=== PATIENT | female | born 1955 | race Caucasian/White ===

== ENCOUNTER 2023-08-04 11:48 | Outpatient (OUT) | payer OTHER, MEDICARE, SELFPAY ==
--- NOTE | 2023-08-04 13:49 | PM.CN ---
Consult Note: HPI Data of Consult Patient: new to practice Consult date: 08/04/23 Requesting Physician: Bouchra Angel MD Primary Care Provider: CLAY TAVERAS Consult Narrative Reason for consult: low back pain Narrative: pleasant 68yof who presents for evaluation. Notes increasing low back pain for past several months. Previously underwent lumbar RFA in 2017, which provided significant relief until recently. Engaged in >6 weeks of provider directed home exercise program, with limited relief. Utilizes tramadol as needed. Denies adverse medication side effects. cc:: CC: Bouchra Angel MD Review of Systems ROS Status of ROS 10 or more systems reviewed and unremarkable except as noted in history and below Meds Home Medications and Allergies Home Medications Medication Instructions Recorded Confirmed Type amlodipine 2.5 mg tablet 2.5 mg PO DAILY 08/04/23 08/04/23 History aspirin 81 mg tablet,delayed 81 mg PO DAILY 08/04/23 08/04/23 History release (Adult Aspirin Regimen) diphenhydramine HCl 50 mg capsule 50 mg PO DAILY PRN sleep 08/04/23 08/04/23 History (Nightime Sleep) ginkgo biloba 40 mg tablet 120 mg PO DAILY 08/04/23 08/04/23 History magnesium 250 mg tablet 500 mg PO DAILY 08/04/23 08/04/23 History meloxicam 15 mg tablet 15 mg PO DAILY 08/04/23 08/04/23 History ytiejugp-qgr-fcnn-FA-Ca carb-vit K 1 tab PO DAILY 08/04/23 08/04/23 History 18 mg iron-400 mcg-500 mg tablet (One-A-Day Womens Formula) omega 1-koj-mdp-fish oil 1,000 mg 1 cap PO BID 08/04/23 08/04/23 History (120 mg-180 mg) capsule (Fish Oil) omeprazole 40 mg capsule,delayed 40 mg PO DAILY 08/04/23 08/04/23 History release rosuvastatin 10 mg tablet (Crestor) 10 mg PO DAILY 08/04/23 08/04/23 History tramadol 50 mg tablet 50 mg PO DAILY 08/04/23 08/04/23 History turmeric 400 mg capsule 400 mg PO BID 08/04/23 08/04/23 History vitamin B complex (Complex B-100 1 tab PO DAILY 08/04/23 08/04/23 History tablet,extended release) zinc 50 mg capsule 50 mg PO DAILY 08/04/23 08/04/23 History Allergies Allergy/AdvReac Type Severity Reaction Status Date / Time No Known Drug Allergies Allergy Verified 08/04/23 13:33 Exam Constitutional Common normals: no apparent distress, oriented x3 and healthy appearing Respiratory Common normals: normal respiratory effort Effort & inspection: able to speak in complete sentences Back & Pelvis Other: Tenderness to palpation in lumbar spine and paraspinal musculature. Pain elicited with flexion, extension, lateral rotation. Facet loading maneuvers positive bilaterally. Coordination intact. Extremity Common normals: normal to inspection Neuro Common normals: oriented x3, CN's II-XII intact bilaterally and no focal motor deficits Psych Common normals: mental status grossly normal and cooperative Assessment and Plan Assessment and Plan (1) Lumbar spondylosis: Plan Pleasant 68yof who presents for evaluation. Failed >6 weeks of conservative measures, as noted above. Given symptoms and previous relief, would schedule for bilateral L4-5, L5-S1 medial branch blocks under fluoroscopic guidance with intention of proceeding to RFA. She is in agreement. Will also obtain lumbar XR to update. Medications reviewed, no changes. Follow up after procedure.
== END 2023-08-04 11:49 | disposition home or self-care (01) ==
PROVIDERS: PCP Internal Medicine; Visit Provider Anesthesiology
DX: M47.816 Spondylosis without myelopathy or radiculopathy, lumbar region (principal)
CPT/HCPCS: G0463

== ENCOUNTER 2023-08-08 08:52 | Outpatient (OUT) | payer OTHER, MEDICARE, SELFPAY ==
--- NOTE | 2023-08-08 08:58 | XR_ITS ---
[address] [address] Patient Name: MIGUEL OSBORN MRN: [id number] date: 1955 Sex: F Assigned Patient Location: [facility] Current Patient Location: Accession/Order Number: [id number] Exam Date: 08/08/2023 09:03 Report Date: 08/09/2023 06:58 At the request of: NON-STAFF PHYSICIAN Procedure: XR lumbar spine 6V w bending Exam: Radiographs: XR lumbar spine 6V w bending Reason for exam: Back Pain Comparison: None XR/XR lumbar spine 6V w bending IMPRESSION: No radiographically evident lumbar spine fractures. Lumbar spine degenerative changes with relatively preserved intervertebral disc heights. Mild broad-based lumbar curvature with apex of curvature to the left. No instability on flexion/extension views. Remainder unremarkable. Electronically authenticated by: TRACE JIMENEZ Date: 08/09/2023 06:58
== END 2023-08-08 08:53 | disposition home or self-care (01) ==
LOC: RAD 08:52
PROVIDERS: PCP Internal Medicine; Visit Provider Anesthesiology
DX: M47.816 Spondylosis without myelopathy or radiculopathy, lumbar region (principal)
CPT/HCPCS: 72114

== ENCOUNTER 2023-08-15 08:22 | Outpatient (OUT) | payer OTHER, MEDICARE, SELFPAY ==
--- NOTE | 2023-08-15 08:25 | XR_ITS ---
The [address] [address] Patient Name: MIGUEL OSBORN MRN: [id number] date: 1955 Sex: F Assigned Patient Location: [facility] Current Patient Location: [facility] Accession/Order Number: [id number] Exam Date: 08/15/2023 08:32 Report Date: 08/15/2023 09:47 At the request of: CLAY TAVERAS Procedure: XR DEXA axial skeleton EXAMINATION: XR DEXA axial skeleton HISTORY: Estrogen Deficiency E28.39 COMPARISON: No relevant comparison available. TECHNIQUE: Dual-energy X-ray absorptiometry (DXA) was performed. FINDINGS: SPINE ANALYSIS: Average bone mineral density is 0.982 g/cm2. T-score (standard deviation relative to young adult mean): -1.6 . HIP ANALYSIS: Lowest bone mineral density is within the left femoral trochanter, 0.489 g/cm2. T-score (standard deviation relative to young adult mean): -3.1 . XR/XR DEXA axial skeleton IMPRESSION: [employer] Classification: Osteoporosis - High Fracture Risk Electronically authenticated by: JAMAL DOHERTY Date: 08/15/2023 09:47
== END 2023-08-15 08:23 | disposition home or self-care (01) ==
LOC: RAD 08:22
PROVIDERS: PCP Internal Medicine; Visit Provider Internal Medicine
DX: E28.39 Other primary ovarian failure (principal); M81.0 Age-related osteoporosis without current pathological fracture
CPT/HCPCS: 77080

== ENCOUNTER 2023-09-01 07:59 | Day surgery (SDC) | payer OTHER, MEDICARE, SELFPAY ==
[2023-09-01 08:34] VITALS: BP 177/91; PULSE 74; RESP 14; TEMP 36.6; O2SAT 100
[2023-09-01] MEDS: LIDOCAINE HCL 2% PF 100 MG/5 ML VIAL INJ (09:11)
[2023-09-01] MEDS: BUPIVACAINE HCL 0.5% PF 50 MG/10 ML VIAL INJ (09:11)
[2023-09-01] MEDS: TRIAMCINOLONE ACETONIDE 40 MG/ML VIAL INJ (09:12)
--- NOTE | 2023-09-01 09:14 | W.PM.PROCNOT ---
Date of procedure: 09/01/23 Pre-op diagnosis: Lumbosacral spondylosis Post-op diagnosis: same as pre-op Procedure: Procedure: Bilateral L4-5, L5-S1 medial branch blocks Medications: Bupivacaine 0.25% 4cc The patient was seen and examined in the preoperative holding area.? An informed consent was obtained and placed on the chart.? The patient was brought to the medical procedure unit and placed in the prone position.? A timeout was completed verifying correct patient, procedure site, positioning, plan, and special equipment.? Using aseptic technique, the needle was placed at left L4. Under direct fluoroscopic visualization a Quincke-tipped spinal needle was advanced to the junction of the superior articulating process with the transverse process at the designated medial branch segment.? Preceded by negative aspiration, the above-mentioned injectate was placed in 1 mL aliquots.? The procedure was repeated at left L5, S1.? The needle was removed and insertion site was covered. The same procedure, at the same levels, was completed on the right side. The patient was taken to the postprocedural recovery area and monitored for an appropriate length of time before found suitable for discharge in the company of a responsible adult. Anesthesia: Local Surgeon: Bouchra Angel Pathology: none sent Condition: stable Disposition: no change
[2023-09-01 09:58] VITALS: BP 226/105; BP 229/95; PULSE 77; PULSE 86; RESP 18; O2SAT 95
== END 2023-09-01 09:19 | disposition home or self-care (01) ==
PROVIDERS: PCP Internal Medicine; Visit Provider Anesthesiology
DX: M47.816 Spondylosis without myelopathy or radiculopathy, lumbar region (principal)
CPT/HCPCS: 64493; 64494

== ENCOUNTER 2023-09-11 07:45 | Outpatient (OUT) | payer OTHER, MEDICARE, SELFPAY ==
--- NOTE | 2023-09-11 07:56 | P.CN_ITS ---
Consult Note: HPI Data of Consult Patient: known to practice within the last 3 years Requesting Physician: Tierney Kohli NP Primary Care Provider: CLAY TAVERAS Consult Narrative Reason for consult: F/u Narrative: Patricia Gonzalez a pleasant 68 year old female presents for evaluation and management of chronic low back pain. Today rating pain as a 4/10, describes it as aching and uncomfortable, worse with activity. Patient recently underwent bilateral L4- 5 L5-S1 mbb#1 with 80% pain relief and functional improvement immediatey following and days after the procedure. Patient noticed she was able to stand longer, carry heavy things, and ambulate without pain. Did not need to take pain medication for 4-5 days after. Patient would like to discuss MBB#2 working towards thermal RFA. cc:: CC: Tierney Kohli NP Review of Systems ROS Status of ROS 10 or more systems reviewed and unremarkable except as noted in history and below Musculoskeletal Reports: back pain PFSH PFSH Medical History (Updated 08/22/23 @ 12:19 by Cydney Vasquez) Acid reflux ?K21.9 - Gastro-esophageal reflux disease without esophagitis (ICD-10) High cholesterol ?E78.00 - Pure hypercholesterolemia, unspecified (ICD-10) Hypertension ?I10 - Essential (primary) hypertension (ICD-10) Low back pain ?M54.50 - Low back pain, unspecified (ICD-10) Osteoarthritis ?M19.90 - Unspecified osteoarthritis, unspecified site (ICD-10) Surgical History History of appendectomy ?Z90.49 - Acquired absence of other specified parts of digestive tract (ICD- 10) History of hysterectomy ?Z90.710 - Acquired absence of both cervix and uterus (ICD-10) Meds Home Medications and Allergies Home Medications Medication Instructions Recorded Confirmed Type amlodipine 2.5 mg tablet 2.5 mg PO DAILY 08/04/23 09/01/23 History aspirin 81 mg tablet,delayed 81 mg PO DAILY 08/04/23 09/01/23 History release (Adult Aspirin Regimen) diphenhydramine HCl 50 mg capsule 50 mg PO DAILY PRN sleep 08/04/23 09/01/23 History (Nightime Sleep) ginkgo biloba 40 mg tablet 120 mg PO DAILY 08/04/23 09/01/23 History magnesium 250 mg tablet 500 mg PO DAILY 08/04/23 09/01/23 History meloxicam 15 mg tablet 15 mg PO DAILY 08/04/23 09/01/23 History kuhscqzz-zjl-bmah-FA-Ca carb-vit K 1 tab PO DAILY 08/04/23 09/01/23 History 18 mg iron-400 mcg-500 mg tablet (One-A-Day Womens Formula) omega 7-txc-ihq-fish oil 1,000 mg 1 cap PO BID 08/04/23 09/01/23 History (120 mg-180 mg) capsule (Fish Oil) omeprazole 40 mg capsule,delayed 40 mg PO DAILY 08/04/23 09/01/23 History release rosuvastatin 10 mg tablet (Crestor) 10 mg PO DAILY 08/04/23 09/01/23 History tramadol 50 mg tablet 50 mg PO DAILY 08/04/23 09/01/23 History turmeric 400 mg capsule 400 mg PO BID 08/04/23 09/01/23 History vitamin B complex (Complex B-100 1 tab PO DAILY 08/04/23 09/01/23 History tablet,extended release) zinc 50 mg capsule 50 mg PO DAILY 08/04/23 09/01/23 History Allergies Allergy/AdvReac Type Severity Reaction Status Date / Time No Known Drug Allergies Allergy Verified 08/04/23 13:33 Exam Constitutional Documenting provider has reviewed patient's vital signs: yes Common normals: no apparent distress, oriented x3, healthy appearing, alert and well nourished General appearance: cooperative [facility] Common normals: normocephalic, hearing grossly normal bilaterally and moist oral mucous membranes Head and scalp: normocephalic Eye Common normals: PERRL Pupil: PERRL Neck & C-Spine Common normals: full ROM General: normal visual inspection Chest Common normals: inspection of chest normal Respiratory Common normals: normal respiratory effort, no retractions and no use of accessory muscles Back & Pelvis Common normals: straight leg raise negative bilaterally Lumbar spine/lower back: ROM limited and pain with ROM Sacroiliac joints: SI joints normal Other: bilateral facet loading axial low back pain no radiculopathy Extremity Common normals: normal to inspection and full ROM Neuro Common normals: oriented x3, CN's II-XII intact bilaterally, moves all extremities, no focal motor deficits, no sensory deficits noted, deep tendon reflexes 2+ bilaterally and gait normal Sensorium/orientation: alert Motor exam: strength 5/5 throughout and no movement abnormalities noted Psych Common normals: mental status grossly normal, thought process normal, cooperative, affect normal, speech normal and activity/motor behavior normal Speech: normal speech Thought process: normal thought process Results Additional Findings Additional findings: I have checked an [place] report on this patient today and there are no aberrancies noted in the prescribing history.?? A drug screen was completed and reviewed within the last year, and if there has not been a drug screen completed we ordered one today to monitor higher risk, state monitored pain medication use. As part of providing excellent, safe, comprehensive care, the following was completed at our patient's visit: 1. A medication reconciliation and review to ensure accurate knowledge of current/active medications, including asking our patients to inform us about any nzyv-cad-djzluqa medications or herbal remedies/nutritional supplements/alternative remedies. 2. A review to specifically ensure our patients have had annual screening for: elevated body mass index (BMI), tobacco use, screening for depression, and s creening for unhealthy alcohol use. When screening is concerning, patients are provided with education and the specific recommendation to discuss the concerning health issue and treatment options with their primary care provider. Assessment and Plan Assessment and Plan (1) Lumbar spondylosis: Assessment and Plan: The patient has had over 3 months of moderate to severe low back pain with functional impairment and inadequate response to conservative care including NSAIDS (unless there are contraindication such as concurrent blood thinners), multiple oral or topical pain medications, and home exercise program/physical therapy.? Patient has completed >6 weeks of guided home exercise program and/or formal physical therapy program without relief of their symptoms.? I have reviewed the imaging of the lumbar spine and no red flags were identified.? The imaging reveals radiographic findings consistent with lumbar spondylosis We discussed the risks and benefits of the procedure with the patient, and we are NOT planning on using sedation as outlined in the guidelines from Medicare unless there is a documented reason that sedation would be strongly recommended.?? The procedure will be completed with fluoroscopic guidance.? (2) Low back pain: Plan -continue prn mobic and tramadol -continue HEP -proceed with bilateral L4-5 L5-S1 mbb #2 under fluoroscopy -f/u 1 week after
--- NOTE | 2023-10-09 14:42 | PM.CN ---
Consult Note: HPI Data of Consult Patient: known to practice within the last 3 years Consult date: 10/09/23 Requesting Physician: Tierney Kohli NP Primary Care Provider: CLAY TAVERAS Consult Narrative Reason for consult: f/u Narrative: Patricia Gonzalez a pleasant 68 year old female presents for evaluation and management of chronic low back pain. Recently underwent bilateral L4-5 L5-S1 MBB #2 with 100% pain relief immediately following and hours after the procedure. Today rating pain 1/10 in low back. ETHAN 26% today with mild pain, pain with ADLs, pain with lifting, pain with walking, sitting, and interferes with sleep. Patient would like to discuss the thermal RFA. cc:: CC: Tierney Kohli NP Review of Systems ROS Status of ROS 10 or more systems reviewed and unremarkable except as noted in history and below Musculoskeletal Reports: back pain PFSH PFSH Medical History Acid reflux ?K21.9 - Gastro-esophageal reflux disease without esophagitis (ICD-10) High cholesterol ?E78.00 - Pure hypercholesterolemia, unspecified (ICD-10) Hypertension ?I10 - Essential (primary) hypertension (ICD-10) Low back pain ?M54.50 - Low back pain, unspecified (ICD-10) Osteoarthritis ?M19.90 - Unspecified osteoarthritis, unspecified site (ICD-10) Surgical History History of appendectomy ?Z90.49 - Acquired absence of other specified parts of digestive tract (ICD-10) History of hysterectomy ?Z90.710 - Acquired absence of both cervix and uterus (ICD-10) Meds Home Medications and Allergies Home Medications Medication Instructions Recorded Confirmed Type amlodipine 2.5 mg tablet 2.5 mg PO DAILY 08/04/23 09/29/23 History aspirin 81 mg tablet,delayed 81 mg PO DAILY 08/04/23 09/29/23 History release (Adult Aspirin Regimen) diphenhydramine HCl 50 mg capsule 50 mg PO DAILY PRN sleep 08/04/23 09/29/23 History (Nightime Sleep) ginkgo biloba 40 mg tablet 120 mg PO DAILY 08/04/23 09/29/23 History magnesium 250 mg tablet 500 mg PO DAILY 08/04/23 09/29/23 History meloxicam 15 mg tablet 15 mg PO DAILY 08/04/23 09/29/23 History gwexqmms-qwz-hfyy-FA-Ca carb-vit K 1 tab PO DAILY 08/04/23 09/29/23 History 18 mg iron-400 mcg-500 mg tablet (One-A-Day Womens Formula) omega 1-aqo-vpe-fish oil 1,000 mg 1 cap PO BID 08/04/23 09/29/23 History (120 mg-180 mg) capsule (Fish Oil) omeprazole 40 mg capsule,delayed 40 mg PO DAILY 08/04/23 09/29/23 History release rosuvastatin 10 mg tablet (Crestor) 10 mg PO DAILY 08/04/23 09/29/23 History tramadol 50 mg tablet 50 mg PO DAILY 08/04/23 09/29/23 History turmeric 400 mg capsule 400 mg PO BID 08/04/23 09/29/23 History vitamin B complex (Complex B-100 1 tab PO DAILY 08/04/23 09/29/23 History tablet,extended release) zinc 50 mg capsule 50 mg PO DAILY 08/04/23 09/29/23 History Allergies Allergy/AdvReac Type Severity Reaction Status Date / Time No Known Drug Allergies Allergy Verified 09/29/23 10:33 Exam Constitutional Documenting provider has reviewed patient's vital signs: yes Common normals: no apparent distress, oriented x3, healthy appearing, alert and well nourished General appearance: cooperative [facility] Common normals: normocephalic, hearing grossly normal bilaterally and moist oral mucous membranes Head and scalp: normocephalic Eye Common normals: PERRL Pupil: PERRL Neck & C-Spine Common normals: full ROM General: normal visual inspection Chest Common normals: inspection of chest normal Respiratory Common normals: normal respiratory effort, no retractions and no use of accessory muscles Back & Pelvis Common normals: straight leg raise negative bilaterally Lumbar spine/lower back: ROM limited and pain with ROM Sacroiliac joints: SI joints normal Other: bilateral facet loading axial low back pain no radiculopathy Extremity Common normals: normal to inspection and full ROM Neuro Common normals: oriented x3, CN's II-XII intact bilaterally, moves all extremities, no focal motor deficits, no sensory deficits noted, deep tendon reflexes 2+ bilaterally and gait normal Sensorium/orientation: alert Motor exam: strength 5/5 throughout and no movement abnormalities noted Psych Common normals: mental status grossly normal, thought process normal, cooperative, affect normal, speech normal and activity/motor behavior normal Speech: normal speech Thought process: normal thought process Assessment and Plan Assessment and Plan (1) Lumbar spondylosis: Assessment and Plan: The patient has had over 3 months of moderate to severe low back pain with functional impairment and inadequate response to conservative care including NSAIDS (unless there are contraindication such as concurrent blood thinners), multiple oral or topical pain medications, and home exercise program/physical therapy.? Patient has completed >6 weeks of guided home exercise program and/or formal physical therapy program without relief of their symptoms.? I have reviewed the imaging of the lumbar spine and no red flags were identified.? The imaging reveals radiographic findings consistent with lumbar spondylosis We discussed the risks and benefits of the procedure with the patient, and we are NOT planning on using sedation as outlined in the guidelines from Medicare unless there is a documented reason that sedation would be strongly recommended.?? The procedure will be completed with fluoroscopic guidance.? (2) Low back pain: Plan -continue prn mobic and tramadol -continue HEP -proceed bilateral L4-5 L5-S1 thermal RFA under fluoroscopy with 10mg PO valium prior to procedure -f/u 1 month after
== END 2023-09-11 07:46 | disposition home or self-care (01) ==
LOC: PM 09-16 15:37
PROVIDERS: PCP Internal Medicine; Visit Provider Nurse Practitioner
DX: M47.896 Other spondylosis, lumbar region (principal); M54.50 Low back pain, unspecified
CPT/HCPCS: G0463

== ENCOUNTER 2023-09-29 09:31 | Day surgery (SDC) | payer OTHER, MEDICARE, SELFPAY ==
[2023-09-29 10:30] VITALS: BP 190/94; PULSE 72; RESP 16; TEMP 36.4; O2SAT 99
[2023-09-29 10:58] VITALS: BP 185/113; PULSE 76; RESP 18; O2SAT 96
[2023-09-29] MEDS: LIDOCAINE HCL 2% PF 100 MG/5 ML VIAL INJ (11:00)
[2023-09-29] MEDS: BUPIVACAINE HCL 0.5% PF 50 MG/10 ML VIAL INJ (11:00)
[2023-09-29 11:01] VITALS: BP 195/93; PULSE 80; RESP 18; O2SAT 97
--- NOTE | 2023-09-29 11:01 | W.PM.PROCNOT ---
Date of procedure: 09/29/23 Pre-op diagnosis: Lumbar spondylosis Post-op diagnosis: same as pre-op Procedure: Procedure: Bilateral L4-5, L5-S1 medial branch block Medications: Bupivacaine 0.5% 4cc x2 The patient was seen and examined in the preoperative holding area.? An informed consent was obtained and placed on the chart.? The patient was brought to the medical procedure unit and placed in the prone position.? A timeout was completed verifying correct patient, procedure site, positioning, plan, and special equipment.? Using aseptic technique, the needle was placed at left L4. Under direct fluoroscopic visualization a Quincke-tipped spinal needle was advanced to the junction of the superior articulating process with the transverse process at the designated medial branch segment.? Preceded by negative aspiration, the above-mentioned injectate was placed in 1 mL aliquots.? The procedure was repeated at left L5, S1.? The needle was removed and insertion site was covered. The same procedure, at the same levels, was completed on the right side. The patient was taken to the postprocedural recovery area and monitored for an appropriate length of time before found suitable for discharge in the company of a responsible adult. Anesthesia: Local Surgeon: Bouchra Angel Pathology: none sent Condition: stable Disposition: no change
== END 2023-09-29 11:06 | disposition home or self-care (01) ==
PROVIDERS: PCP Internal Medicine; Visit Provider Anesthesiology
DX: M47.816 Spondylosis without myelopathy or radiculopathy, lumbar region (principal)
CPT/HCPCS: 64493; 64494

== ENCOUNTER 2023-10-09 14:33 | Outpatient (OUT) | payer OTHER, MEDICARE, SELFPAY ==
--- NOTE | 2023-10-09 14:42 | PM.CN ---
Consult Note: HPI Data of Consult Patient: known to practice within the last 3 years Consult date: 10/09/23 Requesting Physician: Tierney Kohli NP Primary Care Provider: CLAY TAVERAS Consult Narrative Reason for consult: f/u Narrative: Patricia Gonzalez a pleasant 68 year old female presents for evaluation and management of chronic low back pain. Recently underwent bilateral L4-5 L5-S1 MBB #2 with 100% pain relief immediately following and hours after the procedure. Today rating pain 1/10 in low back. ETHAN 26% today with mild pain, pain with ADLs, pain with lifting, pain with walking, sitting, and interferes with sleep. Patient would like to discuss the thermal RFA. cc:: CC: Tierney Kohli NP Review of Systems ROS Status of ROS 10 or more systems reviewed and unremarkable except as noted in history and below Musculoskeletal Reports: back pain PFSH PFSH Medical History Acid reflux ?K21.9 - Gastro-esophageal reflux disease without esophagitis (ICD-10) High cholesterol ?E78.00 - Pure hypercholesterolemia, unspecified (ICD-10) Hypertension ?I10 - Essential (primary) hypertension (ICD-10) Low back pain ?M54.50 - Low back pain, unspecified (ICD-10) Osteoarthritis ?M19.90 - Unspecified osteoarthritis, unspecified site (ICD-10) Surgical History History of hysterectomy ?Z90.710 - Acquired absence of both cervix and uterus (ICD-10) History of appendectomy ?Z90.49 - Acquired absence of other specified parts of digestive tract (ICD-10) Social History Smoking status: Former smoker Meds Home Medications and Allergies Home Medications Medication Instructions Recorded Confirmed Type amlodipine 2.5 mg tablet 2.5 mg PO DAILY 08/04/23 11/10/23 History aspirin 81 mg tablet,delayed 81 mg PO DAILY 08/04/23 11/10/23 History release (Adult Aspirin Regimen) diphenhydramine HCl 50 mg capsule 50 mg PO DAILY PRN sleep 08/04/23 11/10/23 History (Nightime Sleep) ginkgo biloba 40 mg tablet 120 mg PO DAILY 08/04/23 11/10/23 History magnesium 250 mg tablet 500 mg PO DAILY 08/04/23 11/10/23 History meloxicam 15 mg tablet 15 mg PO DAILY 08/04/23 11/10/23 History uappmdeb-has-qatk-FA-Ca carb-vit K 1 tab PO DAILY 08/04/23 11/10/23 History 18 mg iron-400 mcg-500 mg tablet (One-A-Day Womens Formula) omega 8-rfb-yau-fish oil 1,000 mg 1 cap PO BID 08/04/23 11/10/23 History (120 mg-180 mg) capsule (Fish Oil) omeprazole 40 mg capsule,delayed 40 mg PO DAILY 08/04/23 11/10/23 History release rosuvastatin 10 mg tablet (Crestor) 10 mg PO DAILY 08/04/23 11/10/23 History turmeric 400 mg capsule 400 mg PO BID 08/04/23 11/10/23 History vitamin B complex (Complex B-100 1 tab PO DAILY 08/04/23 11/10/23 History tablet,extended release) zinc 50 mg capsule 50 mg PO DAILY 08/04/23 11/10/23 History methocarbamol 750 mg tablet 750 mg PO Q6H PRN pain #30 tabs 11/04/23 11/10/23 Rx Allergies Allergy/AdvReac Type Severity Reaction Status Date / Time No Known Drug Allergies Allergy Verified 11/10/23 10:22 Exam Constitutional Documenting provider has reviewed patient's vital signs: yes Common normals: no apparent distress, oriented x3, healthy appearing, alert and well nourished General appearance: cooperative [facility] Common normals: normocephalic, hearing grossly normal bilaterally and moist oral mucous membranes Head and scalp: normocephalic Eye Common normals: PERRL Pupil: PERRL Neck & C-Spine Common normals: full ROM General: normal visual inspection Chest Common normals: inspection of chest normal Respiratory Common normals: normal respiratory effort, no retractions and no use of accessory muscles Back & Pelvis Common normals: straight leg raise negative bilaterally Lumbar spine/lower back: ROM limited and pain with ROM Sacroiliac joints: SI joints normal Other: bilateral facet loading axial low back pain no radiculopathy Extremity Common normals: normal to inspection and full ROM Neuro Common normals: oriented x3, CN's II-XII intact bilaterally, moves all extremities, no focal motor deficits, no sensory deficits noted, deep tendon reflexes 2+ bilaterally and gait normal Sensorium/orientation: alert Motor exam: strength 5/5 throughout and no movement abnormalities noted Psych Common normals: mental status grossly normal, thought process normal, cooperative, affect normal, speech normal and activity/motor behavior normal Speech: normal speech Thought process: normal thought process Assessment and Plan Assessment and Plan (1) Lumbar spondylosis: Assessment and Plan: The patient has had over 3 months of moderate to severe low back pain with functional impairment and inadequate response to conservative care including NSAIDS (unless there are contraindication such as concurrent blood thinners), multiple oral or topical pain medications, and home exercise program/physical therapy.? Patient has completed >6 weeks of guided home exercise program and/or formal physical therapy program without relief of their symptoms.? I have reviewed the imaging of the lumbar spine and no red flags were identified.? The imaging reveals radiographic findings consistent with lumbar spondylosis We discussed the risks and benefits of the procedure with the patient, and we are NOT planning on using sedation as outlined in the guidelines from Medicare unless there is a documented reason that sedation would be strongly recommended.?? The procedure will be completed with fluoroscopic guidance.? (2) Low back pain: Plan -continue prn mobic and tramadol -continue HEP -proceed bilateral L4-5 L5-S1 thermal RFA under fluoroscopy with 10mg PO valium prior to procedure -f/u 1 month after
== END 2023-10-09 14:34 | disposition home or self-care (01) ==
LOC: PM 14:34
PROVIDERS: PCP Internal Medicine; Visit Provider Anesthesiology
DX: M47.816 Spondylosis without myelopathy or radiculopathy, lumbar region (principal); M54.50 Low back pain, unspecified
CPT/HCPCS: G0463

== ENCOUNTER 2023-11-04 06:13 | Emergency (ER) | payer OTHER, MEDICARE, SELFPAY ==
[2023-11-04 06:16] VITALS: BP 160/105; PULSE 87; RESP 18; TEMP 36.6; O2SAT 100; BMI 28.1
[2023-11-04 06:20] VITALS: O2SAT 100
--- NOTE | 2023-11-04 06:20 | ECG_ITS ---
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
[2023-11-04 06:21] VITALS: BP 191/126; PULSE 90; RESP 31; O2SAT 100
[2023-11-04 06:25] VITALS: BP 175/101; PULSE 80; RESP 17; O2SAT 98
--- NOTE | 2023-11-04 06:27 | ED_ITS ---
HPI - General Adult General Chief complaint: Dizziness Stated complaint: WEAKNESS Time Seen by Provider: 11/04/23 06:20 Source: patient Mode of arrival: walk-in Limitations: no limitations History of Present Illness HPI narrative: This 68-year-old female presents for evaluation of multiple complaints. She states that she was supposed to have back surgery today with Dr. Denton, but he had a in the family and had to postpone her surgery. She states she woke up and had her usual low back pain and took a tramadol for her pain. She then started feeling nauseated and had some blurred vision. She states she feels foggy. She has some mild anterior chest pain. She denies any radiation of this. She has upper back pain today that is different than her usual back pain and worse when she takes a deep breath. She has also had a cold for the past 2 weeks. She denies any fever. She denies any productive cough. She states that she is nauseated but has not vomited. She has not had any diarrhea. She has a remote history of tobacco use but is not currently is tobacco smoker. Her states she has not had any slurred speech or confusion. She states she feels nauseated worse than she did when she 1st got up because she took her vitamins before coming to the emergency department. She has no focal weakness numbness or tingling. She has not had any recent falls. Related Data Home Medications Medication Instructions Recorded Confirmed amlodipine 2.5 mg tablet 2.5 mg PO DAILY 08/04/23 11/04/23 aspirin 81 mg tablet,delayed 81 mg PO DAILY 08/04/23 11/04/23 release (Adult Aspirin Regimen) diphenhydramine HCl 50 mg capsule 50 mg PO DAILY PRN sleep 08/04/23 11/04/23 (Nightime Sleep) ginkgo biloba 40 mg tablet 120 mg PO DAILY 08/04/23 11/04/23 magnesium 250 mg tablet 500 mg PO DAILY 08/04/23 11/04/23 meloxicam 15 mg tablet 15 mg PO DAILY 08/04/23 11/04/23 ktegtowt-uco-autk-FA-Ca carb-vit K 1 tab PO DAILY 08/04/23 11/04/23 18 mg iron-400 mcg-500 mg tablet (One-A-Day Womens Formula) omega 6-xxf-ljr-fish oil 1,000 mg 1 cap PO BID 08/04/23 11/04/23 (120 mg-180 mg) capsule (Fish Oil) omeprazole 40 mg capsule,delayed 40 mg PO DAILY 08/04/23 11/04/23 release rosuvastatin 10 mg tablet (Crestor) 10 mg PO DAILY 08/04/23 11/04/23 turmeric 400 mg capsule 400 mg PO BID 08/04/23 11/04/23 vitamin B complex (Complex B-100 1 tab PO DAILY 08/04/23 11/04/23 tablet,extended release) zinc 50 mg capsule 50 mg PO DAILY 08/04/23 11/04/23 Allergies Allergy/AdvReac Type Severity Reaction Status Date / Time No Known Drug Allergies Allergy Verified 09/29/23 10:33 Review of Systems ROS Status of ROS 10 or more systems reviewed and unremark able except as noted in history and below [facility] Medical History Acid reflux ?K21.9 - Gastro-esophageal reflux disease without esophagitis (ICD-10) High cholesterol ?E78.00 - Pure hypercholesterolemia, unspecified (ICD-10) Hypertension ?I10 - Essential (primary) hypertension (ICD-10) Low back pain ?M54.50 - Low back pain, unspecified (ICD-10) Osteoarthritis ?M19.90 - Unspecified osteoarthritis, unspecified site (ICD-10) Surgical History History of appendectomy ?Z90.49 - Acquired absence of other specified parts of digestive tract (ICD- 10) History of hysterectomy ?Z90.710 - Acquired absence of both cervix and uterus (ICD-10) Social History Smoking status: Former smoker Exam Narrative Exam Narrative: Nurses note and vital signs reviewed and patient is not hypoxic. Patient's blood pressure was notably elevated at 167/85 General: Alert, nontoxic but mildly uncomfortable appearing female, no respiratory distress Skin: Warm, dry, no pallor noted. There is no rash noted. Head: Normocephalic, atraumatic Eye: Normal conjunctiva, no drainage, EOMI. PERRL, Vision is grossly intact, no nystagmus noted Ears, Nose, Mouth, and Throat: oral mucosa is moist. Nares patent. Mouth without vesicles. Ear canals patent. Tm's without Erythema, Her pharynx is not kashmir thematous, no exudate noted Cardiovascular: Regular Rate and Rhythm S1S2, no murmurs, rubs or gallops Respiratory: Patient is in no distress, no accessory muscle use, lungs are clear to auscultation, no wheezing, rales or rhonchi Back: No midline bony vertebral tenderness. There is subjective pain in the mid thoracic region with deep breathing GI: Normal bowel sounds, no tenderness to palpation, no masses appreciated. No rebound, guarding, or rigidity noted. Musculoskeletal: The patient has no evidence of calf tenderness, no pitting edema, symmetrical pulses noted bilaterally Neurological: A&O x4, normal speech Psychiatric: Cooperative Constitutional Vital Signs, click to edit/add: Last Vital Signs Temp 97.9 F 11/04/23 06:16 Pulse 87 11/04/23 06:16 Resp 18 11/04/23 06:16 BP 160/105 H 11/04/23 06:16 Pulse Ox 100 11/04/23 06:16 Course Vital Signs Vital signs: Vital Signs Temperature 97.9 F 11/04/23 06:16 Pulse Rate 87 11/04/23 06:16 Respiratory Rate 18 11/04/23 06:16 Blood Pressure 160/105 H 11/04/23 06:16 Pulse Oximetry 100 11/04/23 06:16 Temperature 97.9 F 11/04/23 06:16 Pulse Rate 87 11/04/23 06:16 Respiratory Rate 18 11/04/23 06:16 Blood Pressure 160/105 H 11/04/23 06:16 Pulse Oximetry 100 11/04/23 06:16 Medical Decision Making ECG Data Attestation: I personally reviewed and interpreted this ECG as follows: (Sinus rhythm at 83 beats for minute, normal axis, no acute ST segment elevation or T- wave inversion) Discharge Plan Discharge Chief Complaint: Dizziness Patient Disposition: Still a Patient Prescriptions / Home Meds: No Action omeprazole 40 mg capsule,delayed release(DR/EC) 40 mg PO DAILY rosuvastatin [Crestor] 10 mg tablet 10 mg PO DAILY meloxicam 15 mg tablet 15 mg PO DAILY amlodipine 2.5 mg tablet 2.5 mg PO DAILY turmeric 400 mg capsule 400 mg PO BID One-A-Day Womens Formula 18 mg iron-400 mcg-500 mg tablet 1 tab PO DAILY zinc 50 mg capsule 50 mg PO DAILY omega 8-bpf-obg-fish oil [Fish Oil] 1,000 mg (120 mg-180 mg) capsule 1 cap PO BID ginkgo biloba 40 mg tablet 120 mg PO DAILY Rx Instructions: give with meal/snack Complex B-100 Tablet Extended Release 1 tab PO DAILY aspirin [Adult Aspirin Regimen] 81 mg tablet,delayed release (DR/EC) 81 mg PO DAILY magnesium 250 mg tablet 500 mg PO DAILY diphenhydramine HCl [Nightime Sleep] 50 mg capsule 50 mg PO DAILY PRN (Reason: sleep) Referrals: CLAY TAVERAS [Primary Care Provider] - 1 week
[2023-11-04 06:30] VITALS: BP 167/85; PULSE 73; RESP 14; O2SAT 99
--- NOTE | 2023-11-04 06:41 | CT_ITS ---
The [address] [address] Patient Name: MIGUEL OSBORN MRN: [id number] date: 1955 Sex: F Assigned Patient Location: ER Current Patient Location: ER Accession/Order Number: [id number] Exam Date: 11/04/2023 06:50 Report Date: 11/04/2023 07:31 At the request of: TIMOTHY MARKER Procedure: CT head/brain wo con EXAMINATION: CT head/brain wo con, 11/04/2023 6:50 AM EST HISTORY: headache, blurred vision COMPARISON: None. TECHNIQUE: CT scan of the head was performed IV contrast. CT dose reduction technique was used, including Automated Exposure Control. FINDINGS: BRAIN: No edema, hemorrhage, mass, acute infarction, or inappropriate atrophy. CSF SPACES: No hydrocephalus, subarachnoid hemorrhage, or mass. Appropriate for age. SKULL: No fracture, mass, or other significant visible lesion. SINUSES: No significant mucosal thickening or fluid on the limited views. ORBITS: No appreciable abnormality on the limited views. OTHER: Anterior falx calcifications CT/CT head/brain wo con IMPRESSION: No acute intracranial abnormality Electronically authenticated by: ABIMAEL PABLO Date: 11/04/2023 07:31
--- NOTE | 2023-11-04 06:43 | XR_ITS ---
The [address] [address] Patient Name: MIGUEL OSBORN MRN: [id number] date: 1955 Sex: F Assigned Patient Location: ED.MAIN Current Patient Location: ED.MAIN Accession/Order Number: [id number] Exam Date: 11/04/2023 06:50 Report Date: 11/04/2023 07:18 At the request of: TIMOTHY MARKER Procedure: XR chest 2V EXAMINATION: XR chest 2V HISTORY: SOB COMPARISON: No relevant comparison available. TECHNIQUE: PA and lateral FINDINGS: LUNGS: No significant pulmonary parenchymal abnormalities. VASCULATURE: No increased pulmonary vasculature. PLEURA: No pneumothorax, effusion, or pleural thickening. CARDIAC: No cardiomegaly or cardiac silhouette abnormality. MEDIASTINUM: No visible mass or adenopathy. BONES: S-shaped scoliosis with underlying degenerative changes OTHER: Negative. XR/XR chest 2V IMPRESSION: No acute cardiopulmonary process Electronically authenticated by: ABIMAEL PABLO Date: 11/04/2023 07:18
[2023-11-04] MEDS: ONDANSETRON PF 4 MG/2 ML VIAL IV (06:46)
[2023-11-04 06:53] LABS: Basophils Absolute Auto 0.1 10^3/uL (0.0-0.1); Basophils Percent Auto 1.2 % (0.2-2.0); Eosinophils Absolute Auto 0.3 10^3/uL (0.0-0.7); Eosinophils Percent Auto 3.9 % (0.9-7.0); Hematocrit 41.7 % (36.0-48.0); Hemoglobin 13.8 g/dL (12.0-16.0); Immature Granulocytes Abs Auto 0.02 10^3/uL (0.00-0.03); Immature Granulocytes Pct Auto 0.2 % (0.0-0.5); Lymphocytes Absolute Auto 4.1 10^3/uL (1.2-3.8); Lymphocytes Percent Auto 46.9 % (20.5-60.0); Mean Corpuscular HGB Conc 33.1 g/dL (29.9-35.2); Mean Corpuscular Hemoglobin 30.2 pg (26.7-34.0); Mean Corpuscular Volume 91.2 fL (81.0-99.0); Mean Platelet Volume 9.7 fL (9.5-13.5); Monocytes Absolute Auto 0.8 10^3/uL (0.3-0.8); Monocytes Percent Auto 9.2 % (1.7-12.0); Neutrophils Absolute Auto 3.3 10^3/uL (1.4-6.5); Neutrophils Percent Auto 38.6 % (43.0-75.0); Platelet Count 347 10^3/uL (150-450); Red Blood Count 4.57 10^6/uL (4.20-5.40); White Blood Count 8.7 10^3/uL (4.0-11.0)
[2023-11-04 07:03] LABS: Alanine Aminotransferase 26 U/L (14-59); Albumin Level 3.7 g/dL (3.4-5.0); Alkaline Phosphatase 89 U/L (46-116); Anion Gap 13.9; Aspartate Amino Transferase 11 U/L (15-37); BUN Creatinine Ratio 25.8; Bilirubin Total 0.5 mg/dL (0.2-1.0); Calcium 9.3 mg/dL (8.5-10.1); Carbon Dioxide 28.5 mmol/L (21.0-32.0); Chloride 104 mmol/L (98-107); Estimated GFR (African America >60 (>=60); Estimated GFR (Non-African Ame >60 (>=60); Globulin 3.7 g/dL; Glucose 93 mg/dL (74-106); Potassium 3.4 mmol/L (3.5-5.1); Sodium 143 mmol/L (136-145); Total Protein 7.4 g/dL (6.4-8.2)
[2023-11-04 07:05] LABS: Troponin I High Sensitivity 4.6 pg/mL (4.0-51.3)
[2023-11-04] MEDS: KETOROLAC TROMETHAMINE 30 MG/ML VIAL IVP (07:19)
[2023-11-04] MEDS: METHOCARBAMOL 500 MG TABLET PO (07:19)
== END 2023-11-04 07:56 | disposition home or self-care (01) ==
PROVIDERS: Emergency Medicine; Emergency Provider Emergency Medicine; PCP Internal Medicine
DX: R51.9 Headache, unspecified (principal); M54.9 Dorsalgia, unspecified; H53.9 Unspecified visual disturbance; Z87.891 Personal history of nicotine dependence; Z79.82 Long term (current) use of aspirin; Z79.899 Other long term (current) drug therapy; K21.9 Gastro-esophageal reflux disease without esophagitis; E78.00 Pure hypercholesterolemia, unspecified; I10 Essential (primary) hypertension; M19.90 Unspecified osteoarthritis, unspecified site; Z90.710 Acquired absence of both cervix and uterus; Z90.49 Acquired absence of other specified parts of digestive tract
CPT/HCPCS: 36415; 70450; 71046; 80053; 81001; 84484; 85025; 85378; 93005; 96374; 96375; 99285

== ENCOUNTER 2023-11-10 09:30 | Day surgery (SDC) | payer OTHER, MEDICARE, SELFPAY ==
[2023-11-10 10:25] VITALS: BP 181/96; PULSE 92; RESP 14; TEMP 36.7; O2SAT 95
[2023-11-10 10:56] VITALS: BP 202/89; PULSE 76; RESP 18; O2SAT 96
[2023-11-10 11:03] VITALS: BP 201/97; PULSE 84; RESP 18; O2SAT 97
--- NOTE | 2023-11-10 11:11 | P.ON_ITS ---
Date of procedure: 11/10/23 Pre-op diagnosis: Lumbar spondylosis Post-op diagnosis: same as pre-op Procedure: Procedure: Bilateral L4-5, L5-S1 radiofrequency ablation Medications: Bupivacaine 0.25% 6cc, lidocaine 2% 5cc, kenalog 80mg The patient was seen and examined in the preoperative holding area.? The site was marked.? Written informed consent was obtained and placed on the chart.? The patient was brought to the medical procedure unit and placed in the prone position.? A timeout was completed verifying correct patient, procedure, positioning, and special requirements.? The skin overlying the target points, the designated medial branch, were prepped and draped in the usual sterile fashion.? The target point was achieved with a 20-gauge 15 cm with a 10 mm curved active tip radiofrequency cannula under direct fluoroscopic visualization.? The needle was inserted at level L4 on the right side. Needle tip position was confirmed with lateral fluoroscopic position.? Motor stimulation was carried out at 2 Hz up to 5 volts with the absence of extremity activity.? This was repeated at level L5, S1 on right side.?? Sensory stimulation was carried out.? Concordant pain was realized at the above- mentioned sites.? Then radiofrequency lesioning was carried out times 90 seconds at 80 degrees times 2 lesions at each level.? The radiofrequency probe was removed prior to cannula removal.? The above-mentioned injectate was placed in 1 mL increments.? The needle was removed. The same procedure, with the same steps, was then completed on the left side at the same levels. Insertion sites were covered.? The patient was taken to the postoperative recovery area and monitored for an appropriate length of time before being found suitable for discharge in the company of a responsible adult. Anesthesia: Local Surgeon: Bouchra Angel Pathology: none sent Condition: stable Disposition: no change
[2023-11-10] MEDS: BUPIVACAINE HCL 0.25% PF 25 MG/10 ML VIAL 4 ML INJ (11:12)
[2023-11-10] MEDS: LIDOCAINE HCL 2% 400 MG/20 ML MDV 15 ML INJ (11:13)
[2023-11-10] MEDS: TRIAMCINOLONE ACETONIDE 40 MG/ML VIAL 80 MG INJ (11:13)
== END 2023-11-10 11:17 | disposition home or self-care (01) ==
PROVIDERS: PCP Internal Medicine; Visit Provider Anesthesiology
DX: M47.816 Spondylosis without myelopathy or radiculopathy, lumbar region (principal)
CPT/HCPCS: 64635; 64636

== ENCOUNTER 2023-12-11 07:52 | Outpatient (OUT) | payer OTHER, MEDICARE, SELFPAY ==
--- OUTSIDE RECORDS SUMMARY | 2023-12-11 07:55 | XMS_ITS | CCD ---
Author Name Unknown Address [facility] [place] [address] Organization [facility] Care Team Providers Care Eligibility Clerk Name Role Phone CLAY TAVERAS Attending CLAY Rao Consulting Unavailable CLAY TAVERAS Primary Care Unavailable CLAY TAVERAS Admitting Unavailable Gidanisitis , Bouchra Giordano Attending Unavailable Gieditis , Andjoseph Giordano Attending Unavailable Giedbety RIVERA, Andjoseph Giordano Attending Unavailable Jeanne RIVERA, Andjoseph Giordano Attending Unavailable Problems Problem Classification Problem Date Documented Da te Episodic/Chronic Headache; including migraine (1 source) Headache; including migraine; Translations: [HEADACHE UNSPECIFIED] Onset: 12-28-2020 Other lower respiratory disease (1 source) Cough; Translations: [COUGH] Onset: 12-28-2020 Episodic Unclassified (4 sources) CONTACT W/AND (SUSP) EXPOS COVID-19; Translations: [CONTACT W/AND (SUSP) EXPOS COVID-19] Onset: 12-21-2020 Results Test Name Value Interpretation Reference Range Facil ity Coding Summary.on 04-15-2021 Coding Summary. CD:[id number] G h0bWw+PGhlYWQ+HZ4LQUC aO45qcWZsaZ4OL7gNAN2W BIYMVKMDDY1URI0gaER9Z YnkZ0PtbuMr VdaxfGSaAC25CSk7BGK9v XxpAKlgfM4nxLPhK3t6Wt BrSP54fL43YMhyUCNyTzA 3LjZpbjsgbWFy F9ejSfPkvSBcWaa+PHRhY mxlIHdpZHRoPScxMDAlJy XydMcyRS1eFo1sVFMdYTH vbGxhcHNlOiBj p5fqFRLaQXflVJ0vyApgG 1IurUZ4JVFhc1u4Va31gB I+LGOfYGO9eWjqLSify12 4AwJaj0bsZOJ4 lTOcQQssOXW1K87if2F0M ATwGYPbPUF7yFL7pX7veR esdozsP5EmbRZqSsD6PZP 3pURquM6epNou gxkdvU0xBar+J12YUT5WU CIBMU7MRrz0X3KmUykbaS I+UW12USRvMN43oCGitTC pl4cspNu2IcGm VSOpSGL1nPcjVZrdi0GpE TNgW16jiKCnb3E9XOHnbF ifzJGtApOwdMS9vZ3rHQf qpmaba1prrsca Wporp4zzow94aY23Y60tN JabLPAxUGZ9APUaOWPqjX fwqg4nvG3hHx9+YNnsr0x qm0cdiNw5NoOl WIOkewAvbTvxKLM1n1CoH w83C8VndOynq5KhViu4pv 38nYCtb1T0qME0QMkwBKQ rwG3iAQoyOyO9 HEKdNeKueL71uJIdEVxoR p0ogQumoSndZA2aNXLuyv ilMQFqnJ9iXULzcQGtwCq cPO4rJPTnazpw p046QnDtUCX0EDZfqPStH 6ZjsA5nVsHdJUZoNXQrQ4 NnoMAxGJtfJ956MStmQqV 8DEGuwjMcB5Cq AFWgfKxpEyH8c6C1Pz6Mq 8QtrfvhRWQ0UGayQAL9Ja ZoOqNeJtP4A2WwHyf4IHL paDwaMQ5iI3Lm KBOnmilcwilwiDJ1PKFoI CJzkB61aDTxODmoFo4df5 D6s740CBWaDPHavR54Jb0 udDogMTBwdCBU pO1sjcrpu5vuqkmnYyDuN IUkYZd1SZa4BUNusQzpUg RbATF6ZmM7GTF4eFNdyL6 umDdqpqowxT6m Oyc+J65naV7yAMA8ZQK2a lkpPROpliGtAX10BU58Z4 RyPjwvdGFibGU+PGRpdiB nqFvhLA5fIjWf e7zub6IcJHvzO1VvSUOjM FrgPjo7MKUcWZF8oBO2lP 7aBJTcBZtlk8D0aFW0V3N mpaYbgn6da7lk TOKvSTitN22rbTJch9E3L WJgsCJ6JNBduTwiZxAfkL 93Oyc+CNOfpKphi7SeHhx mb7ssn5fbqAn2 TvWcDSSjsbGttNykTGY0v 3XoSz50I95rQVahXHImXZ FtOSIiMOWcsKlzum7aoA5 wIi8+PGNvbCB3 hWQ8cI9iWNCeOdJ3QDcbO 735OuLtvABkAnlfu9axl1 awsEt9IdWeBAIfggIcoSa cATZ0q6OvUy78 G98nFVhhQJEyBSPvVVRkB AQmwJiuaj1fhF1hKr7+PC 9qh0xxrm21jK26lYB+PHR tCSQ0dVvbPKnr BOTixV6jOIvtKpQ8CYMkW iFyyD89xVUjYQzzXp3lwB rdiQnlZE2mGZLuyekvd66 0PbXgi3twIQGv kSCyOChbXMD4K95dw1A6I YVmWKOhWAC4pQG2mP8fmK lnbjogbGVmdDsgdmVydGl vJVrhCWvrN642 IHRvcDsnPlBhdGllbnQgT qAeSSr7Y3NmBeg6UOUlaI ubTO3ybYNiESzeDf2tuMh nxNtaCF5xQLEj ppqgn816XxNno8bdKGAnr XZyYPtbTUV9K20eq0K2SP ZaYPPsYJB7tBM1oH2szFv nbjogbGVmdDsg zxMggGzvAYwvOGcoG172Q HRvcDsnPkJpcnRoIERhdG Q0OY15UB58lBIkh9I5kND 9W0JhYYFrxdob egwrvLZ1ZOMsXEGbaN94I h2cgDmgYr4nCOGiMQS0GS WwaRRpX3IjwC4dCkHjZSL vXLOkX2QkqLKb OAycB222HZhoUdU3TXOuq uJwA1AiOMZhuGqsPoI8l2 G5Do4PA8A0BE65SO12dFX mf3D8mHF2J6Rq AQQqfnkyvjntxVK5XPZmL JPabD49Yx4coVncWq4qFB VgEYD9NIWcoTNkY9WluP2 yOiAjMDAwMDAw I4MlySYlDOvlD076ZSvjC vI2SGKazpZsZ3LyJGNrwW hmCqT3a9E9Th1DKFf9ZO9 0ZG92pREga5V6 vWF0L5WqKGTndzsqteqpb GS6JCUbDZPjtZ30Bq6thD fqTe9iVGRdDHC1GNUcdSR kN4AvfB4gPwSg RVAoJQNkJ0YscCUvMErlV 867PRruMuU5ISEmovGzX3 XwVDBdpIbdAeX5s8L4Xq9 PVWJmTK42ETU9 nXY5MD96YY54P3FcWdwgw GFibGU+PHRhYmxlIHdpZH RoPScxMDAlJyBzdHlsZT0 yAp0qFERmSQSs tTvyaUEoCcPaj1sfQSRiY PlkEG7cdVuzY4RcqHM4ON Xaf8z1Kv00B34rD9HmePV +RPCipEC3oMQ5 wH7dOgRfHwT9KHguD478P rPqvHDbAhldd4jwc1lptQ d5UdQ5KPGiooGpzTerXOG 7y7UsTe59U45n IHdpZHRoPSIxNSUiIHZhb Nqxka1fgJ8vJz6+PGNvbC X8kBK3zM4yAjVhRyV6AHy nM870LuCgpSNu Wqzmy8xzg2aosSu5OcIpH YOotvDiaCcoNJZ7n9JcHx 72P4NkjLspv8JoAbc8gw6 0aZAtt1L3eSR3 N4OqKDCjkprktRHcpBszF T5yNOMqhdcfLBNvgC3zPJ UtJ4h1DhPuWqI9PEttA5Q evfZ7AADssGUy NSysUGO0J52pp4I7WVYqN LBvDBS2gMR1pO1ocUhjxe ogbGVmdDsgdmVydGljYWw iBQjnN056KOXj wCkdFSOizU2rXBGeoJKoa IjuPR6xJXGppiucYuhIVY YRMTNOVHAQHJOFDO49DT3 8pNBov4A9eUQ2 V0HhPXQpsgnwagtpnZH8O MNwLABxqV04zCQgCQpjYu 8kh2F8i918WCCgMCFlcG5 1Gd4tqKvfJARk xQNSsZ3fxorgd2awzqpjG pBwWLPyDKk2VPd5KKKepF inMdDkUQQ5JbA1BBT5jCS gtA2fuXaaqtqp sR5zHcq+ZLMuTxZmPYu6G TwvdGQ+VJLpRRT0mJadFN wyVNHhzP5yEPFcB8z9UgV lUpX0UTemX5Qi CLVerfcsGs76jC9nGbQvK wN3ZBokB6PsjoT3IKUkxM JrNYvzOMS3P89pe0R1AYV aAVFiAIZ1gPD3 zZ4ngVinaoskmYHijSyqk jQetVjgKQjcSPrlA328VB MyuVemZqA2TIcnVPNfAJ3 2CH34pESko5E4 rAA6Y8BdXIVorosvzjako RO1GGCxQPEsaU18nBUrBZ xnZw4mn1D4h866DDUiUHG jzF03Yz8zrJzf IDNsuYVQrQ0gldnbz4ltk xliWwFpEHSkTHg8TFc5JI VlkOulNnVhJUU7XoH7KLA 9aJPrtC4trXgk nbbdbY4tVba+RmVtYWxlP J36IR60vHRpg7D3dHY2V1 IcOTPoeinhnisklGE7ZEN tPNMirV11nKCi FPrsQi7sd2K5h683IIKbW WKjfV48Na6uuDbyHMMgdS MVhU0dtjdvo4doonplBeD hQUFnDNn6YXc3 JHXhsBvvDmPwBUR8OiR4M QT5dRYpwL4keOottfnlzN 9wOyc+GS9nsgorerL1NI4 5SX81I9FuPssb dGFibGU+PHRhYmxlIHdpZ HRoPScxMDAlJyBzdHlsZT 5zMb5zDAIwINJzkZgjvMS vCiJaf4tbLUQh PYpwAZ2qpTooT4NbcJF8U MZze9b6Kz24N82kD8WhdZ A+CEJxiUE6vNY9iI3rMcQ nLwS3BHouY476 NdJqrUYxHioxu6cvr0edi Nr0XtVqFZIvxlBsmJyrZQ P5s4BzTd85E28vRYncPJL oPSIyMCUiIHZh eOyglj4mqE5hNo1+PGNvb UB0bFB7bQ1aQwCpLmA4SO nqH463LzFsmFLeXqduT57 hL9RkoRP+PHRy Ebt9EAQyjJvrLP0sxOTgO HxoWy1eUXJ9AmArLeZeBR giQ8AkVQZctflfohlaaBX 7PFDhFOLloT64 Lg1zrRlzTw9iFDVdNMI1P ZEejQFlD4AjzS6qFmDiGZ YuTNGpC1XjaTHxKPexT29 0MUhxJtO5KWSh qaUeS3NcUCAujNmzOgP7p 3V3Nz8ZnHqusKJlMF4nOo CiTRs2W9XeEpg7WNLrhFj uJO8ajYPkTNwo Tc2luNyiiLyhBS0bQWYuu rrlq340IkDah4pkUARnmH WkSXjdMFO2S54mm2X0EMV oLRDiEIS9rAZ2 sI6btUesydfwxXAjsWrrc jFhfVwfMVwjQIlcM268NI PepLaxMaKILhh3L5QdGre 3PXZswCcmES6p tVTiQPnfRi2rlYsduScpE U0wZKHfxuzbk851MjOxf9 znIQQdqJVqCPniBPJ9A40 fi0E5DJUtUINg KTF2xGS4iC7gpDjiyvoiu GVmdDsgdmVydGljYWwtYW juC962BXEtcMokIy4LHed 1U7AnVjy1JARh iHfpFQ8abQIdJXdlZv1fn XvbnQmaHY0dZUPpfhbxn4 36TnOye3xrUFKdkVNfLWd pHIT9O99za9V8 WJQpFJUaJBO0kOF8tQ5aa GlnbjogbGVmdDsgdmVydG hjMRxjCWmhN967QHAdxWl nPlBheWVyOjwv dGQ+CE01mo01B6FxExqqD jj9VNCbNTZ4zIY9yP0hER WtCYycx1I6dAN1K1DfqkS fob9cg0caDWZo ZTog (more content not included)... Normal [facility] ED Note-Physicianon 04-06-20 ED Note-Physician Basic Information Time Seen: Alexandr Eduardo PA-C 04/05/2021 12:59 Chief Complaint Cat bites and scratch to left hand, left leg and rigth leg. Dogs were trying to get a stray cat and I tried to help it and it got me per pt History of Present Illness 65-year-old female presents emergency department with a chief complaint of cat bite to her left thumb, and multiple cat scratches to her bilateral lower legs. This occurred prior to presentation. States that it is a neighborhood cat, unsure who actually owns it. She states that the cat, Kate , is at her house quite frequently, and that they feed the cat. 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 She states they are unsure whether the cat is up-to-date on its immunizations. She states that her dog is one after the cat, and she attempted to seed cone picker the cat when the cat turned and bit her left thumb and scratched her on her legs. She is unsure of her last tetanus immunization booster. Review of Systems A 10 point review of systems is negative except as noted above. Medical and Surgical History: Reviewed and noted Social history: Lives at home Tobacco: Denies Physical Exam Vitals & Measurements T: 36.9 ?C (Oral) HR: 90(Peripheral) RR: 18 BP: 154/88 SpO2: 97% WT: 53.5 kg WT: 53.5 kg General: Alert and oriented, No acute distress, Comfortable in bed. Eye: Pupils are equal, round and reactive to light, Extraocular movements are intact. HENT: Normocephalic. Neck: Supple, Non-tender, No jugular venous distention. Respiratory: Respirations are non-labored, Symmetrical chest wall expansion, No chest wall tenderness, no wheezing rhonchi rales or rubs noted.. Cardiovascular: Normal rate, Regular rhythm, Good pulses equal in all extremities. Gastrointestinal: Soft, Non-tender, Non-distended, Normal bowel sounds. Musculoskeletal: Tenderness with flexion and extension of the left thumb but range of motion is complete and full. Normal range of motion, Normal strength. Neurologic: Alert, Oriented, Normal sensory, Normal motor function. Cognition and Speech: Oriented, Speech clear and coherent. Psychiatric: Cooperative, Appropriate mood & affect. Integumentary: Warm, Dry, [place]. Puncture wounds noted to the left thumb proximal phalanx, bleeding is controlled. Multiple superficial scratches appreciated to the distal legs anteriorly with no active bleeding. Medical Decision Making X-rays of the left thumb shows no fracture no dislocation no radiopaque foreign body, I did discuss rabies prophylaxis, however the patient refused this at this time. Her tetanus was updated, she will be started on Augmentin, she was placed in a thumb spica splint. Wounds were cleansed, and dressed, she is to return should new problems develop or other problems arise. She is to follow-up with her PCP in the next 2 to 3 days for recheck she understood and agreed with the plan. Assessment/Plan 1. Cat bite of left hand (S61.452A: Open bite of left hand, initial encounter) 2. Cat scratch of lower leg (S80.699A: Abrasion, unspecified lower leg, initial encounter) Orders: Thumb Spica Splint Application Wound Care Routine XR Finger(s) Min 2 Views Left Medications Administered Given bacitracin/neomycin/p olymyxin B Top Oint, 1 linda, Topical bacitracin/neomycin/p olymyxin B Top Oint, 1 linda, Topical tetanus/diphtheria/pe rtussis, acel (Tdap) 5 units-2 units-15.5 mcg/0.5 mL IM Susp 0.5 mL, 0.5 mL, IntraMuscular diphtheria/pertussis, acel/tetanus adult, IntraMuscular Disposition Plan Patient Discharge Condition Improved Discharge Disposition Discharge home Discharge Prescription List Prescriptions Augmentin 875 mg-125 mg Tab, 1 tab(s), Oral, BID mupirocin Top 2% Oint, 1 linda, Topical, TID Follow-up With When Contact Information CLAY TAVERAS In 3 days 04/08/2021 EDT [address] [place] [address]- Business (1) Additional Instructions: Wear the splint for support, keep the area clean dry and covered, use the mupirocin ointment externally. Begin taking the Augmentin as directed. Tylenol Motrin for pain and swelling, have the wounds rechecked in the next 2 days. Return should new problems develop or other problems arise. Patient Education Animal Bite, Adult Problem List/Past Medical History Ongoing No qualifying data Historical No qualifying data Medications Inpatient bacitracin/neomycin/p olymyxin B Top Oint, 1 linda, Topical, TID Home Augmentin 875 mg-125 mg Tab, 1 tab(s), Oral, BID mupirocin Top 2% Oint, 1 linda, Topical, TID Allergies No Known Allergies Social History Alcohol Substance Abuse Tobacco Lab Results No qualifying data available. Diagnostic Results XR Finger(s) Min 2 Views Left * Preliminary * 04/05/21 14:12:36 NEGATIVE: 3 view left thumb, no fracture no dislocation, no radiopaque foreign body noted. Read By: Alexandr Eduardo PA-C [facility] Comment on above: Result Comment: Elec tronically Signed By: Alexandr Eduardo PA-C\.br\Date and Time Signed: 04/05/21 21:31 EDT\.br\Electronically Co-Signed By: Abdoulaye Watson M.D.\.br\Date and Time Co-Signed: 04/06/21 11:28 EDT Animal Bite Investigationon 04-05-2021 Animal Bite Investigation [id number]# 1.00CD:127 [facility] Consent for Treatmenton 03-24 Consent for Treatment [id number] .00CD:127 [facility] Discharge Instructionson Discharge Instructions [id number] #1.00CD:127 [facility] ED Clinical Summaryon 2020 ED Clinical Summary [place] [id number] ED Clinical Summary Person Information Name: MIGUEL GONZALEZ L[facility]da/[facility] Age: 65 Years : 1955 Sex: Female Language: Botswanan PCP: CLAY TAVERAS MD Marital Status: Visit Id: Visit Reason: Cat bite; CAT BITE Speciality: Acuity: 4 Enc Type: Emergency Med Service: Emergency Arrival: 04/05/2021 12:55:11 Discharge: 04/05/2021 14:45:00 LOS: 000 01:50 Checkin: 04/05/2021 12:55:11 Checkout: 04/05/2021 14:45:00 Dispo Type: Home (Routine DC) EVENTS: Event Name Event Status Request Date/Time Start Date/Time Complete Date/Time Arrive Complete 04/05/2021 12:55:11 04/05/2021 12:55:11 04/05/2021 12:55:11 Document Home Meds Request 04/05/2021 12:55:11 Triage Complete 04/05/2021 12:55:11 04/05/2021 13:15:04 04/05/2021 13:15:04 Dr Exam Complete 04/05/2021 12:59:08 04/05/2021 12:59:08 04/05/2021 12:59:08 Registration Complete 04/05/2021 12:59:08 04/05/2021 13:08:32 04/05/2021 13:46:57 Bed Assign Complete 04/05/2021 13:08:32 04/05/2021 13:08:32 04/05/2021 13:08:32 RN Exam Complete 04/05/2021 13:08:32 04/05/2021 13:46:56 04/05/2021 13:46:56 Dr Exam Complete 04/05/2021 13:24:14 04/05/2021 13:24:14 04/05/2021 13:24:14 X-Ray Complete 04/05/2021 13:26:26 04/05/2021 13:48:35 04/05/2021 13:59:57 Patient Care Complete 04/05/2021 13:26:26 04/05/2021 13:47:17 Meds Admin Complete 04/05/2021 13:26:26 04/05/2021 13:41:25 Meds Admin Request 04/05/2021 13:30:34 Reg Complete Request 04/05/2021 13:46:57 Reg Bed Request Complete 04/05/2021 13:46:57 04/05/2021 13:46:57 04/05/2021 13:46:57 Wet Read Request 04/05/2021 13:59:57 Patient Care Complete 04/05/2021 14:03:09 04/05/2021 14:45:04 Discharge Complete 04/05/2021 14:09:43 04/05/2021 14:46:42 04/05/2021 14:46:42 Transfer Complete 04/05/2021 14:46:42 04/05/2021 14:46:42 04/05/2021 14:46:42 ADDRESS: [facility] [address] [place] [id number] PHYS DOC NOTES: MEDICAL INFORMATION: Prescriptions Given: New Medications Printed Prescriptions amoxicillin-clavulana te (Augmentin 875 mg-125 mg Tab) 1 Tablets By Mouth 2 times a day for 10 Days. Take one tab by mouth twice a day for ten days. Refills: 0. mupirocin topical (mupirocin Top 2% Oint) 1 Application Topical 3 times a day. Refills: 0. PATIENT EDUCATION INFORMATION: Instructions: Animal Bite, Adult Follow up: With: Address: When: CLAY TAVERAS [address] [place] [address] [place] [address] Business (1) In 3 days 04/08/2021 Comments: Wear the splint for support, keep the area clean dry and covered, use the mupirocin ointment externally. Begin taking the Augmentin as directed. Tylenol Motrin for pain and swelling, have the wounds rechecked in the next 2 days. Return should new problems develop or other problems arise. DIAGNOSIS: 1:Cat bite of left hand; 2:Cat scratch of lower leg Normal [facility] ED Patient Education Noteon 04-05-2021 ED Patient Education Note Infectious Disease Animal Bite, Adult Animal bites range from mild to serious. An animal bite can result in any of these injuries: ? A scratch. ? A deep, open cut. ? A puncture of the skin. ? A crush injury. ? Tearing away of the skin or a body part. ? A bone injury. A small bite from a house pet is usually less serious than a bite from a stray or wild animal, such as a raccoon, beltre, skunk, or bat. That is because stray and wild animals have a higher risk of carrying a serious infection called rabies, which can be passed to humans through a bite. What increases the risk? You are more likely to be bitten by an animal if: ? You are around unfamiliar pets. ? You disturb an animal when it is eating, sleeping, or caring for its babies. ? You are outdoors in a place where small, wild animals roam freely. What are the signs or symptoms? Common symptoms of an animal bite include: ? Pain. ? Bleeding. ? Swelling. ? Bruising. How is this diagnosed? This condition may be diagnosed based on a physical exam and medical history. Your health care provider will examine your wound and ask for details about the animal and how the bite happened. You may also have tests, such as: ? Blood tests to check for infection. ? X-rays to check for damage to bones or joints. ? Taking a fluid sample from your wound and checking it for infection (culture test). How is this treated? Treatment varies depending on the type of animal, where the bite is on your body, and your medical history. Treatment may include: ? Caring for the wound. This often includes cleaning the wound, rinsing out (flushing) the wound with saline solution, and applying a bandage (dressing). In some cases, the wound may be closed with stitches (sutures), leonie, skin glue, or adhesive strips. ? Antibiotic medicine to prevent or treat infection. This medicine may be prescribed in pill or ointment form. If the bite area becomes infected, the medicine may be given through an IV. ? A tetanus shot to prevent tetanus infection. ? Rabies treatment to prevent rabies infection. This will be done if the animal could have rabies. ? Surgery. This may be done if a bite gets infected or if there is damage that needs to be repaired. Follow these instructions at home: Wound care ? Follow instructions from your health care provider about how to take care of your wound. Make sure you: ? Wash your hands with soap and water before you change your dressing. If soap and water are not available, use hand window trimmer. ? Change your dressing as told by your health care provider. ? Leave sutures, skin glue, or adhesive strips in place. These skin closures may need to stay in place for 2 weeks or longer. If adhesive strip edges start to loosen and curl up, you may trim the loose edges. Do not remove adhesive strips completely unless your health care provider tells you to do that. ? Check your wound every day for signs of infection. Check for: ? More redness, swelling, or pain. ? More fluid or blood. ? Warmth. ? Pus or a bad smell. Medicines ? Take or apply rtbq-blk-ichhnbl and prescription medicines only as told by your health care provider. ? If you were prescribed an antibiotic, take or apply it as told by your health care provider. Do not stop using the antibiotic even if your condition improves. General instructions ? Keep the injured area raised (elevated) above the level of your heart while you are sitting or lying down, if this is possible. ? If directed, put ice on the injured area. ? Put ice in a plastic bag. ? Place a towel between your skin and the bag. ? Leave the ice on for 20 minutes, 2?3 times per day. ? Keep all follow-up visits as told by your health care provider. This is important. Contact a health care provider if: ? You have more redness, swelling, or pain around your wound. ? Your wound feels warm to the touch. ? You have a fever or chills. ? You have a general feeling of sickness (malaise). ? You feel nauseous or you vomit. ? You have pain that does not get better. Get help right away if: ? You have a red streak that leads away from your wound. ? You have non-clear fluid or more blood coming from your wound. ? There is pus or a bad smell coming from your wound. ? You have trouble moving your injured area. ? You have numbness or tingling that extends beyond the wound. Summary ? Animal bites can range from mild to serious. An animal bite can cause a scratch on the skin, a deep open cut, a puncture of the skin, a crush injury, tearing away of the skin or a body part, or a bone injury. ? Your health care provider will examine your wound and ask for details about the animal and how the bite happened. ? You may also have tests such as a blood test, X-ray, or testing of a fluid sample from your wound (culture test). ? Treatment may include wound care, antibiotic medic (more content not included)... Normal [facility] ED Patient Summaryon 021 ED Patient Summary [place] [id number] Patient Discharge Instructions Person Information Name: MIGUEL GONZALEZ Age: 65 Years Arrival Date: 04/05/2021 12:55:11 Discharge Diagnosis: 1:Cat bite of left hand; 2:Cat scratch of lower leg Primary Care Physician: CLAY TAVERAS MD Provider Information Primary Provider: Abdoulaye Watson M.D. Advanced Yeast Distiller:Alexandr Eduardo PA-C The exam and treatment you received in the Emergency Department were for an urgent problem and are not intended as complete care. It is important that you follow up with a doctor, nurse practitioner, or physician?s habilitation assistant for ongoing care. If your symptoms become worse or you do not improve as expected and you are unable to reach your usual health care provider, you should return to the Emergency Department. We are available 24 hours a day. MIGUEL GONZALEZ has been given the following list of patient education materials, prescriptions and follow-up instructions: Follow-up Instructions: With: Address: When: CLAY TAVERAS [address] [place] [id number] Business (1) In 3 days 04/08/2021 Comments: Wear the splint for support, keep the area clean dry and covered, use the mupirocin ointment externally. Begin taking the Augmentin as directed. Tylenol Motrin for pain and swelling, have the wounds rechecked in the next 2 days. Return should new problems develop or other problems arise. In the event that this physician does not participate in your insurance network, please consult with your insurance company to find a nearby participating provider. Patient Education Materials: Animal Bite, Adult A MESSAGE TO ALL PATIENTS REGARDING OPIOIDS PRESCRIPTION OPIOIDS: WHAT YOU NEED TO KNOW Prescription opioids can be used to help relieve vwvgvpmh-po-jmaqph pain and are often prescribed following a surgery or injury, or for certain health conditions. These medications can be an important part of the treatment but also come with serious risks. It is important to work with your healthcare provider to make sure you are getting the safest, most effective care. WHAT ARE THE RISKS AND SIDE EFFECTS OF OPIOID USE? Prescription opioids carry serious risks of addiction and overdose, especially with prolonged use. An opioid overdose, often marked by slowed breathing, can cause sudden . The use of prescription opioids can have a number of side effects as well, even when taken as directed: ? Tolerance?meaning you might need to take more of the medication for the same pain relief ? Physical dependence?meaning you have symptoms of withdrawal when a medication is stopped ? Increased sensitivity to pain ? Constipation ? Nausea, vomiting, and dry mouth ? Sleepiness and dizziness ? Confusion ? Depression ? Low levels of testosterone that can result in lower sex drive, energy, and strength ? Itching and sweating RISKS ARE GREATER WITH: ? History of drug misuse, substance use disorder, or overdose ? Mental health conditions (such as depression or anxiety) ? Sleep apnea ? Older age (65 years and older) ? Avoid alcohol while taking prescription opioids. Also, unless specifically advised by your health care provider, medications to avoid include: ? Benzodiazepines (such as Xanax or Valium) ? Muscle relaxants (such as Soma or Flexeril) ? Hypnotics (such as Ambien or Lunesta) ? Other prescription opioids KNOW YOUR OPTIONS Talk to your health care provider about ways to manage your pain that don?t involve prescription opioids. Some of these options may actually work better and have fewer risks and side effects. Options may include: ? Pain relievers such as acetaminophen, ibuprofen, and naproxen ? Some medication that are also used for depression or seizures ? Physical therapy and exercise ? Cognitive behavioral therapy, a psychological, goal-directed approach, in which patients learn how to modify physical, behavioral, and emotional triggers of pain and stress. IF YOU ARE PRESCRIBED OPIOIDS FOR PAIN: ? Never take opioids in greater amounts or more often than prescribed. ? Follow up with your primary health care provider. o Work together to create a plan on how to manage your pain. o Talk about ways to help manage your pain that don?t involve prescription opioids. o Talk about any and all concerns and side effects. ? Help prevent misuse and abuse o Never sell or share prescription opioids. o Never use another person?s prescription opioids. ? Store prescription opioids in a secure place and out of reach of others (this may include visitors, children, friends, and family). ? Safely dispose of unused prescription opioids: Find your community drug take-back program or your pharmacy mail-back program, or flush them down the toilet, following guidance from the Food and Drug (more content not included)... [facility] Vaccinationson 04-05-2021 Vaccinations [phone] [id number] #1.00CD:127 Normal [facility] XR Finger(s) Min 2 Views [place] 04-05-2021 XR Finger(s) Min 2 Views Left Exam Date/Time: 04/05/2021 13:59 EDT Reason for Exam: Cat bite;Other (please specify) Report IMPRESSION: NO EVIDENCE OF FRACTURE. CLINICAL HISTORY: Cat bite. COMMENT: 3 views. There are mild hypertrophic arthritic changes at the first carpometacarpal joint and there are minimal hypertrophic changes at the MCP and IP joints. The bones of the left thumb are otherwise unremarkable, without evidence of fracture or dislocation. No radiopaque foreign body is evident. FINAL REPORT Dictated: 04/05/2021 4:05 pm Amrit Hernandez M.D. Signed (Electronic Signature): 04/05/2021 4:05 pm Signed by: Amrit Hernandez M.D. Transcribed by: MAYELIN Technologist: HARRY Neal [facility] Covid-19 PCR (CVDTB)on 11-25 Covid-19 PCR NOT DETECTED Normal NOT DETECTED [facility] Comment on above: Result Comment: This test is not yet approved or cleared by the [place] FDA. When there are no FDA-approved or cleared tests available, and other criteria are met, FDA can make tests available under an emergency access mechanism called an Emergency Use Authorization (EUA). The EUA for this test is supported by the [place] of Health and Human Service's (HHS's) declaration that circumstances exist to justify the emergency use of in vitro diagnostics for the detection and/or diagnosis of the virus that causes COVID-19. This EUA will remain in effect (meaning this test can be used) for the duration of the COVID-19 declaration justifying emergency of IVDs, unless it is terminated or revoked by FDA (after which the test may no longer be used). Performed By: #### C [facility], [facility] #### [facility] [address] [place] [address] Adore Hale EUA Statement SEE BELOW Normal [facility] Comment on above: Result Comment: This test is not yet approved or cleared by the [place] FDA. When there are no FDA-approved or cleared tests available, and other criteria are met, FDA can make tests available under an emergency access mechanism called an Emergency Use Authorization (EUA). The EUA for this test is supported by the [place] of Health and Human Service?s (HHS?s) declaration that circumstances exist to justify the emergency use of in vitro diagnostics for the detection and/or diagnosis of the virus that causes COVID-19. This EUA will remain in effect (meaning this test can be used) for the duration of the COVID-19 declaration justifying emergency of IVDs, unless it is terminated or revoked by FDA (after which the test may no longer be used). When diagnostic testing is negative, the possibility of a false negative should be considered in the context of a patients recent exposures and the presence of clinical signs and symptoms consistent with SARS-CoV-2. Performed By: #### C [facility] #### [facility] [address] [place] [address] Adore Alexia Encounters Encounter Date Encounter Type Care Provider Facility Start: 11-10-2023 End: 11-11-2023 ambulatory Andjoseph Simmonsitis Facility:[facility] Start: 09-29-2023 End: 09-30-2023 ambulatory Andjoseph Angel MD Facility:[facility] Start: 09-01-2023 End: 09-02-2023 ambulatory Andjoseph Angel MD Facility:[facility] Start: 08-04-2023 End: 08-05-2023 ambulatory Andjospeh Angel MD Facility:[facility] Start: 12-21-2020 End: 12-21-2020 Patient encounter procedure CLAY TAVERAS Facility:[facility] Payers Date Payer Category Payer Medicare 2022 Unknown 1959 Unknown [id number] 1955 Unknown [id number] 1955 Unknown [id number] 2.16. [id number] 1955 Unknown [id number] 2.16. [id number] 1955 Unknown [id number] 2.16. [id number] 1955 Unknown [id number] 2.16. [id number] Summary Purpose Family History No Family History Records FoundNo Family History Records FoundNo Family History Records Found Advance Directives No Advanced Directives Records FoundNo Advanced Directives Records FoundNo Advanced Directives Records Found Additional Source Comments INFORMATION SOURCE (unrecogn ized section and content) DATE CREATED AUTHOR 12/29/2020 Omkar Wen [facility] DATE CREATED AUTHOR AUTHOR'S ORGANIZ ATION 07/09/2021 [facility] DATE CREATED AUTHOR AUTHOR'S ORGANIZ ATION 11/14/2023 [facility] FOR RECORDS PERTAINING TO PATIENTS WHO ARE OR HAVE BEEN ENROLLED IN A CHEMICAL DEPENDENCY/SUBSTANCEABUSE PROGRAM, SOME INFORMATION MAY BE OMITTED. This clinical summary was aggregated from multiple sources. Caution should be exercised in using it in the provision of clinical care. This summary normalizes information from multiple sources, and as a consequence, information in this document may materially change the coding, format and clinical context of patient data. In addition, data may be omitted in some cases. CLINICAL DECISIONS SHOULD BE BASED ON THE PRIMARY CLINICAL RECORDS. [facility]. provides no warranty or guarantee of the accuracy or completeness of information in this document.
--- NOTE | 2023-12-11 08:01 | P.CN_ITS ---
Consult Note: HPI Data of Consult Patient: known to practice within the last 3 years Consult date: 10/09/23 Requesting Physician: Tierney Kohli NP Primary Care Provider: CLAY TAVERAS Consult Narrative Reason for consult: f/u Narrative: Patricia Gonzalez a pleasant 68 year old female presents for evaluation and management of chronic low back pain. Recently underwent bilateral L4-5 L5-S1 facet medial branch thermal RFA with >75% improvement ongoing. Today pain 1/10 in thoracic spine 0/10 in lumbar spine, at its worst lumbar pain 1-2/10 and thoracic pain 5-6 /10. Since RFA notices improvement in ability to complete housework and tolerate physical activity. Patient noticing pain in middle back with myofascial pain. cc:: CC: Tierney Kohli NP Review of Systems ROS Status of ROS 10 or more systems reviewed and unremark able except as noted in history and below Musculoskeletal Reports: back pain PFSH PFSH Medical History Acid reflux ?K21.9 - Gastro-esophageal reflux disease without esophagitis (ICD-10) High cholesterol ?E78.00 - Pure hypercholesterolemia, unspecified (ICD-10) Hypertension ?I10 - Essential (primary) hypertension (ICD-10) Low back pain ?M54.50 - Low back pain, unspecified (ICD-10) Osteoarthritis ?M19.90 - Unspecified osteoarthritis, unspecified site (ICD-10) Surgical History History of hysterectomy ?Z90.710 - Acquired absence of both cervix and uterus (ICD-10) History of appendectomy ?Z90.49 - Acquired absence of other specified parts of digestive tract (ICD- 10) Social History Smoking status: Former smoker Meds Home Medications and Allergies Home Medications Medication Instructions Recorded Confirmed Type amlodipine 2.5 mg tablet 2.5 mg PO DAILY 08/04/23 11/10/23 History aspirin 81 mg tablet,delayed 81 mg PO DAILY 08/04/23 11/10/23 History release (Adult Aspirin Regimen) diphenhydramine HCl 50 mg capsule 50 mg PO DAILY PRN sleep 08/04/23 11/10/23 History (Nightime Sleep) ginkgo biloba 40 mg tablet 120 mg PO DAILY 08/04/23 11/10/23 History magnesium 250 mg tablet 500 mg PO DAILY 08/04/23 11/10/23 History meloxicam 15 mg tablet 15 mg PO DAILY 08/04/23 11/10/23 History xusxgmpe-wfp-oucc-FA-Ca carb-vit K 1 tab PO DAILY 08/04/23 11/10/23 History 18 mg iron-400 mcg-500 mg tablet (One-A-Day Womens Formula) omega 7-kod-wtj-fish oil 1,000 mg 1 cap PO BID 08/04/23 11/10/23 History (120 mg-180 mg) capsule (Fish Oil) omeprazole 40 mg capsule,delayed 40 mg PO DAILY 08/04/23 11/10/23 History release rosuvastatin 10 mg tablet (Crestor) 10 mg PO DAILY 08/04/23 11/10/23 History turmeric 400 mg capsule 400 mg PO BID 08/04/23 11/10/23 History vitamin B complex (Complex B-100 1 tab PO DAILY 08/04/23 11/10/23 History tablet,extended release) zinc 50 mg capsule 50 mg PO DAILY 08/04/23 11/10/23 History methocarbamol 750 mg tablet 750 mg PO Q6H PRN pain #30 tabs 11/04/23 11/10/23 Rx Allergies Allergy/AdvReac Type Severity Reaction Status Date / Time No Known Drug Allergies Allergy Verified 11/10/23 10:22 Exam Constitutional Documenting provider has reviewed patient's vital signs: yes Common normals: no apparent distress, oriented x3, healthy appearing, alert and well nourished General appearance: cooperative [facility] Common normals: normocephalic, hearing grossly normal bilaterally and moist oral mucous membranes Head and scalp: normocephalic Eye Common normals: PERRL Pupil: PERRL Neck & C-Spine Common normals: full ROM General: normal visual inspection Chest Common normals: inspection of chest normal Respiratory Common normals: normal respiratory effort, no retractions and no use of accessory muscles Back & Pelvis Common normals: straight leg raise negative bilaterally Thoracic spine/upper back: pain with ROM and paraspinal muscle tenderness Lumbar spine/lower back: lumbar ROM normal Sacroiliac joints: SI joints normal Other: bilateral facet loading negative axial mid back pain no radiculopathy Extremity Common normals: normal to inspection and full ROM Neuro Common normals: oriented x3, CN's II-XII intact bilaterally, moves all extremities, no focal motor deficits, no sensory deficits noted and deep tendon reflexes 2+ bilaterally Sensorium/orientation: alert Motor exam: strength 5/5 throughout and no movement abnormalities noted Psych Common normals: mental status grossly normal, thought process normal, cooperative, affect normal, speech normal and activity/motor behavior normal Speech: normal speech Thought process: normal thought process Results Additional Findings Additional findings: I have checked an [place]AR[place] report on this patient today and there are no aberrancies noted in the prescribing history.?? A drug screen was completed and reviewed within the last year, and if there has not been a drug screen completed we ordered one today to monitor higher risk, state monitored pain medication use. As part of providing excellent, safe, comprehensive care, the following was completed at our patient's visit: 1. A medication reconciliation and review to ensure accurate knowledge of current/active medications, including asking our patients to inform us about any fmoe-awk-gvomshn medications or herbal remedies/nutritional supplements/alternative remedies. 2. A review to specifically ensure our patients have had annual screening for: elevated body mass index (BMI), tobacco use, screening for depression, and screening for unhealthy alcohol use. When screening is concerning, patients are provided with education and the specific recommendation to discuss the concerning health issue and treatment options with their primary care provider. Assessment and Plan Assessment and Plan (1) Lumbar spondylosis: (2) Thoracic spondylosis: (3) Myofascial pain: (4) Low back pain: Plan thoracic xray with flexion and extension continue HEP as tolerated start tizanidine 2mg tabs 1-2 tabs BID PRN for myofascial pain f/u 3 months, sooner if needed
== END 2023-12-11 07:53 | disposition home or self-care (01) ==
LOC: PM 07:52
PROVIDERS: PCP Internal Medicine; Visit Provider Nurse Practitioner
DX: M47.816 Spondylosis without myelopathy or radiculopathy, lumbar region (principal); M47.814 Spondylosis without myelopathy or radiculopathy, thoracic region; M79.18 Myalgia, other site; M54.50 Low back pain, unspecified
CPT/HCPCS: G0463

== ENCOUNTER 2023-12-26 09:57 | Outpatient (OUT) | payer OTHER, MEDICARE, SELFPAY ==
--- NOTE | 2023-12-26 10:07 | XR_ITS ---
The [address] [address] Patient Name: MIGUEL OSBORN MRN: [id number] date: 1955 Sex: F Assigned Patient Location: [facility] Current Patient Location: [facility] Accession/Order Number: [id number] Exam Date: 12/26/2023 10:18 Report Date: 12/26/2023 11:01 At the request of: ARLINE GIORDAON Procedure: XR thoracic spine 3V EXAMINATION: XR thoracic spine 3V HISTORY: low/mid back pain , chronic COMPARISON: No relevant comparison available. FINDINGS: BONES: Moderate right convex curvature of mid thoracic spine. No fracture, spondylolisthesis, bone lesion. DISC SPACES: Multilevel mild degenerative disc disease. PARASPINOUS: Negative. No paraspinous abnormality is seen. OTHER: Negative. XR/XR thoracic spine 3V IMPRESSION: 1. Moderate dextroscoliosis of mid thoracic spine which may contribute patient's symptoms. 2. Multilevel mild degenerative disc disease. 3. No acute bone abnormality. Electronically authenticated by: JAMAL DOHERTY Date: 12/26/2023 11:01
== END 2023-12-26 09:58 | disposition home or self-care (01) ==
LOC: RAD 10:02
PROVIDERS: PCP Internal Medicine; Visit Provider Nurse Practitioner
DX: M54.50 Low back pain, unspecified (principal); M54.6 Pain in thoracic spine
CPT/HCPCS: 72072

== ENCOUNTER 2024-12-06 09:37 | Outpatient (RCR) | payer OTHER, MEDICARE, SELFPAY | END 2025-01-15 08:23 | disposition home or self-care (01) | LOC: PT 09:37 | PROVIDERS: PCP Internal Medicine; Visit Provider Personal Emergency Response Attendant | DX: M25.511 Pain in right shoulder (principal); Z98.890 Other specified postprocedural states | CPT/HCPCS: 97110; 97140; 97161 ==

== ENCOUNTER 2025-04-13 07:23 | Outpatient (OUT) | payer OTHER, MEDICARE, SELFPAY ==
--- OUTSIDE RECORDS SUMMARY | 2025-04-13 07:28 | XMS_ITS | CCD ---
Author Organization [facility] Care Team Providers Care Configuration Developer Name Role Phone BLU KOTHARI Attending BLU Champagne Consulting BLU Champagne Primary Care Unavailable BLU KOTHARI Admitting Unavailable Jeanne RIVERA, Bouchra Giordano Attending Unavailable Jeanne RIVERA, Bouchra Giordano Attending Unavailable Jeanne RIVERA, Bouchra Giordano Attending Kassandra Angel MD, Bouchra Giordano Attending Blu Champagne MD Primary Care Provider [phone] Blu Kothari MD Unavailable [phone] Blu Kothari II Primary Care Provider Blu Kothari II Attending Provider APRIL MERCEDES Attending Unavailable BLU KOTHARI Attending Unavailable BLU KOTHARI Attending Unavailable BLU KOTHARI Referring Unavailable BLU KOTHARI Attending Unavailable BLU KOTHARI Attending Unavailable ISABEL CATHERINE Attending Unavailable ISABEL CATHERNIE Referring Unavailable ISABEL CATHERINE Referring Unavailable JR. WAITE GEORGE C Attending UnavailALEXIA Robles Attending Unavailable JR. WAITE GEORGE C Attending Unavaila APRIL Shirley Attending Unavailable APRIL MERCEDES Attending Unavailable APRIL MERCEDES Attending Unavailable Blu Kothari Attending Blu Champagne Primary Care Unavailable Blu Kothari Admitting Unavailable Allergies Allergy Classification Reported Allergen(s) Allergy Type Date of Onset Reaction(s) Facility (20 sources) Angiotensin-conv erting enzyme inhibitor agent Drug Allergy 07-03-2023 Cough [facility] Medications Current Medications Medication Drug Class(es) Dates Sig (Normalized) Sig (Original) acetaminophen 325 mg / oxyCODONE hydrochloride 5 mg oral tablet (3 sources) Opioid Agonist Start: 11-04-2024 End: 11-09-2024 take 1 tablet by mouth every six hours for pain oxyCODONE-acetamin ophen (Percocet) 5-325 MG tablet Indications: S/P arthroscopy of right shoulder Take 1 tablet by mouth every 6 (six) hours if needed for severe pain for up to 5 days 20 tablet 11/04/2024 11/09/2024 Active Start: 10-19-2024 End: 10-24-2024 take 1 tablet by mouth every six hours for pain oxyCODONE-acetaminophen (Percocet) 5-325 MG tablet Indications: Internal derangement of right shoulder Take 1 tablet by mouth every 6 (six) hours if needed for moderate pain for up to 5 days 20 tablet 10/19/2024 10/24/2024 Active alendronic acid 70 mg oral tablet (20 sources) Bisphosphonate Start: 02-02-2024 End: 02-01-2025 alendronate (Fosamax) 70 MG tablet Indications: Age-related osteoporosis without current pathological fracture (CMS/HCC) TAKE 1 TABLET EVERY 7 DAYS IN THE MORNING WITH A FULL GLASS OF WATER, ON AN EMPTY STOMACH, AND DO NOT TAKE ANYTHING ELSE OR LIE DOWN FOR THE NEXT 30 MINUTES 4 tablet 11/29/2024 Active amLODIPine 2.5 mg oral tablet (20 sources) Dihydropyridine Calcium Channel Zachary Start: 03-21-2025 take 1 tablet by mouth once daily amLODIPine (Norvasc) 2.5 MG tablet Indications: Primary hypertension (CMS/HCC) TAKE 1 TABLET BY MOUTH EVERY DAY 30 tablet 13 03/21/2025 Active Start: 02-23-2024 take 1 tablet by jamaal th once daily amLODIPine (Norvasc) 2.5 MG tablet Indications: Primary hypertension (CMS/HCC) TAKE 1 TABLET BY MOUTH EVERY DAY FOR 100 DAYS 30 tablet 13 02/23/2024 Active take 1 tablet by jamaal th in the morning amLODIPine (Norvasc) 2.5 MG tablet Take 2.5 mg by mouth in the morning. 0 Active ascorbic acid 60 mg / beta carotene 5000 unt / copper sulfate 40 mg / dl-alpha tocopheryl acetate 30 unt / sodium selenite 0.04 mg / zinc oxide 40 mg oral tablet (20 sources) Vitamin C Multiple Vitamin (Multivitamin Adult) tablet Daily Active aspirin 81 mg delayed release oral tablet (20 sources) Platelet Aggregation Inhibitor, Nonsteroidal Anti-inflammatory Drug take 1 tablet by mouth once daily aspirin 81 MG EC tablet Take 81 mg by mouth Daily Active CALCIUM-VITAMIN D PO (20 sources) CALCIUM-VITAMIN D PO Take by mouth Daily Active CALCIUM-VITAMIN D PO Take by mouth Daily. Active CALCIUM-VITAMIN D PO Take by mouth Daily. 0 Active meloxicam 15 mg oral tablet (20 sources) Nonsteroidal Anti-inflammatory Drug Start: 01-21-2025 take 1 tablet by mouth at mealtime meloxicam (Mobic) 15 MG tablet Indications: Cervical spondylosis without myelopathy TAKE 1 TABLET BY MOUTH IN THE MORNING WITH FOOD 30 tablet 8 01/21/2025 Active Start: 12-29-2023 End: 12-29-2023 take 1 tablet by mouth at mealtime meloxicam (Mobic) 15 MG tablet Indications: Cervical spondylosis without myelopathy Take 1 tablet (15 mg) by mouth in the morning. Take with food. 100 tablet 3 12/29/2023 Active [place]-3 Fatty Acids (Fish Oi l) 1000 MG capsule delayed-release (20 sources) [place]-3 Fatty Ac ids (Fish Oil) 1000 MG capsule delayed-release Take by mouth Daily Active [place]-3 Fatty Ac ids (Fish Oil) 1000 MG capsule delayed-release Take by mouth Daily. Active [place]-3 Fatty Ac ids (Fish Oil) 1000 MG capsule delayed-release Take by mouth Daily. 0 Active omeprazole 40 mg delayed release oral capsule (20 sources) Proton Pump Inhibitor Start: 03-14-2025 take 1 capsule by mouth once daily before mealtime omeprazole (PriLOSEC) [address] capsule Indications: Gastroesophageal reflux disease without esophagitis TAKE 1 CAPSULE BY MOUTH EVERY DAY IN THE MORNING before a meal 100 capsule 3 03/14/2025 Active Start: 03-10-2024 take 1 capsule by mo uth before mealtime omeprazole (PriLOSEC) [address] capsule Indications: Gastroesophageal reflux disease without esophagitis Take 1 capsule (40 mg) by mouth in the morning. Take before meals. 100 capsule 3 03/10/2024 Active take 1 capsule by mo uth before mealtime omeprazole (PriLOSEC) [address] capsule Take 1 capsule by mouth in the morning. Take before meals. 0 Active rosuvastatin calcium 10 mg oral tablet (20 sources) HMG-CoA Reductase Inhibitor Start: 12-02-2023 take 1 tablet by mouth once daily rosuvastatin (Crestor) 10 MG tablet Indications: Primary hypertension (CMS/HCC) TAKE 1 TABLET BY MOUTH EVERY DAY 30 tablet 13 12/03/2024 Active traMADol hydrochloride 50 mg oral tablet (20 sources) Opioid Agonist Start: 12-22-2023 End: 02-18-2025 take 1 tablet by mouth every six hours for pain traMADol (Ultram) 50 MG tablet Indications: Lumbosacral spondylosis with radiculopathy Take 1 tablet (50 mg) by mouth every 6 (six) hours if needed for severe pain 60 tablet 1 02/18/2025 Active vitamin b12 1 mg oral tablet (20 sources) Vitamin B12 take 1 tablet by mouth once daily cyanocobalamin (Vitamin B-12) 1000 MCG tablet Take 1,000 mcg by mouth Daily Active zinc gluconate 50 mg oral tablet (20 sources) zinc gluconate 5 0 MG tablet Take 25 mg by mouth in the morning. Active Completed/Discontinued Medications Medication Drug Class(es) Dates Sig (Normalized) Sig (Original) magnesium oxide 400 mg oral tablet (4 sources) End: 07-21-2024 take 1 tablet by mouth in the morning magnesium oxide (Mag-Ox) 400 mg tablet Take 400 mg by mouth in the morning and 400 mg before bedtime. 07/21/2024 Discontinued tiZANidine 2 mg oral tablet (3 sources) Central alpha-2 Adrenergic Agonist Start: 12-11-2023 End: 07-21-2024 take 1 tablet by mouth twice daily as needed tiZANidine (Zanaflex) 2 MG tablet TAKE 1 TO 2 TABLETS BY MOUTH TWICE A DAY NEEDED FOR SPASM 12/11/2023 07/21/2024 Discontinued Problems Active Problems Problem Classification Problem Date Documented Date Episodic/Chronic Abdominal pain (6 sources) Right flank pain; Translations: [Unspecified abdominal pain] 02-18-2025 Episodic Administrative/social admission (2 sources) Patient encounter status; Translations: [Other specified counseling] 08-20-2024 Episodic Disorders of lipid metabolism (20 sources) Raised low density lipoprotein cholesterol; Translations: [Pure hypercholesterolemia, unspecified] Onset: 07-03-2023 07-03-2023 Chronic Esophageal disorders (20 sources) Gastroesophageal reflux disease without esophagitis; Translations: [Gastro-esophageal reflux disease without esophagitis] Onset: 08-10-2023 08-10-2023 Chronic Essential hypertension (20 sources) Hypertensive disorder; Translations: [Essential (primary) hypertension] Onset: 07-03-2023 07-03-2023 Chronic Headache; including migraine (1 source) Headache; including migraine; Translations: [HEADACHE UNSPECIFIED] Onset: 12-28-2020 Miscellaneous mental health disorders (2 sources) Primary insomnia; Translations: [Primary insomnia] 08-20-2024 Chronic Osteoporosis (20 sources) Senile osteoporosis; Translations: [Age-related osteoporosis without current pathological fracture] Onset: 12-29-2023 12-29-2023 Chronic Other bone disease and musculoskeletal deformities (4 sources) Idiopathic scoliosis of thoracic and lumbar spine; Translations: [Other idiopathic scoliosis, thoracolumbar region] 03-07-2025 Chronic Other lower respiratory disease (1 source) Cough; Translations: [COUGH] Onset: 12-28-2020 Episodic Other non-traumatic joint disorders (8 sources) Derangement of right shoulder joint; Translations: [Other specific joint derangements of right shoulder, not elsewhere classified] 09-15-2024 Chronic Other nutritional; endocrine; and metabolic disorders (20 sources) Hypercalcemia; Translations: [Hypercalcemia] Onset: 07-03-2023 07-03-2023 Chronic Residual codes; unclassified (12 sources) History of arthroscopic procedure on shoulder; Translations: [Other specified postprocedural states] 11-04-2024 Episodic Residual codes; unclassified (2 sources) Other problems related to lifestyle; Translations: [Other problems related to lifestyle] 08-20-2024 Episodic Spondylosis; intervertebral disc disorders; other back problems (20 sources) Cervical spondylosis without myelopathy; Translations: [Spondylosis without myelopathy or radiculopathy, cervical region] Onset: 07-03-2023 12-29-2023 Chronic Unclassified (4 sources) CONTACT W/AND (SUSP) EXPOS COVID-19; Translations: [CONTACT W/AND (SUSP) EXPOS COVID-19] Onset: 12-21-2020 Past or Other Problems Problem Classification Problem Date Documented Da te Episodic/Chronic Mood disorders (20 sources) Mood disorders Onset: 08-20-2024 08-20-2024 Other connective tissue disease (2 sources) Capsulitis; Translations: [Other enthesopathies, not elsewhere classified] 07-21-2024 Episodic Other non-traumatic joint disorders (2 sources) Pain in right shoulder; Translations: [Pain in joint, shoulder region] 07-23-2024 Episodic Other nutritional; endocrine; and metabolic disorders (20 sources) Body mass index 25-29 - overweight; Translations: [Overweight] Onset: 07-03-2023 07-03-2023 Episodic Residual codes; unclassified (20 sources) Insomnia; Translations: [Insomnia, unspecified] Onset: 07-03-2023 07-03-2023 Episodic Spondylosis; intervertebral disc disorders; other back problems (20 sources) Spasm of muscle of lower back; Translations: [Muscle spasm of back] Onset: 07-03-2023 07-03-2023 Episodic Viral infection (20 sources) Postherpetic neuralgia; Translations: [Other postherpetic nervous system involvement] Onset: 07-03-2023 07-03-2023 Episodic Results Test Name Value Interpretation Reference Range Facility MR lumbar spine wo [facility] MR lumbar spine wo [facility] [place] [address] MRI Report Signed Patient: Miguel Gonzalez MR#: [id number] : 1955 Acct:[id number] Age/Sex: 69 / F ADM Date: 03/18/25 Loc: Room: Type: [facility] Attending Dr: Blu Kothari II, MD Copies to: Blu Kothari II, MD Ordering Provider: Blu Kothari II, MD Date of Service: 03/18/25 MR/MR lumbar spine wo con: M47.27,M41.25,M54.369 MRI lumbar spine performed without contrast INDICATION: Pain, back pain for 3 years, heavy lifting at work COMPARISON: X-rays lumbar spine 09/05/2015 and MRI lumbar spine 10/23/2015 FINDINGS: Mild levocurvature. Lumbar vertebral heights maintained. Slight heterogeneity of the bone marrow signal noted. There are minimal endplate marrow changes L2-3 and L1-L2. Moderate multilevel facet arthropathy. Disc space narrowing, mild L2-L4, L1-2, and L5-S1. Minimal anterolisthesis L3 on L4 1 to 2 mm. The conus medullaris terminates normally at mid L1. Nerve roots of the cauda equina unremarkable. Paraspinal soft tissues are unremarkable. T12-L1: Minimal broad-based disc bulge with right subarticular zone protrusion. Mild facet arthropathy. No central canal or neural foraminal narrowing. L1-2: Mild facet arthropathy. No significant disease central canal or neural from narrowing identified. L2-3: Broad-based disc bulge with cini-wd-jgsxcytf facet arthropathy. Minimal foraminal narrowing. Canal is patent. L3-L4: Circumferential disc bulge with moderate facet arthropathy. Mild neural foraminal narrowing. Minimal central canal stenosis. L4-5: Disc desiccation. Moderate disc facet arthropathy. No significant central canal or neural from narrowing identified. L5-S1: Circumferential disc bulge with moderate facet arthropathy. Moderate right moderate left neural foraminal narrowing. MR/MR lumbar spine wo con IMPRESSION: Vavm-ph-nhddkcvx multilevel degenerative changes without high-grade canal or neural foraminal narrowing. Moderate left neural foraminal narrowing at L5-S1 Impression dictated by: Ever Odonnell M.D. 03/18/2025 3:49 PM Dictation Location: [place] [address] Transcribed By: [facility] 03/18/25 1549 Dictated By: Ever Odonnell MD 03/18/25 1509 Signed By: 03/18/25 1549 Normal [facility] Magnetic resonance imaging r eportOrdered By: Ever Odonnell on 03-18-2025 Study report [facility] [place] [address] MRI Report Signed Patient: Miguel Gonzalez MR#: [id number] : 1955 Acct:[id number] Age/Sex: 69 / F ADM Date: 5 Loc: MR Room: Type: [facility] Attending Dr: Blu Kothari II, MD Copies to: Blu Kothari II, MD~ Ordering Provider: Blu Kothari II, MD Date of Service: 03/18/25 MR/MR lumbar spine wo con: M47.27,M41.25,M54.369 MRI lumbar spine performed without contrast INDICATION: Pain, back pain for 3 years, heavy lifting at work COMPARISON: X-rays lumbar spine 09/05/2015 and MRI lumbar spine 10/23/2015 FINDINGS: Mild levocurvature. Lumbar vertebral heights maintained. Slight heterogeneity of the bone marrow signal noted. There are minimal endplate marrow changes L2-3 and L1-L2. Moderate multilevel facet arthropathy. Disc space narrowing, mild L2-L4, L1-2, and L5-S1. Minimal anterolisthesis L3 on L4 1 to 2 mm. The conus medullaris terminates normally at mid L1. Nerve roots of the cauda equina unremarkable. Paraspinal soft tissues are unremarkable. T12-L1: Minimal broad-based disc bulge with right subarticular zone protrusion. Mild facet arthropathy. No central canal or neural foraminal narrowing. L1-2: Mild facet arthropathy. No significant disease central canal or neural from narrowing identified. L2-3: Broad-based disc bulge with mwdg-xs-ppvuyvwh facet arthropathy. Minimal foraminal narrowing. Canal is patent. L3-L4: Circumferential disc bulge with moderate facet arthropathy. Mild neural foraminal narrowing. Minimal central canal stenosis. L4-5: Disc desiccation. Moderate disc facet arthropathy. No significant central canal or neural from narrowing identified. L5-S1: Circumferential disc bulge with moderate facet arthropathy. Moderate right moderate left neural foraminal narrowing. MR/MR lumbar spine wo con IMPRESSION: Deiy-wj-ngvhjdtj multilevel degenerative changes without high-grade canal or neural foraminal narrowing. Moderate left neural foraminal narrowing at L5-S1 Impression dictated by: Ever Odonnell M.D. 03/18/2025 3:49 PM Dictation Location: [place] [address] Transcribed By: [facility] 03/18/25 1549 Dictated By: Ever Odonnell MD 03/18/25 1509 Signed By: 03/18/25 1549 [facility] Work Phone: CT ABDOMEN PELVIS W IV CONTR Antonella 02-24-2025 CT ABDOMEN PELVIS W IV CONTRAST CT of the abdomen and Pelvis CTDI is 27.27 mGy and DLP is 1284.81 mGy-cm. Technique: Spiral CT of the abdomen and pelvis was performed after the intravenous infusion of 100 cc of Isovue 300 following a 1 and 5-minute delay. Reconstructed sagittal and coronal images were obtained. Findings: Comparison: No prior Lung bases: Motion artifact is seen in the bases of the lungs. ABDOMEN: Liver: Unremarkable. No mass. Gallbladder and bile ducts: Unremarkable. No calcified stones. No ductal dilation. Pancreas: Unremarkable. No mass. No ductal dilation. Spleen: Unremarkable. No splenomegaly. Adrenals: Unremarkable. No mass. Kidneys and ureters: No hydronephrosis or obstructing stone. Stomach and bowel: There is a small hiatal hernia. Evaluation of the stomach is limited by under distention. No small bowel obstruction. No mucosal thickening. A large amount of fecal material is seen throughout the colon. Intraperitoneal space: Unremarkable. No free air. No significant fluid collection. Bones/joints: No acute fracture. No dislocation. S-shaped scoliosis. Severe intervertebral disc space narrowing at T12-L1 and L5-S1. Soft tissues: Unremarkable. Vasculature: Unremarkable. No abdominal aortic aneurysm. Lymph nodes: No bulky adenopathy, or pathologically enlarged lymph nodes seen. PELVIS: Appendix: Surgically absent. Bladder: Unremarkable. No mass. Reproductive: Surgically absent. IMPRESSION: Impression: No evidence for hydronephrosis, cholecystitis or cholelithiasis, pancreatitis, nephrolithiasis, bowel obstruction or diverticulitis. Large amount of fecal material throughout the colon suggestive of constipation. Degenerative changes are seen in the spine and there is a prominent scoliosis ELECTRONICALLY SIGNED BY: Pérez Courtney, DO Normal Not Available CREATININEon 02-23-2025 Creatinine [Mass/Vol] 0.55 mg/dL Normal 0.50-1.05 [email or web address] Comment on above: Performed By: #### 3 75 #### [facility] [address], [address] [place] [id number] Video Player Mechanic: Truman Liao MD GFR/1.73 sq M.predicted among non-blacks MDRD (S/P/Bld) [Vol rate/Area] 99 mL/min/{1.73_m2} Normal > OR = 60 [facility] Comment on above: Performed By: #### 3 75 #### [facility] [address], [address] [place] [id number] Video Player Mechanic: Truman Liao MD Urinalysis macro (dipstick) panel (U)on 02-18-2025 Bilirubin, UA Negative Negative - 4(70) +++ mg/dL [facility] Blood, UA Negative Negative - 50 Tna/mcL [facility] Glucose, UA Negative Negative - 1999(110) ++++ mg/dL [facility] Ketones, UA Negative Negative - 160(16) ++++ mg/dL [facility] Leukocytes, UA Negative Negative - 500+++ [place]/mcL [facility] Nitrite, UA Negative Negative - Positive [facility] pH, UA 6.5 5 - 9 [facility] Protein, UA Negative Negative - 1999(20) ++++ mg/dL [facility] Spec Grav, UA 1.005 1 - 1.03 [facility] Urobilinogen, UA 0.2 0.2 - 12 mg/dL [facility] MR SHOULDER RIGHT WO IV CONT RASTon 08-11-2024 MR SHOULDER RIGHT WO IV CONTRAST EXAMINATION: MR SHOULDER RIGHT WO IV CONTRAST HISTORY: Right shoulder pain. TECHNIQUE: Routine non-contrast MRI of the shoulder right COMPARISON: Radiographs 07/27/2024. RESULT: Some limitations from motion. Rotator Cuff Tendons: Mild to moderate tendinosis involving supraspinatus, with probable small full-thickness tear (versus high-grade partial-thickness tear) of the anterior fibers measuring around 8 mm AP, within limits of motion, with other intact appearing more posterior fibers. Mild tendinosis involving infraspinatus, without tear. Mild to moderate tendinosis of subscapularis, with small area of interstitial tearing, without distinct full-thickness tear. Teres minor appears intact. Long Head Biceps Tendon: Complete tear with distal retraction to the region of the humeral head neck junction. Muscle: Muscle bulk and signal intensity are within normal limits. Labrum: Areas of fraying/tearing, especially superiorly. Bones and Marrow: No evidence of fracture or bone marrow replacing process. Glenohumeral Joint: Osteophytes without distinct full-thickness chondral defect within limits of motion. Acromioclavicular Joint: Mild to moderate degenerative changes. Undersurface osteophytes. Other: Small amount of fluid in the subacromial subdeltoid bursal region. IMPRESSION: Rotator cuff tendinosis with probable small full-thickness tear (versus high-grade partial-thickness tear) of anterior supraspinatus, within limits of motion. Complete tear with distal retraction of the long head biceps tendon. ELECTRONICALLY SIGNED BY: Blu Hahn MD Normal Not Available Comment on above: Order Comment: MRI R T shoulder w/o at [facility]. Orbits if needed. Eval for RT rotator cuff tear XR Shoulder - right 2 Viewso n 08-02-2024 Imaging Result: scapular Y and AP, and axillary x-rays of right shoulder showed humeral head to be well centered in the glenoid fossa. There was no evidence of subluxation or dislocation. There was no evidence of degenerative joint disease. Acromioclavicular joint appeared to be well preserved. There was no acute bony process including but not limited to fracture and/or dislocation. Impression: Unremarkable right shoulder. [facility] XR Shoulder - right 2 ViewsO rdered By: Jr. Waite on 08-02-2024 [facility] Work Phone: XR Shoulder - right 2 Viewso n 07-27-2024 Radiology Study observation (narrative) [facility] Coding Summary.on 04-15-2021 Coding Summary. [id number] Gh 0bWw+PGhlYWQ+MM0MXCMcM 36hlQQguV1KP0uJBX6THVQ ICEXOLH9LXT5azYP5NWegP 2VybiAv NpszjKNoRR18HCj3NMO7hY knMZainR5rpUIqP8j8IiLs CU29xU49CYeuJDHqDoJ5Bt ZpbjsgbWFy R2rmQwBqxCDgZgd+PHRhYm xlIHdpZHRoPScxMDAlJyBz qFnkOB4xDf1bFWNbKUGamK xhcHNlOiBj i3gyYHTlYHzdCG1hpKprM5 ViqQG4RLGkf1x2Rh82kWT+ PEBxZVG0dIoaKRgwr485Pu Dyh2pgINF8 zMFwRTxiRPW6W03rj3I6TU RrQJNtATR5qHJ9nE7qhDoh kqhpL8KkpGVtPmP3SND4iW ZcpH6fpZet krjeqL2wYhb+J46UFZ3SOR SSGI2TKox3S5BrYxbtmSL+ HF81LWYlKI10tZBrzXEfm1 bicSg5BqNe ABBlOWG3fHeoUOtir6QfSQ KkR02efWPqw4N9SOPbnTob rUUlRvAzcWO2xQ4fHFsqpv chd7xdappb Zgzso5vrtf58uE19J33nVS eoRSOaMJF1PRUfPGQoxRkp ip8yiY5lWu7+ZRueu2imp1 gtgHr3XuSq QQJdtyStrTajAAU7n6YfJq 79L4HwnVtey3NzGpy5uq12 mIIvu0Z5bDH8ICanMUOngJ 2nIYzkXwT4 DZOcPuDstU21xCXyRWzoXo 4nxHxrbVfwFI2tHSJucare VOMgnJ1kDUGgwDPmpPvoOK 4wNTBpbjtm h827ZrLxJUX6BAAdpGWqC0 HltE5xMjEgOKIlVCDdG0Gl nIAcVIhgJ589QPfbBlV0RO FzutBkS5Xg UEIaqUptPoX9m9W8Jm9Cy4 MfmygbHKZ6FAzsWII7SfFo QjNuJzK1N8CgZho4VMPgkM zkIG6oP1Xt QXQmwltdpcbjyZQ6OHSqFD IfrM97pWGbCWnhAu7pe8L6 j254POUkDNTnoF71Xh5opI ogMTBwdCBU bY4rconeg9yojwlwWtRoDK BcERm9CNq4KOGxyJvzJgVc GKA4EoE8UDI0mUIbjT5btY bprjtpaJ4k Oyc+B23euQ6bJXE6YUD1le auSYXccoRjHK02WF27T4Qf PjwvdGFibGU+PGRpdiBzdH dyLV4eUiFj e2ngj1PzVAjmV4MgIWJeLN cdDoa0TNQcRXB7bWP0dH5n PVMoYGxpw4T8sWT9D6Ygtu Butz3ea4mv GWQfOKrhP34lhZKwe5V0CU JhbQG9MWSgqDthOrLvvE63 Oyc+EYTtrTxqj4RpYzhow7 oyy6cyrJs9 FePcOSGwwmIcyRtgYIA6r5 DdOo38E62wPFdiRLTjDKWs TMVhNIUrcHvjax4dwT7lZf 8+PGNvbCB3 rPH2nY0hFACtJaV9JJhyU8 21ClHgvKPvKvppk8jrj0te pHx5HvFtNITvvhKroLtjSY W4k5QuTh47 Q09aXNhvJSXhWXAmPGNmPG HkgMjkdd4noU3jVi9+PC9j e1bgmb20iL48cEU+PHRkIH S3rExaEPpt UXGcsT6jVUktBjT8ICPpYj DefL54pJYbIAfeDk9syMbu tJqeEX4yPKAvjozgx059Vy Tvb4uzNPFv qPTaOAewYTB7I18ey3H4TI OuURQrTMA5tMS3bX4ghAki bjogbGVmdDsgdmVydGljYW gmBTcbN316 IHRvcDsnPlBhdGllbnQgTm ZbAIu1S2QwScs9FMYwdXny BJ7duANnBNrqCu9wmXakuS edYU6oXYVi ajrgr329JdJsn4ryCTSckS AvRBquKBT9G03sh0R9HISm NBWwELC2iIW0cW4rxIsqya ogbGVmdDsg deJizJykGQolKOxsW817WJ RvcDsnPkJpcnRoIERhdGU6 HC02OJ11kHDrp1F0qJS3V5 BhZGRpbmct fghjaLC4ACSyHVQfzX15Xe 2cwXewVp4kZCDcDLJ6JHIc nRGdW9LsjC1vXsAeEQAuKK TbI3NogNUi KPioM775SRwgRyP2EVUjda YoO8NsQZVxuSlzMbG0i5Q4 Hu2TU7S4HS86JG96lCIeq6 B0gSH9Y2Yi QFMnswzsoovjgLB1KZZrUV YzqI62Jo9dhVwmAq2yVLWk XXR5FUBpaQQjR5LrbX9eIb AjMDAwMDAw I6WwhZJfTDvvC317AZuoSz S0QRVhcxHoK0WlECRnuAve MkR5v3B5Bg0YFQs7EG21YZ 00xFNra9N1 qTY8W0TbVIKrnfxcthjnzE C8TLGvXGAywX79Eo5oiNhl Uf8aFQLlMRL4BOTofHBkB6 AuoF1iKdRy UEYtESBmY4EavDLnCOujT2 40GAksTjV7KYSbusXzV8Gj KWEhkAwfXdF2z1A0Pk5QKG YtCT45VWY9 pAM1FE17JL35T7BmNalwmQ FibGU+PHRhYmxlIHdpZHRo ROaoFIAhRuHnxFrvZA2eDa 9yZGVyLWNv wLgntAJnMoFkv8ulACTjGS vzGL7zqCzhH1CtoUK8XRIt o0g8Lw04Z86kW6AwcQD+PG AhcGI5uOK7 bH4pMpGoVoC1TIycR770Og QjcLUkGeebr5lti6sfaLn0 FpO9BPYgqjVibVtkRBP1y6 XgAq00P41z IHdpZHRoPSIxNSUiIHZhbG zoeo4ayB9nEq4+PGNvbCB3 mBB9iK8fDkMnDwC6LDwsT1 49InRvcCIv Softh3her6sesTr6OhJxIK CqyrQkdEqxGLI5i8AoUv33 D8AkbTyda7RhWwu9ta63lZ Lyn8U3eXO2 V0DlADYshjzugEErkZfpKB 6nJLCqshkqWVCipB2mMFYe J6p4TiMpWjL7FKnyU4Dfwx G5LFXfuOBv DJmuRJT2R23gw4L2WWFsNL ZjEKQ0eYN3rY7qkIvxktld bGVmdDsgdmVydGljYWwtYW xnN153SUJw jXhkCTKamH6kAGOneFXdnO enAG8qRHNfzlwkGcaFBEKA PUBBJPYVGWFYSB57SR28aC Smo4S5cYF1 C3YlJSLvrzyriyjirYG2VG TyHOFvvX49cKQrMJclOx3a x6S0b571ASXlUQPjcB76Ww 9udDogMTBw aFTGnG8ebcwyb3kvukzhHp CfIJKgBWe4XZw7QGZivVbh TmTuERF4JfE5KIM7qCYjmB 1hbGlnbjog xL2vZam+VQKyTtZcYUm7TK wvdGQ+RTOdFJV8nYynENiq RVXudP6oDBIpB4u2LhFpOy M6JJixD9Os KNZdhereWq87dB2nZbQdHb Q3MCeuK9WoboT7PBYbtJEj TKlqTVK9A32am8H4VTQdOL SxGQM1lKU3 rH0wqTnrwdmygDSlnHeepr DxrZdxLHbvQTxjX296PWOz fTlhXfR1FWubZWYsXL00VT 41gOHxy3V6 yID2K2UvEBFmgzmcvnchbS N1CWPuJQAzaE36eWXeLWnn Iq1by0D6c385GANtJABbrI 31Mc5gkBdl CXUmdWWCcV6aplysu6jjdw ttUcEyWEHaQZm9QVa4GTSw lYymVmSxEMF4RxN8JDT5qL VmvV7rlYjy purdnK1nGcf+RmVtYWxlPC 81FB91cDIfb2S6oHQ2Y2Gx MTQtciagvmrkwTH1UWDoDI JzzA09bYPg DDcqNm3gz1R7y145PDXkUJ XqwR41Tt1fnNwcZRIkpRWH aV4mewolx1wogntcYsPsRW ThGRc2JJl7 YVOggThkRlQnNCQ9FdH8FN R8sAQvaZ7qgVlqxjoeaS2v Oyc+NR5bmfocmoR5WS82IG 13E5NbIhdh dGFibGU+PHRhYmxlIHdpZH FzHBrdOXWeUrKmpBuqES6u Yw3nAGRfGCHddSkiqFBqRl Ocd0ysMVLb KIcnWE5iaHmuF4BmvJS0BK Gfe0p4Nm24F73tC3KvqNM+ JVRfxLC4bLO0rJ8tPjZyQx W3YShdE466 KxPjcCOnLvsfw2ixj5fnyT t7MqEoQQUlcyPqyWqaNPV0 q2BwUf65Z08nTPttLYMcUG IyMCUiIHZh aWtdpu0zaS9oLb5+PGNvbC C7xCM8eK9gUnDwLlL4XWyd E722VdVzuYIoKzeyH84dS6 JvdXA+PHRy Wac7IWCztZhmFV0zeDUlSO hgFd3fCML7VhEcFjKaAJjj A4OlHHQuhokbqekciNY6YX BjNRTzgQ08 De7fmKtmLe2rENPsTSA2RW YmqBViU7GsvT9sVcOcHEMl RXLhJ2OvhCQtEDrrB764XJ geMqE8BJNz dyTxV6RuWPUhuUivOwN3r0 B5Kc0LgIlduPLrDB3zDyTg JFk8E7FuUlc9ZLMitKbeMZ 0ncGFkZGlu Rp0ecKdiwVxkXT7cZKCxsv fra678IxEkv9nwWLHclUNz YSceVVN2W07br4T9EIPoHM BhVXI1aZD3 oD5bvIqvfnwuxIWgkSzppo SinRliNZgmDUppZ239SAHy oDvoNaRKEhc0S7YiZqh7AU XetUgaQM7p qOWnVMgeUm2egLmraCxmVJ 7zJTFxjvvua940NkAyu9gd XOXgdPDmXYkhATI7X02be4 U5QZTtDFEn VEH1qMB3hF5gpPuwpvmopY VmdDsgdmVydGljYWwtYWxp L873JQNaaHyeDh5TXky0M1 AmTqt9GWZn zGlqZA9diLVvWUnfOp0lcM rpjLwhSG8zJMFvjldsg098 HcRbm4ivHTIjdZPrVNpoIO M9X50wr3C2 LTYmLDSlZQZ4rSC9uP9zzA lnbjogbGVmdDsgdmVydGlj FChtUYkhR885AEYvjNrvAk BheWVyOjwv dGQ+LX75xr50S0VlRqwiFi b8CLIkNUC1xRB6mM8cGUGb TOmoy8Q9fBR4N0IlyxDhwt 7xv6ldWQZa ZTog (more content not included)... Normal [facility] ED Note-Physicianon 04-06-20 ED Note-Physician Basic Information [...] They are unsure of who the cats soliciting freight agent is. She states they are unsure whether the cat is up-to-date on its immunizations. She states that her dog is one after the cat, and she attempted to berry picker the cat when the cat turned [...] Appropriate mood & affect. Integumentary: Warm, Dry, [place]. Puncture wounds noted to the left thumb [...] Assessment/Plan 1. Cat bite of left hand (S61.382A: Open bite of left hand, initial encounter) 2. Cat scratch of lower leg (S80.511R: Abrasion, unspecified lower leg, initial encounter) Orders: Thumb Spica Splint Application Wound Care Routine XR Finger(s) Min 2 Views Left Medications Administered Given bacitracin/neomycin/po lymyxin B Top Oint, 1 linda, Topical bacitracin/neomycin/po lymyxin B Top Oint, 1 linda, Topical tetanus/diphtheria/per tussis, acel (Tdap) 5 units-2 units-15.5 mcg/0.5 mL IM Susp 0.5 mL, 0.5 mL, IntraMuscular diphtheria/pertussis, acel/tetanus adult, IntraMuscular Disposition Plan Patient Discharge Condition Improved Discharge Disposition Discharge home Discharge Prescription List Prescriptions Augmentin 875 mg-125 mg Tab, 1 tab(s), Oral, BID mupirocin Top 2% Oint, 1 linda, Topical, TID Follow-up With When Contact Information BLU DARCY In 3 days 04/08/2021 EDT [address] [place] [address] Business (1) Additional Instructions: Wear the splint [...] data Historical No qualifying data Medications Inpatient bacitracin/neomycin/po lymyxin B Top Oint, 1 linda, Topical, TID [...] body noted. Read By: Alexandr Eduardo PA-C [facility] Comment on above: Result Comment: Elec tronically Signed By: Alexandr Eduardo PA-C\.br\Date and Time Signed: 04/05/21 21:31 EDT\.br\Electronically Co-Signed By: Walter Aguilar, Abdoulaye Terrazas\Date and Time Co-Signed: 04/06/21 11:28 EDT Animal Bite Investigationon 04-05-2021 Animal Bite Investigation [id number]. 00CD:127 Normal [facility] Consent for Treatmenton 03-24 Consent for Treatment [id number] 0CD:127 Normal [facility] Discharge Instructionson Discharge Instructions [id number] .[id number]:127 Normal [facility] ED Clinical Summaryon 2020 ED Clinical Summary [place] [id number] ED Clinical Summary Person Information Name: MIGUEL GONZALEZ Loyda/[facility] Age: 65 Years : 1955 Sex: Female Language: Jordanian PCP: BLU KOTHARI MD Marital Status: Visit Id: Visit Reason: [...] 04/05/2021 14:46:42 04/05/2021 14:46:42 04/05/2021 14:46:42 ADDRESS: [address] [place] [address] [address] [place] [id number] [facility] DOC NOTES: MEDICAL INFORMATION: Prescriptions Given: New Medications Printed Prescriptions amoxicillin-clavulanat e (Augmentin 875 mg-125 mg Tab) 1 Tablets By Mouth 2 times a day for 10 Days. Take one tab by mouth twice a day for ten days. Refills: 0. mupirocin topical (mupirocin Top 2% Oint) 1 Application Topical 3 times a day. Refills: 0. PATIENT EDUCATION INFORMATION: Instructions: Animal Bite, Adult Follow up: With: Address: When: [place] [address] [id number] (1) In 3 days 04/08/2021 Comments: Wear [...] hand; 2:Cat scratch of lower leg Normal [facility] ED Patient Education Noteon 04-05-2021 ED Patient [...] and water are not available, use hand matrix worker. ? Change your dressing as told by [...] bad smell. Medicines ? Take or apply idra-aef-hufpoam and prescription medicines only as told by [...] antibiotic medic (more content not included)... Normal [facility] ED Patient Summaryon 021 ED Patient Summary [place] [id number] Patient Discharge Instructions Person Information Name: MIGUEL GONZALEZ Age: 65 Years Arrival Date: 04/05/2021 12:55:11 Discharge Diagnosis: 1:Cat bite of left hand; 2:Cat scratch of lower leg Primary Care Physician: BLU KOTHARI MD Provider Information Primary Provider: Abdoulaye Watson M.D. Advanced Senior Net Software Developer:Alexandr Eduardo PA-C The exam and treatment you received in the Emergency Department were for an urgent problem and are not intended as complete care. It is important that you follow up with a doctor, nurse practitioner, or physician?s trade sales assistant for ongoing care. If your symptoms become worse or you do not improve as expected and you are unable to reach your usual health care provider, you should return to the Emergency Department. We are available 24 hours a day. MIGUEL GONZALEZ has been given the following list of patient education materials, prescriptions and follow-up instructions: Follow-up Instructions: With: Address: When: BLU KOTHARI [address] [place], [place] [address] [address] Business (1) In 3 days 04/08/2021 Comments: [...] opioids can be used to help relieve hwajllvs-kp-okjwyz pain and are often prescribed following a [...] Food and Drug (more content not included)... Normal [facility] Vaccinationson 04-05-2021 Vaccinations [id number] .00CD:127 Normal [facility] XR Finger(s) Min 2 Views Lef ton [...] M.D. Transcribed by: MAYELIN Technologist: HARRY Neal [facility] Covid-19 PCR (CVDTBH)on 11-25 Covid-19 PCR NOT DETECTED Normal NOT DETECTED [facility] Comment on above: Result Comment: This test is not yet approved or cleared by the [place] FDA. When there are no FDA-approved or cleared tests available, and other criteria are met, FDA can make tests available under an emergency access mechanism called an Emergency Use Authorization (EUA). The EUA for this test is supported by the Emergency Department Aide of Health and Human Service's (HHS's) declaration [...] longer be used). Performed By: #### C [facility] #### [facility] [address] [place] [address] Adore Hale EUA Statement SEE BELOW Normal [facility] Comment on above: Result Comment: This test is not yet approved or cleared by the [place] FDA. When there are no FDA-approved or cleared tests available, and other criteria are met, FDA can make tests available under an emergency access mechanism called an Emergency Use Authorization (EUA). The EUA for this test is supported by the [place] of Health and Human Service?s (HHS?s) declaration [...] consistent with SARS-CoV-2. Performed By: #### C [facility] #### [facility] [address] [place], [place] [id number] Adore Hale Vital Signs Date Time Vital Sign Value Performing Clinician Faci sayray 03-25-2025 08:54-0400 Body height 144.8 cm Blu Kothari MD Work Phone: [facility] 03-25-2025 08:54-0400 Body mass index (BMI) [Ratio] 26.81 kg/m2 lBu Kothari MD Work Phone: [facility] 03-25-2025 08:54-0400 Body weight 56.2 kg Blu Kothari MD Work Phone: [facility] 03-25-2025 08:54-0400 Diastolic blood pressure 102 mm[Hg] Blu Kothari MD Work Phone: [facility] 03-25-2025 08:54-0400 Heart rate 68 /min Blu Kothari MD Work Phone: [facility] 03-25-2025 08:54-0400 Respiratory rate 16 /min Blu Kothari MD Work Phone: [facility] 03-25-2025 08:54-0400 SaO2% (BldA) [Mass fraction] 98 % Blu Kothari MD Work Phone: [facility] 03-25-2025 08:54-0400 Systolic blood pressure 164 mm[Hg] lBu Kothari MD Work Phone: [facility] 03-07-2025 09:18-0400 Body height 144.8 cm Blu Kothari MD Work Phone: [facility] 03-07-2025 09:18-0400 Body mass index (BMI) [Ratio] 26.62 kg/m2 Blu Kothari MD Work Phone: [facility] 03-07-2025 09:18-0400 Body weight 55.79 kg Blu Kothari MD Work Phone: [facility] 03-07-2025 09:18-0400 Diastolic blood pressure 76 mm[Hg] Blu Kothari MD Work Phone: [facility] 03-07-2025 09:18-0400 Heart rate 70 /min Blu Kothari MD Work Phone: [facility] 03-07-2025 09:18-0400 SaO2% (BldA) [Mass fraction] 99 % Blu Kothari MD Work Phone: [facility] 03-07-2025 09:18-0400 Systolic blood pressure 128 mm[Hg] Blu Kothari MD Work Phone: [facility] 02-18-2025 09:04-0400 Body height 144.8 cm Blu Kothari MD Work Phone: [facility] 02-18-2025 09:04-0400 Body mass index (BMI) [Ratio] 26.83 kg/m2 Blu Kothari MD Work Phone: [facility] 02-18-2025 09:04-0400 Body weight 56.25 kg Blu Kothari MD Work Phone: [facility] 02-18-2025 09:04-0400 Diastolic blood pressure 74 mm[Hg] Blu Kothari MD Work Phone: [facility] 02-18-2025 09:04-0400 Heart rate 72 /min Blu Kothari MD Work Phone: [facility] 02-18-2025 09:04-0400 SaO2% (BldA) [Mass fraction] 98 % Blu Kothari MD Work Phone: [facility] 02-18-2025 09:04-0400 Systolic blood pressure 132 mm[Hg] Blu Kothari MD Work Phone: [facility] 09-23-2024 08:16-0400 Body height 144.8 cm April MERAZ Work Phone: [facility] 09-23-2024 08:16-0400 Body mass index (BMI) [Ratio] 25.75 kg/m2 April MERAZ Work Phone: [facility] 09-23-2024 08:16-0400 Body weight 53.98 kg April Daren PA Work Phone: [facility] 08-20-2024 08:35-0400 Body height 144.8 cm Alexia Kohlimer PA Work Phone: [facility] 08-20-2024 08:35-0400 Body mass index (BMI) [Ratio] 25.92 kg/m2 Alexia Hemmer PA Work Phone: [facility] 08-20-2024 08:35-0400 Body weight 54.34 kg Alexia Hemmer PA Work Phone: [facility] 08-20-2024 08:35-0400 Diastolic blood pressure 86 mm[Hg] Alexia Hemmer PA Work Phone: [facility] 08-20-2024 08:35-0400 Heart rate 70 /min Alexia Hemmer PA Work Phone: [facility] 08-20-2024 08:35-0400 Respiratory rate 16 /min Alexia Hemmer PA Work Phone: [facility] 08-20-2024 08:35-0400 SaO2% (BldA) [Mass fraction] 96 % Alexia Hemmer PA Work Phone: [facility] 08-20-2024 08:35-0400 Systolic blood pressure 138 mm[Hg] Alexia Hemmer PA Work Phone: [facility] 07-27-2024 11:58-0400 Body height 144.8 cm Isabel Catherine CIRCUITRY NEGATIVE INSPECTOR Work Phone: [facility] 07-27-2024 11:58-0400 Body mass index (BMI) [Ratio] 25.75 kg/m2 Isabel Catherine NP Work Phone: [facility] 07-27-2024 11:58-0400 Body weight 53.98 kg Isabel Catherine NP Work Phone: [facility] 07-21-2024 14:44-0400 Body height 147.3 cm Blu Kothari MD Work Phone: [facility] 07-21-2024 14:44-0400 Body mass index (BMI) [Ratio] 25.71 kg/m2 Blu Kothari MD Work Phone: [facility] 07-21-2024 14:44-0400 Body weight 55.79 kg Blu Kothari MD Work Phone: [facility] 07-21-2024 14:44-0400 Diastolic blood pressure 80 mm[Hg] Blu Kothari MD Work Phone: [facility] 07-21-2024 14:44-0400 Heart rate 79 /min Blu Kothari MD Work Phone: [facility] 07-21-2024 14:44-0400 SaO2% (BldA) [Mass fraction] 98 % Blu Kothari MD Work Phone: [facility] 07-21-2024 14:44-0400 Systolic blood pressure 130 mm[Hg] Blu Kothari MD Work Phone: [facility] Encounters Encounter Date Encounter Type Care Provider Facility Start: 03-25-2025 End: 03-25-2025 Bamboo flowsheet Blu Kothari MD Work Phone: [facility] Start: 03-25-2025 End: 03-25-2025 Bamboo flowsheet Blu Kothari MD Work Phone: [facility] Start: 03-25-2025 End: 03-25-2025 Office outpatient visit 25 minutes Blu Kothari MD Work Phone: [facility] Comment on above: Lumbosacral spondylo sis with radiculopathy (Primary Dx) Start: 03-25-2025 End: 03-25-2025 ambulatory BLU KOTHARI Not Available Start: 03-18-2025 End: 03-18-2025 Patient encounter procedure Blu Kothari II Work Phone: [facility] Work Phone: Start: 03-18-2025 End: 03-18-2025 ambulatory Blu Kothari II Work Phone: [facility] Work Phone: Start: 03-07-2025 End: 03-07-2025 Bamboo flowsheet Blu Kothari MD Work Phone: [facility] Start: 03-07-2025 End: 03-07-2025 Bamboo flowsheet Blu Kothari MD Work Phone: [facility] Start: 03-07-2025 End: 03-07-2025 Office outpatient visit 25 minutes Blu Kothari MD Work Phone: [facility] Comment on above: Lumbosacral spondylo sis with radiculopathy (Primary Dx); Right flank pain, chronic; Other idiopathic scoliosis, thoracolumbar region; Lumbar disc narrowing Start: 03-07-2025 End: 03-07-2025 ambulatory BLU KOTHARI Not Available Start: 02-24-2025 End: 02-24-2025 ambulatory BLU KOTHARI Not Available Start: 02-18-2025 End: 02-18-2025 Bamboo flowsheet Blu Kothari MD Work Phone: [facility] Start: 02-18-2025 End: 02-18-2025 Bamboo flowsheet Blu Kothari MD Work Phone: [facility] Start: 02-18-2025 End: 02-18-2025 Office outpatient visit 25 minutes Blu Kothari MD Work Phone: [facility] Comment on above: Lumbosacral spondylo sis with radiculopathy (Primary Dx); Right flank pain, chronic Start: 02-18-2025 End: 02-18-2025 ambulatory BLU KOTHARI Not Available Start: 01-03-2025 End: 01-03-2025 Bamboo flowsheet April MERAZ Work Phone: [facility] Start: 01-03-2025 End: 01-03-2025 Bamboo flowsheet April MERAZ Work Phone: [facility] Start: 01-03-2025 End: 01-03-2025 Postop follow up visit related to original px April Mercedes PA Work Phone: [facility] Comment on above: S/P arthroscopy of r ight shoulder (Primary Dx) Start: 01-03-2025 End: 01-03-2025 ambulatory APRIL MERCEDES Not Available Start: 12-02-2024 End: 12-02-2024 Postop follow up visit related to original px April Mercedes PA Work Phone: [facility] Comment on above: S/P arthroscopy of r ight shoulder (Primary Dx) Start: 12-02-2024 End: 12-02-2024 ambulatory APRIL MERCEDES Not Available Start: 12-02-2024 End: 12-02-2024 Bamboo flowsheet April Mercedes PA Work Phone: [facility] Start: 12-02-2024 End: 12-02-2024 Bamboo flowsheet April Mercedes PA Work Phone: [facility] Start: 11-04-2024 End: 11-04-2024 Bamboo flowsheet April Mercedes PA Work Phone: [facility] Start: 11-04-2024 End: 11-04-2024 Bamboo flowsheet April Mercedes PA Work Phone: [facility] Start: 11-04-2024 End: 11-04-2024 Postop follow up visit related to original px April Mercedes PA Work Phone: [facility] Comment on above: S/P arthroscopy of r ight shoulder (Primary Dx) Start: 11-04-2024 End: 11-04-2024 ambulatory APRIL Hameed DAREN Not Available Start: 10-19-2024 End: 10-19-2024 Refill Isabel Catherine CIRCUITRY NEGATIVE INSPECTOR Work Phone: [facility] Comment on above: Internal derangement of right shoulder (Primary Dx) Start: 09-23-2024 End: 09-23-2024 Bamboo flowsheet April Hameed Daren PA Work Phone: [facility] Start: 09-23-2024 End: 09-23-2024 Bamboo flowsheet April Hameed Daren PA Work Phone: [facility] Start: 09-23-2024 End: 09-23-2024 Patient encounter procedure April Hameed Daren PA Work Phone: [facility] Comment on above: Pre-op examination ( Primary Dx) Start: 09-23-2024 End: 09-23-2024 Preprocedural examination done April Hameed Daren PA Work Phone: [facility] Work Phone: Start: 09-23-2024 End: 09-23-2024 ambulatory APRIL Hameed MERCEDES Not Available Start: 09-15-2024 End: 09-15-2024 Bamboo flowsheet Jr. Son Guerrero Stepanic DO Work Phone: [facility] Start: 09-15-2024 End: 09-15-2024 Bamboo flowsheet Jr. Son Guerrero Stepanic DO Work Phone: [facility] Start: 09-15-2024 End: 09-15-2024 Office outpatient visit 25 minutes Jr. Son Guerrero Stepanic DO Work Phone: [facility] Comment on above: Internal derangement of right shoulder (Primary Dx) Start: 09-15-2024 End: 09-15-2024 ambulatory SON MELISSA Not Available Start: 08-23-2024 End: 08-23-2024 Telephone encounter Jr. Son Guerrero Stepanic DO Work Phone: [facility] Comment on above: Surgery Start: 08-20-2024 End: 08-20-2024 Bamboo flowsheet Alexia Reid PA Work Phone: [facility] Start: 08-20-2024 End: 08-20-2024 Bamboo flowsheet Alexia Reid PA Work Phone: [facility] Start: 08-20-2024 End: 08-20-2024 Patient encounter procedure Alexia MERAZ Work Phone: [facility] Comment on above: Medicare annual well ness visit, subsequent (Primary Dx); ACP (advance care planning); Primary insomnia; Lumbosacral spondylosis with radiculopathy; Post herpetic neuralgia (CMS/HCC); Primary hypertension (CMS/HCC); Gastroesophageal reflux disease without esophagitis; Age-related osteoporosis without current pathological fracture ([facility]/HCC); Cervical spondylosis without myelopathy; Lumbar paraspinal muscle spasm; Overweight (BMI 25.0-29.9); Elevated LDL cholesterol level ([facility]); History of hysterectomy; Hypercalcemia; Other problems related to lifestyle; Internal derangement of right shoulder Start: 08-20-2024 End: 08-20-2024 ambulatory ALEXIA REID Not Available Start: 08-13-2024 End: 08-13-2024 Bamboo jaime Waite DO Work Phone: [facility] Start: 08-13-2024 End: 08-13-2024 Bambodelfina flowsserg Waite DO Work Phone: [facility] Start: 08-13-2024 End: 08-13-2024 Office outpatient visit 25 minutes Jr. Son Waite DO Work Phone: [facility] Comment on above: Internal derangement of right shoulder (Primary Dx) Start: 08-13-2024 End: 08-13-2024 ambulatory SON MELISSA Not Available Start: 08-11-2024 End: 08-11-2024 ambulatory ISABEL CATHERINE Not Available Start: 07-27-2024 End: 07-27-2024 Bamboo flowsheet Isabel Catherine CIRCUITRY NEGATIVE INSPECTOR Work Phone: [facility] Start: 07-27-2024 End: 07-27-2024 Bamboo flowsheet Isabel Catherine CIRCUITRY NEGATIVE INSPECTOR Work Phone: [facility] Start: 07-27-2024 End: 07-27-2024 Office outpatient new 30 minutes Isabel Catherine CIRCUITRY NEGATIVE INSPECTOR Work Phone: [facility] Comment on above: Internal derangement of right shoulder (Primary Dx); Right shoulder pain, unspecified chronicity Start: 07-27-2024 End: 07-27-2024 ambulatory ISABEL CATHERINE Not Available Start: 07-21-2024 End: 07-21-2024 Office outpatient visit 25 minutes Blu Kothari MD Work Phone: [facility] Comment on above: Cervical spondylosis without myelopathy (Primary Dx); Age-related osteoporosis without current pathological fracture ([facility]); Primary hypertension ([facility]); Gastroesophageal reflux disease without esophagitis; Lumbosacral spondylosis with radiculopathy; Elevated LDL cholesterol level ([facility]); Shoulder capsulitis, right Start: 07-21-2024 End: 07-21-2024 ambulatory BLU KOTHARI Not Available Start: 07-21-2024 End: 07-21-2024 Bamboo flowsheet Blu Kothari MD Work Phone: [facility] Start: 07-21-2024 End: 07-21-2024 Bamboo flowsheet Blu Kothari MD Work Phone: [facility] Start: 12-29-2023 Refill Blu Kothari MD Work Phone: [facility] Comment on above: Cervical spondylosis without myelopathy (Primary Dx) Start: 11-10-2023 End: 11-11-2023 ambulatory Bouchra Angel MD Facility: [facility] Start: 09-29-2023 End: 09-30-2023 ambulatory Bouchra Angel MD Facility: [facility] Start: 09-01-2023 End: 09-02-2023 ambulatory Bouchra Angel MD Facility: [facility] Start: 08-04-2023 End: 08-05-2023 ambulatory Boucrha Angel MD Facility: [facility] Start: 12-21-2020 End: 12-21-2020 Patient encounter procedure BLU KOTHARI Facility:[facility] Procedures Date Procedure Procedure Detail Performing Clinician Start: 03-18-2025 MR lumbar spine wo con Blu Kothari II Work Phone: Start: 02-18-2025 Urnls dip stick/tablet rgnt non-auto w/o micrscp Blu Kothari MD Work Phone: Start: 07-27-2024 Radex shoulder complete minimum 2 views Isabel Brown Mariaa CIRCUITRY NEGATIVE INSPECTOR Work Phone: Start: 07-03-2023 H/O: hysterectomy History of hysterectomy Blu Kothari MD Work Phone: H/O: hysterectomy History of hysterectomy Alexia MERAZ Work Phone: Plan of Treatment Date Care Activity Detail Author Start: 07-17-2026 Screening for malign ant neoplasm of colon [facility] Start: 08-20-2025 Medicare Annual Wellness (AWV) Medicare Annual Wellness (AWV) [facility] Start: 05-23-2025 Influenza vaccination Influenza Vacc ine (#1) [facility] Comment on above: Postponed from 07/25 (Patient Refused) Start: 03-25-2025 End: 03-25-2025 Patient encounter procedure [facility] Comment on above: Arrived Start: 03-07-2025 End: 03-07-2026 MR Lumbar spine WO contrast MR lumbar spine wo contrast Imaging Routine Lumbosacral spondylosis with radiculopathy Other idiopathic scoliosis, thoracolumbar region Lumbar disc narrowing Expected: 03/07/2025 (Approximate), Expires: 03/07/2026 [facility] Work Phone: Comment on above: Expected: 03/07/2025 (Approximate), Expires: 03/07/2026 Start: 03-07-2025 End: 03-07-2025 Patient encounter procedure [facility] Comment on above: Arrived Start: 02-18-2025 End: 02-18-2026 Creatinine [Mass/volume] in Serum or Plasma Creatinine, Serum Lab Routine Right flank pain, chronic Expected: 02/18/2025 (Approximate), Expires: 02/18/2026 [facility] Comment on above: Expected: 02/18/2025 (Approximate), Expires: 02/18/2026 Start: 02-18-2025 End: 02-18-2026 CT Abdomen and Pelvis W contrast IV CT abdomen pelvis w IV contrast Imaging Routine Right flank pain, chronic Expected: 02/18/2025 (Approximate), Expires: 02/18/2026 [facility] Healthcare Work Phone: Comment on above: Expected: 02/18/2025 (Approximate), Expires: 02/18/2026 Start: 02-18-2025 End: 02-18-2025 Patient encounter procedure [facility] Comment on above: Arrived Start: 01-03-2025 End: 01-03-2025 Patient encounter procedure [facility] Comment on above: S/P arthroscopy of r ight shoulder (Primary Dx) Start: 12-02-2024 End: 12-02-2024 Patient encounter procedure [facility] Comment on above: S/P arthroscopy of r ight shoulder (Primary Dx) Start: 11-04-2024 End: 11-04-2024 Patient encounter procedure [facility] Comment on above: S/P arthroscopy of r ight shoulder (Primary Dx) Start: 09-23-2024 End: 09-23-2024 Patient encounter procedure [facility] Comment on above: Pre-op examination ( Primary Dx) Start: 09-15-2024 End: 09-15-2024 Patient encounter procedure [facility] Comment on above: Arrived Start: 08-23-2024 Screening for malign ant neoplasm of breast Mammogram [facility] Comment on above: Postponed from 05/13 (Patient Refused) Start: 08-20-2024 End: 08-20-2025 CBC W Auto Differential panel - Blood CBC and differential Lab Routine Medicare annual wellness visit, subsequent Primary hypertension (CMS/HCC) Expected: 08/20/2024 (Approximate), Expires: 08/20/2025 [facility] Work Phone: Comment on above: Expected: 08/20/2024 (Approximate), Expires: 08/20/2025 Start: 08-20-2024 End: 08-20-2025 Comprehensive metabolic 2000 panel - Serum or Plasma Comprehensive metabolic panel Lab Routine Medicare annual wellness visit, subsequent Primary hypertension (CMS/HCC) Elevated LDL cholesterol level (CMS/HCC) Hypercalcemia Expected: 08/20/2024 (Approximate), Expires: 08/20/2025 [facility] Comment on above: Expected: 08/20/2024 (Approximate), Expires: 08/20/2025 Start: 08-20-2024 End: 08-20-2025 HEPATITIS C AB W/RFL RNS, PCR W/RFL GENOTYPE,LIPA HEPATITIS C AB W/RFL RNS, PCR W/RFL GENOTYPE,LIPA Lab Routine Medicare annual wellness visit, subsequent Other problems related to lifestyle Expected: 08/20/2024 (Approximate), Expires: 08/20/2025 [facility] Comment on above: Expected: 08/20/2024 (Approximate), Expires: 08/20/2025 Start: 08-20-2024 End: 08-20-2025 Lipid 1996 panel - Serum or Plasma Lipid panel Lab Routine Medicare annual wellness visit, subsequent Primary hypertension (CMS/HCC) Elevated LDL cholesterol level (CMS/HCC) Expected: 08/20/2024 (Approximate), Expires: 08/20/2025 [facility] Comment on above: Expected: 08/20/2024 (Approximate), Expires: 08/20/2025 Start: 08-20-2024 End: 08-20-2024 Patient encounter procedure [facility] Comment on above: Arrived Start: 08-13-2024 End: 08-13-2024 Patient encounter procedure [facility] Comment on above: Arrived Start: 08-11-2024 End: 08-11-2024 Professional / ancillary services management 08/11/2024 8:00 AM EDT Ancillary Procedure [facility] [address] [facility] [place] [id number] [facility] Start: 08-06-2024 End: 08-06-2024 Patient encounter procedure 08/06/2024 9:30 AM EDT Office Visit [facility] [address] [facility] [address] [place] [id number] Blu Kothari MD [address] [facility] [address] [place], [place] [id number] [facility] Start: 08-01-2024 Medicare Annual Wellness (AWV) Medicare Annual Wellness (AWV) [facility] Start: 07-27-2024 End: 07-27-2025 MR Shoulder - right WO contrast MR shoulder right wo IV contrast Imaging Routine Internal derangement of right shoulder Expected: 07/27/2024 (Approximate), Expires: 07/27/2025 [facility] Work Phone: Comment on above: Expected: 07/27/2024 (Approximate), Expires: 07/27/2025 Start: 07-27-2024 End: 07-27-2024 Patient encounter procedure 07/27/2024 9:00 AM EDT Office Visit [facility] [address] [facility] [address] [place] [address] Isabel Catherine, CIRCUITRY NEGATIVE INSPECTOR [address] [facility] [place], [place] [id number] Right shoulder pain, unspecified chronicity [facility] Comment on above: Right shoulder pain, unspecified chronicity Start: 07-25-2024 Influenza vaccination Influenza Vacc ine (#1) [facility] Start: 07-21-2024 End: 07-21-2024 Patient encounter procedure 07/21/2024 2:45 PM EDT Office Visit [facility] [address] [facility] [address] [place] [address] Blu Kothari MD [address] [facility] [address] [place] [address] Arrived [facility] Comment on above: Arrived Start: 12-29-2023 End: 12-29-2023 Patient encounter procedure 12/29/2023 3:30 PM EST Office Visit [facility] [address] [facility] [address] [place] [address] Blu Kothari MD [address] [facility] [address] [place] [address] [facility] Start: 06-20-2022 Pneumococcal Vaccine : 65+ Years (2 - PCV) Pneumococcal Vaccine: 65+ Years (2 - PCV) [facility] Start: 06-20-2022 Pneumococcal Vaccine : 65+ Years (2 of 2 - PCV) Pneumococcal Vaccine: 65+ Years (2 of 2 - PCV) [facility] Start: 1995 Screening for malign ant neoplasm of breast Mammogram [facility] Start: 1955 Screening for malign ant neoplasm of colon [facility] Immunizations Immunization Date Immunization Notes Care Provider Vanessa higginbotham 10-10-2024 Pneumococcal Conjuga te PCV 20 Blu Kothari MD Work Phone: [facility] 10-03-2024 influenza, high dose seasonal, preservative-free Blu Kothari MD Work Phone: [facility] 08-07-2023 Influenza, Seasonal, Quadrivalent, Adjuvanted Blu Kothari MD Work Phone: [facility] 08-07-2023 influenza virus vacc ine, unspecified formulation Blu Kothari MD Work Phone: [facility] 11-10-2022 Influenza, High-dose Seasonal, Quadrivalent, Preservative Free Blu Kothari MD Work Phone: [facility] 03-02-2022 zoster vaccine recombinant Padma Kothari MD Work Phone: [facility] 11-30-2021 zoster vaccine recombinant Padma Kothari MD Work Phone: [facility] 09-04-2021 Influenza, High-dose Seasonal, Quadrivalent, Preservative Free Blu Kothari MD Work Phone: [facility] 06-20-2021 pneumococcal polysaccharide vaccine, 23 valent Blu Kothari MD Work Phone: [facility] 04-05-2021 tetanus toxoid, redu viridiana diphtheria toxoid, and acellular pertussis vaccine, adsorbed Blu Kothari MD Work Phone: [facility] 08-17-2020 Influenza, High-dose Seasonal, Quadrivalent, Preservative Free Blu Kothari MD Work Phone: [facility] Payers Date Payer Category Payer Self-pay 2023 Private Health Insurance [id number] 2023 Unknown [id number] 2022 Medicare 2022 Unknown 2022 Medicare [id number] 2022 Medicare [id number] 1959 Unknown [id number] 1955 Unknown [id number] [id number] 1955 Unknown [id number] 2.16.840.1.767969.3.579.2.196 1955 Unknown [id number] 2.16.840.1.786235.3.579.2.196 1955 Unknown [id number] 2.16.840.1.528103.3.579.2.196 1955 Unknown [id number] 2.16.840.1.258497.3.579.2.196 1955 Unknown [id number] 2.16.840.1.850549.3.579.2.1259 1955 Unknown [id number] 2.16.840.1.314479.3.579.2.1259 1955 Unknown [id number] 2.16.840.1.381535.3.579.2.1259 1955 Unknown [id number] 2.16.840.1.512146.3.579.2.1259 1955 Unknown [id number] 2.16.840.1.466558.3.579.2.125 1955 Unknown [id number] 2.16.840.1.241396.3.579.2.1259 1955 Unknown [id number] 2.16.840.1.205333.3.579.2.1259 1955 Unknown [id number] 2.16.840.1.095242.3.579.2.9 1955 Unknown [id number] 2.16.840.1.939446.3.579.2.1258 1955 Unknown [id number] 2.16.840.1.884827.3.579.2.1258 1955 Unknown [id number] 2.16.840.1.682553.3.579.2.1258 1955 Unknown [id number] 2.16.840.1.217204.3.579.2.1258 1955 Unknown [id number] 2.16.840.1.774522.3.579.2.1258 1955 Unknown [id number] 2.16.840.1.543106.3.579.2.1258 1955 Unknown [id number] 2.16.840.1.064385.3.579.2.1259 Private Health Insurance [facility] [id number] Unknown [id number] Social History Date Type Detail Facility Start: 07-03-[address] [facility] Never smoked tobacco [facility] Start: 07-03-2023 End: 07-27-2024 Tobacco use and exposure Smokeless tobacco non-user [facility] Start: 11-14-2023 End: 07-21-2024 Alcohol intake Ex-drinker (finding) [facility] Start: 08-01-2023 End: 03-25-2025 History of Social function [facility] Start: 08-01-2023 End: 03-25-2025 Tobacco use panel [facility] Start: 07-04-2023 Alcohol Comment caffeine: 1-2 cups per day [facility] Start: 1955 Sex Assigned At Not on file [facility] Start: 07-27-[address] [facility] Ex-smoker [facility] Work Phone: History of tobacco use Current smoker [facility] History of tobacco use Cigarette Smoker N [facility] Start: 08-20-2024 End: 03-25-2025 Alcoholic beverage intake Current drinker of alcohol (finding) [facility] Work Phone: Start: 03-19-2025 Sex Female (finding) [facility] Start: 1955 Sex Assigned At Female F [facility] Functional Status Date Assessment Result Facility 03-25-2025 Patient Health Quest ionnaire 2 item (PHQ-2) [Reported] [facility] 03-07-2025 Patient Health Quest ionnaire 2 item (PHQ-2) [Reported] [facility] Clinical Notes 12-29-2023 to 03-25-2025 Blu Kothari MD - 03/25/2025 9:00 AM Hung Kothari MD - 03/07/2025 9:15 AM Hung Kothari MD - 02/18/2025 9:00 AM MARIYA Bryan - 01/03/2025 10:45 AM ESTPatient Instructions Note Date & Type Note Facility 03-25-2025 History of Presen t illness Narrative Images from the original note were not included. Subjective Patient ID: Miguel Gonzalez is a 69 y.o. female who presents for back pain. Miguel presents today for a F/U for back pain and MRI results. She states she is still having back pain and really doesn't like taking the pain meds due to them making her constipated. Current Outpatient Medications on File Prior to Visit Medication Sig Dispense Refill alendronate (Fosamax) 70 MG tablet TAKE 1 TABLET EVERY 7 DAYS IN THE MORNING WITH A FULL GLASS OF WATER, ON AN EMPTY STOMACH, AND DO NOT TAKE ANYTHING ELSE OR LIE DOWN FOR THE NEXT 30 MINUTES 4 tablet 11 amLODIPine (Norvasc) 2.5 MG tablet TAKE 1 TABLET BY MOUTH EVERY DAY 30 tablet 13 aspirin 81 MG EC tablet Take 81 mg by mouth Daily CALCIUM-VITAMIN D PO Take by mouth Daily cyanocobalamin (Vitamin B-12) 1000 MCG tablet Take 1,000 mcg by mouth Daily meloxicam (Mobic) 15 MG tablet TAKE 1 TABLET BY MOUTH IN THE MORNING WITH FOOD 30 tablet 8 Multiple Vitamin (Multivitamin Adult) tablet Daily [place]-3 Fatty Acids (Fish Oil) 1000 MG capsule delayed-release Take by mouth Daily omeprazole (PriLOSEC) [address] capsule TAKE 1 CAPSULE BY MOUTH EVERY DAY IN THE MORNING before a meal 100 capsule 3 rosuvastatin (Crestor) 10 MG tablet TAKE 1 TABLET BY MOUTH EVERY DAY 30 tablet 13 traMADol (Ultram) 50 MG tablet Take 1 tablet (50 mg) by mouth every 6 (six) hours if needed for severe pain 60 tablet 1 zinc gluconate 50 MG tablet Take 25 mg by mouth in the morning. [DISCONTINUED] amLODIPine (Norvasc) 2.5 MG tablet TAKE 1 TABLET BY MOUTH EVERY DAY FOR 100 DAYS 30 tablet 13 No current facility-administered medications on file prior to visit. I have reviewed and reconciled the history and medication list with the patient today. Allergies Allergen Reactions Marcio Inhibitors Cough Social History Tobacco Use Smoking status: Former Types: Cigarettes Smokeless tobacco: Never Vaping Use Vaping status: Never Used Substance Use Topics Alcohol use: Yes Comment: caffeine: 1-2 cups per day Drug use: Never Family History Problem Relation Name Age of Onset Dementia Mother Heart disease Father Diabetes Father Stomach cancer Father Past Medical History: Diagnosis Date 'Tygul-rhx-yhiao' infant with signs of malnutrition Arthritis Cervical spondylolysis GERD (gastroesophageal reflux disease) Hypertension (CMS/HCC) Shingles Past Surgical History: Procedure Laterality Date APPENDECTOMY EGD 2012 HYSTERECTOMY IR NERVE BLOCK PROCEDURE Bilateral 09/01/2023 L4-S1 RADIOFREQUENCY ABLATION Bilateral 11/10/2023 L4-S1 SHOULDER ARTHROSCOPY W/ ROTATOR CUFF REPAIR Right 10/20/2024 W/ SAD ; DR WAITE TRIGGER FINGER RELEASE Right 2019 RF Visit Vitals BP (!) 164/102 Pulse 68 Resp 16 Ht 4' 9 Wt 123 lb 14.4 oz SpO2 98% BMI 26.81 kg/m Smoking Status Former BSA 1.5 m Review of Systems Objective Physical Exam Constitutional: General: She is not in acute distress. Appearance: Normal appearance. She is well-developed. HENT: Head: Normocephalic and atraumatic. Eyes: General: No scleral icterus. Conjunctiva/sclera: Conjunctivae normal. Cardiovascular: Rate and Rhythm: Normal rate and regular rhythm. Heart sounds: Normal heart sounds. No murmur heard. Pulmonary: Effort: Pulmonary effort is normal. No respiratory distress. Breath sounds: Normal breath sounds. No wheezing, rhonchi or rales. Musculoskeletal: Lumbar back: Spasms and tenderness present. No deformity. Normal range of motion. Negative right straight leg raise test and negative left straight leg raise test. No scoliosis. Skin: General: Skin is warm and dry. Neurological: General: No focal deficit present. Mental Status: She is alert and oriented to person, place, and time. Motor: No weakness. Gait: Gait normal. Deep Tendon Reflexes: Reflexes normal. Psychiatric: Mood and Affect: Mood normal. Behavior: Behavior normal. Assessment/Plan Diagnoses and all orders for this visit: Lumbosacral spondylosis with radiculopathy - Ambulatory referral to Pain Medicine; Future - MRI discussed in detail. Back does not look surgical at this time. - This office visit was spent in consultation regarding the patient's current medical problems, differential diagnoses, testing/imaging results, and treatment options. Greater than 25 minutes was spent in [id number] consultation and coordination of care. Follow up in about 6 months (around 09/25/2025) for Routine F/U. documented in this encounter [facility] 03-07-2025 History of Presen t illness Narrative Images from the original note were not included. HPI Results Additional comments: Ct scan Last edited by Valery Guardado LPN on 03/07/2025 9:18 AM. Subjective Patient ID: Miguel Gonzalez is a 69 y.o. female who presents for Flank Pain and Results (Ct scan). Back Pain Patient presents for evaluation of low back problems. Symptoms have been present for 4 months and include pain in right lowback/flank Initial inciting event: none. Alleviating factors identifiable by the patient are medication Tramadol. Pt completed CT scan as ordered aggravating factors: movement,increased activity. Also seems to be worse in AM until she gets moving per pt Flank Pain Pertinent negatives include no chest pain. Hypertension Pertinent negatives include no chest pain, palpitations or shortness of breath. Back Pain Pertinent negatives include no chest pain. Current Outpatient Medications on File Prior to Visit Medication Sig Dispense Refill alendronate (Fosamax) 70 MG tablet TAKE 1 TABLET EVERY 7 DAYS IN THE MORNING WITH A FULL GLASS OF WATER, ON AN EMPTY STOMACH, AND DO NOT TAKE ANYTHING ELSE OR LIE DOWN FOR THE NEXT 30 MINUTES 4 tablet 11 amLODIPine (Norvasc) 2.5 MG tablet TAKE 1 TABLET BY MOUTH EVERY DAY FOR 100 DAYS 30 tablet 13 aspirin 81 MG EC tablet Take 81 mg by mouth Daily CALCIUM-VITAMIN D PO Take by mouth Daily cyanocobalamin (Vitamin B-12) 1000 MCG tablet Take 1,000 mcg by mouth Daily meloxicam (Mobic) 15 MG tablet TAKE 1 TABLET BY MOUTH IN THE MORNING WITH FOOD 30 tablet 8 Multiple Vitamin (Multivitamin Adult) tablet Daily [place]-3 Fatty Acids (Fish Oil) 1000 MG capsule delayed-release Take by mouth Daily omeprazole (PriLOSEC) [address] capsule Take 1 capsule (40 mg) by mouth in the morning. Take before meals. 100 capsule 3 rosuvastatin (Crestor) 10 MG tablet TAKE 1 TABLET BY MOUTH EVERY DAY 30 tablet 13 traMADol (Ultram) 50 MG tablet Take 1 tablet (50 mg) by mouth every 6 (six) hours if needed for severe pain 60 tablet 1 zinc gluconate 50 MG tablet Take 25 mg by mouth in the morning. No current facility-administered medications on file prior to visit. I have reviewed and reconciled the history and medication list with the patient today. Allergies Allergen Reactions Marcio Inhibitors Cough Social History Tobacco Use Smoking status: Former Types: Cigarettes Smokeless tobacco: Never Vaping Use Vaping status: Never Used Substance Use Topics Alcohol use: Yes Comment: caffeine: 1-2 cups per day Drug use: Never Family History Problem Relation Name Age of Onset Dementia Mother Heart disease Father Diabetes Father Stomach cancer Father Past Medical History: Diagnosis Date 'Lghbd-oqk-opgsl' with signs of malnutrition Arthritis Cervical spondylolysis GERD (gastroesophageal reflux disease) Hypertension (CMS/HCC) Shingles Past Surgical History: Procedure Laterality Date APPENDECTOMY EGD 2012 HYSTERECTOMY IR NERVE BLOCK PROCEDURE Bilateral 09/01/2023 L4-S1 RADIOFREQUENCY ABLATION Bilateral 11/10/2023 L4-S1 SHOULDER ARTHROSCOPY W/ ROTATOR CUFF REPAIR Right 10/20/2024 W/ SAD ; DR WAITE TRIGGER FINGER RELEASE Right 2019 RF Visit Vitals BP 128/76 Pulse 70 Ht 4' 9 Wt 123 lb SpO2 99% BMI 26.62 kg/m Smoking Status Former BSA 1.5 m Review of Systems Respiratory: Negative for shortness of breath. Cardiovascular: Negative for chest pain and palpitations. Genitourinary: Positive for flank pain. Musculoskeletal: Positive for back pain. Objective Physical Exam Constitutional: General: She is not in acute distress. Appearance: Normal appearance. She is well-developed. HENT: Head: Normocephalic and atraumatic. Eyes: General: No scleral icterus. Conjunctiva/sclera: Conjunctivae normal. Cardiovascular: Rate and Rhythm: Normal rate and regular rhythm. Heart sounds: Normal heart sounds. No murmur heard. Pulmonary: Effort: Pulmonary effort is normal. No respiratory distress. Breath sounds: Normal breath sounds. No wheezing, rhonchi or rales. Skin: General: Skin is warm and dry. Neurological: General: No focal deficit present. Mental Status: She is alert and oriented to person, place, and time. Psychiatric: Mood and Affect: Mood normal. Behavior: Behavior normal. Assessment/Plan Diagnoses and all orders for this visit: Lumbosacral spondylosis with radiculopathy - MR lumbar spine wo contrast; Future Right flank pain, chronic Other idiopathic scoliosis, thoracolumbar region - MR lumbar spine wo contrast; Future Lumbar disc narrowing - MR lumbar spine wo contrast; Future - Seen on CT - Has failed PT and Pain Mgmt, this is an ongoing issue. Follow up in about 3 weeks (around 03/28/2025) for Test/Lab Review. documented in this encounter [facility] 02-18-2025 History of Presen t illness Narrative Images from the original note were not included. HPI Follow-up Additional comments: Pain med Last edited by Valery Guardado LPN on 02/18/2025 9:08 AM. Subjective Patient ID: Miguel Gonzalez is a 69 y.o. female who presents for Follow-up (Pain med), Hypertension, and Back Pain. REFILL- TRAMADOL Hypertension Patient is here for follow-up of elevated blood pressure. She is exercising \Blood pressure is well controlled at home. Cardiac symptoms: none. Patient denies chest pain, claudication, lower extremity edema, near-syncope, orthopnea, palpitations, paroxysmal nocturnal dyspnea, syncope, and tachypnea. Cardiovascular risk factors: advanced age (older than 55 for men, 65 for women) and hypertension. Back Pain Patient presents for evaluation of low back problems. Symptoms have been present for 4 months and include pain in right lowback/flank Initial inciting event: none. Alleviating factors identifiable by the patient are medication Tramadol. Pt states she also has urgency Hypertension Pertinent negatives include no chest pain, palpitations or shortness of breath. Back Pain Pertinent negatives include no chest pain. Current Outpatient Medications on File Prior to Visit Medication Sig Dispense Refill alendronate (Fosamax) 70 MG tablet TAKE 1 TABLET EVERY 7 DAYS IN THE MORNING WITH A FULL GLASS OF WATER, ON AN EMPTY STOMACH, AND DO NOT TAKE ANYTHING ELSE OR LIE DOWN FOR THE NEXT 30 MINUTES 4 tablet 11 amLODIPine (Norvasc) 2.5 MG tablet TAKE 1 TABLET BY MOUTH EVERY DAY FOR 100 DAYS 30 tablet 13 aspirin 81 MG EC tablet Take 81 mg by mouth in the morning. CALCIUM-VITAMIN D PO Take by mouth Daily. cyanocobalamin (Vitamin B-12) 1000 MCG tablet Take 1,000 mcg by mouth in the morning. meloxicam (Mobic) 15 MG tablet TAKE 1 TABLET BY MOUTH IN THE MORNING WITH FOOD 30 tablet 8 Multiple Vitamin (Multivitamin Adult) tablet Daily. [place]-3 Fatty Acids (Fish Oil) 1000 MG capsule delayed-release Take by mouth Daily. omeprazole (PriLOSEC) [address] capsule Take 1 capsule (40 mg) by mouth in the morning. Take before meals. 100 capsule 3 rosuvastatin (Crestor) 10 MG tablet TAKE 1 TABLET BY MOUTH EVERY DAY 30 tablet 13 zinc gluconate 50 MG tablet Take 25 mg by mouth in the morning. [DISCONTINUED] traMADol (Ultram) 50 MG tablet Take 50 mg by mouth every 6 (six) hours if needed for severe pain No current facility-administered medications on file prior to visit. I have reviewed and reconciled the history and medication list with the patient today. Allergies Allergen Reactions Marcio Inhibitors Cough Social History Tobacco Use Smoking status: Former Types: Cigarettes Smokeless tobacco: Never Vaping Use Vaping status: Never Used Substance Use Topics Alcohol use: Yes Comment: caffeine: 1-2 cups per day Drug use: Never Family History Problem Relation Name Age of Onset Dementia Mother Heart disease Father Diabetes Father Stomach cancer Father Past Medical History: Diagnosis Date 'Dwanr-pha-djnor' with signs of malnutrition Arthritis Cervical spondylolysis GERD (gastroesophageal reflux disease) Hypertension (CMS/HCC) Shingles Past Surgical History: Procedure Laterality Date APPENDECTOMY EGD 2012 HYSTERECTOMY IR NERVE BLOCK PROCEDURE Bilateral 09/01/2023 L4-S1 RADIOFREQUENCY ABLATION Bilateral 11/10/2023 L4-S1 SHOULDER ARTHROSCOPY W/ ROTATOR CUFF REPAIR Right 10/20/2024 W/ SAD ; DR WAITE TRIGGER FINGER RELEASE Right 2019 RF Visit Vitals BP 132/74 Pulse 72 Ht 4' 9 Wt 124 lb SpO2 98% BMI 26.83 kg/m Smoking Status Former BSA 1.5 m Review of Systems Respiratory: Negative for shortness of breath. Cardiovascular: Negative for chest pain and palpitations. Musculoskeletal: Positive for back pain. Objective Physical Exam Constitutional: General: She is not in acute distress. Appearance: Normal appearance. She is well-developed. HENT: Head: Normocephalic and atraumatic. Eyes: General: No scleral icterus. Conjunctiva/sclera: Conjunctivae normal. Cardiovascular: Rate and Rhythm: Normal rate and regular rhythm. Heart sounds: Normal heart sounds. No murmur heard. Pulmonary: Effort: Pulmonary effort is normal. No respiratory distress. Breath sounds: Normal breath sounds. No wheezing, rhonchi or rales. Skin: General: Skin is warm and dry. Neurological: General: No focal deficit present. Mental Status: She is alert and oriented to person, place, and time. Psychiatric: Mood and Affect: Mood normal. Behavior: Behavior normal. Office Visit on 02/18/2025 Component Date Value Ref Range Status Glucose, UA 02/18/2025 Negative Negative - 1999(110) ++++ mg/dL Final Bilirubin, UA 02/18/2025 Negative Negative - (70) +++ mg/dL Final Ketones, UA 02/18/2025 Negative Negative - 160(16) ++++ mg/dL Final Spec Grav, UA 02/18/2025 1.005 1 - 1.03 Final Blood, UA 02/18/2025 Negative Negative - 50 Tan/mcL Final pH, UA 02/18/2025 6.5 5 - 9 Final Protein, UA 02/18/2025 Negative Negative - 1999(20) ++++ mg/dL Final Urobilinogen, UA 02/18/2025 0.2 0.2 - 12 mg/dL Final Leukocytes, UA 02/18/2025 Negative Negative - 500+++ [place]/mcL Final Nitrite, UA 02/18/2025 Negative Negative - Positive Final Assessment/Plan Diagnoses and all orders for this visit: Lumbosacral spondylosis with radiculopathy - traMADol (Ultram) 50 MG tablet; Take 1 tablet (50 mg) by mouth every 6 (six) hours if needed for severe pain Right flank pain, chronic - POCT Urinalysis dipstick - CT abdomen pelvis w IV contrast; Future - Creatinine, Serum; Future Follow up in about 2 weeks (around 03/04/2025) for Test/Lab Review. documented in this encounter [facility] 01-03-2025 History of Presen t illness Narrative Images from the original note were not included. HISTORY OF PRESENT ILLNESS: POST OP PT Miguel Gonzalez is an 69 y.o. @ female. (EST PT) - S/P (R) SHOULDER SCOPE 10/20/24 (10 WKS, 5 DAYS) ; RECHECK ROM S/P [facility] PT PT @[facility] (PROGRESS NOTE IN EPIC 12/31/24) CONTINUES PT @[facility]. DOING WELL. CONTINUES HEP. ROM / STRENGTH IMPROVING. PRESENTS WITHOUT SLING. STIFFNESS / MINIMAL DISCOMFORT IN THE MORNINGS / AFTER PT / OVERUSE. DENIES SWELLING. DENIES ICING / HEATING. PERCOCET PRN - 6 TABS LEFT. PT WOULD LIKE TO DISCUSS A PERCOCET RX FOR DISCOMFORT REVIEW OF SYSTEMS: General: Denies fever, fatigue or weight loss Lungs: Denies SOB Cardio: Denies chest pain GI: Denies indigestion or abdominal pain Neuro: Denies numbness or tingling, denies new onset paralysis Musculoskeletal: ( see note) PHYSICAL EXAM: Right Shoulder Exam Tenderness The patient is experiencing no tenderness (compartments soft). Range of Motion Active abduction: 170 Passive abduction: 170 (gentle pendulums easily) Extension: 60 External rotation: 80 Forward flexion: 180 Internal rotation 0 degrees: T10 Muscle Strength Right shoulder normal muscle strength: Fires deltoid and rotator cuff. Abduction: 4/5 Internal rotation: 5/5 External rotation: 5/5 Supraspinatus: 4/5 Subscapularis: 5/5 Biceps: 5/5 Other Erythema: absent Scars: absent (portals well healed) Sensation: normal Pulse: present Comments: The operative upper extremity was noted to be neurovascularly unchanged. Sensation to light touch was intact to all dermatomes to operative upper extremity. Radial and ulnar pulses were present and equal bilaterally. Patient was able to motor elbow wrist and fingers in all anatomic planes with 5 out of 5 strength on the operative upper extremity. Compartments were soft to operative upper extremity. There was no evidence of infection or ascending lymphangitis to operative extremity. Procedures Orders Placed This Encounter Procedures Ambulatory referral to Physical Therapy Standing Status: Future Standing Expiration Date: 07/03/2025 Referral Priority: Routine Referral Type: Consultation Referral Reason: Specialty Services Required Referral Location: [facility] Requested Specialty: Physical Therapy Number of Visits Requested: 1 ASSESSMENT: ICD-10-CM 1. S/P arthroscopy of right shoulder Z98.890 Ambulatory referral to Physical Therapy S/p rotator cuff repair and SAD Assessment & Plan 1. Right shoulder pain status post right shoulder arthroscopy with rotator cuff repair. She demonstrates full active and passive range of motion and reports minimal discomfort. Given her length of symptoms, she has 5 tablets still at home. A Percocet refill is not recommended at this time. It was discussed that she should not be using these for just mild pain. She will continue with therapy for an additional 2 weeks to work on strengthening exercises, avoiding whipping motions. She will need to continue the strengthening exercises on her own for optimal outcome. She will avoid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 information availableJ.W. [facility] Work Phone: Evaluation note* Diagnosis Lumbosacral spondylosis with radiculopathy- Primary documented in this encounter [facility] HealthcareReason for referral (narrative)* Consultation (Routine) - Pending Review Specialty Diagnoses / Procedures Referred By Contact Referred To Contact Orthopaedic Surgery Diagnoses Shoulder capsulitis, right Blu Kothari MD [address] [facility] [address] [place] [address] April Mercedes PA [address] [facility] [address] [place] [address] Referral ID Status Reason Start Date Expiration Date Visits Requested Visits Authorized [id number] Pending Review Specialty Services Required 07/21/2024 01/17/2025 1 1 [facility] Summary Purpose Family History No Family History Records FoundNo Family History Records FoundNo Family History Records FoundNo Family History Records FoundNo Family History Records FoundNo Family History Records Found Advance Directives No Advanced Directives Records Found Advance Directive Response Recorded Date/ Time Advance Directives No March 17, 2 025 3:48pm Reason for Referral Specialty Diagnoses / Procedures Referred By Lorne brown Referred To Contact Radiology Diagnoses Internal derangement of right shoulder Procedures MR shoulder right wo IV contrast Isabel Catherine, CIRCUITRY NEGATIVE INSPECTOR [address] [place] [address] [address] [place] [address] Referral ID Status Reason Start Date Expiration Date V isits Requested Visits Authorized [id number] Authorized 07/27/2024 01/23/2025 1 1 Chief Complaint and Reason for Visit Chief Complaint Admit Date M47.27 M41.25 M51.369 March 18, 2025 1 0:57am Additional Source Comments INFORMATION SOURCE (unrecogn ized section and content) DATE CREATED AUTHOR 12/29/2020 [facility] DATE CREATED AUTHOR AUTHOR'S ORGANIZ ATION 07/09/2021 Carvalho [facility] DATE CREATED AUTHOR AUTHOR'S ORGANIZ ATION 11/14/2023 [facility] DATE CREATED AUTHOR AUTHOR'S ORGANIZ ATION 02/26/2025 [facility] DATE CREATED AUTHOR AUTHOR'S ORGANIZ ATION 03/30/2025 [facility] DATE CREATED AUTHOR AUTHOR'S ORGANIZ ATION 04/09/2025 [facility] Reason for Visit (unrecogniz ed section and content) Reason Comments Med Refill Reason Comments Pain Reason Comments Pain Post-op Reason Comments Follow-up Pain med Hypertension Shoulder Pain Med Refill Tr[facility]adol[facility] Reason Comments Pain Reason Onset Date Comments Surgery 08/23/2024 Reason Comments Post-op Reason Comments Follow-up Pain med Hypertension Back Pain Reason Comments Flank Pain Results Ct scan Care Teams (unrecognized sec tion and content) Configuration Developer Relationship Specialty Start Date End Date Blu Kothari MD [address] [facility] [address] [place] [address] PCP - General Internal Medicine 04/01/23 Configuration Developer Relationship Specialty Start Date End Date Blu Kothari MD [address] [facility] [address] [place] [address] PCP - General Internal Medicine 04/01/23 Configuration Developer Relationship Specialty Start Date End Date Blu Kothari MD [address] [facility] [address] [place] [address] PCP - General Internal Medicine 04/01/23 Configuration Developer Relationship Specialty Start Date End Date Blu Kothari MD [address] [facility] [address] [place] [address] PCP - General Internal Medicine 04/01/23 Configuration Developer Relationship Specialty Start Date End Date Blu Kothari MD [address] [facility] [address] [place] [address] PCP - General Internal Medicine 04/01/23 Configuration Developer Relationship Specialty Start Date End Date Blu Kothari MD [address] [facility] [address] [place] [address] PCP - General Internal Medicine 04/01/23 Configuration Developer Relationship Specialty Start Date End Date Blu Kothari MD [address] [facility] [address] [place] [address] PCP - General Internal Medicine 04/01/23 Configuration Developer Relationship Specialty Start Date End Date Blu Kothari MD [address] [facility] [address] [place] [address] PCP - General Internal Medicine 04/01/23 Configuration Developer Relationship Specialty Start Date End Date Blu Kothari MD [address] [facility] [address] [place] [address] PCP - General Internal Medicine 04/01/23 Configuration Developer Relationship Specialty Start Date End Date Blu Kothari MD [address] [facility] [address] [place] [address] PCP - General Internal Medicine 04/01/23 Configuration Developer Relationship Specialty Start Date End Date Blu Kothari MD [address] [facility] [address] [place] [address] PCP - General Internal Medicine 04/01/23 Configuration Developer Relationship Specialty Start Date End Date Blu Kothari MD [address] [facility] [address] [place] [address] PCP - General Internal Medicine 04/01/23 Configuration Developer Relationship Specialty Start Date End Date Blu Kothari MD [address] [facility] [address] [place] [address] PCP - General Internal Medicine 04/01/23 Blu Kothari MD [address] [facility] [address] [place] [address] PCP - ACO Reach 12/31/24 Configuration Developer Relationship Specialty Start Date End Date Blu Kothari MD [address] [facility] [address] [place] [address] PCP - General Internal Medicine 04/01/23 Blu Kothari MD [address] [facility] [address] [place] [address] PCP - ACO Reach 12/31/24 Configuration Developer Relationship Specialty Start Date End Date Blu Kothari MD [address] [facility] [address] [place] [address] PCP - General Internal Medicine 04/01/23 Blu Kothari MD [address] [facility] [address] [place] [address] PCP - ACO Reach 12/31/24 Configuration Developer Relationship Specialty Start Date End Date Blu Kothari MD [address] [facility] [address] [place] [address] PCP - General Internal Medicine 04/01/23 Blu Kothari MD [address] [facility] [address] [place] [address] PCP - ACO Reach 12/31/24 Configuration Developer Relationship Specialty Start Date End Date Blu Kothari MD [address] [facility] [address] [place] [address] PCP - General Internal Medicine 04/01/23 Blu Kothari MD [address] [facility] [address] [place] [address] PCP - ACO Reach 12/31/24 Configuration Developer Relationship Specialty Start Date End Date Blu Kothari MD [address] [facility] [address] [place] [address] PCP - General Internal Medicine 04/01/23 Blu Kothari MD [address] [facility] [address] [place] [address] PCP - ACO Reach 12/31/24 Team Status: Active Member Role Status Dates Blu Kothari II MD Primary Care Provider Active Team Status: Inactive Member Role Status Dates Blu Kothari II MD Primary Care Provid er, Attending Provider Active Start: March 18, 2025 End: March 18, 2025 Configuration Developer Relationship Specialty Start Date End Date Blu Kothari MD [address] [facility] [address] [place] [address] PCP - General Internal Medicine 04/01/23 Blu Kothari MD [address] [facility] [address] [place] [address] PCP - ACO Reach 12/31/24 Goals (unrecognized section and content) Goals may be documented in a n alternate section FOR RECORDS PERTAINING TO PATIENTS WHO ARE [...] BE BASED ON THE PRIMARY CLINICAL RECORDS. [employer] [facility]. provides no warranty or guarantee of the accuracy or completeness of information in this document.
--- NOTE | 2025-04-13 07:52 | PM.CN ---
Consult Note: HPI Data of Consult Patient: known to practice within the last 3 years Requesting Physician: Tierney Kohli NP Primary Care Provider: CLAY TAVERAS Consult Narrative Reason for consult: back pain Narrative: Patricia Gonzalez a pleasant 69 year old female with chronic thoracic and lumbar pain presents for evaluation. Last seen 12/17 after lumbar RFA with significant improvement in axial facet mediated pain ongoing. Pt has noticed over the last 6 months increasing right low back and leg pain. Pain today 5/10, hurts , increasing with standing, walking, housework, activity. pain improved with sitting, lying, hot tub, and sleep. pt currently on mobic 15mg daily and tramadol 50mg PRN through PCP without side effects. continues to engage in HEP without benefit. Pain increasing to 10/10 at the worst. cc:: CC: Tierney Kohli NP Review of Systems ROS Musculoskeletal Reports: back pain, extremity pain and joint pain PFSH PFSH Medical History Low back pain ?M54.50 - Low back pain, unspecified (ICD-10) Osteoarthritis ?M19.90 - Unspecified osteoarthritis, unspecified site (ICD-10) Acid reflux ?K21.9 - Gastro-esophageal reflux disease without esophagitis (ICD-10) High cholesterol ?E78.00 - Pure hypercholesterolemia, unspecified (ICD-10) Hypertension ?I10 - Essential (primary) hypertension (ICD-10) Surgical History History of hysterectomy ?Z90.710 - Acquired absence of both cervix and uterus (ICD-10) History of appendectomy ?Z90.49 - Acquired absence of other specified parts of digestive tract (ICD-10) Social History Smoking status: Former smoker Meds Home Medications and Allergies Home Medications ?Medication ?Instructions ?Recorded ?Confirmed ?Type amlodipine 2.5 mg tablet 2.5 mg PO DAILY 08/04/23 11/10/23 History aspirin 81 mg tablet,delayed 81 mg PO DAILY 08/04/23 11/10/23 History release (Adult Aspirin Regimen) diphenhydramine HCl 50 mg capsule 50 mg PO DAILY PRN sleep 08/04/23 11/10/23 History (Nightime Sleep) ginkgo biloba 40 mg tablet 120 mg PO DAILY 08/04/23 11/10/23 History magnesium 250 mg tablet 500 mg PO DAILY 08/04/23 11/10/23 History meloxicam 15 mg tablet 15 mg PO DAILY 08/04/23 11/10/23 History xepnhnfk-gka-aiit-FA-Ca carb-vit K 1 tab PO DAILY 08/04/23 11/10/23 History 18 mg iron-400 mcg-500 mg tablet (One-A-Day Womens Formula) omega 4-ivd-tkh-fish oil 1,000 mg 1 cap PO BID 08/04/23 11/10/23 History (120 mg-180 mg) capsule (Fish Oil) omeprazole 40 mg capsule,delayed 40 mg PO DAILY 08/04/23 11/10/23 History release rosuvastatin 10 mg tablet (Crestor) 10 mg PO DAILY 08/04/23 11/10/23 History turmeric 400 mg capsule 400 mg PO BID 08/04/23 11/10/23 History vitamin B complex (Complex B-100 1 tab PO DAILY 08/04/23 11/10/23 History tablet,extended release) zinc 50 mg capsule 50 mg PO DAILY 08/04/23 11/10/23 History methocarbamol 750 mg tablet 750 mg PO Q6H PRN pain #30 tabs 11/04/23 11/10/23 Rx Allergies Allergy/AdvReac Type Severity Reaction Status Date / Time No Known Drug Allergies Allergy Verified 11/10/23 10:22 Exam Constitutional Documenting provider has reviewed patient's vital signs: yes Common normals: no apparent distress, oriented x3, healthy appearing, alert and well nourished General appearance: cooperative [facility] Common normals: normocephalic, hearing grossly normal bilaterally and moist oral mucous membranes Head and scalp: normocephalic Eye Common normals: PERRL Pupil: PERRL Neck & C-Spine Common normals: full ROM General: normal visual inspection Chest Common normals: inspection of chest normal Respiratory Common normals: normal respiratory effort, no retractions and no use of accessory muscles Back & Pelvis Thoracic spine/upper back: ROM limited, pain with ROM and thoracic spinal tenderness Lumbar spine/lower back: ROM limited, pain with ROM, lumbar spinal tenderness and straight leg raise positive right Sacroiliac joints: SI joint(s) abnormal Other: right positive allen(patricks), gaenslens, thigh thrust, compression test decreased sensation to right L4,5,S1 strength 4/5 in RLE and 5/5 in LLE Neuro Common normals: oriented x3 Sensorium/orientation: alert Psych Common normals: mental status grossly normal, thought process normal, cooperative, affect normal, speech normal and activity/motor behavior normal Speech: normal speech Thought process: normal thought process Assessment and Plan Assessment and Plan (1) Lumbar stenosis with neurogenic claudication: (2) Sacroiliitis: (3) Thoracic scoliosis: (4) Lumbar spondylosis: (5) Myofascial pain: Plan 69 year old female with chronic thoracic and lumbar pain > 3 years unresponsive to >6 weeks of PT/provider guided HEP, heat, ice, tylenol, NSAIDs. thoracic xray consistent with degenerative changes and scoliosis, lumbar xray and MRI consistent with multilevel degenerative changes and stenosis. Pt continues to have moderate to severe right low back and leg pain with numbness tingling weakness. recommend pt undergo right L4,5 L5,S1 TFESI under fluoroscopy for lumbar stenosis with NC, may further more consider a right SIJ injection for sacroiliac joint pain. will order TLSO back brace for chronic multilevel back pain and scoliosis, to be worn when performing ADLs and strenuous activities but as instructed to pt today she should not wear for extended periods of time or sleep. medications reviewed, no changes. f/u 2 weeks after injection.
== END 2025-04-13 07:24 | disposition home or self-care (01) ==
PROVIDERS: PCP Internal Medicine; Visit Provider Nurse Practitioner
DX: M48.062 Spinal stenosis, lumbar region with neurogenic claudication (principal); M46.1 Sacroiliitis, not elsewhere classified; M41.84 Other forms of scoliosis, thoracic region; M47.816 Spondylosis without myelopathy or radiculopathy, lumbar region; M79.18 Myalgia, other site
CPT/HCPCS: G0463

== ENCOUNTER 2025-05-02 06:42 | Day surgery (SDC) | payer OTHER, MEDICARE, SELFPAY ==
--- OUTSIDE RECORDS SUMMARY | 2025-05-02 06:46 | XMS_ITS | Encounter Summary ---
Author Organization [facility] Address [address] [facility] [place] [address] Care Team Providers Care Backend Tester Name Role Phone Blu Kothari MD Primary Care Provider [phone] Blu Kothari MD Unavailable [phone] Encounter Details Date Type Department Care Team (Late st Contact Info) Description 09/29/2023 Abstract [facility] [address] [facility] [address] [place] [id number] Blu Kothari MD [address] [facility] [address] [place] [address] Social History Tobacco Use Types Packs/Day Years Used Date Smoking Tobacco: Never Smokeless Tobacco: Never Alcohol Use Standard Drinks/Week Comments Not Currently 0 (1 standard drink = 0.6 oz pur e alcohol) caffeine: 1-2 cups per day PHQ-2 Answer Date Recorded Patient Health Questionnaire-2 Score 0 08/01/2023 Comments Unknown Sex and Gender Information Value Date Recorded Sex Assigned at Not on file Legal Sex Female 7:17 PM EDT Gender Identity Not on file Sexual Orientation Not on file documented as of this encounter Plan of Treatment Not on file documented as of this encounter Visit Diagnoses Not on filedocumented in this encounter Care Teams Backend Tester Relationship Specialty Start Date End Date Blu Kothari MD [address] [facility] [address] [place] [address] PCP - General Internal Medicine 04/01/23 Blu Kothari MD [address] [facility] [address] [place] [address] PCP - ACO Reach 12/31/24 04/26/25 documented as of this encounter
--- OUTSIDE RECORDS SUMMARY | 2025-05-02 06:46 | XMS_ITS | Encounter Summary ---
Author Organization [facility] Address [address] [facility] [place] [address] Care Team Providers Care Ruby Rails Developer Name Role Phone Blu Kothari MD Primary Care Provider [phone] Blu Kothari MD Unavailable [phone] Encounter Details Date Type Department Care Team (Late st Contact Info) Description 09/11/2023 Abstract [facility] [address] [facility] [address] [place] [phone] Blu Kothari MD [address] [facility] [address] [place] [address] Social History Tobacco Use Types Packs/Day Years [...] on filedocumented in this encounter Care Teams Ruby Rails Developer Relationship Specialty Start Date End Date Blu Kothari MD [address] [facility] [address] [place] [address] PCP - General Internal Medicine 04/01/23 Blu Kothari MD [address] [facility] [address] [place] [address] PCP - ACO Reach 12/31/24 04/26/25 documented as of this encounter
--- OUTSIDE RECORDS SUMMARY | 2025-05-02 06:46 | XMS_ITS | Encounter Summary ---
Author Organization [facility] Address [address] [facility] [place] [address] Care Team Providers Care Filter Pulp Washer Name Role Phone Blu Kothari MD Primary Care Provider [phone] Blu Kothari MD Unavailable [phone] Encounter Details Date Type Department Care Team (Late st Contact Info) Description 10/09/2023 Abstract [facility] [address] [facility] [address] [place] [phone] Blu Kothari MD [address] [facility] [address] [place] [address] Social History Tobacco Use Types Packs/Day Years [...] on filedocumented in this encounter Care Teams Filter Pulp Washer Relationship Specialty Start Date End Date Blu Kothari MD [address] [facility] [address] [place] [address] PCP - General Internal Medicine 04/01/23 Blu Kothari MD [address] [facility] [address] [place] [address] PCP - ACO Reach 12/31/24 04/26/25 documented as of this encounter
--- OUTSIDE RECORDS SUMMARY | 2025-05-02 06:46 | XMS_ITS | Encounter Summary ---
Author Organization [facility] Address [address] [facility] [place] [address] Care Team Providers Care Milk Condenser Name Role Phone Blu Kothari MD Primary Care Provider [phone] Blu Kothari MD Unavailable [phone] Encounter Details Date Type Department Care Team (Late st Contact Info) Description 09/01/2023 Abstract [facility] [address] [facility] [address] [place] [phone] Blu Kothari MD [address] [facility] [address] [place] [address] Social History Tobacco Use Types Packs/Day Years [...] on filedocumented in this encounter Care Teams Milk Condenser Relationship Specialty Start Date End Date Blu Kothari MD [address] [facility] [address] [place] [address] PCP - General Internal Medicine 04/01/23 Blu Kothari MD [address] [facility] [address] [place] [address] PCP - ACO Reach 12/31/24 04/26/25 documented as of this encounter
--- OUTSIDE RECORDS SUMMARY | 2025-05-02 06:46 | XMS_ITS | Encounter Summary ---
Author Organization [facility] Address [address] [facility] [place] [address] Care Team Providers Care Or Nurse Manager Name Role Phone Blu Kothari MD Primary Care Provider [phone] Blu Kothari MD Unavailable [phone] Encounter Details Date Type Department Care Team (Late st Contact Info) Description 08/04/2023 Abstract [facility] [address] [facility] [address] [place] [phone] Blu Kothari MD [address] [facility] [address] [place] [address] Social History Tobacco Use Types Packs/Day Years [...] on filedocumented in this encounter Care Teams Or Nurse Manager Relationship Specialty Start Date End Date Blu Kothari MD [address] [facility] [address] [place] [address] PCP - General Internal Medicine 04/01/23 Blu Kothari MD [address] [facility] [address] [place] [address] PCP - ACO Reach 12/31/24 04/26/25 documented as of this encounter
--- OUTSIDE RECORDS SUMMARY | 2025-05-02 06:46 | XMS_ITS | Encounter Summary ---
Author Organization [facility] Address [address] [facility] [place] [address] Care Team Providers Care Dry Starch Operator Name Role Phone Blu Kothari MD Primary Care Provider [phone] Blu Kothari MD Unavailable [phone] Encounter Details Date Type Department Care Team (Late st Contact Info) Description 11/04/2023 Abstract [facility] [address] [facility] [address] [place] [id number] Blu Kothari MD [address] [facility] [address] [place] [address] Social History Tobacco Use Types Packs/Day Years [...] on filedocumented in this encounter Care Teams Dry Starch Operator Relationship Specialty Start Date End Date Blu Kothari MD [address] [facility] [address] [place] [address] PCP - General Internal Medicine 04/01/23 Blu Kothari MD [address] [facility] [address] [place] [address] PCP - ACO Reach 12/31/24 04/26/25 documented as of this encounter
--- OUTSIDE RECORDS SUMMARY | 2025-05-02 06:46 | XMS_ITS | Encounter Summary ---
Author Organization [facility] Address [address] [facility] [place] [address] Care Team Providers Care Marine Fisheries Technician Name Role Phone Blu Kothari MD Primary Care Provider [phone] Blu Kothari MD Unavailable [phone] Encounter Details Date Type Department Care Team (Late st Contact Info) Description 07/04/2023 Abstract [facility] [address] [facility] [address] [place] [id number] Blu Kothari MD [address] [facility] [address] [place] [address] Social History Tobacco Use Types Packs/Day Years Used Date Smoking Tobacco: Never Smokeless Tobacco: Never Tobacco Cessation:Counseling Given: Not Answered Alcohol Use Standard Drinks/Week Comments Not Currently 0 (1 standard drink = 0.6 oz pur e alcohol) caffeine: 1-2 cups per day Comments Unknown Sex and Gender Information Value Date Recorded Sex Assigned at Not on file Legal Sex Female 7:17 PM EDT Gender Identity Not on file Sexual Orientation Not on file documented as of this encounter Plan of Treatment Not on file documented as of this encounter Visit Diagnoses Not on filedocumented in this encounter Care Teams Marine Fisheries Technician Relationship Specialty Start Date End Date Blu Kothari MD [address] [facility] [address] [place] [address] PCP - General Internal Medicine 04/01/23 Blu Kothari MD [address] [facility] [address] [place] [address] PCP - ACO Reach 12/31/24 04/26/25 documented as of this encounter
--- OUTSIDE RECORDS SUMMARY | 2025-05-02 06:46 | XMS_ITS | CCD ---
Author Organization [facility] Care Team Providers Care Leg Assembler Name Role Phone BLU KOTHARI Attending BLU Champagne Consulting BLU Champagne Primary Care Unavailable BLU KOTHARI Admitting Unavailable Jeanne RIVERA, Bouchra Giordano Attending Unavailable Jeanne RIVERA, Bouchra Giordano Attending Unavailable Jeanne RIVERA, Bouchra Giordano Attending Unavailable Jeanne RIVERA, Bouchra Giordano Attending Blu Champagne MD Primary Care Provider Blu Kothari MD Unavailable Blu Kothari II Primary Care Provider [phone] Blu Kothari II Attending Provider APRIL MERCEDES Attending Unavailable BLU KOTHARI Attending Unavailable BLU KOTHARI Attending Unavailable BLU KOTHARI Referring Unavailable BLU KOTHARI Attending Unavailable BLU KOTHARI Attending Unavailable ISABEL CATHERINE Attending Unavailable ISABEL CATHERINE Referring Unavailable ISABEL CATHERINE Referring Unavailable JR. [...] with food. 100 tablet 3 12/29/2023 Active Waco-3 Fatty Acids (Fish Oi l) 1000 MG capsule delayed-release (20 sources) [place]-3 Fatty Ac ids (Fish Oil) 1000 MG capsule delayed-release Take by mouth Daily Active [place]-3 Fatty Ac ids (Fish Oil) 1000 MG capsule delayed-release Take by mouth Daily. Active [place]-3 Fatty Ac ids (Fish Oil) 1000 MG [...] Reference Range Facility MR lumbar spine wo [facility] MR lumbar spine wo [facility] [place] [address] MRI Report Signed Patient: Miguel Gonzalez MR#: [id number] : 1955 Acct:[id number] Age/Sex: 69 / F ADM Date: 03/18/25 Loc: Room: Type: [facility] Attending Dr: Blu Kothari II, MD Copies [...] narrowing identified. L2-3: Broad-based disc bulge with luum-xc-prrbociu facet arthropathy. Minimal foraminal narrowing. Canal is patent. L3-L4: Circumferential disc bulge with moderate facet arthropathy. Mild neural foraminal narrowing. Minimal central canal stenosis. L4-5: Disc desiccation. Moderate disc facet arthropathy. No significant central canal or neural from narrowing identified. L5-S1: Circumferential disc bulge with moderate facet arthropathy. Moderate right moderate left neural foraminal narrowing. MR/MR lumbar spine wo con IMPRESSION: Wrbb-zh-pwenrjbg multilevel degenerative changes without high-grade canal or neural foraminal narrowing. Moderate left neural foraminal narrowing at L5-S1 Impression dictated by: Ever Odonnell M.D. 03/18/2025 3:49 PM Dictation Location: [place] [address] Transcribed By: [facility] 03/18/25 1549 Dictated By: Ever Odonnell MD 03/18/25 1509 Signed By: 03/18/25 1549 Normal [facility] Magnetic resonance imaging r eportOrdered By: Ever Odonnell on 03-18-2025 Study report [facility] [place] [address] MRI Report Signed Patient: Miguel Gonzalez MR#: [id number] : 1955 Acct:[id number] Age/Sex: 69 / F ADM Date: 5 Loc: MR Room: Type: [facility] Attending Dr: Blu Kothari II, MD Copies [...] narrowing identified. L2-3: Broad-based disc bulge with stdy-is-tzejkzlc facet arthropathy. Minimal foraminal narrowing. Canal is patent. L3-L4: Circumferential disc bulge with moderate facet arthropathy. Mild neural foraminal narrowing. Minimal central canal stenosis. L4-5: Disc desiccation. Moderate disc facet arthropathy. No significant central canal or neural from narrowing identified. L5-S1: Circumferential disc bulge with moderate facet arthropathy. Moderate right moderate left neural foraminal narrowing. MR/MR lumbar spine wo con IMPRESSION: Arct-ko-sapobwsl multilevel degenerative changes without high-grade canal or neural foraminal narrowing. Moderate left neural foraminal narrowing at L5-S1 Impression dictated by: Ever Odonnell M.D. 03/18/2025 3:49 PM Dictation Location: [place] [address] Transcribed By: [facility] 03/18/25 1549 Dictated By: Ever Odonnell MD 03/18/25 1509 Signed By: 03/18/25 1549 [facility] Work Phone: CT ABDOMEN PELVIS [...] 02-23-2025 Creatinine [Mass/Vol] 0.55 mg/dL Normal 0.50-1.05 [employer] Comment on above: Performed By: #### 3 75 #### [facility] [address], [address] [place] [phone] Audiometrist: Truman Liao MD GFR/1.73 sq M.predicted among non-blacks MDRD (S/P/Bld) [Vol rate/Area] 99 mL/min/{1.73_m2} Normal > OR = 60 [facility] Comment on above: Performed By: #### 3 75 #### [facility] [address], [address] [place] [phone] Audiometrist: Truman Liao MD Urinalysis macro (dipstick) panel (U)on 02-18-2025 Bilirubin, UA Negative Negative - 4(70) +++ mg/dL [facility] Blood, UA Negative Negative - 50 Tan/mcL [facility] Glucose, UA Negative Negative - 1999(110) ++++ mg/dL [facility] Ketones, UA Negative Negative - 160(16) ++++ mg/dL [facility] Leukocytes, UA Negative Negative - 500+++ [place]/mcL [facility] Nitrite, UA Negative Negative - Positive [facility] pH, UA 6.5 5 - 9 [facility] Protein, [facility]A Negative Negative - 1999(20) ++++ mg/dL [facility] Spec Grav, UA 1.005 1 - 1.03 [facility] Urobilinogen, UA 0.2 0.2 - 12 mg/dL [facility] IV [...] Comment: MRI R T shoulder w/o at [facility]. Orbits if needed. Eval for RT rotator [...] fracture and/or dislocation. Impression: Unremarkable right shoulder. [facility] XR Shoulder - right 2 ViewsO rdered By: Jr. Waite on 08-02-2024 [facility] [employer] Work Phone: XR Shoulder - right 2 Viewso n 07-27-2024 Radiology Study observation (narrative) [facility] Coding Summary.on 04-15-2021 Coding Summary. CD:[id number] Gh 0bWw+PGhlYWQ+MN9YXXZaG 22tqQFzpQ2YR2bQXP9ZHDC EJRZKAA2PDA1vfAZ3NKnaJ 2VybiAv FucwhMBlUU85EGe1FNH7bL iwQEmeeF2ufLZtR2v1DeGt PE89wH12BHrlXUDsAvZ8Lb ZpbjsgbWFy O5zjDoEjzPZbIgi+PHRhYm xlIHdpZHRoPScxMDAlJyBz lYewVI6uTc9mRMQgJKNguX xhcHNlOiBj v3gbBEEkEMpsHI7ohQdjI8 ZizHZ8AAXit4g8Vg64xVS+ YLIuTGT0fLmdXGtfp038Ua Yfa4psJOI6 jRYsKIjwUDE0T24vc7J2PU DdASGpFCB0oGT0wK4adPdv dpygZ3XwzYWxQjL7LNW0jC VqdN4yfBib ehhxaQ9iQcv+B59ZQN7YZU MULO2FCnm7B0PqEfvmdJB+ BR91OFYrET83sMFwhUDyc5 eayOm3LxIj SLFjHDI3rGszTWtua2QsEG AoG88pqKBry1H5YHBsnIwk lNQlThMzuLK7kR0wEWfgrr oaf5mdahov Tlmlb3qnln13kK46P31yPP ibMVUcRQG7ZYYrOKAlfJjl oh1mqR1wRl5+LUzbe5ioj2 igaHg3QmJy RXHrjnXolQhdXCG4a3YxDy 08J2AdkYuzc4ZiJkf7hi05 uQGuu9N4uHD2RTjrHTGzyY 9tBPbfAxR8 YZXyVwMbmZ74zZMrXRufTu 0loDtylTxiAT8zZNYobaeq EHOxwX5tCIOuaZVhwZgkAF 4wNTBpbjtm m949MjIvVGG4SILnqSImF8 KihP7rKpGbUVYgYHWzL8Xr vPXlPFjkP949XVcnCqI7BT WynxAdM6Gj PPPtjLxhDoW2n3S7Em6Aa2 YzgzcvJBN1SGrkJYS0CgUy EvRpWkW3D2VtGlt3JJMboZ foIF4eC7Aw BIOzrqxnswfqnSM6WAIfCS CyyV47jSXrJIjxCj9sg0C2 x106CLUiLNFodC66Aj4rsS ogMTBwdCBU vM4pieubf9uexsftYiCcPN QyOSb7SXz2GIKpaIhpWoIw HPY7JyC1RXI7vMBbuY8yaZ jefonxzU0j Oyc+L55deW9fPWT3TDP5aa rqSURyhpLmVP91OP21G3Cm PjwvdGFibGU+PGRpdiBzdH icMO2tMtTo n7vuk7KmBFwrH7TcPKKxZJ oiYen3AGDvCRL9oHW9hY1o OHYlPKmfz6U3pLI9C7Ohyi Ssee2rf6mz FKPrDZmiC65ewRZfl3L9OB YcqXW9HZPqlAsyTiVuiR68 Oyc+FXCjhOdae1BjQaxxq3 xrm0bvsTn6 JeHtAIFhpeSrtXmaEWZ3c1 LnVa67O04lORlgWALeOLDw WMQjIAOuhGwmtl1chB2sMx 8+PGNvbCB3 tQS1kN5sATNqNcG0YIjdG1 07DhJksVDdJvhvf0xhd3gb uVd7PcCvMIArxhKmjFmjPG M6h2YlRe63 X54dPOssWMFbUQLhOREzFS MhmFdhcm2wzO2cPc3+PC9j z5bvju32mJ11zPB+PHRkIH X3cRouGLte XEUjvK0eIQwfGzB2DRRqYb JetV23oQVeGYwiIi0isMam tIleOC5uAVGcoirkg571Ye Xqs2tiDWSy hHXkVMybPHP6D56ok6U1KC JfBHZfMGN5vDJ5qE5foXiw bjogbGVmdDsgdmVydGljYW asYDnyJ715 IHRvcDsnPlBhdGllbnQgTm SdHRx0Q3UzKvy0YTQxsMcw NB5peBTtFMcjCe3nqQzsuZ idLI2xUEMl hiphs121XdYor6beTTCexT MvXHamAYO1E69oe8B5LNLt NKGlDRR0hTR6cL3prXgjjf ogbGVmdDsg cvTbqRqqHQwkPIqpP826FT RvcDsnPkJpcnRoIERhdGU6 OV49FQ93yQMin1U6iVZ4H9 BhZGRpbmct xcdjxMY0UXAxXKShzL63Ek 1gwDjdJt8mOEPcIJI6WQEl cKQeG3BgsJ1iAeNvSJLzNM KqA4AjxPVh CQmfV576ZUxvOiP8VQQdka MwZ6QnUSVwrPdbVuJ8v1Y9 Wq7QX6P3DU22NZ45mZOkz7 Q5gRE6P7Tm OSUrezweohfylFR3MMYyBS QloZ05Ty3xqRruKd8jTCKs CEO3EFTatSVwY2KdiJ6mJt AjMDAwMDAw E4VwwNJqCGksN982LZzxQa Q7JBEkxaKuA8TpFIVqhTjn AxD6c4M0Ak4EYVt5CD67ND 74iBEcv0S5 dLL5B8IlGZPywcoxqwnucB D5FQPlCDVrsT43La1umDli Ub9cUYVvFGI7WRMttBOnC6 ZgjI6gZaVg PELpXUYgD1RhfXEuYBncH6 18SPymLqJ3PFLerfWdP0Vp GTXpySanStB8g4F5Mi5OWX KmPV68EQJ5 rQF9XU64BN96X2RgDpybqL FibGU+PHRhYmxlIHdpZHRo KAouUEGiNkFfoBvvNT9oOc 9yZGVyLWNv nIzluEHeVxGfx8dsSUVrDG prBC4bwWieJ4UddJK3OFHq g7l0Qu08I77sU2TypPM+PG XvcNO4qSD3 fB8dUvFjNeL5RKwkH242Ms EliTVwWzybj8duy9kwpAc3 YjS1NNMmlyBfcWcqBCP9z0 MnXf33I96s IHdpZHRoPSIxNSUiIHZhbG pipk3dwK5pBp3+PGNvbCB3 oEB6tD6pTiCbTdJ8TRpqJ2 49InRvcCIv Nnakb6csh3dxdBx4XaBrQC BnqoKtvGsoNQO1d5WzWo73 G8TirPsqw7KvDxt9yj82gJ Blo5O5vQO9 P4ZkISZcdmarsDSotNesFG 4vASKhalvpEKWxyF3wIGUt U3w0FkLhJaY5LHkpA7Gxtg M8BUTfwEZb QRxoEOB8K98sz3T3SHNtDE CpBFT1pRP7fG0tvSqitjrc bGVmdDsgdmVydGljYWwtYW ujS439JAUc aLokHVVquZ7jMVPkpGVcnB bgNT5lGFJghuojRpnCARIX MJVNDLBCPMMIMP02UM87gY Pgm3T4lAM8 Z1XeEEDferbtmuyydUO9TS IfVTBgwU15jZQjHYjhFi6u q5E8z245JPGeWVMvfO22Vb 9udDogMTBw sJMNrG7axgiyd9yedylnSi EoHQIsTPm6CQs0SOXtsWsl JjXhOPJ5JuF1KSW0rTLxfN 1hbGlnbjog gN2jUih+TFPxIjUuGOz4KC wvdGQ+BIJgHRY3lJwsREfo QHDobV0lDZXyA7b0YhOfWj S3KZldO0Cd JASrldsuTz77rN0fZoKrRi T7HFxeV1AfdqH3HNIrkVQr VEowOLH7K64gv9D9GZYwUQ MtXVC3vCU6 nN8qqQxghlhccTEbtMdlsj EuwYsmOUbgXNxiN791UDJz qNsmOiE8GXlcEGFxJE45CX 64xOUdo1O5 kXI9K1BrEFCilmhibxmgkT O6MZFdJEGhiO80aVOcDFer Bb1hk0P6y879IJJtLATmqG 79Sp7gdJlj QQIjqSBGmJ4nbxymk9bsae gqSjBfPDVfVDa7YIb8CIFo yQfrLsDvKWD2RsA0LLA8xE SqpQ1kgYqc tvtozS7tOsc+RmVtYWxlPC 42HA81cYSlu2I8sLI4W9My BLDxbceiooqumWE2XTPpLN UybR66cVVw SSbzXo7vx0J9v536YVXuSM DefL66Sn0whLfbHOKqrGEH tQ2swmskq9rkpfaxRnStAT SxTMl4WWd7 UGDjnLchJpDbSWI5VhE7RK O6nVGgkD0mdJrzokzibF6y Oyc+YN3hxqvcofH9JF54IM 21K3SjTcqp dGFibGU+PHRhYmxlIHdpZH IoONvdNEBeUtVwdBqiCM2j Ys1yHOSdPKZdjSfwxBAaSd Isu0keKAVj KJiiNS1vrDbzL8NwsNP4GH Soi8x1Zh72Z60aJ6NcmHE+ RMGrbBM6pZS5yH0wNpEoIu Y5EKvcB311 FnCibZEhShgwd2sor3ecdP l0KxUbKVNfrtAflSagAQY9 i6LoLl45G45nFHinBKAmXJ IyMCUiIHZh iTtmdk4qkV0uBc4+PGNvbC T2eHC9aD8oBaBnOjQ1STim W289HjZccJIiNzluZ37jB0 JvdXA+PHRy Aav6IPPahKetVO7rcRCdWH etVx7wJZD4OjSaMyGwIAtz P6FvEDPuvwmorghnhZH8QV JwPUZaeZ64 Yv7yaNgsJj5iSQXmDQR2IU OmfZLuT2MxgK2wBnJpSWUh SGBxQ2OmlIJsVSmaN386NC vpHiB0XFLq gkCrZ6DpQRTinXbbFgV0c0 Y3Ab7CrRcyeRNoMN0yPzQh QSp3R7IhZwx7XUDsxTccMM 0ncGFkZGlu Fe2soOpkjJdjEN6dMMWjiz rbz265OvDuv9ntKLNnwGHt FTdcWUN8N79dl9V6VCMoWB QdEWI4rTT0 cS4jiOognycvaXHyrZzvts ArlKthFNieGZmuQ265GSHz rAzsLjLNKra9F9CvGgj4DI MdiZzaOD3q qFAgOBqtXs6llHfkoJxdWR 0gCEVrgtnjc791PfFmf6qb KXXujLDrMSqpPJH1P18ew7 F1MEQpEGPw BUC4sLP6sB4wxQnfsajdeC VmdDsgdmVydGljYWwtYWxp L155LIAutTilVn4GCzd6O6 KaDbf2ZINz uClvTI9ahONeVEfbBq9seP fzlNsbSC3yLVQrcvuqf918 GvRuf5fmEGQakJVoRFjrYS A6P57wx8G8 NQCbZMUaMLE3hUR2oT0qgR lnbjogbGVmdDsgdmVydGlj KQzwZOeiJ744KRTchFyvUp BheWVyOjwv dGQ+KO06nx30E4HiLwosYh q3DYMcXOS0aSV2nN9lVJBo NTtdx3M0uZT6G5YpimQztj 4ar2sbMJBy ZTog (more content not included)... Normal [facility] ED Note-Physicianon 04-06-20 ED Note-Physician Basic [...] They are unsure of who the cats hazardous materials handler is. She states they are unsure whether the cat is up-to-date on its immunizations. She states that her dog is one after the cat, and she attempted to cone picker the cat when the cat [...] Appropriate mood & affect. Integumentary: Warm, Dry, [place]. Puncture wounds noted to the left thumb [...] Assessment/Plan 1. Cat bite of left hand (S61.482A: Open bite of left hand, initial encounter) 2. Cat scratch of lower leg (S80.578B: Abrasion, unspecified lower leg, initial encounter) Orders: [...] DARCY In 3 days 04/08/2021 EDT [address] [place] [address] Business (1) Additional Instructions: Wear the splint [...] body noted. Read By: Alexandr Eduardo PA-C [facility] Comment on above: Result Comment: Elec tronically Signed By: Alexandr Eduardo PA-C\.br\Date and Time Signed: 04/05/21 21:31 EDT\.br\Electronically Co-Signed By: Walter Aguilar, Abdoulaye Terrazas\Date and Time Co-Signed: 04/06/21 11:28 EDT Animal Bite Investigationon 04-05-2021 Animal Bite Investigation [id number]. 00CD:127 Normal [facility] Consent for Treatmenton 03-24 Consent for Treatment [id number] 0CD:127 Normal [facility] Discharge Instructionson Discharge Instructions [id number] .[id number]:127 Normal [facility] ED Clinical Summaryon 2020 ED Clinical Summary [place] [id number] ED Clinical Summary Person Information Name: MIGUEL GONZALEZ [facility] Age: 65 Years : 1955 Sex: Female Language: Irish PCP: BLU KOTHARI MD Marital Status: Visit [...] 04/05/2021 14:46:42 04/05/2021 14:46:42 04/05/2021 14:46:42 ADDRESS: [address] [place] [address] [address] [place] [phone] [facility] DOC NOTES: MEDICAL INFORMATION: Prescriptions Given: New [...] Follow up: With: Address: When: BLU Rick [place] [address] [employer] (1) In 3 days 04/08/2021 Comments: Wear [...] hand; 2:Cat scratch of lower leg Normal [facility] ED Patient Education Noteon 04-05-2021 ED [...] and water are not available, 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 ? Change your dressing as told by [...] bad smell. Medicines ? Take or apply ghqf-fia-qzfwkqz and prescription medicines only as told by [...] antibiotic medic (more content not included)... Normal [facility] ED Patient Summaryon 021 ED Patient Summary [place] [id number] Patient Discharge Instructions Person Information Name: MIGUEL GONZALEZ Age: 65 Years Arrival Date: 04/05/2021 12:55:11 Discharge Diagnosis: 1:Cat bite of left hand; 2:Cat scratch of lower leg Primary Care Physician: BLU KOTHARI MD Provider Information Primary Provider: Abdoulaye Watson M.D. [employer] Department Chair:Alexandr Eduardo PA-C The exam and treatment you received in the Emergency Department were for an urgent problem and are not intended as complete care. It is important that you follow up with a doctor, nurse practitioner, or physician?s under water assistant for ongoing care. If your symptoms [...] Follow-up Instructions: With: Address: When: BLU KOTHARI [address] [place], [place] [address] [address] Business (1) In 3 days 04/08/2021 Comments: [...] opioids can be used to help relieve afcassua-uw-nzvffv pain and are often prescribed following a [...] and Drug (more content not included)... Normal [facility] Vaccinationson 04-05-2021 Vaccinations [id number] .00CD:127 Normal [facility] XR Finger(s) Min 2 Views Lef [...] M.D. Transcribed by: MAYELIN Technologist: HARRY Neal [facility] Covid-19 PCR (CVDTBH)on 11-25 Covid-19 PCR NOT DETECTED Normal NOT DETECTED [facility] Comment on above: Result Comment: This test is not yet approved or cleared by the [place] FDA. When there are no FDA-approved or cleared tests available, and other criteria are met, FDA can make tests available under an emergency access mechanism called an Emergency Use Authorization (EUA). The EUA for this test is supported by the [place] Utility Worker of Health and Human Service's (HHS's) declaration [...] longer be used). Performed By: #### C [facility] #### [facility] [address] [place] [address] Adore Hale EUA Statement SEE BELOW Normal [facility] Comment on above: Result Comment: This test is not yet approved or cleared by the [place] FDA. When there are no FDA-approved or cleared tests available, and other criteria are met, FDA can make tests available under an emergency access mechanism called an Emergency Use Authorization (EUA). The EUA for this test is supported by the [place] of Health and Human Service?s (HHS?s) declaration [...] consistent with SARS-CoV-2. Performed By: #### C [facility] #### [facility] [address] [place], [place] [id number] Adore Hale Vital Signs Date Time Vital Sign Value Performing Clinician Faci sayray 03-25-2025 08:54-0400 Body height 144.8 cm Blu Kothari MD Work Phone: [facility] 03-25-2025 08:54-0400 Body mass index (BMI) [Ratio] 26.81 kg/m2 Blu Kothari MD Work Phone: [facility] 03-25-2025 08:54-0400 Body weight 56.2 kg Blu Kothari MD Work Phone: [facility] 03-25-2025 08:54-0400 Diastolic blood pressure 102 mm[Hg] Blu Kothari MD Work Phone: [facility] 03-25-2025 08:54-0400 Heart rate 68 /min Blu Kothari MD Work Phone: [facility] 03-25-2025 08:54-0400 Respiratory rate 16 /min Blu Kothari MD Work Phone: [facility] 03-25-2025 08:54-0400 SaO2% (BldA) [Mass fraction] 98 % Blu Kothari MD Work Phone: [facility] 03-25-2025 08:54-0400 Systolic blood pressure 164 mm[Hg] Blu Kothari MD Work Phone: [facility] 03-07-2025 09:18-0400 Body height 144.8 cm Blu Kothari MD Work Phone: [facility] 03-07-2025 09:18-0400 Body mass index (BMI) [Ratio] 26.62 kg/m2 Blu Kothari MD Work Phone: [facility] 03-07-2025 09:18-0400 Body weight 55.79 kg Blu Kothari MD Work Phone: [facility] 03-07-2025 09:18-0400 Diastolic blood pressure 76 mm[Hg] Blu Kothari MD Work Phone: [facility] 03-07-2025 09:18-0400 Heart rate 70 /min Blu Kothari MD Work Phone: [facility] 03-07-2025 09:18-0400 SaO2% (BldA) [Mass fraction] 99 % Blu Kothari MD Work Phone: [facility] 03-07-2025 09:18-0400 Systolic blood pressure 128 mm[Hg] Blu Kothari MD Work Phone: [facility] 02-18-2025 09:04-0400 Body height 144.8 cm Blu Kothari MD Work Phone: [facility] 02-18-2025 09:04-0400 Body mass index (BMI) [Ratio] 26.83 kg/m2 Blu Kothari MD Work Phone: [facility] 02-18-2025 09:04-0400 Body weight 56.25 kg Blu Kothari MD Work Phone: [facility] 02-18-2025 09:04-0400 Diastolic blood pressure 74 mm[Hg] Blu Kothari MD Work Phone: [facility] 02-18-2025 09:04-0400 Heart rate 72 /min Blu Kothari MD Work Phone: [facility] 02-18-2025 09:04-0400 SaO2% (BldA) [Mass fraction] 98 % Blu Kothari MD Work Phone: [facility] 02-18-2025 09:04-0400 Systolic blood pressure 132 mm[Hg] Blu Kothari MD Work Phone: [facility] 09-23-2024 08:16-0400 Body height 144.8 cm April MERAZ Work Phone: [facility] 09-23-2024 08:16-0400 Body mass index (BMI) [Ratio] 25.75 kg/m2 April MERAZ Work Phone: [facility] 09-23-2024 08:16-0400 Body weight 53.98 kg April Daren PA Work Phone: [facility] 08-20-2024 08:35-0400 Body height 144.8 cm Alexia Kohlimer PA Work Phone: [facility] 08-20-2024 08:35-0400 Body mass index (BMI) [Ratio] 25.92 kg/m2 Alexia Hemmer PA Work Phone: [facility] 08-20-2024 08:35-0400 Body weight 54.34 kg Alexia Hemmer PA Work Phone: [facility] 08-20-2024 08:35-0400 Diastolic blood pressure 86 mm[Hg] Alexia Hemmer PA Work Phone: [facility] 08-20-2024 08:35-0400 Heart rate 70 /min Alexia Hemmer PA Work Phone: [facility] 08-20-2024 08:35-0400 Respiratory rate 16 /min Alexia Hemmer PA Work Phone: [facility] 08-20-2024 08:35-0400 SaO2% (BldA) [Mass fraction] 96 % Alexia Hemmer PA Work Phone: [facility] 08-20-2024 08:35-0400 Systolic blood pressure 138 mm[Hg] Alexia Hemmer PA Work Phone: [facility] 07-27-2024 11:58-0400 Body height 144.8 cm Isabel Catherine DEPARTMENT ADMINISTRATOR Work Phone: [facility] 07-27-2024 11:58-0400 Body mass index (BMI) [Ratio] 25.75 kg/m2 Isabel Catherine NP Work Phone: [facility] 07-27-2024 11:58-0400 Body weight 53.98 kg Isabel Catherine NP Work Phone: [facility] 07-21-2024 14:44-0400 Body height 147.3 cm Blu Kothari MD Work Phone: [facility] 07-21-2024 14:44-0400 Body mass index (BMI) [Ratio] 25.71 kg/m2 Blu Kothari MD Work Phone: [facility] 07-21-2024 14:44-0400 Body weight 55.79 kg Blu Kothari MD Work Phone: [facility] 07-21-2024 14:44-0400 Diastolic blood pressure 80 mm[Hg] Blu Kothari MD Work Phone: [facility] 07-21-2024 14:44-0400 Heart rate 79 /min Blu Kothari MD Work Phone: [facility] 07-21-2024 14:44-0400 SaO2% (BldA) [Mass fraction] 98 % Blu Kothari MD Work Phone: [facility] 07-21-2024 14:44-0400 Systolic blood pressure 130 mm[Hg] [...] encounter procedure Blu Kothari II Work Phone: [facility] Work Phone: Start: 03-18-2025 End: 03-18-2025 ambulatory Blu Kothari II Work Phone: [facility] Work Phone: Start: 03-07-2025 End: [...] Start: 02-18-2025 End: 02-18-2025 Bamboo flowsheet Blu Kohtari MD Work Phone: [facility] Start: [...] ORTHO Start: 11-04-2024 End: 11-04-2024 Bamboo flowsheet Arpil Mercedes PA Work Phone: [facility] Start: 11-04-2024 End: 11-04-2024 Postop follow up visit related to original px April Mercedes PA Work Phone: [facility] Comment on above: S/P arthroscopy of r ight shoulder (Primary Dx) Start: 11-04-2024 End: 11-04-2024 ambulatory APRIL Hameed DAREN Not Available Start: 10-19-2024 End: 10-19-2024 Refill Isabel Catherine DEPARTMENT ADMINISTRATOR Work Phone: [facility] Comment on above: [...] Start: 09-15-2024 End: 09-15-2024 Bamboo flowsheet Jr. oSn Guerrero Stepanic DO Work Phone: [facility] [...] esophagitis; Age-related osteoporosis without current pathological fracture ([facility]/H[facility]); Cervical spondylosis without myelopathy; Lumbar paraspinal muscle spasm; Overweight (BMI 25.0-29.9); Elevated LDL cholesterol level ([facility]); History of hysterectomy; Hypercalcemia; Other problems related [...] 07-27-2024 End: 07-27-2024 Bamboo flowsheet Isabel Catherine DEPARTMENT ADMINISTRATOR Work Phone: [facility] Start: 07-27-2024 End: 07-27-2024 Bamboo flowsheet Isabel Catherine DEPARTMENT ADMINISTRATOR Work Phone: [facility] Start: 07-27-2024 End: 07-27-2024 Office outpatient new 30 minutes Isabel Catherine DEPARTMENT ADMINISTRATOR Work Phone: [facility] Comment on above: Internal derangement of right shoulder (Primary Dx); Right shoulder pain, unspecified chronicity Start: 07-27-2024 End: 07-27-2024 ambulatory ISABEL CATHERINE Not Available Start: 07-21-2024 End: 07-21-2024 Office outpatient visit 25 minutes Blu Kothari MD Work Phone: [facility] Comment on above: Cervical spondylosis without myelopathy (Primary Dx); Age-related osteoporosis without current pathological fracture ([facility]); Primary hypertension ([facility]); Gastroesophageal reflux disease without esophagitis; Lumbosacral spondylosis with radiculopathy; Elevated LDL cholesterol level ([facility]); Shoulder capsulitis, right Start: 07-21-2024 End: 07-21-2024 [...] Facility: [facility] Start: 08-04-2023 End: 08-05-2023 ambulatory Bouchra Angel MD Facility: [facility] Start: 12-21-2020 End: 12-21-2020 Patient encounter procedure BLU KOTHARI Facility:[facility] Procedures Date Procedure Procedure Detail Performing Clinician Start: 03-18-2025 MR lumbar spine wo con Blu Kothari II Work Phone: Start: 02-18-2025 Urnls dip stick/tablet rgnt non-auto w/o micrscp Blu Kothari MD Work Phone: Start: 07-27-2024 Radex shoulder complete minimum 2 views Isabel Brown Mariaa DEPARTMENT ADMINISTRATOR Work Phone: Start: 07-03-2023 H/O: hysterectomy History [...] pain, chronic Expected: 02/18/2025 (Approximate), Expires: 02/18/2026 [facility] Work Phone: Comment on above: Expected: [...] for malign ant neoplasm of breast Mammogram [facility] Comment on above: Postponed from 05/13 (Patient Refused) Start: 08-20-2024 End: 08-20-2025 CBC W Auto Differential panel - Blood CBC and differential Lab Routine Medicare annual wellness visit, subsequent Primary hypertension (CMS/HCC) Expected: 08/20/2024 (Approximate), Expires: 08/20/2025 [facility] [employer] Work Phone: Comment on above: Expected: 08/20/2024 [...] Procedure [facility] MR [address] AD[address] [facility] [place] [id number] [facility] MR Start: 08-06-2024 End: 08-06-2024 Patient encounter procedure 08/06/2024 9:30 AM EDT Office Visit [facility] [address] [facility] 110 [place] [id number] Blu Kothari MD [address] [facility] 110 [place], [place] [id number] [facility] Start: 08-01-2024 Medicare Annual [...] Visit [facility] [address] [facility] [address] [place] [address] Isabel Catherine, DEPARTMENT ADMINISTRATOR [address] [facility] [place], [place] [id number] Right shoulder pain, unspecified chronicity [facility] Comment on above: Right shoulder pain, unspecified chronicity Start: 07-25-2024 Influenza vaccination Influenza Vacc ine (#1) [facility] Start: 07-21-2024 End: 07-21-2024 Patient encounter procedure 07/21/2024 2:45 PM EDT Office Visit [facility] [address] [facility] [address] [place] [address] Blu Kothari MD [address] [facility] [address] [place] [address] Arrived [facility] Comment on above: Arrived Start: 12-29-2023 End: 12-29-2023 Patient encounter procedure 12/29/2023 3:30 PM EST Office Visit [facility] [address] [facility] [address] [place] [address] Blu Kothari MD [address] [facility] [address] [place] [address] [facility] Start: 06-20-2022 Pneumococcal Vaccine : 65+ Years (2 - PCV) Pneumococcal Vaccine: 65+ Years (2 - PCV) [facility] Start: 06-20-2022 Pneumococcal Vaccine : 65+ Years (2 of 2 - PCV) Pneumococcal Vaccine: 65+ Years (2 of 2 - PCV) [facility] Start: 1995 Screening for malign ant neoplasm of breast Mammogram [facility] Start: 1955 Screening for malign ant neoplasm of colon [facility] Immunizations Immunization Date Immunization Notes Care Provider Vanessa higginbotham 10-10-2024 Pneumococcal Conjuga te PCV 20 Blu Kothari MD Work Phone: [facility] 10-03-2024 influenza, high dose seasonal, preservative-free Blu Kothari MD Work Phone: [facility] 08-07-2023 Influenza, Seasonal, Quadrivalent, Adjuvanted Blu Kothari MD Work Phone: [facility] 08-07-2023 influenza virus vacc ine, unspecified formulation Blu Kothari MD Work Phone: [facility] 11-10-2022 Influenza, High-dose Seasonal, Quadrivalent, Preservative Free Blu Kothari MD Work Phone: [facility] 03-02-2022 zoster vaccine recombinant Padma Kothari MD Work Phone: [facility] 11-30-2021 zoster vaccine recombinant Padma Kothari MD Work Phone: [facility] 09-04-2021 Influenza, High-dose Seasonal, Quadrivalent, Preservative Free Blu Kothari MD Work Phone: [facility] 06-20-2021 pneumococcal polysaccharide vaccine, 23 valent Blu Kothari MD Work Phone: [facility] 04-05-2021 tetanus toxoid, redu viridiana diphtheria toxoid, and acellular pertussis vaccine, adsorbed Blu Kothari MD Work Phone: [facility] 08-17-2020 Influenza, High-dose Seasonal, Quadrivalent, Preservative Free Blu Kothari MD Work Phone: [facility] Payers Date Payer Category Payer Self-pay 2023 Private Health Insurance [id number] 2023 Unknown [id number] 2022 Medicare 2022 Unknown 2022 Medicare [id number] 2022 Medicare [id number] 1959 Unknown [id number] 1955 Unknown [id number] [id number]3 1955 Unknown [id number] 2.16.840.1.506482.3.579.2.196 1955 Unknown [id number] 2.16.840.1.312713.3.579.2.196 1955 Unknown [id number] 2.16.840.1.311890.3.579.2.196 1955 Unknown [id number] 2.16.840.1.630812.3.579.2.196 1955 Unknown [id number] 2.16.840.1.055516.3.579.2.1259 1955 Unknown [id number] 2.16.840.1.407033.3.579.2.1259 1955 Unknown [id number] 2.16.840.1.657590.3.579.2.1259 1955 Unknown [id number] 2.16.840.1.567627.3.579.2.1259 1955 Unknown [id number] 2.16.840.1.583164.3.579.2.125 1955 Unknown [id number] 2.16.840.1.820278.3.579.2.1259 1955 Unknown [id number] 2.16.840.1.361546.3.579.2.1259 1955 Unknown [id number] 2.16.840.1.693211.3.579.2.9 1955 Unknown [id number] 2.16.840.1.311181.3.579.2.1258 1955 Unknown [id number] 2.16.840.1.582491.3.579.2.1258 1955 Unknown [id number] 2.16.840.1.239052.3.579.2.1258 1955 Unknown [id number] 2.16.840.1.502111.3.579.2.1258 1955 Unknown [id number] 2.16.840.1.368591.3.579.2.1258 1955 Unknown [id number] 2.16.840.1.762678.3.579.2.1258 1955 Unknown [id number] 2.16.840.1.232040.3.579.2.1259 Private Health Insurance [facility] [id number] Unknown [id number] 2.16.840.1.741111.3.579.2.531 Social History Date Type Detail Facility Start: 07-03-2023 Tobacco smoking stat [facility] Never smoked tobacco [facility] [...] [facility] Start: 07-27-2024 Tobacco smoking stat [facility] Ex-smoker [facility] Work Phone: History of tobacco use Current smoker [facility] History of tobacco use Cigarette Smoker N [facility] Start: 08-20-2024 End: 03-25-2025 Alcoholic beverage intake Current drinker of alcohol (finding) [facility] Work Phone: Start: 03-19-2025 Sex Female (finding) [facility] Start: 1955 Sex Assigned At Female F [facility] Functional Status Date Assessment Result Facility 03-25-2025 Patient Health Quest ionnaire 2 item (PHQ-2) [Reported] [facility] 03-07-2025 Patient Health Quest ionnaire 2 item (PHQ-2) [Reported] [facility] Clinical Notes 12-29-2023 to 03-25-2025 Blu Kothari [...] 8 Multiple Vitamin (Multivitamin Adult) tablet Daily [place]-3 Fatty Acids (Fish Oil) 1000 MG capsule [...] cancer Father Past Medical History: Diagnosis Date 'Ihctg-flk-ryzth' infant with signs of malnutrition Arthritis Cervical [...] Greater than 25 minutes was spent in rmuz-wu-qpfm consultation and coordination of care. Follow up in about 6 months (around 09/25/2025) for Routine F/U. documented in this encounter [facility] 03-07-2025 History of Presen t illness Narrative [...] 8 Multiple Vitamin (Multivitamin Adult) tablet Daily [place]-3 Fatty Acids (Fish Oil) 1000 MG capsule [...] cancer Father Past Medical History: Diagnosis Date 'Dzmxo-tbx-gjtte' with signs of malnutrition Arthritis Cervical spondylolysis [...] for Test/Lab Review. documented in this encounter [facility] 02-18-2025 History of Presen t illness Narrative [...] 8 Multiple Vitamin (Multivitamin Adult) tablet Daily. [place]-3 Fatty Acids (Fish Oil) 1000 MG capsule [...] cancer Father Past Medical History: Diagnosis Date 'Ghwae-cmt-ayvsh' with signs of malnutrition Arthritis Cervical spondylolysis [...] for Test/Lab Review. documented in this encounter [facility] 01-03-2025 History of Presen t illness Narrative [...] Referral Reason: Specialty Services Required Referral Location: [facility] Requested Specialty: Physical Therapy Number [...] requiring urgent evaluation. documented in this encounter [facility] 12-02-2024 History of Presen t illness Narrative Images from the original note were not included. HISTORY OF PRESENT ILLNESS: POST OP PT Miguel Gonzalez is an 69 y.o. @ female. (EST PT) S/P (R) SHOULDER SCOPE 10/20/24 (6WKS 1DAY) S/P [facility] PHYSICAL THERAPY ORDER (HAS NOT STARTED) HAS NOT STARTED PHYSICAL THERAPY YET ; STATES SHE DOES HAVE THERAPY SCHEDULED @ [facility] 12/06/24 IF SHE IS ALLOWED TO DRIVE BY THEN OTHERWISE SHE WILL SCHEDULE WITH ZENAIDA AT [facility] HEP. PRESENTS WEARING SLING TODAY, INCORRECTLY. [...] Referral Reason: Specialty Services Required Referral Location: [facility] Scheduling Requested Specialty: Physical Therapy Number of Visits Requested: 1 ASSESSMENT: ICD-10-CM 1. S/P arthroscopy of right shoulder Z98.890 Ambulatory referral to Physical Therapy S/p rotator cuff repair and SAD Assessment & Plan 1. Post-operative status following right shoulder arthroscopy, rotator cuff repair, and subacromial decompression. She has expressed a preference for outpatient therapy at [facility]. Given her satisfactory passive and active range [...] requiring urgent evaluation. documented in this encounter [facility] 11-04-2024 History of Presen t illness Narrative [...] requiring urgent evaluation. documented in this encounter [facility] 11-04-2024 Instructions MARIYA David - 11/04/2024 1:30 [...] soon as possible documented in this encounter [facility] 10-19-2024 Telephone encount er Note Post op pain rx. PDMP reviewed [facility] 10-19-2024 Miscellaneous Notes Formattin g of this note might be different from the original. Post op pain rx. PDMP reviewed documented in this encounter [facility] 09-23-2024 History of Presen t illness Narrative Images from the original note were not included. GENERAL HISTORY AND PHYSICAL: NAME: Miguel Gonzalez : 1955 HISTORY OF PRESENT ILLNESS: Miguel Gonzalez is an 69 y.o. @ female. Here for surgery instructions - (R) SHOULDER SCOPE 10/20/2024 @[facility]IE PAST MEDICAL HISTORY: Past Medical History: Diagnosis Date 'Voucn-gsr-migqq' infant with signs of malnutrition Arthritis Cervical [...] food Multiple Vitamin (Multivitamin Adult) tablet Daily [place]-3 Fatty Acids (Fish Oil) 1000 MG capsule [...] SX INSTRUCTIONS GIVEN TODAY 09/23 @8:30AM - MIDDLE BROOK ULTRASLING GIVEN TODAY ARTHREX NOTIFIED Patient presents [...] Follow up for 11/04 @1:30pm w/aline in [place]. documented in this encounter [facility] 09-15-2024 History of Presen t illness Narrative Images from the original note were not included. HISTORY OF PRESENT ILLNESS: EST PT Miguel Gonzalez is an 69 y.o. @ female. (EST PT) RECHECK (R) SHOULDER ; S/P HEP XRAYS, 07/27/24 IN [facility] MRI 08/11/24 IN EPIC NO MDP / [...] food Multiple Vitamin (Multivitamin Adult) tablet Daily [place]-3 Fatty Acids (Fish Oil) 1000 MG capsule [...] Son Waite D.O. documented in this encounter [facility] 08-23-2024 Telephone encount er Note Spoke with patient she will see 09/15 for her next scheduled appt. [facility] 08-23-2024 Miscellaneous Notes Formattin g of this note might be different from the original. Spoke with patient she will see 09/15 for her next scheduled appt. Patient left requesting to go ahead and schedule her sx. Please advise [phone]. documented in this encounter [facility] 08-23-2024 Telephone encount er Note Patient left requesting to go ahead and schedule her sx. Please advise [phone]. [facility] 08-20-2024 History of Presen t illness Narrative [...] 3 Multiple Vitamin (Multivitamin Adult) tablet Daily. [place]-3 Fatty Acids (Fish Oil) 1000 MG capsule [...] cancer Father Past Medical History: Diagnosis Date 'Daqie-bks-lngnj' with signs of malnutrition Arthritis Cervical spondylolysis [...] Do you have a medical power of sports attorney?: Yes Objective : BP 138/86 Pulse 70 [...] right shoulder The patient is seeing a medical collections representative for this condition, treatment is deferred to that specialist. Correspondence from that specialist and any available testing were reviewed during today's visit. Follow up in about 3 months (around 11/19/2024) for Medication Follow Up. Electronically signed by Alexia Reid PA-C on August 20, 2024 documented in this encounter [facility] 08-13-2024 History of Presen t illness Narrative HISTORY OF PRESENT ILLNESS: EST PT Miguel Gonzalez is an 69 y.o. @ female. (EST PT ; LAST APPT W/ ISABEL) RECHECK (R) SHOULDER ; HERE FOR MRI RESULTS 08/11/24 IN [facility] XRAYS, 07/27/24 IN [facility] MRI 08/11/24 IN [facility] NO MDP / PREDNISONE NO CORTISONE INJ [...] food Multiple Vitamin (Multivitamin Adult) tablet Daily [place]-3 Fatty Acids (Fish Oil) 1000 MG capsule [...] she states that she is going to [place] in 2 weeks and then her is scheduled to consult at [facility] 09/10 ; patient would like to [...] Son Waite D.O. documented in this encounter [facility] 07-27-2024 History of Presen t illness Narrative [...] MEDICAL HISTORY: Past Medical History: Diagnosis Date 'Kjgpx-rjk-gbpgq' with signs of malnutrition Arthritis Cervical spondylolysis [...] food Multiple Vitamin (Multivitamin Adult) tablet Daily [place]-3 Fatty Acids (Fish Oil) 1000 MG capsule [...] develop for requiring urgent evaluation. Isabel Catherine APRN-SR ACCOUNT EXECUTIVE documented in this encounter [facility] 07-21-2024 History of Presen t illness Narrative [...] 3 Multiple Vitamin (Multivitamin Adult) tablet Daily. [place]-3 Fatty Acids (Fish Oil) 1000 MG capsule [...] cancer Father Past Medical History: Diagnosis Date 'Ywsuf-zgo-vokac' infant with signs of malnutrition Arthritis Cervical [...] myelopathy Age-related osteoporosis without current pathological fracture ([facility]/HCC) Primary hypertension ([facility]) Gastroesophageal reflux disease without esophagitis Lumbosacral spondylosis [...] As Previously Scheduled. documented in this encounter [facility] 12-29-2023 Telephone encount er Note sent [facility] 12-29-2023 Miscellaneous Notes Formattin g of this note might be different from the original. sent documented in this encounter [facility] Evaluation note Diagnosis Cervical spondylosis without myelopathy- Primary documented in this encounter [facility] HealthcareEvaluation note* Diagnosis Internal derangement of right shoulder- Primary documented in this encounter [facility] HealthcareEvaluation note* Diagnosis Pre-op examination- Primary documented in this encounter [facility] HealthcareEvaluation note* Diagnosis Internal derangement of right shoulder- Primary documented in this encounter [facility] HealthcareEvaluation note* Diagnosis S/P arthroscopy of right shoulder- Primary documented in this encounter [facility] note* Diagnosis Cervical spondylosis without myelopathy- Primary Age-related osteoporosis without current pathological fracture ([facility]) Primary hypertension ([facility]) Unspecified essential hypertension Gastroesophageal reflux disease without esophagitis Esophageal reflux Lumbosacral spondylosis with radiculopathy Elevated LDL cholesterol level ([facility]/HCC) Shoulder capsulitis, right documented in this encounter [facility] HealthcareEvaluation note* Diagnosis Internal derangement of right shoulder- Primary Right shoulder pain, unspecified chronicity documented in this encounter [facility] HealthcareEvaluation note* Diagnosis Internal derangement of right shoulder- Primary documented in this encounter [facility] Healthcare[facility] note* Diagnosis Medicare annual wellness visit, subsequent- Primary ACP (advance care planning) Other specified counseling Primary insomnia Persistent disorder of initiating or maintaining sleep Lumbosacral spondylosis with radiculopathy Post herpetic neuralgia ([facility]/HCC) Herpes zoster with other nervous system complications Primary hypertension ([facility]) Unspecified essential hypertension Gastroesophageal reflux disease without esophagitis Esophageal reflux Age-related osteoporosis without current pathological fracture ([facility]/HCC) Cervical spondylosis without myelopathy Lumbar paraspinal muscle spasm Other symptoms referable to back Overweight (BMI 25.0-29.9) Overweight Elevated LDL cholesterol level (CMS/HCC) History of hysterectomy Acquired absence of both cervix and uterus Hypercalcemia Other problems related to lifestyle Internal derangement of right shoulder documented in this encounter [facility] HealthcareEvaluation note* Diagnosis S/P arthroscopy of right shoulder- Primary documented in this encounter [facility] HealthcareEvaluation note* Diagnosis S/P arthroscopy of right shoulder- Primary documented in this encounter [facility] HealthcareEvaluation note* Diagnosis Lumbosacral spondylosis with radiculopathy- Primary Right flank pain, chronic documented in this encounter [facility] Healthcare[facility] note* Diagnosis Lumbosacral spondylosis with radiculopathy- Primary Right flank pain, chronic Other idiopathic scoliosis, thoracolumbar region Lumbar disc narrowing Degeneration of lumbar or lumbosacral intervertebral disc documented in this encounter [facility] HealthcareEvaluation noteNo assessment information availableWooster [facility] Work Phone: Evaluation note* Diagnosis Lumbosacral spondylosis with radiculopathy- Primary documented in this encounter [facility] HealthcareReason for referral (narrative)* Consultation (Routine) - Pending Review Specialty Diagnoses / Procedures Referred By Contact Referred To Contact Orthopaedic Surgery Diagnoses Shoulder capsulitis, right Blu Kothari MD [address] [facility] [address] [place] [address] April Mercedes PA [address] [facility] [address] [place] [address] Referral ID Status Reason Start Date Expiration Date Visits Requested Visits Authorized [id number] Pending Review Specialty Services Required 07/21/2024 01/17/2025 1 1 [facility] Summary Purpose Family History No Family History [...] shoulder right wo IV contrast Isabel Catherine, DEPARTMENT ADMINISTRATOR [address] [place] [address] [facility] [place] [address] Referral ID Status Reason Start Date Expiration Date V isits Requested Visits Authorized [id number] Authorized 07/27/2024 01/23/2025 1 1 Chief Complaint and Reason for Visit Chief Complaint Admit Date M47.27 M41.25 M51.369 March 18, 2025 1 0:57am Additional Source Comments INFORMATION SOURCE (unrecogn ized section and content) DATE CREATED AUTHOR 12/29/2020 [facility] DATE CREATED AUTHOR AUTHOR'S ORGANIZ ATION 07/09/2021 [facility] DATE CREATED AUTHOR AUTHOR'S ORGANIZ ATION 11/14/2023 [facility] DATE CREATED AUTHOR AUTHOR'S ORGANIZ ATION 02/26/2025 [facility] DATE CREATED AUTHOR AUTHOR'S ORGANIZ ATION 03/30/2025 [facility] EPIC DATE CREATED AUTHOR AUTHOR'S ORGANIZ ATION 04/09/2025 [facility] ysician Group Reason for Visit (unrecogniz [...] Care Teams (unrecognized sec tion and content) Leg Assembler Relationship Specialty Start Date End Date Blu Kothari MD [address] [facility] [address] [place] [address] PCP - General Internal Medicine 04/01/23 Leg Assembler Relationship Specialty Start Date End Date Blu Kothari MD [address] [facility] [address] [place] [address] PCP - General Internal Medicine 04/01/23 Leg Assembler Relationship Specialty Start Date End Date Blu Kothari MD [address] [facility] [address] [place] [address] PCP - General Internal Medicine 04/01/23 Leg Assembler Relationship Specialty Start Date End Date Blu Kothari MD [address] [facility] [address] [place] [address] PCP - General Internal Medicine 04/01/23 Leg Assembler Relationship Specialty Start Date End Date Blu Kothari MD [address] [facility] [address] [place] [address] PCP - General Internal Medicine 04/01/23 Leg Assembler Relationship Specialty Start Date End Date Blu Kothari MD [address] [facility] [address] [place] [address] PCP - General Internal Medicine 04/01/23 Leg Assembler Relationship Specialty Start Date End Date Blu Kothari MD [address] [facility] [address] [place] [address] PCP - General Internal Medicine 04/01/23 Leg Assembler Relationship Specialty Start Date End Date Blu Kothari MD [address] [facility] [address] [place] [address] PCP - General Internal Medicine 04/01/23 Leg Assembler Relationship Specialty Start Date End Date Blu Kothari MD [address] [facility] [address] [place] [address] PCP - General Internal Medicine 04/01/23 Leg Assembler Relationship Specialty Start Date End Date Blu Kothari MD [address] [facility] [address] [place] [address] PCP - General Internal Medicine 04/01/23 Leg Assembler Relationship Specialty Start Date End Date Blu Kothari MD [address] [facility] [address] [place] [address] PCP - General Internal Medicine 04/01/23 Leg Assembler Relationship Specialty Start Date End Date Blu Kothari MD [address] [facility] [address] [place] [address] PCP - General Internal Medicine 04/01/23 Leg Assembler Relationship Specialty Start Date End Date Blu Kothari MD [address] [facility] [address] [place] [address] PCP - General Internal Medicine 04/01/23 Blu Kothari MD [address] [facility] [address] [place] [address] PCP - ACO Reach 12/31/24 Leg Assembler Relationship Specialty Start Date End Date Blu Kothari MD [address] [facility] [address] [place] [address] PCP - General Internal Medicine 04/01/23 Blu Kothari MD [address] [facility] [address] [place] [address] PCP - ACO Reach 12/31/24 Leg Assembler Relationship Specialty Start Date End Date Blu Kothari MD [address] [facility] [address] [place] [address] PCP - General Internal Medicine 04/01/23 Blu Kothari MD [address] [facility] [address] [place] [address] PCP - ACO Reach 12/31/24 Leg Assembler Relationship Specialty Start Date End Date Blu Kothari MD [address] [facility] [address] [place] [address] PCP - General Internal Medicine 04/01/23 Blu Kothari MD [address] [facility] [address] [place] [address] PCP - ACO Reach 12/31/24 Leg Assembler Relationship Specialty Start Date End Date Blu Kothari MD [address] [facility] [address] [place] [address] PCP - General Internal Medicine 04/01/23 Blu Kothari MD [address] [facility] [address] [place] [address] PCP - ACO Reach 12/31/24 Leg Assembler Relationship Specialty Start Date End Date Blu Kothari MD [address] [facility] [address] [place] [address] PCP - General Internal Medicine 04/01/23 Blu Kothari MD [address] [facility] [address] [place] [address] PCP - ACO Reach 12/31/24 Team Status: Active Member Role Status Dates Blu Kothari II MD Primary Care Provider Active Team Status: Inactive Member Role Status Dates Blu Kothari II MD Primary Care Provid er, Attending Provider Active Start: March 18, 2025 End: March 18, 2025 Leg Assembler Relationship Specialty Start Date End Date Blu Kothari MD [address] [facility] [address] [place] [address] PCP - General Internal Medicine 04/01/23 Blu Kothari MD [address] [facility] [address] [place] [address] PCP - ACO Reach 12/31/24 Goals (unrecognized [...] BE BASED ON THE PRIMARY CLINICAL RECORDS. [facility]. provides no warranty or guarantee of the accuracy or completeness of information in this document.
--- OUTSIDE RECORDS SUMMARY | 2025-05-02 06:46 | XMS_ITS | Encounter Summary ---
Author Organization [facility] Address [address] [place] [address] Care Team Providers Care Bridge Repairer Name Role Phone Blu Kothari MD Primary Care Provider [phone] Blu Kothari MD Unavailable [phone] Encounter Details Date Type Department Care Team (Late st Contact Info) Description 03/18/2025 External Result Encounter [facility] External Department Unsolicited Blu Kothari MD [address] [facility] [address] [place] [address] Social History Tobacco Use Types Packs/Day Years Used Date Smoking Tobacco: Former Cigarettes Smokeless Tobacco: Never Alcohol Use Standard Drinks/Week Comments Yes 0 (1 standard drink = 0.6 oz pur e alcohol) caffeine: 1-2 cups per day PHQ-2 Answer Date Recorded Patient Health Questionnaire-2 Score 0 03/07/2025 Comments Unknown Sex and Gender Information Value Date Recorded Sex Assigned at Not on file Legal Sex Female 7:17 PM EDT Gender Identity Not on file Sexual Orientation Not on file documented as of this encounter Plan of Treatment Not on file documented as of this encounter Procedures Procedure Name Priority Date/Time Associated Diagnosis Comments MR LUMBAR SPINE WO CONTRAST 03/18/2025 3:09 PM EDT documented in this encounter Results * MR lumbar spine wo contrast (03/18/2025 3:09 PM EDT) Anatomical Region Laterality Modality Spine, L-spine Magnetic Resonan ce 03/18/2025 3:09 PM EDT Impressions 03/18/2025 3:51 PM EDT Psvb-vi-qkjncvgp multilevel degenerative changes without high-grade canal or neural foraminal narrowing. Moderate left neural foraminal narrowing at L5-S1 Impression dictated by: Ever Odonnell M.D. 03/18/2025 3:49 PM Dictation Location: [place] [address] Transcribed By: [facility] 03/18/25 1549 Dictated By: Ever Odonnell MD 03/18/25 1509 Signed By: <Electronically signed by Ever Odonnell MD in [place]> 03/18/25 1549 Narrative 03/18/2025 3:51 PM EDT [facility] Main [place] [address] [place] [address] MRI Report Signed Patient: Patricia Gonzalez MR#: [id number] : 1955 Acct:[id number] Age/Sex: 69 / F ADM Date: 03/18/25 Loc: Room: Type: [facility] Attending Dr: Blu Kothari II, MD Copies [...] narrowing identified. L2-3: Broad-based disc bulge with ynre-mn-viepfndb facet arthropathy. Minimal foraminal narrowing. Canal is patent. L3-L4: Circumferential disc bulge with moderate facet arthropathy. Mild neural foraminal narrowing. Minimal central canal stenosis. L4-5: Disc desiccation. Moderate disc facet arthropathy. No significant central canal or neural from narrowing identified. L5-S1: Circumferential disc bulge with moderate facet arthropathy. Moderate right moderate left neural foraminal narrowing. MR/MR lumbar spine wo con Procedure Note Radiology, Radiologist, MD - 03/18/2025 [facility] Main [place] [address] [place] [address] MRI Report Signed Patient: Naren Gonzalez#: [id number] : 5Acct:[id number] Age/Sex: 69 / FADM Date: 03/18/25 Loc: MR Room:Type: [facility] Attending Dr: Blu Kothari II, MD Copies to: Blu Kothari II, MD Ordering Provider: Blu Kothari II, MD Date of Service: 03/18/25 MR/MR lumbar spine wo con:M47.27,M41.25,M54.369 MRI lumbar spine performed without contrast INDICATION: Pain, back pain for 3 years, heavy lifting at work COMPARISON: X-rays lumbar spine 09/05/2015 and MRI lumbar spine 10/23/2015 FINDINGS: Mild levocurvature. Lumbar vertebral heights maintained.Slight heterogeneity of the bone marrow signal noted. There are minimal endplate marrow changes L2-3and L1- L2. Moderate multilevel facet arthropathy. Disc space narrowing, mild L2-L4, L1-2, andL5-S1. Minimal anterolisthesis L3 on L4 1 to 2 mm. The conus medullaris terminatesnormally at mid L1. Nerve roots of the cauda equina unremarkable. Paraspinal soft tissues areunremarkable. T12-L1: Minimal broad-based disc bulge with right subarticular zoneprotrusion. Mild facet arthropathy. No central canal or neural foraminal narrowing. L1-2: Mild facet arthropathy. No significant disease central canal orneural from narrowing identified. L2-3: Broad-based disc bulge with esfx-gp-hijrbzpm facet arthropathy.Minimal foraminal narrowing. Canal is patent. L3-L4: Circumferential disc bulge with moderate facet arthropathy. Mildneural foraminal narrowing. Minimal central canal stenosis. L4-5: Disc desiccation. Moderate disc facet arthropathy. No significantcentral canal or neural from narrowing identified. L5-S1: Circumferential disc bulge with moderate facet arthropathy.Moderate right moderate left neural foraminal narrowing. MR/MR lumbar spine wo con IMPRESSION: Wcgv-gw-kaecipnt multilevel degenerative changes without high-grade canalor neural foraminal narrowing. Moderate left neural foraminal narrowing at L5-S1 Impression dictated by: Ever Odonnell M.D. 03/18/2025 3:49 PM Dictation Location: [facility] Transcribed By: [facility] 03/18/25 1549 Dictated By: Ever Odonnell MD 03/18/25 1509 Signed By: <Electronically signed by Ever Odonnell MD in [place]> 03/18/25 1549 Blu Kothari MD IMG MRI PROCEDURES Final Resul t documented in this encounter Visit Diagnoses Not on filedocumented in this encounter Additional Health Concerns Assessment Noted Time PHQ-9 Depression Total Score: 0 08/20/20 24 8:00 AM EDT documented as of this encounter Care Teams Bridge Repairer Relationship Specialty Start Date End Date Blu Kothari MD [address] [facility] [address] [place] [address] PCP - General Internal Medicine 04/01/23 Blu Kothari MD [address] [facility] [address] [place] [address] PCP - ACO Reach 12/31/24 04/26/25 documented as of this encounter
--- OUTSIDE RECORDS SUMMARY | 2025-05-02 06:46 | XMS_ITS | Encounter Summary ---
Author Organization [facility] Address [address] [facility] [place] [address] Care Team Providers Care Facing Cutting Machine Operator Name Role Phone Blu Kothari MD Primary Care Provider [phone] Blu Kothari MD Unavailable [phone] Encounter Details Date Type Department Care Team (Late st Contact Info) Description 12/03/2023 Abstract [facility] [address] [facility] [address] [place] [id number] Blu Kothari MD [address] [facility] [address] [place] [address] Social History Tobacco Use Types Packs/Day Years [...] on filedocumented in this encounter Care Teams Facing Cutting Machine Operator Relationship Specialty Start Date End Date Blu Kothari MD [address] [facility] [address] [place] [address] PCP - General Internal Medicine 04/01/23 Blu Kothari MD [address] [facility] [address] [place] [address] PCP - ACO Reach 12/31/24 04/26/25 documented as of this encounter
--- OUTSIDE RECORDS SUMMARY | 2025-05-02 06:46 | XMS_ITS | Encounter Summary ---
Author Organization [facility] Address [address] [facility] [place] [address] Care Team Providers Care Business Continuity Coordinator Name Role Phone Blu Kothari MD Primary Care Provider [phone] Blu Kothari MD Unavailable [phone] Encounter Details Date Type Department Care Team (Late st Contact Info) Description 11/05/2023 Orders Only [facility] [address] [facility] [address] [place] [id number] A, Unknown Practice [address] [place], [place] [id number] Social History Tobacco Use Types Packs/Day Years [...] Procedure Name Priority Date/Time Associated Diagnosis Comments ELECTROCARDIOGRAM REPORT Routine 023 8:12 AM EST documented in this encounter Results * Electrocardiogram Report (11/04/2023 8:12 AM EST) us Unknown Practice A [facility] ORDERABLES Final Result documented in this encounter Visit Diagnoses Not on filedocumented in this encounter Care Teams Business Continuity Coordinator Relationship Specialty Start Date End Date Blu Kothari MD [address] [facility] [address] [place] [address] PCP - General Internal Medicine 04/01/23 Blu Kothari MD [address] [facility] [address] [place] [address] PCP - ACO Reach 12/31/24 04/26/25 documented as of this encounter
--- OUTSIDE RECORDS SUMMARY | 2025-05-02 06:46 | XMS_ITS | Encounter Summary ---
Author Organization [facility] Address [address] [facility] [place] [address] Care Team Providers Care Oil Analyst Name Role Phone Blu Kothari MD Primary Care Provider [phone] Blu Kothari MD Unavailable [phone] Encounter Details Date Type Department Care Team (Late st Contact Info) Description 12/26/2023 Clinisync Result Encounter [facility] External Department Unsolicited Provider, Generic External Data Social History Tobacco Use Types Packs/Day Years [...] Procedure Name Priority Date/Time Associated Diagnosis Comments XR THORACIC SPINE 3V 12/26/2023 11:01 AM EST documented in this encounter Results * XR THORACIC SPINE 3V (12/26/2023 11:01 AM EST) Anatomical Region Laterality Modality Other 12/26/2023 11:0 1 AM EST Narrative 12/26/2023 11:04 AM EST The [address] [address] XRay Report Signed Patient: MIGUEL GONZALEZ MR#: [id number] : 1955 Acct:[id number] Age/Sex: 68 / F ADM Date: 12/26/23 Loc: RAD Attending Dr: Tierney Giordano GRAPHOTYPE OPERATOR Ordering Physician: Tierney Giordano NP Date of Service: 12/26/23 Procedure(s): XR thoracic spine 3V Accession Number(s): [id number] cc: BLU KOTHARI ; Tierney Giordano NP The [place] [address] Patient Name: MIGUEL GONZALEZ MRN: [id number] date: 1955 Sex: F Assigned Patient Location: [facility] Current Patient Location: RAD Accession/Order Number: [id number] Exam Date: 12/26/2023 10:18 Report Date: 12/26/2023 11:01 At the request of: TIERNEY GIORDANO Procedure: XR thoracic spine 3V EXAMINATION: XR thoracic spine 3V HISTORY: low/mid back pain , chronic COMPARISON: No relevant comparison available. FINDINGS: BONES: Moderate right convex curvature of mid thoracic spine. No fracture, spondylolisthesis, bone lesion. DISC SPACES: Multilevel mild degenerative disc disease. PARASPINOUS: Negative. No paraspinous abnormality is seen. OTHER: Negative. XR/XR thoracic spine 3V IMPRESSION: 1. Moderate dextroscoliosis of mid thoracic spine which may contribute patient's symptoms. 2. Multilevel mild degenerative disc disease. 3. No acute bone abnormality. Electronically authenticated by: JAMAL OCONNELL Date: 12/26/2023 11:01 Dictated By: Jamal Oconnell M.D. Signed By: 12/26/23 1104 DD/ 1101 TD/TT: Book Coverer: Procedure Note Radiology, Radiologist, MD - 12/29/2023 [place] [address] XRay Report Signed Patient: MIGUEL GONZALEZ LMR#: [id number] : 5Acct:[id number] Age/Sex: 68 / FADM Date: 12/26/23 Loc: RAD Attending Dr: Tierney Giordano NP Ordering Physician: Tierney Giordano NP Date of Service: 12/26/23 Procedure(s): XR thoracic spine 3V Accession Number(s): [id number] cc: BLU KOTHARI ; Tierney Giordano NP The [address] [address] Patient Name: MIGUEL GONZALEZ MRN: [id number] date: 1955 Sex: F Assigned Patient Location: RAD Current Patient Location: RAD Accession/Order Number: [id number] Exam Date: 12/26/2023 10:18 Report Date: 12/26/2023 11:01 At the request of: TIERNEY GIORDANO Procedure: XR thoracic spine 3V EXAMINATION: XR thoracic spine 3V HISTORY: low/mid back pain , chronic COMPARISON: No relevant comparison available. FINDINGS: BONES: Moderate right convex curvature of mid thoracic spine. No fracture, spondylolisthesis, bone lesion. DISC SPACES: Multilevel mild degenerative disc disease. PARASPINOUS: Negative. No paraspinous abnormality is seen. OTHER: Negative. XR/XR thoracic spine 3V IMPRESSION: 1. Moderate dextroscoliosis of mid thoracic spine which may contribute patient's symptoms. 2. Multilevel mild degenerative disc disease. 3. No acute bone abnormality. Electronically authenticated by: JAMAL OCONNELL Date: 12/26/2023 11:01 Dictated By: Jamal Oconnell M.D. Signed By:12/26/23 1104 DD/ 1101 TD/TT: Book Coverer: Generic External Data Provider [facility] Final Result documented in this encounter Visit Diagnoses Not on filedocumented in this encounter Care Teams Oil Analyst Relationship Specialty Start Date End Date Blu Kothari MD [address] [facility] [address] [place] [address] PCP - General Internal Medicine 04/01/23 Blu Kothari MD [address] [facility] [address] [place] [address] PCP - ACO Reach 12/31/24 04/26/25 documented as of this encounter
--- OUTSIDE RECORDS SUMMARY | 2025-05-02 06:46 | XMS_ITS | Clinical Summary ---
Author Organization [facility] Healthcare Address [address] [place] [address] Care Team Providers Care Executive Community Planning Name Role Phone Blu Kothari MD Primary Care Provider [phone] Allergies Active Allergy Reactions Criticality Noted Date Comments Marcio Inhibitors Cough 07/03/2023 Medications cyanocobalamin (Vitamin B-12) 1000 MCG tablet Take 1,000 mcg by mouth Daily Active Multiple Vitamin (Multivitamin Adult) tablet Daily Active CALCIUM-VITAMIN D PO Take by mouth Daily Active Early Branch-3 Fatty Acids (Fish Oil) 1000 MG capsule delayed-release Take by mouth Daily Active aspirin 81 MG EC tablet Take 81 mg by mouth Daily Active zinc gluconate 50 MG tablet Take 25 mg by mouth in the morning. Active alendronate (Fosamax) 70 MG tabletIndications: Age-related osteoporosis without current pathological fracture (CMS/HCC) TAKE 1 TABLET EVERY 7 DAYS IN THE MORNING WITH A FULL GLASS OF WATER, ON AN EMPTY STOMACH, AND DO NOT TAKE ANYTHING ELSE OR LIE DOWN FOR THE NEXT 30 MINUTES 4 tablet 11 5 Active rosuvastatin (Crestor) 10 MG tabletIndications: Primary hypertension (CMS/HCC) TAKE 1 TABLET BY MOUTH EVERY DAY 30 tablet 13 5 Active meloxicam (Mobic) 15 MG tabletIndications: Cervical spondylosis without myelopathy TAKE 1 TABLET BY MOUTH IN THE MORNING WITH FOOD 30 tablet 8 5 Active traMADol (Ultram) 50 MG tabletIndications: Lumbosacral spondylosis with radiculopathy Take 1 tablet (50 mg) by mouth every 6 (six) hours if needed for severe pain 60 tablet 1 5 Active omeprazole (PriLOSEC) [address] capsuleIndications :Gastroesophageal reflux disease without esophagitis TAKE 1 CAPSULE BY MOUTH EVERY DAY IN THE MORNING before a meal 100 capsule 3 5 Active amLODIPine (Norvasc) 2.5 MG tabletIndications: Primary hypertension (CMS/HCC) TAKE 1 TABLET BY MOUTH EVERY DAY 30 tablet 13 5 Active Active Problems Problem Noted Date Diagnosed Date Age-related osteoporosis wit hout current pathological fracture 12/29/2023 Cervical spondylosis without myelopathy 07/03/20 23 Elevated LDL cholesterol level 07/03/2023 Gastroesophageal reflux disease without esophagi tis 07/03/2023 History of hysterectomy 07/03/2023 Hypercalcemia 07/03/2023 Hypertension 07/03/2023 Insomnia 07/03/2023 Lumbar paraspinal muscle spasm 07/03/2023 Lumbosacral spondylosis with radiculopathy 07/03 Overweight (BMI 25.0-29.9) 07/03/2023 Post herpetic neuralgia 07/03/2023 Encounters Date Type Department Care Team Description 03/25/2025 9:00 AM EDT Office Visit [facility] [address] [facility] [address] [place] [address] Blu Kothari MD Lumbosacral spondylosis with radiculopathy (Primary Dx) 03/25/2025 Bamboo flowsheet [facility] [address] [facility] [address] [place] [address] Blu Kothari MD 03/25/2025 Travel 03/19/2025 Refill [facility] [address] [facility] [address] [place] [address] Blu Kothari MD Primary hypertension (CMS/HCC) 03/18/2025 External Result Encounter [facility] External Department Unsolicited Blu Kothari MD 03/13/2025 Refill [facility] [address] [facility] [address] [place] [address] Alexia Rose PA Gastroesophageal reflux disease without esophagitis 03/07/2025 9:15 AM EDT Office Visit [facility] [address] [facility] [address] [place] [address] Blu Kothari MD Lumbosacral spondylosis with radiculopathy (Primary Dx); Right flank pain, chronic; Other idiopathic scoliosis, thoracolumbar region; Lumbar disc narrowing 03/07/2025 Bamboo flowsheet [facility] [address] [facility] [address] [place] [address] Blu Kothari MD 03/07/2025 Travel 02/24/2025 2:45 PM EDT Ancillary Procedure [facility] [address] [place] [address] Right flank pain, chronic 02/24/2025 Travel 02/18/2025 9:00 AM EDT Office Visit [facility] [address] [facility] [address] [place] [address] Blu Kothari MD Lumbosacral spondylosis with radiculopathy (Primary Dx); Right flank pain, chronic 02/18/2025 Bamboo flowsheet [facility] [address] [facility] [address] [place] [address] Blu Kothari MD 02/18/2025 Travel from Last 3 Months Immunizations Immunization Administration Dates Next Due Influenza, High Dose Seasona l, Preservative Free 10/03/2024 Influenza, High-dose Seasona l, Quadrivalent, Preservative Free 11/10/2022,09/04/2021,08/17/2020 Influenza, Seasonal, Quadriv alent, Adjuvanted 08/07/2023 Pneumococcal Conjugate PCV 20 10/10/2024 Pneumococcal Polysaccharide PPSV23 06/20/2021 Tdap 04/05/2021 Zoster, Recombinant 03/02/2022,11/30/2021 Family History Medical History Relation Name Comments Diabetes Father Heart disease Father Stomach cancer Father Dementia Mother Relation Name Status Comments Father Mother Social History Tobacco Use Types Packs/Day Years Used Date Smoking Tobacco: Former Cigarettes Smokeless Tobacco: Never Tobacco Cessation:Counseling Given: Yes Alcohol Use Standard Drinks/Week Comments Yes 0 (1 standard drink = 0.6 oz pur e alcohol) caffeine: 1-2 cups per day PHQ-2 Answer Date Recorded Patient Health Questionnaire-2 Score 0 03/25/2025 Comments Unknown Sex and Gender Information Value Date Recorded Sex Assigned at Not on file Legal Sex Female 7:17 PM EDT Gender Identity Not on file Sexual Orientation Not on file Last Filed Vital Signs Vital Sign Reading Time Taken Comments Blood Pressure 164/102 03/25/2025 8:54 AM EDT Pulse 68 03/25/2025 8:54 AM EDT Temperature 36.9 C (98.5 F) 02/18/2024 10:32 AM EDT Respiratory Rate 16 03/25/2025 8:54 AM EDT Oxygen Saturation 98% 03/25/2025 8:54 AM EDT Inhaled Oxygen Concentration - - Weight 56.2 kg (123 lb 14.4 oz) 03/25/2025 8:54 AM EDT Height 144.8 cm (4' 9 ) 03/25/2025 8:54 AM EDT Body Mass Index 26.81 03/25/2025 8:54 AM EDT Plan of Treatment Health Maintenance Due Date Last Done Comments CT Colonography 1955 Colonoscopy 1955 FIT 1955 FOBT 1955 Sigmoidoscopy 1955 Mammogram 1995 Colorectal Cancer Screening 07/17/2026 FIT-DNA 07/17/2026 07/17/2023, 07/0 05/2020, 05/30/2020, Additional history exists Influenza Vaccine Completed 10/03/2024, , 11/10/2022, Additional history exists Pneumococcal Vaccine: 65+ Years Completed , 06/20/2021 Procedures Procedure Name Priority Date/Time Associated Diagnosis Comments MR LUMBAR SPINE WO CONTRAST 03/18/2025 3:[address] ABDOMEN PELVIS W IV CONTRAST Routine 02/24/2025 3:03 PM EDT Right flank pain, chronic CREATININE Routine 02/22/2025 1:02 PM EDT Right flank pain, chronic POCT URINALYSIS DIPSTICK Routine 02/18/2025 10:41 AM EDT Right flank pain, chronic LAB COLOGUARD COLON CANCER SCREEN Routine 07/17/2023 7:30 PM EDT Screening for colorectal cancer from Last 3 Months or Most Recently Relevant to Health Maintenance Results * MR lumbar spine wo contrast (03/18/2025 3:09 PM EDT) Anatomical Region Laterality Modality Spine, L-spine Magnetic Resonan ce 03/18/2025 3:09 PM EDT Impressions 03/18/2025 3:51 PM EDT Otxy-ux-eqxrhdmj multilevel degenerative changes without high-grade canal or neural foraminal narrowing. Moderate left neural foraminal narrowing at L5-S1 Impression dictated by: Ever Odonnell M.D. 03/18/2025 3:49 PM Dictation Location: [facility]--[facility] Transcribed By: [facility] 03/18/25 1549 Dictated By: Ever Odonnell MD 03/18/25 1509 Signed By: <Electronically signed by Ever Odonnell MD in OV> 03/18/25 1549 Narrative 03/18/2025 3:51 PM EDT [facility] [place] [address] MRI Report Signed Patient: Patricia Gonzalez MR#: [id number] : 1955 Acct:[id number] Age/Sex: 69 / F ADM Date: 03/18/25 Loc: Room: Type: [facility] Attending Dr: Blu Kothari II, MD Copies [...] narrowing identified. L2-3: Broad-based disc bulge with rrvs-lp-zmfffmwf facet arthropathy. Minimal foraminal narrowing. Canal is [...] Procedure Note Radiology, Radiologist, MD - 03/18/2025 [facility] [place] [address] [place] [address] MRI Report Signed Patient: Naren Gonzalez#: [id number] : 5Acct:[id number] Age/Sex: 69 / FADM Date: 03/18/25 Loc: Room:Type: [facility] Attending Dr: Blu Kothari II, MD Copies [...] narrowing identified. L2-3: Broad-based disc bulge with wflp-rd-iqdtnuku facet arthropathy.Minimal foraminal narrowing. Canal is patent. L3-L4: Circumferential disc bulge with moderate facet arthropathy. Mildneural foraminal narrowing. Minimal central canal stenosis. L4-5: Disc desiccation. Moderate disc facet arthropathy. No significantcentral canal or neural from narrowing identified. L5-S1: Circumferential disc bulge with moderate facet arthropathy.Moderate right moderate left neural foraminal narrowing. MR/MR lumbar spine wo con IMPRESSION: Enhw-iy-wtqhswvy multilevel degenerative changes without high-grade canalor neural foraminal narrowing. Moderate left neural foraminal narrowing at L5-S1 Impression dictated by: Ever Odonnell M.D. 03/18/2025 3:49 PM Dictation Location: [place] [address] Transcribed By: [facility] 03/18/25 1549 Dictated By: Ever Odonnell MD 03/18/25 1509 Signed By: <Electronically signed by Ever Odonnell MD in OV> 03/18/25 1549 Blu Kothari MD IMG MRI PROCEDURES Final Resul t * CT abdomen pelvis w IV contrast (02/24/2025 3:03 PM EDT) Anatomical Region Laterality Modality Body, Pelvis, Abdomen Computed T omography 02/24/2025 3:31 PM EDT Impressions 02/24/2025 3:53 PM EDT Impression: No evidence for hydronephrosis, cholecystitis or cholelithiasis, pancreatitis, nephrolithiasis, bowel obstruction or diverticulitis. Large amount of fecal material throughout the colon suggestive of constipation. Degenerative changes are seen in the spine and there is a prominent scoliosis ELECTRONICALLY SIGNED BY: Pérez Courtney DO Narrative 02/24/2025 3:[address] of the abdomen and Pelvis CTDI [...] Bladder: Unremarkable. No mass. Reproductive: Surgically absent. Procedure Note Pérez Courtney, - 02/24/2025 CT of the abdomen and Pelvis CTDI is 27.27 mGy and DLP is 1284.81 mGy-cm. Technique: Spiral CT of the abdomen and pelvis was performed after theintravenous infusion of 100 cc of Isovue 300 following a 1 and 5-minutedelay. Reconstructed sagittal and coronal images were obtained. Findings: Comparison: No prior Lung bases: Motion artifact is seen in the bases of the lungs. ABDOMEN: Liver: Unremarkable. No mass. Gallbladder and bile ducts: Unremarkable. No calcified stones. Noductal dilation. Pancreas: Unremarkable. No mass. No ductal dilation. Spleen: Unremarkable. No splenomegaly. Adrenals: Unremarkable. No mass. Kidneys and ureters: No hydronephrosis or obstructing stone. Stomach and bowel: There is a small hiatal hernia. Evaluation of thestomach is limited by under distention. No small bowel obstruction. No mucosal thickening. Alarge amount of fecal material is seen throughout the colon. Intraperitoneal space: Unremarkable. No free air. No significant fluidcollection. Bones/joints: No acute fracture. No dislocation. S-shaped scoliosis.Severe intervertebral disc space narrowing at T12-L1 and L5-S1. Soft tissues: Unremarkable. Vasculature: Unremarkable. No abdominal aortic aneurysm. Lymph nodes: No bulky adenopathy, or pathologically enlarged lymph nodesseen. PELVIS: Appendix: Surgically absent. Bladder: Unremarkable. No mass. Reproductive: Surgically absent. IMPRESSION: Impression: No evidence for hydronephrosis, cholecystitis or cholelithiasis,pancreatitis, nephrolithiasis, bowel obstruction or diverticulitis. Largeamount of fecal material throughout the colon suggestive ofconstipation. Degenerative changes are seen in the spine and there is a prominentscoliosis ELECTRONICALLY SIGNED BY: Pérez Courtney DO Blu Kothari MD IMG CT PROCEDURES Final Result * Creatinine, Serum (02/22/2025 1:02 PM EDT) Creatinine 0.55 0.50 - 1.05 mg/dL [facility] EGFR 99 > OR = 60 mL/min/1.73m 2 [facility] Blood Venous blood specimen / Unknown 02/22/2025 1:02 PM EDT 02/22/2025 1:02 PM EDT Narrative Resulting Agency Comment Performing Organization Information Site ID: QPT Name: [facility] Address: [address] [place] [address], [address] [place] [id number] Director: Truman Liao MD Blu Kothari MD LAB BLOOD ORDERABLES Final Res ult [facility] * POCT Urinalysis dipstick (02/18/2025 10:41 AM EDT) Glucose, UA Negative Negative - 2000(110) ++++ mg/dL Bilirubin, UA Negative Negative - 4(70) +++ mg/dL Ketones, UA Negative Negative - 160(16) ++++ mg/dL Spec Grav, UA 1.005 1 - 1.03 Blood, UA Negative Negative - 50 Tan/mcL pH, UA 6.5 5 - 9 Protein, UA Negative Negative - 2000(20) ++++ mg/dL Urobilinogen, UA 0.2 0.2 - 12 mg/dL Leukocytes, UA Negative Negative - 500+++ [place]/mcL Nitrite, UA Negative Negative - Positive Urine 02/18/2025 10:4 1 AM EDT Blu Kothari MD POINT OF CARE TEST ENTER/EDIT ORDERABLES Final Result * Cologuard?? colon cancer screening (07/17/2023 7:30 PM EDT) NONINV COLON CA DNA+OCC BLD SCRN STL-IMP Negative Negative 07/25/2023 6:[address] (CLIA #:[id number]) Comment: NEGATIVE TEST RESULT. A negative Cologuard result indicates a low likelihood that a colorectal cancer (CRC) or advanced adenoma (adenomatous polyps with more advanced pre-malignant features) is present. The chance that a person with a negative Cologuard test has a colorectal cancer is less than 1 in 1500 (negative predictive value >99.9%) or has an advanced adenoma is less than 5.3% (negative predictive value 94.7%). These data are based on a prospective cross-sectional study of 10,000 individuals at average risk for colorectal cancer who were screened with both Cologuard and colonoscopy. (Jo-Ann Jasso al, N Engl J Med 2014;370(14):8859-3871) The normal value (reference range) for this assay is negative. COLOGUARD RE-SCREENING RECOMMENDATION: Periodic colorectal cancer screening is an important part of preventive healthcare for asymptomatic individuals at average risk for colorectal cancer. Following a negative Cologuard result, the [place] [employer] and U.S. Multi-Society Task Force screening guidelines recommend a Cologuard re-screening interval of 3 years. References: [place] [employer] Guideline for Colorectal Cancer Screening: https://www.cancer.org/cancer/iwxbw-pblrqp-aqrfdq/xaidhxxyl-vadqqdrsc-jjqfuge/ac s-rec ommendations.html.; Ez DK, Marla CR, Jessica HameedK, Colorectal Cancer Screening: Recommendations for Physicians and Patients from the U.S. Multi-Society Task Force on Colorectal Cancer Screening , Am J Gastroenterology 2017; 112:9788-2199. TEST DESCRIPTION: Composite algorithmic analysis of stool DNA-biomarkers with hemoglobin immunoassay. Quantitative values of individual biomarkers are not reportable and are not associated with individual biomarker result reference ranges. Cologuard is intended for colorectal cancer screening of adults of either sex, 45 years or older, who are at average-risk for colorectal cancer (CRC). Cologuard has been approved for use by the U.S. FDA. The performance of Cologuard was established in a cross sectional study of average-risk adults aged 50-84. Cologuard performance in patients ages 45 to 49 years was estimated by sub-group analysis of near-age groups. Colonoscopies performed for a positive result may find as the most clinically significant lesion: colorectal cancer [4.0%], advanced adenoma (including sessile serrated polyps greater than or equal to 1cm diameter) [20%] or non- advanced adenoma [31%]; or no colorectal neoplasia [45%]. These estimates are derived from a prospective cross-sectional screening study of 10,000 individuals at average risk for colorectal cancer who were screened with both Cologuard and colonoscopy. (Jo-Ann Jasso al, N Engl J Med 2014;370(14):4899-4321.) Cologuard may produce a false negative or false positive result (no colorectal cancer or precancerous polyp present at colonoscopy follow up). A negative Cologuard test result does not guarantee the absence of CRC or advanced adenoma (pre-cancer). The current Cologuard screening interval is every 3 years. ([place] [employer] and U.S. Multi-Society Task Force). Cologuard performance data in a 10,000 patient pivotal study using colonoscopy as the reference method can be accessed at the following location: www.[employer]Car/results. Additional description of the Cologuard test process, warnings and precautions can be found at www.mycujoord.com. Stool specimen (specimen) 07/17/2023 7:30 PM EDT 07/19/2023 4:57 PM EDT us Blu Kothari MD LAB MOLECULAR DIAGNOSTICS DANA HOLLIS Final Result .[employer] (CLIA #:[id number]) [address] [place] [id number], [employer] (CLIA #:[id number]) [address] [place] [id number] from Last 3 Months or Most Recently Relevant to Health Maintenance Insurance [employer] Care Teams Executive Community Planning Relationship Specialty Start Date End Date Blu Kothari MD [address] [facility] [address] [place] [address] PCP - General Internal Medicine 04/01/23
--- OUTSIDE RECORDS SUMMARY | 2025-05-02 06:46 | XMS_ITS | Encounter Summary ---
Author Organization [facility] Address [address] [facility] [place] [address] Care Team Providers Care Forestry Consultant Name Role Phone Blu Kothari MD Primary Care Provider [phone] Blu Kothari MD Unavailable [phone] Encounter Details Date Type Department Care Team (Late st Contact Info) Description 08/04/2023 Abstract [facility] [address] [facility] [address] [place] [id number] Blu Kothari MD [address] [facility] [address] [place] [address] Social History Tobacco Use Types Packs/Day Years [...] on filedocumented in this encounter Care Teams Forestry Consultant Relationship Specialty Start Date End Date Blu Kothari MD [address] [facility] [address] [place] [address] PCP - General Internal Medicine 04/01/23 Blu Kothari MD [address] [facility] [address] [place] [address] PCP - ACO Reach 12/31/24 04/26/25 documented as of this encounter
--- OUTSIDE RECORDS SUMMARY | 2025-05-02 06:46 | XMS_ITS | Encounter Summary ---
Author Organization [facility] Address [address] [facility] [place] [address] Care Team Providers Care Cotton Ball Bagger Name Role Phone Blu Kothari MD Primary Care Provider [phone] Blu Kothari MD Unavailable [phone] Encounter Details Date Type Department Care Team (Late st Contact Info) Description 08/23/2024 Abstract [facility] [address] [facility] [address] [place] [id number] Blu Kothari MD [address] [facility] 110 [place] [address] Social History Tobacco Use Types Packs/Day Years Used Date Smoking Tobacco: Former Cigarettes Smokeless Tobacco: Never Alcohol Use Standard Drinks/Week Comments Yes 0 (1 standard drink = 0.6 oz pur e alcohol) caffeine: 1-2 cups per day PHQ-2 Answer Date Recorded Patient Health Questionnaire-2 Score 0 08/20/2024 Comments Unknown Sex and Gender Information Value [...] documented as of this encounter Care Teams Cotton Ball Bagger Relationship Specialty Start Date End Date Blu Kothari MD [address] [facility] 110 [place] [address] PCP - General Internal Medicine 04/01/23 Blu Kothari MD [address] [facility] 110 [place] [id number] PCP - ACO Reach 12/31/24 04/26/25 documented as of this encounter
--- OUTSIDE RECORDS SUMMARY | 2025-05-02 06:46 | XMS_ITS | Encounter Summary ---
Author Organization [facility] Address [address] [facility] [place] [address] Care Team Providers Care Instructor Extension Work Name Role Phone Blu Kothari MD Primary Care Provider [phone] Blu Kothari MD Unavailable [phone] Encounter Details Date Type Department Care Team (Late st Contact Info) Description 02/23/2024 Abstract [facility] [address] [facility] [address] [place] [address] Blu Kothari MD [address] [facility] [address] [place] [address] Social History Tobacco Use Types Packs/Day Years [...] on filedocumented in this encounter Care Teams Instructor Extension Work Relationship Specialty Start Date End Date Blu Kothari MD [address] [facility] [address] [place] [address] PCP - General Internal Medicine 04/01/23 Blu Kothari MD [address] [facility] [address] [place] [address] PCP - ACO Reach 12/31/24 04/26/25 documented as of this encounter
--- OUTSIDE RECORDS SUMMARY | 2025-05-02 06:46 | XMS_ITS | Encounter Summary ---
Author Organization [facility] Address [address] [facility] [place] [address] Care Team Providers Care Assembler Radio And Electrical Name Role Phone Blu Kothari MD Primary Care Provider [phone] Blu Kothari MD Unavailable [phone] Encounter Details Date Type Department Care Team (Late st Contact Info) Description 12/11/2023 Abstract [facility] [address] [facility] 110 [place] [address] Blu Kothari MD [address] [facility] 110 [place] [address] Social History Tobacco Use Types Packs/Day Years [...] on filedocumented in this encounter Care Teams Assembler Radio And Electrical Relationship Specialty Start Date End Date Blu Kothari MD [address] [facility] 110 [place] [address] PCP - General Internal Medicine 04/01/23 Blu Kothari MD [address] [facility] [address] [place] [address] PCP - ACO Reach 12/31/24 04/26/25 documented as of this encounter
--- OUTSIDE RECORDS SUMMARY | 2025-05-02 06:46 | XMS_ITS | Encounter Summary ---
Author Organization [facility] Address [address] [facility] [place] [address] Care Team Providers Care Game Developer Name Role Phone Blu Kothari MD Primary Care Provider [phone] Blu Kothari MD Unavailable [phone] Encounter Details Date Type Department Care Team (Late st Contact Info) Description 12/29/2023 Orders Only [facility] [address] [facility] [address] [place] [address] A, Unknown Practice [address] [place], [place] [address] Social History Tobacco Use Types Packs/Day Years [...] Procedure Name Priority Date/Time Associated Diagnosis Comments X-RAY : SPINE, THORACIC Routine 12/26/2023 2:22 PM EST XR THORACIC SPINE 3 VIEWS Routine 12/26/2023 9:03 AM EST documented in this encounter Results * X-RAY : SPINE, THORACIC (12/26/2023 2:22 PM EST) Anatomical Region Laterality Modality Radiographic Savana ging us [facility] Provider Unallocated MD IMG XR PROCEDURES F inal Result * XR thoracic spine 3 views (12/26/2023 9:03 AM EST) Anatomical Region Laterality Modality Spine, T-spine Radiographic [place] ging us Unknown Practice A IMG XR PROCEDURES Final Resul t documented in this encounter Visit Diagnoses Not on filedocumented in this encounter Care Teams Game Developer Relationship Specialty Start Date End Date Blu Kothari MD [address] [facility] 110 [place] [address] PCP - General Internal Medicine 04/01/23 Blu Kothari MD [address] [place] [facility] 110 [place] [address] PCP - ACO Reach 12/31/24 04/26/25 documented as of this encounter
--- OUTSIDE RECORDS SUMMARY | 2025-05-02 06:46 | XMS_ITS | Encounter Summary ---
Author Organization [facility] Address [address] [facility] [place] [address] Care Team Providers Care Stripper Shovel Operator Name Role Phone Blu Kothari MD Primary Care Provider [phone] Blu Kothari MD Unavailable [phone] Encounter Details Date Type Department Care Team (Late st Contact Info) Description 07/15/2023 Abstract [facility] [address] [facility] [address] [place] [address] Blu Kothari MD [address] [facility] [address] [place] [address] Social History Tobacco Use Types Packs/Day Years [...] on filedocumented in this encounter Care Teams Stripper Shovel Operator Relationship Specialty Start Date End Date Blu Kothari MD [address] [facility] [address] [place] [address] PCP - General Internal Medicine 04/01/23 Blu Kothari MD [address] [facility] [address] [place] [address] PCP - ACO Reach 12/31/24 04/26/25 documented as of this encounter
--- OUTSIDE RECORDS SUMMARY | 2025-05-02 06:46 | XMS_ITS | Clinical Summary ---
Author Organization [employer] [facility] Address [id number] [address] [place] [address] Care Team Providers Care Sports Physician Name Role Phone Blu Kothari MD Primary Care Provider [phone] Allergies No known active allergies Medications rosuvastatin (CRESTOR) 10 mg tablet Take 10 mg by mouth daily. Active omeprazole (PriLOSEC) 40 mg capsule Take 40 mg by mouth daily. Active amLODIPine (NORVASC) 2.5 mg tablet Take 2.5 mg by mouth daily. Active meloxicam (MOBIC) 15 mg tablet Take 15 mg by mouth daily. Active traMADoL (ULTRAM) 50 mg tablet Take 50 mg by mouth every 6 (six) hours as needed for pain. Active cyanocobalamin (vitamin B-12) 100 MCG tablet Take 100 mcg by mouth daily. Active calcium carbonate (OS-TANA) 500 mg calcium (1,250 mg) chewable tablet Chew 1 tablet and swallow daily. Active magnesium oxide (MAG-OX) 400 mg tablet Take 400 mg by mouth daily. Active zinc gluconate 50 mg tablet Take 25 mg by mouth daily. Active cholecalciferol , vitamin D3, 400 units tablet Take 400 Units by mouth daily. Active wmibhwvo-cbsc-U A-calcium &mins (THERAGRAN-M) 9 mg iron-400 mcg tablet Take 1 tablet by mouth daily. Active omega 9-eaj-uco-fish oil (FISH OIL) 300-1,000 mg capsule Take by mouth. Active aspirin 81 mg Take 81 mg by mouth daily. Active Social History Tobacco Use Types Packs/Day Years Used Date Smoking Tobacco: Former Smokeless Tobacco: Never Alcohol Use Standard Drinks/Week Comments Yes 0 (1 standard drink = 0.6 oz pur e alcohol) occasional PHQ-2 Answer Date Recorded Total Score 0 06/14/2020 Childcare Answer Date Recorded Childcare Unknown 05/05/2019 Employment Answer Date Recorded Employment Unknown 05/05/2019 Purpose - Life Answer Date Recorded Purpose and direction in life Unknown Comments No Sex and Gender Information Value Date Recorded Sex Assigned at Not on file Legal Sex Female 12:12 PM EDT Gender Identity Not on file Sexual Orientation Not on file Last Filed Vital Signs Vital Sign Reading Time Taken Comments Blood Pressure 112/95 06/14/2020 2:45 PM EDT Pulse 64 06/14/2020 2:45 PM EDT Temperature 36.8 C (98.2 F) 06/14/2020 12:41 PM EDT Respiratory Rate 16 06/14/2020 12:41 PM EDT Oxygen Saturation 95% 06/14/2020 2:45 PM EDT Inhaled Oxygen Concentration - - Weight 52.6 kg (116 lb) 06/09/2020 1:35 PM EDT Height 142.2 cm (4' 8 ) 06/09/2020 1:35 PM EDT Body Mass Index 26.01 06/09/2020 1:35 PM EDT Plan of Treatment Health Maintenance Due Date Last Done Comments Depression Screening 1967 Tobacco Screening 1967 Adult BMI Screening 1973 DTaP,Tdap and Td Vaccines (1 - Tdap) 1974 Zoster (Shingles) Vaccine (1 of 2) 2005 Fall Risk Screening 2020 Influenza Vaccine 07/25/2025 Medical Devices Not on file Insurance [employer] Care Teams Sports Physician Relationship Specialty Start Date End Date Blu Kothari MD [address] [facility] [address] [place] [address] PCP - General Internal Medicine 06/09/20
--- OUTSIDE RECORDS SUMMARY | 2025-05-02 06:46 | XMS_ITS | Encounter Summary ---
Author Organization [facility] Address [address] [facility] [place] [address] Care Team Providers Care Electronics Processor Name Role Phone Blu Kothari MD Primary Care Provider [phone] Blu Kohtari MD Unavailable [phone] Encounter Details Date Type Department Care Team (Late st Contact Info) Description 08/15/2023 Clinisync Result Encounter [facility] External Department Unsolicited Blu Kothari MD [address] [facility] [address] [place] [address] Social History Tobacco Use Types Packs/Day Years [...] Name Priority Date/Time Associated Diagnosis Comments XR DEXA AXIAL SKELETON 08/15/2023 9:47 AM EDT documented in this encounter Results * XR DEXA AXIAL SKELETON (08/15/2023 9:47 AM EDT) Anatomical Region Laterality Modality Other 08/15/2023 9:47 AM EDT Narrative 08/15/2023 9:47 AM EDT The [address] [address] XRay Report Signed Patient: Miguel Gonzalez MR#: [id number] : 1955 Acct:[id number] Age/Sex: 68 / F ADM Date: 08/15/23 Loc: [facility] Attending Dr: BLU KOTHARI Ordering Physician: BLU KOTHARI Date of Service: 08/15/23 Procedure(s): XR DEXA axial skeleton Accession Number(s): [id number] cc: BLU KOTHARI The [place] [address] Patient Name: MIGUEL GONZALEZ MRN: [id number] date: 1955 Sex: F Assigned Patient Location: [facility] Current Patient Location: [facility] Accession/Order Number: [id number] Exam Date: 08/15/2023 08:32 Report Date: 08/15/2023 09:47 At the request of: BLU KOTHARI Procedure: XR DEXA axial skeleton EXAMINATION: XR DEXA axial skeleton HISTORY: Estrogen Deficiency E28.39 COMPARISON: No relevant comparison available. TECHNIQUE: Dual-energy X-ray absorptiometry (DXA) was performed. FINDINGS: SPINE ANALYSIS: Average bone mineral density is 0.982 g/cm2. T-score (standard deviation relative to young adult mean): -1.6 . HIP ANALYSIS: Lowest bone mineral density is within the left femoral trochanter, 0.489 g/cm2. T-score (standard deviation relative to young adult mean): -3.1 . XR/XR DEXA axial skeleton IMPRESSION: World [employer] Organization Classification: Osteoporosis - High Fracture Risk Electronically authenticated by: JAMAL OCONNELL Date: 08/15/2023 09:47 Dictated By: Jamal Oconnell M.D. Signed By: 08/15/2349 DD/ 6 TD/TT: Artificial Cherry Maker: Procedure Note Radiology, Radiologist, MD - 08/15/2023 [place] [address] XRay Report Signed Patient: Miguel Gonzalez LMR#: [id number] : 5Acct:[id number] Age/Sex: 68 / FADM Date: 08/15/23 Loc: RAD Attending Dr: BLU KOTHARI Ordering Physician: BLU KOTHARI Date of Service: 08/15/23 Procedure(s): XR DEXA axial skeleton Accession Number(s): [id number] cc: BLU KOTHARI [place] [id number] Patient Name: MIGUEL GONZALEZ MRN: [facility]:[id number] date: 1955 Sex: F Assigned Patient Location: RAD Current Patient Location: RAD Accession/Order Number: [id number] Exam Date: 08/15/2023 08:32 Report Date: 08/15/2023 09:47 At the request of: BLU KOTHARI Procedure: XR DEXA axial skeleton EXAMINATION: XR DEXA axial skeleton HISTORY: Estrogen Deficiency E28.39 COMPARISON: No relevant comparison available. TECHNIQUE: Dual-energy X-ray absorptiometry (DXA) was performed. FINDINGS: SPINE ANALYSIS: Average bone mineral density is 0.982 g/cm2. T-score (standard deviation relative to young adult mean): -1.6 . HIP ANALYSIS: Lowest bone mineral density is within the left femoral trochanter, 0.489 g/cm2. T-score (standard deviation relative to young adult mean): -3.1 . XR/XR DEXA axial skeleton IMPRESSION: World [employer] Organization Classification: Osteoporosis - High Fracture Risk Electronically authenticated by: JAMAL OCONNELL Date: 08/15/2023 09:47 Dictated By: Jamal Oconnell M.D. Signed By:08/15/23 0949 DD/ TD/TT: Artificial Cherry Maker: Blu Kothari MD [facility] Final Result documented in this encounter Visit Diagnoses Not on filedocumented in this encounter Care Teams Electronics Processor Relationship Specialty Start Date End Date Blu Kothari MD [address] [facility] [address] [place] [address] PCP - General Internal Medicine 04/01/23 Blu Kothari MD [address] [facility] [address] [place] [address] PCP - ACO Reach 12/31/24 04/26/25 documented as of this encounter
--- OUTSIDE RECORDS SUMMARY | 2025-05-02 06:46 | XMS_ITS | Encounter Summary ---
Author Organization [facility] Address [address] [place] [address] Care Team Providers Care Avionics Mechanic Name Role Phone Blu Kothari MD Primary Care Provider [phone] Blu Kothari MD Unavailable [phone] Encounter Details Date Type Department Care Team (Late st Contact Info) Description 08/09/2023 Clinisync Result Encounter [facility] External Department Unsolicited [...] Name Priority Date/Time Associated Diagnosis Comments XR LUMBAR SPINE 6V W BENDING 08/09/2023 6:58 AM EDT documented in this encounter Results * XR LUMBAR SPINE 6V W BENDING (08/09/2023 6:58 AM EDT) Anatomical Region Laterality Modality Other 08/09/2023 6:58 AM EDT Narrative 08/09/2023 6:58 AM EDT The [address] [address] XRay Report Signed Patient: Miguel Gonzalez MR#: [id number] : 1955 Acct:[id number] Age/Sex: 68 / F ADM Date: 08/08/23 Loc: RAD Attending Dr: VianneyStaff Physician Aguilar Ordering Physician: Zeinab Mixon M.D. Date of Service: 08/08/23 Procedure(s): XR lumbar spine 6V w bending Accession Number(s): [id number] cc: BLU KOTHARI ; PhysicianZeinab M.D. The [place] [id number] Patient Name: MIGUEL GONZALEZ MRN: [id number] date: 1955 Sex: F Assigned Patient Location: [facility] Current Patient Location: Accession/Order Number: [id number] Exam Date: 08/08/2023 09:03 Report Date: 08/09/2023 06:58 At the request of: NON-STAFF PHYSICIAN Procedure: XR lumbar spine 6V w bending Exam: Radiographs: XR lumbar spine 6V w bending Reason for exam: Back Pain Comparison: None XR/XR lumbar spine 6V w bending IMPRESSION: No radiographically evident lumbar spine fractures. Lumbar spine degenerative changes with relatively preserved intervertebral disc heights. Mild broad-based lumbar curvature with apex of curvature to the left. No instability on flexion/extension views. Remainder unremarkable. Electronically authenticated by: TRACE JIMENEZ Date: 08/09/2023 06:58 Dictated By: Trace Jimenez M.D. Signed By: 08/09/23 0701 DD/ 0658 TD/TT: 5Th Grade Teacher: Procedure Note Radiology, Radiologist, MD - 08/15/2023 [place] [address] XRay Report Signed Patient: Miguel Gonzalez LMR#: [id number] : 5Acct:[id number] Age/Sex: 68 / FADM Date: 08/08/23 Loc: [facility] Attending Dr: VianneyStaff Physician Aguilar Ordering Physician: Zeinab Mixon M.D. Date of Service: 08/08/23 Procedure(s): XR lumbar spine 6V w bending Accession Number(s): [id number] cc: BLU KOTHARI ; Physician,Non-Staff Lauren The [place] [id number] Patient Name: MIGUEL GONZALEZ MRN: [id number] date: 1955 Sex: F Assigned Patient Location: [facility] Current Patient Location: Accession/Order Number: [id number] Exam Date: 08/08/2023 09:03 Report Date: 08/09/2023 06:58 At the request of: NON-STAFF PHYSICIAN Procedure: XR lumbar spine 6V w bending Exam: Radiographs: XR lumbar spine 6V w bending Reason for exam: Back Pain Comparison: None XR/XR lumbar spine 6V w bending IMPRESSION: No radiographically evident lumbar spine fractures. Lumbar spine degenerative changes with relatively preserved intervertebral disc heights. Mild broad-based lumbar curvature with apex of curvature to theleft. No instability on flexion/extension views. Remainder unremarkable. Electronically authenticated by: TRACE JIMENEZ Date: 08/09/2023 06:58 Dictated By: Trace Jimenez M.D. Signed By:08/09/23 0701 DD/ 0658 TD/TT: 5Th Grade Teacher: Generic External Data Provider [facility] Final Result documented in this encounter Visit Diagnoses Not on filedocumented in this encounter Care Teams Avionics Mechanic Relationship Specialty Start Date End Date Blu Kothari MD [address] [facility] [address] [place] [address] PCP - General Internal Medicine 04/01/23 Blu Kothari MD [address] [facility] [address] [place] [address] PCP - ACO Reach 12/31/24 04/26/25 documented as of this encounter
--- OUTSIDE RECORDS SUMMARY | 2025-05-02 06:46 | XMS_ITS | Encounter Summary ---
Author Organization [facility] Address [address] [place] [address] Care Team Providers Care Grey Tender Name Role Phone Blu Kothari MD Primary Care Provider [phone] Blu Kothari MD Unavailable [phone] Encounter Details Date Type Department Care Team (Late st Contact Info) Description 08/18/2023 Orders Only [facility] [address] [facility] [address] [place] [id number] A, Unknown Practice [address] [place], [place] [address] Social History Tobacco Use Types Packs/Day Years [...] Procedure Name Priority Date/Time Associated Diagnosis Comments DEXA BONE DENSITY Routine 08/15/2023 10:04 AM EDT XR DEXA AXIAL SKELETON* Routine 08/15/2023 9:50 AM EDT documented in this encounter Results * DEXA bone density (08/15/2023 10:04 AM EDT) Anatomical Region Laterality Modality Body Radiographic Savana ging us Unknown Practice A IMG DXA PROCEDURES Final Resu lt * XR DEXA AXIAL SKELETON* (08/15/2023 9:50 AM EDT) Anatomical Region Laterality Modality Radiographic Savana ging us Unknown Practice A IMG XR PROCEDURES Final Resul t documented in this encounter Visit Diagnoses Not on filedocumented in this encounter Care Teams Grey Tender Relationship Specialty Start Date End Date Blu Kothari MD [address] [facility] 110 [place] [address] PCP - General Internal Medicine 04/01/23 Blu Kothari MD [address] [facility] [address] [place] [address] PCP - ACO Reach 12/31/24 04/26/25 documented as of this encounter
--- OUTSIDE RECORDS SUMMARY | 2025-05-02 06:46 | XMS_ITS | Encounter Summary ---
Author Organization [facility] Address [address] [facility] [place] [address] Care Team Providers Care Legal Nurse Consultant Name Role Phone Blu Kothari MD Primary Care Provider [phone] Blu Kothari MD Unavailable [phone] Encounter Details Date Type Department Care Team (Late st Contact Info) Description 11/04/2023 Abstract [facility] [address] [facility] [address] [place] [phone] Blu Kothari MD [address] [facility] [address] [place] [address] Social History Tobacco Use Types Packs/Day Years [...] on filedocumented in this encounter Care Teams Legal Nurse Consultant Relationship Specialty Start Date End Date Blu Kothari MD [address] [facility] [address] [place] [address] PCP - General Internal Medicine 04/01/23 Blu Kothari MD [address] [facility] [address] [place] [address] PCP - ACO Reach 12/31/24 04/26/25 documented as of this encounter
--- OUTSIDE RECORDS SUMMARY | 2025-05-02 06:46 | XMS_ITS | Encounter Summary ---
Author Organization [facility] Address [address] [facility] [place] [address] Care Team Providers Care Testing Lead Name Role Phone Blu Kothari MD Primary Care Provider [phone] Blu Kothari MD Unavailable [phone] Encounter Details Date Type Department Care Team (Late st Contact Info) Description 11/10/2023 Abstract [facility] [address] [facility] 110 [place] [id number] Blu Kothari MD [address] [facility] 110 [place] [address] Social History Tobacco Use Types Packs/Day Years [...] on filedocumented in this encounter Care Teams Testing Lead Relationship Specialty Start Date End Date Blu Kothari MD [address] [facility] 110 [place] [address] PCP - General Internal Medicine 04/01/23 Blu Kothari MD [address] [facility] [address] [place] [address] PCP - ACO Reach 12/31/24 04/26/25 documented as of this encounter
[2025-05-02 07:02] VITALS: BP 169/87; PULSE 76; TEMP 36.2; O2SAT 100
[2025-05-02 07:46] VITALS: BP 166/90; BP 186/103; PULSE 77; PULSE 80; O2SAT 98
[2025-05-02] MEDS: BUPIVACAINE HCL 0.25% PF 25 MG/10 ML VIAL INJ (07:49)
[2025-05-02] MEDS: LIDOCAINE HCL 2% 400 MG/20 ML MDV INJ (07:49)
[2025-05-02] MEDS: IOHEXOL 240 MG/ML - 10 ML VIAL 24 MG INJ (07:49)
[2025-05-02] MEDS: METHYLPREDNISOLONE ACETATE 80 MG/ML VIAL INJ (07:49)
[2025-05-02] MEDS: 0.9 % SODIUM CHLORIDE 10 ML SYRINGE - SALINE FLUSH INJ (07:49)
--- NOTE | 2025-05-02 07:51 | P.ON_ITS ---
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 Informed consent was obtained and placed on the chart.? Patient was brought to the medical procedure unit and placed in the prone position where a timeout was completed verifying the correct patient, procedure site, position, and planned special equipment using sterile aseptic technique.? Under direct fluoroscopic visualization a 25-gauge Quincke tipped spinal needle was advanced to the designated neural foramen where contrast dye was injected to show adequate spread.? The needle was inserted at level right L4-5. There was no evidence of vascular or adverse uptake.? Epidural spread was appreciated.? The above- mentioned injectate was then placed in a 1.5 mL aliquot preceded by negative aspiration.? The needle was removed. The needle was inserted and the procedure repeated at level right L5-S1.? The surgery site was covered.? Patient was taken to the postprocedural recovery area and monitored for an appropriate length of time before found suitable for discharge in the accompaniment of a responsible adult. Anesthesia: Local Surgeon: Bouchra Angel Pathology: none sent Condition: stable Disposition: no change
== END 2025-05-02 07:55 | disposition home or self-care (01) ==
LOC: SURGOUT 06:43
PROVIDERS: PCP Internal Medicine; Visit Provider Anesthesiology
DX: M54.50 Low back pain, unspecified (principal); M48.062 Spinal stenosis, lumbar region with neurogenic claudication
CPT/HCPCS: 64483; 64484; J0665; J1010; Q9966

== ENCOUNTER 2025-05-19 07:46 | Outpatient (OUT) | payer OTHER, MEDICARE, SELFPAY ==
--- OUTSIDE RECORDS SUMMARY | 2025-05-19 07:48 | XMS_ITS | Clinical Summary ---
Author Organization [facility] Healthcare Address [address] [place] [address] Care Team Providers Care Director Of Campus Recreation Name Role Phone Blu Kothari MD Primary Care Provider [phone] Allergies Active Allergy Reactions Criticality Noted Date Comments Marcio Inhibitors Cough 07/03/2023 Medications cyanocobalamin (Vitamin B-12) 1000 MCG tablet Take 1,000 mcg by mouth Daily Active Multiple Vitamin (Multivitamin Adult) tablet Daily Active CALCIUM-VITAMIN D PO Take by mouth Daily Active Windsor-3 Fatty Acids (Fish Oil) 1000 MG capsule delayed-release Take by mouth Daily Active aspirin 81 MG EC tablet Take 81 mg by mouth Daily Active zinc gluconate 50 MG tablet Take 25 mg by mouth in the morning. Active alendronate (Fosamax) 70 MG tabletIndications: Age-related osteoporosis without current pathological fracture TAKE 1 TABLET EVERY 7 DAYS IN THE MORNING WITH A FULL GLASS OF WATER, ON AN EMPTY STOMACH, AND DO NOT TAKE ANYTHING ELSE OR LIE DOWN FOR THE NEXT 30 MINUTES 4 tablet 11 5 Active rosuvastatin (Crestor) 10 MG tabletIndications: Primary hypertension TAKE 1 TABLET BY MOUTH EVERY DAY [...] amLODIPine (Norvasc) 2.5 MG tabletIndications: Primary hypertension TAKE 1 TABLET BY MOUTH EVERY DAY [...] [facility] [address] [facility] [address] [place] [address] Blu Kothari MD Lumbosacral spondylosis with radiculopathy (Primary Dx) 03/25/2025 Bamboo flowsheet [facility] [address] [facility] [address] [place] [address] Blu Kothari MD 03/25/2025 Travel 03/19/2025 Refill [facility] [address] [facility] [address] [place] [address] Blu Kothari MD Primary hypertension 03/18/2025 External Result Encounter NOMS External Department Unsolicited Blu Kothari MD 03/13/2025 Refill [facility] [address] [facility] [address] [place] [address] Alexia Rose PA Gastroesophageal reflux disease without esophagitis 03/07/2025 9:15 AM EDT Office Visit [facility] [address] [facility] [address] [place] [address] Blu Kothari MD Lumbosacral spondylosis with radiculopathy (Primary Dx); Right flank pain, chronic; Other idiopathic scoliosis, thoracolumbar region; Lumbar disc narrowing 03/07/2025 Bamboo flowsheet [facility] [address] [facility] [address] [place] [address] Blu Kothari MD 03/07/2025 Travel 02/24/2025 2:45 PM EDT Ancillary Procedure [facility] [address] [address] Right flank pain, chronic 02/24/2025 Travel 02/18/2025 9:00 AM EDT Office Visit [facility] [address] [facility] [address] [place] [address] Blu Kothari MD Lumbosacral spondylosis with radiculopathy (Primary Dx); Right flank pain, chronic 02/18/2025 Bamboo flowsheet [facility] [address] [facility] [address] [place] [address] Blu Kothari MD 02/18/2025 Travel from Last [...] PM EDT Impressions 03/18/2025 3:51 PM EDT Ooyc-xc-dxbttzed multilevel degenerative changes without high-grade canal or neural foraminal narrowing. Moderate left neural foraminal narrowing at L5-S1 Impression dictated by: Ever Odonnell M.D. 03/18/2025 3:49 PM Dictation Location: [facility] Transcribed By: [facility] 03/18/25 1549 Dictated By: Ever Odonnell MD 03/18/25 1509 Signed By: <Electronically signed by Ever Odonnell MD in OV> 03/18/25 1549 Narrative 03/18/2025 3:51 PM EDT [facility] [address] MRI Report Signed Patient: Patricia Gonzalez MR#: [id number] : 1955 Acct:[id number] Age/Sex: 69 / F ADM Date: 03/18/25 Loc: Room: Type: [facility] Attending Dr: Blu Kothari II, MD [...] narrowing identified. L2-3: Broad-based disc bulge with jipa-cr-tfoebikr facet arthropathy. Minimal foraminal narrowing. Canal is [...] spine wo con Procedure Note Radiology, Radiologist, - 03/18/2025 [facility] [place] [address] [place] [address] MRI Report Signed Patient: Naren Gonzalez#: [id number] : 5Acct:[id number] Age/Sex: 69 / FADM Date: 03/18/25 Loc: Room:Type: [facility] Attending Dr: Blu Kothari II, MD [...] narrowing identified. L2-3: Broad-based disc bulge with idzl-cc-gosqqdcu facet arthropathy.Minimal foraminal narrowing. Canal is patent. L3-L4: Circumferential disc bulge with moderate facet arthropathy. Mildneural foraminal narrowing. Minimal central canal stenosis. L4-5: Disc desiccation. Moderate disc facet arthropathy. No significantcentral canal or neural from narrowing identified. L5-S1: Circumferential disc bulge with moderate facet arthropathy.Moderate right moderate left neural foraminal narrowing. MR/MR lumbar spine wo con IMPRESSION: Lyjk-mo-hjrdczmn multilevel degenerative changes without high-grade canalor neural foraminal narrowing. Moderate left neural foraminal narrowing at L5-S1 Impression dictated by: Ever Odonnell M.D. 03/18/2025 3:49 PM Dictation Location: [place] [address] Transcribed By: [facility] 03/18/25 1549 Dictated By: Ever [...] Performing Organization Information Site ID: QPT Name: [employer] [facility] Address: [address] [place] [address], [address] [place] [id number] Director: Truman Liao MD Blu Kothari MD [...] STL-IMP Negative Negative 07/25/2023 6:26 PM EDT [facility] (CLIA #:[id number]) Comment: NEGATIVE TEST RESULT. A negative Cologuard [...] screened with both Cologuard and colonoscopy. (Jo-Ann Palmer. et al, N Engl J Med 2014;370(14):4108-3447) The normal value (reference range) for this assay is negative. COLOGUARD RE-SCREENING RECOMMENDATION: Periodic colorectal cancer screening is an important part of preventive healthcare for asymptomatic individuals at average risk for colorectal cancer. Following a negative Cologuard result, the [place] Cancer Society and U.S. Multi-Society Task Force screening guidelines recommend a Cologuard re-screening interval of 3 years. References: [place] Cancer Society Guideline for Colorectal Cancer Screening: https://www.cancer.org/cancer/ygems-zocodc-rzwvyi/puqgptaoa-disvogvlr-evjnzxo/ac s-rec ommendations.html.; Ez BUSTAMANTE, Marla PORTILLOJessica, Colorectal Cancer Screening: Recommendations for Physicians and Patients from the U.S. Multi-Society Task Force on Colorectal Cancer Screening , Am J Gastroenterology 2017; 112:8005-3823. TEST DESCRIPTION: Composite algorithmic analysis of stool [...] screened with both Cologuard and colonoscopy. (Jo-Ann Puentes et al, N Engl J Med 2014;370(14):1672-4101.) Cologuard may produce a false negative or false positive result (no colorectal cancer or precancerous polyp present at colonoscopy follow up). A negative Cologuard test result does not guarantee the absence of CRC or advanced adenoma (pre-cancer). The current Cologuard screening interval is every 3 years. ([place] Cancer Society and U.S. Multi-Society Task Force). Cologuard performance data in a 10,000 patient pivotal study using colonoscopy as the reference method can be accessed at the following location: www.Symwave.Brainsway/results. Additional description of the Cologuard test process, warnings and precautions can be found at www.Carbon Adsrd.com. Stool specimen (specimen) 07/17/2023 7:30 PM EDT 07/19/2023 4:57 PM EDT Blu Kothari MD [facility] DANA SHAFER Final Result .[facility] (CLIA #:[id number]) [address] [place] [address], [facility] (CLIA #:[id number]) [address] [place] [address] from Last 3 Months or Most Recently Relevant to Health Maintenance Insurance [employer] Care Teams Director Of Campus Recreation Relationship Specialty Start Date End Date Blu Kothari MD [address] [facility] [address] [place] [address] PCP - General Internal Medicine 04/01/23
--- OUTSIDE RECORDS SUMMARY | 2025-05-19 07:48 | XMS_ITS | Encounter Summary ---
Author Organization [facility] Address [address] [facility] [place] [address] Care Team Providers Care City Magistrate Name Role Phone Blu Kothari MD Primary Care Provider [phone] Blu Kothari MD Unavailable [phone] Encounter Details Date Type Department Care Team (Late st Contact Info) Description 12/03/2023 Abstract [facility] [address] [facility] 110 [place] [address] Blu Kothari MD [address] [facility] 110 [place] [address] Social History Tobacco Use Types Packs/Day Years [...] on filedocumented in this encounter Care Teams City Magistrate Relationship Specialty Start Date End Date Blu Kothari MD [address] [facility] 110 [place] [address] PCP - General Internal Medicine 04/01/23 Blu Kothari MD [address] [facility] 110 [place] [address] PCP - ACO Reach 12/31/24 04/26/25 documented as of this encounter
--- OUTSIDE RECORDS SUMMARY | 2025-05-19 07:48 | XMS_ITS | Encounter Summary ---
Author Organization [facility] Address [address] [facility] [place] [address] Care Team Providers Care International Flight Attendant Name Role Phone Blu Kothari MD Primary Care Provider [phone] Blu Kothari MD Unavailable [phone] Encounter Details Date Type Department Care Team (Late st Contact Info) Description 02/23/2024 Abstract [facility] [address] [facility] 110 [place] [address] Blu Kothari MD [address] [facility] 110 [place] [address] Social History Tobacco Use Types Packs/Day Years [...] on filedocumented in this encounter Care Teams International Flight Attendant Relationship Specialty Start Date End Date Blu Kothari MD [address] [facility] 110 [place] [address] PCP - General Internal Medicine 04/01/23 Blu Kothari MD [address] [facility] 110 [place] [address] PCP - ACO Reach 12/31/24 04/26/25 documented as of this encounter
--- OUTSIDE RECORDS SUMMARY | 2025-05-19 07:48 | XMS_ITS | Encounter Summary ---
Author Organization [facility] Address [address] [facility] [place] [address] Care Team Providers Care Auto Damage Estimator Name Role Phone Blu Kothari MD Primary Care Provider [phone] Blu Kothari MD Unavailable [phone] Encounter Details Date Type Department Care Team (Late st Contact Info) Description 08/23/2024 Abstract [facility] [address] [facility] 110 [place] [address] Blu Kothari MD [address] [facility] 110 [place] [address] Social History Tobacco Use Types Packs/Day Years [...] documented as of this encounter Care Teams Auto Damage Estimator Relationship Specialty Start Date End Date Blu Kothari MD [address] [facility] 110 [place] [address] PCP - General Internal Medicine 04/01/23 Blu Kothari MD 112 [facility] 110 [place] [id number] PCP - ACO Reach 12/31/24 04/26/25 documented as of this encounter
--- OUTSIDE RECORDS SUMMARY | 2025-05-19 07:49 | XMS_ITS | Encounter Summary ---
Author Organization [facility] Address [address] [facility] [place] [address] Care Team Providers Care Case Supervisor Name Role Phone Blu Kothari MD Primary Care Provider [phone] Blu Kothari MD Unavailable [phone] Encounter Details Date Type Department Care Team [...] EST Narrative 12/26/2023 11:04 AM EST The [address] [address] XRay Report Signed Patient: MIGUEL GONZALEZ MR#: [id number] : 1955 Acct:[id number] Age/Sex: 68 / F ADM Date: 12/26/23 Loc: RAD Attending Dr: Tierney Giordano BROACH OPERATOR Ordering Physician: Tierney Giordano NP Date of Service: 12/26/23 Procedure(s): XR thoracic spine 3V Accession Number(s): [id number] cc: BLU KOTHARI ; Tierney Giordano NP The [place] [address] Patient Name: MIGUEL GONZALEZ MRN: [id number] date: 1955 Sex: F Assigned Patient Location: [facility] Current Patient Location: RAD Accession/Order Number: [id number] Exam Date: 12/26/2023 10:18 Report Date: 12/26/2023 [...] Signed By: 12/26/23 1104 DD/ 1101 TD/TT: Restaurant Line Server: Procedure Note Radiology, Radiologist, MD - 12/29/2023 [place] [address] XRay Report Signed Patient: MIGUEL GONZALEZ LMR#: [id number] : 5Acct:[id number] Age/Sex: 68 / FADM Date: 12/26/23 Loc: RAD Attending Dr: Tierney Giordano NP Ordering Physician: Tierney Giordano NP Date of Service: 12/26/23 Procedure(s): XR thoracic spine 3V Accession Number(s): [id number] cc: BLU KOTHARI ; Tierney Giordano NP The [address] [address] Patient Name: MIGUEL GONZALEZ MRN: [id number] date: 1955 Sex: F Assigned Patient Location: RAD Current Patient Location: RAD Accession/Order Number: [id number] Exam Date: 12/26/2023 10:18 Report Date: 12/26/2023 [...] M.D. Signed By:12/26/23 1104 DD/ 1101 TD/TT: Restaurant Line Server: Generic External Data Provider [facility] Final Result documented in this encounter Visit Diagnoses Not on filedocumented in this encounter Care Teams Case Supervisor Relationship Specialty Start Date End Date Blu Kothari MD [address] [facility] 110 [place] [address] PCP - General Internal Medicine 04/01/23 Blu Kothari MD [address] [facility] 110 [place] [address] PCP - ACO Reach 12/31/24 04/26/25 documented as of this encounter
--- OUTSIDE RECORDS SUMMARY | 2025-05-19 07:49 | XMS_ITS | Encounter Summary ---
Author Organization [facility] Address [address] [facility] [place] [address] Care Team Providers Care Assistant Warehouse Manager Name Role Phone Blu Kothari MD Primary Care Provider [phone] Blu Kothari MD Unavailable [phone] Encounter Details Date Type Department Care Team (Late st Contact Info) Description 11/04/2023 Abstract [facility] [address] [facility] 110 [place] [address] Blu Kothari MD [address] [facility] 110 [place] [address] Social History Tobacco Use Types Packs/Day Years [...] on filedocumented in this encounter Care Teams Assistant Warehouse Manager Relationship Specialty Start Date End Date Blu Kothari MD [address] [facility] 110 [place] [address] PCP - General Internal Medicine 04/01/23 Blu Kothari MD [address] [facility] 110 [place] [address] PCP - ACO Reach 12/31/24 04/26/25 documented as of this encounter
--- OUTSIDE RECORDS SUMMARY | 2025-05-19 07:49 | XMS_ITS | Encounter Summary ---
Author Organization [facility] Address [address] [facility] [place] [address] Care Team Providers Care Gas Line Repairer Name Role Phone Blu Kothari MD Primary Care Provider [phone] Blu Kothari MD Unavailable [phone] Encounter Details Date Type Department Care Team (Late st Contact Info) Description 10/09/2023 Abstract [facility] [address] [facility] 110 [place] [address] Blu Kothari MD [address] [facility] 110 [place] [address] Social History Tobacco Use Types Packs/Day Years [...] on filedocumented in this encounter Care Teams Gas Line Repairer Relationship Specialty Start Date End Date Blu Kothari MD [address] [facility] 110 [place] [address] PCP - General Internal Medicine 04/01/23 Blu Kothari MD [address] [facility] 110 [place] [address] PCP - ACO Reach 12/31/24 04/26/25 documented as of this encounter
--- OUTSIDE RECORDS SUMMARY | 2025-05-19 07:49 | XMS_ITS | Clinical Summary ---
Author Organization [facility] Address [id number] [address] [place] [address] Care Team Providers Care Temperature Control Inspector Name Role Phone Blu Kothari MD Primary Care Provider [phone] Allergies No known active allergies Medications rosuvastatin [...] Take 400 Units by mouth daily. Active eonebyqo-bryy-R A-calcium &mins (THERAGRAN-M) 9 mg iron-400 mcg tablet Take 1 tablet by mouth daily. Active omega 6-zpf-txw-fish oil (FISH OIL) 300-1,000 mg capsule Take [...] on file Insurance [employer] Care Teams Temperature Control Inspector Relationship Specialty Start Date End Date Blu Kothari MD [address] [facility] 110 [place] [address] PCP - General Internal Medicine 06/09/20
--- OUTSIDE RECORDS SUMMARY | 2025-05-19 07:49 | XMS_ITS | Encounter Summary ---
Author Organization [facility] Address [address] [place] [address] Care Team Providers Care Reconstructive Surgeon Name Role Phone Blu Kothari MD Primary Care Provider [phone] Blu Kothari MD Unavailable [phone] Encounter Details Date Type Department Care [...] EDT Narrative 08/09/2023 6:58 AM EDT The [address] [address] XRay Report Signed Patient: Miguel Gonzalez MR#: [id number] : 1955 Acct:[id number] Age/Sex: 68 / F ADM Date: 08/08/23 Loc: RAD Attending Dr: VianneyStaff Physician Aguilar Ordering Physician: Zeinab Mixon M.D. Date of Service: 08/08/23 Procedure(s): XR lumbar spine 6V w bending Accession Number(s): [id number] cc: BLU KOTHARI ; PhysicianZeinab M.D. The [place] [id number] Patient Name: MIGUEL GONZALEZ MRN: [id number] date: 1955 Sex: F Assigned Patient Location: [facility] Current Patient Location: Accession/Order Number: [id number] Exam Date: 08/08/2023 09:03 Report Date: 08/09/2023 [...] Signed By: 08/09/23 0701 DD/ 0658 TD/TT: Guide: Procedure Note Radiology, Radiologist, MD - 08/15/2023 [place] [address] XRay Report Signed Patient: Miguel Gonzalez LMR#: [id number] : 5Acct:[id number] Age/Sex: 68 / FADM Date: 08/08/23 Loc: [facility] Attending Dr: VianneyStaff Physician Aguilar Ordering Physician: Zeinab Mixon M.D. Date of Service: 08/08/23 Procedure(s): XR lumbar spine 6V w bending Accession Number(s): [id number] cc: BLU KOTHARI ; Physician,Non-Staff Lauren The [place] [id number] Patient Name: MIGUEL GONZALEZ MRN: [id number] date: 1955 Sex: F Assigned Patient Location: [facility] Current Patient Location: Accession/Order Number: [id number] Exam Date: 08/08/2023 09:03 Report Date: 08/09/2023 [...] M.D. Signed By:08/09/23 0701 DD/ 0658 TD/TT: Guide: Generic External Data Provider [facility] Final Result documented in this encounter Visit Diagnoses Not on filedocumented in this encounter Care Teams Reconstructive Surgeon Relationship Specialty Start Date End Date Blu Kothari MD [address] [facility] 110 [place] [address] PCP - General Internal Medicine 04/01/23 Blu Kothari MD [address] [facility] 110 [place] [address] PCP - ACO Reach 12/31/24 04/26/25 documented as of this encounter
--- OUTSIDE RECORDS SUMMARY | 2025-05-19 07:49 | XMS_ITS | Encounter Summary ---
Author Organization [facility] Address [address] [facility] [place] [address] Care Team Providers Care Tar And Ammonia Pump Operator Name Role Phone Blu Kothari MD Primary Care Provider [phone] Blu Kothari MD Unavailable [phone] Encounter Details Date Type Department Care Team (Late st Contact Info) Description 12/11/2023 Abstract [facility] [address] [facility] 110 [place] [address] Blu Kothari MD [address] [facility] 110 [place] [address] Social History Tobacco Use Types Packs/Day Years [...] on filedocumented in this encounter Care Teams Tar And Ammonia Pump Operator Relationship Specialty Start Date End Date Blu Kothari MD [address] [facility] 110 [place] [address] PCP - General Internal Medicine 04/01/23 Blu Kothari MD [address] [facility] 110 [place] [address] PCP - ACO Reach 12/31/24 04/26/25 documented as of this encounter
--- OUTSIDE RECORDS SUMMARY | 2025-05-19 07:49 | XMS_ITS | Encounter Summary ---
Author Organization [facility] Address [address] [facility] [place] [address] Care Team Providers Care Overhead Door Technician Name Role Phone Blu Kothari MD Primary Care Provider [phone] Blu Kothari MD Unavailable [phone] Encounter Details Date Type Department Care Team (Late st Contact Info) Description 09/01/2023 Abstract [facility] [address] [facility] 110 [place] [address] Blu Kothari MD [address] [facility] 110 [place] [address] Social History Tobacco Use Types Packs/Day Years [...] on filedocumented in this encounter Care Teams Overhead Door Technician Relationship Specialty Start Date End Date Blu Kothari MD [address] [facility] 110 [place] [address] PCP - General Internal Medicine 04/01/23 Blu Kothari MD [address] [facility] 110 [place] [address] PCP - ACO Reach 12/31/24 04/26/25 documented as of this encounter
--- OUTSIDE RECORDS SUMMARY | 2025-05-19 07:49 | XMS_ITS | Encounter Summary ---
Author Organization [facility] Address [address] [facility] [place] [address] Care Team Providers Care Law Researcher Name Role Phone Blu Kothari MD Primary Care Provider [phone] Blu Kothari MD Unavailable [phone] Encounter Details Date Type Department Care Team (Late st Contact Info) Description 08/04/2023 Abstract [facility] [address] [facility] 110 [place] [address] Blu Kothari MD [address] [facility] 110 [place] [address] Social History Tobacco Use Types Packs/Day Years [...] on filedocumented in this encounter Care Teams Law Researcher Relationship Specialty Start Date End Date Blu Kothari MD [address] [facility] 110 [place] [address] PCP - General Internal Medicine 04/01/23 Blu Kothari MD [address] [facility] 110 [place] [address] PCP - ACO Reach 12/31/24 04/26/25 documented as of this encounter
--- OUTSIDE RECORDS SUMMARY | 2025-05-19 07:49 | XMS_ITS | Encounter Summary ---
Author Organization [facility] Address [address] [facility] [place] [address] Care Team Providers Care Career Development Consultant Name Role Phone Blu Kothari MD Primary Care Provider [phone] Blu Kothari MD Unavailable [phone] Encounter Details Date Type Department Care Team (Late st Contact Info) Description 09/29/2023 Abstract [facility] [address] [facility] 110 [place] [address] Blu Kothari MD [address] [facility] 110 [place] [address] Social History Tobacco Use Types Packs/Day Years [...] on filedocumented in this encounter Care Teams Career Development Consultant Relationship Specialty Start Date End Date Blu Kothari MD [address] [facility] 110 [place] [address] PCP - General Internal Medicine 04/01/23 Blu Kothari MD [address] [facility] 110 [place] [address] PCP - ACO Reach 12/31/24 04/26/25 documented as of this encounter
--- OUTSIDE RECORDS SUMMARY | 2025-05-19 07:49 | XMS_ITS | Encounter Summary ---
Author Organization [facility] Address [address] [facility] [place] [address] Care Team Providers Care Director Medical Surgical Name Role Phone Blu Kothari MD Primary Care Provider [phone] Blu Kothari MD Unavailable [phone] Encounter Details Date Type Department Care Team (Late st Contact Info) Description 08/04/2023 Abstract [facility] [address] [facility] 110 [place] [id number] Blu Kothari MD [address] [facility] 110 [place] [address] Social History Tobacco Use Types Packs/Day Years [...] on filedocumented in this encounter Care Teams Director Medical Surgical Relationship Specialty Start Date End Date Blu Kothari MD [address] [facility] 110 [place] [address] PCP - General Internal Medicine 04/01/23 Blu Kothari MD [address] [facility] 110 [place] [address] PCP - ACO Reach 12/31/24 04/26/25 documented as of this encounter
--- OUTSIDE RECORDS SUMMARY | 2025-05-19 07:49 | XMS_ITS | Encounter Summary ---
Author Organization [facility] Address [address] [facility] [place] [address] Care Team Providers Care Biodiesel Production Technician Name Role Phone Blu Kothari MD Primary Care Provider [phone] Blu Kothari MD Unavailable Encounter Details Date Type Department Care Team (Late st Contact Info) Description 12/29/2023 Orders Only [facility] [address] [facility] 110 [place] [address] A, Unknown Practice [address] [place], [place] [id number] Social History Tobacco Use Types Packs/Day Years [...] on filedocumented in this encounter Care Teams Biodiesel Production Technician Relationship Specialty Start Date End Date Blu Kothari MD [address] [facility] 110 [place] [address] PCP - General Internal Medicine 04/01/23 Blu Kothari MD [address] [facility] 110 [place] [address] PCP - ACO Reach 12/31/24 04/26/25 documented as of this encounter
--- OUTSIDE RECORDS SUMMARY | 2025-05-19 07:49 | XMS_ITS | Encounter Summary ---
Author Organization [facility] Address [address] [facility] [place] [address] Care Team Providers Care Bread Oven Operator Name Role Phone Blu Kothari MD Primary Care Provider [phone] Blu Kothari MD Unavailable [phone] Encounter Details Date Type Department Care Team (Late st Contact Info) Description 09/11/2023 Abstract [facility] [address] [facility] 110 [place] [phone] Blu Kothari MD [address] [facility] 110 [place] [address] Social History Tobacco Use Types Packs/Day Years [...] on filedocumented in this encounter Care Teams Bread Oven Operator Relationship Specialty Start Date End Date Blu Kothari MD [address] [facility] 110 [place] [address] PCP - General Internal Medicine 04/01/23 Blu Kothari MD [address] [facility] 110 [place] [address] PCP - ACO Reach 12/31/24 04/26/25 documented as of this encounter
--- OUTSIDE RECORDS SUMMARY | 2025-05-19 07:49 | XMS_ITS | Encounter Summary ---
Author Organization [facility] Address [address] [facility] [place] [address] Care Team Providers Care Registered Nurse Maternal Child Name Role Phone Blu Kothari MD Primary Care Provider [phone] Blu Kothari MD Unavailable [phone] Encounter Details Date Type Department Care Team (Late st Contact Info) Description 07/04/2023 Abstract [facility] [address] [facility] 110 [place] [address] Blu Kothari MD [address] [place] [facility] 110 [place] [address] Social History Tobacco Use Types Packs/Day Years [...] on filedocumented in this encounter Care Teams Registered Nurse Maternal Child Relationship Specialty Start Date End Date Blu Kothari MD [address] [place] [facility] 110 [place] [address] PCP - General Internal Medicine 04/01/23 Blu Kothari MD 112 [facility] 110 [place] [address] PCP - ACO Reach 12/31/24 04/26/25 documented as of this encounter
--- OUTSIDE RECORDS SUMMARY | 2025-05-19 07:49 | XMS_ITS | Encounter Summary ---
Author Organization [facility] Address [address] [facility] [place] [address] Care Team Providers Care Laundry Presser Name Role Phone Blu Kothari MD Primary Care Provider [phone] Blu Kothari MD Unavailable [phone] Encounter Details Date Type Department Care Team (Late st Contact Info) Description 07/15/2023 Abstract [facility] [address] [facility] 110 [place] [address] Blu Kothari MD [address] [facility] 110 [place] [address] Social History Tobacco Use Types Packs/Day Years [...] on filedocumented in this encounter Care Teams Laundry Presser Relationship Specialty Start Date End Date Blu Kothari MD [address] [facility] 110 [place] [address] PCP - General Internal Medicine 04/01/23 Blu Kothari MD [address] [facility] 110 [place] [address] PCP - ACO Reach 12/31/24 04/26/25 documented as of this encounter
--- OUTSIDE RECORDS SUMMARY | 2025-05-19 07:49 | XMS_ITS | Encounter Summary ---
Author Organization [facility] Address [address] [place] [address] Care Team Providers Care Tubular Products Fabricator Name Role Phone Blu Kothari MD Primary Care Provider [phone] Blu Kothari MD Unavailable [phone] Encounter Details Date Type Department Care Team (Late st Contact Info) Description 08/18/2023 Orders Only [facility] [address] [facility] [address] [place] [address] A, Unknown Practice [address] [place], [place] [id number] Social History Tobacco Use Types Packs/Day Years [...] on filedocumented in this encounter Care Teams Tubular Products Fabricator Relationship Specialty Start Date End Date Blu Kothari MD [address] [facility] 110 [place] [address] PCP - General Internal Medicine 04/01/23 Blu Kothari MD [address] [facility] 110 [place] [address] PCP - ACO Reach 12/31/24 04/26/25 documented as of this encounter
--- OUTSIDE RECORDS SUMMARY | 2025-05-19 07:49 | XMS_ITS | Encounter Summary ---
Author Organization [facility] Address [address] [facility] [place] [address] Care Team Providers Care Cafe Cook Name Role Phone Blu Kothari MD Primary Care Provider [phone] Blu Kothari MD Unavailable [phone] Encounter Details Date Type Department Care Team (Late st Contact Info) Description 08/15/2023 Clinisync Result Encounter [facility] External Department Unsolicited Blu Kothari MD [address] [facility] 110 [place] [address] Social History Tobacco Use Types Packs/Day Years [...] EDT Narrative 08/15/2023 9:47 AM EDT The [address] [address] XRay Report Signed Patient: Miguel Gonzalez MR#: [id number] : 1955 Acct:[id number] Age/Sex: 68 / F ADM Date: 08/15/23 Loc: [facility] Attending Dr: BLU KOTHARI Ordering Physician: BLU KOTHARI Date of Service: 08/15/23 Procedure(s): XR DEXA axial skeleton Accession Number(s): [id number] cc: BLU KOTHARI The [place] [address] Patient Name: MIGUEL GONZALEZ MRN: [id number] date: 1955 Sex: F Assigned Patient Location: [facility] Current Patient Location: [facility] Accession/Order Number: [id number] Exam Date: 08/15/2023 08:32 Report Date: 08/15/2023 [...] M.D. Signed By: 08/15/2349 DD/ 6 TD/TT: Automotive Mechanical Engineer: Procedure Note Radiology, Radiologist, MD - 08/15/2023 [place] [address] XRay Report Signed Patient: Miguel Gonzalez LMR#: [id number] : 5Acct:[id number] Age/Sex: 68 / FADM Date: 08/15/23 Loc: [facility] Attending Dr: BLU KOTHARI Ordering Physician: BLU KOTHARI Date of Service: 08/15/23 Procedure(s): XR DEXA axial skeleton Accession Number(s): [id number] cc: BLU KOTHARI [place] [id number] Patient Name: MIGUEL GONZALEZ MRN: [facility]:[id number] date: 1955 Sex: F Assigned Patient Location: RAD Current Patient Location: RAD Accession/Order Number: [id number] Exam Date: 08/15/2023 08:32 Report Date: 08/15/2023 [...] Oconnell M.D. Signed By:08/15/23 0949 DD/ TD/TT: Automotive Mechanical Engineer: Blu Kothari MD [facility] Final Result documented in this encounter Visit Diagnoses Not on filedocumented in this encounter Care Teams Cafe Cook Relationship Specialty Start Date End Date Blu Kothari MD [address] [facility] 110 [place] [address] PCP - General Internal Medicine 04/01/23 Blu Kothari MD [address] [facility] 110 [place] [address] PCP - ACO Reach 12/31/24 04/26/25 documented as of this encounter
--- OUTSIDE RECORDS SUMMARY | 2025-05-19 07:49 | XMS_ITS | Encounter Summary ---
Author Organization [facility] Address [address] [facility] [place] [address] Care Team Providers Care Gravity Manager Name Role Phone Blu Kothari MD Primary Care Provider [phone] Blu Kothari MD Unavailable [phone] Encounter Details Date Type Department Care Team (Late st Contact Info) Description 11/04/2023 Abstract [facility] [address] [facility] 110 [place] [phone] Blu Kothari MD [address] [facility] 110 [place] [address] Social History Tobacco Use Types Packs/Day Years [...] on filedocumented in this encounter Care Teams Gravity Manager Relationship Specialty Start Date End Date Blu Kothari MD [address] [facility] 110 [place] [address] PCP - General Internal Medicine 04/01/23 Blu Kothari MD [address] [facility] 110 [place] [address] PCP - ACO Reach 12/31/24 04/26/25 documented as of this encounter
--- OUTSIDE RECORDS SUMMARY | 2025-05-19 07:49 | XMS_ITS | Encounter Summary ---
Author Organization [facility] Address [address] [facility] [place] [address] Care Team Providers Care Lipstick Molder Name Role Phone Blu Kothari MD Primary Care Provider [phone] Blu Kothari MD Unavailable [phone] Encounter Details Date Type Department Care Team (Late st Contact Info) Description 11/10/2023 Abstract [facility] [address] [facility] 110 [place] [phone] Blu Kothari MD [address] [facility] 110 [place] [address] Social History Tobacco Use Types Packs/Day Years [...] on filedocumented in this encounter Care Teams Lipstick Molder Relationship Specialty Start Date End Date Blu Kothari MD [address] [facility] 110 [place] [address] PCP - General Internal Medicine 04/01/23 Blu Kothari MD [address] [facility] 110 [place] [address] PCP - ACO Reach 12/31/24 04/26/25 documented as of this encounter
--- OUTSIDE RECORDS SUMMARY | 2025-05-19 07:49 | XMS_ITS | Encounter Summary ---
Author Organization [facility] Address [address] [facility] [place] [address] Care Team Providers Care Manager It Training Name Role Phone Blu Kothari MD Primary Care Provider [phone] Blu Kothari MD Unavailable [phone] Encounter Details Date Type Department Care Team (Late st Contact Info) Description 11/05/2023 Orders Only [facility] [address] [facility] 110 [place] [address] A, Unknown Practice [address] [place], [place] [phone] Social History Tobacco Use Types Packs/Day Years [...] on filedocumented in this encounter Care Teams Manager It Training Relationship Specialty Start Date End Date Blu Kothari MD [address] [facility] 110 [place] [address] PCP - General Internal Medicine 04/01/23 Blu Kothari MD [address] [facility] 110 [place] [address] PCP - ACO Reach 12/31/24 04/26/25 documented as of this encounter
--- OUTSIDE RECORDS SUMMARY | 2025-05-19 07:54 | XMS_ITS | CCD ---
Author Organization [facility] Care Team Providers Care Tetryl Boiling Tub Operator Name Role Phone BLU KOTHARI Attending BLU Champagne Consulting BLU Champagne Primary Care Unavailable BLU KOTHARI Admitting Unavailable Jeanne RIVERA, Bouchra Giordano Attending Unavailable Jeanne RIVERA, Bouchra Giordano Attending Unavailable Jeanne RIVERA, Bouchra Giordano Attending Unavailable Jeanne RIVERA, Bouchra Giordano Attending Blu Champagne MD Primary Care Provider Blu Kothari MD Unavailable Blu Kothari II Primary Care Provider Blu Kothari II Attending Provider [phone] APRIL MERCEDES Attending Unavailable BLU KOTHARI Attending [...] MERCEDES Attending Unavailable Blu Kothari Attending Blu Champgane Primary Care Unavailable Blu Kothari Admitting Unavailable [...] with food. 100 tablet 3 12/29/2023 Active [place]-3 Fatty Acids (Fish Oi l) 1000 MG capsule delayed-release (20 sources) [place]-3 Fatty Ac ids (Fish Oil) 1000 MG capsule delayed-release Take by mouth Daily Active [place]-3 Fatty Ac ids (Fish Oil) 1000 MG capsule delayed-release Take by mouth Daily. Active [place]-3 Fatty Ac ids (Fish Oil) 1000 MG [...] Reference Range Facility MR lumbar spine wo [facility] MR lumbar spine wo [facility] [place] [address] MRI Report Signed Patient: Miguel Gonzalez MR#: [id number] : 1955 Acct:[id number] Age/Sex: 69 / F ADM Date: 03/18/25 Loc: Room: Type: [facility] Attending Dr: Blu Kothari II, MD Copies [...] narrowing identified. L2-3: Broad-based disc bulge with kocn-vo-vaflttax facet arthropathy. Minimal foraminal narrowing. Canal is patent. L3-L4: Circumferential disc bulge with moderate facet arthropathy. Mild neural foraminal narrowing. Minimal central canal stenosis. L4-5: Disc desiccation. Moderate disc facet arthropathy. No significant central canal or neural from narrowing identified. L5-S1: Circumferential disc bulge with moderate facet arthropathy. Moderate right moderate left neural foraminal narrowing. MR/MR lumbar spine wo con IMPRESSION: Bnaj-xc-iiahrcjt multilevel degenerative changes without high-grade canal or neural foraminal narrowing. Moderate left neural foraminal narrowing at L5-S1 Impression dictated by: Ever Odonnell M.D. 03/18/2025 3:49 PM Dictation Location: [place] [address] Transcribed By: [facility] 03/18/25 1549 Dictated By: Ever Odonnell MD 03/18/25 1509 Signed By: 03/18/25 1549 Normal [facility] Magnetic resonance imaging r eportOrdered By: Ever Odonnell on 03-18-2025 Study report [place] [address] MRI Report Signed Patient: Miguel Gonzalez MR#: [id number] : 1955 Acct:[id number] Age/Sex: 69 / F ADM Date: 5 Loc: MR Room: Type: [facility] Attending Dr: Blu Kothari II, MD Copies [...] narrowing identified. L2-3: Broad-based disc bulge with kpou-br-rdxfivrl facet arthropathy. Minimal foraminal narrowing. Canal is patent. L3-L4: Circumferential disc bulge with moderate facet arthropathy. Mild neural foraminal narrowing. Minimal central canal stenosis. L4-5: Disc desiccation. Moderate disc facet arthropathy. No significant central canal or neural from narrowing identified. L5-S1: Circumferential disc bulge with moderate facet arthropathy. Moderate right moderate left neural foraminal narrowing. MR/MR lumbar spine wo con IMPRESSION: Jlav-ch-rowwribh multilevel degenerative changes without high-grade canal or neural foraminal narrowing. Moderate left neural foraminal narrowing at L5-S1 Impression dictated by: Ever Odonnell M.D. 03/18/2025 3:49 PM Dictation Location: [place] [address] Transcribed By: [facility] 03/18/25 1549 Dictated By: Ever Odonnell MD 03/18/25 1509 Signed By: 03/18/25 1549 [facility] Work Phone: CT ABDOMEN PELVIS W [...] 02-23-2025 Creatinine [Mass/Vol] 0.55 mg/dL Normal 0.50-1.05 [facility] Comment on above: Performed By: #### 3 75 #### [facility] [address], [address] [place] [phone] Survey Superintendent: Truman Liao MD GFR/1.73 sq M.predicted among non-blacks MDRD (S/P/Bld) [Vol rate/Area] 99 mL/min/{1.73_m2} Normal > OR = 60 [facility] Comment on above: Performed By: #### 3 75 #### [facility] [address], [address] [place] [phone] Survey Superintendent: Truman Liao MD Urinalysis macro (dipstick) panel (U)on 02-18-2025 Bilirubin, UA Negative Negative - 4(70) +++ mg/dL [facility] Blood, UA Negative Negative - 50 Tan/mcL [facility] Glucose, UA Negative Negative - 1999(110) ++++ mg/dL [facility] Ketones, UA Negative Negative - 160(16) ++++ mg/dL [facility] Leukocytes, UA Negative Negative - 500+++ [place]/mcL [facility] Nitrite, UA Negative Negative - Positive [facility] pH, UA 6.5 5 - 9 [facility] Protein, UA Negative Negative - 1999(20) ++++ mg/dL [facility] Spec Grav, UA 1.005 1 - 1.03 [facility] Urobilinogen, UA 0.2 0.2 - 12 mg/dL [facility] MR SHOULDER RIGHT WO [...] Comment: MRI R T shoulder w/o at [facility]. Orbits if needed. Eval for [...] fracture and/or dislocation. Impression: Unremarkable right shoulder. [facility] XR Shoulder - right 2 ViewsO rdered By: Jr. Waite on 08-02-2024 [facility] Leti [employer]scar [facility] Work Phone: XR Shoulder - right 2 Viewso n 07-27-2024 Radiology Study observation (narrative) [facility] Coding Summary.on 04-15-2021 Coding Summary. CD:[id number] Gh 0bWw+PGhlYWQ+AW0VXEHkN 72kxJJfiK0XD6cBXH2AJQG IRYIOTF9YQT4vnUP5ZXmdA 2VybiAv KmziqAWpTO90OXm3AST1xT uxRJzdiD5evMAaG7v7UtOq SG50eS35EQqpTZEcTyS1Uk ZpbjsgbWFy K4nlXfYbvKJoQes+PHRhYm xlIHdpZHRoPScxMDAlJyBz dEroTS7gHa7lTUHjSZNzqO xhcHNlOiBj c5rtFNKzZLugCZ4vlPibA2 IqyET3RENon1c1Dv96nZU+ ISZnAZM0zKccVGkye938Wn Bcg0bjETB3 tUDbVJdfEYB2V01sc5K7LK XuUOVzZJQ1iLL0nZ2nqKoi rkfdW7QfgUYgReY7ACN0cS IwrG5ytHea eahhnS3pBno+S07OMR0CCK PYEU4FQew5V5LcMykuaZQ+ MD71OOBqSE26qZPtkSHoq8 bixBn7UuRb GGMhNYD3tZlmQUxbs2NnEH OhG03itCVbq8N6RKAvxRaw sJMeZdKbbUX3yH3xRNwwbx wbz7atynqv Epyob8aqpu78qP33Y46zIO gpHIMpRFZ9OPBjVRJusSct nf8wgU6rGj9+JWnwi8bho9 ymcDm8TuPn IHHnfbKkqQcoEGY6m6OoQm 66D5GuhTxdv4HbQez0df83 oEDoj1Q9yWZ5IVizZFZbdJ 4tPUysWwY7 DIEpOfOmvV46pVBbSMywJn 1amDkxxOcdFT3yLROcpxrh GIHunD8sMJRfqZLbbTqbLP 4wNTBpbjtm i471EyMvKXP9VZCjyYLrT5 FanW7jGzRbQAZmMCTzH7Kt gDVlMZwpF565TAgqOxC3UD QjdzKaF7Vn XVUaoFedEjK1b4F6De5Uo1 TozlirNVW8KVsgOZR7OpEo PzYwPsG9L8NyWzt5IXQxaG jqCU7xW5Kd DHWxktultcheuCV5TNZzWY QqnE58pSOnJNvuKq2sc3F4 a018TKXuNBTvrT25Wy4zzQ ogMTBwdCBU zQ1ytiyki8ezjgkbWnViGD SjLEw1EOr5OYAeoSuoWyEj YQM1CnO7WQX0sBIufB7akX cmdvrivL8n Oyc+P72ooE1pWMS4MOD9cr zpUISwrvCtCD35QF81P6Qn PjwvdGFibGU+PGRpdiBzdH zrJG7vPkZi b9ujm9FmYTptM2JhULDvGS etCxg5UZNeHHQ4mEY2xZ4o LPTxNQabw3F3kGP2L2Avue Fhxh4xy0bj RZZjRBcsQ66ylEQnr0I1AA XwkJI8DGBdrKmgOcJxiQ58 Oyc+YSUpsRait5AuWflru2 kfu4onzEn5 UmCgEBTmefRkgOktXOJ7n3 JzVs09A81gMRmzMYKrVGVg FOWxSQSbtMybvm0rsD3aGj 8+PGNvbCB3 yZG1bP8bSVEyMrG0JCqcO5 31BwRwiHWbGqdmi7vrj9jo fUn2NrKpEVJqddLxrRbaIF T0v1RwTm54 U06yLSviJFPmIKMuLPYyNA SmjVyqio1tvW8xAa3+PC9j f9ykxu99tE78zJL+PHRkIH B1vSdjKNeb SBQjbD8jLAqtUxJ4IXChSz ZtdD25yGFyWWbuHh3oqYhs yAbcQJ6uWWNmvxzsr110Jj Lro5tmKVFk lCAkNGflSEF7D41sy5W3QX ZnVINhMXQ6gPS1wF0mqQqg bjogbGVmdDsgdmVydGljYW xkJIjyP446 IHRvcDsnPlBhdGllbnQgTm WcLZe6I0RdExt7GUJpcYsn FA4wuKPsNDncIw5weRjetT zmBC9vYYFb arolp620SiRmm6nuTANzdA DvGEugOKM9K16ws1T0BFIz PSFrWMN6wEW6eS9peOsvlo ogbGVmdDsg ecRqyZpqVCckVJfmB505ZM RvcDsnPkJpcnRoIERhdGU6 IZ73IK31bYBzy2Y3gYR8L3 BhZGRpbmct ecxhiVA1CIXgCGRypT31Qv 6ajDezRc8rNCJsPVO0GWZi oTTlX3MxwS9nEhYyWQZhFF YhX5WvnZJu KIapS113AHcwGhT0DZSxkd WxR1EnWMCwwVwbBpW9v7J9 Wr2DU6B3MR39LB24mJXzu2 B0oVL4P3Pf AWXojgckigbuuGU1YSNpLX HmjS35Sj6pyDalMi3dQRFp CRR8OFPttOGwE0XklV2rRa AjMDAwMDAw O5IomLInLAgiV812XJpdEz F2EZTgamSpC6UyNCTmjHai NhI5s9M1Gd0FAGp1SE29VU 16yNWrd5J5 cQN3R7NmZVEmtppczyziiK F3SUCvKNXhmM71Ol2wzYtu Ts4rKMXwJIZ9DXLkiBUhB6 QzzN4vNaUn SGXpYXEhX6QjrPQrHIyfZ9 33VVtpHsD4YCHgacNaJ2Qz HPDrbXaqGzQ1e7F1Lq6GSE LzMJ72KZL1 bVW4PQ38SX09Q6ImQtgpmT FibGU+PHRhYmxlIHdpZHRo TUuwHMVzEgHsaHuyCQ8jTo 9yZGVyLWNv bDyvuRVjKgDmd3ibFCDeGO vwXA2ftXcyY1FdwZB5FLCp p5n3Ie75C95mJ9HcyDH+PG KniFO6zEO7 kA9zKoGxGyU9DTtjS890Gw SdgJUkFirzc9old3zpiJv1 CwZ0HVKwizEdrAvlUHK3g2 MoMe75F40j IHdpZHRoPSIxNSUiIHZhbG rmcg0qoE8dLv4+PGNvbCB3 aAO9cC3tKmNpSdP1PGdaR7 49InRvcCIv Ecdvj8cve7ziuLr8EpDwVV AathZzyRkhMBT4l8GuSs73 E8TbdUore0UwAhe1yf01rS Nif8I0iDU2 J0ShGZDaxkbnnREywPdoFN 7sOLViqejkSPEivW2pGYZg N7n6IhReLlC8UMvuL2Eqhs T8LJBftEYf ZEtuRUL0F90vu8I3REBiAM UlDYV1lQV5kB8ktBhanmvg bGVmdDsgdmVydGljYWwtYW bmO574TUIh nSmuGWNweG4gAKEuqYBwnH vfKA8kRJCwfylcTrlRUQDY EGTRSBVENGHNKP82DA60eF Nqo5U5hBX6 W9SnWQYsxsnssjioiII0DX DiWHBbmF02hRKzPCgvTy2k r0G3g780BYReNMPyhD78Sy 9udDogMTBw aEZMyO6sqddwm3splctpZb CoOTGzNKc8BNu7BDAqjPbw HuZkHUG5XmB8BDI7xSGgwR 1hbGlnbjog hJ6qSpf+ZVTwWwXbICb0TH wvdGQ+AMZcUNM5oBtdFXnt AURxwD7wCDQkB1g7HmMxHx Q0SNlyX9Ha CZNjomvcDy99yB6pCqWeSk E1KTyiH2XrhdA6BBUqpDPo WKjeQUI4L68bs2U6HDQlEZ UgWWK9aBY4 oW5rbZgyztitkGYbkMdfiz BmlWsfSRjsQKftI476DSWo uLfzEbP0LYchZBNlVA56JA 61fXPlb1R8 vHD3B2FaXDSzybncwqzptM D4LSBxJRPqqP72wQGvKStl Dx9uc6I1a788TKMzHCJfcQ 28Mg1snZfj JYGssOYEoV7ubxhty1ycwx avSpBnEXUxIFp7LSb7WROd pZeeMqSeVZS3UmN7SBX9hY NxlF3waAiw lqhtdZ8kGyt+RmVtYWxlPC 94GI86mNPvs5X1zEK7Q1Cy ZINwyrtbwidrgOM4GDUzCJ PmrP00aQUy CCpmGc4og9W0d174GNAuOE RkfK79Dd9bwKjqXVZriDBY sN0sreqou2pkvlviGeIgDO RaJHo1XZu8 AJInfJjnPzLkIRB4HlO2XY E7vFPwhQ6omEdswzplyV0g Oyc+KP9qcuzhxhL0UQ14YO 14T7GmKupu dGFibGU+PHRhYmxlIHdpZH YeDTolTSWkKuNswNzhSI4j Qn4bTEXiKRWmjIzshXYbKt Lvi3pqRWYj UUldHD6gwBubN3YjyHN5JM Nlu9z3Yi21F67kW0GqgHN+ CINlbVV1tIW9yQ9xPpDiGe W1TChmR074 HuMihTOtPqhgh3zyh6bzhK x5IaXgSBKripCxtXsfUCN3 z3FnLa73N82cVFxzFHPgOU IyMCUiIHZh hMvvrx6puY5sDx5+PGNvbC E8zBU1dQ6mZgAwWyO2MXdj T617ScJicLBpUbzcX99hM5 JvdXA+PHRy Crg2DKZhwJzxGU8ppWUmAG rlLa7vITV8WwAgPoOzNQkt N5VoKCLdbqxexukemIC1HV VuRRYalD00 Vm3qhBgqZj2oPAFdDEO1WK XmdVTbB4SqlV1uKyAiJKUd FCFmC3EkfSPxPBnoL496SB utVqQ5PKBk djZyW7VjQCTcvLimRxX7c4 C3Lx1RwWwedWQaIH3sZlUm AZi6D6GaFsz5SYSrbMqkMZ 0ncGFkZGlu Cl0guEcldVyiCD3sEPZjwm yar191ZzQyt6arTYCtpQOp VUtwGJS8W76pg6F7FZUhGL IeQYX0vUC4 cR5bjMkuiigrrYWlaVbzms BbzFtqZAujOCsgK975YJFi uSmaPbJUPal8Y3HaQye8MB EjlRivLF3g tLFqLVvpOq1anTgkdTgqEN 8pQRRxokuno977XjJxw5ay OFJyiVIlMVftFSU4T97pk9 S5VSJkCIQa IBC0aVQ7vJ2woPgrvkzakW VmdDsgdmVydGljYWwtYWxp I698KQAtmGgoXm7RGyi6K3 GkEbn5WQJo jVwsEN4nsYWqRCprKh0ypF gvoIutOF8hQLErggldc972 BxXwf6gaIHYnnJElAJopLV I1J22rw4Q1 LLWgASBhBYY8eUG8wS4reG lnbjogbGVmdDsgdmVydGlj DKlpWKmlF104KLRkaKykEo BheWVyOjwv dGQ+YO22ol09Q9GbEpuwMa d7QVIzLZM3xBH2jT0vLEAv LZgfg9Z7eQB6T5QmatHuht 0vo1txQBEw ZTog (more content not included)... 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 She states they are unsure whether the cat is up-to-date on its immunizations. She states that her dog is one after the cat, and she attempted to black pickler the cat when the cat turned and [...] Appropriate mood & affect. Integumentary: Warm, Dry, [place]. Puncture wounds noted to the left thumb [...] Assessment/Plan 1. Cat bite of left hand (S61.612A: Open bite of left hand, initial encounter) 2. Cat scratch of lower leg (S80.994J: Abrasion, unspecified lower leg, initial encounter) Orders: [...] DARCY In 3 days 04/08/2021 EDT [address] [place] [address] Business (1) Additional Instructions: Wear the splint [...] body noted. Read By: Alexandr Eduardo PA-C [facility] Comment on above: Result Comment: Elec tronically Signed By: Alexandr Eduardo PA-C\.br\Date and Time Signed: 04/05/21 21:31 EDT\.br\Electronically Co-Signed By: Walter Aguilar, Abdoulaye Terrazas\Date and Time Co-Signed: 04/06/21 11:28 EDT Animal Bite Investigationon 04-05-2021 Animal Bite Investigation [id number] 00CD:127 Normal [facility] Consent for Treatmenton 03-24 Consent for Treatment [id number] 0CD:127 Normal [facility] Discharge Instructionson Discharge Instructions [id number] .[id number]:127 Normal [facility] ED Clinical Summaryon 2020 ED Clinical Summary [place] [id number] ED Clinical Summary Person Information Name: MIGUEL GONZALEZ [facility] Age: 65 Years : 1955 Sex: Female Language: Russian PCP: BLU KOTHARI MD Marital Status: Visit [...] 04/05/2021 14:46:42 04/05/2021 14:46:42 04/05/2021 14:46:42 ADDRESS: [address] [place] [address] [address] [place] [id number] [facility] DOC NOTES: MEDICAL INFORMATION: Prescriptions Given: [...] Follow up: With: Address: When: BLU [address] [place] [address] [employer] (1) In 3 days 04/08/2021 Comments: Wear [...] hand; 2:Cat scratch of lower leg Normal [facility] ED Patient Education Noteon 04-05-2021 ED [...] and water are not available, use 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 ? Change your dressing as told by [...] bad smell. Medicines ? Take or apply jpfp-bgz-tbcoiku and prescription medicines only as told by [...] antibiotic medic (more content not included)... Normal [facility] ED Patient Summaryon 021 ED Patient Summary [place] [id number] Patient Discharge Instructions Person Information Name: MIGUEL GONZALEZ Age: 65 Years Arrival Date: 04/05/2021 12:55:11 Discharge Diagnosis: 1:Cat bite of left hand; 2:Cat scratch of lower leg Primary Care Physician: BLU KOTHARI MD Provider Information Primary Provider: Abdoulaye Watson M.D. Advanced Produce Wrapper:Alexandr Eduardo PA-C The exam and treatment you received in the Emergency Department were for an urgent problem and are not intended as complete care. It is important that you follow up with a doctor, nurse practitioner, or physician?s assistant director of public works for ongoing care. If your symptoms become worse or you do not improve as expected and you are unable to reach your usual health care provider, you should return to the Emergency Department. We are available 24 hours a day. MIGUEL GONZALEZ has been given the following list of patient education materials, prescriptions and follow-up instructions: Follow-up Instructions: With: Address: When: BLU KOTHARI [address] [place], [place] [address] [address] Business (1) In 3 days 04/08/2021 Comments: [...] opioids can be used to help relieve ajfxrhtd-va-devseg pain and are often prescribed following a [...] and Drug (more content not included)... Normal [facility] Vaccinationson 04-05-2021 Vaccinations [id number] .00CD:127 Normal [facility] XR Finger(s) Min 2 Views Lef [...] M.D. Transcribed by: MAYELIN Technologist: HARRY Neal [facility] Covid-19 PCR (CVDTBH)on 11-25 Covid-19 PCR NOT DETECTED Normal NOT DETECTED [facility] Comment on above: Result Comment: This test is not yet approved or cleared by the [place] FDA. When there are no FDA-approved or cleared tests available, and other criteria are met, FDA can make tests available under an emergency access mechanism called an Emergency Use Authorization (EUA). The EUA for this test is supported by the [place] of Health and Human Service's (HHS's) declaration [...] longer be used). Performed By: #### [facility] #### [facility] [address] [place] [address] Adore Hale EUA Statement SEE BELOW Normal [facility] Comment on above: Result Comment: This test is not yet approved or cleared by the [place] FDA. When there are no FDA-approved or cleared tests available, and other criteria are met, FDA can make tests available under an emergency access mechanism called an Emergency Use Authorization (EUA). The EUA for this test is supported by the Early Education Teacher of Health and Human Service?s (HHS?s) declaration [...] consistent with SARS-CoV-2. Performed By: #### [facility] #### [facility] [address] [place], [place] [id number] Adore Hale Vital Signs Date Time Vital Sign Value Performing Clinician Faci sayray 03-25-2025 08:54-0400 Body height 144.8 cm Blu Kothari MD Work Phone: [facility] 03-25-2025 08:54-0400 Body mass index (BMI) [Ratio] 26.81 kg/m2 Blu Kothari MD Work Phone: [facility] 03-25-2025 08:54-0400 Body weight 56.2 kg Blu Kothari MD Work Phone: [facility] 03-25-2025 08:54-0400 Diastolic blood pressure 102 mm[Hg] Blu Kothari MD Work Phone: [facility] 03-25-2025 08:54-0400 Heart rate 68 /min Blu Kothari MD Work Phone: [facility] 03-25-2025 08:54-0400 Respiratory rate 16 /min Blu Kothari MD Work Phone: [facility] 03-25-2025 08:54-0400 SaO2% (BldA) [Mass fraction] 98 % Blu Kothari MD Work Phone: [facility] 03-25-2025 08:54-0400 Systolic blood pressure 164 mm[Hg] Blu Kothari MD Work Phone: [facility] 03-07-2025 09:18-0400 Body height 144.8 cm Blu Kothari MD Work Phone: [facility] 03-07-2025 09:18-0400 Body mass index (BMI) [Ratio] 26.62 kg/m2 Blu Kothari MD Work Phone: [facility] 03-07-2025 09:18-0400 Body weight 55.79 kg Blu Kothari MD Work Phone: [facility] 03-07-2025 09:18-0400 Diastolic blood pressure 76 mm[Hg] Blu Kothari MD Work Phone: [facility] 03-07-2025 09:18-0400 Heart rate 70 /min Blu Kothari MD Work Phone: [facility] 03-07-2025 09:18-0400 SaO2% (BldA) [Mass fraction] 99 % Blu Kothair MD Work Phone: [facility] 03-07-2025 09:18-0400 Systolic blood pressure 128 mm[Hg] Blu Kothari MD Work Phone: [facility] 02-18-2025 09:04-0400 Body height 144.8 cm Blu Kothari MD Work Phone: [facility] 02-18-2025 09:04-0400 Body mass index (BMI) [Ratio] 26.83 kg/m2 Blu Kothari MD Work Phone: [facility] 02-18-2025 09:04-0400 Body weight 56.25 kg Blu Kothari MD Work Phone: [facility] 02-18-2025 09:04-0400 Diastolic blood pressure 74 mm[Hg] Blu Kothari MD Work Phone: [facility] 02-18-2025 09:04-0400 Heart rate 72 /min Blu Kothari MD Work Phone: [facility] 02-18-2025 09:04-0400 SaO2% (BldA) [Mass fraction] 98 % Blu Kothari MD Work Phone: [facility] 02-18-2025 09:04-0400 Systolic blood pressure 132 mm[Hg] Blu Kothari MD Work Phone: [facility] 09-23-2024 08:16-0400 Body height 144.8 cm April MERAZ Work Phone: [facility] 09-23-2024 08:16-0400 Body mass index (BMI) [Ratio] 25.75 kg/m2 April MERAZ Work Phone: [facility] 09-23-2024 08:16-0400 Body weight 53.98 kg April Daren PA Work Phone: [facility] 08-20-2024 08:35-0400 Body height 144.8 cm Alexia Kohlimer PA Work Phone: [facility] 08-20-2024 08:35-0400 Body mass index (BMI) [Ratio] 25.92 kg/m2 Alexia Hemmer PA Work Phone: [facility] 08-20-2024 08:35-0400 Body weight 54.34 kg Alexia Hemmer PA Work Phone: [facility] 08-20-2024 08:35-0400 Diastolic blood pressure 86 mm[Hg] Alexia Hemmer PA Work Phone: [facility] 08-20-2024 08:35-0400 Heart rate 70 /min Alexia Hemmer PA Work Phone: [facility] 08-20-2024 08:35-0400 Respiratory rate 16 /min Alexia Hemmer PA Work Phone: [facility] 08-20-2024 08:35-0400 SaO2% (BldA) [Mass fraction] 96 % Alexia Hemmer PA Work Phone: [facility] 08-20-2024 08:35-0400 Systolic blood pressure 138 mm[Hg] Alexia Hemmer PA Work Phone: [facility] 07-27-2024 11:58-0400 Body height 144.8 cm Isabel Catherine GEOSCIENCES ASSOCIATE PROFESSOR Work Phone: [facility] 07-27-2024 11:58-0400 Body mass index (BMI) [Ratio] 25.75 kg/m2 Isabel Catherine NP Work Phone: [facility] 07-27-2024 11:58-0400 Body weight 53.98 kg Isabel Catherine NP Work Phone: [facility] 07-21-2024 14:44-0400 Body height 147.3 cm Blu Kothari MD Work Phone: [facility] 07-21-2024 14:44-0400 Body mass index (BMI) [Ratio] 25.71 kg/m2 Blu Kothari MD Work Phone: [facility] 07-21-2024 14:44-0400 Body weight 55.79 kg Blu Kothari MD Work Phone: [facility] 07-21-2024 14:44-0400 Diastolic blood pressure 80 mm[Hg] Blu Kothari MD Work Phone: [facility] 07-21-2024 14:44-0400 Heart rate 79 /min Blu Kothari MD Work Phone: [facility] 07-21-2024 14:44-0400 SaO2% (BldA) [Mass fraction] 98 % Blu Kothari MD Work Phone: [facility] 07-21-2024 14:44-0400 Systolic blood pressure 130 mm[Hg] [...] encounter procedure Blu Kothari II Work Phone: [facility] [place] Work Phone: Start: 03-18-2025 End: 03-18-2025 ambulatory Blu Kothari II Work Phone: [facility] Work Phone: Start: 03-07-2025 End: 03-07-2025 Bamboo [...] Start: 10-19-2024 End: 10-19-2024 Refill Isabel Catherine [employer] PROFESSOR Work Phone: [facility] Comment on above: [...] esophagitis; Age-related osteoporosis without current pathological fracture ([facility]/HCC); Cervical spondylosis without myelopathy; Lumbar paraspinal muscle spasm; Overweight (BMI 25.0-29.9); Elevated LDL cholesterol level ([facility]); History of hysterectomy; Hypercalcemia; Other problems related [...] 07-27-2024 End: 07-27-2024 Bamboo flowsheet Isabel Catherine [employer]CI[employer] ASSOCIATE PROFESSOR Work Phone: [facility] Start: 07-27-2024 End: 07-27-2024 Bamboo flowsheet Isabel Catherine [employer]CI[employer] ASSOCIATE PROFESSOR Work Phone: [facility] Start: 07-27-2024 End: 07-27-2024 Office outpatient new 30 minutes Isabel Catherine [employer]CI[employer] ASSOCIATE PROFESSOR Work Phone: [facility] Comment on above: Internal derangement of right shoulder (Primary Dx); Right shoulder pain, unspecified chronicity Start: 07-27-2024 End: 07-27-2024 ambulatory ISABEL CATHERINE Not Available Start: 07-21-2024 End: 07-21-2024 Office outpatient visit 25 minutes Blu Kothari MD Work Phone: [facility] Comment on above: Cervical spondylosis without myelopathy (Primary Dx); Age-related osteoporosis without current pathological fracture ([facility]); Primary hypertension ([facility]); Gastroesophageal reflux disease without esophagitis; Lumbosacral spondylosis with radiculopathy; Elevated LDL cholesterol level ([facility]); Shoulder capsulitis, right Start: 07-21-2024 End: 07-21-2024 [...] complete minimum 2 views Isabel Brown Mariaa [employer] ASSOCIATE PROFESSOR Work Phone: Start: 07-03-2023 H/O: hysterectomy History [...] pain, chronic Expected: 02/18/2025 (Approximate), Expires: 02/18/2026 [facility] Work Phone: Comment on above: Expected: [...] for malign ant neoplasm of breast Mammogram [facility] Comment on above: Postponed from 05/13 (Patient Refused) Start: 08-20-2024 End: 08-20-2025 CBC W Auto Differential panel - Blood CBC and differential Lab Routine Medicare annual wellness visit, subsequent Primary hypertension (CMS/HCC) Expected: 08/20/2024 (Approximate), Expires: 08/20/2025 [facility] [employer] Work Phone: Comment on above: Expected: 08/20/2024 [...] Procedure [facility] [address] AD[address] [facility] [place] [id number] [facility] Start: 08-06-2024 End: 08-06-2024 Patient encounter procedure 08/06/2024 9:30 AM EDT Office Visit [facility] [address] [facility] [address] [place] [id number] Blu Kothari MD [address] [facility] [address] [place], [place] [id number] [facility] Start: 08-01-2024 Medicare Annual [...] Visit [facility] [address] [facility] [address] [place] [address] Isabel Catherine, GEOSCIENCES ASSOCIATE PROFESSOR [address] [facility] [address], [place] [id number] Right shoulder pain, unspecified chronicity [facility] Comment on above: Right shoulder pain, unspecified chronicity Start: 07-25-2024 Influenza vaccination Influenza Vacc ine (#1) [facility] Start: 07-21-2024 End: 07-21-2024 Patient encounter procedure 07/21/2024 2:45 PM EDT Office Visit [facility] [address] [facility] [address] [place] [address] Blu Kothari MD [address] [facility] [address] [place] [address] Arrived [facility] Comment on above: Arrived Start: 12-29-2023 End: 12-29-2023 Patient encounter procedure 12/29/2023 3:30 PM EST Office Visit [facility] [address] [facility] [address] [place] [address] Blu Kothari MD [address] [facility] [address] [place] [address] [facility] Start: 06-20-2022 Pneumococcal Vaccine : 65+ Years (2 - PCV) Pneumococcal Vaccine: 65+ Years (2 - PCV) [facility] Start: 06-20-2022 Pneumococcal Vaccine : 65+ Years (2 of 2 - PCV) Pneumococcal Vaccine: 65+ Years (2 of 2 - PCV) [facility] Start: 1995 Screening for malign ant neoplasm of breast Mammogram [facility] Start: 1955 Screening for malign ant neoplasm of colon [facility] Immunizations Immunization Date Immunization Notes Care Provider Vanessa higginbotham 10-10-2024 Pneumococcal Conjuga te PCV 20 Blu Kothari MD Work Phone: [facility] 10-03-2024 influenza, high dose seasonal, preservative-free Blu Kothari MD Work Phone: [facility] 08-07-2023 Influenza, Seasonal, Quadrivalent, Adjuvanted Blu Kothari MD Work Phone: [facility] 08-07-2023 influenza virus vacc ine, unspecified formulation Blu Kothari MD Work Phone: [facility] 11-10-2022 Influenza, High-dose Seasonal, Quadrivalent, Preservative Free Blu Kothari MD Work Phone: [facility] 03-02-2022 zoster vaccine recombinant Padma Kothari MD Work Phone: [facility] 11-30-2021 zoster vaccine recombinant Padma Kothari MD Work Phone: [facility] 09-04-2021 Influenza, High-dose Seasonal, Quadrivalent, Preservative Free Blu Kothari MD Work Phone: [facility] 06-20-2021 pneumococcal polysaccharide vaccine, 23 valent Blu Kothari MD Work Phone: [facility] 04-05-2021 tetanus toxoid, redu viridiana diphtheria toxoid, and acellular pertussis vaccine, adsorbed Blu Kothari MD Work Phone: [facility] 08-17-2020 Influenza, High-dose Seasonal, Quadrivalent, Preservative Free Blu Kothari MD Work Phone: [facility] Payers Date Payer Category Payer Self-pay 2023 Private Health Insurance [id number] 2023 Unknown [id number] 2022 Medicare 2022 Unknown 2022 Medicare [id number] 2022 Medicare [id number] 1959 Unknown [id number] 1955 Unknown [id number] [id number] 1955 Unknown [id number] 2.16.840.1.813370.3.579.2.196 1955 Unknown [id number] 2.16.840.1.377781.3.579.2.196 1955 Unknown [id number] 2.16.840.1.909363.3.579.2.196 1955 Unknown [id number] 2.16.840.1.023099.3.579.2.196 1955 Unknown [id number] 2.16.840.1.575568.3.579.2.1259 1955 Unknown [id number] 2.16.840.1.853889.3.579.2.1259 1955 Unknown [id number] 2.16.840.1.715169.3.579.2.1259 1955 Unknown [id number] 2.16.840.1.895461.3.579.2.1259 1955 Unknown [id number] 2.16.840.1.310529.3.579.2.125 1955 Unknown [id number] 2.16.840.1.076164.3.579.2.1259 1955 Unknown [id number] 2.16.840.1.746908.3.579.2.1259 1955 Unknown [id number] 2.16.840.1.750741.3.579.2.9 1955 Unknown [id number] 2.16.840.1.004583.3.579.2.1258 1955 Unknown [id number] 2.16.840.1.810583.3.579.2.1258 1955 Unknown [id number] 2.16.840.1.137737.3.579.2.1258 1955 Unknown [id number] 2.16.840.1.134559.3.579.2.1258 1955 Unknown [id number] 2.16.840.1.923149.3.579.2.1258 1955 Unknown [id number] 2.16.840.1.849419.3.579.2.1258 1955 Unknown [id number] 2.16.840.1.909665.3.579.2.1259 Private Health Insurance [facility] [id number] Unknown [id number] 2.16.840.1.506747.3.579.2.531 Social History Date Type Detail Facility Start: 07-03-2023 Tobacco smoking stat [facility] Never smoked tobacco [facility] Start: 07-03-2023 [...] [facility] Start: 07-27-2024 Tobacco smoking stat [facility] Ex-smoker [facility] Work Phone: History of tobacco use Current smoker [facility] History of tobacco use Cigarette Smoker [facility] Start: 08-20-2024 End: 03-25-2025 Alcoholic beverage intake Current drinker of alcohol (finding) [facility] ever smoked [facility] Work Phone: Start: 03-19-2025 Sex Female (finding) [facility] Start: 1955 Sex Assigned At Female F [facility] Functional Status Date Assessment Result Facility 03-25-2025 Patient Health [facility] ionnaire 2 item (PHQ-2) [Reported] [facility] 03-07-2025 Patient Health [facility] ionnaire 2 item (PHQ-2) [Reported] [facility] Clinical Notes 12-29-2023 to 03-25-2025 Blu Kothari [...] 8 Multiple Vitamin (Multivitamin Adult) tablet Daily [place]-3 Fatty Acids (Fish Oil) 1000 MG capsule [...] cancer Father Past Medical History: Diagnosis Date 'Dakqa-ofx-ticlf' with signs of malnutrition Arthritis Cervical spondylolysis [...] Greater than 25 minutes was spent in vofv-wm-vuvs consultation and coordination of care. Follow up in about 6 months (around 09/25/2025) for Routine F/U. documented in this encounter [facility] 03-07-2025 History of Presen t illness Narrative [...] 8 Multiple Vitamin (Multivitamin Adult) tablet Daily [place]-3 Fatty Acids (Fish Oil) 1000 MG capsule [...] cancer Father Past Medical History: Diagnosis Date 'Eyhwn-mse-gpdzn' infant with signs of malnutrition Arthritis Cervical [...] for Test/Lab Review. documented in this encounter [facility] 02-18-2025 History of Presen t illness Narrative [...] 8 Multiple Vitamin (Multivitamin Adult) tablet Daily. [place]-3 Fatty Acids (Fish Oil) 1000 MG capsule [...] cancer Father Past Medical History: Diagnosis Date 'Eojtb-rvd-uxhdi' infant with signs of malnutrition Arthritis Cervical [...] for Test/Lab Review. documented in this encounter [facility] 01-03-2025 History of Presen t illness Narrative [...] Referral Reason: Specialty Services Required Referral Location: [facility] Requested Specialty: Physical Therapy Number of Visits [...] requiring urgent evaluation. documented in this encounter [facility] 12-02-2024 History of Presen t illness Narrative Images from the original note were not included. HISTORY OF PRESENT ILLNESS: POST OP PT Miguel Gonzalez is an 69 y.o. @ female. (EST PT) S/P (R) SHOULDER SCOPE 10/20/24 (6WKS 1DAY) S/P [facility] PHYSICAL THERAPY ORDER (HAS NOT STARTED) HAS NOT STARTED PHYSICAL THERAPY YET ; STATES SHE DOES HAVE THERAPY SCHEDULED @ [facility] 12/06/24 IF SHE IS ALLOWED TO DRIVE BY THEN OTHERWISE SHE WILL SCHEDULE WITH ZENA[facility] AT [facility] HEP. PRESENTS WEARING SLING TODAY, INCORRECTLY. NOTES [...] Referral Reason: Specialty Services Required Referral Location: [facility] Scheduling Requested Specialty: Physical Therapy Number of Visits Requested: 1 ASSESSMENT: ICD-10-CM 1. S/P arthroscopy of right shoulder Z98.890 Ambulatory referral to Physical Therapy S/p rotator cuff repair and SAD Assessment & Plan 1. Post-operative status following right shoulder arthroscopy, rotator cuff repair, and subacromial decompression. She has expressed a preference for outpatient therapy at [facility]. Given her satisfactory passive and active range [...] requiring urgent evaluation. documented in this encounter [facility] 11-04-2024 History of Presen t illness Narrative [...] requiring urgent evaluation. documented in this encounter [facility] 11-04-2024 Instructions MARIYA David - 11/04/2024 1:30 [...] soon as possible documented in this encounter [facility] 10-19-2024 Telephone encount er Note Post op pain rx. PDMP reviewed [facility] 10-19-2024 Miscellaneous Notes Formattin g of this note might be different from the original. Post op pain rx. PDMP reviewed documented in this encounter [facility] 09-23-2024 History of Presen t illness Narrative Images from the original note were not included. GENERAL HISTORY AND PHYSICAL: NAME: Miguel Gonzalez : 1955 HISTORY OF PRESENT ILLNESS: Miguel Gonzalez is an 69 y.o. @ female. Here for surgery instructions - (R) SHOULDER SCOPE 10/20/2024 @[facility] PAST MEDICAL HISTORY: Past Medical History: Diagnosis Date 'Cxlma-fom-wezax' with signs of malnutrition Arthritis Cervical spondylolysis [...] food Multiple Vitamin (Multivitamin Adult) tablet Daily [place]-3 Fatty Acids (Fish Oil) 1000 MG capsule [...] SX INSTRUCTIONS GIVEN TODAY 09/23 @8:30AM - [place] ULTRASLING GIVEN TODAY ARTHREX NOTIFIED Patient presents [...] Follow up for 11/04 @1:30pm w/aline in [place]. documented in this encounter [facility] 09-15-2024 History of Presen t illness Narrative Images from the original note were not included. HISTORY OF PRESENT ILLNESS: EST PT Miguel Gonzalez is an 69 y.o. @ female. (EST PT) RECHECK (R) SHOULDER ; S/P HEP XRAYS, 07/27/24 IN [facility] MRI 08/11/24 IN EPIC NO [...] food Multiple Vitamin (Multivitamin Adult) tablet Daily [place]-3 Fatty Acids (Fish Oil) 1000 MG capsule [...] Son Waite D.O. documented in this encounter [facility] 08-23-2024 Telephone encount er Note Spoke with patient she will see 09/15 for her next scheduled appt. [facility] 08-23-2024 Miscellaneous Notes Formattin g of this note might be different from the original. Spoke with patient she will see 09/15 for her next scheduled appt. Patient left requesting to go ahead and schedule her sx. Please advise [phone]. documented in this encounter [facility] 08-23-2024 Telephone encount er Note Patient left requesting to go ahead and schedule her sx. Please advise [phone]. [facility] 08-20-2024 History of Presen t illness Narrative [...] 3 Multiple Vitamin (Multivitamin Adult) tablet Daily. [place]-3 Fatty Acids (Fish Oil) 1000 MG capsule [...] cancer Father Past Medical History: Diagnosis Date 'Dawym-vwu-wirgk' with signs of malnutrition Arthritis Cervical spondylolysis [...] Do you have a medical power of document review attorney?: Yes Objective : BP 138/86 Pulse [...] shoulder The patient is seeing a medical research assistant for this condition, treatment is deferred to that specialist. Correspondence from that specialist and any available testing were reviewed during today's visit. Follow up in about 3 months (around 11/19/2024) for Medication Follow Up. Electronically signed by Alexia Reid PA-C on August 20, 2024 documented in this encounter [facility] 08-13-2024 History of Presen t illness Narrative HISTORY OF PRESENT ILLNESS: EST PT Miguel Gonzalez is an 69 y.o. @ female. (EST PT ; LAST APPT W/ ISABEL) RECHECK (R) SHOULDER ; HERE FOR MRI RESULTS 08/11/24 IN [facility] XRAYS, 07/27/24 IN [facility] MRI 08/11/24 IN [facility] NO MDP / PREDNISONE NO [...] food Multiple Vitamin (Multivitamin Adult) tablet Daily [place]-3 Fatty Acids (Fish Oil) 1000 MG capsule [...] she states that she is going to [place] in 2 weeks and then her is scheduled to consult at [facility] 09/10 ; patient would like to hold [...] Son Waite D.O. documented in this encounter [facility] 07-27-2024 History of Presen t illness Narrative [...] MEDICAL HISTORY: Past Medical History: Diagnosis Date 'Allem-puo-xtvhm' infant with signs of malnutrition Arthritis Cervical [...] food Multiple Vitamin (Multivitamin Adult) tablet Daily [place]-3 Fatty Acids (Fish Oil) 1000 MG capsule [...] develop for requiring urgent evaluation. Isabel Catherine APRN-HOT SHOT documented in this encounter [facility] 07-21-2024 History of Presen t illness Narrative [...] 3 Multiple Vitamin (Multivitamin Adult) tablet Daily. [place]-3 Fatty Acids (Fish Oil) 1000 MG capsule [...] cancer Father Past Medical History: Diagnosis Date 'Yxyzv-ktg-kiuct' with signs of malnutrition Arthritis Cervical spondylolysis [...] myelopathy Age-related osteoporosis without current pathological fracture ([facility]) Primary hypertension ([facility]) Gastroesophageal reflux disease without esophagitis Lumbosacral spondylosis [...] As Previously Scheduled. documented in this encounter [facility] 12-29-2023 Telephone encount er Note sent [facility] 12-29-2023 Miscellaneous Notes Formattin g of this note might be different from the original. sent documented in this encounter [facility] Evaluation note Diagnosis Cervical spondylosis without myelopathy- Primary documented in this encounter [facility]* Diagnosis Internal derangement of right shoulder- Primary documented in this encounter [facility]* Diagnosis Pre-op examination- Primary documented in this encounter [facility]* Diagnosis Internal derangement of right shoulder- Primary documented in this encounter [facility]* Diagnosis S/P arthroscopy of right shoulder- Primary documented in this encounter [facility]* Diagnosis Cervical spondylosis without myelopathy- Primary Age-related osteoporosis without current pathological fracture ([facility]) Primary hypertension ([facility]) Unspecified essential hypertension Gastroesophageal reflux disease without esophagitis Esophageal reflux Lumbosacral spondylosis with radiculopathy Elevated LDL cholesterol level ([facility]/HCC) Shoulder capsulitis, right documented in this encounter [facility] note* Diagnosis Internal derangement of right shoulder- Primary Right shoulder pain, unspecified chronicity documented in this encounter [facility]* Diagnosis Internal derangement of right shoulder- Primary documented in this encounter [facility]* Diagnosis Medicare annual wellness visit, subsequent- Primary ACP (advance care planning) Other specified counseling Primary insomnia Persistent disorder of initiating or maintaining sleep Lumbosacral spondylosis with radiculopathy Post herpetic neuralgia ([facility]CC) Herpes zoster with other nervous system complications Primary hypertension ([facility]) Unspecified essential hypertension Gastroesophageal reflux disease without esophagitis Esophageal reflux Age-related osteoporosis without current pathological fracture ([facility]) Cervical spondylosis without myelopathy Lumbar paraspinal muscle spasm Other symptoms referable to back Overweight (BMI 25.0-29.9) Overweight Elevated LDL cholesterol level (CMS/HCC) History of hysterectomy Acquired absence of both cervix and uterus Hypercalcemia Other problems related to lifestyle Internal derangement of right shoulder documented in this encounter [facility]* Diagnosis S/P arthroscopy of right shoulder- Primary documented in this encounter [facility] note* Diagnosis S/P arthroscopy of right shoulder- Primary documented in this encounter [facility]* Diagnosis Lumbosacral spondylosis with radiculopathy- Primary Right flank pain, chronic documented in this encounter [facility]* Diagnosis Lumbosacral spondylosis with radiculopathy- Primary Right flank pain, chronic Other idiopathic scoliosis, thoracolumbar region Lumbar disc narrowing Degeneration of lumbar or lumbosacral intervertebral disc documented in this encounter [facility] HealthcareEvaluation noteNo assessment information availableMain [facility] Work Phone: Evaluation note* Diagnosis Lumbosacral spondylosis with radiculopathy- Primary documented in this encounter [facility] HealthcareReason for referral (narrative)* Consultation (Routine) - Pending Review Specialty Diagnoses / Procedures Referred By Contact Referred To Contact Orthopaedic Surgery Diagnoses Shoulder capsulitis, right Blu Kothari MD [address] [facility] [address] [place] [address] April Mercedes PA [address] [facility] [address] [place] [address] Referral ID Status Reason Start Date Expiration Date Visits Requested Visits Authorized [id number] Pending Review Specialty Services Required 07/21/2024 01/17/2025 1 1 [facility] Summary Purpose Family History No Family History [...] shoulder right wo IV contrast Isabel Catherine, GEOSCIENCES ASSOCIATE PROFESSOR [address] [place] [address] [facility] [place] [address] Referral ID Status Reason Start Date Expiration Date V isits Requested Visits Authorized [id number] Authorized 07/27/2024 01/23/2025 1 1 Chief Complaint and Reason for Visit Chief Complaint Admit Date M47.27 M41.25 M51.369 March 18, 2025 1 0:57am Additional Source Comments INFORMATION SOURCE (unrecogn ized section and content) DATE CREATED AUTHOR 12/29/2020 [facility] DATE CREATED AUTHOR AUTHOR'S ORGANIZ ATION 07/09/2021 [facility] DATE CREATED AUTHOR AUTHOR'S ORGANIZ ATION 11/14/2023 [facility] DATE CREATED AUTHOR AUTHOR'S ORGANIZ ATION 02/26/2025 [facility] DATE CREATED AUTHOR AUTHOR'S ORGANIZ ATION 03/30/2025 [facility] EPIC DATE CREATED AUTHOR AUTHOR'S ORGANIZ ATION 04/09/2025 [facility] Reason for Visit (unrecogniz ed [...] Care Teams (unrecognized sec tion and content) Tetryl Boiling Tub Operator Relationship Specialty Start Date End Date Blu Kothari MD [address] [facility] [address] [place] [address] PCP - General Internal Medicine 04/01/23 Tetryl Boiling Tub Operator Relationship Specialty Start Date End Date Blu Kothari MD [address] [facility] [address] [place] [address] PCP - General Internal Medicine 04/01/23 Tetryl Boiling Tub Operator Relationship Specialty Start Date End Date Blu Kothari MD [address] [facility] [address] [place] [address] PCP - General Internal Medicine 04/01/23 Tetryl Boiling Tub Operator Relationship Specialty Start Date End Date Blu Kothari MD [address] [facility] [address] [place] [address] PCP - General Internal Medicine 04/01/23 Tetryl Boiling Tub Operator Relationship Specialty Start Date End Date Blu Kothari MD [address] [facility] [address] [place] [address] PCP - General Internal Medicine 04/01/23 Tetryl Boiling Tub Operator Relationship Specialty Start Date End Date Blu Kothari MD [address] [facility] [address] [place] [address] PCP - General Internal Medicine 04/01/23 Tetryl Boiling Tub Operator Relationship Specialty Start Date End Date Blu Kothari MD [address] [facility] [address] [place] [address] PCP - General Internal Medicine 04/01/23 Tetryl Boiling Tub Operator Relationship Specialty Start Date End Date Blu Kothari MD [address] [facility] [address] [place] [address] PCP - General Internal Medicine 04/01/23 Tetryl Boiling Tub Operator Relationship Specialty Start Date End Date Blu Kothari MD [address] [facility] [address] [place] [address] PCP - General Internal Medicine 04/01/23 Tetryl Boiling Tub Operator Relationship Specialty Start Date End Date Blu Kothari MD [address] [facility] [address] [place] [address] PCP - General Internal Medicine 04/01/23 Tetryl Boiling Tub Operator Relationship Specialty Start Date End Date Blu Kothari MD [address] [facility] [address] [place] [address] PCP - General Internal Medicine 04/01/23 Tetryl Boiling Tub Operator Relationship Specialty Start Date End Date Blu Kothari MD [address] [facility] [address] [place] [address] PCP - General Internal Medicine 04/01/23 Tetryl Boiling Tub Operator Relationship Specialty Start Date End Date Blu Kothari MD [address] [facility] [address] [place] [address] PCP - General Internal Medicine 04/01/23 Blu Kothari MD [address] [facility] [address] [place] [address] PCP - ACO Reach 12/31/24 Tetryl Boiling Tub Operator Relationship Specialty Start Date End Date Blu Kothari MD [address] [facility] [address] [place] [address] PCP - General Internal Medicine 04/01/23 Blu Kothari MD [address] [facility] [address] [place] [address] PCP - ACO Reach 12/31/24 Tetryl Boiling Tub Operator Relationship Specialty Start Date End Date Blu Kothari MD [address] [facility] [address] [place] [address] PCP - General Internal Medicine 04/01/23 Blu Kothari MD [address] [facility] [address] [place] [address] PCP - ACO Reach 12/31/24 Tetryl Boiling Tub Operator Relationship Specialty Start Date End Date Blu Kothari MD [address] [facility] [address] [place] [address] PCP - General Internal Medicine 04/01/23 Blu Kothari MD [address] [facility] [address] [place] [address] PCP - ACO Reach 12/31/24 Tetryl Boiling Tub Operator Relationship Specialty Start Date End Date Blu Kothari MD [address] [facility] [address] [place] [address] PCP - General Internal Medicine 04/01/23 Blu Kothari MD [address] [facility] [address] [place] [address] PCP - ACO Reach 12/31/24 Tetryl Boiling Tub Operator Relationship Specialty Start Date End Date Blu Kothari MD [address] [facility] [address] [place] [address] PCP - General Internal Medicine 04/01/23 Blu Kothari MD [address] [facility] [address] [place] [address] PCP - ACO Reach 12/31/24 Team Status: Active Member Role Status Dates Blu Kothari II MD Primary Care Provider Active Team Status: Inactive Member Role Status Dates Blu Kothari II MD Primary Care Provid er, Attending Provider Active Start: March 18, 2025 End: March 18, 2025 Tetryl Boiling Tub Operator Relationship Specialty Start Date End Date Blu Kothari MD [address] [facility] [address] [place] [address] PCP - General Internal Medicine 04/01/23 Blu Kothari MD [address] [facility] [address] [place] [address] PCP - ACO Reach 12/31/24 Goals (unrecognized [...] BE BASED ON THE PRIMARY CLINICAL RECORDS. [employer] [facility]. provides no warranty or guarantee of the accuracy or completeness of information in this document.
--- NOTE | 2025-05-19 07:56 | PM.CN ---
Consult Note: HPI Data of Consult Patient: known to practice within the last 3 years Requesting Physician: Tierney Kohli NP Primary Care Provider: CLAY TAVERAS Consult Narrative Reason for consult: back pain Narrative: Patricia Gonzalez a pleasant 69 year old female with chronic thoracic and lumbar pain presents for evaluation. Pt has noticed over the last 7 months increasing right low back and leg pain. Pain today 5/10, hurts , increasing with standing, walking, housework, activity. pain improved with sitting, lying, hot tub, and sleep. pt currently on mobic 15mg daily and tramadol 50mg PRN through PCP without side effects. continues to engage in HEP without benefit. Pain increasing to 6/10 at the worst. since last visit she underwent right L4-5 L5-S1 TFESI with significant relief for 1 week per pt, no longer reporting numbness tingling or pain in RLE. continues to endorse moderate to severe low back and right hip pain. cc:: CC: Tierney Kohli NP Review of Systems ROS Musculoskeletal Reports: back pain, extremity pain and joint pain PFSH PFSH Medical History Low back pain ?M54.50 - Low back pain, unspecified (ICD-10) Osteoarthritis ?M19.90 - Unspecified osteoarthritis, unspecified site (ICD-10) Acid reflux ?K21.9 - Gastro-esophageal reflux disease without esophagitis (ICD-10) High cholesterol ?E78.00 - Pure hypercholesterolemia, unspecified (ICD-10) Hypertension ?I10 - Essential (primary) hypertension (ICD-10) Surgical History History of hysterectomy ?Z90.710 - Acquired absence of both cervix and uterus (ICD-10) History of appendectomy ?Z90.49 - Acquired absence of other specified parts of digestive tract (ICD-10) Social History Smoking status: Former smoker Meds Home Medications and Allergies Home Medications ?Medication ?Instructions ?Recorded ?Confirmed ?Type amlodipine 2.5 mg tablet 2.5 mg PO DAILY 08/04/23 05/02/25 History meloxicam 15 mg tablet 15 mg PO DAILY 08/04/23 05/02/25 History omeprazole 40 mg capsule,delayed 40 mg PO DAILY 08/04/23 05/02/25 History release rosuvastatin 10 mg tablet (Crestor) 10 mg PO DAILY 08/04/23 05/02/25 History alendronate 70 mg tablet mg PO 04/14/25 History tramadol 50 mg tablet mg 04/14/25 History Allergies Allergy/AdvReac Type Severity Reaction Status Date / Time lisinopril Allergy Cough Verified 05/02/25 07:00 Exam Constitutional Documenting provider has reviewed patient's vital signs: yes Common normals: no apparent distress, oriented x3, healthy appearing, alert and well nourished General appearance: cooperative HENMT Common normals: normocephalic, hearing grossly normal bilaterally and moist oral mucous membranes Head and scalp: normocephalic Eye Common normals: PERRL Pupil: PERRL Neck & C-Spine Common normals: full ROM General: normal visual inspection Chest Common normals: inspection of chest normal Respiratory Common normals: normal respiratory effort, no retractions and no use of accessory muscles Back & Pelvis Thoracic spine/upper back: ROM limited, pain with ROM and thoracic spinal tenderness Lumbar spine/lower back: ROM limited, pain with ROM, lumbar spinal tenderness Lumbar spinal tenderness location: L1, L2 and L3 and straight leg raise negative bilaterally Sacroiliac joints: SI joint(s) abnormal Other: right positive allen(patricks), gaenslens, thigh thrust, compression test strength 5/5 in BLE, sensation intact BLE positive facet loading, pain on right greater than left at L2,3,4 Neuro Common normals: oriented x3 Sensorium/orientation: alert Psych Common normals: mental status grossly normal, thought process normal, cooperative, affect normal, speech normal and activity/motor behavior normal Speech: normal speech Thought process: normal thought process Assessment and Plan Assessment and Plan (1) Lumbar stenosis with neurogenic claudication: Assessment and Plan: 05/02/25 right L4/5 L5/S1 TFESI significant relief for 1 week, notes no pain with ambulating denies heaviness weakness or RLE pain. significant improvement on physical exam. suspect ongoing relief (2) Sacroiliitis: Assessment and Plan: continues to endorse moderate right SIJ pain (3) Thoracic scoliosis: (4) Lumbar spondylosis: (5) Myofascial pain: Plan 69 year old female with chronic thoracic and lumbar pain > 3 years unresponsive to >6 weeks of PT/provider guided HEP, heat, ice, tylenol, NSAIDs. thoracic xray consistent with degenerative changes and scoliosis, lumbar xray and MRI consistent with multilevel degenerative changes and stenosis. Pt continues to have moderate to severe right low back. recommend pt undergo right SIJ injection for sacroiliac joint pain. continue wearing TLSO back brace for chronic multilevel back pain and scoliosis, to be worn when performing ADLs and strenuous activities but as instructed to pt today she should not wear for extended periods of time or sleep. medications reviewed, no changes. f/u 2 weeks after injection.
== END 2025-05-19 07:47 | disposition home or self-care (01) ==
LOC: PM 07:47
PROVIDERS: PCP Internal Medicine; Visit Provider Nurse Practitioner
DX: M48.062 Spinal stenosis, lumbar region with neurogenic claudication (principal); M46.1 Sacroiliitis, not elsewhere classified; M41.84 Other forms of scoliosis, thoracic region; M47.816 Spondylosis without myelopathy or radiculopathy, lumbar region; M79.18 Myalgia, other site
CPT/HCPCS: G0463

== ENCOUNTER 2025-06-06 08:16 | Day surgery (SDC) | payer OTHER, MEDICARE, SELFPAY ==
--- OUTSIDE RECORDS SUMMARY | 2025-06-06 08:19 | XMS_ITS | Clinical Summary ---
Author Organization [facility] Address [id number] [address] [place] [address] Care Team Providers Care Screen Repairer Crusher Name Role Phone Blu Kothari MD Primary Care Provider Allergies No known active allergies Medications rosuvastatin [...] Take 400 Units by mouth daily. Active ajufzvsy-lsuw-P A-calcium &mins (THERAGRAN-M) 9 mg iron-400 mcg tablet Take 1 tablet by mouth daily. Active omega 9-vin-iaq-fish oil (FISH OIL) 300-1,000 mg capsule Take [...] on file Insurance [employer] Care Teams Screen Repairer Crusher Relationship Specialty Start Date End Date Blu Kothari MD [address] [facility] [address] [place] [address] PCP - General Internal Medicine 06/09/20
[2025-06-06 08:21] VITALS: BP 151/82; PULSE 72; TEMP 36.4; O2SAT 94
[2025-06-06] MEDS: IOHEXOL 240 MG/ML - 10 ML VIAL INJ (09:50)
[2025-06-06] MEDS: BUPIVACAINE HCL 0.25% PF 25 MG/10 ML VIAL 2 ML INJ (09:50)
[2025-06-06] MEDS: METHYLPREDNISOLONE ACETATE 40 MG/ML VIAL INJ (09:50)
[2025-06-06] MEDS: LIDOCAINE HCL 2% 400 MG/20 ML MDV INJ (09:50)
--- NOTE | 2025-06-06 09:50 | W.PM.PROCNOT ---
Date of procedure: 06/06/25 Pre-op diagnosis: Pain due to right sacroiliitis Post-op diagnosis: same as pre-op Procedure: Procedure: Right sacroiliac joint injection Medications: Bupivacaine 0.25% 4cc, depomedrol 40mg After informed consent was obtained, the patient was brought to the medical procedure unit and placed in the prone position, when a timeout was completed verifying correct patient, procedure, site, positioning, implant, and/or special equipment.? The skin overlying the area was prepped and draped in standard sterile fashion using alcohol.? A 25-gauge needle was inserted towards the right sacroiliac joint under direct fluoroscopic imaging.? Needle tip was advanced until the joint was encountered.? We instilled a total of 2 mL of solution.? Postoperatively needles were removed.? The patient tolerated the procedure well without complication.? The patient reported reduction in pain symptoms postoperatively. Anesthesia: Local Surgeon: Bouchra Angel Pathology: none sent Condition: stable Disposition: no change
[2025-06-06 10:12] VITALS: BP 192/88; BP 193/100; PULSE 78; PULSE 81; O2SAT 98; O2SAT 99
== END 2025-06-06 09:54 | disposition home or self-care (01) ==
LOC: SURGOUT 08:17
PROVIDERS: PCP Internal Medicine; Visit Provider Anesthesiology
DX: M46.1 Sacroiliitis, not elsewhere classified (principal); M53.3 Sacrococcygeal disorders, not elsewhere classified
CPT/HCPCS: 27096; J0665; J1010; Q9966

== ENCOUNTER 2025-06-22 08:15 | Outpatient (OUT) | payer OTHER, MEDICARE, SELFPAY ==
--- OUTSIDE RECORDS SUMMARY | 2025-06-22 08:17 | XMS_ITS | Clinical Summary ---
Author Organization [facility] Healthcare Address [address] [place] [address] Care Team Providers Care Marketing Designer Name Role Phone Blu Kothari MD Primary Care Provider [phone] Allergies Active Allergy Reactions Criticality Noted Date Comments Marcio Inhibitors Cough 07/03/2023 Medications cyanocobalamin (Vitamin B-12) 1000 MCG tablet Take 1,000 mcg by mouth Daily Active Multiple Vitamin (Multivitamin Adult) tablet Daily Active CALCIUM-VITAMIN D PO Take by mouth Daily Active [place]-3 Fatty Acids (Fish Oil) 1000 MG capsule [...] 03/25/2025 9:00 AM EDT Office Visit [facility] [place] [facility] [address] [facility] [address] [place] [address] Blu Kothari MD Lumbosacral spondylosis with radiculopathy (Primary Dx) 03/25/2025 Bamboo flowsheet [facility] [place] [facility] [address] [facility] [address] [place] [address] Blu Kothari MD 03/25/2025 Travel from Last 3 Months Immunizations Immunization [...] 03/25/2025 8:54 AM EDT Plan of Treatment Upcoming Encounters Date Type Department Care Team (Late st Contact Info) Description 08/12/2025 9:00 AM EDT Office Visit [facility] [place] [facility] [address] [facility] [address] [place] [address] Blu Kothari MD 112 [facility] [address] [place] [address] Health Maintenance Due Date Last Done Comments CT Colonography 1955 Colonoscopy 1955 FIT 1955 FOBT 1955 Sigmoidoscopy 1955 Mammogram 1995 Influenza Vaccine (#1) 2025 , 08/07/2023, 11/10/2022, Additional history exists Colorectal Cancer Screening 07/17/2026 FIT-DNA 07/17/2026 07/17/2023, 07/0 05/2020, 05/30/2020, Additional history exists Pneumococcal Vaccine: 65+ Years Completed 4, 06/20/2021 Procedures Procedure Name Priority Date/Time Associated Diagnosis Comments LAB COLOGUARD COLON CANCER SCREEN Routine 07/17/2023 7:30 PM EDT Screening for colorectal cancer from Last 3 Months or Most Recently Relevant to Health Maintenance Results * Cologuard?? colon cancer screening (07/17/2023 7:30 PM EDT) NONINV COLON CA DNA+OCC BLD SCRN STL-IMP Negative Negative 07/25/2023 6:26 PM EDT [facility] (CLIA #:[id number]) Comment: NEGATIVE TEST RESULT. A negative Cologuard [...] (Jo-Ann Jasso al, N Engl J Med 2014;370(14):9989-7018) The normal value (reference range) for this assay is negative. COLOGUARD RE-SCREENING RECOMMENDATION: Periodic colorectal cancer screening is an important part of preventive healthcare for asymptomatic individuals at average risk for colorectal cancer. Following a negative Cologuard result, the [place] Cancer Society and U.S. Multi-Society Task Force screening guidelines recommend a Cologuard re-screening interval of 3 years. References: [place] Cancer Society Guideline for Colorectal Cancer Screening: https://www.cancer.org/cancer/leavx-ibtrph-tmwihb/yaepjymms-wxnguamnk-ledqgop/ac s-rec ommendations.html.; Ez BUSTAMANTE, Marla PORTILLO, Jessica BASILIO, Colorectal Cancer Screening: Recommendations for Physicians and Patients from the U.S. Multi-Society Task Force on Colorectal Cancer Screening , Am J Gastroenterology 2017; 112:3800-7435. TEST DESCRIPTION: Composite algorithmic analysis of stool [...] Puentes et al, N Engl J Med 2014;370(14):8291-3623.) Cologuard may produce a false negative or false positive result (no colorectal cancer or precancerous polyp present at colonoscopy follow up). A negative Cologuard test result does not guarantee the absence of CRC or advanced adenoma (pre-cancer). The current Cologuard screening interval is every 3 years. ([place] Cancer Society and U.S. Multi-Society Task Force). Cologuard performance data in a 10,000 patient pivotal study using colonoscopy as the reference method can be accessed at the following location: www.Merku.com/results. Additional description of the Cologuard test process, warnings and precautions can be found at www.cologPaybookrd.com. Stool specimen (specimen) 07/17/2023 7:30 PM EDT 07/19/2023 4:57 PM EDT Blu Kothari MD LAB MOLECULAR DIAGNOSTICS [place] [facility]AFER Final Result .[facility] (CLIA #:[id number]) [address] [address], [facility] (CLIA #:[id number]) [address] [place] [address] from Last 3 Months or Most Recently Relevant to Health Maintenance Insurance [employer] Care Teams Marketing Designer Relationship Specialty Start Date End Date Blu Kothari MD [address] [place] [address] PCP - General Internal Medicine 04/01/23
--- OUTSIDE RECORDS SUMMARY | 2025-06-22 08:17 | XMS_ITS | Encounter Summary ---
Author Organization [facility] Address [address] [facility] [place] [address] Care Team Providers Care Opal Miner Name Role Phone Blu Kothari MD Primary Care Provider [phone] Blu Kothari MD Unavailable [phone] Encounter Details Date Type Department Care Team (Late st Contact Info) Description 03/18/2025 External Result Encounter [facility] External Department Unsolicited Blu Kothari MD 112 [facility] [address] [place], [place] [id number] Social History Tobacco Use Types Packs/Day Years [...] as of this encounter Plan of Treatment Upcoming Encounters Date Type Department Care Team (Late st Contact Info) Description 08/12/2025 9:00 AM EDT Office Visit [facility] [place] [facility] [address] [facility] [address] [place] [address] Blu Kothari MD [address] [facility] [address] [place], [place] [phone] documented as of this encounter Procedures Procedure Name Priority Date/Time Associated Diagnosis Comments MR LUMBAR SPINE WO CONTRAST 03/18/2025 3:09 PM EDT documented in this encounter Results * MR lumbar spine wo contrast (03/18/2025 3:09 PM EDT) Anatomical Region Laterality Modality Spine, L-spine Magnetic Resonan ce 03/18/2025 3:09 PM EDT Impressions 03/18/2025 3:51 PM EDT Clml-hd-krwmrxma multilevel degenerative changes without high-grade canal or neural foraminal narrowing. Moderate left neural foraminal narrowing at L5-S1 Impression dictated by: Ever Odonnell M.D. 03/18/2025 3:49 PM Dictation Location: [facility]-- Transcribed By: [facility] 03/18/25 1549 Dictated By: Ever Odonnell MD 03/18/25 1509 Signed By: <Electronically signed by Ever Odonnell MD in OV> 03/18/25 1549 Narrative 03/18/2025 3:51 PM EDT [facility] [place] [address] MRI Report Signed Patient: Patricia Gonzalez MR#: [id number] : 1955 Acct:[id number] Age/Sex: 69 / F ADM Date: 03/18/25 Loc: Room: Type: [facility] Attending Dr: Blu Kothari II, MD [...] narrowing identified. L2-3: Broad-based disc bulge with oqpk-kz-rzqdvhwk facet arthropathy. Minimal foraminal narrowing. Canal is [...] con Procedure Note Radiology, Radiologist, - 03/18/2025 [facility] Main [place] [address] [place] [address] MRI Report Signed Patient: Naren Gonzalez#: [id number] : 5Acct:[id number] Age/Sex: 69 / FADM Date: 03/18/25 Loc: Room:Type: [facility] Attending Dr: Blu Kothari II, MD [...] narrowing identified. L2-3: Broad-based disc bulge with iuuq-oq-apouhjer facet arthropathy.Minimal foraminal narrowing. Canal is patent. L3-L4: Circumferential disc bulge with moderate facet arthropathy. Mildneural foraminal narrowing. Minimal central canal stenosis. L4-5: Disc desiccation. Moderate disc facet arthropathy. No significantcentral canal or neural from narrowing identified. L5-S1: Circumferential disc bulge with moderate facet arthropathy.Moderate right moderate left neural foraminal narrowing. MR/MR lumbar spine wo con IMPRESSION: Bipn-ma-wtgsjspy multilevel degenerative changes without high-grade canalor neural foraminal narrowing. Moderate left neural foraminal narrowing at L5-S1 Impression dictated by: Ever Odonnell M.D. 03/18/2025 3:49 PM Dictation Location: [place] [address] Transcribed By: [facility] 03/18/25 1549 Dictated By: Ever [...] documented as of this encounter Care Teams Opal Miner Relationship Specialty Start Date End Date Blu Kothari MD [address] [place] [address] PCP - General Internal Medicine 04/01/23 Blu Kothari MD [address] [place] [address] PCP - ACO Reach 12/31/24 04/26/25 documented as of this encounter
--- OUTSIDE RECORDS SUMMARY | 2025-06-22 08:17 | XMS_ITS | Encounter Summary ---
Author Organization [facility] Address [address] [facility] [place] [address] Care Team Providers Care Closed Circuit Screen Watcher Name Role Phone Blu Kothari MD Primary Care Provider [phone] Blu Kothari MD Unavailable [phone] Encounter Details Date Type Department Care Team (Late Contact Info) Description 08/23/2024 Abstract [facility] [place] [address] [facility] 110 [place] [address] Blu Kothari MD [address] [facility] 110 [place] [address] Social History Tobacco Use Types Packs/Day Years [...] 08/12/2025 9:00 AM EDT Office Visit [facility] [place] [address] [facility] 110 [place] [address] Blu Kothari MD [address] [facility] [address] [place] [address] documented as of this encounter Visit Diagnoses Not on filedocumented in this encounter Additional Health Concerns Assessment Noted Time PHQ-9 Depression Total Score: 0 08/20/20 24 8:00 AM EDT documented as of this encounter Care Teams Closed Circuit Screen Watcher Relationship Specialty Start Date End Date Blu Kothari MD [address] [place] [facility] 110 [place] [address] PCP - General Internal Medicine 04/01/23 Blu Kothari MD [address] [place] [facility] 110 [place] [address] PCP - ACO Reach 12/31/24 04/26/25 documented as of this encounter
--- OUTSIDE RECORDS SUMMARY | 2025-06-22 08:18 | XMS_ITS | Encounter Summary ---
Author Organization [facility] Address [address] [facility] [place] [address] Care Team Providers Care Keycase Assembler Name Role Phone Blu Kothari MD Primary Care Provider [phone] Blu Kothari MD Unavailable [phone] Encounter Details Date Type Department Care Team (Late st Contact Info) Description 08/15/2023 Clinisync Result Encounter [facility] External Department Unsolicited Blu Kothari MD 112 [facility] 110 [place], [place] [id number] Social History Tobacco Use Types Packs/Day Years [...] 9:00 AM EDT Office Visit [facility] [place] [address] [facility] 110 [place] [address] Blu Kothari MD [address] [facility] [address] [place], [place] [address] documented as of this encounter Procedures Procedure Name Priority Date/Time Associated Diagnosis Comments XR DEXA AXIAL SKELETON 08/15/2023 9:47 AM EDT documented in this encounter Results * XR DEXA AXIAL SKELETON (08/15/2023 9:47 AM EDT) Anatomical Region Laterality Modality Other 08/15/2023 9:47 AM EDT Narrative 08/15/2023 9:47 AM EDT [address] [address] XRay Report Signed Patient: Miguel Gonzalez MR#: [id number] : 1955 Acct:[id number] Age/Sex: 68 / F ADM Date: 08/15/23 Loc: RAD Attending Dr: BLU KOTHARI Ordering Physician: BLU KOTHARI Date of Service: 08/15/23 Procedure(s): XR DEXA axial skeleton Accession Number(s): [id number] cc: BLU KOTHARI [place] [id number] Patient Name: MIGUEL GONZALEZ MRN: [id number] date: 1955 Sex: F Assigned Patient Location: [facility] Current Patient Location: [facility] Accession/Order Number: [id number] Exam Date: 08/15/2023 08:32 Report Date: 08/15/2023 [...] - High Fracture Risk Electronically authenticated by: KYLE OCONNELL Date: 08/15/2023 09:47 Dictated By: Kyle Oconnell M.D. Signed By: 08/15/23948 DD/ 6 TD/TT: Bench Repair Technician: Procedure Note Radiology, Radiologist, MD - 08/15/[address] [address] XRay Report Signed Patient: Miguel Gonzalez LMR#: [id number] : 5Acct:[id number] Age/Sex: 68 / FADM Date: 08/15/23 Loc: RAD Attending Dr: BLU KOTHARI Ordering Physician: BLU KOTHARI Date of Service: 08/15/23 Procedure(s): XR DEXA axial skeleton Accession Number(s): [id number] cc: BLU KOTHARI [place] [id number] Patient Name: MIGUEL GONZALEZ MRN: [id number] date: 1955 Sex: F Assigned Patient Location: [facility] Current Patient Location: [facility] Accession/Order Number: [id number] Exam Date: 08/15/2023 08:32 Report Date: 08/15/2023 [...] - High Fracture Risk Electronically authenticated by: KYLE OCONNELL Date: 08/15/2023 09:47 Dictated By: Kyle Oconnell M.D. Signed By:08/15/23948 DD/ 6 TD/TT: Bench Repair Technician: Blu Kothari MD [facility] Final Result documented in this encounter Visit Diagnoses Not on filedocumented in this encounter Care Teams Keycase Assembler Relationship Specialty Start Date End Date Blu Kothari MD [address] [facility] 110 [place] [address] PCP - General Internal Medicine 04/01/23 Blu Kothari MD [address] [facility] 110 [place] [address] PCP - ACO Reach 12/31/24 04/26/25 documented as of this encounter
--- OUTSIDE RECORDS SUMMARY | 2025-06-22 08:18 | XMS_ITS | Encounter Summary ---
Author Organization [facility] Address [address] [facility] [place] [address] Care Team Providers Care Foundation Stage Teacher Name Role Phone Blu Kothari MD Primary Care Provider [phone] Blu Kothari MD Unavailable [phone] Encounter Details Date Type Department Care Team (Late Contact Info) Description 12/11/2023 Abstract [facility] [place] [address] [facility] 110 [place] [address] Blu Kothari MD [address] [facility] 110 [place] [address] Social History Tobacco Use Types Packs/Day Years [...] Visit [facility] [place] [address] [facility] [address] [place] [phone] Blu Kothari MD [address] [facility] 110 [place] [address] documented as of this encounter Visit Diagnoses Not on filedocumented in this encounter Care Teams Foundation Stage Teacher Relationship Specialty Start Date End Date Blu Kothari MD [address] [facility] 110 [place] [address] PCP - General Internal Medicine 04/01/23 Blu Kothari MD [address] [facility] 110 [place] [address] PCP - ACO Reach 12/31/24 04/26/25 documented as of this encounter
--- OUTSIDE RECORDS SUMMARY | 2025-06-22 08:18 | XMS_ITS | Encounter Summary ---
Author Organization [facility] Address [address] [facility] [place] [address] Care Team Providers Care Pantograph Ii Engraver Name Role Phone Blu Kothari MD Primary Care Provider [phone] Blu Kothari MD Unavailable [phone] Encounter Details Date Type Department Care Team (Late st Contact Info) Description 12/29/2023 Orders Only [facility] [place] [address] [place] [address] [place] [address] A, Unknown Practice [address] [place], [place] [address] Social History Tobacco Use Types Packs/Day Years [...] Visit [facility] [place] [address] [place] [address] [place] [address] Blu Kothari MD [address] [place] [address] [place] [phone] documented as of this encounter Procedures Procedure Name Priority Date/Time Associated Diagnosis Comments X-RAY : SPINE, THORACIC Routine 12/26/2023 2:22 PM EST XR THORACIC SPINE 3 VIEWS Routine 12/26/2023 9:03 AM EST documented in this encounter Results * X-RAY : SPINE, THORACIC (12/26/2023 2:22 PM EST) Anatomical Region Laterality Modality Radiographic Savana ging us Noms Provider Unallocated IMG XR PROCEDURES F inal Result * XR thoracic spine 3 views (12/26/2023 9:03 AM EST) Anatomical Region Laterality Modality Spine, T-spine Radiographic Savana ging us Unknown Practice A IMG XR PROCEDURES Final Resul t documented in this encounter Visit Diagnoses Not on filedocumented in this encounter Care Teams Pantograph Ii Engraver Relationship Specialty Start Date End Date Blu Kothari MD [address] [address] [place] [address] PCP - General Internal Medicine 04/01/23 Blu Kothari MD [address] [place] [address] PCP - ACO Reach 12/31/24 04/26/25 documented as of this encounter
--- OUTSIDE RECORDS SUMMARY | 2025-06-22 08:18 | XMS_ITS | Encounter Summary ---
Author Organization [facility] Address [address] [facility] [place] [address] Care Team Providers Care Radiology Manager Name Role Phone Blu Kothari MD Primary Care Provider [phone] Blu Kothari MD Unavailable [phone] Encounter Details Date Type Department Care Team (Late Contact Info) Description 08/18/2023 Orders Only [facility] [place] Beltran [address] [place] 110 [place] [address] A, Unknown Practice [address] [place], [place] [address] Social History Tobacco Use Types Packs/Day Years [...] Beltran [address] [place] [address] [place] [address] Blu Kothari MD [address] [place] [address] [place] [id number] documented as of this encounter Procedures Procedure [...] on filedocumented in this encounter Care Teams Radiology Manager Relationship Specialty Start Date End Date Blu Kothari MD [address] [facility] 110 [place] [address] PCP - General Internal Medicine 04/01/23 Blu Kothari MD [address] [facility] 110 [place] [address] PCP - ACO Reach 12/31/24 04/26/25 documented as of this encounter
--- OUTSIDE RECORDS SUMMARY | 2025-06-22 08:18 | XMS_ITS | Encounter Summary ---
Author Organization [facility] Address [address] [facility] [place] [address] Care Team Providers Care Brine Well Operator Name Role Phone Blu Kothari MD Primary Care Provider [phone] Blu Kothari MD Unavailable [phone] Encounter Details Date Type Department Care Team (Late Contact Info) Description 12/26/2023 Clinisync Result Encounter [...] 9:00 AM EDT Office Visit [facility] [place] [facility] [address] [place] 110 [place] [address] Blu Kothari MD [address] [facility] 110 [place] [address] documented as of this encounter Procedures Procedure Name Priority Date/Time Associated Diagnosis Comments XR THORACIC SPINE 3V 12/26/2023 11:01 AM EST documented in this encounter Results * XR THORACIC SPINE 3V (12/26/2023 11:01 AM EST) Anatomical Region Laterality Modality Other 12/26/2023 11:0 1 AM EST Narrative 12/26/2023 11:04 [place] [address] XRay Report Signed Patient: MIGUEL GONZALEZ MR#: [id number] : 1955 Acct:[id number] Age/Sex: 68 / F ADM Date: 12/26/23 Loc: RAD Attending Dr: Arline Giordano LITHOSTRIPPER Ordering Physician: Arline Giordano NP Date of Service: 12/26/23 Procedure(s): XR thoracic spine 3V Accession Number(s): [id number] cc: BLU KOTHARI ; Arline Giordano NP [place] [address] Patient Name: MIGUEL GONZALEZ MRN: [id number] date: 1955 Sex: F Assigned Patient Location: [facility] Current Patient Location: [facility] Accession/Order Number: [id number] Exam Date: 12/26/2023 10:18 Report Date: 12/26/2023 11:01 At the request of: ARLINE GIORDANO Procedure: XR thoracic spine 3V EXAMINATION: [...] No acute bone abnormality. Electronically authenticated by: KYLE OCONNELL Date: 12/26/2023 11:01 Dictated By: Kyle Oconnell M.D. Signed By: 12/26/23 1104 DD/ 1101 TD/TT: Rehab Manager: Procedure Note Radiology, Radiologist, MD - 12/29/2023 [place] [address] XRay Report Signed Patient: MIGUEL GONZALEZ LMR#: [id number] : 5Acct:[id number] Age/Sex: 68 / FADM Date: 12/26/23 Loc: RAD Attending Dr: Arline Giordano LITHOSTRIPPER Ordering Physician: Arline Giordano NP Date of Service: 12/26/23 Procedure(s): XR thoracic spine 3V Accession Number(s): [id number] cc: BLU KOTHARI ; Arline Giordano NP [facility] [place] [id number] Patient Name: MIGUEL GONZALEZ MRN: [id number] date: 1955 Sex: F Assigned Patient Location: [facility] Current Patient Location: [facility] Accession/Order Number: [id number] Exam Date: 12/26/2023 10:18 Report Date: 12/26/2023 11:01 At the request of: ARLINE GIORDANO Procedure: XR thoracic spine 3V EXAMINATION: [...] No acute bone abnormality. Electronically authenticated by: KYLE OCONNELL Date: 12/26/2023 11:01 Dictated By: Kyle Oconnell M.D. Signed By:12/26/23 1104 DD/ 1101 TD/TT: Rehab Manager: us Generic External Data Provider [facility] Final Result documented in this encounter Visit Diagnoses Not on filedocumented in this encounter Care Teams Brine Well Operator Relationship Specialty Start Date End Date Blu Kothari MD [address] [facility] 110 [place] [address] PCP - General Internal Medicine 04/01/23 Blu Kothari MD [address] [facility] 110 [place] [address] PCP - ACO Reach 12/31/24 04/26/25 documented as of this encounter
--- OUTSIDE RECORDS SUMMARY | 2025-06-22 08:18 | XMS_ITS | Encounter Summary ---
Author Organization [facility] Address [address] [facility] [place] [address] Care Team Providers Care Sales And Service Technician Name Role Phone Blu Kothari MD Primary Care Provider [phone] Blu Kothari MD Unavailable [phone] Encounter Details Date Type Department Care Team (Late Contact Info) Description 11/05/2023 Orders Only [facility] [place] Beltran [address] [place] [address] [place] [address] A, Unknown Practice [address] [place], [place] [address] Social History Tobacco Use Types Packs/Day Years [...] Beltran [address] [place] [address] [place] [address] Blu Kothari MD [address] [place] [address] [place] [id number] documented as of this encounter Procedures Procedure Name Priority Date/Time Associated Diagnosis Comments ELECTROCARDIOGRAM REPORT Routine 023 8:12 AM EST documented in this encounter Results * Electrocardiogram Report (11/04/2023 8:12 AM EST) us Unknown Practice A IN CLINIC/BEDSIDE ORDERABLES Final Result documented in this encounter Visit Diagnoses Not on filedocumented in this encounter Care Teams Sales And Service Technician Relationship Specialty Start Date End Date Blu Kothari MD 112 [facility] 110 [place] [address] PCP - General Internal Medicine 04/01/23 Blu Kothari MD 112 [facility] 110 [place] [address] PCP - ACO Reach 12/31/24 04/26/25 documented as of this encounter
--- OUTSIDE RECORDS SUMMARY | 2025-06-22 08:18 | XMS_ITS | Encounter Summary ---
Author Organization [facility] Address [address] [facility] [place] [address] Care Team Providers Care Owner Operator Tanker Truck Driver Name Role Phone Blu Kothari MD Primary Care Provider [phone] Blu Kothari MD Unavailable [phone] Encounter Details Date Type Department Care Team (Late Contact Info) Description 12/03/2023 Abstract [facility] [place] Beltran [address] [facility] 110 [place] [address] Blu Kothari MD [address] [facility] 110 [place] [address] Social History Tobacco Use Types Packs/Day Years [...] Visit [facility]S [place] Beltran [address] [facility] 110 [place] [address] Blu Kothari MD [address] [facility] 110 [place] [address] documented as of this encounter Visit Diagnoses Not on filedocumented in this encounter Care Teams Owner Operator Tanker Truck Driver Relationship Specialty Start Date End Date Blu Kothari MD [address] [facility] 110 [place] [address] PCP - General Internal Medicine 04/01/23 Blu Kothari MD [address] [facility] 110 [place] [address] PCP - ACO Reach 12/31/24 04/26/25 documented as of this encounter
--- OUTSIDE RECORDS SUMMARY | 2025-06-22 08:18 | XMS_ITS | Encounter Summary ---
Author Organization [facility] Address [address] [facility] [place] [address] Care Team Providers Care Assistant Community Director Name Role Phone Blu Kothari MD Primary Care Provider [phone] Blu Kothari MD Unavailable [phone] Encounter Details Date Type Department Care Team (Late Contact Info) Description 11/10/2023 Abstract [facility] [place] Beltran [address] [facility] 110 [place] [address] Blu Kothari MD [address] [facility] 110 [place] [address] Social History Tobacco Use Types Packs/Day Years [...] Visit [facility] [place] Beltran [address] [facility] 110 [place] [address] Blu Kothari MD [address] [facility] 110 [place] [address] documented as of this encounter Visit Diagnoses Not on filedocumented in this encounter Care Teams Assistant Community Director Relationship Specialty Start Date End Date Blu Kothari MD [address] [facility] 110 [place] [address] PCP - General Internal Medicine 04/01/23 Blu Kothari MD [address] [facility] 110 [place] [address] PCP - ACO Reach 12/31/24 04/26/25 documented as of this encounter
--- OUTSIDE RECORDS SUMMARY | 2025-06-22 08:18 | XMS_ITS | Encounter Summary ---
Author Organization [facility] Address [address] [facility] [place] [address] Care Team Providers Care Proof Operator Name Role Phone Blu Kothari MD Primary Care Provider [phone] Blu Kothari MD Unavailable [phone] Encounter Details Date Type Department Care Team (Late Contact Info) Description 11/04/2023 Abstract [facility] [place] Beltran [address] [facility] 110 [place] [address] Blu Kothari MD [address] [facility] 110 [place] [address] Social History Tobacco Use Types Packs/Day Years [...] Visit [facility] [place] Beltran [address] [facility] 110 [place] [address] Blu Kothari MD [address] [facility] 110 [place] [address] documented as of this encounter Visit Diagnoses Not on filedocumented in this encounter Care Teams Proof Operator Relationship Specialty Start Date End Date Blu Kothari MD [address] [facility] 110 [place] [address] PCP - General Internal Medicine 04/01/23 Blu Kothari MD [address] [facility] 110 [place] [address] PCP - ACO Reach 12/31/24 04/26/25 documented as of this encounter
--- OUTSIDE RECORDS SUMMARY | 2025-06-22 08:18 | XMS_ITS | Encounter Summary ---
Author Organization [facility] Address [address] [facility] [place] [address] Care Team Providers Care Computer Network Engineer Name Role Phone Blu Kothari MD Primary Care Provider [phone] Blu Kothari MD Unavailable [phone] Encounter Details Date Type Department Care Team (Late Contact Info) Description 02/23/2024 Abstract [facility] [place] Beltran [address] [facility] 110 [place] [address] Blu Kothari MD [address] [facility] 110 [place] [address] Social History Tobacco Use Types Packs/Day Years [...] Visit [facility]S [place] Beltran [address] [facility] 110 [place] [address] Blu Kothari MD [address] [facility] 110 [place] [address] documented as of this encounter Visit Diagnoses Not on filedocumented in this encounter Care Teams Computer Network Engineer Relationship Specialty Start Date End Date Blu Kothari MD [address] [facility] 110 [place] [address] PCP - General Internal Medicine 04/01/23 Blu Kothari MD [address] [facility] 110 [place] [address] PCP - ACO Reach 12/31/24 04/26/25 documented as of this encounter
--- OUTSIDE RECORDS SUMMARY | 2025-06-22 08:18 | XMS_ITS | Encounter Summary ---
Author Organization [facility] Address [address] [facility] [place] [address] Care Team Providers Care Spinner Continuous Name Role Phone Blu Kothari MD Primary Care Provider [phone] Blu Kothari MD Unavailable [phone] Encounter Details Date Type Department Care Team (Late Contact Info) Description 09/01/2023 Abstract [facility] [place] Beltran [address] [facility] 110 [place] [address] Blu Kothari MD [address] [facility] 110 [place] [address] Social History Tobacco Use Types Packs/Day Years [...] Visit N[facility]S [place] Beltran [address] [facility] 110 [place] [address] Blu Kothari MD [address] [facility] 110 [place] [address] documented as of this encounter Visit Diagnoses Not on filedocumented in this encounter Care Teams Spinner Continuous Relationship Specialty Start Date End Date Blu Kothari MD [address] [facility] 110 [place] [address] PCP - General Internal Medicine 04/01/23 Blu Kothari MD [address] [facility] 110 [place] [address] PCP - ACO Reach 12/31/24 04/26/25 documented as of this encounter
--- OUTSIDE RECORDS SUMMARY | 2025-06-22 08:18 | XMS_ITS | Encounter Summary ---
Author Organization [facility] Address [address] [facility] [place] [address] Care Team Providers Care Blacktop Spreader Name Role Phone Blu Kothari MD Primary Care Provider [phone] Blu Kothari MD Unavailable [phone] Encounter Details Date Type Department Care Team (Late Contact Info) Description 09/11/2023 Abstract [facility] [place] Beltran [address] [place] 110 [place] [address] Blu Kothari MD [address] [facility] 110 [place] [address] Social History Tobacco Use Types Packs/Day Years [...] Visit N[facility]S [place] Beltran [address] [place] 110 [place] [address] Blu Kothari MD [address] [facility] 110 [place] [address] documented as of this encounter Visit Diagnoses Not on filedocumented in this encounter Care Teams Blacktop Spreader Relationship Specialty Start Date End Date Blu Kothari MD [address] [facility] 110 [place] [address] PCP - General Internal Medicine 04/01/23 Blu Kothari MD [address] [facility] 110 [place] [address] PCP - ACO Reach 12/31/24 04/26/25 documented as of this encounter
--- OUTSIDE RECORDS SUMMARY | 2025-06-22 08:19 | XMS_ITS | Encounter Summary ---
Author Organization [facility] Address [address] [facility] [place] [address] Care Team Providers Care Folder And Notcher Name Role Phone Blu Kothari MD Primary Care Provider [phone] Blu Kothari MD Unavailable [phone] Encounter Details Date Type Department Care Team (Late Contact Info) Description 07/15/2023 Abstract [facility] [place] Beltran 112 [facility] 110 [place] [address] Blu Kothari MD [address] [facility] 110 [place] [address] Social History Tobacco Use Types Packs/Day Years [...] Office Visit [facility]S [place] Beltran [address] [facility] 110 [place] [address] Blu Kothari MD [address] [facility] 110 [place] [address] documented as of this encounter Visit Diagnoses Not on filedocumented in this encounter Care Teams Folder And Notcher Relationship Specialty Start Date End Date Blu Kothari MD [address] [facility] 110 [place] [address] PCP - General Internal Medicine 04/01/23 Blu Kothari MD [address] [facility] 110 [place] [address] PCP - ACO Reach 12/31/24 04/26/25 documented as of this encounter
--- OUTSIDE RECORDS SUMMARY | 2025-06-22 08:19 | XMS_ITS | Encounter Summary ---
Author Organization [facility] Address [address] [place] [address] Care Team Providers Care Building Illuminating Engineer Name Role Phone Blu Kothari MD Primary Care Provider [phone] Blu Kothari MD Unavailable [phone] Encounter Details Date Type Department Care Team (Late Contact Info) Description 07/04/2023 Abstract [facility] [place] Beltran 112 [facility] 110 [place] [address] Blu Kothari MD [address] [facility] 110 [place] [address] Social History Tobacco Use Types Packs/Day Years [...] EDT Office Visit [facility] [place] Beltran 112 [facility] 110 [place] [address] Blu Kothari MD 112 [facility] 110 [place] [address] documented as of this encounter Visit Diagnoses Not on filedocumented in this encounter Care Teams Building Illuminating Engineer Relationship Specialty Start Date End Date Blu Kothari MD [address] [facility] 110 [place] [address] PCP - General Internal Medicine 04/01/23 Blu Kothari MD [address] [facility] 110 [place] [address] PCP - ACO Reach 12/31/24 04/26/25 documented as of this encounter
--- OUTSIDE RECORDS SUMMARY | 2025-06-22 08:19 | XMS_ITS | Encounter Summary ---
Author Organization [facility] Address [address] [place] [address] Care Team Providers Care Denture Laboratory Technician Name Role Phone Blu Kothari MD Primary Care Provider [phone] Blu Kothari MD Unavailable [phone] Encounter Details Date Type Department Care Team (Late Contact Info) Description 10/09/2023 Abstract [facility] [place] Beltran [address] [facility] 110 [place] [address] Blu Kothari MD [address] [facility] 110 [place] [address] Social History Tobacco Use Types Packs/Day Years [...] Visit NOMS [place] Beltran [address] [facility] 110 [place] [address] Blu Kothari MD [address] [facility] 110 [place] [address] documented as of this encounter Visit Diagnoses Not on filedocumented in this encounter Care Teams Denture Laboratory Technician Relationship Specialty Start Date End Date Blu Kothari MD [address] [facility] 110 [place] [address] PCP - General Internal Medicine 04/01/23 Blu Kothari MD [address] [facility] 110 [place] [address] PCP - ACO Reach 12/31/24 04/26/25 documented as of this encounter
--- OUTSIDE RECORDS SUMMARY | 2025-06-22 08:19 | XMS_ITS | Clinical Summary ---
Author Organization [employer] Address [id number] [address] [place] [address] Care Team Providers Care Board Of Education Secretary Name Role Phone Blu Kothari MD Primary Care Provider [phone] Allergies No known active allergies Medications rosuvastatin [...] Take 400 Units by mouth daily. Active nowqtypy-zmsc-E A-calcium &mins (THERAGRAN-M) 9 mg iron-400 mcg tablet Take 1 tablet by mouth daily. Active omega 3-zko-tjs-fish oil (FISH OIL) 300-1,000 mg capsule Take [...] Devices Not on file Insurance [employer] [address] Care Teams Board Of Education Secretary Relationship Specialty Start Date End Date Blu Kothari MD 112 [facility] 110 [place] [address] PCP - General Internal Medicine 06/09/20
--- OUTSIDE RECORDS SUMMARY | 2025-06-22 08:19 | XMS_ITS | Encounter Summary ---
Author Organization [facility] Address [address] [facility] [place] [address] Care Team Providers Care Tourist Home Keeper Name Role Phone Blu Kothari MD Primary Care Provider [phone] Blu Kothari MD Unavailable [phone] Encounter Details Date Type Department Care Team (Late Contact Info) Description 08/04/2023 Abstract [facility] [place] Beltran [address] [facility] 110 [place] [address] Blu Kothari MD [address] [facility] 110 [place] [address] Social History Tobacco Use Types Packs/Day Years [...] [facility] 110 [place] [address] Blu Kothari MD [address] [facility] 110 [place] [address] documented as of this encounter Visit Diagnoses Not on filedocumented in this encounter Care Teams Tourist Home Keeper Relationship Specialty Start Date End Date Blu Kothari MD [address] [facility] 110 [place] [address] PCP - General Internal Medicine 04/01/23 Blu Kothari MD [address] [facility] 110 [place] [address] PCP - ACO Reach 12/31/24 04/26/25 documented as of this encounter
--- OUTSIDE RECORDS SUMMARY | 2025-06-22 08:19 | XMS_ITS | Encounter Summary ---
Author Organization [facility] Address [address] [place] [address] Care Team Providers Care Financial Risk Manager Name Role Phone Blu Kothari MD Primary Care Provider [phone] Blu Kothari MD Unavailable [phone] Encounter Details Date Type Department Care Team (Late Contact Info) Description 08/09/2023 Clinisync Result Encounter [...] Family Medince [address] [place] [address] [place] [address] Blu Kothari MD [address] [facility] 110 [place] [address] documented as of this encounter Procedures Procedure Name Priority Date/Time Associated Diagnosis Comments XR LUMBAR SPINE 6V W BENDING 08/09/2023 6:58 AM EDT documented in this encounter Results * XR LUMBAR SPINE 6V W BENDING (08/09/2023 6:58 AM EDT) Anatomical Region Laterality Modality Other 08/09/2023 6:58 AM EDT Narrative 08/09/2023 6:58 AM EDT [place] [id number] XRay Report Signed Patient: Miguel Gonzalez MR#: [id number] : 1955 Acct:[id number] Age/Sex: 68 / F ADM Date: 08/08/23 Loc: RAD Attending Dr: Non-Staff Physician Lauren Ordering Physician: Physician,Non-Staff Lauren Date of Service: 08/08/23 Procedure(s): XR lumbar spine 6V w bending Accession Number(s): [id number] cc: BLU KOTHARI ; Physician,Non-Staff Lauren [place] [address] Patient Name: MIGUEL GONZALEZ MRN: [id number] date: 1955 Sex: F Assigned Patient Location: [facility] Current Patient Location: Accession/Order Number: [id number] Exam Date: 08/08/2023 09:03 Report Date: 08/09/2023 [...] Jimenez M.D. Signed By: 08/09/23 0701 DD/ TD/TT: Exercise Science Instructor: Procedure Note Radiology, Radiologist, MD - 08/15/2023 The [place] [id number] XRay Report Signed Patient: Miguel Gonzalez LMR#: [id number] : 5Acct:[id number] Age/Sex: 68 / FADM Date: 08/08/23 Loc: [facility] Attending Dr: Non-Staff Physician Lauren Ordering Physician: PhysicianNon-Staff Lauren Date of Service: 08/08/23 Procedure(s): XR lumbar spine 6V w bending Accession Number(s): [id number] cc: BLU KOTHARI ; Physician,VianneyStaff Lauren [place] [address] Patient Name: MIGUEL GONZALEZ MRN: [id number] date: 1955 Sex: F Assigned Patient Location: [facility] Current Patient Location: Accession/Order Number: [id number] Exam Date: 08/08/2023 09:03 Report Date: 08/09/2023 [...] M.D. Signed By:08/09/23 0701 DD/ 0658 TD/TT: Exercise Science Instructor: Generic External Data Provider [facility] Final Result documented in this encounter Visit Diagnoses Not on filedocumented in this encounter Care Teams Financial Risk Manager Relationship Specialty Start Date End Date Blu Kothari MD [address] [facility] 110 [place] [address] PCP - General Internal Medicine 04/01/23 Blu Kothari MD [address] [facility] 110 [place], [place] [address] PCP - ACO Reach 12/31/24 04/26/25 documented as of this encounter
--- OUTSIDE RECORDS SUMMARY | 2025-06-22 08:19 | XMS_ITS | Encounter Summary ---
Author Organization [facility] Address [address] [facility] [place] [address] Care Team Providers Care Adult Protective Caseworker Name Role Phone Blu Kothari MD Primary Care Provider [phone] Blu Kothari MD Unavailable [phone] Encounter Details Date Type Department Care Team (Late Contact Info) Description 11/04/2023 Abstract [facility] Cathie Beltran [address] [facility] [address] [place] [address] Blu Kothari MD [address] [facility] [address] [place] [address] Social History Tobacco Use Types Packs/Day Years [...] Visit [facility] Cathie Beltran [address] [facility] [address] [place] [id number] Blu Kothari MD [address] [facility] [address] [place] [address] documented as of this encounter Visit Diagnoses Not on filedocumented in this encounter Care Teams Adult Protective Caseworker Relationship Specialty Start Date End Date Blu Kothari MD [address] [facility] [address] [place] [address] PCP - General Internal Medicine 04/01/23 Blu Kothari MD [address] [facility] [address] [place] [address] PCP - ACO Reach 12/31/24 04/26/25 documented as of this encounter
--- OUTSIDE RECORDS SUMMARY | 2025-06-22 08:19 | XMS_ITS | Encounter Summary ---
Author Organization [facility] Address [address] [facility] [place] [address] Care Team Providers Care Food Services Coordinator Name Role Phone Blu Kothari MD Primary Care Provider [phone] Blu Kothari MD Unavailable [phone] Encounter Details Date Type Department Care Team (Late Contact Info) Description 08/04/2023 Abstract [facility] Cathie Beltran [address] [facility] [address] [place] [address] Blu Kothari MD [address] [facility] [address] [place] [address] Social History Tobacco Use Types Packs/Day Years [...] Visit [facility] Cathie Beltran [address] [facility] [address] [place] [phone] Blu Kothari MD [address] [facility] [address] [place] [address] documented as of this encounter Visit Diagnoses Not on filedocumented in this encounter Care Teams Food Services Coordinator Relationship Specialty Start Date End Date Blu Kothari MD [address] [facility] [address] [place] [address] PCP - General Internal Medicine 04/01/23 Blu Kothari MD [address] [facility] [address] [place] [address] PCP - ACO Reach 12/31/24 04/26/25 documented as of this encounter
--- OUTSIDE RECORDS SUMMARY | 2025-06-22 08:19 | XMS_ITS | Encounter Summary ---
Author Organization [facility] Address [address] [facility] [place] [address] Care Team Providers Care Laborer Shellfish Processing Name Role Phone Blu Kothari MD Primary Care Provider [phone] Blu Kothari MD Unavailable [phone] Encounter Details Date Type Department Care Team (Late Contact Info) Description 09/29/2023 Abstract [facility] Cathie Beltran [address] [facility] [address] [place] [address] Blu Kothari MD [address] [facility] [address] [place] [address] Social History Tobacco Use Types Packs/Day Years [...] Visit [facility] Cathie Beltran [address] [facility] [address] [place] [phone] Blu Kothari MD [address] [facility] [address] [place] [address] documented as of this encounter Visit Diagnoses Not on filedocumented in this encounter Care Teams Laborer Shellfish Processing Relationship Specialty Start Date End Date Blu Kothari MD [address] [facility] [address] [place] [address] PCP - General Internal Medicine 04/01/23 Blu Kothari MD [address] [facility] [address] [place] [address] PCP - ACO Reach 12/31/24 04/26/25 documented as of this encounter
--- OUTSIDE RECORDS SUMMARY | 2025-06-22 08:31 | XMS_ITS | CCD ---
Author Organization [facility] Team Providers Care Gluing Machine Operator Name Role Phone BLU KOTHARI Attending BLU Champagne Consulting BLU Champagne Primary Care Unavailable BLU KOTHARI Admitting Blu Champagne MD Primary Care Provider [phone] Blu Kothari MD Unavailable Blu Kothari II Primary Care Provider Blu Kothari II Attending Provider APRIL MERCEDES Attending BLU Champagne Attending BLU Champagne Attending BLU Champagne Referring Unavailable BLU KOTHARI Attending Unavailable BLU KOTHARI Attending Unavailable ISABEL CATHERINE Attending Unavailable ISABEL CATHERINE Referring Unavailable ISABEL CATHERINE Referring Unavailable JR. KAIN, SON Guerrero Attending ALEXIA Amado Attending Unavailable JR. KAIN, SON Guerrero Attending UnavailAPRIL James Attending Unavailable APRIL MERCEDES Attending Unavailable APRIL MERCEDES Attending Unavailable Blu Kothari Attending Blu Champagne Primary Care Unavailable Blu Kothari Admitting Kassandra Angel MD, Bouchra Giordano Attending Unavailable Allergies Allergy Classification Reported Allergen(s) Allergy [...] THE NEXT 30 MINUTES 4 tablet 11 11/29/2024 Active amLODIPine 2.5 mg oral tablet [...] with food. 100 tablet 3 12/29/2023 Active Dul[place]-3 Fatty Acids (Fish Oi l) 1000 MG capsule delayed-release (20 sources) [place]-3 Fatty Ac ids (Fish Oil) 1000 MG capsule delayed-release Take by mouth Daily Active [place]-3 Fatty Ac ids (Fish Oil) 1000 MG capsule delayed-release Take by mouth Daily. Active [place]-3 Fatty Ac ids (Fish Oil) 1000 MG [...] Translations: [Gastro-esophageal reflux disease without esophagitis] Onset: 07-03-2023 07-03-2023 Chronic Essential hypertension (20 sources) Hypertensive disorder; [...] Reference Range Facility MR lumbar spine wo conon MR lumbar spine wo [facility] [place] [address] [place] [address] MRI Report Signed Patient: Miguel Gonzalez MR#: [id number] : 1955 Acct:[id number] Age/Sex: 69 / F ADM Date: 03/18/25 Loc: MR Room: Type: [facility] Attending Dr: Blu Kothari II, MD [...] narrowing identified. L2-3: Broad-based disc bulge with cpza-ry-utksarly facet arthropathy. Minimal foraminal narrowing. Canal is patent. L3-L4: Circumferential disc bulge with moderate facet arthropathy. Mild neural foraminal narrowing. Minimal central canal stenosis. L4-5: Disc desiccation. Moderate disc facet arthropathy. No significant central canal or neural from narrowing identified. L5-S1: Circumferential disc bulge with moderate facet arthropathy. Moderate right moderate left neural foraminal narrowing. MR/MR lumbar spine wo con IMPRESSION: Xjws-ac-hfhdhouh multilevel degenerative changes without high-grade canal or neural foraminal narrowing. Moderate left neural foraminal narrowing at L5-S1 Impression dictated by: Ever Odonnell M.D. 03/18/2025 3:49 PM Dictation Location: [place] [address] Transcribed By: [facility] 03/18/25 1549 Dictated By: Ever Odonnell MD 03/18/25 1509 Signed By: 03/18/25 1549 Normal [facility] Magnetic resonance imaging r eportOrdered By: Ever Odonnell on 03-18-2025 Study report [facility] [place] [address] [place] [address] MRI Report Signed Patient: Miguel Gonzalez MR#: [id number] : 1955 Acct:[id number] Age/Sex: 69 / F ADM Date: 5 Loc: Room: Type: [facility] Attending Dr: Blu Kothari II, MD [...] narrowing identified. L2-3: Broad-based disc bulge with tpxi-mz-whagdbls facet arthropathy. Minimal foraminal narrowing. Canal is patent. L3-L4: Circumferential disc bulge with moderate facet arthropathy. Mild neural foraminal narrowing. Minimal central canal stenosis. L4-5: Disc desiccation. Moderate disc facet arthropathy. No significant central canal or neural from narrowing identified. L5-S1: Circumferential disc bulge with moderate facet arthropathy. Moderate right moderate left neural foraminal narrowing. MR/MR lumbar spine wo con IMPRESSION: Zgbm-yl-ibdqbyiu multilevel degenerative changes without high-grade canal or neural foraminal narrowing. Moderate left neural foraminal narrowing at L5-S1 Impression dictated by: Ever Odonnell M.D. 03/18/2025 3:49 PM Dictation Location: [place] [address] Transcribed By: [facility] 03/18/25 1549 Dictated By: Ever Odonnell MD 03/18/25 1509 Signed By: 03/18/25 1549 [facility] Work Phone: CT ABDOMEN PELVIS W IV [...] is a prominent scoliosis ELECTRONICALLY SIGNED BY: Péerz Courtney, DO Normal Not Available CREATININEon 02-23-2025 Creatinine [Mass/Vol] 0.55 mg/dL Normal 0.50-1.05 [employer] Comment on above: Performed By: #### 3 75 #### [facility] [address] Senior Librarian: Truman Liao MD GFR/1.73 sq M.predicted among non-blacks MDRD (S/P/Bld) [Vol rate/Area] 99 mL/min/{1.73_m2} Normal > OR = 60 [facility] Comment on above: Performed By: #### 3 75 #### [facility] [address], [address] [place] [id number] Senior Librarian: Truman Liao MD Urinalysis macro (dipstick) panel (U)on 02-18-2025 Bilirubin, UA Negative Negative - 4(70) +++ mg/dL [facility] Blood, UA Negative Negative - 50 Tan/mcL [facility] Glucose, UA Negative Negative - 2000(110) ++++ mg/dL [facility] Ketones, UA Negative Negative - 160(16) ++++ mg/dL [facility] Leukocytes, UA Negative Negative - 500+++ [place]/mcL [facility] Nitrite, UA Negative Negative - Positive [facility] pH, UA 6.5 5 - 9 [facility] Protein, UA Negative Negative - 2000(20) ++++ mg/dL [facility] Spec Grav, UA 1.005 1 - 1.03 [facility] Urobilinogen, UA 0.2 0.2 - 12 mg/dL [facility] MR SHOULDER RIGHT WO [...] Comment: MRI R T shoulder w/o at [facility]. Orbits if needed. Eval for RT rotator cuff tear XR Shoulder - right 2 Viewso n 09-09-2024 Imaging Result: scapular Y and AP, and [...] ViewsO rdered By: Jr. Waite on 08-02-2024 [facility] [employer] Work Phone: XR Shoulder - right 2 Viewso n 07-27-2024 Radiology Study observation (narrative) [facility] Dragon Tail Coding Summary.on 04-15-2021 Coding Summary. CD:[id number] Gh 0bWw+PGhlYWQ+WF3RLUEiG 25boLUyuZ1BN1fKFF8GLCP GUDNBDZ6CGO0wwQQ0KWpmX 2VybiAv MznrcWSsSX37RKy1BEM8zN eeKIwouC7geDDlQ9y1IySp HA45iX03KUckHLHbNgI9Ic ZpbjsgbWFy E8hzFxVuuSNhDlo+PHRhYm xlIHdpZHRoPScxMDAlJyBz oJjjVZ8bNv3hYZPyINNorN xhcHNlOiBj m4zoKSSnUBthZI8fbRhnE1 AmgSA9UQOkj7l2Zb93vHJ+ CTWhVWF8cQanBUkqx013Do Afo5hqHSO7 zKKlBNdcOIH0P59tp0P0MD NiQSReHFX9nIQ0jD6tlXco clgjU5TppASyYwX5EYT4aR JkrE3ciQmt lhtpmS0rQdl+J50QVL4HAB QMJO4VQkt5E9MoDkfoeMW+ QG47QEYkMN60nTSwlFLgm4 vciRe3SoNo LGHsMJD1nNbbHYxav8SeHK LiB05ggDGjt0K2WSEhiPfc yIIfXlWcqSF8eX1vTXviao fqi6ierrmj Skxpz9aufd93jA05V36nVJ btOBTrFRU8OODbSGFrjZii gd1mtS0uXc2+TQhek1azy8 ftoYy6VlVr HRVzouVawVxhCVI4q3LtAt 44F0CorDjrn8EqPys4bd94 yKNex5Q2sDF8TRvwYHQcxZ 7tCSowDwW9 RBPgRbNniB60fWEgWDccLj 4bpCyxkWcaJZ3uVBLoydgi ZETjhT8qXIKrdQBuoTybSC 4wNTBpbjtm x959OkAtWHC6XGNsoVLhF5 HrvF7yQzEnZORbQYFdS3Zk cHRbSSkaJ966QDuxGdQ3IQ XsvnSnB5Sb RUAnyUhxBlB0s8J6Eh1Yi2 MyqivtGCG5FEvlOUN1OfPu MeZyLvG4L4PlCsy6TKSpzS knTW5mF1Fb VEWnbstwkjpbqQV6IQMvPL BvsQ06rILlZMiqWi5mo9L5 q685NGAtJLMrhN04Yx8npF ogMTBwdCBU tN1tkrwje0uoiveiQtBbWE EtLVt1EFz5EZOsgPwtYdKu QUS1ArH7OXG5uMPfsH8qdZ myjbeqfZ3h Oyc+R44kfN1dCGA1XRM7so xfFHXuulCmTA64FQ60Y4Gz PjwvdGFibGU+PGRpdiBzdH vrHJ7gSxVz y9lxa4RgALelT1CuGPEwXZ jiElt9CUNtZOF6qJF5kI9v PSEcNPbme5D1nSR0T2Ehle Oynn8kr7xq GRGcCLtnX01hqFYuh4V3WM AxjCT8CELumFmkKuEftY86 Oyc+TDMiyPlgj3BcIikxn5 nwb6vjgNw3 EbLqZZHmilUhnPloFPH3v5 IsOw41Q88wHXobJOSeAVCp CBWhCHWsuYjqiq3asI9rCo 8+PGNvbCB3 cOS3yO4kVWJeEwO8MPmzI4 09IzLvmSTeCnofm8wnh5cf aHu6LjVePSSfciJlcIkaEK D0b3CtWm62 Z61vQTcdOQArDAKyFTKlHZ JquSuisf5doH3dIr6+PC9j a7pevd14uY31gOD+PHRkIH G9qXnlZWud PLUwgZ0mJXciYvW9KUZuGs CgvK32rLAyELsrBg8ddOam lObmRT1mYNEvbyfti173Hk Mjd2vqERUn iDMjSEloZPD0C72fh1C2BE CbIRYoWBM3uYN7iN0jqTwj bjogbGVmdDsgdmVydGljYW zvKFueR759 IHRvcDsnPlBhdGllbnQgTm GvMQr6R7UsCkt3XGUppWfy UA0ljCKdJDspYh2yjNdisL xlTF3dFUCs hygcq743FjNpe6mwHSEaaX ShDDskKLI5B92dx7M0JCJt PAFhGWI8wTQ9zH0ywHmkpq ogbGVmdDsg jtCvyNcwYSqmLAnhU712XN RvcDsnPkJpcnRoIERhdGU6 AY94AP54rDKdu4Y5wSN8O1 BhZGRpbmct srptqZF0KAQtNZNgyK02Ua 5wiZqiXf8dTTCtFRY2BFSw nMDiP3NszU3vZvCdURGpVU EkW4VgmTNn SOhqJ082WOkbJlU4DPVitg GyF8JhBZRdcXirWjL9r3W9 Su7SJ8W5ZJ97OJ20cBOhw2 O7lLI6Z3Qv SQZysnokvvvdeOE9ZDLsPG VxwH23Ag9xeMwdQp3hAUPk SLH9XVSilSNvI7FjnN2dJm AjMDAwMDAw H1SfxVJoDQpfM589YTfwSr X2KZUbsfVcW2PlOFHnnEns AnZ3l2D6Kr0FXFd4QP18QG 46iOBsy3U3 qIU6A9HoRQVjnxkpaurzoW L4DVOwPVCgoA57Ai5dxTnb Vn0kODPrFRL1DHOqpOXqO8 XnyN1kWlAl UUSmZXEmF6LmmMUnCMpbD1 00DUmxHvZ2GQGcjkGtH6Mf UXUxhKseGtF8q1O8Pa8DCY QxVX77VIU0 kSY0ZA70BD37O1VxOvuzsX FibGU+PHRhYmxlIHdpZHRo SKtkYHWqGpBmiJqjCO7oSy 9yZGVyLWNv yNshgKGnKlIrl2zlDMOiTM gwRE9zpBdaG0JkzTA0QKXr w8a1Rc97I58xB6ThgFM+PG WqzXF0dRE6 nD2eMtJrPvO3AFgmJ149Tw IpvPBhVjxhr4bkj9ewjCd2 EfC0HAYzyvAlnIicLFQ6b2 VtBd20C23t IHdpZHRoPSIxNSUiIHZhbG zneb3icH2uQg0+PGNvbCB3 wIH0kM7qJePoTiE0KRgiD7 49InRvcCIv Rvzwu8udb4anyBo5CzTgSL RgxpGfhVqoEMC7g1HuBp79 T6GiwApug5SwSgn5rx45yV Ycj8C4yHS7 G6KcNXXxcngyrJWocXveMQ 3nUUKewtmnLHJnhS0wXHGq D1k9MbWsPyW6MHzjL9Mxpw X7AEFttVHa LEhmAPX8L38ye3M7PGLgMV KyXIW3iNU4eC5hqLnsswwa bGVmdDsgdmVydGljYWwtYW ehK289PHFx oPvtATBjuL4nVXTpzOBwrG mlIT0jNWVjbcrsTehIAVQA VQGMYTMNBETUJR66IN98oQ Qdj8D0gQV3 G4VzXUUmoqphhftmdDM4IV VhKTNdoB39jLQkJWcjOk6m y7L5i491RKBrKTJkvG52If 9udDogMTBw gVXJiB3plgrge8vmnflxAy IoZMVaPEc5IIi6NUWhtNxy XpIjTWC3HkI3ZZB9sCLfoS 1hbGlnbjog oP6vEhf+GPQrGcTeWGq0KO wvdGQ+CPHySBV6tMovRYag OFWcoQ9mDJExI1x7JbKvEw H4UKonI7Tm OVYyatsbZb50qB2zYaVeXg M9ZZwrQ8DzvyU5OJSmyONi TKqdMYR7V75dh1W0EAMpJC WcJSN1aCV0 qJ1paRpnlcwzkDSzgCcstd YvtAhqXJkpQCsyK799SWAw tKjpYcI9PXzaJQQkAR44IJ 47qUTnk9K4 hFE8A4OeUKZrhkeiqzpxpE K6ZVNwCFEleZ29wJYdMEkl Za6yw8E9h741ILPwGQSgtT 38Rk5npGbx PYZxbWEVqL8cnntvu2redk yxOcZkKVUdQLt4UEp9LPVu rCwdYiCxYRQ7NfC0PDL2cU GlcN4crMar fduarP4mDeg+RmVtYWxlPC 26KX86wBFme9N4oGP2H9Qj NOXxuqlloskplTX8WSYrNC NjrZ18rURq CZlsIc9ad1P0t696OZOzBM HckW46Ko5xxAbmAMPwmRFI sY4ajbltd2fxksabTjQqGL OtLUy9OYh5 DGTtjLiaHkCrBER1WyD3AQ L3aALznL8twThtohlpnW7l Oyc+QV6xsorrsnQ7AH19WN 76F9LyBedg dGFibGU+PHRhYmxlIHdpZH GtRRxzYDYhDvWxmUzrWT3o Nx3lNGAgZLFpnYsskPYjGy Kyp1ceJBUe WElqDC9nhYjbA3GfxLH4KB Vgf7x3Uv79U64dH7WxpSH+ BBTmsDY8hHF0lE9eEjUpFc W6QOtuO329 NpUssYRvCqjkm2gzv8kzwZ f7ClPfFIRceoKqgHxzFIB7 a8CjKi00L50gESdeRRXsLS IyMCUiIHZh kRxmhe2omH7wAg0+PGNvbC F6bOD5aW5cItGdFuZ8SNjg A623SrBucYQsSjjtT29pP7 JvdXA+PHRy Mfh0STDmaAxjHK8lmYYpHH llFa7iHTA4GjIsKzTxXGwm V6LaTMXzzvuktyfqtOP3NW SxDKKnoM12 Ex3naSqcMc0pQLOyXXX3YQ PvhWPmS4TywG6pBeCdKDSa EFGyM4DbrNAbVPuhI951YI chXkN0IUSn hrAmD0WuXFRqrDhcEzD2t6 D5Xi3JkCkefOTmAU2qXuEb FBx8X8MpLbm9IDSuuGccIG 0ncGFkZGlu As2cjOjniNlrCB7gWFYyod kxn293AySru1raVOFjmUCz UDqqTPJ9M34at3T2IKYeTF IjTUD3oWE5 pM2moKqqqnlsrMHkbDnpov WygEbjALyrNHgpV255PTGx kKmnPzAIGyx9U8HaAto3EA AgmOwlXU1k nRAjVEbmAc0iyCwsxXsiTN 6sBJDdbxkvi447BgOuq3pe CXWerYJgJHloMMK4F35hj6 T3JXJiDUHo PMF5vMX0cY7mqTkqvhnzyM VmdDsgdmVydGljYWwtYWxp J799HSZfoYavUg0LEbw5Y1 PhLrf7ODZi uIrsDW5veDDzJSelKn8afG mdeEltAE7aHKOtnigab755 FvZgh4laMFKaeWEyFDgmKX Q1T04ty2N1 ONLnNOLiEEJ4pQI6bI8hrF lnbjogbGVmdDsgdmVydGlj QPpcXGpgJ102KVUzsGvzXh BheWVyOjwv dGQ+OB79qs10O5WmXhoyZz t9LWXlRSD1vWK8lF4hZUMi SNpna1Q8xRI7J4KjrfKktg 6eb9efCLZu ZTog (more content not included)... Normal [facility] ED Note-Physicianon 04-06-20 ED Note-Physician Basic [...] They are unsure of who the cats scrum product owner is. She states they are unsure whether the cat is up-to-date on its immunizations. She states that her dog is one after the cat, and she attempted to meat pickler the cat when the cat turned [...] Appropriate mood & affect. Integumentary: Warm, Dry, [place]. Puncture wounds noted to the left thumb [...] Assessment/Plan 1. Cat bite of left hand (S61.992A: Open bite of left hand, initial encounter) 2. Cat scratch of lower leg (S80.967U: Abrasion, unspecified lower leg, initial encounter) Orders: [...] TID Follow-up With When Contact Information BLU KOTHARI In 3 days 04/08/2021 EDT [address] [place] [address]- Business (1) Additional Instructions: Wear the splint [...] body noted. Read By: Alexandr Eduardo PA-C [facility] Comment on above: Result Comment: Elec tronically Signed By: Alexandr Eduardo PA-C\.br\Date and Time Signed: 04/05/21 21:31 EDT\.br\Electronically Co-Signed By: Abdoulaye Watson M.D.\.lala\Date and Time Co-Signed: 04/06/21 11:28 EDT Animal Bite Investigationon 04-05-2021 Animal Bite Investigation [id number] 00CD:127 Normal [facility] Consent for Treatmenton 03-24 Consent for Treatment [id number] 0CD:127 Normal [facility] Discharge Instructionson Discharge Instructions [id number] .[id number]:127 Normal [facility] ED Clinical Summaryon 2020 ED Clinical Summary [place] [id number] ED Clinical Summary Person Information Name: MIGUEL GONZALEZ [facility] Age: 65 Years : 1955 Sex: Female Language: Citizen Of [place] PCP: BLU KOTHARI MD Marital Status: Visit [...] 04/05/2021 14:46:42 04/05/2021 14:46:42 04/05/2021 14:46:42 ADDRESS: [address] [place] [address] [address] [place] [id number] [facility] DOC NOTES: MEDICAL INFORMATION: Prescriptions [...] Adult Follow up: With: Address: When: BLU KOTHARI [address] [place] [phone] Business (1) In 3 days 04/08/2021 Comments: [...] hand; 2:Cat scratch of lower leg Normal [facility] ED Patient Education Noteon 04-05-2021 ED [...] and water are not available, use hand merchant patroller. ? Change your dressing as told by [...] bad smell. Medicines ? Take or apply kfyf-dsj-trmwyqj and prescription medicines only as told by [...] antibiotic medic (more content not included)... Normal [facility] ED Patient Summaryon 021 ED Patient Summary [place] [id number] Patient Discharge Instructions Person Information Name: MIGUEL GONZALEZ Age: 65 Years Arrival Date: 04/05/2021 12:55:11 Discharge Diagnosis: 1:Cat bite of left hand; 2:Cat scratch of lower leg Primary Care Physician: BLU KOTHARI MD Provider Information Primary Provider: Walter Aguilar, Abdoulaye Herrera Advanced Architectural Superintendent:Alexandr Eduardo PA-C The exam and treatment you received in the Emergency Department were for an urgent problem and are not intended as complete care. It is important that you follow up with a doctor, nurse practitioner, or physician?s assistant front desk manager for ongoing care. If your symptoms become worse or you do not improve as expected and you are unable to reach your usual health care provider, you should return to the Emergency Department. We are available 24 hours a day. MIGUEL GONZALEZ Miles has been given the following list of patient education materials, prescriptions and follow-up instructions: Follow-up Instructions: With: Address: When: BLU KOTHARI [address] [place] [phone] Business (1) In 3 days 04/08/2021 Comments: [...] opioids can be used to help relieve haftscwd-yu-wfpwrx pain and are often prescribed following a [...] and Drug (more content not included)... Normal [facility] Vaccinationson 04-05-2021 Vaccinations [id number] .00CD:127 Normal [facility] XR Finger(s) Min 2 Views Lef [...] evident. FINAL REPORT Dictated: 04/05/2021 4:05 pm Mary Aguilar, Amrit Aquino Signed (Electronic Signature): 04/05/2021 4:05 pm Signed by: Amrit Hernandez M.D. Transcribed by: MAYELIN Technologist: HARRY Neal [facility] Covid-19 PCR (CVDTBH)on 11-25 Covid-19 PCR NOT DETECTED Normal NOT DETECTED [facility] Comment on above: Result Comment: This test is not yet approved or cleared by the [place] FDA. When there are no FDA-approved or cleared tests available, and other criteria are met, FDA can make tests available under an emergency access mechanism called an Emergency Use Authorization (EUA). The EUA for this test is supported by the [place] of Health and Human Service's (HHS's) declaration [...] longer be used). Performed By: #### C VDTBH #### [facility] [address] [place] [address] Adore Hale EUA Statement SEE BELOW Normal [facility] Comment on above: Result Comment: This test is not yet approved or cleared by the [place] FDA. When there are no FDA-approved or cleared tests available, and other criteria are met, FDA can make tests available under an emergency access mechanism called an Emergency Use Authorization (EUA). The EUA for this test is supported by the [place] of Health and Human Service?s (HHS?s) declaration [...] consistent with SARS-CoV-2. Performed By: #### C VDTBH #### [facility] [address] [place], [place] [address] Adore Hale Vital Signs Date Time Vital Sign Value Performing Clinician Faci lity 03-25-2025 08:54-0400 Body height 144.8 cm Blu [...] 09-23-2024 08:16-0400 Body weight 53.98 kg April MERAZ Work Phone: [facility] 08-20-2024 08:35-0400 Body height 144.8 cm Alexia Hemmer PA Work Phone: [facility] [...] 11:58-0400 Body height 144.8 cm Isabel Catherine KNITTER HELPER Work Phone: [facility] 07-27-2024 11:58-0400 Body mass index (BMI) [Ratio] 25.75 kg/m2 Isabel Catherine KNITTER HELPER Work Phone: [facility] 07-27-2024 11:58-0400 Body weight 53.98 kg Isabel Catherine KNITTER HELPER Work Phone: [facility] 07-21-2024 14:44-0400 [...] Date Encounter Type Care Provider Facility Start: 06-06-2025 End: 06-06-2025 ambulatory Bouchra Angel MD Facility:[facility] Start: 03-25-2025 End: 03-25-2025 Bamboo flowsheet Blu [...] encounter procedure Blu Kothari II Work Phone: [facility] [place] Work Phone: Start: 03-18-2025 End: 03-18-2025 ambulatory Blu Kothari II Work Phone: [facility] Work Phone: Start: 03-07-2025 End: 03-07-2025 Bamboo [...] [facility] Start: 02-18-2025 End: 02-18-2025 Bamboo flowsserg Kothari MD Work Phone: [facility] [...] up visit related to original px April J Mercedes PA Work Phone: [facility] [...] Start: 11-04-2024 End: 11-04-2024 Bamboo flowsheet April Mercdees PA Work Phone: [facility] Start: 11-04-2024 End: 11-04-2024 Bamboo flowsheet April Mercedes PA Work Phone: [facility] Start: 11-04-2024 End: 11-04-2024 Postop follow up visit related to original px April Mercedes PA Work Phone: [facility] Comment on above: S/P arthroscopy of r ight shoulder (Primary Dx) Start: 11-04-2024 End: 11-04-2024 ambulatory APRIL MERCEDES Not Available Start: 10-19-2024 End: 10-19-2024 Refill Isabel Catherine KNITTER HELPER Work Phone: [facility] Comment on above: Internal derangement of right shoulder (Primary Dx) Start: 09-23-2024 End: 09-23-2024 Bamboo flowsheet April Mercedes PA Work Phone: [facility] Start: 09-23-2024 End: 09-23-2024 Bamboo flowsheet April Mercedes PA Work Phone: [facility] Start: 09-23-2024 End: 09-23-2024 Patient encounter procedure April J Daren PA Work Phone: [facility] Comment on above: Pre-op examination ( Primary Dx) Start: 09-23-2024 End: 09-23-2024 Preprocedural examination done April Mercedes PA Work Phone: [facility] Work Phone: Start: 09-23-2024 End: 09-23-2024 ambulatory APRIL Yoseph MERCEDES Not Available Start: 09-15-2024 End: 09-15-2024 Bamboo flowsheet Jr. Son Waite DO Work Phone: [facility] Start: 09-15-2024 End: 09-15-2024 Bamboo flowsheet Jr. Son Guerrero Stepanic DO Work Phone: [facility] Start: 09-15-2024 End: 09-15-2024 Office outpatient visit 25 minutes Jr. Son Guerrero Stepmilena DO Work Phone: [facility] Comment on above: Internal derangement of right shoulder (Primary Dx) Start: 09-15-2024 End: 09-15-2024 ambulatory SON MELISSA Not Available Start: 08-23-2024 End: 08-23-2024 Telephone encounter Jr. Son Waite DO Work Phone: [facility] Comment on above: Surgery Start: 08-20-2024 End: 08-20-2024 Bamboo flowsheet Alexia Reid PA Work Phone: [facility] Start: 08-20-2024 End: 08-20-2024 Bamboo flowsheet Alexia Reid PA Work Phone: [facility] Start: 08-20-2024 End: 08-20-2024 Patient encounter procedure Alexia MERAZ Work Phone: [facility] Comment on above: Medicare [facility], subsequent (Primary Dx); ACP (advance care planning); Primary insomnia; Lumbosacral spondylosis with radiculopathy; Post herpetic neuralgia (CMS/HCC); Primary hypertension (CMS/HCC); Gastroesophageal reflux disease without esophagitis; Age-related osteoporosis without current pathological fracture (CMS/HCC); Cervical spondylosis without myelopathy; Lumbar paraspinal muscle spasm; Overweight (BMI 25.0-29.9); Elevated LDL cholesterol level ([facility]/HCC); History of hysterectomy; Hypercalcemia; Other problems related to lifestyle; Internal derangement of right shoulder Start: 08-20-2024 End: 08-20-2024 ambulatory ALEXIA REID Not Available Start: 08-13-2024 End: 08-13-2024 Bamboo flowsserg Waite DO Work Phone: [facility] Start: 08-13-2024 End: 08-13-2024 Bamboo flowsserg Waite DO Work Phone: [facility] Start: 08-13-2024 End: 08-13-2024 Office outpatient visit 25 minutes Jr. Son Waite DO Work Phone: [facility] Comment on above: Internal derangement of right shoulder (Primary Dx) Start: 08-13-2024 End: 08-13-2024 ambulatory OSN MELISSA Not Available Start: 08-11-2024 End: 08-11-2024 ambulatory ISABEL CATHERINE Not Available Start: 07-27-2024 End: 07-27-2024 Bamboo flowsheet Isabel Catherine [employer]PER Work Phone: [facility] Start: 07-27-2024 End: 07-27-2024 Bamboo flowsheet Isabel Catherine [employer]PER Work Phone: [facility] Start: 07-27-2024 End: 07-27-2024 Office outpatient new 30 minutes Isabel Catherine [employer]PER Work Phone: [facility] Comment on above: Internal derangement of right shoulder (Primary Dx); Right shoulder pain, unspecified chronicity Start: 07-27-2024 End: 07-27-2024 ambulatory ISABEL CATHERINE Not Available Start: 07-21-2024 End: 07-21-2024 Office outpatient visit 25 minutes Blu Kothari MD Work Phone: [facility] Comment on above: Cervical spondylosis without myelopathy (Primary Dx); Age-related osteoporosis without current pathological fracture ([facility]); Primary hypertension ([facility]); Gastroesophageal reflux disease without esophagitis; Lumbosacral spondylosis with radiculopathy; Elevated LDL cholesterol level ([facility]); Shoulder capsulitis, right Start: 07-21-2024 End: 07-21-2024 ambulatory BLU KOTHARI Not Available Start: 07-21-2024 End: 07-21-2024 Bamboo flowsheet Blu Kothari MD Work Phone: [facility] Start: 07-21-2024 End: 07-21-2024 Bamboo flowsheet Blu Kothari MD Work Phone: [facility] Start: 12-29-2023 Refill Blu Kothari MD Work Phone: [facility] Comment on above: Cervical spondylosis without myelopathy (Primary Dx) Start: 12-21-2020 End: 12-21-2020 Patient encounter procedure BLU KOTHARI Facility: Procedures Date Procedure Procedure Detail Performing Clinician Start: 03-18-2025 MR lumbar spine wo con Blu Kothari II Work Phone: Start: 02-18-2025 Urnls dip stick/tablet rgnt non-auto w/o micrscp Blu Kothari MD Work Phone: Start: 07-27-2024 Radex shoulder complete minimum 2 views Isabel Catherine [employer]PER Work Phone: Start: 07-03-2023 H/O: hysterectomy History of hysterectomy Blu Kothari MD Work Phone: H/O: hysterectomy History of hysterectomy Alexia MERAZ Work Phone: Plan of Treatment Date Care Activity Detail Author Start: 07-17-2026 Screening for malign ant neoplasm of colon [facility] Start: 08-20-2025 Medicare Annual Wellness (AWV) Medicare Annual Wellness (AWV) [facility] Start: 05-23-2025 Influenza vaccination Influenza Vacc ine (#1) [facility] Comment on above: Postponed from 07/25 (Patient Refused) Start: 03-25-2025 End: 03-25-2025 Patient encounter procedure [facility] Comment on above: Arrived Start: 03-07-2025 End: 03-07-2026 MR Lumbar spine WO contrast MR lumbar spine wo contrast Imaging Routine Lumbosacral spondylosis with radiculopathy Other idiopathic scoliosis, thoracolumbar region Lumbar disc narrowing Expected: 03/07/2025 (Approximate), Expires: 03/07/2026 [facility] Work Phone: Comment on above: Expected: 03/07/2025 (Approximate), Expires: 03/07/2026 Start: 03-07-2025 End: 03-07-2025 Patient encounter procedure [facility] Comment on above: Arrived Start: 02-18-2025 End: 02-18-2026 Creatinine [Mass/volume] in Serum or Plasma Creatinine, Serum Lab Routine Right flank pain, chronic Expected: 02/18/2025 (Approximate), Expires: 02/18/2026 [facility] Comment on above: Expected: 02/18/2025 (Approximate), Expires: 02/18/2026 Start: 02-18-2025 End: 02-18-2026 CT Abdomen and Pelvis W contrast IV CT abdomen pelvis w IV contrast Imaging Routine Right flank pain, chronic Expected: 02/18/2025 (Approximate), Expires: 02/18/2026 [facility] Work Phone: Comment on above: [...] hypertension (CMS/HCC) Expected: 08/20/2024 (Approximate), Expires: 08/20/2025 [facility] Work Phone: Comment on above: Expected: 08/20/2024 (Approximate), Expires: 08/20/2025 Start: 08-20-2024 End: 08-20-2025 Comprehensive metabolic 2000 panel - Serum or Plasma Comprehensive metabolic panel Lab Routine Medicare annual wellness visit, subsequent Primary hypertension (CMS/HCC) Elevated LDL cholesterol level (CMS/HCC) Hypercalcemia Expected: 08/20/2024 (Approximate), Expires: 08/20/2025 [facility] Comment on above: Expected: 08/20/2024 (Approximate), Expires: 08/20/2025 Start: 08-20-2024 End: 08-20-2025 HEPATITIS C AB W/RFL RNS, PCR W/RFL GENOTYPE,LIPA HEPATITIS C AB W/RFL RNS, PCR W/RFL GENOTYPE,LIPA Lab Routine Medicare annual wellness visit, subsequent Other problems related to lifestyle Expected: 08/20/2024 (Approximate), Expires: 08/20/2025 [facility] Comment on above: Expected: 08/20/2024 (Approximate), [...] EDT Ancillary Procedure [facility] [address] [place] [address] [facility] Start: 08-06-2024 End: 08-06-2024 Patient encounter procedure 08/06/2024 9:30 AM EDT Office Visit [facility] [address] [facility] [address] [place] [id number] Blu Kothari MD [address] [facility] [address] [place] [address] [facility] Start: 08-01-2024 Medicare Annual [...] Office Visit [facility] [address] [facility] [address] [place] [address] Isabel Catherine, KNITTER HELPER [address] [place] [address] Right shoulder pain, unspecified chronicity [facility] Comment on above: Right shoulder pain, unspecified chronicity Start: 07-25-2024 Influenza vaccination Influenza Vacc ine (#1) [facility] Start: 07-21-2024 End: 07-21-2024 Patient encounter procedure 07/21/2024 2:45 PM EDT Office Visit [facility] [address] [facility] [address] [place] [address] Blu Kothari MD [address] [facility] [address] [place] [address] Arrived [facility] Comment on above: Arrived Start: 12-29-2023 End: 12-29-2023 Patient encounter procedure 12/29/2023 3:30 PM EST Office Visit [facility] [address] [facility] [address] [place] [address] Blu Kothari MD [address] [facility] [address] [place] [address] [facility] Start: 06-20-2022 Pneumococcal Vaccine : 65+ Years (2 - PCV) Pneumococcal Vaccine: 65+ Years (2 - PCV) [facility] Start: 06-20-2022 Pneumococcal Vaccine : 65+ Years (2 of 2 - PCV) Pneumococcal Vaccine: 65+ Years (2 of 2 - PCV) [facility] Start: 1995 Screening for malign ant neoplasm of breast Mammogram [facility] Start: 1955 Screening for malign ant neoplasm of colon [facility] Immunizations Immunization Date Immunization Notes Care Provider Fa cility 10-10-2024 Pneumococcal Conjuga te PCV 20 Blu [...] Payer Self-pay 2023 Private Health Insurance [id number] 2023 Unknown [id number] 2022 Medicare [id number] 2022 Medicare [id number] 2022 Medicare [id number] 2022 Unknown [id number] [id number] [id number] 1959 Unknown [id number] 1955 Unknown [id number] 2.16.840.1.485752.3.579.2.593 1955 Unknown [id number] 2.16.840.1.269395.3.579.2.1259 1955 Unknown [id number] 2.16.840.1.202090.3.579.2.125 1955 Unknown [id number] 2.16.840.1.351973.3.579.2.125 1955 Unknown [id number] 2.16.840.1.289950.3.579.2.1258 1955 Unknown [id number] 2.16.840.1.946031.3.579.2.125 1955 Unknown [id number] 2.16.840.1.176134.3.579.2.1258 1955 Unknown [id number] 2.16.840.1.313080.3.579.2.125 1955 Unknown [id number] 2.16.840.1.728421.3.579.2.1258 1955 Unknown [id number] 2.16.840.1.502531.3.579.2.125 1955 Unknown [id number] 2.16.840.1.336499.3.579.2.125 1955 Unknown [id number] 2.16.840.1.107776.3.579.2.1258 1955 Unknown [id number] 2.16.840.1.261876.3.579.2.1258 1955 Unknown [id number] 2.16.840.1.596538.3.579.2.125 1955 Unknown [id number] 2.16.840.1.156340.3.579.2.125 1955 Unknown [id number] 2.16.840.1.890237.3.579.2.1259 1955 Unknown [id number] 2.16.840.1.721777.3.579.2.196 Private Health Insurance [facility] [id number] Unknown [id number] 2.16.840.1.059097.3.579.2.531 Social History Date Type Detail Facility Start: 07-03-2023 Tobacco smoking stat [facility] Never smoked tobacco [facility] Start: 07-03-2023 End: 07-27-2024 Tobacco use and exposure Smokeless tobacco non-user [facility] Start: 11-14-2023 End: 07-21-2024 Alcohol intake Ex-drinker (finding) [facility] Start: 08-01-2023 End: 03-25-2025 History of Social function [facility] Start: 08-01-2023 End: 03-25-2025 Tobacco use panel [facility] Start: 07-04-2023 Alcohol Comment caffeine: 1-2 cups per day [facility] Start: 1955 Sex Assigned At Not on file [facility] Start: 07-27-2024 Tobacco smoking stat [facility] Ex-smoker [facility] Work Phone: History of tobacco use Current smoker [facility] History of tobacco use Cigarette Smoker N [facility] Start: 08-20-2024 End: 03-25-2025 Alcoholic beverage intake Current drinker of alcohol (finding) [facility] Tobacco smoking stat [facility] Unknown if ever smoked [facility] Work Phone: Start: 03-19-2025 Sex Female (finding) [facility] Start: 1955 Sex Assigned At Female F [facility] Functional Status Date Assessment Result Facility 03-25-2025 Patient Health [facility] ionnaire 2 item (PHQ-2) [Reported] [facility] 03-07-2025 Patient Health Quest ionnaire 2 [...] 8 Multiple Vitamin (Multivitamin Adult) tablet Daily [place]-3 Fatty Acids (Fish Oil) 1000 MG capsule [...] cancer Father Past Medical History: Diagnosis Date 'Wiqnr-mbt-kysgc' infant with signs of malnutrition Arthritis Cervical [...] Greater than 25 minutes was spent in ykiv-sz-yqpy consultation and coordination of care. Follow up [...] 8 Multiple Vitamin (Multivitamin Adult) tablet Daily [place]-3 Fatty Acids (Fish Oil) 1000 MG capsule [...] cancer Father Past Medical History: Diagnosis Date 'Avocs-nbn-vpwps' with signs of malnutrition Arthritis Cervical spondylolysis [...] 8 Multiple Vitamin (Multivitamin Adult) tablet Daily. [place]-3 Fatty Acids (Fish Oil) 1000 MG capsule [...] cancer Father Past Medical History: Diagnosis Date 'Qpthu-pby-umwyu' with signs of malnutrition Arthritis Cervical spondylolysis [...] Final Bilirubin, UA 02/18/2025 Negative Negative - 4(70) +++ mg/dL Final Ketones, UA 02/18/2025 Negative [...] Referral Reason: Specialty Services Required Referral Location: [facility] Scheduling Requested Specialty: Physical Therapy Number of [...] STATES SHE DOES HAVE THERAPY SCHEDULED @ [facility] 12/06/24 [address] TO DRIVE BY THEN OTHERWISE SHE WILL SCHEDULE WITH ZENAIDA AT [facility] HEP. PRESENTS WEARING SLING TODAY, [...] Referral Reason: Specialty Services Required Referral Location: [facility] Scheduling Requested Specialty: Physical Therapy Number of Visits Requested: 1 ASSESSMENT: ICD-10-CM 1. S/P arthroscopy of right shoulder Z98.890 Ambulatory referral to Physical Therapy S/p rotator cuff repair and SAD Assessment & Plan 1. Post-operative status following right shoulder arthroscopy, rotator cuff repair, and subacromial decompression. She has expressed a preference for outpatient therapy at [facility]. Given her satisfactory passive and active range [...] encounter [facility] 09-23-2024 History of Leslie brown illness Narrative Images from the original note were not included. GENERAL HISTORY AND PHYSICAL: NAME: Miguel Gonzalez : 1955 HISTORY OF PRESENT ILLNESS: Miguel Gonzalez is an 69 y.o. @ female. Here for surgery instructions - (R) SHOULDER SCOPE 10/20/2024 @CALLIE PAST MEDICAL HISTORY: Past Medical History: Diagnosis Date 'Idrdj-xik-ytoes' infant with signs of malnutrition Arthritis Cervical [...] food Multiple Vitamin (Multivitamin Adult) tablet Daily [place]-3 Fatty Acids (Fish Oil) 1000 MG capsule [...] surgery scheduled. (R) SHOULDER SCOPE 10/20 @CALLIE WALKER INSTRUCTIONS GIVEN TODAY 09/23 @8:30AM - CYN ULTRASLING GIVEN TODAY ARTHREX NOTIFIED Patient presents [...] Brace was dispensed to the patient and [employer] Patient Agreement was completed and signed. Warranty information was given and explained to the patient with good understanding. Proper care and fitting was also explained to the patient with good understanding. Follow up for 11/04 @1:30pm w/aline in reasnor. documented in this encounter [facility] 09-15-2024 History of Presen t illness Narrative Images from the original note were not included. HISTORY OF PRESENT ILLNESS: EST PT Miguel Gonzalez is an 69 y.o. @ female. (EST PT) RECHECK (R) SHOULDER ; S/P HEP XRAYS, 07/27/24 IN PSYCHIATRIC MRI 08/11/24 IN PSYCHIATRIC NO MDP / PREDNISONE NO CORTISONE INJ [...] food Multiple Vitamin (Multivitamin Adult) tablet Daily [place]-3 Fatty Acids (Fish Oil) 1000 MG capsule [...] for her next scheduled appt. Patient left vm requesting to go ahead and schedule her sx. Please advise [phone]. documented in this encounter [facility] 08-23-2024 Telephone encount er Note Patient left vm requesting to go ahead and schedule her sx. Please advise [phone]. [facility] 08-20-2024 History of Presen t illness Narrative [...] 3 Multiple Vitamin (Multivitamin Adult) tablet Daily. [place]-3 Fatty Acids (Fish Oil) 1000 MG capsule [...] cancer Father Past Medical History: Diagnosis Date 'Jnlbi-wnu-oztaw' with signs of malnutrition Arthritis Cervical spondylolysis [...] Do you have a medical power of patent attorney?: Yes Objective : BP 138/86 Pulse [...] related to lifestyle Pt was born in 5. She is agreeable to Hep C screening. - HEPATITIS C AB W/RFL RNS, PCR W/RFL GENOTYPE,LIPA 16. Internal derangement of right shoulder The patient is seeing a certified medical aide for this condition, treatment is deferred to [...] ; HERE FOR MRI RESULTS 08/11/24 IN PSYCHIATRIC XRAYS, 07/27/24 IN PSYCHIATRIC MRI 08/11/24 IN PSYCHIATRIC NO MDP / PREDNISONE NO CORTISONE INJ [...] food Multiple Vitamin (Multivitamin Adult) tablet Daily [place]-3 Fatty Acids (Fish Oil) 1000 MG capsule [...] scribe for Dr. Waite/terri, PLAN: We have discussed (R) shoulder xrays [...] she states that she is going to [place] in 2 weeks and then her is scheduled to consult at [facility] 09/10 ; patient would like to [...] MEDICAL HISTORY: Past Medical History: Diagnosis Date 'Fzhnw-ynu-zvvxa' infant with signs of malnutrition Arthritis Cervical spondylolysis GERD (gastroesophageal reflux disease) Hypertension ([facility]/HCC) Shingles PAST SURGICAL HISTORY: Past Surgical History: [...] food Multiple Vitamin (Multivitamin Adult) tablet Daily [place]-3 Fatty Acids (Fish Oil) 1000 MG capsule [...] symptoms develop for requiring urgent evaluation. Isabel Catherine, ALEE-WAIST CUTTER documented in this encounter [facility] 07-21-2024 History of Pressayra t illness Narrative Images from the original note were not included. HPI Follow-up Additional comments: Pain med Med Refill Additional comments: [facility] Last edited by Valery Guardado LPN on 07/21/2024 2:49 PM. Subjective Patient ID: Miguel Gonzalez is a 69 y.o. female who presents for Follow-up (Pain med), Hypertension, Shoulder Pain, and Med Refill (Tr[facility]ad[facility]--[facility]//). Shoulder Pain Patient complains of right [...] 3 Multiple Vitamin (Multivitamin Adult) tablet Daily. [place]-3 Fatty Acids (Fish Oil) 1000 MG capsule [...] cancer Father Past Medical History: Diagnosis Date 'Idadm-xeh-jblrt' infant with signs of malnutrition Arthritis Cervical [...] myelopathy Age-related osteoporosis without current pathological fracture (CMS/HCC) Primary hypertension (CMS/HCC) Gastroesophageal reflux disease without esophagitis Lumbosacral spondylosis [...] without myelopathy- Primary [facility]* Diagnosis Internal derangement of right shoulder- Primary documented in this encounter [facility]* Diagnosis Pre-op examination- Primary documented [facility] encounter [facility]* Diagnosis Internal derangement of right shoulder- Primary documented in this encounter [facility]* Diagnosis S/P arthroscopy of right shoulder- Primary documented [facility]* Diagnosis Cervical spondylosis without myelopathy- Primary Age-related osteoporosis without current pathological fracture ([facility]/HCC) Primary hypertension ([facility]) Unspecified essential hypertension Gastroesophageal reflux disease without esophagitis Esophageal reflux Lumbosacral spondylosis with radiculopathy Elevated LDL cholesterol level ([facility]) Shoulder capsulitis, right documented [facility]* Diagnosis Internal derangement of right shoulder- Primary Right shoulder pain, unspecified chronicity documented [facility] encounter [facility]* Diagnosis Internal derangement of right shoulder- Primary documented in this encounter [facility]* Diagnosis Medicare annual wellness visit, subsequent- Primary ACP (advance care planning) Other specified counseling Primary insomnia Persistent disorder of initiating or maintaining sleep Lumbosacral spondylosis with radiculopathy Post herpetic neuralgia ([facility]/HCC) Herpes zoster with other nervous system complications Primary hypertension ([facility]) Unspecified essential hypertension Gastroesophageal reflux disease without esophagitis Esophageal reflux Age-related osteoporosis without current pathological fracture ([facility]) Cervical spondylosis without myelopathy Lumbar paraspinal muscle spasm Other symptoms referable to back Overweight (BMI 25.0-29.9) Overweight Elevated LDL cholesterol level ([facility]/HCC) History of hysterectomy Acquired absence of both cervix and uterus Hypercalcemia Other problems related to lifestyle Internal derangement of right shoulder [facility]* Diagnosis S/P arthroscopy of right shoulder- Primary documented in this encounter [facility]* Diagnosis S/P arthroscopy of right shoulder- Primary documented [facility] encounter [facility]* Diagnosis Lumbosacral spondylosis with radiculopathy- Primary Right flank pain, chronic documented [facility]* Diagnosis Lumbosacral spondylosis with radiculopathy- Primary Right flank pain, chronic Other idiopathic scoliosis, thoracolumbar region Lumbar disc narrowing Degeneration of lumbar or lumbosacral intervertebral disc documented [facility] this encounter [facility] noteNo assessment information availableSt. [facility] Work Phone: Evaluation note* Diagnosis Lumbosacral spondylosis with radiculopathy- Primary documented in this encounter [facility] for [facility] (narrative)* Consultation (Routine) - Pending Review Specialty Diagnoses / Procedures Referred By Contact Referred To Contact Orthopaedic Surgery Diagnoses Shoulder capsulitis, right Blu Kothari MD [address] [facility] [address] [place] [address] April Mercedes PA [address] [facility] [address] [place] [address] Referral ID Status Reason Start Date Expiration Date Visits Requested Visits Authorized [id number] Pending Review Specialty Services Required 07/21/2024 01/17/2025 1 1 [facility] Summary Purpose Family History No Family History Records FoundNo Family History Records FoundNo Family History Records FoundNo Family History Records FoundNo Family History Records FoundNo Family History Records Found Advance Directives No Advanced Directives Records Found Advance Directive Response Recorded Date/ Time Advance Directives No March 17 3:48pm Reason for Referral Specialty Diagnoses / Procedures Referred By Lorne brown Referred To Contact Radiology Diagnoses Internal derangement of right shoulder Procedures MR shoulder right wo IV contrast Isabel Catherine T, KNITTER HELPER [address] [place] [address] [facility] Mr [address] [place] [address] Referral ID Status Reason Start Date Expiration Date V isits Requested Visits Authorized [id number] Authorized 07/27/2024 01/23/2025 1 1 Chief Complaint and Reason for Visit Chief Complaint Admit Date M47.27 M41.25 M51.369 March 18, 2025 1 0:57am Additional Source Comments INFORMATION SOURCE (unrecogn ized section and content) DATE CREATED AUTHOR 12/29/2020 [facility] DATE CREATED AUTHOR AUTHOR'S ORGANIZ ATION 07/09/2021 [facility] DATE CREATED AUTHOR AUTHOR'S ORGANIZ ATION 02/26/2025 [facility] DATE CREATED AUTHOR AUTHOR'S ORGANIZ ATION 03/30/2025 [facility] DATE CREATED AUTHOR AUTHOR'S ORGANIZ ATION 04/09/2025 [facility] DATE CREATED AUTHOR AUTHOR'S ORGANIZ ATION 06/13/2025 [facility] Reason for Visit (unrecogniz ed section and [...] Care Teams (unrecognized sec tion and content) Gluing Machine Operator Relationship Specialty Start Date End Date Blu Kothari MD [address] [facility] [address] [place] [address] PCP - General Internal Medicine 04/01/23 Gluing Machine Operator Relationship Specialty Start Date End Date Blu Kothari MD [address] [facility] [address] [place] [address] PCP - General Internal Medicine 04/01/23 Gluing Machine Operator Relationship Specialty Start Date End Date Blu Kothari MD [address] [facility] [address] [place] [address] PCP - General Internal Medicine 04/01/23 Gluing Machine Operator Relationship Specialty Start Date End Date Blu Kothari MD [address] [facility] [address] [place] [address] PCP - General Internal Medicine 04/01/23 Gluing Machine Operator Relationship Specialty Start Date End Date Blu Kothari MD [address] [facility] [address] [place] [address] PCP - General Internal Medicine 04/01/23 Gluing Machine Operator Relationship Specialty Start Date End Date Blu Kothari MD [address] [facility] [address] [place] [address] PCP - General Internal Medicine 04/01/23 Gluing Machine Operator Relationship Specialty Start Date End Date Blu Kothari MD [address] [facility] [address] [place] [address] PCP - General Internal Medicine 04/01/23 Gluing Machine Operator Relationship Specialty Start Date End Date Blu Kothari MD [address] [facility] [address] [place] [address] PCP - General Internal Medicine 04/01/23 Gluing Machine Operator Relationship Specialty Start Date End Date Blu Kothari MD [address] [facility] [address] [place] [address] PCP - General Internal Medicine 04/01/23 Gluing Machine Operator Relationship Specialty Start Date End Date Blu Kothari MD [address] [place] [address] PCP - General Internal Medicine 04/01/23 Gluing Machine Operator Relationship Specialty Start Date End Date Blu Kothari MD [address] [address] [place] [address] PCP - General Internal Medicine 04/01/23 Gluing Machine Operator Relationship Specialty Start Date End Date Blu Kothari MD [address] [facility] [address] [place] [address] PCP - General Internal Medicine 04/01/23 Gluing Machine Operator Relationship Specialty Start Date End Date Blu Kothari MD [address] [facility] [address] [place] [address] PCP - General Internal Medicine 04/01/23 Blu Kothari MD [address] [facility] [address] [place] [address] PCP - ACO Reach 12/31/24 Gluing Machine Operator Relationship Specialty Start Date End Date Blu Kothari MD [address] [facility] [address] [place] [address] PCP - General Internal Medicine 04/01/23 Blu Kothari MD [address] [facility] [address] [place] [address] PCP - ACO Reach 12/31/24 Gluing Machine Operator Relationship Specialty Start Date End Date Blu Kothari MD [address] [address] [place] [address] PCP - General Internal Medicine 04/01/23 Blu Kothari MD [address] [place] [address] PCP - ACO Reach 12/31/24 Gluing Machine Operator Relationship Specialty Start Date End Date Blu Kothari MD [address] [place] [address] PCP - General Internal Medicine 04/01/23 Blu Kothari MD [address] [place] [address] PCP - ACO Reach 12/31/24 Gluing Machine Operator Relationship Specialty Start Date End Date Blu Kothari MD [address] [place] [address] PCP - General Internal Medicine 04/01/23 Blu Kothari MD [address] [address] [place] [address] PCP - O Reach 12/31/24 Gluing Machine Operator Relationship Specialty Start Date End Date Blu Kothari MD [address] [address] [place] [address] PCP - General Internal Medicine 04/01/23 Blu Kothari MD [address] [facility] [address] [place] [address] PCP - O Reach 12/31/24 Team Status: Active Member Role Status Dates Blu Kothari II MD Primary Care Provider Active Team Status: Inactive Member Role Status Dates Blu Kothari II MD Primary Care Provid er, Attending Provider Active Start: March 18, 2025 End: March 18, 2025 Gluing Machine Operator Relationship Specialty Start Date End Date Blu Kothari MD [address] [facility] [address] [place] [address] PCP - General Internal Medicine 04/01/23 Blu Kothari MD [address] [facility] [address] [place] [address] PCP - O Reach 12/31/24 Goals (unrecognized section and content) [...] BE BASED ON THE PRIMARY CLINICAL RECORDS. [facility] MD [facility]. provides no warranty or guarantee of the accuracy or completeness of information in this document.
--- NOTE | 2025-06-22 08:34 | PM.CN ---
Consult Note: HPI Data of Consult Patient: known to practice within the last 3 years Requesting Physician: Tierney Kohli NP Primary Care Provider: CLAY TAVERAS Consult Narrative Reason for consult: back pain Narrative: Patricia Gonzalez a pleasant 69 year old female with chronic thoracic and lumbar pain presents for evaluation. Pain today 1/10, aching, increasing to 10/10 with standing, walking, housework, activity. pain improved with sitting, lying, hot tub, and sleep. pt currently on mobic 15mg daily and tramadol 50mg PRN through PCP without side effects. continues to engage in HEP without benefit. recently underwent right SIJ injection with >50% improvement ongoing. cc:: CC: Tierney Kohli NP Review of Systems ROS Musculoskeletal Reports: back pain; Denies: extremity pain PFSH PFSH Medical History Low back pain ?M54.50 - Low back pain, unspecified (ICD-10) Osteoarthritis ?M19.90 - Unspecified osteoarthritis, unspecified site (ICD-10) Acid reflux ?K21.9 - Gastro-esophageal reflux disease without esophagitis (ICD-10) High cholesterol ?E78.00 - Pure hypercholesterolemia, unspecified (ICD-10) Hypertension ?I10 - Essential (primary) hypertension (ICD-10) Surgical History History of hysterectomy ?Z90.710 - Acquired absence of both cervix and uterus (ICD-10) History of appendectomy ?Z90.49 - Acquired absence of other specified parts of digestive tract (ICD-10) Social History Smoking status: Former smoker Meds Home Medications and Allergies Home Medications ?Medication ?Instructions ?Recorded ?Confirmed ?Type amlodipine 2.5 mg tablet 2.5 mg PO DAILY 08/04/23 06/06/25 History meloxicam 15 mg tablet 15 mg PO DAILY 08/04/23 06/06/25 History omeprazole 40 mg capsule,delayed 40 mg PO DAILY 08/04/23 06/06/25 History release rosuvastatin 10 mg tablet (Crestor) 10 mg PO DAILY 08/04/23 06/06/25 History alendronate 70 mg tablet mg PO 04/14/25 History tramadol 50 mg tablet mg 04/14/25 History Allergies Allergy/AdvReac Type Severity Reaction Status Date / Time lisinopril Allergy Cough Verified 06/06/25 08:24 Exam Constitutional Documenting provider has reviewed patient's vital signs: yes Common normals: no apparent distress, oriented x3, healthy appearing, alert and well nourished General appearance: cooperative HENMT Common normals: normocephalic, hearing grossly normal bilaterally and moist oral mucous membranes Head and scalp: normocephalic Eye Common normals: PERRL Pupil: PERRL Neck & C-Spine Common normals: full ROM General: normal visual inspection Chest Common normals: inspection of chest normal Respiratory Common normals: normal respiratory effort, no retractions and no use of accessory muscles Back & Pelvis Lumbar spine/lower back: pain with ROM, lumbar spinal tenderness Lumbar spinal tenderness location: L1, L2, L3 and L4 and straight leg raise negative bilaterally Sacroiliac joints: SI joints normal Other: bilateral facet loading positive at L1-4 strength 5/5 in BLE sensation intact BLE Neuro Common normals: oriented x3 Sensorium/orientation: alert Psych Common normals: mental status grossly normal, thought process normal, cooperative, affect normal, speech normal and activity/motor behavior normal Speech: normal speech Thought process: normal thought process Results Additional Findings Additional findings: If on a controlled substance or opioids, I have checked an [place] report on this patient and there are no aberrancies noted in the prescribing history.??If on a controlled substance or opioid a drug screen was completed and reviewed within the last year, and if there has not been a drug screen completed we ordered one today to monitor higher risk, state monitored pain medication use. As part of providing excellent, safe, comprehensive care, the following was completed at our patient's visit: 1. A medication reconciliation and review to ensure accurate knowledge of current/active medications, including asking our patients to inform us about any [id number] medications or herbal remedies/nutritional supplements/alternative remedies. 2. A review to specifically ensure our patients have had annual screening for screening for depression, screening for tobacco use, and screening for unhealthy alcohol use. For concerning screenings had a discussion with the patient, provided patient education, and recommended follow-up with primary care provider when appropriate. If patient noted with a risk of falling, they received education on strength, gait, and balance training to prevent future risk of falling. Portions of this note may have been carried over from the previous visit and updated as appropriate. Please note this office utilizes paper charting in addition to the electronic medical record. A list of current medications, vitals, and PMH is available there as the clinical staff outside of myself do not have access to [facility] charting during the clinic day operations. As part of providing quality comprehensive care the current medications, vitals, and PMH were reviewed in the paper chart. Assessment and Plan Assessment and Plan (1) Lumbar spondylosis: Assessment and Plan: The patient has had over 3 months of moderate to severe low back pain with functional impairment and inadequate response to conservative care including NSAIDS (unless there are contraindication such as concurrent blood thinners), multiple oral or topical pain medications, and home exercise program/physical therapy.? Patient has completed >6 weeks of guided home exercise program and/or formal physical therapy program without relief of their symptoms.? The Oswestry Disability Index was completed, and the patient scored a 8%.?? We discussed the risks and benefits of the procedure with the patient, and we are NOT planning on using sedation as outlined in the guidelines from Medicare unless there is a documented reason that sedation would be strongly recommended.?? ?The procedure will be completed with fluoroscopic guidance.? prior bilateral L4/5 L5/S1 facet RFA providing >50% improvement ongoing at those levels (2) Sacroiliitis: (3) Myofascial pain: Plan bilateral L2-3 L3-4 facet medial branch block x2 working towards RFA for axial facet mediated low back pain secondary to lumbar facet arthropathy/lumbar spondylosis continue medication management through PCP f/u after each injection
== END 2025-06-22 08:16 | disposition home or self-care (01) ==
LOC: PM 08:15
PROVIDERS: PCP Internal Medicine; Visit Provider Nurse Practitioner
DX: M47.816 Spondylosis without myelopathy or radiculopathy, lumbar region (principal); M46.1 Sacroiliitis, not elsewhere classified; M79.18 Myalgia, other site
CPT/HCPCS: G0463

== ENCOUNTER 2025-07-11 06:47 | Day surgery (SDC) | payer OTHER, MEDICARE, SELFPAY ==
--- OUTSIDE RECORDS SUMMARY | 2025-07-11 06:50 | XMS_ITS | CCD ---
Author Organization [facility] Care Team Providers Care Cloth Seconds Sorter Name Role Phone BLU KOTHARI Attending BLU Champagne Consulting BLU Champagne Primary Care BLU Champagne Admitting Blu Champagne MD Primary Care Provider [phone] Blu Kothari MD Unavailable Blu Kothari II Primary Care Provider Blu Kothari II Attending Provider APRIL MERCEDES Attending BLU Champagne Attending BLU Champagne Attending Unavailable BLU KOTHARI Referring Unavailable BLU KOTHARI Attending Unavailable BLU KOTHARI Attending Unavailable ISABEL CATHERINE Attending Unavailable ISABEL CATHERINE Referring Unavailable ISABEL CATHERINE Referring Unavailable JR. KAIN, SON Guerrero Attending ALEXIA Amado Attending Unavailable JR. KAIN, SON Guerrero Attending Unavaila APRIL Shirley Attending Unavailable APRIL MERCEDES Attending Unavailable APRIL MERCEDES Attending Unavailable Blu Kothari Attending Blu Champagne Primary Care Unavailable Blu Kothari Admitting Kassandra Angel MD, Bouchra Giordano Attending Unavailable Jeanne RIVERA, Bouchra Giordano Attending Unavailable Allergies Allergy Classification [...] with food. 100 tablet 3 12/29/2023 Active [place]-3 Fatty Acids (Fish Oi l) 1000 MG capsule delayed-release (20 sources) [place]-3 Fatty Ac ids (Fish Oil) 1000 MG capsule delayed-release Take by mouth Daily Active [place]-3 Fatty Ac ids (Fish Oil) 1000 MG capsule delayed-release Take by mouth Daily. Active [place]-3 Fatty Ac ids (Fish Oil) 1000 MG [...] spine wo conon MR lumbar spine wo con [facility] [place] [address] MRI Report Signed Patient: Miguel Gonzalez MR#: [id number] : 1955 Acct:[id number] Age/Sex: 69 / F ADM Date: 03/18/25 Loc: MR Room: Type: [facility] Attending Dr: Blu Kothari II, MD Copies [...] narrowing identified. L2-3: Broad-based disc bulge with yrsm-hm-zgoyhihp facet arthropathy. Minimal foraminal narrowing. Canal is patent. L3-L4: Circumferential disc bulge with moderate facet arthropathy. Mild neural foraminal narrowing. Minimal central canal stenosis. L4-5: Disc desiccation. Moderate disc facet arthropathy. No significant central canal or neural from narrowing identified. L5-S1: Circumferential disc bulge with moderate facet arthropathy. Moderate right moderate left neural foraminal narrowing. MR/MR lumbar spine wo con IMPRESSION: Folh-aj-zkezzvgz multilevel degenerative changes without high-grade canal or neural foraminal narrowing. Moderate left neural foraminal narrowing at L5-S1 Impression dictated by: Ever Odonnell M.D. 03/18/2025 3:49 PM Dictation Location: [place] [address] Transcribed By: [facility] 03/18/25 1549 Dictated By: Ever Odonnell MD 03/18/25 1509 Signed By: 03/18/25 1549 Normal [facility] Magnetic resonance imaging r eportOrdered By: Ever Odonnell on 03-18-2025 Study report [facility] [place] [address] MRI Report Signed Patient: Miguel Gonzalez MR#: [id number] : 1955 Acct:[id number] Age/Sex: 69 / F ADM Date: 5 Loc: MR Room: Type: [facility] Attending Dr: Blu Kothari II, MD Copies [...] narrowing identified. L2-3: Broad-based disc bulge with dmjv-wz-jgxjubgk facet arthropathy. Minimal foraminal narrowing. Canal is patent. L3-L4: Circumferential disc bulge with moderate facet arthropathy. Mild neural foraminal narrowing. Minimal central canal stenosis. L4-5: Disc desiccation. Moderate disc facet arthropathy. No significant central canal or neural from narrowing identified. L5-S1: Circumferential disc bulge with moderate facet arthropathy. Moderate right moderate left neural foraminal narrowing. MR/MR lumbar spine wo con IMPRESSION: Ecxj-cv-gneocibw multilevel degenerative changes without high-grade canal or neural foraminal narrowing. Moderate left neural foraminal narrowing at L5-S1 Impression dictated by: Ever Odonnell M.D. 03/18/2025 3:49 PM Dictation Location: [place] [address] Transcribed By: [facility] 03/18/25 1549 Dictated By: Ever Odonnell MD 03/18/25 1509 Signed By: 03/18/25 1549 [facility] Work Phone: CT ABDOMEN PELVIS W [...] prominent scoliosis ELECTRONICALLY SIGNED BY: Pérez Courtney, Normal Not Available CREATININEon 02-23-2025 Creatinine [Mass/Vol] 0.55 mg/dL Normal 0.50-1.05 [facility] Comment on above: Performed By: #### 3 75 #### [facility] [address], [address] [place], [place] [id number] Construction Equipment Overhauler: Truman Liao MD GFR/1.73 sq M.predicted among non-blacks MDRD (S/P/Bld) [Vol rate/Area] 99 mL/min/{1.73_m2} Normal > OR = 60 [facility] Comment on above: Performed By: #### 3 75 #### [facility] [address] [id number] Construction Equipment Overhauler: Truman Liao MD Urinalysis macro (dipstick) panel (U)on 02-18-2025 Bilirubin, UA Negative Negative - 4(70) +++ mg/dL [facility] Blood, UA Negative Negative - 50 Tan/mcL [facility] Glucose, UA Negative Negative - 2000(110) ++++ mg/dL [facility] Ketones, UA Negative Negative - 160(16) ++++ mg/dL [facility] Leukocytes, UA Negative Negative - 500+++ [place]/mcL [facility] Nitrite, UA Negative Negative - Positive [facility] pH, UA 6.5 5 - 9 [facility] Protein, UA Negative Negative - 2000(20) ++++ mg/dL [facility] Spec Grav, UA 1.005 1 - 1.03 [facility] Urobilinogen, UA 0.2 0.2 - 12 mg/dL [facility] MR SHOULDER RIGHT WO IV CONT Lesley 08-11-2024 MR SHOULDER RIGHT WO IV CONTRAST [...] Comment: MRI R T shoulder w/o at [facility]. Orbits if needed. Eval for RT [...] and/or dislocation. Impression: Unremarkable right shoulder. [facility] XR Shoulder - right 2 ViewsO rdered By: Jr. Waite on 08-02-2024 [facility] Work Phone: XR Shoulder - right 2 Viewso n 07-27-2024 Radiology Study observation (narrative) [facility] Coding Summary.on 04-15-2021 Coding Summary. CD:[id number] Gh 0bWw+PGhlYWQ+YJ8EGLBqX 01flDNhgD0OY0dYAM1BZKC PQUVGWM4EVL0kmZV4BSxlB 2VybiAv QuxbcSPzRP49TPr5HUQ4lN piJQhhpM4rtMCqG0l7HdTp LM19rO72SDowRQBeVvW3St ZpbjsgbWFy A2lqGhNqtDYuYkp+PHRhYm xlIHdpZHRoPScxMDAlJyBz aRpmAE6xTc1fSHVtJOByjE xhcHNlOiBj r7zmARPsPEbwBO5saEvlK9 KwfEV7TWBza9p6Sk25yCQ+ VUTvLOM6zWqxQDyex040Jt Qyo2vrLTZ5 dMBzVMydLGH5B42li3K3EX HyTOQjUMJ2aOO8wK6mxHmq xiwyN4AhyTNzGuW7XMP4eF TodU8ohIzn oaefwU3wQtb+Q39XIT8HYE KTVM9ALzq6Z2ZiWhivwFP+ FW10FJZdGD72jFMimMHat5 ckvLs5WkKz DRKlKIC9uJveETqgy4CwDK EkT00mkLIpr3M9JRCsnVvl uEEhDjEbmRV3eW5tJYkpkp uwk7kvyrep Vmird3inzs58nR48Q79yGC itXAMbBVI4DHEoFOVlpIzi xy7icY1lPu3+KIzzb9vru2 bejIh9MgGn ZQReepHvnPwgXJF1o7PlGa 57A1HqiLjap7McXlb5zh64 eSIxn6J1kPQ0XCcjLEKnjW 9xSNkbKwD1 YCIzEqTlyE52zBLfLVqhSd 7rzVawuFceKZ6sXQHijhzd USJmiO5aTEGwcRSmgBxoKF 4wNTBpbjtm e992HcVlHPJ4MEXkrVUnF4 PdbR6qAbCwPTXvEQTbZ8Ps kLOvVZouZ550HShlAqE9DF XuueGlO2Ig RWQmwBsuFyG2d9L9Mx2Tb3 XxdegcHLH6TWkfVRA5OvMz OnUsLbP7U1DiVlg6ZTYdzV nlCO0yU2Jq WSZuwlqsrfwvmQH0VGRgEU VolJ36rZByPUvlBu6hq0I5 g199RTZuKKExrH83Zw7ryR ogMTBwdCBU zX5wfpnrj4uroesrRgGgQZ NuMKn6IYm6VDLvoBeuDjFu WOA1XqV1YQR2fTRysL9aoM gumjutuK0w Oyc+L99eiM4cLIG9FET9nz dxXJRnadDaQO76KU87G6Ly PjwvdGFibGU+PGRpdiBzdH ydHG6iRiYm k2kek6EbBKgzS3HxEYYxKI waUuw7QMIiREB3yGO6iQ0l RNHjPObav6H2eDZ4H1Jceb Jvpd6kh4aa MWJjJNrgM47kjWBbd3R6JY NrnZP0LYIgjZqvXySqiD59 Oyc+OKFzvFzqc3CbGyodq2 uzo0hkaXr4 QxObPCGjdtCfgNxrQWQ3l4 QbNg62X29lJQrzUPPxBLLe KUFjTXUqjTnede8wdD0nVj 8+PGNvbCB3 zVT6aH3jNBGtOyS3MToxX5 87OfThbALsQkkbg6rel2lm kNk5KdYpAHIaaiUwuZupBG V5g7MtUz43 S83wOIwmVQZdENGsLQIlGQ GshObhby5xcW6tIv1+PC9j f4ymiv02dB51hGZ+PHRkIH T5uQkhICbe XHThjE6tQWrzDuO0KQGbWc CenT47nLJtCWavCo8fdLyj pVxdMZ9aONVhdmgol021Er Gdx7tpXOOc xXHiTJrhOBM1J09rp6H4DT FgSFKiWHI9oMB7cB3ztUfk bjogbGVmdDsgdmVydGljYW ncFFeiI882 IHRvcDsnPlBhdGllbnQgTm IzCHp6Z7YvQfe0WGNnnKow QX5dpVVdMWcfTc0gnDyibT gtZO3tZFVd wpull012GnSjd3fjPVQkgJ ByMQqgJNT9T69ym4P7CGRu WSTgPXW0nCP4vB5sqMnjhz ogbGVmdDsg cqAofFvcOSanAAdmW023SE RvcDsnPkJpcnRoIERhdGU6 GA13JP06oMBdg2O2eNE2J3 BhZGRpbmct xyjbwOZ0TPZdFHBrxW58Pg 2bxOnfQp3zEAJcZUQ5EQPj qCMgE1MasU6qGtXqOWPrZR PaB5UesFFc HAxtY387UDjdLxM8EHTdgq YqC0XsRPJvjUloBtB9t8U6 Nq0BQ1R5PP62QI15mPBxb5 Q4wNI4J8Mr BIJitfquenmdyHK8MJShUG XswP39Tz2cxMgrGv7eUUHw FUD0VEFupWBvE8MsdT9lTe AjMDAwMDAw T9YzdQEdQBxyT707FFktAp F9SEKqdaFuL6IdFQEapOnv WwT3p6W7Bx9UROp6EJ75LZ 21aPVkq7R8 xNE6X3GnHFYesenkcrhgvN X7SKPhMNCfaM62Ij7cdMro Rd2tTRKzHTG9FZRraYMkZ2 ThlD2eWvKr PBPjCLCzZ3WcaEHvIVurW7 62KMvpOuO6BDIhmkDqP1Jd FUHnoUwrGlO2n0L2Kc3NWA NlSF39PQC8 zVN7JT89YI27V7AaJgzlkQ FibGU+PHRhYmxlIHdpZHRo OUosRQWtJtVbiHrsIT5rXb 9yZGVyLWNv oAasbIGcLtTqv8naMXHaQQ hoYK5rwXaxV7KeuRJ4VRGt y0o6Dx30V25wS3SnfQT+PG EafNA0oCK9 zE5hFuIlMxX4TCxwU199Fq RptAMfSzwit4nez7gbcSn4 YeG1PYQizcPmhMcfEYH0k0 AzKh18D31m IHdpZHRoPSIxNSUiIHZhbG oaum9kiW6uKg9+PGNvbCB3 hOY0xH6zWxSbVaD4ZEzdK7 49InRvcCIv Rfiiu7ynz6helCp1LiMrYX JxdvFqzXvoGBI8b9ZvWl89 I2VhuWjrj1VfVpp8qu08gB Dbw0Q4uVR8 K4FbRKSmcxvfqWDjeYkhPU 4pJHOsvdthPHMgfF6sONRc J1o1PqKuWmH7YUflY2Jzjf V4MBWtzAHi DBrnJDH7F60ww8R8XOGmZV ErLNE5lJT7wP8adJdqunxm bGVmdDsgdmVydGljYWwtYW zhM044OQCu kTumLJAadD8uLPWneZDjpE wfME0dOJPqbywyIctIUZDY ZPHARQQTZHYMKF75IQ57yC Ihi8T6vXP0 T7QhTIAhwhlzxyiztIV4XN AbPOGxnH38eEZqLLlqIc8u u3X8z134YZMtPAFncR97Zi 9udDogMTBw iMDXmF0awwulv9udujsxZc EiIHGnNTc9FYi8UWOwdIlb UzAbRBO5PeK9BGD3tJHskD 1hbGlnbjog nN4eOpa+BLTbLtLtFWj6TM wvdGQ+POWmQLG5lAsqLMpv MHEvoU6bJBBvF3b9HnMzZq D8JNdcD0Jc PPKzaoncHr53pT2oWuCgTd O6JNruB0XljaT6WGAyeHEn DEmrZZO7N21qd2G4QVFqCZ ZyIBM8uWO3 eF5clPajeephcWKubRycdo FsuHupQBasVStxS823BDRn kPfiRzC9JAepNRDnOL03YE 92dULas2P6 wLL4C9UaJRIkrzeezbntwL T4CBPxRDLvaX32sDJlCQml Fh9ty5T0j708IILxJTCtvI 00Bz4dfBab VGRnnPFNxT4mvdbwz6tkpy fnGlGpVCYiLFs2CMv5JWFm oLphDxLtCSI4HqT1DDA4lG KfeK6nhBnb mcgkaC5vKhj+RmVtYWxlPC 56ZX85sHCdh1R4zBL3R6Os SJMhfutlcjznmMO6WXBgST BlhL06bVPv LFvyGu8az4V1g206LMDcKY AnmK03Bq4lqZulWEXaxNZN aR6cfyvsq2eugdbpQdQrQH OgLVj0VKy0 KVCkiOvoOhOhNUX9RtF6PZ U9uVPcgQ3peYnnwchhiF9z Oyc+GR2efbzyciH7DA39QG 67F2DuRomy dGFibGU+PHRhYmxlIHdpZH LtUNitHOFaVhEowQbiLL5c Sh7bTCYmBOGhoJawqXDjXg Ael7rqQGWx KAagBA8piMjfT2NtrWJ4GD Sqk3u5Aq89J13yG8FleSR+ GJJyyOS0iHH5aL4iNbRwIm X5ELgsO025 TbCpcXByNwbwr9srr3qiyS h0GgVjDPQxpuDvbEbjBCE0 p7MoSn92E62uRUahZEJpXO IyMCUiIHZh gEvsjg5hlO6gEd4+PGNvbC O5iUP9gW3tXnCjMhL1HGap A023VlLuqDThXszkI94pP1 JvdXA+PHRy Rwy1XQCiiGpgTE4upSVoER eyLk6bEFA7UhVtFxHwMOxj K3HoLDCavdwvwsdrsEG5YO VpDENywI66 Az5qmRzyCc9zHMKnVWB0HI OhmMKtW9EqvW4mRvHdVNZx CHFsZ3LerXLsOMgmR797NL brDyZ0HYXe eoCbN7YuZGZiwNpzJcV1k2 H6Su3TlEccnLXqDA9kWjOf EKx1U3SfZos2RFDxsKqeSM 0ncGFkZGlu Xe4sjPkadYluME1iKIJepn qvy855QgWis3hmUWIwwHDr VBkkZPO3L29fq1G5MOTnFB XrLTR0uER8 oN8srDazstllcGUabTotvy XegLanBDgkKWimD043NICz cAkiUlZJUyy6S5NrYry9RK EsvDmmQN3t hRRfBQzpZd0ozWtexYzyXX 6oEKVosbsyv462NvMzg6hw VQOsuFFkAFrpNMY6A36jw9 E1NFSyADJs FZD0rGY0fK5raKcgjpvsuK VmdDsgdmVydGljYWwtYWxp I466SADhoDrhRj2WLqk4K4 ZwPra3TXGr qWkcBN7dnIShKSmlJr9pgQ xyyByiWH9mQPUrjogsf741 JnUjh3avLFVgcDZrDNwsGG W3S42gv6I6 TPFwZMLsRHO1lTL2bH3sqX lnbjogbGVmdDsgdmVydGlj BCxfWJamP731LGAezYnsUh BheWVyOjwv dGQ+FZ01la39Z5KcRkbhCp b3AUIjULF4xUR8tL3mNEOk FIyyy8J5kXC8G9WjdrUxme 0te9ygQSSs ZTog (more content not included)... 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 She states they are unsure whether the cat is up-to-date on its immunizations. She states that her dog is one after the cat, and she attempted to brain picker the cat when the cat turned [...] Appropriate mood & affect. Integumentary: Warm, Dry, Renick. Puncture wounds noted to the left thumb [...] Assessment/Plan 1. Cat bite of left hand (P01.007T: Open bite of left hand, initial encounter) 2. Cat scratch of lower leg (S80.622W: Abrasion, unspecified lower leg, initial encounter) Orders: [...] BLU KOTHARI In 3 days 04/08/[address] [place] [phone]- Business (1) Additional Instructions: Wear the splint [...] body noted. Read By: Alexandr Eduardo PA-C [facility] Comment on above: Result Comment: Elec tronically Signed By: Alexandr Eduardo PA-C\.br\Date and Time Signed: 04/05/21 21:31 EDT\.br\Electronically Co-Signed By: Abdoulaye Watson M.D.\.br\Date and Time Co-Signed: 04/06/21 11:28 EDT Animal Bite Investigationon 04-05-2021 Animal Bite Investigation [id number] 00CD:127 Normal [facility] Consent for Treatmenton 03-24 Consent for Treatment [id number] 0CD:127 Normal [facility] Discharge Instructionson Discharge Instructions [id number] .[id number]:127 Normal [facility] ED Clinical Summaryon 2020 ED Clinical Summary [address] [address] ED Clinical Summary Person Information Name: MIGUEL GONZALEZ [facility] Age: 65 Years : 1955 Sex: Female Language: Fijian PCP: BLU KOTHARI MD Marital Status: Visit [...] 04/05/2021 14:46:42 04/05/2021 14:46:42 04/05/2021 14:46:42 ADDRESS: [address] [place] [address] [address] [place] [id number] PHYS DOC NOTES: MEDICAL INFORMATION: Prescriptions Given: [...] Follow up: With: Address: When: [place] [address] Business (1) In 3 days 04/08/2021 Comments: [...] hand; 2:Cat scratch of lower leg Normal [facility] ED Patient Education Noteon 04-05-2021 ED [...] and water are not available, use hand glass presser. ? Change your dressing as told by [...] bad smell. Medicines ? Take or apply jwcf-ldn-vpqduog and prescription medicines only as told by [...] antibiotic medic (more content not included)... Normal [facility] ED Patient Summaryon 021 ED Patient Summary [place] [address] Patient Discharge Instructions Person Information Name: MIGUEL GONZALEZ Age: 65 Years Arrival Date: 04/05/2021 12:55:11 Discharge Diagnosis: 1:Cat bite of left hand; 2:Cat scratch of lower leg Primary Care Physician: DARCY RIVERA, BLU [place] Provider Information Primary Provider: Walter Aguilar, Abdoulaye Herrera [employer] Foreman:Alexandr Eduardo PA-C The exam and treatment you received in the Emergency Department were for an urgent problem and are not intended as complete care. It is important that you follow up with a doctor, nurse practitioner, or physician?s delinquent tax collection assistant for ongoing care. If your symptoms become worse or you do not improve as expected and you are unable to reach your usual health care provider, you should return to the Emergency Department. We are available 24 hours a day. MIGUEL GONZALEZ has been given the following list of patient education materials, prescriptions and follow-up instructions: Follow-up Instructions: With: Address: When: [place] [address] Business (1) In 3 days 04/08/2021 Comments: [...] opioids can be used to help relieve qifqatzh-mh-fsjczl pain and are often prescribed following a [...] and Drug (more content not included)... Normal [facility] Vaccinationson 04-05-2021 Vaccinations [id number] .[id number]:127 Normal [facility] XR Finger(s) Min 2 Views Lef [...] FINAL REPORT Dictated: 04/05/2021 4:05 pm Mary M.DAmrit Galvan Signed (Electronic Signature): 04/05/2021 4:05 pm Signed by: Amrit Hernandez M.D. Transcribed by: MAYELIN Technologist: HARRY Neal [facility] Covid-19 PCR (CVDTB)on 11-25 Covid-19 PCR NOT DETECTED Normal NOT DETECTED [facility] Comment on above: Result Comment: This test is not yet approved or cleared by the [place] FDA. When there are no FDA-approved or cleared tests available, and other criteria are met, FDA can make tests available under an emergency access mechanism called an Emergency Use Authorization (EUA). The EUA for this test is supported by the Contact Center Associate of Health and Human Service's (HHS's) declaration [...] longer be used). Performed By: #### C VDTB #### [facility] [address] [place] [address] Adoretripp Hale EUA Statement SEE BELOW Normal [facility] Comment on above: Result Comment: This test is not yet approved or cleared by the [place] FDA. When there are no FDA-approved or cleared tests available, and other criteria are met, FDA can make tests available under an emergency access mechanism called an Emergency Use Authorization (EUA). The EUA for this test is supported by the Contact Center Associate of Health and Human Service?s (HHS?s) declaration [...] SARS-CoV-2. Performed By: #### C VDTBH #### [facility] [address] [place] [address] Adore Hale Vital Signs Date Time Vital Sign Value Performing Clinician Mikala stevens 03-25-2025 08:54-0400 Body height 144.8 cm Blu Kothari MD Work Phone: [facility] 03-25-2025 08:54-0400 Body mass index (BMI) [Ratio] 26.81 kg/m2 Blu Kothari MD Work Phone: [facility] 03-25-2025 08:54-0400 Body weight 56.2 kg Blu Kothari MD Work Phone: [facility] 03-25-2025 08:54-0400 Diastolic blood pressure 102 mm[Hg] Blu Kothari MD Work Phone: [facility] 03-25-2025 08:54-0400 Heart rate 68 /min Blu Kothari MD Work Phone: [facility] 03-25-2025 08:54-0400 Respiratory rate 16 /min Blu Kothari MD Work Phone: [facility] 03-25-2025 08:54-0400 SaO2% (BldA) [Mass fraction] 98 % Blu Kothari MD Work Phone: [facility] 03-25-2025 08:54-0400 Systolic blood pressure 164 mm[Hg] Blu Kothari MD Work Phone: [facility] 03-07-2025 09:18-0400 Body height 144.8 cm Blu Kothari MD Work Phone: [facility] 03-07-2025 09:18-0400 Body mass index (BMI) [Ratio] 26.62 kg/m2 Blu Kothari MD Work Phone: [facility] 03-07-2025 09:18-0400 Body weight 55.79 kg Blu Kothari MD Work Phone: [facility] 03-07-2025 09:18-0400 Diastolic blood pressure 76 mm[Hg] Blu Kothari MD Work Phone: [facility] 03-07-2025 09:18-0400 Heart rate 70 /min Blu Kothari MD Work Phone: [facility] 03-07-2025 09:18-0400 SaO2% (BldA) [Mass fraction] 99 % Blu Kothari MD Work Phone: [facility] 03-07-2025 09:18-0400 Systolic blood pressure 128 mm[Hg] Blu Kothari MD Work Phone: [facility] 02-18-2025 09:04-0400 Body height 144.8 cm Blu Kothari MD Work Phone: [facility] 02-18-2025 09:04-0400 Body mass index (BMI) [Ratio] 26.83 kg/m2 Blu Kothari MD Work Phone: [facility] 02-18-2025 09:04-0400 Body weight 56.25 kg Blu Kothari MD Work Phone: [facility] 02-18-2025 09:04-0400 Diastolic blood pressure 74 mm[Hg] Blu Kothari MD Work Phone: [facility] 02-18-2025 09:04-0400 Heart rate 72 /min Blu Kothari MD Work Phone: [facility] 02-18-2025 09:04-0400 SaO2% (BldA) [Mass fraction] 98 % Blu Kothari MD Work Phone: [facility] 02-18-2025 09:04-0400 Systolic blood pressure 132 mm[Hg] Blu Kothari MD Work Phone: [facility] 09-23-2024 08:16-0400 Body height 144.8 cm April MERAZ Work Phone: [facility] 09-23-2024 08:16-0400 Body mass index (BMI) [Ratio] 25.75 kg/m2 April MERAZ Work Phone: [facility] 09-23-2024 08:16-0400 Body weight 53.98 kg April Mercedes PA Work Phone: [facility] 08-20-2024 08:35-0400 Body height 144.8 cm Alexia Hemmer PA Work Phone: [facility] 08-20-2024 08:35-0400 Body mass index (BMI) [Ratio] 25.92 kg/m2 Alexia Hemmer PA Work Phone: [facility] 08-20-2024 08:35-0400 Body weight 54.34 kg Alexia Hemmer PA Work Phone: [facility] 08-20-2024 08:35-0400 Diastolic blood pressure 86 mm[Hg] Alexia Hemmer PA Work Phone: [facility] 08-20-2024 08:35-0400 Heart rate 70 /min Alexia Hemmer PA Work Phone: [facility] 08-20-2024 08:35-0400 Respiratory rate 16 /min Alexia Hemmer PA Work Phone: [facility] 08-20-2024 08:35-0400 SaO2% (BldA) [Mass fraction] 96 % Alexia Hemmer PA Work Phone: [facility] 08-20-2024 08:35-0400 Systolic blood pressure 138 mm[Hg] Alexia Hemmer PA Work Phone: [facility] 07-27-2024 11:58-0400 Body height 144.8 cm Isabel Catherine YOUTH PROGRAM DIRECTOR Work Phone: [facility] 07-27-2024 11:58-0400 Body mass index (BMI) [Ratio] 25.75 kg/m2 Isabel Catherine NP Work Phone: [facility] 07-27-2024 11:58-0400 Body weight 53.98 kg Isabel Catherine NP Work Phone: [facility] 07-21-2024 14:44-0400 Body height 147.3 cm Blu Kothari MD Work Phone: [facility] 07-21-2024 14:44-0400 Body mass index (BMI) [Ratio] 25.71 kg/m2 Blu Kothari MD Work Phone: [facility] 07-21-2024 14:44-0400 Body weight 55.79 kg Blu Kothari MD Work Phone: [facility] 07-21-2024 14:44-0400 Diastolic blood pressure 80 mm[Hg] Blu Kothari MD Work Phone: [facility] 07-21-2024 14:44-0400 Heart rate 79 /min Blu Kothari MD Work Phone: [facility] 07-21-2024 14:44-0400 SaO2% (BldA) [Mass fraction] 98 % Blu Kothari MD Work Phone: [facility] 07-21-2024 14:44-0400 Systolic blood pressure 130 mm[Hg] Blu Kothari MD Work Phone: [facility] Encounters Encounter Date Encounter Type Care Provider Facility Start: 06-06-2025 End: 06-06-2025 ambulatory Bouchra Angel MD Facility:[facility] Start: 05-02-2025 End: 05-02-2025 ambulatory Bouchra Angel MD Facility:[facility] Start: 03-25-2025 End: 03-25-2025 Bamboo flowsheet Blu [...] encounter procedure Blu Kothari II Work Phone: [facility] [place] Work Phone: Start: 03-18-2025 End: 03-18-2025 ambulatory Blu Kothari II Work Phone: [facility] Work Phone: Start: 03-07-2025 End: 03-07-2025 Bamboo [...] Start: 01-03-2025 End: 01-03-2025 Bamboo flowsheet April Mercedes PA Work Phone: [facility] Start: 01-03-2025 [...] Start: 12-02-2024 End: 12-02-2024 Bamboo flowsheet April Mecredes PA Work Phone: [facility] Start: [...] Start: 11-04-2024 End: 11-04-2024 ambulatory APRIL Hameed MERCEDES Not Available Start: 10-19-2024 End: 10-19-2024 Refill Isabel Catherine YOU[employer] PROGRAM DIRECTOR Work Phone: [facility] Comment on above: Internal derangement of right shoulder (Primary Dx) Start: 09-23-2024 End: 09-23-2024 Bamboo flowsheet April Mercedes PA Work Phone: [facility] Start: 09-23-2024 End: 09-23-2024 Bamboo flowsheet April Mercedes PA Work Phone: [facility] Start: 09-23-2024 End: 09-23-2024 Patient encounter procedure April Mercedes PA Work Phone: [facility] Comment on above: Pre-op examination ( Primary Dx) Start: 09-23-2024 End: 09-23-2024 Preprocedural examination done April Mercedes PA Work Phone: [facility] Work Phone: Start: 09-23-2024 End: 09-23-2024 ambulatory APRIL MERCEDES Not Available Start: 09-15-2024 End: 09-15-2024 [...] Start: 09-15-2024 End: 09-15-2024 ambulatory SON MELISSA STEPANIC Not Available Start: 08-23-2024 End: 08-23-2024 Telephone encounter Jr. Son Guerrero Stepanic DO Work Phone: [facility] Comment on above: Surgery Start: 08-20-2024 End: 08-20-2024 Bamboo flowsheet Alexia Reid PA Work Phone: [facility] Start: 08-20-2024 End: 08-20-2024 Bamboo flowsheet Alexia MERAZ Work Phone: [facility] Start: 08-20-2024 End: 08-20-2024 Patient encounter procedure Alexia MERAZ Work Phone: [facility] Comment on above: Medicare annual [facility] visit, subsequent (Primary Dx); ACP (advance care planning); Primary insomnia; Lumbosacral spondylosis with radiculopathy; Post herpetic neuralgia (CMS/HCC); Primary hypertension (CMS/HCC); Gastroesophageal reflux disease without esophagitis; Age-related osteoporosis without current pathological fracture (CMS/HCC); Cervical spondylosis without myelopathy; Lumbar paraspinal muscle spasm; Overweight (BMI 25.0-29.9); Elevated LDL cholesterol level ([facility]/HCC); History of hysterectomy; Hypercalcemia; Other problems related to lifestyle; Internal derangement of right shoulder Start: 08-20-2024 End: 08-20-2024 ambulatory ALEXIA REID Not Available Start: 08-13-2024 End: 08-13-2024 Bamboo flowsserg Waite DO Work Phone: [facility] Start: 08-13-2024 End: 08-13-2024 Bamboo flowsheet Jr. Son Guerrero Stepmilena DO Work Phone: [facility] Start: 08-13-2024 End: 08-13-2024 Office outpatient visit 25 minutes Jr. Son Waite DO Work Phone: [facility] Comment on above: Internal derangement of right shoulder (Primary Dx) Start: 08-13-2024 End: 08-13-2024 ambulatory SON MELISSA Not Available Start: 08-11-2024 End: 08-11-2024 ambulatory ISABEL CATHERINE Not Available Start: 07-27-2024 End: 07-27-2024 Bamboo flowsheet Isabel Catherine YOUTH PROGRAM DIRECTOR Work Phone: [facility] Start: 07-27-2024 End: 07-27-2024 Bamboo flowsheet Isabel Catherine YOUTH PROGRAM DIRECTOR Work Phone: [facility] Start: 07-27-2024 End: 07-27-2024 Office outpatient new 30 minutes Isabel Catherine YOUTH PROGRAM DIRECTOR Work Phone: [facility] Comment on above: Internal derangement of right shoulder (Primary Dx); Right shoulder pain, unspecified chronicity Start: 07-27-2024 End: 07-27-2024 ambulatory ISABEL CATHERINE Not Available Start: 07-21-2024 End: 07-21-2024 Office outpatient visit 25 minutes Blu Kothari MD Work Phone: [facility] Comment on above: Cervical spondylosis without myelopathy (Primary Dx); Age-related osteoporosis without current pathological fracture ([facility]/HCC); Primary hypertension ([facility]); Gastroesophageal reflux disease without esophagitis; Lumbosacral spondylosis with radiculopathy; Elevated LDL cholesterol level ([facility]); Shoulder capsulitis, right Start: 07-21-2024 End: 07-21-2024 ambulatory BLU KOTHARI Not Available Start: 07-21-2024 End: 07-21-2024 Bamboo flowsheet Blu Kothari MD Work Phone: [facility] Start: 07-21-2024 End: 07-21-2024 Bamboo flowsheet Bul Kothari MD Work Phone: [facility] [...] shoulder complete minimum 2 views Isabel Catherine YOUTH PROGRAM DIRECTOR Work Phone: Start: 08-10-2023 H/O: hysterectomy History of hysterectomy Blu Kothari MD Work Phone: H/O: hysterectomy History of hysterectomy Alexia MERAZ Work Phone: Plan of Treatment Date Care Activity Detail Author Start: 07-17-2026 Screening for malign ant neoplasm of colon [facility] Start: 08-20-2025 Medicare Annual Wellness (AWV) Medicare Annual Wellness (AWV) [facility] Start: 05-23-2025 Influenza vaccination Influenza Vacc ine (#1) [facility] Comment on above: Postponed from 07/25 (Patient Refused) Start: 03-25-2025 End: 03-25-2025 Patient encounter procedure [facility] Comment on above: Arrived Start: 03-07-2025 End: 03-07-2026 MR Lumbar spine WO contrast MR lumbar spine wo contrast Imaging Routine Lumbosacral spondylosis with radiculopathy Other idiopathic scoliosis, thoracolumbar region Lumbar disc narrowing Expected: 03/07/2025 (Approximate), Expires: 03/07/2026 [facility] Work Phone: Comment on above: Expected: 03/07/2025 (Approximate), Expires: 03/07/2026 Start: 03-07-2025 End: 03-07-2025 Patient encounter procedure [facility] Comment on above: Arrived Start: 02-18-2025 End: 02-18-2026 Creatinine [Mass/volume] in Serum or Plasma Creatinine, Serum Lab Routine Right flank pain, chronic Expected: 02/18/2025 (Approximate), Expires: 02/18/2026 [facility] Comment on above: Expected: 02/18/2025 (Approximate), Expires: 02/18/2026 Start: 02-18-2025 End: 02-18-2026 CT Abdomen and Pelvis W contrast IV CT abdomen pelvis w IV contrast Imaging Routine Right flank pain, chronic Expected: 02/18/2025 (Approximate), Expires: 02/18/2026 [facility] Work Phone: Comment on above: [...] malign ant neoplasm of breast Mammogram [facility] Comment on above: Postponed from 05/13 (Patient Refused) Start: 08-20-2024 End: 08-20-2025 CBC W Auto Differential panel - Blood CBC and differential Lab Routine Medicare annual wellness visit, subsequent Primary hypertension (CMS/HCC) Expected: 08/20/2024 (Approximate), Expires: 08/20/2025 [facility] Work Phone: Comment on above: Expected: 08/20/2024 (Approximate), Expires: 08/20/2025 Start: 08-20-2024 End: 08-20-2025 Comprehensive metabolic 2000 panel - Serum or Plasma Comprehensive metabolic panel Lab Routine Medicare annual wellness visit, subsequent Primary hypertension (CMS/HCC) Elevated LDL cholesterol level (CMS/HCC) Hypercalcemia Expected: 08/20/2024 (Approximate), Expires: 08/20/2025 [facility] Comment on above: Expected: 08/20/2024 (Approximate), Expires: [...] Ancillary Procedure [facility] [address] [facility] [place] [address] [facility] Start: 08-06-2024 End: 08-06-2024 Patient encounter procedure 08/06/2024 9:30 AM EDT Office Visit [facility] [address] [facility] [address] [place] [address] Blu Kothari MD [address] [facility] [address] [place] [address] [facility] Start: 08-01-2024 Medicare Annual [...] Visit [facility] [address] [facility] [address] [place] [address] Isabel Catherine, YOUTH PROGRAM DIRECTOR [address] [place] [address] Right shoulder pain, unspecified chronicity [facility] Comment on above: Right shoulder pain, unspecified chronicity Start: 07-25-2024 Influenza vaccination Influenza Vacc ine (#1) [facility] Start: 07-21-2024 End: 07-21-2024 Patient encounter procedure 07/21/2024 2:45 PM EDT Office Visit [facility] [address] [facility] [address] [place] [address] Blu Kothari MD [address] [facility] [address] [place] [address] Arrived [facility] Comment on above: Arrived Start: 12-29-2023 End: 12-29-2023 Patient encounter procedure 12/29/2023 3:30 PM EST Office Visit [facility] [address] [facility] [address] [place] [address] Blu Kothari MD [address] [facility] [address] [place] [address] [facility] Start: 06-20-2022 Pneumococcal Vaccine : 65+ Years (2 - PCV) Pneumococcal Vaccine: 65+ Years (2 - PCV) [facility] Start: 06-20-2022 Pneumococcal Vaccine : 65+ Years (2 of 2 - PCV) Pneumococcal Vaccine: 65+ Years (2 of 2 - PCV) [facility] Start: 1995 Screening for malign ant neoplasm of breast Mammogram [facility] Start: 1955 Screening for malign ant neoplasm of colon [facility] Immunizations Immunization Date Immunization Notes Care Provider Fa cili 10-10-2024 Pneumococcal Conjuga te PCV 20 Blu Kothari MD Work Phone: [facility] 10-03-2024 influenza, high dose seasonal, preservative-free Blu Kothari MD Work Phone: [facility] 08-07-2023 Influenza, Seasonal, Quadrivalent, Adjuvanted Blu Kothari MD Work Phone: [facility] 08-07-2023 influenza virus vacc ine, unspecified formulation Blu Kothari MD Work Phone: [facility] 11-10-2022 Influenza, High-dose Seasonal, Quadrivalent, Preservative Free Blu Kothari MD Work Phone: [facility] 03-02-2022 zoster vaccine recombinant Padma Kothari MD Work Phone: [facility] 11-30-2021 zoster vaccine recombinant Padma Kothari MD Work Phone: [facility] 09-04-2021 Influenza, High-dose Seasonal, Quadrivalent, Preservative Free Blu Kothari MD Work Phone: [facility] 06-20-2021 pneumococcal polysaccharide vaccine, 23 valent Blu Kothari MD Work Phone: [facility] 04-05-2021 tetanus toxoid, redu viridiana diphtheria toxoid, and acellular pertussis vaccine, adsorbed Blu Kothari MD Work Phone: [facility] 08-17-2020 Influenza, High-dose Seasonal, Quadrivalent, Preservative Free Blu Kothari MD Work Phone: [facility] Payers Date Payer Category Payer Self-pay 2023 Private Health Insurance [id number] 2023 [facility] [id number] 2022 Medicare [id number] 2022 Medicare [id number] 2022 Medicare [id number] 2022 Unknown [id number] [id number] 1959 Unknown [id number] 1955 Unknown [id number] 2.16.840.1.132799.3.579.2.593 1955 Unknown [id number] 2.16.840.1.516814.3.579.2.1259 1955 Unknown [id number] 2.16.840.1.796542.3.579.2.125 1955 Unknown [id number] 2.16.840.1.523413.3.579.2.1258 1955 Unknown [id number] 2.16.840.1.615662.3.579.2.125 1955 Unknown [id number] 2.16.840.1.054393.3.579.2.1259 1955 Unknown [id number] 2.16.840.1.065555.3.579.2.125 1955 Unknown [id number] 2.16.840.1.419379.3.579.2.1259 1955 Unknown [id number] 2.16.840.1.063317.3.579.2.1259 1955 Unknown [id number] 2.16.840.1.041398.3.579.2.1259 1955 Unknown [id number] 2.16.840.1.952157.3.579.2.125 1955 Unknown [id number] 2.16.840.1.002675.3.579.2.1259 1955 Unknown [id number] 2.16.840.1.509226.3.579.2.1259 1955 Unknown [id number] 2.16.840.1.764034.3.579.2.1259 1955 Unknown [id number] 2.16.840.1.618888.3.579.2.1259 1955 Unknown [id number] 2.16.840.1.785925.3.579.2.1259 1955 Unknown [id number] 2.16.840.1.276692.3.579.2.196 1955 Unknown [id number] 2.16.840.1.065421.3.579.2.196 Private Health Insurance [facility] [id number] Unknown [id number] [id number]1 Social History Date Type Detail Facility Start: 07-03-2023 Tobacco smoking stat [facility] Never smoked tobacco [facility] Start: 07-03-2023 End: 07-27-2024 Tobacco use and exposure Smokeless tobacco non-user [facility] Start: 11-14-2023 End: 07-21-2024 Alcohol intake Ex-drinker (finding) [facility] Start: 08-01-2023 End: 03-25-2025 History of Social function [facility] Start: 08-01-2023 End: 03-25-2025 Tobacco use panel [facility] Start: 07-04-2023 Alcohol Comment caffeine: 1-2 cups per day [facility] Start: 1955 Sex Assigned At Not on file [facility] Start: 07-27-2024 Tobacco smoking stat [facility] Ex-smoker [facility] Work Phone: History of tobacco use Current smoker [facility] History of tobacco use Cigarette Smoker [facility] Start: 08-20-2024 End: 03-25-2025 Alcoholic beverage intake Current drinker of alcohol (finding) [facility] Tobacco smoking stat [facility] Unknown if ever smoked [facility] Work Phone: Start: 03-19-2025 Sex Female (finding) [facility] Start: 1955 Sex Assigned At Female F [facility] Functional Status Date Assessment Result Facility 03-25-2025 Patient Health Quest ionnaire 2 item (PHQ-2) [Reported] [facility] 03-07-2025 Patient Health Quest ionnaire 2 item (PHQ-2) [Reported] [facility] Clinical Notes 12-29-2023 to 03-25-2025 Blu Kothari [...] 8 Multiple Vitamin (Multivitamin Adult) tablet Daily [place]-3 Fatty Acids (Fish Oil) 1000 MG capsule [...] cancer Father Past Medical History: Diagnosis Date 'Nzhwx-jzn-aovxy' with signs of malnutrition Arthritis Cervical spondylolysis [...] Greater than 25 minutes was spent in keco-vc-pvvy consultation and coordination of care. Follow up in about 6 months (around 09/25/2025) for Routine F/U. documented in this encounter [facility] 03-07-2025 History of Presen t illness Narrative [...] 8 Multiple Vitamin (Multivitamin Adult) tablet Daily [place]-3 Fatty Acids (Fish Oil) 1000 MG capsule [...] cancer Father Past Medical History: Diagnosis Date 'Ghtgm-clx-yckns' infant with signs of malnutrition Arthritis Cervical [...] Test/Lab Review. documented in this encounter [facility] 02-18-2025 History of Presen t illness Narrative [...] 8 Multiple Vitamin (Multivitamin Adult) tablet Daily. [place]-3 Fatty Acids (Fish Oil) 1000 MG capsule [...] cancer Father Past Medical History: Diagnosis Date 'Lyfqx-xtq-forzf' with signs of malnutrition Arthritis Cervical spondylolysis [...] Test/Lab Review. documented in this encounter [facility] 01-03-2025 History of Presen t illness Narrative [...] Referral Reason: Specialty Services Required Referral Location: [facility] Scheduling Requested Specialty: Physical Therapy Number of [...] urgent evaluation. documented in this encounter [facility] 12-02-2024 History of Presen t illness Narrative Images from the original note were not included. HISTORY OF PRESENT ILLNESS: POST OP PT Miguel Gonzalez is an 69 y.o. @ female. (EST PT) S/P (R) SHOULDER SCOPE 10/20/24 (6WKS 1DAY) S/P [facility] PHYSICAL THERAPY ORDER (HAS NOT STARTED) HAS NOT STARTED PHYSICAL THERAPY YET ; STATES SHE DOES HAVE THERAPY SCHEDULED @ [facility] 12/06/[address] DRIVE BY THEN OTHERWISE SHE WILL SCHEDULE WITH ZENAIDA AT [facility]. PRESENTS WEARING SLING TODAY, INCORRECTLY. NOTES VERY [...] Referral Reason: Specialty Services Required Referral Location: [facility] Scheduling Requested Specialty: Physical Therapy Number of Visits Requested: 1 ASSESSMENT: ICD-10-CM 1. S/P arthroscopy of right shoulder Z98.890 Ambulatory referral to Physical Therapy S/p rotator cuff repair and SAD Assessment & Plan 1. Post-operative status following right shoulder arthroscopy, rotator cuff repair, and subacromial decompression. She has expressed a preference for outpatient therapy at [facility]. Given her satisfactory passive and active range [...] urgent evaluation. documented in this encounter [facility] 11-04-2024 History of Presen t illness Narrative [...] urgent evaluation. documented in this encounter [facility] 11-04-2024 Instructions MARIYA David - 11/04/2024 1:30 [...] as possible documented in this encounter [facility] 10-19-2024 Telephone encount er Note Post op pain rx. PDMP reviewed [facility] 10-19-2024 Miscellaneous Notes Formattin g of this note might be different from the original. Post op pain rx. PDMP reviewed documented in this encounter [facility] 09-23-2024 History of Presen t illness Narrative Images from the original note were not included. GENERAL HISTORY AND PHYSICAL: NAME: Miguel Gonzalez : 1955 HISTORY OF PRESENT ILLNESS: Miguel Gonzalez is an 69 y.o. @ female. Here for surgery instructions - (R) SHOULDER SCOPE 10/20/2024 @[facility] PAST MEDICAL HISTORY: Past Medical History: Diagnosis Date 'Srwgi-pdt-fufxy' with signs of malnutrition Arthritis Cervical spondylolysis [...] food Multiple Vitamin (Multivitamin Adult) tablet Daily [place]-3 Fatty Acids (Fish Oil) 1000 MG capsule [...] SX INSTRUCTIONS GIVEN TODAY 09/23 @8:30AM - BELLEROSE ULTRASLING GIVEN TODAY ARTHREX NOTIFIED Patient presents [...] Follow up for 11/04 @1:30pm w/aline in [place]. documented in this encounter [facility] 09-15-2024 History of Presen t illness Narrative Images from the original note were not included. HISTORY OF PRESENT ILLNESS: EST PT Miguel Gonzalez is an 69 y.o. @ female. (EST PT) RECHECK (R) SHOULDER ; S/P HEP XRAYS, 07/27/24 IN [facility] MRI 08/11/24 IN [facility] NO MDP / PREDNISONE NO CORTISONE INJ [...] food Multiple Vitamin (Multivitamin Adult) tablet Daily [place]-3 Fatty Acids (Fish Oil) 1000 MG capsule [...] Waite D.O. documented in this encounter [facility] 08-23-2024 Telephone encount er Note Spoke with patient she will see 09/15 for her next scheduled appt. [facility] 08-23-2024 Miscellaneous Notes Formattin g of this note might be different from the original. Spoke with patient she will see 09/15 for her next scheduled appt. Patient left requesting to go ahead and schedule her sx. Please advise [phone]. documented in this encounter [facility] 08-23-2024 Telephone encount er Note Patient left requesting to go ahead and schedule her sx. Please advise [phone]. [facility] 08-20-2024 History of Presen t illness Narrative [...] 3 Multiple Vitamin (Multivitamin Adult) tablet Daily. [place]-3 Fatty Acids (Fish Oil) 1000 MG capsule [...] cancer Father Past Medical History: Diagnosis Date 'Lmrhl-zij-fpotl' with signs of malnutrition Arthritis Cervical spondylolysis [...] shoulder The patient is seeing a medical practice manager for this condition, treatment is deferred to that specialist. Correspondence from that specialist and any available testing were reviewed during today's visit. Follow up in about 3 months (around 11/19/2024) for Medication Follow Up. Electronically signed by Alexia Reid PA-C on August 20, 2024 documented in this encounter [facility] 08-13-2024 History of Presen t illness Narrative HISTORY OF PRESENT ILLNESS: EST PT Miguel Gonzalez is an 69 y.o. @ female. (EST PT ; LAST APPT W/ ISABEL) RECHECK (R) SHOULDER ; HERE FOR MRI RESULTS 08/11/24 IN [facility] XRAYS, 07/27/24 IN [facility] MRI 08/11/24 IN [facility] NO MDP / PREDNISONE NO CORTISONE INJ [...] food Multiple Vitamin (Multivitamin Adult) tablet Daily [place]-3 Fatty Acids (Fish Oil) 1000 MG capsule [...] she states that she is going to [place] in 2 weeks and then her is scheduled to consult at [facility] 09/10 ; patient would like to hold [...] Waite D.O. documented in this encounter [facility] 07-27-2024 History of Presen t illness Narrative [...] MEDICAL HISTORY: Past Medical History: Diagnosis Date 'Nxmub-cvd-qdlhs' infant with signs of malnutrition Arthritis Cervical spondylolysis GERD (gastroesophageal reflux disease) Hypertension (CMS/HCC) Shingles PAST SURGICAL HISTORY: Past Surgical History: Procedure Laterality Date APPENDECTOMY EGD 2013 HYSTERECTOMY IR NERVE BLOCK PROCEDURE Bilateral 09/01/2023 L4-S1 RADIOFREQUENCY ABLATION Bilateral 11/10/2023 L4-S1 TRIGGER FINGER RELEASE Right 2020 RF ALLERGIES: Allergies Allergen Reactions Marcio Inhibitors [...] food Multiple Vitamin (Multivitamin Adult) tablet Daily [place]-3 Fatty Acids (Fish Oil) 1000 MG capsule [...] develop for requiring urgent evaluation. Isabel Catherine, [employer]TRAL SUPPLY TECHNICIAN SUPERVISOR documented in this encounter [facility] 07-21-2024 History of Presen t illness Narrative [...] 3 Multiple Vitamin (Multivitamin Adult) tablet Daily. [place]-3 Fatty Acids (Fish Oil) 1000 MG capsule [...] cancer Father Past Medical History: Diagnosis Date 'Sbqtb-fwr-lmbzs' with signs of malnutrition Arthritis Cervical spondylolysis [...] Previously Scheduled. documented in this encounter [facility] 12-29-2023 Telephone encount er Note sent [facility] 12-29-2023 Miscellaneous Notes Formattin g of this note might be different from the original. sent documented in this encounter [facility] Evaluation note Diagnosis Cervical spondylosis without myelopathy- Primary documented in this encounter [facility]* Diagnosis Internal derangement of right shoulder- Primary documented in this encounter [facility]* Diagnosis Pre-op examination- Primary documented in this encounter [facility]* Diagnosis Internal derangement of right shoulder- Primary documented in this encounter [facility]* Diagnosis S/P arthroscopy of right shoulder- Primary documented in this encounter [facility]* Diagnosis Cervical spondylosis without myelopathy- Primary Age-related osteoporosis without current pathological fracture ([facility]) Primary hypertension ([facility]) Unspecified essential hypertension Gastroesophageal reflux disease without esophagitis Esophageal reflux Lumbosacral spondylosis with radiculopathy Elevated LDL cholesterol level ([facility]) Shoulder capsulitis, right documented in this encounter [facility]* Diagnosis Internal derangement of right shoulder- Primary Right shoulder pain, unspecified chronicity documented in this encounter [facility]* Diagnosis Internal derangement of right shoulder- Primary documented in this encounter [facility]* Diagnosis Medicare annual wellness visit, subsequent- Primary ACP (advance care planning) Other specified counseling Primary insomnia Persistent disorder of initiating or maintaining sleep Lumbosacral spondylosis with radiculopathy Post herpetic neuralgia ([facility]/HCC) Herpes zoster with other nervous system complications Primary hypertension ([facility]) Unspecified essential hypertension Gastroesophageal reflux disease without esophagitis Esophageal reflux Age-related osteoporosis without current pathological fracture ([facility]) Cervical spondylosis without myelopathy Lumbar paraspinal muscle spasm Other symptoms referable to back Overweight (BMI 25.0-29.9) Overweight Elevated LDL cholesterol level ([facility]/HCC) History of hysterectomy Acquired absence of both cervix and uterus Hypercalcemia Other problems related to lifestyle Internal derangement of right shoulder documented in this encounter [facility]* Diagnosis S/P arthroscopy of right shoulder- Primary documented in this encounter [facility]* Diagnosis S/P arthroscopy of right shoulder- Primary documented in this encounter [facility]* Diagnosis Lumbosacral spondylosis with radiculopathy- Primary Right flank pain, chronic documented in this encounter [facility]* Diagnosis Lumbosacral spondylosis with radiculopathy- Primary Right flank pain, chronic Other idiopathic scoliosis, thoracolumbar region Lumbar disc narrowing Degeneration of lumbar or lumbosacral intervertebral disc documented in this encounter [facility] noteNo assessment information availablePome[facility] Work Phone: Evaluation note* Diagnosis Lumbosacral spondylosis with radiculopathy- Primary documented in this encounter [facility] HealthcareReason for referral (narrative)* Consultation (Routine) - Pending Review Specialty Diagnoses / Procedures Referred By Contact Referred To Contact Orthopaedic Surgery Diagnoses Shoulder capsulitis, right Blu Kothari MD [address] [facility] [address] [place] [address] April Mercedes PA [address] [facility] [address] [place] [address] Referral ID Status Reason Start Date Expiration Date Visits Requested Visits Authorized [id number] Pending Review Specialty Services Required 07/21/2024 01/17/2025 1 1 [facility] Healthcare Summary Purpose Family History No Family History Records FoundNo Family History Records FoundNo Family History Records FoundNo Family History Records FoundNo Family History Records FoundNo Family History Records Found Advance Directives No Advanced Directives Records Found Advance Directive Response Recorded Date/ Time Advance Directives No March 17, 025 3:48pm Reason for Referral Specialty Diagnoses / Procedures Referred By Contac t Referred To Contact Radiology Diagnoses Internal derangement of right shoulder Procedures MR shoulder right wo IV contrast Isabel Catherine, [employer] [address] [place] [address] [facility] [address] [place] [address] Referral ID Status Reason Start Date Expiration Date V isits Requested Visits Authorized [id number] Authorized 07/27/2024 01/23/2025 1 1 Chief Complaint and Reason for Visit Chief Complaint Admit Date M47.27 M41.25 M51.369 March 18, 2025 1 0:57am Additional Source Comments INFORMATION SOURCE (unrecogn ized section and content) DATE CREATED AUTHOR 12/29/2020 [facility] DATE CREATED AUTHOR AUTHOR'S ORGANIZ ATION 07/09/2021 [facility] DATE CREATED AUTHOR AUTHOR'S ORGANIZ ATION 02/26/2025 [facility] DATE CREATED AUTHOR AUTHOR'S ORGANIZ ATION 03/30/2025 [facility] DATE CREATED AUTHOR AUTHOR'S ORGANIZ ATION 04/09/2025 [facility] DATE CREATED AUTHOR AUTHOR'S ORGANIZ ATION 06/25/2025 [facility] Reason for Visit (unrecogniz ed section and [...] Care Teams (unrecognized sec tion and content) Cloth Seconds Sorter Relationship Specialty Start Date End Date Blu Kothari MD [address] [facility] [address] [place] [address] PCP - General Internal Medicine 04/01/23 Cloth Seconds Sorter Relationship Specialty Start Date End Date Blu Kothari MD [address] [facility] [address] [place] [address] PCP - General Internal Medicine 04/01/23 Cloth Seconds Sorter Relationship Specialty Start Date End Date Blu Kothari MD [address] [facility] [address] [place] [address] PCP - General Internal Medicine 04/01/23 Cloth Seconds Sorter Relationship Specialty Start Date End Date Blu Kothari MD [address] [facility] [address] [place] [address] PCP - General Internal Medicine 04/01/23 Cloth Seconds Sorter Relationship Specialty Start Date End Date Blu Kothari MD [address] [facility] [address] [place] [address] PCP - General Internal Medicine 04/01/23 Cloth Seconds Sorter Relationship Specialty Start Date End Date Blu Kothari MD [address] [facility] [address] [place] [address] PCP - General Internal Medicine 04/01/23 Cloth Seconds Sorter Relationship Specialty Start Date End Date Blu Kothari MD [address] [facility] [address] [place] [address] PCP - General Internal Medicine 04/01/23 Cloth Seconds Sorter Relationship Specialty Start Date End Date Blu Kothari MD [address] [facility] [address] [place] [address] PCP - General Internal Medicine 04/01/23 Cloth Seconds Sorter Relationship Specialty Start Date End Date Blu Kothari MD [address] [facility] [address] [place] [address] PCP - General Internal Medicine 04/01/23 Cloth Seconds Sorter Relationship Specialty Start Date End Date Blu Kothari MD [address] [facility] [address] [place] [address] PCP - General Internal Medicine 04/01/23 Cloth Seconds Sorter Relationship Specialty Start Date End Date Blu Kothari MD [address] [facility] [address] [place] [address] PCP - General Internal Medicine 04/01/23 Cloth Seconds Sorter Relationship Specialty Start Date End Date Blu Kothari MD [address] [facility] [address] [place] [address] PCP - General Internal Medicine 04/01/23 Cloth Seconds Sorter Relationship Specialty Start Date End Date Blu Kothari MD [address] [facility] [address] [place] [address] PCP - General Internal Medicine 04/01/23 Blu Kothari MD [address] [facility] [address] [place] [address] PCP - ACO Reach 12/31/24 Cloth Seconds Sorter Relationship Specialty Start Date End Date Blu Kothari MD [address] [facility] [address] [place] [address] PCP - General Internal Medicine 04/01/23 Blu Kothari MD [address] [facility] [address] [place] [address] PCP - ACO Reach 12/31/24 Cloth Seconds Sorter Relationship Specialty Start Date End Date Blu Kothari MD [address] [facility] [address] [place] [address] PCP - General Internal Medicine 04/01/23 Blu Kothari MD [address] [facility] [address] [place] [address] PCP - ACO Reach 12/31/24 Cloth Seconds Sorter Relationship Specialty Start Date End Date Blu Kothari MD [address] [facility] [address] [place] [address] PCP - General Internal Medicine 04/01/23 Blu Kothari MD [address] [facility] [address] [place] [address] PCP - ACO Reach 12/31/24 Cloth Seconds Sorter Relationship Specialty Start Date End Date Blu Kothari MD [address] [facility] [address] [place] [address] PCP - General Internal Medicine 04/01/23 Blu Kothari MD [address] [facility] [address] [place] [address] PCP - ACO Reach 12/31/24 Cloth Seconds Sorter Relationship Specialty Start Date End Date Blu Kothari MD [address] [facility] [address] [place] [address] PCP - General Internal Medicine 04/01/23 Blu Kothari MD [address] [facility] [address] [place] [address] PCP - ACO Reach 12/31/24 Team Status: Active Member Role Status Dates Blu Kothari II MD Primary Care Provider Active Team Status: Inactive Member Role Status Dates Blu Kothari II MD Primary Care Provid er, Attending Provider Active Start: March 18, 2025 End: March 18, 2025 Cloth Seconds 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 [facility]. provides no warranty or guarantee of the accuracy or completeness of information in this document.
[2025-07-11 07:09] VITALS: BP 139/79; PULSE 75; TEMP 36.7; O2SAT 100
[2025-07-11 08:01] VITALS: BP 196/91; PULSE 86; O2SAT 100
[2025-07-11 08:02] VITALS: BP 180/81; PULSE 77; O2SAT 97
[2025-07-11] MEDS: BUPIVACAINE HCL 0.25% PF 25 MG/10 ML VIAL 8 ML INJ (08:02)
[2025-07-11] MEDS: LIDOCAINE HCL 2% 400 MG/20 ML MDV INJ (08:02)
--- NOTE | 2025-07-11 08:04 | W.PM.PROCNOT ---
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 An informed consent was obtained and placed on the chart.? The patient was brought to the medical procedure unit and placed in the prone position.? A timeout was completed verifying correct patient, procedure site, positioning, plan, and special equipment.? Using aseptic technique, the needle was placed at left L2. Under direct fluoroscopic visualization a Quincke-tipped spinal needle was advanced to the junction of the superior articulating process with the transverse process at the designated medial branch segment.? Preceded by negative aspiration, the above-mentioned injectate was placed in 1 mL aliquots.? The procedure was repeated at left L3, 4.? The needle was removed and insertion site was covered. The same procedure, at the same levels, was completed on the right side. The patient was taken to the postprocedural recovery area and monitored for an appropriate length of time before found suitable for discharge in the company of a responsible adult. Anesthesia: Local Surgeon: Bouchra Angel Pathology: none sent Condition: stable Disposition: no change
== END 2025-07-11 08:09 | disposition home or self-care (01) ==
PROVIDERS: PCP Internal Medicine; Visit Provider Anesthesiology
DX: M47.816 Spondylosis without myelopathy or radiculopathy, lumbar region (principal); M54.50 Low back pain, unspecified
CPT/HCPCS: 64493; 64494; J0665

== ENCOUNTER 2025-07-14 08:12 | Outpatient (OUT) | payer OTHER, MEDICARE, SELFPAY ==
--- OUTSIDE RECORDS SUMMARY | 2025-07-14 08:17 | XMS_ITS | CCD ---
Author Organization [facility] Care Team Providers Care Ironer Hand Name Role Phone BLU KOTHARI Attending BLU Champagne Consulting BLU Champagne Primary Care BLU Champagne Admitting Blu Champagne MD Primary Care Provider [phone] Blu Kothari MD Unavailable Blu Kothari II Primary Care Provider Blu Kothari II Attending Provider [phone] APRIL MERCEDES Attending BLU Champagne Attending BLU [...] with food. 100 tablet 3 12/29/2023 Active Tarrs-3 Fatty Acids (Fish Oi l) 1000 MG capsule delayed-release (20 sources) Tarrs-3 Fatty Ac ids (Fish Oil) 1000 MG capsule delayed-release Take by mouth Daily Active Tarrs-3 Fatty Ac ids (Fish Oil) 1000 MG capsule delayed-release Take by mouth Daily. Active Tarrs-3 Fatty Ac ids (Fish Oil) 1000 MG [...] wo conon MR lumbar spine wo con [facility] [place] [address] MRI Report Signed Patient: Miguel Gonzalez MR#: [id number] : 1955 Acct:[id number] Age/Sex: 69 / F ADM Date: 03/18/25 Loc: MR Room: Type: [facility] Attending Dr: Blu Kothari II, MD [...] narrowing identified. L2-3: Broad-based disc bulge with wpbu-kr-bhdbrnfb facet arthropathy. Minimal foraminal narrowing. Canal is patent. L3-L4: Circumferential disc bulge with moderate facet arthropathy. Mild neural foraminal narrowing. Minimal central canal stenosis. L4-5: Disc desiccation. Moderate disc facet arthropathy. No significant central canal or neural from narrowing identified. L5-S1: Circumferential disc bulge with moderate facet arthropathy. Moderate right moderate left neural foraminal narrowing. MR/MR lumbar spine wo con IMPRESSION: Fsql-hj-nvhsdafk multilevel degenerative changes without high-grade canal or neural foraminal narrowing. Moderate left neural foraminal narrowing at L5-S1 Impression dictated by: Ever dOonnell M.D. 03/18/2025 3:49 PM Dictation Location: [place] [address] Transcribed By: [facility] 03/18/25 1549 Dictated By: Ever Odonnell MD 03/18/25 1509 Signed By: 03/18/25 1549 Normal [facility] Magnetic resonance imaging r eportOrdered By: Ever Odonnell on 03-18-2025 Study report [facility] [place] [address] MRI Report Signed Patient: Miguel Gonzalez MR#: [id number] : 1955 Acct:[id number] Age/Sex: 69 / F ADM Date: 5 Loc: MR Room: Type: [facility] Attending Dr: Blu Kothari II, MD [...] narrowing identified. L2-3: Broad-based disc bulge with swrl-zq-gajarvit facet arthropathy. Minimal foraminal narrowing. Canal is patent. L3-L4: Circumferential disc bulge with moderate facet arthropathy. Mild neural foraminal narrowing. Minimal central canal stenosis. L4-5: Disc desiccation. Moderate disc facet arthropathy. No significant central canal or neural from narrowing identified. L5-S1: Circumferential disc bulge with moderate facet arthropathy. Moderate right moderate left neural foraminal narrowing. MR/MR lumbar spine wo con IMPRESSION: Gxrz-aq-lexqhrdz multilevel degenerative changes without high-grade canal or neural foraminal narrowing. Moderate left neural foraminal narrowing at L5-S1 Impression dictated by: Ever Odonnell M.D. 03/18/2025 3:49 PM Dictation Location: [place] [address] Transcribed By: [facility] 03/18/25 1549 Dictated By: Ever Odonnell MD 03/18/25 1509 Signed By: 03/18/25 1549 [facility] Work Phone: CT ABDOMEN PELVIS W [...] 02-23-2025 Creatinine [Mass/Vol] 0.55 mg/dL Normal 0.50-1.05 [facility] Comment on above: Performed By: #### 3 75 #### [facility] [address], [address] [place], [place] [address] [facility] Director: Truman Liao MD GFR/1.73 sq M.predicted among non-blacks MDRD (S/P/Bld) [Vol rate/Area] 99 mL/min/{1.73_m2} Normal > OR = 60 [facility] Comment on above: Performed By: #### 3 75 #### [facility] [address] [id number] [facility] Director: Truman Liao MD Urinalysis macro (dipstick) panel (U)on 02-18-2025 Bilirubin, UA Negative Negative - 4(70) +++ mg/dL [facility] Blood, UA Negative Negative - 50 [place]/mcL [facility] Glucose, UA Negative Negative - 2000(110) ++++ mg/dL [facility] Ketones, UA Negative Negative - 160(16) ++++ mg/dL [facility] Leukocytes, UA Negative Negative - 500+++ [place]/mcL [facility] Nitrite, UA Negative Negative - Positive [facility] pH, UA 6.5 5 - 9 [facility] Protein, UA Negative Negative - 2000(20) ++++ mg/dL [facility] Spec Grav, UA 1.005 1 - 1.03 [facility] Urobilinogen, UA 0.2 0.2 - 12 mg/dL [facility] MR SHOULDER RIGHT WO [...] Comment: MRI R T shoulder w/o at [facility]. Orbits if needed. Eval for [...] fracture and/or dislocation. Impression: Unremarkable right shoulder. [facility] XR Shoulder - right 2 ViewsO rdered By: Jr. Waite on 08-02-2024 [facility] Work Phone: XR Shoulder - right 2 Viewso n 07-27-2024 Radiology Study observation (narrative) [facility] Coding Summary.on 04-15-2021 Coding Summary. CD:[id number] Gh 0bWw+PGhlYWQ+DK3STKXzT 16dxNMxdY7EX7rVYK2AGSJ KZOXXKK7SCR2ajJA6OGohG 2VybiAv EqhqqDDjSI69UHk6IZE7wF udVZgjrS2brCJiM9i6IdAr OH09nG79YBcqORWoWnL3Nh ZpbjsgbWFy F4reTyQwxFYtTyi+PHRhYm xlIHdpZHRoPScxMDAlJyBz cRyoCS6uJw8rPHGeWFBtpL xhcHNlOiBj f8gnEJBxPGwgJB5qcKmuL3 SfpJH7TBHam9s0Ia62qZQ+ QDYfWUJ0eTehCQvdd645Or Pdz2usQVX0 tPFeOJsxYER1P76po7C8JB IjSNSqAXO1pHR5aR5woLsy rtnaJ2CcnCLxRpG1NXR5cO NcpZ1jfHny ypiyxU1nEil+W30PJF4WOX YWHP4RYxt3U2TkFwdakAK+ XI77DZEoOU07tFJbuRYsd8 gjdJe2LeLm TEWwYDZ2lKdtTHpyc5ViFZ UrS39wgMPhb6Q0CFFxyYus iSEeLyPybZX4bW7zDSjpux vyc3eqczwd Fmvhf2cmoj02yQ45H62dAD ioCNOoITQ2VYPpQJZyvQyu zg6veU8uXa6+WEnge1xec5 cadNp3EmQc DHGfamVrnMbbEQN6s4FmLx 05C6JxnDmhz2KyWal2xv97 yRRtb0C4zVO8ESjeAXOuzH 8lWEjjLzV8 KNUeQuTimW39xYJcNPdhDk 4nnUbnyKzqRY5iNFIwwdyn VVNdxQ3nZHVtbWLrmXjrBN 4wNTBpbjtm b271SxJdKWB9UUJueBElC1 WhfS5mVkXsXCPpKZHlW8Yk aZYrFVfiG193KFksCiP5SL ArphVwK6Rf NJArzZlsVoR6y1Q5Je9Rs9 UdsbtmUTT9VQsrDGL4TqOq BvAoYuS2Z4DrSde6JWSaeL vlNK2cD8Xm ARLsogaidigfyUO7LJMpDH KzpU20mMWsTSwuKa6yd5P9 r717LWRrHSHcgY42Hp7coU ogMTBwdCBU kO2bzmhws6nfsoplOoKrWY NbYWr6TAt7RGHoeAmwBbXa VGE6HnX7TZA5cQClkC1bwL yanjbicS3s Oyc+B29syH5mSKP0HGS7bb koGXZvblWoKL23WT80B8Fy PjwvdGFibGU+PGRpdiBzdH kxDR8uKkPp a3nav0FlDWsxJ1GjAYLzLO kuCnr0ZUWcOYY8bCO2sJ0i BWMlERvcg9Q5dBV6C2Uaed Fyfa7pe7xf FPWyERyiT95lnSQdg1G1LJ RqwBG4ATKtkSteGoSngG89 Oyc+QQMlaZedf9IkTwbts2 awt9adlXy7 CeWqRXDdjzYfpPptCWW2m5 MrIb02Y89kIUblARUkAYXb BXPaIVMiiImttl6xrG5jIk 8+PGNvbCB3 dAF1hQ4zMIJlUuE0NTafA9 33ZfNknOPvGrwxc4cqk8ad dUi9ImMlCUEttuXbaXeoKP V1d9ZsHi46 X34xEEqmMHWpMHEwDAOtHH FoxSuctr6lxO1uSn2+PC9j k4fatk33mB63wVT+PHRkIH C5hRhcMGud PKRjaX0eCFbbZbB9TTZkHl MtaC39tKLdRVsyYf8lhKdq hPqqYW7aWOPnhpric827Ci Ods4rtXNSb uCTkTFyiYTK3N69sp2B4DE ZlNREdJJD1sWO2gU0prYih bjogbGVmdDsgdmVydGljYW fwJElyG212 IHRvcDsnPlBhdGllbnQgTm DhLJp5S2TkNmq8FOXfzQrk MX2evQTtNIktBw8gwGlboW ncMK6hZDMs mktca405DpUhk5rrINBfhJ NfOWuzYWE5C19jb7B5USZg IKOyDOJ1uNJ7yE0qxFsjpm ogbGVmdDsg tqYdcOahEQoyCDbpB008QW RvcDsnPkJpcnRoIERhdGU6 BB81DV39aYCdd4F8vRM9J0 BhZGRpbmct pkbboAF5JNCkCJOgrQ39Ir 0qlDgaBi5cXJAhKGX2GKBp oAXhU9VhpF2dQsJpMBZcCI ZfO0XxhAMl CGmcB877NJalQyB1SJYuuv PwO6YcNGCewIruNbZ4a1G5 Is8UE2H9AT55UC89mVPcr4 W7tXT8U5Bz GYCedpuednjejAY8LRRcIJ AlbM61Rr7peTlsOz7bBUTp KJV2TXLaxOJbU3GemW5oJc AjMDAwMDAw H4RmsWCyGWfrT818IMppNe O1WVPwdlExB7ZiEKFfbHdq YqD3i1E8Ur7QRFz2ZG65WT 94mJYld7O1 dQG6E8MjIYSnulvxuctthA D4VNPgDORpcT40Lo6rmOyw Wa1aDDXyPPU4GHYfuFWaJ1 JtrK7mNkXd VZXxFEAmQ4VcwPMdJTqnQ7 89KSntBbR5QIJhuwVrF7Ng DBXwkIgmZsX8z8W0Yi6KXE NfTL23YEE3 qUD2KJ65TM90C4CtMchleA FibGU+PHRhYmxlIHdpZHRo IMvpNPWxGxLdjAmuYN5iTi 9yZGVyLWNv xLvjvSPuCiXde6nzINIwWL ouDX2ieGiiR3HveQC9KGWj x9c0Kp71Y79xH0NhkVA+PG QmtIZ4hOW2 oZ7pQsQqJqU6LGktW915Uz YwiHSiAxuay1gxk3gnfQl8 JnL1LWRqxoKnvPgzOKV2l1 VvPv49T26c IHdpZHRoPSIxNSUiIHZhbG bjnd1nkS6jEv4+PGNvbCB3 nVB1nI5zJhTaWxM9QMjqJ3 49InRvcCIv Qcmfp5rnf8hwkXs9KhYbGC ThuiWetKsyMKC0r1EpAt11 B4RetRbro4PmDiv4cp30sA Sxy3B6eSC2 L0HhTNEmzrocvTXltCtuWE 2jLWIrnrybAVUmmA1pBGSg S8m9YwHsJwT7PYgnP0Ebfy E7JKEbjMSc UCcqFQS8Y58kd1B6LDFzNY UtGOA5eHJ7iN2uyJisypkf bGVmdDsgdmVydGljYWwtYW arN556VNCr dFklFIIkaW6jPTVvgDWktL qzZM4gYPBhykppJkgOWYNS RSWWLDAPEYVXJO39PN10jS Gzk6K4gFW7 P3WjKYEdbefjncgzlRV7ZK AjXSLoiF82eCBzXDntEv8u b9M9x205IKRhWGFynZ96Fw 9udDogMTBw oPGEvC3eitqyv8dkruztQe EsERCyVPd0YYj4IUSzyJph PmYfVFU7AjX1MXO9aEEycA 1hbGlnbjog uE8vVgc+MBGfRwVfQZj7KY wvdGQ+JRUhCUD4vVxkNFxm EGVrrI9rMIIpL3b2CdHbFq B5CJriH6Cx RHCnafbsBw29wR7nPhVsHa S0EKriP3MdwdP3LVYsdJJc FMewBGO7T99sq9I2ULSrSL RzZJE8tYH1 wK0uzIcrwbizqJDwfPkltc VfsMpoGLviFTeaY218KXIk gUgwEnM7UZjsBKWnCN11ZP 42yGJpz4T8 fBD6C5BbIGCaobwnsxlngW F5EHEtTOFfqH70nMBxONaw Dg0ia2T0z239HWPeRHWthG 42Wf5pnTeg IILusHBDkZ4hpdwtf5drqf juTcSpIUAiRRx2IUh0HCTg vVapScPkDEZ9DxO7FYW4oN TysB7yqCov grrooE4qVhb+RmVtYWxlPC 29OX31vRJkw5J1hNL5K0Ih SWQksanpsrdziAJ6LDUcCP WoyY97vOZj WLzgIs3gd4G1p923RWVnUT JahV68Pd8beJliRGAenCKC bE2yikqwl5hxskkgKqCoCK KlNTe3RNi3 TRKtuNcoRoIdXLR2EnG5IG U6jWMddW0hhIkelcmqiL7o Oyc+OO1jheanprW6VI74CJ 10E5NcEydy dGFibGU+PHRhYmxlIHdpZH NcMIwbUFIbKrPqqLrpKG1t Jv5qPCPhPGCprChtfHMnId Cbr0ldAKBi AJyyZY8jcXnrU6GjgYQ5DQ Dbj9l2Vy76X93zL5FdkTG+ GCWdbOG1sWQ3lJ6uUdCnQv Z5CRwmR236 OjAizFEoWrksc9xve0ejjE u4RkMyFGPabpVjoRawIKL2 b8AyBk20T97kOSvlHCMvIZ IyMCUiIHZh wXkrrj9orU0kGf1+PGNvbC Y7uSA6aZ7aTlQhEzI4JStb X075NwAhiBUlXsasM97uY8 JvdXA+PHRy Zyv6GTHpaTlaRQ1msITgBW bvKj1qHYP5WqGsHnGgFPgy X1IgYGFnpkdreqmkqWV9US NdJWQfeY96 Il3yxJtjPp7kFRLpVHG1YK QwkFFkU6AqgS0pJcZpTDPi LYPzN1PxrQWgIOykL696AL laCgD0BOKf zgWnI0AvCMAkzMpqSiU1s6 P5Wp4JaFzrsVMdHH3wGnVn LRs6E9IbQpi4PFKdeFjqAK 0ncGFkZGlu Np9dgEuhrObgHS2qXASptl jei195AeEnd9snXLEwfVCs WVtnWEA4G17sx0N9UIWmGQ LwTYQ8dBA9 kR3yrDachvdedZHupJmepc IygLprWNtzVRsqU480ADTy dWamQaQRWhw0P4AcEaj6JY OziZenVN5g rGSlXChpWw6qxRrpwRuaQY 5xGAOegltzr765UiXsg3ch ISPloASsZKphRMH2I99wj4 H2CTAqTOHx KSG4vWK8vY0lbFwzbsoveE VmdDsgdmVydGljYWwtYWxp Z741BIDumDbjNz0MZtg4F8 VaUmv2PFXz kCekUF5nkTIpJRibEy4rpX dcwIwxWU4aYBDezwcvb395 ZoCle6epNJGlnBWqSLpcZW C0G08pb8T0 CLZfHJWmMAE4qAR4aG2lfG lnbjogbGVmdDsgdmVydGlj EMazZPhtV517UVTrlRcqAs BheWVyOjwv dGQ+OG28sp58V7PmLxzxTh m7WVZpGCR2hMY7oR9jCUDr OFaom3K0uMR0Z0MhrmLhmj 9vh4uiFFQa ZTog (more content not included)... Normal [facility] ED Note-Physicianon 04-06-20 ED Note-Physician Basic [...] They are unsure of who the cats owner/photographer is. She states they are unsure whether the cat is up-to-date on its immunizations. She states that her dog is one after the cat, and she attempted to grape picker the cat when the cat turned [...] Appropriate mood & affect. Integumentary: Warm, Dry, [place]. Puncture wounds noted to the left thumb [...] Assessment/Plan 1. Cat bite of left hand (W51.117S: Open bite of left hand, initial encounter) 2. Cat scratch of lower leg (S80.611R: Abrasion, unspecified lower leg, initial encounter) Orders: [...] BLU KOTHARI In 3 days 04/08/[address] [place] [address]- Business (1) Additional Instructions: Wear the splint [...] body noted. Read By: Alexandr Eduardo PA-C [facility] Comment on above: Result Comment: Elec tronically Signed By: Alexandr Eduardo PA-C\.br\Date and Time Signed: 04/05/21 21:31 EDT\.br\Electronically Co-Signed By: Abdoulaye Watson M.D.\.br\Date and Time Co-Signed: 04/06/21 11:28 EDT Animal Bite Investigationon 04-05-2021 Animal Bite Investigation [id number]. 00CD:[address] [facility] Consent for Treatmenton 03-24 Consent for Treatment [id number] 0CD:[address] [facility] Discharge Instructionson Discharge Instructions [id number] .[id number]:[address] [facility] ED Clinical Summaryon 2020 ED Clinical Summary [address] [address] ED Clinical Summary Person Information Name: MIGUEL GONZALEZ [facility] Age: 65 Years : 1955 Sex: Female Language: Citizen Of [place] PCP: BLU KOTHARI MD Marital Status: Visit [...] 04/05/2021 14:46:42 04/05/2021 14:46:42 04/05/2021 14:46:42 ADDRESS: [address] [place] [address] [address] [place] [id number] PHYS DOC NOTES: MEDICAL INFORMATION: Prescriptions Given: [...] Follow up: With: Address: When: [place] [address] Business (1) In 3 days 04/08/2021 Comments: [...] hand; 2:Cat scratch of lower leg Normal [facility] ED Patient Education Noteon 04-05-2021 ED [...] and water are not available, use hand massage therapist. ? Change your dressing as told by [...] bad smell. Medicines ? Take or apply qqej-ofc-vspblrw and prescription medicines only as told by [...] antibiotic medic (more content not included)... Normal [facility] ED Patient Summaryon 021 ED Patient Summary [place] [address] Patient Discharge Instructions Person Information Name: MIGUEL GONZALEZ Age: 65 Years Arrival Date: 04/05/2021 12:55:11 Discharge Diagnosis: 1:Cat bite of left hand; 2:Cat scratch of lower leg Primary Care Physician: DARCY RIVERA, BLU [place] Provider Information Primary Provider: Walter Aguilar, Abdoulaye Herrera Advanced Levi Maker:Alexandr Eduardo PA-C The exam and treatment you received in the Emergency Department were for an urgent problem and are not intended as complete care. It is important that you follow up with a doctor, nurse practitioner, or physician?s assistant manager retail for ongoing care. If your symptoms become worse or you do not improve as expected and you are unable to reach your usual health care provider, you should return to the Emergency Department. We are available 24 hours a day. MIGUEL GONZALEZ has been given the following list of patient education materials, prescriptions and follow-up instructions: Follow-up Instructions: With: Address: When: [place] [address] Business (1) In 3 days 04/08/2021 Comments: [...] opioids can be used to help relieve gddwavvu-ey-wtdjzh pain and are often prescribed following a [...] and Drug (more content not included)... Normal [facility] Vaccinationson 04-05-2021 Vaccinations [id number] .00CD:[address] [facility] XR Finger(s) Min 2 Views Lef [...] M.D. Transcribed by: MAYELIN Technologist: HARRY Neal [facility] Covid-19 PCR (CVDTB)on 11-25 Covid-19 PCR NOT DETECTED Normal NOT DETECTED [facility] Comment on above: Result Comment: This test is not yet approved or cleared by the [place] FDA. When there are no FDA-approved or cleared tests available, and other criteria are met, FDA can make tests available under an emergency access mechanism called an Emergency Use Authorization (EUA). The EUA for this test is supported by the Senior Network Administrator of Health and Human Service's (HHS's) declaration [...] used). Performed By: #### C VDTB #### [facility] [address] [place] [address] Adoretripp Hale EUA Statement SEE BELOW Normal The [facility] Comment on above: Result Comment: This test is not yet approved or cleared by the [place] FDA. When there are no FDA-approved or cleared tests available, and other criteria are met, FDA can make tests available under an emergency access mechanism called an Emergency Use Authorization (EUA). The EUA for this test is supported by the Senior Network Administrator of Health and Human Service?s (HHS?s) declaration [...] SARS-CoV-2. Performed By: #### C VDTBH #### [facility] [address] [place] [address] Adore Hale Vital Signs Date Time Vital Sign Value Performing Clinician Mikala stevens 03-25-2025 08:54-0400 Body height 144.8 cm Blu Kothari MD Work Phone: [facility] 03-25-2025 08:54-0400 Body mass index (BMI) [Ratio] 26.81 kg/m2 Blu Kothari MD Work Phone: [facility] 03-25-2025 08:54-0400 Body weight 56.2 kg Blu Kothari MD Work Phone: [facility] 03-25-2025 08:54-0400 Diastolic blood pressure 102 mm[Hg] Blu Kothari MD Work Phone: [facility] 03-25-2025 08:54-0400 Heart rate 68 /min Blu Kothari MD Work Phone: [facility] 03-25-2025 08:54-0400 Respiratory rate 16 /min Blu Kothari MD Work Phone: [facility] 03-25-2025 08:54-0400 SaO2% (BldA) [Mass fraction] 98 % Blu Kothari MD Work Phone: [facility] 03-25-2025 08:54-0400 Systolic blood pressure 164 mm[Hg] Blu Kothari MD Work Phone: [facility] 03-07-2025 09:18-0400 Body height 144.8 cm Blu Kothari MD Work Phone: [facility] 03-07-2025 09:18-0400 Body mass index (BMI) [Ratio] 26.62 kg/m2 Blu Kothari MD Work Phone: [facility] 03-07-2025 09:18-0400 Body weight 55.79 kg Blu Kothari MD Work Phone: [facility] 03-07-2025 09:18-0400 Diastolic blood pressure 76 mm[Hg] Blu Kothari MD Work Phone: [facility] 03-07-2025 09:18-0400 Heart rate 70 /min Blu Kothari MD Work Phone: [facility] 03-07-2025 09:18-0400 SaO2% (BldA) [Mass fraction] 99 % Blu Kothari MD Work Phone: [facility] 03-07-2025 09:18-0400 Systolic blood pressure 128 mm[Hg] Blu Kothari MD Work Phone: [facility] 02-18-2025 09:04-0400 Body height 144.8 cm Blu Kothari MD Work Phone: [facility] 02-18-2025 09:04-0400 Body mass index (BMI) [Ratio] 26.83 kg/m2 Blu Kothari MD Work Phone: [facility] 02-18-2025 09:04-0400 Body weight 56.25 kg Blu Kothari MD Work Phone: [facility] 02-18-2025 09:04-0400 Diastolic blood pressure 74 mm[Hg] Blu Kothari MD Work Phone: [facility] 02-18-2025 09:04-0400 Heart rate 72 /min Blu Kothari MD Work Phone: [facility] 02-18-2025 09:04-0400 SaO2% (BldA) [Mass fraction] 98 % Blu Kothari MD Work Phone: [facility] 02-18-2025 09:04-0400 Systolic blood pressure 132 mm[Hg] Blu Kothari MD Work Phone: [facility] 09-23-2024 08:16-0400 Body height 144.8 cm April MERAZ Work Phone: [facility] 09-23-2024 08:16-0400 Body mass index (BMI) [Ratio] 25.75 kg/m2 April MERAZ Work Phone: [facility] 09-23-2024 08:16-0400 Body weight 53.98 kg April Mercedes PA Work Phone: [facility] 08-20-2024 08:35-0400 Body height 144.8 cm Alexia Hemmer PA Work Phone: [facility] 08-20-2024 08:35-0400 Body mass index (BMI) [Ratio] 25.92 kg/m2 Alexia Hemmer PA Work Phone: [facility] 08-20-2024 08:35-0400 Body weight 54.34 kg Alexia Hemmer PA Work Phone: [facility] 08-20-2024 08:35-0400 Diastolic blood pressure 86 mm[Hg] Alexia Hemmer PA Work Phone: [facility] 08-20-2024 08:35-0400 Heart rate 70 /min Alexia Hemmer PA Work Phone: [facility] 08-20-2024 08:35-0400 Respiratory rate 16 /min Alexia Hemmer PA Work Phone: [facility] 08-20-2024 08:35-0400 SaO2% (BldA) [Mass fraction] 96 % Alexia Hemmer PA Work Phone: [facility] 08-20-2024 08:35-0400 Systolic blood pressure 138 mm[Hg] Alexia Hemmer PA Work Phone: [facility] 07-27-2024 11:58-0400 Body height 144.8 cm Isabel Catherine [employer]ATIONS [employer]ING Work Phone: [facility] 07-27-2024 11:58-0400 Body mass index (BMI) [Ratio] 25.75 kg/m2 Isabel Catherine NP Work Phone: [facility] 07-27-2024 11:58-0400 Body weight 53.98 kg Isabel Catherine NP Work Phone: [facility] 07-21-2024 14:44-0400 Body height 147.3 cm Blu Kothari MD Work Phone: [facility] 07-21-2024 14:44-0400 Body mass index (BMI) [Ratio] 25.71 kg/m2 Blu Kothari MD Work Phone: [facility] 07-21-2024 14:44-0400 Body weight 55.79 kg Blu Kothari MD Work Phone: [facility] 07-21-2024 14:44-0400 Diastolic blood pressure 80 mm[Hg] Blu Kothari MD Work Phone: [facility] 07-21-2024 14:44-0400 Heart rate 79 /min Blu Kothari MD Work Phone: [facility] 07-21-2024 14:44-0400 SaO2% (BldA) [Mass fraction] 98 % Blu Kothari MD Work Phone: [facility] 07-21-2024 14:44-0400 Systolic blood pressure 130 mm[Hg] Blu Kothari MD Work Phone: [facility] Encounters Encounter Date Encounter Type Care Provider Facility Start: 06-06-2025 End: 06-06-2025 ambulatory Bouchra Angel MD Facility:[facility] Start: 05-02-2025 End: 05-02-2025 ambulatory Bouchra Angel MD Facility:[facility] Start: 03-25-2025 End: 03-25-2025 Bamboo flowsheet [...] Work Phone: [facility] [place] Work Phone: Start: 03-18-2025 End: 03-18-2025 ambulatory Blu Kothari II Work Phone: [facility] Work Phone: Start: 03-07-2025 End: 03-07-2025 Bamboo flowsheet lBu Kothari MD Work Phone: [facility] [...] Start: 10-19-2024 End: 10-19-2024 Refill Isabel Catherine [employer]ATIONS [employer]ING Work Phone: [facility] Comment on above: Internal derangement [...] FM Comment on above: Medicare annual [facility] visit, subsequent (Primary Dx); ACP (advance care planning); Primary insomnia; Lumbosacral spondylosis with radiculopathy; Post herpetic neuralgia (CMS/HCC); Primary hypertension (CMS/HCC); Gastroesophageal reflux disease without esophagitis; Age-related osteoporosis without current pathological fracture (CMS/HCC); Cervical spondylosis without myelopathy; Lumbar paraspinal muscle spasm; Overweight (BMI 25.0-29.9); Elevated LDL cholesterol level ([facility]/HCC); History of hysterectomy; Hypercalcemia; Other problems related [...] Jr. Son Waite DO Work Phone: [facility] Comment on above: Internal derangement of right shoulder (Primary Dx) Start: 08-13-2024 End: 08-13-2024 ambulatory SON MELISSA Not Available Start: 08-11-2024 End: 08-11-2024 ambulatory ISABEL CATHERINE Not Available Start: 07-27-2024 End: 07-27-2024 Bamboo flowsheet Isabel Catherine CHEMICAL OPERATIONS AND TRAINING Work Phone: [facility] Start: 07-27-2024 End: 07-27-2024 Bamboo flowsheet Isabel Catherine CHEMICAL OPERATIONS AND TRAINING Work Phone: [facility] Start: 07-27-2024 End: 07-27-2024 Office outpatient new 30 minutes Isabel Catherine CHEMICAL OPERATIONS AND TRAINING Work Phone: [facility] Comment on above: Internal derangement of right shoulder (Primary Dx); Right shoulder pain, unspecified chronicity Start: 07-27-2024 End: 07-27-2024 ambulatory ISABEL CATHERINE Not Available Start: 07-21-2024 End: 07-21-2024 Office outpatient visit 25 minutes Blu Kothari MD Work Phone: [facility] Comment on above: Cervical spondylosis without myelopathy (Primary Dx); Age-related osteoporosis without current pathological fracture ([facility]/HCC); Primary hypertension ([facility]); Gastroesophageal reflux disease without esophagitis; Lumbosacral spondylosis with radiculopathy; Elevated LDL cholesterol level ([facility]); Shoulder capsulitis, right Start: 07-21-2024 [...] shoulder complete minimum 2 views Isabel Catherine CHEMICAL OPERATIONS AND TRAINING Work Phone: Start: 08-10-2023 H/O: hysterectomy History of hysterectomy Blu Kothari MD Work Phone: H/O: hysterectomy History of hysterectomy Alexia MERAZ Work Phone: Plan of Treatment Date Care Activity Detail Author Start: 07-17-2026 Screening for malign ant neoplasm of colon [facility] Start: 08-20-2025 Medicare Annual Wellness (AWV) Medicare Annual Wellness (AWV) [facility] Start: 05-23-2025 Influenza vaccination Influenza Vacc ine (#1) [facility] Comment on above: Postponed from 07/25 (Patient Refused) Start: 03-25-2025 End: 03-25-2025 Patient encounter procedure [facility] Comment on above: Arrived Start: 03-07-2025 End: 03-07-2026 MR Lumbar spine WO contrast MR lumbar spine wo contrast Imaging Routine Lumbosacral spondylosis with radiculopathy Other idiopathic scoliosis, thoracolumbar region Lumbar disc narrowing Expected: 03/07/2025 (Approximate), Expires: 03/07/2026 [facility] Work Phone: Comment on above: Expected: 03/07/2025 (Approximate), Expires: 03/07/2026 Start: 03-07-2025 End: 03-07-2025 Patient encounter procedure [facility] Comment on above: Arrived Start: 02-18-2025 End: 02-18-2026 Creatinine [Mass/volume] in Serum or Plasma Creatinine, Serum Lab Routine Right flank pain, chronic Expected: 02/18/2025 (Approximate), Expires: 02/18/2026 [facility] Comment on above: Expected: 02/18/2025 (Approximate), Expires: 02/18/2026 Start: 02-18-2025 End: 02-18-2026 CT Abdomen and Pelvis W contrast IV CT abdomen pelvis w IV contrast Imaging Routine Right flank pain, chronic Expected: 02/18/2025 (Approximate), Expires: 02/18/2026 [facility] Work Phone: Comment on [...] for malign ant neoplasm of breast Mammogram [facility] Comment on above: Postponed from 05/13 (Patient Refused) Start: 08-20-2024 End: 08-20-2025 CBC W Auto Differential panel - Blood CBC and differential Lab Routine Medicare annual wellness visit, subsequent Primary hypertension (CMS/HCC) Expected: 08/20/2024 (Approximate), Expires: 08/20/2025 [facility] Work Phone: Comment on above: Expected: 08/20/2024 (Approximate), Expires: 08/20/2025 Start: 08-20-2024 End: 08-20-2025 Comprehensive metabolic 2000 panel - Serum or Plasma Comprehensive metabolic panel Lab Routine Medicare annual wellness visit, subsequent Primary hypertension (CMS/HCC) Elevated LDL cholesterol level (CMS/HCC) Hypercalcemia Expected: 08/20/2024 (Approximate), Expires: 08/20/2025 [facility] Comment on above: Expected: 08/20/2024 (Approximate), Expires: [...] Ancillary Procedure [facility] [address] [facility] [place] [address] [facility] Start: 08-06-2024 End: 08-06-2024 Patient encounter procedure 08/06/2024 9:30 AM EDT Office Visit [facility] [address] [facility] [address] [place] [address] Blu Kothari MD [address] [facility] [address] [place] [address] [facility] Start: 08-01-2024 Medicare Annual [...] Visit [facility] [address] [facility] [address] [place] [address] Isabel Catherine, [employer] [address] [place] [address] Right shoulder pain, unspecified chronicity [facility] Comment on above: Right shoulder pain, unspecified chronicity Start: 07-25-2024 Influenza vaccination Influenza Vacc ine (#1) [facility] Start: 07-21-2024 End: 07-21-2024 Patient encounter procedure 07/21/2024 2:45 PM EDT Office Visit [facility] [address] [facility] [address] [place] [address] Blu Kothari MD [address] [facility] [address] [place] [address] Arrived [facility] Comment on above: Arrived Start: 12-29-2023 End: 12-29-2023 Patient encounter procedure 12/29/2023 3:30 PM EST Office Visit [facility] [address] [facility] [address] [place] [address] Blu Kothari MD [address] [facility] [address] [place] [address] [facility] Start: 06-20-2022 Pneumococcal Vaccine : 65+ Years (2 - PCV) Pneumococcal Vaccine: 65+ Years (2 - PCV) [facility] Start: 06-20-2022 Pneumococcal Vaccine : 65+ Years (2 of 2 - PCV) Pneumococcal Vaccine: 65+ Years (2 of 2 - PCV) [facility] Start: 1995 Screening for malign ant neoplasm of breast Mammogram [facility] Start: 1955 Screening for malign ant neoplasm of colon [facility] Immunizations Immunization Date Immunization Notes Care Provider Fa cili 10-10-2024 Pneumococcal Conjuga te PCV 20 Blu Kothari MD Work Phone: [facility] 10-03-2024 influenza, high dose seasonal, preservative-free Blu Kothari MD Work Phone: [facility] 08-07-2023 Influenza, Seasonal, Quadrivalent, Adjuvanted Blu Kothari MD Work Phone: [facility] 08-07-2023 influenza virus vacc ine, unspecified formulation Blu Kothari MD Work Phone: [facility] 11-10-2022 Influenza, High-dose Seasonal, Quadrivalent, Preservative Free Blu Kothari MD Work Phone: [facility] 03-02-2022 zoster vaccine recombinant Padma Kothari MD Work Phone: [facility] 11-30-2021 zoster vaccine recombinant Padma Kothari MD Work Phone: [facility] 09-04-2021 Influenza, High-dose Seasonal, Quadrivalent, Preservative Free Blu Kothari MD Work Phone: [facility] 06-20-2021 pneumococcal polysaccharide vaccine, 23 valent Blu Kothari MD Work Phone: [facility] 04-05-2021 tetanus toxoid, redu viridiana diphtheria toxoid, and acellular pertussis vaccine, adsorbed Blu Kothari MD Work Phone: [facility] 08-17-2020 Influenza, High-dose Seasonal, Quadrivalent, Preservative Free Blu Kothari MD Work Phone: [facility] Payers Date Payer Category Payer Self-pay 2023 Private Health Insurance [id number] 2023 [facility] [id number] 2022 Medicare [id number] 2022 Medicare [id number] 2022 Medicare [id number] 2022 Unknown [id number] [id number] 1959 Unknown [id number] 1955 Unknown [id number] 2.16.840.1.787340.3.579.2.593 1955 Unknown [id number] 2.16.840.1.097952.3.579.2.1259 1955 Unknown [id number] 2.16.840.1.025378.3.579.2.125 1955 Unknown [id number] 2.16.840.1.401472.3.579.2.1258 1955 Unknown [id number] 2.16.840.1.242007.3.579.2.125 1955 Unknown [id number] 2.16.840.1.788972.3.579.2.1259 1955 Unknown [id number] 2.16.840.1.067256.3.579.2.125 1955 Unknown [id number] 2.16.840.1.476726.3.579.2.1259 1955 Unknown [id number] 2.16.840.1.176095.3.579.2.1259 1955 Unknown [id number] 2.16.840.1.466710.3.579.2.1259 1955 Unknown [id number] 2.16.840.1.149723.3.579.2.125 1955 Unknown [id number] 2.16.840.1.893495.3.579.2.1259 1955 Unknown [id number] 2.16.840.1.630949.3.579.2.1259 1955 Unknown [id number] 2.16.840.1.109358.3.579.2.1259 1955 Unknown [id number] 2.16.840.1.524630.3.579.2.1259 1955 Unknown [id number] 2.16.840.1.311758.3.579.2.1259 1955 Unknown [id number] 2.16.840.1.220554.3.579.2.196 1955 Unknown [id number] 2.16.840.1.752535.3.579.2.196 Private Health Insurance [facility] [id number] Unknown [id number] 2.16.840.1.655729.3.579.2.531 Social History Date Type Detail Facility Start: 07-03-2023 Tobacco smoking stat [facility] Never smoked tobacco [facility] Start: 07-03-2023 End: 07-27-2024 Tobacco use and exposure Smokeless tobacco non-user [facility] Start: 11-14-2023 End: 07-21-2024 Alcohol intake Ex-drinker (finding) [facility] Start: 08-01-2023 End: 03-25-2025 History of Social function [facility] Start: 08-01-2023 End: 03-25-2025 Tobacco use panel [facility] Start: 07-04-2023 Alcohol Comment caffeine: 1-2 cups per day [facility] Start: 1955 Sex Assigned At Not on file [facility] Start: 07-27-2024 Tobacco smoking stat [facility] Ex-smoker [facility] Work Phone: History of tobacco use Current smoker [facility] History of tobacco use Cigarette Smoker N [facility] Start: 08-20-2024 End: 03-25-2025 Alcoholic beverage intake Current drinker of alcohol (finding) [facility] Tobacco smoking stat [facility] Unknown if ever smoked [facility] Work Phone: Start: 03-19-2025 Sex Female (finding) [facility] Start: 1955 Sex Assigned At Female [facility] Functional Status Date Assessment Result Facility 03-25-2025 Patient Health Quest ionnaire 2 item (PHQ-2) [Reported] [facility] 03-07-2025 Patient Health Quest ionnaire 2 item (PHQ-2) [Reported] [facility] Clinical Notes 12-29-2023 to 03-25-2025 Blu Kothari [...] 8 Multiple Vitamin (Multivitamin Adult) tablet Daily Tarrs-3 Fatty Acids (Fish Oil) 1000 MG capsule [...] cancer Father Past Medical History: Diagnosis Date 'Qvhfs-owv-wccty' with signs of malnutrition Arthritis Cervical spondylolysis [...] Greater than 25 minutes was spent in lmag-zz-iqpi consultation and coordination of care. Follow up in about 6 months (around 09/25/2025) for Routine F/U. documented in this encounter [facility] 03-07-2025 History of Presen t illness Narrative [...] 8 Multiple Vitamin (Multivitamin Adult) tablet Daily Tarrs-3 Fatty Acids (Fish Oil) 1000 MG capsule [...] cancer Father Past Medical History: Diagnosis Date 'Cvidt-heo-gqulj' infant with signs of malnutrition Arthritis Cervical [...] for Test/Lab Review. documented in this encounter [facility] 02-18-2025 History of Presen t illness Narrative [...] 8 Multiple Vitamin (Multivitamin Adult) tablet Daily. Tarrs-3 Fatty Acids (Fish Oil) 1000 MG capsule [...] cancer Father Past Medical History: Diagnosis Date 'Layzt-iyo-omdom' with signs of malnutrition Arthritis Cervical spondylolysis [...] for Test/Lab Review. documented in this encounter [facility] 01-03-2025 History of Presen t illness Narrative [...] Referral Reason: Specialty Services Required Referral Location: [facility] Scheduling Requested Specialty: Physical Therapy Number [...] requiring urgent evaluation. documented in this encounter [facility] 12-02-2024 History of Presen t illness Narrative Images from the original note were not included. HISTORY OF PRESENT ILLNESS: POST OP PT Miguel Gonzalez is an 69 y.o. @ female. (EST PT) S/P (R) SHOULDER SCOPE 10/20/24 (6WKS 1DAY) S/P [facility] PHYSICAL THERAPY ORDER (HAS NOT STARTED) HAS NOT STARTED PHYSICAL THERAPY YET ; STATES SHE DOES HAVE THERAPY SCHEDULED @ [facility] 12/06/24 IF SHE IS [address] DRIVE BY THEN OTHERWISE SHE WILL SCHEDULE WITH ZENAIDA AT [facility]. PRESENTS WEARING SLING TODAY, INCORRECTLY. NOTES VERY [...] Referral Reason: Specialty Services Required Referral Location: [facility] Scheduling Requested Specialty: Physical Therapy Number of Visits Requested: 1 ASSESSMENT: ICD-10-CM 1. S/P arthroscopy of right shoulder Z98.890 Ambulatory referral to Physical Therapy S/p rotator cuff repair and SAD Assessment & Plan 1. Post-operative status following right shoulder arthroscopy, rotator cuff repair, and subacromial decompression. She has expressed a preference for outpatient therapy at [facility]. Given her satisfactory passive and active range [...] requiring urgent evaluation. documented in this encounter [facility] 11-04-2024 History of Presen t illness Narrative [...] requiring urgent evaluation. documented in this encounter [facility] 11-04-2024 Instructions MARIYA David - 11/04/2024 1:30 [...] soon as possible documented in this encounter [facility] 10-19-2024 Telephone encount er Note Post op pain rx. PDMP reviewed [facility] 10-19-2024 Miscellaneous Notes Formattin g of this note might be different from the original. Post op pain rx. PDMP reviewed documented in this encounter [facility] 09-23-2024 History of Presen t illness Narrative Images from the original note were not included. GENERAL HISTORY AND PHYSICAL: NAME: Miguel Gonzalez : 1955 HISTORY OF PRESENT ILLNESS: Miguel Gonzalez is an 69 y.o. @ female. Here for surgery instructions - (R) SHOULDER SCOPE 10/20/2024 @[facility] PAST MEDICAL HISTORY: Past Medical History: Diagnosis Date 'Uovwr-iso-uksty' with signs of malnutrition Arthritis Cervical spondylolysis [...] food Multiple Vitamin (Multivitamin Adult) tablet Daily Tarrs-3 Fatty Acids (Fish Oil) 1000 MG capsule [...] SX INSTRUCTIONS GIVEN TODAY 09/23 @8:30AM - [place] ULTRASLING GIVEN TODAY ARTHREX NOTIFIED Patient presents [...] Follow up for 11/04 @1:30pm w/aline in [place]. documented in this encounter [facility] 09-15-2024 History of Presen t illness Narrative Images from the original note were not included. HISTORY OF PRESENT ILLNESS: EST PT Miguel Gonzalez is an 69 y.o. @ female. (EST PT) RECHECK (R) SHOULDER ; S/P HEP XRAYS, 07/27/24 IN [facility] MRI 08/11/24 IN [facility] NO MDP / PREDNISONE NO CORTISONE [...] food Multiple Vitamin (Multivitamin Adult) tablet Daily Tarrs-3 Fatty Acids (Fish Oil) 1000 MG capsule [...] Son Waite D.O. documented in this encounter [facility] 08-23-2024 Telephone encount er Note Spoke with patient she will see 09/15 for her next scheduled appt. [facility] 08-23-2024 Miscellaneous Notes Formattin g of this note might be different from the original. Spoke with patient she will see 09/15 for her next scheduled appt. Patient left requesting to go ahead and schedule her sx. Please advise [phone]. documented in this encounter [facility] 08-23-2024 Telephone encount er Note Patient left requesting to go ahead and schedule her sx. Please advise [phone]. [facility] 08-20-2024 History of Presen t illness [...] 3 Multiple Vitamin (Multivitamin Adult) tablet Daily. Tarrs-3 Fatty Acids (Fish Oil) 1000 MG capsule [...] cancer Father Past Medical History: Diagnosis Date 'Vuxhh-epn-vfenp' with signs of malnutrition Arthritis Cervical spondylolysis [...] Do you have a medical power of commonwealth attorney?: Yes Objective : BP 138/86 Pulse [...] shoulder The patient is seeing a medical oncologist for this condition, treatment is deferred to that specialist. Correspondence from that specialist and any available testing were reviewed during today's visit. Follow up in about 3 months (around 11/19/2024) for Medication Follow Up. Electronically signed by Alexia Reid PA-C on August 20, 2024 documented in this encounter [facility] 08-13-2024 History of Presen t illness Narrative HISTORY OF PRESENT ILLNESS: EST PT Miguel Gonzalez is an 69 y.o. @ female. (EST PT ; LAST APPT W/ ISABEL) RECHECK (R) SHOULDER ; HERE FOR MRI RESULTS 08/11/24 IN [facility] XRAYS, 07/27/24 IN [facility] MRI 08/11/24 IN [facility] NO MDP / PREDNISONE NO CORTISONE [...] food Multiple Vitamin (Multivitamin Adult) tablet Daily Tarrs-3 Fatty Acids (Fish Oil) 1000 MG capsule [...] she states that she is going to [place] in 2 weeks and then her is scheduled to consult at [facility] 09/10 ; patient would like to [...] Son [place] D.O. documented in this encounter [facility] 07-27-2024 History of Presen t illness Narrative [...] MEDICAL HISTORY: Past Medical History: Diagnosis Date 'Eszys-xiq-goriw' infant with signs of malnutrition Arthritis Cervical [...] food Multiple Vitamin (Multivitamin Adult) tablet Daily Tarrs-3 Fatty Acids (Fish Oil) 1000 MG capsule [...] develop for requiring urgent evaluation. Isabel Catherine, [employer] documented in this encounter [facility] 07-21-2024 History of Presen t illness Narrative [...] 3 Multiple Vitamin (Multivitamin Adult) tablet Daily. Tarrs-3 Fatty Acids (Fish Oil) 1000 MG capsule [...] cancer Father Past Medical History: Diagnosis Date 'Xzbez-svd-ilzop' with signs of malnutrition Arthritis Cervical spondylolysis [...] As Previously Scheduled. documented in this encounter [facility] 12-29-2023 Telephone encount er Note sent [facility] 12-29-2023 Miscellaneous Notes Formattin g of this note might be different from the original. sent documented in this encounter [facility] Evaluation note Diagnosis Cervical spondylosis without myelopathy- Primary documented in this encounter [facility]* Diagnosis Internal derangement of right shoulder- Primary documented in this encounter [facility]* Diagnosis Pre-op examination- Primary documented in this encounter [facility]* Diagnosis Internal derangement of right shoulder- Primary documented in this encounter [facility]* Diagnosis S/P arthroscopy of right shoulder- Primary documented in this encounter [facility]* Diagnosis Cervical spondylosis without myelopathy- Primary Age-related osteoporosis without current pathological fracture ([facility]) Primary hypertension ([facility]) Unspecified essential hypertension Gastroesophageal reflux disease without esophagitis Esophageal reflux Lumbosacral spondylosis with radiculopathy Elevated LDL cholesterol level ([facility]) Shoulder capsulitis, right documented in this encounter [facility]* Diagnosis Internal derangement of right shoulder- Primary Right shoulder pain, unspecified chronicity documented in this encounter [facility]* Diagnosis Internal derangement of right shoulder- Primary documented in this encounter [facility]* Diagnosis Medicare annual wellness visit, subsequent- Primary ACP (advance care planning) Other specified counseling Primary insomnia Persistent disorder of initiating or maintaining sleep Lumbosacral spondylosis with radiculopathy Post herpetic neuralgia ([facility]/HCC) Herpes zoster with other nervous system complications Primary hypertension ([facility]) Unspecified essential hypertension Gastroesophageal reflux disease without esophagitis Esophageal reflux Age-related osteoporosis without current pathological fracture ([facility]) Cervical spondylosis without myelopathy Lumbar paraspinal muscle spasm Other symptoms referable to back Overweight (BMI 25.0-29.9) Overweight Elevated LDL cholesterol level ([facility]/HCC) History of hysterectomy Acquired absence of both cervix and uterus Hypercalcemia Other problems related to lifestyle Internal derangement of right shoulder documented in this encounter [facility]* Diagnosis S/P arthroscopy of right shoulder- Primary documented in this encounter [facility]* Diagnosis S/P arthroscopy of right shoulder- Primary documented in this encounter [facility]* Diagnosis Lumbosacral spondylosis with radiculopathy- Primary Right flank pain, chronic documented in this encounter [facility]* Diagnosis Lumbosacral spondylosis with radiculopathy- Primary Right flank pain, chronic Other idiopathic scoliosis, thoracolumbar region Lumbar disc narrowing Degeneration of lumbar or lumbosacral intervertebral disc documented in this encounter [facility] HealthcareEvaluation noteNo assessment information availablePromedica [facility] Work Phone: Evaluation note* Diagnosis Lumbosacral spondylosis with radiculopathy- Primary documented in this encounter [facility] HealthcareReason for referral (narrative)* Consultation (Routine) - Pending Review Specialty Diagnoses / Procedures Referred By Contact Referred To Contact Orthopaedic Surgery Diagnoses Shoulder capsulitis, right Blu Kothari MD [address] [facility] [address] [place] [address] April Mercedes PA [address] [facility] [address] [place] [address] Referral ID Status Reason Start Date Expiration Date Visits Requested Visits Authorized [id number] Pending Review Specialty Services Required 07/21/2024 01/17/2025 1 1 [facility] Summary Purpose Family History [...] shoulder right wo IV contrast Isabel Catherine, [employer]ATIONS [employer] [address] [place] [address] [facility] [address] [place] [address] Referral ID Status Reason Start Date Expiration Date V isits Requested Visits Authorized [id number] Authorized 07/27/2024 01/23/2025 1 1 Chief Complaint and Reason for Visit Chief Complaint Admit Date M47.27 M41.25 M51.369 March 18, 2025 1 0:57am Additional Source Comments INFORMATION SOURCE (unrecogn ized section and content) DATE CREATED AUTHOR 12/29/2020 [facility] DATE CREATED AUTHOR AUTHOR'S ORGANIZ ATION 07/09/2021 [facility] DATE CREATED AUTHOR AUTHOR'S ORGANIZ ATION 02/26/2025 [facility] DATE CREATED AUTHOR AUTHOR'S ORGANIZ ATION 03/30/2025 [facility] EPIC DATE CREATED AUTHOR AUTHOR'S ORGANIZ ATION 04/09/2025 [facility] DATE CREATED AUTHOR AUTHOR'S ORGANIZ ATION 06/25/2025 [facility] Reason for Visit (unrecogniz ed section and [...] Care Teams (unrecognized sec tion and content) Ironer Hand Relationship Specialty Start Date End Date Blu Kothari MD [address] [facility] [address] [place] [address] PCP - General Internal Medicine 04/01/23 Ironer Hand Relationship Specialty Start Date End Date Blu Kothari MD [address] [facility] [address] [place] [address] PCP - General Internal Medicine 04/01/23 Ironer Hand Relationship Specialty Start Date End Date Blu Kothari MD [address] [facility] [address] [place] [address] PCP - General Internal Medicine 04/01/23 Ironer Hand Relationship Specialty Start Date End Date Blu Kothari MD [address] [facility] [address] [place] [address] PCP - General Internal Medicine 04/01/23 Ironer Hand Relationship Specialty Start Date End Date Blu Kothari MD [address] [facility] [address] [place] [address] PCP - General Internal Medicine 04/01/23 Ironer Hand Relationship Specialty Start Date End Date Blu Kothari MD [address] [facility] [address] [place] [address] PCP - General Internal Medicine 04/01/23 Ironer Hand Relationship Specialty Start Date End Date Blu Kothari MD [address] [facility] [address] [place] [address] PCP - General Internal Medicine 04/01/23 Ironer Hand Relationship Specialty Start Date End Date Blu Kothari MD [address] [facility] [address] [place] [address] PCP - General Internal Medicine 04/01/23 Ironer Hand Relationship Specialty Start Date End Date Blu Kothari MD [address] [facility] [address] [place] [address] PCP - General Internal Medicine 04/01/23 Ironer Hand Relationship Specialty Start Date End Date Blu Kothari MD [address] [facility] [address] [place] [address] PCP - General Internal Medicine 04/01/23 Ironer Hand Relationship Specialty Start Date End Date Blu Kothari MD [address] [facility] [address] [place] [address] PCP - General Internal Medicine 04/01/23 Ironer Hand Relationship Specialty Start Date End Date Blu Kothari MD [address] [facility] [address] [place] [address] PCP - General Internal Medicine 04/01/23 Ironer Hand Relationship Specialty Start Date End Date Blu Kothari MD [address] [facility] [address] [place] [address] PCP - General Internal Medicine 04/01/23 Blu Kothari MD [address] [facility] [address] [place] [address] PCP - ACO Reach 12/31/24 Ironer Hand Relationship Specialty Start Date End Date Blu Kothari MD [address] [facility] [address] [place] [address] PCP - General Internal Medicine 04/01/23 Blu Kothari MD [address] [facility] [address] [place] [address] PCP - ACO Reach 12/31/24 Ironer Hand Relationship Specialty Start Date End Date Blu Kothari MD [address] [facility] [address] [place] [address] PCP - General Internal Medicine 04/01/23 Blu Kothari MD [address] [facility] [address] [place] [address] PCP - ACO Reach 12/31/24 Ironer Hand Relationship Specialty Start Date End Date Blu Kothari MD [address] [facility] [address] [place] [address] PCP - General Internal Medicine 04/01/23 Blu Kothari MD [address] [place] [address] PCP - ACO Reach 12/31/24 Ironer Hand Relationship Specialty Start Date End Date Blu Kothari MD [address] [place] [address] PCP - General Internal Medicine 04/01/23 Blu Kothari MD [address] [place] [address] PCP - ACO Reach 12/31/24 Ironer Hand Relationship Specialty Start Date End Date Blu Kothari MD [address] [facility] [address] [place] [address] PCP - General Internal Medicine 04/01/23 Blu Kothari MD [address] [facility] [address] [place] [address] PCP - ACO Reach 12/31/24 Team Status: Active Member Role Status Dates Blu Kothari II MD Primary Care Provider Active Team Status: Inactive Member Role Status Dates Blu Kothari II MD Primary Care Provid er, Attending Provider Active Start: March 18, 2025 End: March 18, 2025 Ironer Hand Relationship Specialty Start Date End Date Blu Kothari MD [address] [facility] [address] [place] [address] PCP - General Internal Medicine 04/01/23 Blu Kothari MD [address] [facility] [address] [place] [address] PCP - ACO Reach 12/31/24 Goals (unrecognized [...] BE BASED ON THE PRIMARY CLINICAL RECORDS. [facility]. provides no warranty or guarantee of the accuracy or completeness of information in this document.
--- NOTE | 2025-07-14 08:42 | PM.CN ---
Consult Note: HPI Data of Consult Patient: known to practice within the last 3 years Consult date: 07/14/25 Requesting Physician: Tierney Kohli NP Primary Care Provider: CLAY TAVERAS Consult Narrative Reason for consult: back pain Narrative: Patricia Gonzalez a pleasant 70- year old female with chronic thoracic and lumbar pain presents for evaluation. Pain today 1/10, aching, increasing to 7/10 with standing, walking, housework, activity. pain improved with sitting, lying, hot tub, and sleep. pt currently on mobic 15mg daily and tramadol 50mg PRN through PCP without side effects. continues to engage in HEP without benefit. recently underwent bilateral L2-3 L3-4 MBB #1 with 100% improvement in pain while anesthetized, preop pain up to 10/10 post op pain 0/10 per pt. denies falls/injury since last visit. cc:: CC: Tierney Kohli NP Review of Systems ROS Musculoskeletal Reports: back pain; Denies: extremity pain PFSH PFSH Medical History Low back pain ?M54.50 - Low back pain, unspecified (ICD-10) Osteoarthritis ?M19.90 - Unspecified osteoarthritis, unspecified site (ICD-10) Acid reflux ?K21.9 - Gastro-esophageal reflux disease without esophagitis (ICD-10) High cholesterol ?E78.00 - Pure hypercholesterolemia, unspecified (ICD-10) Hypertension ?I10 - Essential (primary) hypertension (ICD-10) Surgical History History of hysterectomy ?Z90.710 - Acquired absence of both cervix and uterus (ICD-10) History of appendectomy ?Z90.49 - Acquired absence of other specified parts of digestive tract (ICD-10) Social History Smoking status: Former smoker Meds Home Medications and Allergies Home Medications ?Medication ?Instructions ?Recorded ?Confirmed ?Type amlodipine 2.5 mg tablet 2.5 mg PO DAILY 08/04/23 07/11/25 History meloxicam 15 mg tablet 15 mg PO DAILY 08/04/23 07/11/25 History omeprazole 40 mg capsule,delayed 40 mg PO DAILY 08/04/23 07/11/25 History release rosuvastatin 10 mg tablet (Crestor) 10 mg PO DAILY 08/04/23 07/11/25 History alendronate 70 mg tablet mg PO 04/14/25 History tramadol 50 mg tablet mg 04/14/25 History Allergies Allergy/AdvReac Type Severity Reaction Status Date / Time lisinopril Allergy Cough Verified 07/11/25 07:14 Exam Constitutional Documenting provider has reviewed patient's vital signs: yes Common normals: no apparent distress, oriented x3, healthy appearing, alert and well nourished General appearance: cooperative HENMT Common normals: normocephalic, hearing grossly normal bilaterally and moist oral mucous membranes Head and scalp: normocephalic Eye Common normals: PERRL Pupil: PERRL Neck & C-Spine Common normals: full ROM General: normal visual inspection Chest Common normals: inspection of chest normal Respiratory Common normals: normal respiratory effort, no retractions and no use of accessory muscles Back & Pelvis Lumbar spine/lower back: pain with ROM, lumbar spinal tenderness Lumbar spinal tenderness location: L1, L2, L3 and L4 and straight leg raise negative bilaterally Sacroiliac joints: SI joints normal Other: bilateral facet loading positive at L1-4 strength 5/5 in BLE sensation intact BLE Neuro Common normals: oriented x3 Sensorium/orientation: alert Psych Common normals: mental status grossly normal, thought process normal, cooperative, affect normal, speech normal and activity/motor behavior normal Speech: normal speech Thought process: normal thought process Results Additional Findings Additional findings: If on a controlled substance or opioids, I have checked an [place]AR[place] report on this patient and there are no aberrancies noted in the prescribing history.??If on a controlled substance or opioid a drug screen was completed and reviewed within the last year, and if there has not been a drug screen completed we ordered one today to monitor higher risk, state monitored pain medication use. As part of providing excellent, safe, comprehensive care, the following was completed at our patient's visit: 1. A medication reconciliation and review to ensure accurate knowledge of current/active medications, including asking our patients to inform us about any [id number] medications or herbal remedies/nutritional supplements/alternative remedies. 2. A review to specifically ensure our patients have had annual screening for screening for depression, screening for tobacco use, and screening for unhealthy alcohol use. For concerning screenings had a discussion with the patient, provided patient education, and recommended follow-up with primary care provider when appropriate. If patient noted with a risk of falling, they received education on strength, gait, and balance training to prevent future risk of falling. Portions of this note may have been carried over from the previous visit and updated as appropriate. Please note this office utilizes paper charting in addition to the electronic medical record. A list of current medications, vitals, and PMH is available there as the clinical staff outside of myself do not have access to Involver charting during the clinic day operations. As part of providing quality comprehensive care the current medications, vitals, and PMH were reviewed in the paper chart. Assessment and Plan Assessment and Plan (1) Lumbar spondylosis: Assessment and Plan: The patient has had over 3 months of moderate to severe low back pain with functional impairment and inadequate response to conservative care including NSAIDS (unless there are contraindication such as concurrent blood thinners), multiple oral or topical pain medications, and home exercise program/physical therapy.? Patient has completed >6 weeks of guided home exercise program and/or formal physical therapy program without relief of their symptoms.? The Oswestry Disability Index was completed, and the patient scored a 13%.?? We discussed the risks and benefits of the procedure with the patient, and we are NOT planning on using sedation as outlined in the guidelines from Medicare unless there is a documented reason that sedation would be strongly recommended.?? ?The procedure will be completed with fluoroscopic guidance.? prior bilateral L4/5 L5/S1 facet RFA providing >50% improvement ongoing at those levels (2) Sacroiliitis: (3) Myofascial pain: Plan bilateral L2-3 L3-4 facet medial branch block x2 working towards RFA for axial facet mediated low back pain secondary to lumbar facet arthropathy/lumbar spondylosis continue medication management through PCP f/u after each injection
== END 2025-07-14 08:13 | disposition home or self-care (01) ==
LOC: PM 08:12
PROVIDERS: PCP Internal Medicine; Visit Provider Nurse Practitioner
DX: M47.816 Spondylosis without myelopathy or radiculopathy, lumbar region (principal); M46.1 Sacroiliitis, not elsewhere classified; M79.18 Myalgia, other site
CPT/HCPCS: G0463

== ENCOUNTER 2025-08-08 06:44 | Day surgery (SDC) | payer OTHER, MEDICARE, SELFPAY ==
--- OUTSIDE RECORDS SUMMARY | 2025-08-08 06:47 | XMS_ITS | Encounter Summary ---
Author Organization [facility] Address [address] [facility] [place] [address] Care Team Providers Care Can Capper Name Role Phone Blu Kothari MD Primary Care Provider [phone] Blu Kothari MD Unavailable [phone] Encounter Details Date Type Department Care Team (Late Contact Info) Description 09/29/2023 Abstract [facility] [place] [facility] [address] [facility] 110 [place] [address] Blu Kothari MD [address] [facility] 110 [place] [address] Social History Tobacco Use Types Packs/Day Years [...] [facility] [place] [facility] [address] [facility] 110 [place] [phone] Blu Kothari MD [address] [facility] 110 [place] [address] documented as of this encounter Visit Diagnoses Not on filedocumented in this encounter Care Teams Can Capper Relationship Specialty Start Date End Date Blu Kothari MD [address] [facility] [address] [place] [address] PCP - General Internal Medicine 04/01/23 Blu Kothari MD [address] [facility] 110 [place] [address] PCP - ACO Reach 12/31/24 04/26/25 documented as of this encounter
--- OUTSIDE RECORDS SUMMARY | 2025-08-08 06:47 | XMS_ITS | Encounter Summary ---
Author Organization [facility] Address [address] [facility] [place] [address] Care Team Providers Care Sales Order Coordinator Name Role Phone Blu Kothari MD Primary Care Provider [phone] Blu Kothari MD Unavailable [phone] Encounter Details Date Type Department Care Team (Late Contact Info) Description 11/04/2023 Abstract [facility] [place] [facility]tran [address] [facility] 110 [place] [address] Blu Kothari MD [address] [facility] 110 [place] [address] Social History Tobacco Use Types Packs/Day Years [...] Visit [facility] [place] Beltran [address] [facility] 110 [place] [phone] Blu Kothari MD [address] [facility] 110 [place] [address] documented as of this encounter Visit Diagnoses Not on filedocumented in this encounter Care Teams Sales Order Coordinator Relationship Specialty Start Date End Date Blu Kothari MD [address] [facility] [address] [place] [address] PCP - General Internal Medicine 04/01/23 Blu Kothari MD [address] [facility] [address] [place] [address] PCP - ACO Reach 12/31/24 04/26/25 documented as of this encounter
--- OUTSIDE RECORDS SUMMARY | 2025-08-08 06:47 | XMS_ITS | Encounter Summary ---
Author Organization [facility] Address [address] [facility] [place] [address] Care Team Providers Care Analysis Engineer Name Role Phone Blu Kothari MD Primary Care Provider [phone] Blu Kothari MD Unavailable [phone] Encounter Details Date Type Department Care Team (Late Contact Info) Description 09/11/2023 Abstract [facility] [place] [facility]an [address] [facility] [address] [place] [address] Blu Kothari MD [address] [facility] [address] [place] [address] Social History Tobacco Use Types Packs/Day Years [...] Visit [facility] [place] Beltran [address] [facility] 110 [place] [phone] Blu Kothari MD [address] [facility] 110 [place] [address] documented as of this encounter Visit Diagnoses Not on filedocumented in this encounter Care Teams Analysis Engineer Relationship Specialty Start Date End Date Blu Kothari MD [address] [facility] [address] [place] [address] PCP - General Internal Medicine 04/01/23 Blu Kothari MD [address] [facility] [address] [place] [address] PCP - ACO Reach 12/31/24 04/26/25 documented as of this encounter
--- OUTSIDE RECORDS SUMMARY | 2025-08-08 06:47 | XMS_ITS | Encounter Summary ---
Author Organization [facility] Address [address] [facility] [place] [address] Care Team Providers Care Life Enrichment Director Name Role Phone Blu Kothari MD Primary Care Provider [phone] Blu Kothari MD Unavailable [phone] Encounter Details Date Type Department Care Team (Late Contact Info) Description 11/10/2023 Abstract [facility] [place] Beltran [address] [facility] 110 [place] [address] Blu Kothari MD [address] [facility] 110 [place] [address] Social History Tobacco Use Types Packs/Day Years [...] WAY [facility] 110 [place] [address] Blu Kothari MD [address] [facility] 110 [place] [address] documented as of this encounter Visit Diagnoses Not on filedocumented in this encounter Care Teams Life Enrichment Director Relationship Specialty Start Date End Date Blu Kothari MD [address] [facility] [address] [place] [address] PCP - General Internal Medicine 04/01/23 Blu Kothari MD [address] [facility] [address] [place] [address] PCP - ACO Reach 12/31/24 04/26/25 documented as of this encounter
--- OUTSIDE RECORDS SUMMARY | 2025-08-08 06:47 | XMS_ITS | Encounter Summary ---
Author Organization [facility] Address [address] [facility] [place] [address] Care Team Providers Care Nail Technician Name Role Phone Blu Kothari MD Primary Care Provider [phone] Blu Kothari MD Unavailable [phone] Encounter Details Date Type Department Care Team (Late Contact Info) Description 09/01/2023 Abstract [facility] [place] [facility]an [address] [facility] 110 [place] [address] Blu Kothari MD [address] [facility] 110 [place] [address] Social History Tobacco Use Types Packs/Day Years [...] Visit [facility] [place] [facility]tran [address] [facility] 110 [place] [phone] Blu Kothari MD [address] [facility] 110 [place] [address] documented as of this encounter Visit Diagnoses Not on filedocumented in this encounter Care Teams Nail Technician Relationship Specialty Start Date End Date Blu Kothari MD [address] [facility] 110 [place] [address] PCP - General Internal Medicine 04/01/23 Blu Kothari MD [address] [facility] 110 [place] [address] PCP - ACO Reach 12/31/24 04/26/25 documented as of this encounter
--- OUTSIDE RECORDS SUMMARY | 2025-08-08 06:47 | XMS_ITS | Encounter Summary ---
Author Organization [facility] Address [address] [facility] [[email or web address] [place] [address] Care Team Providers Care Instrument Technician Helper Name Role Phone Blu Kothari MD Primary Care Provider [phone] Blu Kothari MD Unavailable [phone] Encounter Details Date Type Department Care Team (Late Contact Info) Description 11/05/2023 Orders Only [facility] [place] [facility]an [address] [facility] [address] [place] [address] A, Unknown Practice [address] [place], [place] [phone] Social History Tobacco Use Types Packs/Day Years [...] [facility] [address] [facility] [address] [place] [address] Blu Kothari MD [address] [facility] [address] [place] [id number] documented as of this encounter Procedures Procedure Name Priority Date/Time Associated Diagnosis Comments ELECTROCARDIOGRAM REPORT Routine 023 8:12 AM EST documented in this encounter Results * Electrocardiogram Report (11/04/2023 8:12 AM EST) us Unknown Practice A IN CLINIC/BEDSIDE ORDERABLES Final Result documented in this encounter Visit Diagnoses Not on filedocumented in this encounter Care Teams Instrument Technician Helper Relationship Specialty Start Date End Date Blu Kothari MD [address] [facility] 110 [place] [address] PCP - General Internal Medicine 04/01/23 Blu Kothari MD [address] [facility] 110 [place] [address] PCP - ACO Reach 12/31/24 04/26/25 documented as of this encounter
--- OUTSIDE RECORDS SUMMARY | 2025-08-08 06:47 | XMS_ITS | Encounter Summary ---
Author Organization [facility] Address [address] [facility] [place] [address] Care Team Providers Care Printing Sales Representative Name Role Phone Blu Kothari MD Primary Care Provider [phone] Blu Kothari MD Unavailable [phone] Encounter Details Date Type Department Care Team (Late Contact Info) Description 11/04/2023 Abstract [facility] [place] [facility]tran [address] [facility] 110 [place] [address] Blu Kothari MD [address] [facility] 110 [place] [address] Social History Tobacco Use Types Packs/Day Years [...] Visit [facility] [place] [facility]tran [address] [facility] 110 [place] [phone] Blu Kothari MD [address] [facility] 110 [place] [address] documented as of this encounter Visit Diagnoses Not on filedocumented in this encounter Care Teams Printing Sales Representative Relationship Specialty Start Date End Date Blu Kothari MD [address] [facility] 110 [place] [address] PCP - General Internal Medicine 04/01/23 Blu Kothari MD [address] [facility] 110 [place] [address] PCP - ACO Reach 12/31/24 04/26/25 documented as of this encounter
--- OUTSIDE RECORDS SUMMARY | 2025-08-08 06:47 | XMS_ITS | Encounter Summary ---
Author Organization [facility] Address [address] [facility] [place] [address] Care Team Providers Care Ballistic Technician Name Role Phone Blu Kothari MD Primary Care Provider [phone] Blu Kothari MD Unavailable [phone] Encounter Details Date Type Department Care Team (Late Contact Info) Description 08/18/2023 Orders Only [facility] [place] Beltran [address] [facility] [address] [place] [address] A, Unknown Practice [address] [place], [place] [phone] Social History Tobacco Use Types Packs/Day Years [...] [facility] [address] [facility] [address] [place] [address] Blu Kothari MD [address] [facility] [address] [place] [id number] documented as of this encounter Procedures Procedure [...] on filedocumented in this encounter Care Teams Ballistic Technician Relationship Specialty Start Date End Date Blu Kothari MD [address] [facility] 110 [place] [address] PCP - General Internal Medicine 04/01/23 Blu Kothari MD [address] [facility] 110 [place] [address] PCP - ACO Reach 12/31/24 04/26/25 documented as of this encounter
--- OUTSIDE RECORDS SUMMARY | 2025-08-08 06:47 | XMS_ITS | Encounter Summary ---
Author Organization [facility] Address [address] [facility] [place] [address] Care Team Providers Care Manager Filter Name Role Phone Blu Kothari MD Primary Care Provider [phone] Blu Kothari MD Unavailable [phone] Encounter Details Date Type Department Care Team (Late Contact Info) Description 12/11/2023 Abstract [facility] [place] Beltran [address] [facility] 110 [place] [address] Blu Kothari MD [address] [facility] 110 [place] [address] Social History Tobacco Use Types Packs/Day Years [...] Visit [facility] [place] Beltran [address] [facility] 110 [place] [phone] Blu Kothari MD [address] [facility] 110 [place] [address] documented as of this encounter Visit Diagnoses Not on filedocumented in this encounter Care Teams Manager Filter Relationship Specialty Start Date End Date Blu Kothari MD [address] [facility] 110 [place] [address] PCP - General Internal Medicine 04/01/23 Blu Kothari MD [address] [facility] 110 [place] [address] PCP - ACO Reach 12/31/24 04/26/25 documented as of this encounter
--- OUTSIDE RECORDS SUMMARY | 2025-08-08 06:47 | XMS_ITS | Encounter Summary ---
Author Organization [facility] Address [address] [facility] [place] [address] Care Team Providers Care Combat Engineer Name Role Phone Blu Kothari MD Primary Care Provider [phone] Blu Kothari MD Unavailable [phone] Encounter Details Date Type Department Care Team (Late Contact Info) Description 08/04/2023 Abstract [facility] [place] Beltran [address] [facility] 110 [place] [address] Blu Kothari MD [address] [facility] 110 [place] [address] Social History Tobacco Use Types Packs/Day Years [...] Visit [facility] [place] Beltran [address] [facility] 110 [place] [phone] Blu Kothari MD [address] [facility] 110 [place] [address] documented as of this encounter Visit Diagnoses Not on filedocumented in this encounter Care Teams Combat Engineer Relationship Specialty Start Date End Date Blu Kothari MD [address] [facility] 110 [place] [address] PCP - General Internal Medicine 04/01/23 Blu Kothari MD [address] [facility] 110 [place] [address] PCP - ACO Reach 12/31/24 04/26/25 documented as of this encounter
--- OUTSIDE RECORDS SUMMARY | 2025-08-08 06:47 | XMS_ITS | Encounter Summary ---
Author Organization [facility] Address [address] [place] [address] Care Team Providers Care Stock Transfer Clerk Name Role Phone Blu Kothari MD Primary Care Provider [phone] Blu Kothari MD Unavailable [phone] Encounter Details Date Type Department Care [...] Family Medince [address] [facility] 110 [place] [address] Blu Kothari MD [address] [facility] 110 [place] [address] documented as of this encounter Procedures Procedure Name Priority Date/Time Associated Diagnosis Comments XR LUMBAR SPINE 6V W BENDING 08/09/2023 6:58 AM EDT documented in this encounter Results * XR LUMBAR SPINE 6V W BENDING (08/09/2023 6:58 AM EDT) Anatomical Region Laterality Modality Other 08/09/2023 6:58 AM EDT Narrative 08/09/2023 6:58 AM EDT [place] [id number] XRay Report Signed Patient: Miguel Gonzalez MR#: [id number] : 1955 Acct:[id number] Age/Sex: 68 / F ADM Date: 08/08/23 Loc: RAD Attending Dr: Non-Staff Physician Lauren Ordering Physician: Physician,Non-Staff Lauren Date of Service: 08/08/23 Procedure(s): XR lumbar spine 6V w bending Accession Number(s): [id number] cc: BLU KOTHARI ; Physician,Non-Staff Lauren [place] [address] Patient Name: MIGUEL GONZALEZ MRN: [id number] date: 1955 Sex: F Assigned Patient Location: [facility] Current Patient Location: Accession/Order Number: [id number] Exam Date: 08/08/2023 09:03 Report Date: 08/09/2023 [...] M.D. Signed By: 08/09/23 0701 DD/ TD/TT: Typing Checker: Procedure Note Radiology, Radiologist, MD - 08/15/2023 The [place] [id number] XRay Report Signed Patient: Miguel Gonzalez LMR#: [id number] : 5Acct:[id number] Age/Sex: 68 / FADM Date: 08/08/23 Loc: KAYA Attending Dr: Non-Staff Physician Lauren Ordering Physician: PhysicianNon-Staff Lauren Date of Service: 08/08/23 Procedure(s): XR lumbar spine 6V w bending Accession Number(s): [id number] cc: BLU KOTHARI ; Physician,VianneyStaff Lauren [place] [address] Patient Name: MIGUEL GONZALEZ MRN: [id number] date: 1955 Sex: F Assigned Patient Location: [facility] Current Patient Location: Accession/Order Number: [id number] Exam Date: 08/08/2023 09:03 Report Date: 08/09/2023 [...] M.D. Signed By:08/09/23 0701 DD/ 0658 TD/TT: Typing Checker: Generic External Data Provider [facility] Final Result documented in this encounter Visit Diagnoses Not on filedocumented in this encounter Care Teams Stock Transfer Clerk Relationship Specialty Start Date End Date Blu Kothari MD [address] [facility] 110 [place] [address] PCP - General Internal Medicine 04/01/23 Blu Kothari MD [address] [facility] 110 [place], [place] [address] PCP - ACO Reach 12/31/24 04/26/25 documented as of this encounter
--- OUTSIDE RECORDS SUMMARY | 2025-08-08 06:47 | XMS_ITS | Encounter Summary ---
Author Organization [facility] Address [address] [facility] [place] [address] Care Team Providers Care Supervisor Electronics Assembly Name Role Phone Blu Kothari MD Primary Care Provider [phone] Encounter Details Date Type Department Care Team (Late Contact Info) Description 07/06/2025 Orders Only [facility] [address] [facility] 110 [place] [address] Valery Guardado LPN [address] [place] [address] Lumbosacral spondylosis with radiculopathy; Other idiopathic scoliosis, thoracolumbar region; Lumbar disc narrowing Social History Tobacco Use Types Packs/Day Years [...] AM EDT Office Visit [facility] [address] [facility] 110 [place] [address] Blu Kothari MD [address] [facility] 110 [place] [address] documented as of this encounter Visit Diagnoses Diagnosis Lumbosacral spondylosis with radiculopathy Other idiopathic scoliosis, thoracolumbar region Lumbar disc narrowing Degeneration of lumbar or lumbosacral intervertebral disc documented in this encounter Additional Health Concerns Assessment Noted Time PHQ-9 Depression Total Score: 0 08/20/20 24 8:00 AM EDT documented as of this encounter Care Teams Supervisor Electronics Assembly Relationship Specialty Start Date End Date Blu Kothari MD 112 [place] [address] PCP - General Internal Medicine 04/01/23 documented as of this encounter
--- OUTSIDE RECORDS SUMMARY | 2025-08-08 06:47 | XMS_ITS | Encounter Summary ---
Author Organization [facility] Address [address] [facility] [place] [address] Care Team Providers Care Seismic Survey Assistant Name Role Phone Blu Kothari MD Primary Care Provider [phone] Blu Kothari MD Unavailable [phone] Encounter Details Date Type Department Care Team (Late Contact Info) Description 08/23/2024 Abstract [facility] Cathie Beltran [address] [facility] 110 [place] [address] Blu Kothari MD [address] [facility] 110 [place] [address] Social History Tobacco Use Types Packs/Day Years [...] Visit [facility] Cath[place] Beltran [address] [facility] 110 [place] [address] Blu Kothari MD [address] [facility] 110 [place] [address] documented as of this encounter Visit Diagnoses Not on filedocumented in this encounter Additional Health Concerns Assessment Noted Time PHQ-9 Depression Total Score: 0 08/20/20 24 8:00 AM EDT documented as of this encounter Care Teams Seismic Survey Assistant Relationship Specialty Start Date End Date Blu Kothari MD [address] [facility] 110 [place] [address] PCP - General Internal Medicine 04/01/23 Blu Kothari MD [address] [facility] 110 [place] [address] PCP - ACO Reach 12/31/24 04/26/25 documented as of this encounter
--- OUTSIDE RECORDS SUMMARY | 2025-08-08 06:47 | XMS_ITS | Encounter Summary ---
Author Organization [facility] Address [address] [facility] [place] [address] Care Team Providers Care Textile Conversion Manager Name Role Phone Blu Kothari MD Primary Care Provider [phone] Blu Kothari MD Unavailable [phone] Encounter Details Date Type Department Care Team (Late Contact Info) Description 07/15/2023 Abstract [facility] Cathie Beltran 112 [facility] 110 [place] [address] Blu Kothari MD [address] [facility] 110 [place] [address] Social History Tobacco Use Types Packs/Day Years [...] Office Visit [facility] [place] Beltran [address] [facility] 110 [place] [address] Blu Kothari MD [address] [facility] 110 [place] [address] documented as of this encounter Visit Diagnoses Not on filedocumented in this encounter Care Teams Textile Conversion Manager Relationship Specialty Start Date End Date Blu Kothari MD [address] [facility] 110 [place] [address] PCP - General Internal Medicine 04/01/23 Blu Kothari MD [address] [facility] 110 [place] [address] PCP - ACO Reach 12/31/24 04/26/25 documented as of this encounter
--- OUTSIDE RECORDS SUMMARY | 2025-08-08 06:47 | XMS_ITS | Encounter Summary ---
Author Organization [facility] Address [address] [facility] [place] [address] Care Team Providers Care Wrapper Dipper Name Role Phone Blu Kothari MD Primary Care Provider [phone] Blu Kothari MD Unavailable [phone] Encounter Details Date Type Department Care Team (Late st Contact Info) Description 12/29/2023 Orders Only [facility] Cath[place] Beltran [address] [facility] 110 [place] [address] A, Unknown Practice [address] [place], [place] [address] Social History Tobacco Use Types Packs/Day Years [...] [place] [address] Blu Kothari MD [address] [facility] [address] [place] [id number] documented as of this encounter Procedures Procedure [...] on filedocumented in this encounter Care Teams Wrapper Dipper Relationship Specialty Start Date End Date Blu Kothari MD [address] [facility] 110 [place] [address] PCP - General Internal Medicine 04/01/23 Blu Kothari MD [address] [facility] 110 [place] [address] PCP - ACO Reach 12/31/24 04/26/25 documented as of this encounter
--- OUTSIDE RECORDS SUMMARY | 2025-08-08 06:47 | XMS_ITS | Clinical Summary ---
Author Organization [employer] [facility] Address [id number] [address] [place] [address] Care Team Providers Care Regional Truck Driver Name Role Phone Blu Kothari MD Primary Care Provider [phone] Allergies No known active allergies Medications rosuvastatin [...] Take 400 Units by mouth daily. Active fgucxtdc-wfly-V A-calcium &mins (THERAGRAN-M) 9 mg iron-400 mcg tablet Take 1 tablet by mouth daily. Active omega 4-rni-ymm-fish oil (FISH OIL) 300-1,000 mg capsule Take [...] on file Insurance [employer] Care Teams Regional Truck Driver Relationship Specialty Start Date End Date Blu Kothari MD 112 [facility] 110 [place] [address] PCP - General Internal Medicine 06/09/20
--- OUTSIDE RECORDS SUMMARY | 2025-08-08 06:47 | XMS_ITS | Encounter Summary ---
Author Organization [facility] Address [address] [facility] [place] [address] Care Team Providers Care Animal Keeper Head Name Role Phone Blu Kothari MD Primary Care Provider [phone] Blu Kothari MD Unavailable [phone] Encounter Details Date Type Department Care Team (Late Contact Info) Description 10/09/2023 Abstract [facility] [place] Beltran [address] [facility] 110 [place] [address] Blu Kothari MD [address] [facility] 110 [place] [address] Social History Tobacco Use Types Packs/Day Years [...] [facility] 110 [place] [address] Blu Kothari MD [address] [facility] 110 [place] [address] documented as of this encounter Visit Diagnoses Not on filedocumented in this encounter Care Teams Animal Keeper Head Relationship Specialty Start Date End Date Blu Kothari MD [address] [facility] 110 [place] [address] PCP - General Internal Medicine 04/01/23 Blu Kothari MD [address] [facility] 110 [place] [address] PCP - ACO Reach 12/31/24 04/26/25 documented as of this encounter
--- OUTSIDE RECORDS SUMMARY | 2025-08-08 06:47 | XMS_ITS | Encounter Summary ---
Author Organization [facility] Address [address] [facility] [place] [address] Care Team Providers Care Nurse Auditor Name Role Phone Blu Kothari MD Primary Care Provider [phone] Blu Kothari MD Unavailable [phone] Encounter Details Date Type Department Care Team (Late st Contact Info) Description 08/15/2023 Clinisync Result Encounter [facility] External Department Unsolicited Blu Kothari MD 112 [facility] 110 [place], [place] [address] Social History Tobacco Use Types Packs/Day Years [...] Office Visit [facility]ermaine Garciae [address] [facility] 110 [place] [address] Blu Kothari MD [address] [facility] 110 [place], [place] [address] documented as of this encounter Procedures Procedure Name Priority Date/Time Associated Diagnosis Comments XR DEXA AXIAL SKELETON 08/15/2023 9:47 AM EDT documented in this encounter Results * XR DEXA AXIAL SKELETON (08/15/2023 9:47 AM EDT) Anatomical Region Laterality Modality Other 08/15/2023 9:47 AM EDT Narrative 08/15/2023 9:47 AM EDT [address] [address] XRay Report Signed Patient: Miguel Gonzalez MR#: [id number] : 1955 Acct:[id number] Age/Sex: 68 / F ADM Date: 08/15/23 Loc: RAD Attending Dr: BLU KOTHARI Ordering Physician: BLU KOTHARI Date of Service: 08/15/23 Procedure(s): XR DEXA axial skeleton Accession Number(s): [id number] cc: BLU KOTHARI [place] [id number] Patient Name: MIGUEL GONZALEZ MRN: [id number] date: 1955 Sex: F Assigned Patient Location: [facility] Current Patient Location: [facility] Accession/Order Number: [id number] Exam Date: 08/15/2023 08:32 Report Date: 08/15/2023 [...] M.D. Signed By: 08/15/23948 DD/ 6 TD/TT: Manager Technical Support: Procedure Note Radiology, Radiologist, MD - 08/15/[address] [address] XRay Report Signed Patient: Miguel Gonzalez LMR#: [id number] : 5Acct:[id number] Age/Sex: 68 / FADM Date: 08/15/23 Loc: RAD Attending Dr: BLU KOTHARI Ordering Physician: BLU KOTHARI Date of Service: 08/15/23 Procedure(s): XR DEXA axial skeleton Accession Number(s): [id number] cc: BLU KOTHARI [place] [id number] Patient Name: MIGUEL GONZALEZ MRN: [id number] date: 1955 Sex: F Assigned Patient Location: [facility] Current Patient Location: [facility] Accession/Order Number: [id number] Exam Date: 08/15/2023 08:32 Report Date: 08/15/2023 [...] Oconnell M.D. Signed By:08/15/23948 DD/ 6 TD/TT: Manager Technical Support: Blu Kothari MD [facility] Final Result documented in this encounter Visit Diagnoses Not on filedocumented in this encounter Care Teams Nurse Auditor Relationship Specialty Start Date End Date Blu Kothari MD [address] [facility] 110 [place] [address] PCP - General Internal Medicine 04/01/23 Blu Kothari MD [address] [facility] 110 [place] [address] PCP - ACO Reach 12/31/24 04/26/25 documented as of this encounter
--- OUTSIDE RECORDS SUMMARY | 2025-08-08 06:47 | XMS_ITS | Clinical Summary ---
Author Organization [facility] Address [address] [address] Care Team Providers Care Bull Bucker Name Role Phone Blu Kothari MD Primary Care Provider [phone] Allergies Active Allergy Reactions Criticality Noted Date Comments Marcio Inhibitors Cough 07/03/2023 Medications cyanocobalamin (Vitamin B-12) 1000 MCG tablet Take 1,000 mcg by mouth Daily Active Multiple Vitamin (Multivitamin Adult) tablet Daily Active CALCIUM-VITAMIN D PO Take by mouth Daily Active Crumpler-3 Fatty Acids (Fish Oil) 1000 MG capsule [...] Encounters Date Type Department Care Team Description 07/06/2025 Orders Only [facility] [address] [facility] 110 [place] [address] Valery Guardado LPN Lumbosacral spondylosis with radiculopathy; Other idiopathic scoliosis, thoracolumbar region; Lumbar disc narrowing from Last 3 Months Immunizations Immunization Administration [...] 9:00 AM EDT Office Visit [facility] 112 [facility] 110 [place] [address] Blu Kothari MD 112 [facility] 110 [place] [address] Health Maintenance Due Date Last Done Comments CT Colonography 1955 Colonoscopy 1955 FIT 1955 FOBT 1955 Sigmoidoscopy 1955 Mammogram 1995 Influenza Vaccine (#1) 2025 4, 08/07/2023, 11/10/2022, Additional history exists Colorectal Cancer Screening 07/17/2026 FIT-DNA 07/17/2026 07/17/2023, 0705/2020, 05/30/2020, Additional history exists Pneumococcal Vaccine: 65+ [...] STL-IMP Negative Negative 07/25/2023 6:26 PM EDT [employer] (CLIA #:[id number]) Comment: NEGATIVE TEST RESULT. A negative Cologuard [...] Puentes et al, N Engl J Med 2014;370(14):4618-0422) The normal value (reference range) for this assay is negative. COLOGUARD RE-SCREENING RECOMMENDATION: Periodic colorectal cancer screening is an important part of preventive healthcare for asymptomatic individuals at average risk for colorectal cancer. Following a negative Cologuard result, the [place] Cancer Society and U.S. Multi-Society Task Force screening guidelines recommend a Cologuard re-screening interval of 3 years. References: [place] Cancer Society Guideline for Colorectal Cancer Screening: https://www.cancer.org/cancer/hqjau-dbfrgx-nwecal/txalbvngl-prymgtvqm-puijxmk/ac s-rec ommendations.html.; Ez DK, Marla CR, Jessica HameedK, Colorectal Cancer Screening: Recommendations for Physicians and Patients from the U.S. Multi-Society Task Force on Colorectal Cancer Screening , Am J Gastroenterology 2017; 112:7307-5636. TEST DESCRIPTION: Composite algorithmic analysis of stool [...] (Jo-Ann Jasso al, N Engl J Med 2014;370(14):2634-3818.) Cologuard may produce a false negative or false positive result (no colorectal cancer or precancerous polyp present at colonoscopy follow up). A negative Cologuard test result does not guarantee the absence of CRC or advanced adenoma (pre-cancer). The current Cologuard screening interval is every 3 years. ([place] Cancer Society and U.S. Multi-Society Task Force). Cologuard performance data in a 10,000 patient pivotal study using colonoscopy as the reference method can be accessed at the following location: www.[employer]/results. Additional description of the Cologuard test process, warnings and precautions can be found at www.cologuard.com. Stool specimen (specimen) 07/17/2023 7:30 PM EDT 07/19/2023 4:57 PM EDT Blu Kothari MD LAB MOLECULAR DIAGNOST[facility] DANA SHAFER Final Result .[employer] (CLIA #:[id number]) [address] [id number], [facility] (CLIA #:[id number]) [address] [id number] from Last 3 Months or Most Recently Relevant to Health Maintenance Insurance [employer] Care Teams Bull Bucker Relationship Specialty Start Date End Date Blu Kothari MD 112 [facility] 110 [place] [address] PCP - General Internal Medicine 04/01/23
--- OUTSIDE RECORDS SUMMARY | 2025-08-08 06:47 | XMS_ITS | Encounter Summary ---
Author Organization [facility] Address [address] [facility] [place] [address] Care Team Providers Care Outpatient Surgery Rn Name Role Phone Blu Kothari MD Primary Care Provider [phone] Blu Kothari MD Unavailable [phone] Encounter Details Date Type Department Care Team (Late Contact Info) Description 02/23/2024 Abstract [facility] Cath[place] Beltran [address] [facility] 110 [place] [address] Blu Kothari MD [address] [facility] 110 [place] [address] Social History Tobacco Use Types Packs/Day Years [...] [address] [facility] 110 [place] [address] Blu Kothari MD [address] [facility] 110 [place] [address] documented as of this encounter Visit Diagnoses Not on filedocumented in this encounter Care Teams Outpatient Surgery Rn Relationship Specialty Start Date End Date Blu Kothari MD [address] [facility] 110 [place] [address] PCP - General Internal Medicine 04/01/23 Blu Kothari MD [address] [facility] 110 [place] [address] PCP - ACO Reach 12/31/24 04/26/25 documented as of this encounter
--- OUTSIDE RECORDS SUMMARY | 2025-08-08 06:47 | XMS_ITS | Encounter Summary ---
Author Organization [facility] Address [address] [facility] [place] [address] Care Team Providers Care Investigative Writer Name Role Phone Blu Kothari MD Primary Care Provider [phone] Blu Kothari MD Unavailable [phone] Encounter Details Date Type Department Care Team (Late Contact Info) Description 07/04/2023 Abstract [facility] Cath[place] Beltran 112 [facility] 110 [place] [address] Blu Kothari MD [address] [facility] 110 [place] [address] Social History Tobacco Use Types Packs/Day Years [...] EDT Office Visit [facility] Cathie Beltran 112 [facility] 110 [place] [address] Blu Kothari MD 112 [facility] 110 [place] [address] documented as of this encounter Visit Diagnoses Not on filedocumented in this encounter Care Teams Investigative Writer Relationship Specialty Start Date End Date Blu Kothari MD [address] [facility] 110 [place] [address] PCP - General Internal Medicine 04/01/23 Blu Kothari MD [address] [facility] 110 [place] [address] PCP - ACO Reach 12/31/24 04/26/25 documented as of this encounter
--- OUTSIDE RECORDS SUMMARY | 2025-08-08 06:47 | XMS_ITS | Encounter Summary ---
Author Organization [facility] Address [address] [facility] [place] [address] Care Team Providers Care Sheet Metal Worker Apprentice Name Role Phone Blu Kothari MD Primary Care Provider [phone] Blu Kothari MD Unavailable [phone] Encounter Details Date Type Department Care [...] Family Medince [address] [place] 110 [place] [address] Blu Kothari MD [address] [facility] 110 [place] [address] documented as of this encounter Procedures Procedure Name Priority Date/Time Associated Diagnosis Comments XR THORACIC SPINE 3V 12/26/2023 11:01 AM EST documented in this encounter Results * XR THORACIC SPINE 3V (12/26/2023 11:01 AM EST) Anatomical Region Laterality Modality Other 12/26/2023 11:0 1 AM EST Narrative 12/26/2023 11:04 [place] [address] XRay Report Signed Patient: MIGUEL GONZALEZ MR#: [id number] : 1955 Acct:[id number] Age/Sex: 68 / F ADM Date: 12/26/23 Loc: RAD Attending Dr: Arline Giordano MANAGER OF NETWORK Ordering Physician: Arline Giordano NP Date of Service: 12/26/23 Procedure(s): XR thoracic spine 3V Accession Number(s): [id number] cc: BLU KOTHARI ; Arline Giordano NP [place] [address] Patient Name: MIGUEL GONZALEZ MRN: [id number] date: 1955 Sex: F Assigned Patient Location: [facility] Current Patient Location: [facility] Accession/Order Number: [id number] Exam Date: 12/26/2023 10:18 Report Date: 12/26/2023 [...] Signed By: 12/26/23 1104 DD/ 1101 TD/TT: Strawberry Grower: Procedure Note Radiology, Radiologist, MD - 12/29/2023 [place] [address] XRay Report Signed Patient: MIGUEL GONZALEZ LMR#: [id number] : 5Acct:[id number] Age/Sex: 68 / FADM Date: 12/26/23 Loc: RAD Attending Dr: Arline Giordano MANAGER OF NETWORK Ordering Physician: Arline Giordano NP Date of Service: 12/26/23 Procedure(s): XR thoracic spine 3V Accession Number(s): [id number] cc: BLU KOTHARI ; Arline Giordano NP The [place] [id number] Patient Name: MIGUEL GONZALEZ MRN: [id number] date: 1955 Sex: F Assigned Patient Location: [facility] Current Patient Location: [facility] Accession/Order Number: [id number] Exam Date: 12/26/2023 10:18 Report Date: 12/26/2023 [...] M.D. Signed By:12/26/23 1104 DD/ 1101 TD/TT: Strawberry Grower: us Generic External Data Provider [facility] Final Result documented in this encounter Visit Diagnoses Not on filedocumented in this encounter Care Teams Sheet Metal Worker Apprentice Relationship Specialty Start Date End Date Blu Kothari MD [address] [facility] 110 [place] [address] PCP - General Internal Medicine 04/01/23 Blu Kothari MD [address] [facility] 110 [place] [address] PCP - ACO Reach 12/31/24 04/26/25 documented as of this encounter
--- OUTSIDE RECORDS SUMMARY | 2025-08-08 06:47 | XMS_ITS | Encounter Summary ---
Author Organization [facility] Address [address] [facility] [address] [place] [address] Care Team Providers Care Proof Sorter Name Role Phone Blu Kothari MD Primary Care Provider [phone] Blu Kothari MD Unavailable [phone] Encounter Details Date Type Department Care Team (Late Contact Info) Description 08/04/2023 Abstract [facility] Cathie Beltran [address] [facility] [address] [place] [address] Blu Kothari MD [address] [facility] [address] [place] [address] Social History Tobacco Use Types Packs/Day Years [...] Visit [facility] Cathie Beltran [address] [facility] [address] [place] [id number] Blu Kothari MD [address] [facility] [address] [place] [address] documented as of this encounter Visit Diagnoses Not on filedocumented in this encounter Care Teams Proof Sorter Relationship Specialty Start Date End Date Blu Kothari MD [address] [facility] [address] [place] [address] PCP - General Internal Medicine 04/01/23 Blu Kothari MD [address] [facility] [address] [place] [address] PCP - ACO Reach 12/31/24 04/26/25 documented as of this encounter
--- OUTSIDE RECORDS SUMMARY | 2025-08-08 06:47 | XMS_ITS | Encounter Summary ---
Author Organization [facility] Address [address] [facility] [place] [address] Care Team Providers Care Furniture Fabricator Name Role Phone Blu Kothari MD Primary Care Provider [phone] Blu Kothari MD Unavailable [phone] Encounter Details Date Type Department Care Team (Late Contact Info) Description 12/03/2023 Abstract [facility] Cathie Beltran [address] [facility] [address] [place] [address] Blu Kothari MD [address] [facility] [address] [place] [address] Social History Tobacco Use Types Packs/Day Years [...] Beltran [address] [facility] [address] [place] [id number] Blu Kothari MD [address] [facility] [address] [place] [address] documented as of this encounter Visit Diagnoses Not on filedocumented in this encounter Care Teams Furniture Fabricator Relationship Specialty Start Date End Date Blu Kothari MD [address] [facility] [address] [place] [address] PCP - General Internal Medicine 04/01/23 Blu Kothari MD [address] [facility] [address] [place] [address] PCP - ACO Reach 12/31/24 04/26/25 documented as of this encounter
--- OUTSIDE RECORDS SUMMARY | 2025-08-08 06:48 | XMS_ITS | CCD ---
Author Organization [facility] Care Team Providers Care Cage Shift Manager Name Role Phone BLU KOTHARI Attending BLU Champagne Consulting BLU Champagne Primary Care BLU Champagne Admitting Blu Champagne MD Primary Care Provider [phone] Blu Kothari MD Unavailable [phone] Blu Kothari II Primary Care Provider lBu Kothari II Attending Provider [phone] APRIL MERCEDES Attending BLU Champagne Attending BLU [...] Primary Care Unavailable Blu Kothari Admitting Unavailable Jeanne RIVERA, Bouchra Giordano Attending [...] with food. 100 tablet 3 12/29/2023 Active [place]-3 Fatty Acids (Fish Oi l) 1000 MG capsule delayed-release (20 sources) [place]-3 Fatty Ac ids (Fish Oil) 1000 MG capsule delayed-release Take by mouth Daily Active [place]-3 Fatty Ac ids (Fish Oil) 1000 MG capsule delayed-release Take by mouth Daily. Active [place]-3 Fatty Ac ids (Fish Oil) 1000 MG [...] Reference Range Facility MR lumbar spine wo [facility] MR lumbar [place] [address] MRI Report Signed Patient: Miguel Gonzalez MR#: [id number] : 1955 Acct:[id number] Age/Sex: 69 / F ADM Date: 03/18/25 Loc: Room: Type: [facility] Attending Dr: Blu Kothari II, MD Copies [...] narrowing identified. L2-3: Broad-based disc bulge with rbad-qe-zarwwbsp facet arthropathy. Minimal foraminal narrowing. Canal is patent. L3-L4: Circumferential disc bulge with moderate facet arthropathy. Mild neural foraminal narrowing. Minimal central canal stenosis. L4-5: Disc desiccation. Moderate disc facet arthropathy. No significant central canal or neural from narrowing identified. L5-S1: Circumferential disc bulge with moderate facet arthropathy. Moderate right moderate left neural foraminal narrowing. MR/MR lumbar spine wo con IMPRESSION: Twib-cz-ibqlnscw multilevel degenerative changes without high-grade canal or neural foraminal narrowing. Moderate left neural foraminal narrowing at L5-S1 Impression dictated by: Ever Odonnell M.D. 03/18/2025 3:49 PM Dictation Location: [place] [address] Transcribed By: [facility] 03/18/25 1549 Dictated By: Ever Odonnell MD 03/18/25 1509 Signed By: 03/18/25 1549 Normal [facility] Magnetic resonance imaging r eportOrdered By: Ever Odonnell on 03-18-2025 Study report [facility] [address] MRI Report Signed Patient: Miguel Gonzalez MR#: [id number] : 1955 Acct:[id number] Age/Sex: 69 / F ADM Date: 5 Loc: MR Room: Type: [facility] Attending Dr: Blu Kothari II, MD Copies [...] narrowing identified. L2-3: Broad-based disc bulge with ptre-sn-usgqyiet facet arthropathy. Minimal foraminal narrowing. Canal is patent. L3-L4: Circumferential disc bulge with moderate facet arthropathy. Mild neural foraminal narrowing. Minimal central canal stenosis. L4-5: Disc desiccation. Moderate disc facet arthropathy. No significant central canal or neural from narrowing identified. L5-S1: Circumferential disc bulge with moderate facet arthropathy. Moderate right moderate left neural foraminal narrowing. MR/MR lumbar spine wo con IMPRESSION: Cljt-aq-ladclmfv multilevel degenerative changes without high-grade canal or neural foraminal narrowing. Moderate left neural foraminal narrowing at L5-S1 Impression dictated by: Ever Odonnell M.D. 03/18/2025 3:49 PM Dictation Location: [place] [address] Transcribed By: [facility] 03/18/25 1549 Dictated By: Ever Odonnell MD 03/18/25 1509 Signed By: 03/18/25 1549 [facility] Work Phone: CT ABDOMEN PELVIS W IV [...] a prominent scoliosis ELECTRONICALLY SIGNED BY: Pérez Corutney, DO Normal Not Available CREATININEon 02-23-2025 Creatinine [Mass/Vol] 0.55 mg/dL Normal 0.50-1.05 [facility] Comment on above: Performed By: #### 3 75 #### [facility] [address], [address] [place] [id number] Baby Sitter: Truman Liao MD GFR/1.73 sq M.predicted among non-blacks MDRD (S/P/Bld) [Vol rate/Area] 99 mL/min/{1.73_m2} Normal > OR = 60 [facility] Comment on above: Performed By: #### 3 75 #### [facility] [address] [id number] Baby Sitter: Truman Liao MD Urinalysis macro (dipstick) panel (U)on 02-18-2025 Bilirubin, UA Negative Negative - 4(70) +++ mg/dL [facility] Blood, UA Negative Negative - 50 Tan/mcL [facility] Glucose, UA Negative Negative - 1999(110) ++++ mg/dL [facility] Ketones, UA Negative Negative - 160(16) ++++ mg/dL [facility] Leukocytes, UA Negative Negative - 500+++ [place]/mcL [facility] Nitrite, UA Negative Negative - Positive [facility] pH, UA 6.5 5 - 9 [facility] Protein, UA Negative Negative - 1999(20) ++++ mg/dL [facility] Spec Grav, UA 1.005 1 - 1.03 [facility] Urobilinogen, UA 0.2 0.2 - 12 mg/dL [facility] SHOULDER RIGHT WO IV [...] Comment: MRI R T shoulder w/o at [facility]. Orbits if needed. Eval for [...] fracture and/or dislocation. Impression: Unremarkable right shoulder. [facility] XR Shoulder - right 2 ViewsO rdered By: Jr. Waite on 08-02-2024 [facility] Should[facility] - right 2 Viewso n 07-27-2024 Radiology Study observation (narrative) [facility] Coding Summary.on 04-15-2021 Coding Summary. CD:[id number] Gh 0bWw+PGhlYWQ+NE1CUAAgG 76moVRemC5IG3mJBB3RZYT HNDXQKA6EJD0mwYE7YQqyA 2VybiAv PaawcGTnFY09TEa4BIF0bK lxQUwzjZ1azRMbC4g3CwCm OZ87gC82XRjrEFMnVkF6Zi ZpbjsgbWFy R1soMbKniKUcTui+PHRhYm xlIHdpZHRoPScxMDAlJyBz zPmiZU3eTx7fAJCoAQWxbE xhcHNlOiBj u8ajJRCvAKgkGP3hpNvrU4 JhcWP3XETrg5k5Pz33pUW+ YDCdOSX7kOqdKVazp649Ns Zsu8ebPVG7 pEYaKQtiQLK8Z10ys4Q1BW HsQIIlMVI0mCY4gO8rbYyr cksnD7BqdSDiHuF4RAG9rP SbpW9goEbe uncfkR7iGal+S30UTP6WUZ VRGG3KQqi0T0DeXjbpmYK+ CV10AGTuMF62vEFmnNGbv1 ttbEl7XbIk SORrQSZ2lZacFArwb5HjCU AaW59ypOSeq7U8ZFAzgDxi fJXwZsZlfGJ0mC7iGJexlj brv7ccuxov Eforf8lopc62tA75M47pBC qtGHSdPMS5EVYdVTAzdZeo lr2nnQ3aXv8+PCcmr7pxu8 vjsLh9OwYz YYYjjpOisCthJYN2w7CcHv 22O9DmyVoyu5DfNgs5yu93 fXUng2Y4dAJ9UYnoPJFlhL 5hVQegDdM1 AAPwBrLcmE09lPZlORpjGy 3zmZylzZqaEU2pLIXwlflu OQUbmM3bUOKfpSMpxOytUJ 4wNTBpbjtm j841OaNkKMS5AGJhzWNrZ3 BwfT9tVfAkJWHxPJFeX4Ti sSFqJUypS713HWhsTuC3WL QybrLaS6Fa PXGvcFqdCrG7l8O0Ny2Rd2 GvskmhDBE9IXhkNJY1GdLn XcAoOlW4U4ArIrx5IIWljT bpNC4tI5Mf BTQbyufipjeapAM3VSAhIW YanK43rZFrQJofIv2wn9C7 k321UYIaPVTbfZ41Bb2veO ogMTBwdCBU bJ7alplgi9wkhgovNcJkOU RcSSv1QMa0FCNhmKakCpFz DOU4WxQ1IEZ2qMXbtH5gdS dngdpwiQ8h Oyc+T66oaD1yQIU4JJS1oc peQLXsyqKlSG01EB01Z1Yx PjwvdGFibGU+PGRpdiBzdH efYF2bNcDy s4vhc5AvBZkyO1YxDNQeLV grQgr7ZDDkYUZ9wVY2xR3p KZHdVUmae0I8iIU3S1Vwfm Uyuh6ku4xy YGNpBCsoJ69tpMXug4U5KR NznVM8ARMdgBwkGyNwxI61 Oyc+UAGqzZxlw6ArLrvio5 paq6lifRg2 CiAhEPMklxZzpLcgVGK0h9 SgRp86F06kXEvrJEGtVGGt QPViYEMxxUaxuh7kkX8fWv 8+PGNvbCB3 lJI3zP8vXDKzLlY3ZQnsW9 23IuVszQXeJkhuq9zmr3ry mPi8ZbNeYNMmbcMqoPrfSS B5p5HvVs56 E29hDUzsSZXkCXHeBMFvIA LokOvxkg0crF0jAd0+PC9j g8btsb51jJ57fEX+PHRkIH A7oLrpXCzm TEVqvK4eUQhjVyY7HLZaKp YsbH20dOYoRFhfSw5jfPvk aBfoGH5bVUGckoshl320Cj Whk7hlIYXz nQSiASqnCBU3Y91km7Z6XE SeSZXuMDQ5zGC3tJ6euZpb bjogbGVmdDsgdmVydGljYW zbEZceX595 IHRvcDsnPlBhdGllbnQgTm EpYPu3S8JeBzt2DYNmqTgg TQ8svMKaWVcsJg3ubDcozF vcDD5gQNGz xvcss183FdGyx4qbEAUccT ZcOZdbRLZ5X99qg8E2EWAa JNMcECO1bBZ1bU5ydPbdvd ogbGVmdDsg ixRdqMpaQFmsLTvkG008AD RvcDsnPkJpcnRoIERhdGU6 RD17UD42rMWji2L7oHL9L2 BhZGRpbmct dorfpOS2AOLrTXWqiA93Ay 6znYufGd5gXHExKCL0ZZGw fZNvV3VfdN9eRcUxRZRdWM BfF0IhvFUe VQvnN300DRizQaN3GVIuha DoT8JwIIAbtXadNrK4y7E4 Co7GE9L0IQ94NF58lRRiu8 V5lLU3W1Gg JOKjtawngocyuAF3HNRnPC GnaB55Tn5bxZtgHo8qQCOo TJW3XMCmxWEnE7EibH5vTy AjMDAwMDAw K9SgbSGoAFddS779BNmaTe O9KWMkllJeV5AlVCJhcKql IfR9k2I3Uj2BYHg9BN35DJ 57lAFjs6D9 dVM0M5ZaUQWkuhvixlrfsE X5BHBdTSCmnI23Vh6wtArc Gi7jSMYhYNV3UFNseUHtX3 QjlJ6fCaMs QIVtDZXwP4KkaFMqDZmyD8 05RIfyKfW8XPUyxoBhG2Ta VJJbyHbdCuA6e8T3Jg9WKT IaIJ23HBR9 rRS8IE16LC56H8AdDabrdX FibGU+PHRhYmxlIHdpZHRo UOvmKZQvHzVljSecBG3lKq 9yZGVyLWNv vIymxNOwXsIfn4cjWYZkYE hwSO7rqDdqN6BerMK3LERa r0a9Ux95F55tI9IivVS+PG EtpIF6bGN4 gJ3qCjDqWpM4WDerJ002Yo MnpRZqImzqg7sqc8steCb9 KgH4DFOhatBnzTuiXRJ4q5 GjOl25W54m IHdpZHRoPSIxNSUiIHZhbG ebos5rxN8uNs2+PGNvbCB3 uUX7tG5qUeXhUyW2TQiaX1 49InRvcCIv Wgbxx1svv7jxwQu8WjYlSE CidsWezWmkZXY8r4XoPg68 P8PwpVcqp0AcCqh0dv31tL Ctw2T2wCJ3 P9TbCSKvkqcfsXWduWwrBV 2aRKEiiusbUOLltL8yQCEx D4f2FjSqHwZ0UEkpD3Bfzd R3FPLacTWl LOqzWJC0W97oe1X9WNItOR IzLRO6lBH9xT9drNvbsxod bGVmdDsgdmVydGljYWwtYW kvS528RLXu mSqjCEZzcS6cKAVhfKRefA dzJL5cPDIcemhqOcpFTSBM BWQISBGDKRZYIA75BX44wR Kka4G6sTR6 X5VyJGEkxxgzikaxkVM1ZE JjCHCbpO31uSXjVXwlIv8s b4G0g968IEZwFMQoeB18Iu 9udDogMTBw dZBSiY5ylasbd5swmddfCa VpIKYfEWk0QUh1KMKxwDsb ZhLgQTB9DrI5XGH5vNIdiM 1hbGlnbjog aU9iPxo+MNZlEnAhQMn1GR wvdGQ+HNSjBSW1cVvpCYdz EZQeeI2pZDUmJ1f1TtCuLn O5VCuoB4Iu UBOvxlwzIx91yU0xAgIeQv S9GKtwR8GciaU6IPPdlTFa REcfYME5Z09ia5K5JGXuHR MmQJQ4mSG0 bG0ifRyalvaczVZjiJgwdk GhsMpmOXfdOAqzI798CJDw qIngRdF5MLfnAYCpTX65IU 22kGQpy5C4 vLR9X8DvSOLfiwesiupfbZ X6WZMgJDNxlJ38lTNcOWko Zi1wg3Y9b064BLDxIYJikH 90Fz8xqPbf LUHqdIYHpY8cxwyol3nkfy fkAlHkSZQmDOx0MVv1VWDt kVryOzNfEBC2LsN1YDO2pM PgrF9hrJym blmtaV1jCam+RmVtYWxlPC 57QE00lPUfl2J8aWY3C9Ot FQFlcekavmgsvGU6DAYiUM UteW26eIXd UNxuAe0kg4G5n680EDSdUH OonQ36Cc3xlJuqOBRghWRG sH4yvgpux5psnmqjHqXnMT NdCNi7KMk8 FXYruNmuLeXeCQJ0YrA7CU C5dSZgxY8wlJombedjtJ5f Oyc+HE7qtiuvjmE2LJ98LR 17I5TxRyqo dGFibGU+PHRhYmxlIHdpZH HzVXdkYDSeUfAfeGmpKU6b Ay1wUVRmILXrsBazpGXaDj Ecw7gsYOBt MDnwIX0raOfzW7ArfCP3DD Fbu3i3Pc07X15oQ9MooZP+ WNKiwNE6zKQ3nJ4wEfNaQo X6XRtcR468 SkYjkQTnTkkwt8gfo7pyaG i6QxNkVWHegnJaxPwkEAW3 c6BcOt14B40kLYvzPVDrAO IyMCUiIHZh pHurwu4kaE3mZm8+PGNvbC F4bMN6lT4qBwAsDuF9RJej Z209EeLpoAJrCvzsP08bR5 JvdXA+PHRy Qsa4MWJnzWhuEB0ksMTpOA noAa8nKMF4LtJbPsKdSAao D7MmXXJernvxpvduiFO8QU RaBVYvvZ21 Fj4qcSgjSe8dGHYhIWI0BJ GrwGUeJ4JarG2dBePgNEUr GVNdE9MwwYFdADbcO023CY kpQiG2GOCz wvUlX0VsJUXywFemBaI5d9 H7Fk4UeYrwlNErUT9gFwCe MNa0J0ZiLnm6ONCxoDegEI 0ncGFkZGlu Vp0hyFyztDlrPV3qPWQnje kgy990EdDxw9rlNLAruLQn VDbfAAW2R89mx8H1EIXiJJ WlJKO3hFS6 cD5mjGbgunknmSLoqOedyy McwSljBWyaYReaG880ELHy vFuhErCIIga3K7ZnEmn3RQ DalQonEC0j tPVhDWlsJe0wdIatuLtdSR 8uKPMfvzkig591QjQco7kf YXVzsYHzIRwrARR7D77my2 U0SIFsSKTl WRQ2vYO6qM9jdBttjjnveK VmdDsgdmVydGljYWwtYWxp L420JOFurBrjWq1BTfc1J4 NaAxe1SFKj mYcaIB2riLRoZQwzNk0dqZ khyGyfVG4jATUnqpglc637 YpVzl6usPVNufPHePLngKJ R6I83gj5C8 KVHvGORiXAZ6zBC4sG7lnP lnbjogbGVmdDsgdmVydGlj QUrkCJrgT734IHSgkSebQw BheWVyOjwv dGQ+AU46bv21Y0OrRytcQl w5CRJhLCN9aPA2aZ4rIIFo FRrrl4D0iIN5T4DfgdCjgg 6wn7svYEIk ZTog (more content not included)... 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 She states they are unsure whether the cat is up-to-date on its immunizations. 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 Integumentary: Warm, Dry, [place]. Puncture wounds noted to the left thumb [...] Assessment/Plan 1. Cat bite of left hand (S61.752A: Open bite of left hand, initial encounter) 2. Cat scratch of lower leg (S80.089K: Abrasion, unspecified lower leg, initial encounter) Orders: [...] KOTHARI In 3 days 04/08/2021 EDT [address] [place] [address]- Business (1) Additional Instructions: Wear the splint [...] body noted. Read By: Alexandr Eduardo PA-C [facility] Comment on above: Result Comment: Elec tronically Signed By: Alexandr Eduardo PA-C\.br\Date and Time Signed: 04/05/21 21:31 EDT\.br\Electronically Co-Signed By: Abdoulaye Watson M.D.\.br\Date and Time Co-Signed: 04/06/21 11:28 EDT Animal Bite Investigationon 04-05-2021 Animal Bite Investigation [id number]. 00CD:127 Normal [facility] Consent for Treatmenton 03-24 Consent for Treatment [id number] 0CD:127 Normal [facility] Discharge Instructionson Discharge Instructions [id number] .00CD:127 Normal [facility] ED Clinical Summaryon 2020 ED Clinical Summary [place] [id number] ED Clinical Summary Person Information Name: MIGUEL GONZALEZ [facility] Age: 65 Years : 1955 Sex: Female Language: Bangladeshi PCP: BLU KOTHARI MD Marital Status: Visit [...] 04/05/2021 14:46:42 04/05/2021 14:46:42 04/05/2021 14:46:42 ADDRESS: [address] [place] [address] [address] [place] [id number] 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 ? Change your dressing as told by [...] bad smell. Medicines ? Take or apply pnwh-acy-irmnqxn and prescription medicines only as told by [...] medic (more content not included)... Normal [facility] ED Patient Summaryon 021 ED Patient Summary [place] [id number] Patient Discharge Instructions Person Information Name: MIGUEL GONZALEZ Age: 65 Years Arrival Date: 04/05/2021 12:55:11 Discharge Diagnosis: 1:Cat bite of left hand; 2:Cat scratch of lower leg Primary Care Physician: BLU KOTHARI MD Provider Information Primary Provider: Abdoulaye Watson M.D. Advanced Log Haul Operator:Alexandr Eduardo PA-C The exam and treatment you received in the Emergency Department were for an urgent problem and are not intended as complete care. It is important that you follow up with a doctor, nurse practitioner, or physician?s operating room assistant for ongoing care. If your symptoms become worse or you do not improve as expected and you are unable to reach your usual health care provider, you should return to the Emergency Department. We are available 24 hours a day. MIGUEL GONZALEZ has been given the following list of patient education materials, prescriptions and follow-up instructions: Follow-up Instructions: With: Address: When: [place] [address] [employer] (1) In 3 days 04/08/2021 Comments: Wear [...] opioids can be used to help relieve zcpfdnhq-ms-mdxvdx pain and are often prescribed following a [...] Drug (more content not included)... Normal [facility] Vaccinationson 04-05-2021 Vaccinations [id number] .00CD:127 Normal [facility] XR Finger(s) Min 2 Views Lef ton [...] Transcribed by: MAYELIN Technologist: HARRY Neal [facility] Covid-19 PCR (CVDTBH)on 11-25 Covid-19 PCR NOT DETECTED Normal NOT DETECTED [facility] Comment on above: Result Comment: This test is not yet approved or cleared by the [place] FDA. When there are no FDA-approved or cleared tests available, and other criteria are met, FDA can make tests available under an emergency access mechanism called an Emergency Use Authorization (EUA). The EUA for this test is supported by the [place] of Health and Human Service's (HHS's) declaration [...] longer be used). Performed By: #### C [facility] #### [facility] [address] [place] [address] Adore Hale EUA Statement SEE BELOW Normal [facility] Comment on above: Result Comment: This test is not yet approved or cleared by the [place] FDA. When there are no FDA-approved or cleared tests available, and other criteria are met, FDA can make tests available under an emergency access mechanism called an Emergency Use Authorization (EUA). The EUA for this test is supported by the [place] of Health and Human Service?s (HHS?s) declaration [...] SARS-CoV-2. Performed By: #### C [facility] #### [facility] [address] [place] [address] Adore Hale Vital Signs Date Time Vital Sign Value Performing Clinician Mikala stevens 03-25-2025 08:54-0400 Body height 144.8 cm Blu Kothari MD Work Phone: [facility] 03-25-2025 08:54-0400 Body mass index (BMI) [Ratio] 26.81 kg/m2 Blu Kothari MD Work Phone: [facility] 03-25-2025 08:54-0400 Body weight 56.2 kg Blu Kothari MD Work Phone: [facility] 03-25-2025 08:54-0400 Diastolic blood pressure 102 mm[Hg] Blu Kothari MD Work Phone: [facility] 03-25-2025 08:54-0400 Heart rate 68 /min Blu Kothari MD Work Phone: [facility] 03-25-2025 08:54-0400 Respiratory rate 16 /min Blu Kothari MD Work Phone: [facility] 03-25-2025 08:54-0400 SaO2% (BldA) [Mass fraction] 98 % Blu Kothari MD Work Phone: [facility] 03-25-2025 08:54-0400 Systolic blood pressure 164 mm[Hg] Blu Kothari MD Work Phone: [facility] 03-07-2025 09:18-0400 Body height 144.8 cm Blu Kothari MD Work Phone: [facility] 03-07-2025 09:18-0400 Body mass index (BMI) [Ratio] 26.62 kg/m2 Blu Kothari MD Work Phone: [facility] 03-07-2025 09:18-0400 Body weight 55.79 kg Blu Kothari MD Work Phone: [facility] 03-07-2025 09:18-0400 Diastolic blood pressure 76 mm[Hg] Blu Kothari MD Work Phone: [facility] 03-07-2025 09:18-0400 Heart rate 70 /min Blu Kothari MD Work Phone: [facility] 03-07-2025 09:18-0400 SaO2% (BldA) [Mass fraction] 99 % Blu Kothari MD Work Phone: [facility] 03-07-2025 09:18-0400 Systolic blood pressure 128 mm[Hg] Blu Kothari MD Work Phone: [facility] 02-18-2025 09:04-0400 Body height 144.8 cm Blu Kothari MD Work Phone: [facility] 02-18-2025 09:04-0400 Body mass index (BMI) [Ratio] 26.83 kg/m2 Blu Kothari MD Work Phone: [facility] 02-18-2025 09:04-0400 Body weight 56.25 kg Blu Kothari MD Work Phone: [facility] 02-18-2025 09:04-0400 Diastolic blood pressure 74 mm[Hg] Blu Kothari MD Work Phone: [facility] 02-18-2025 09:04-0400 Heart rate 72 /min Blu Kothari MD Work Phone: [facility] 02-18-2025 09:04-0400 SaO2% (BldA) [Mass fraction] 98 % Blu Kothari MD Work Phone: [facility] 02-18-2025 09:04-0400 Systolic blood pressure 132 mm[Hg] Blu Kothari MD Work Phone: [facility] 09-23-2024 08:16-0400 Body height 144.8 cm April MERAZ Work Phone: [facility] 09-23-2024 08:16-0400 Body mass index (BMI) [Ratio] 25.75 kg/m2 April MERAZ Work Phone: [facility] 09-23-2024 08:16-0400 Body weight 53.98 kg April Mercedes PA Work Phone: [facility] 08-20-2024 08:35-0400 Body height 144.8 cm Alexia Kohlimer PA Work Phone: [facility] 08-20-2024 08:35-0400 Body mass index (BMI) [Ratio] 25.92 kg/m2 Alexia Hemmer PA Work Phone: [facility] 08-20-2024 08:35-0400 Body weight 54.34 kg Alexia Hemmer PA Work Phone: [facility] 08-20-2024 08:35-0400 Diastolic blood pressure 86 mm[Hg] Alexia Hemmer PA Work Phone: [facility] 08-20-2024 08:35-0400 Heart rate 70 /min Alexia Hemmer PA Work Phone: [facility] 08-20-2024 08:35-0400 Respiratory rate 16 /min Alexia Hemmer PA Work Phone: [facility] 08-20-2024 08:35-0400 SaO2% (BldA) [Mass fraction] 96 % Alexia Hemmer PA Work Phone: [facility] 08-20-2024 08:35-0400 Systolic blood pressure 138 mm[Hg] Alexia Hemmer PA Work Phone: [facility] 07-27-2024 11:58-0400 Body height 144.8 cm Isabel Catherine PLANT PRODUCTION WORKER Work Phone: [facility] 07-27-2024 11:58-0400 Body mass index (BMI) [Ratio] 25.75 kg/m2 Isabel Catherine NP Work Phone: [facility] 07-27-2024 11:58-0400 Body weight 53.98 kg Isabel Catherine NP Work Phone: [facility] 07-21-2024 14:44-0400 Body height 147.3 cm Blu Kothari MD Work Phone: [facility] 07-21-2024 14:44-0400 Body mass index (BMI) [Ratio] 25.71 kg/m2 Blu Kothari MD Work Phone: [facility] 07-21-2024 14:44-0400 Body weight 55.79 kg Blu Kothari MD Work Phone: [facility] 07-21-2024 14:44-0400 Diastolic blood pressure 80 mm[Hg] Blu Kothari MD Work Phone: [facility] 07-21-2024 14:44-0400 Heart rate 79 /min Blu Kothari MD Work Phone: [facility] 07-21-2024 14:44-0400 SaO2% (BldA) [Mass fraction] 98 % Blu Kothari MD Work Phone: [facility] 07-21-2024 14:44-0400 Systolic blood pressure 130 mm[Hg] Blu Kothari MD Work Phone: [facility] Healthcare Encounters Encounter Date Encounter Type Care Provider Facility Start: 07-11-2025 End: 07-11-2025 ambulatory Bouchra Angel MD Facility:[facility] Start: 06-06-2025 End: 06-06-2025 ambulatory [facility] Start: 05-02-2025 End: 05-02-2025 ambulatory Bouchra Angel MD Facility:[facility] Start: 03-25-2025 End: 03-25-2025 Bamboo flowsheet [...] 03-18-2025 End: 03-18-2025 Patient encounter procedure Blu Taye FLYNN Work Phone: [facility] [place] Work Phone: Start: 03-18-2025 End: 03-18-2025 ambulatory Blu Kothari II Work Phone: [facility] Work Phone: Start: 03-07-2025 End: [...] Dx) Start: 01-03-2025 End: 01-03-2025 ambulatory APRIL J MELISSA Not Available Start: 12-02-2024 End: 12-02-2024 Postop follow up visit related to original px April Hameed Mercedes PA Work Phone: [facility] Comment on above: S/P arthroscopy of r ight shoulder (Primary Dx) Start: 12-02-2024 End: 12-02-2024 ambulatory APRIL J MELISSA Not Available Start: 12-02-2024 End: 12-02-2024 Bamboo [...] up visit related to original px April Hameed Mercedes PA Work Phone: [facility] Comment on above: S/P arthroscopy of r ight shoulder (Primary Dx) Start: 11-04-2024 End: 11-04-2024 ambulatory APRIL MERCEDES Not Available Start: 10-19-2024 End: 10-19-2024 Refill sIabel Catherine [employer] Work Phone: [facility] Comment on above: Internal derangement of right shoulder (Primary Dx) Start: 09-23-2024 End: 09-23-2024 Bamboo flowsheet April Mercedes PA Work Phone: [facility] Start: 09-23-2024 End: 09-23-2024 Bamboo flowsheet April Mercedes PA Work Phone: [facility] Start: 09-23-2024 End: 09-23-2024 Patient encounter procedure April Mercedes PA Work Phone: [facility] Comment on above: Pre-op examination ( Primary Dx) Start: 09-23-2024 End: 09-23-2024 Preprocedural examination done April Mercedes PA Work Phone: [facility] Work Phone: Start: 09-23-2024 End: 09-23-2024 ambulatory APRIL MERCEDES Not Available Start: 09-15-2024 End: 09-15-2024 Bamboo flowsheet Jr. Son Guerrero Stepanic DO Work Phone: [facility] Start: 09-15-2024 End: 09-15-2024 Bamboo flowsheet Jr. Son Guerrero Stepanic DO Work Phone: [facility] Start: 09-15-2024 End: 09-15-2024 Office outpatient visit 25 minutes Jr. Son Guerrero Stepmilena DO Work Phone: [facility] Comment on above: Internal derangement of right shoulder (Primary Dx) Start: 09-15-2024 End: 09-15-2024 ambulatory SON MELISSA Not Available Start: 08-23-2024 End: 08-23-2024 Telephone encounter Jr. Son Guerrero Stepmilena DO Work Phone: [facility] Comment on above: Surgery Start: 08-20-2024 End: 08-20-2024 Bamboo flowsheet Alexia MERAZ Work Phone: [facility] Start: 08-20-2024 End: 08-20-2024 Bamboo flowsheet Alexia Nelda Milton MERAZ Work Phone: [facility] Start: 08-20-2024 End: 08-20-2024 Patient encounter procedure Alexia Nelda Milton MERAZ Work Phone: [facility] Comment on above: [facility], subsequent (Primary Dx); ACP (advance care planning); Primary insomnia; Lumbosacral spondylosis with radiculopathy; Post herpetic neuralgia (CMS/HCC); Primary hypertension (CMS/HCC); Gastroesophageal reflux disease without esophagitis; Age-related osteoporosis without current pathological fracture (CMS/HCC); Cervical spondylosis without myelopathy; Lumbar paraspinal muscle spasm; Overweight (BMI 25.0-29.9); Elevated LDL cholesterol level (CMS/HCC); History of hysterectomy; Hypercalcemia; Other problems related to lifestyle; Internal derangement of right shoulder Start: 08-20-2024 End: 08-20-2024 ambulatory ALEXIA REID Not Available Start: 08-13-2024 End: 08-13-2024 Bamshady Waite DO Work Phone: [facility] Start: 08-13-2024 End: 08-13-2024 Bamshady Wiate DO Work Phone: [facility] Start: 08-13-2024 End: 08-13-2024 Office outpatient visit 25 minutes Jr. Son Waite DO Work Phone: [facility] Comment on above: Internal derangement of right shoulder (Primary Dx) Start: 08-13-2024 End: 08-13-2024 ambulatory SON MELISSA Not Available Start: 08-11-2024 End: 08-11-2024 ambulatory ISABEL CATHERINE Not Available Start: 07-27-2024 End: 07-27-2024 Bamboo flowsheet Isabel Catherine PLANT PRODUCTION WORKER Work Phone: [facility] Start: 07-27-2024 End: 07-27-2024 Bamboo flowsheet Isabel Estela Mariaa PLANT PRODUCTION WORKER Work Phone: [facility] Start: 07-27-2024 End: 07-27-2024 Office outpatient new 30 minutes Isabel Estela Mariaa [employer]ANT PRODUCTION WORKER Work Phone: [facility] Comment on above: Internal derangement of right shoulder (Primary Dx); Right shoulder pain, unspecified chronicity Start: 07-27-2024 End: 07-27-2024 ambulatory ISABEL CATHERINE Not Available Start: 07-21-2024 End: 07-21-2024 Office outpatient visit 25 minutes Blu Kothari MD Work Phone: [facility] Comment on above: Cervical spondylosis without myelopathy (Primary Dx); Age-related osteoporosis without current pathological fracture ([facility]); Primary hypertension ([facility]); Gastroesophageal reflux disease without esophagitis; Lumbosacral spondylosis with radiculopathy; Elevated LDL cholesterol level ([facility]); Shoulder capsulitis, right Start: 07-21-2024 End: [...] shoulder complete minimum 2 views Isabel Catherine PLANT PRODUCTION WORKER Work Phone: Start: 07-03-2023 H/O: hysterectomy History of hysterectomy Blu Kothari MD Work Phone: H/O: hysterectomy History of hysterectomy Alexia MERAZ Work Phone: Plan of Treatment Date Care Activity Detail Author Start: 07-17-2026 Screening for malign ant neoplasm of colon [facility] Start: 08-20-2025 Medicare Annual Wellness (AWV) Medicare Annual Wellness (AWV) [facility] Start: 05-23-2025 Influenza vaccination Influenza Vacc ine (#1) [facility] Comment on above: Postponed from 07/25 (Patient Refused) Start: 03-25-2025 End: 03-25-2025 Patient encounter procedure [facility] Comment on above: Arrived Start: 03-07-2025 End: 03-07-2026 MR Lumbar spine WO contrast MR lumbar spine wo contrast Imaging Routine Lumbosacral spondylosis with radiculopathy Other idiopathic scoliosis, thoracolumbar region Lumbar disc narrowing Expected: 03/07/2025 (Approximate), Expires: 03/07/2026 [facility] Work Phone: Comment on above: [...] for malign ant neoplasm of breast Mammogram [facility] Comment on above: Postponed from 05/13 (Patient Refused) Start: 08-20-2024 End: 08-20-2025 CBC W Auto Differential panel - Blood CBC and differential Lab Routine Medicare annual wellness visit, subsequent Primary hypertension (CMS/HCC) Expected: 08/20/2024 (Approximate), Expires: 08/20/2025 [facility] Work Phone: Comment on above: Expected: 08/20/2024 (Approximate), Expires: 08/20/2025 Start: 08-20-2024 End: 08-20-2025 Comprehensive metabolic 2000 panel - Serum or Plasma Comprehensive metabolic panel Lab Routine Medicare annual wellness visit, subsequent Primary hypertension (CMS/HCC) Elevated LDL cholesterol level (CMS/HCC) Hypercalcemia Expected: 08/20/2024 (Approximate), Expires: 08/20/2025 [facility] Comment on above: Expected: 08/20/2024 (Approximate), [...] Procedure [facility] [address] [place] [id number] [facility] Start: 08-06-2024 End: 08-06-2024 Patient encounter procedure 08/06/2024 9:30 AM EDT Office Visit [facility] [address] [facility] [address] [place] [address] Blu Kothari MD [address] [facility] [address] [place] [address] [facility] Start: 08-01-2024 Medicare Annual [...] Visit [facility] [address] [facility] [address] [place] [address] Isabel Catherine, PLANT PRODUCTION WORKER [address] [facility] [place] [address] Right shoulder pain, unspecified chronicity [facility] Comment on above: Right shoulder pain, unspecified chronicity Start: 07-25-2024 Influenza vaccination Influenza Vacc ine (#1) [facility] Start: 07-21-2024 End: 07-21-2024 Patient encounter procedure 07/21/2024 2:45 PM EDT Office Visit [facility] [address] [facility] [address] [place] [address] Blu Kothari MD [address] [facility] [address] [place] [address] Arrived [facility] Comment on above: Arrived Start: 12-29-2023 End: 12-29-2023 Patient encounter procedure 12/29/2023 3:30 PM EST Office Visit [facility] [address] [facility] [address] [place] [address] Blu Kothari MD [address] [facility] [address] [place] [address] [facility] Start: 06-20-2022 Pneumococcal Vaccine : 65+ Years (2 - PCV) Pneumococcal Vaccine: 65+ Years (2 - PCV) [facility] Start: 06-20-2022 Pneumococcal Vaccine : 65+ Years (2 of 2 - PCV) Pneumococcal Vaccine: 65+ Years (2 of 2 - PCV) [facility] Start: 1995 Screening for malign ant neoplasm of breast Mammogram [facility] Start: 1955 Screening for malign ant neoplasm of colon [facility] Immunizations Immunization Date Immunization Notes Care Provider [facility] 10-10-2024 Pneumococcal Conjuga te PCV 20 Blu Kothari MD Work Phone: [facility] 10-03-2024 influenza, high dose seasonal, preservative-free Blu Kothari MD Work Phone: [facility] 08-07-2023 Influenza, Seasonal, Quadrivalent, Adjuvanted Blu Kothari MD Work Phone: [facility] 08-07-2023 influenza virus vacc ine, unspecified formulation Blu Kothari MD Work Phone: [facility] 11-10-2022 Influenza, High-dose Seasonal, Quadrivalent, Preservative Free Blu Kothari MD Work Phone: [facility] 03-02-2022 zoster vaccine recombinant Padma Kothari MD Work Phone: [facility] 11-30-2021 zoster vaccine recombinant Padma Kothari MD Work Phone: [facility] 09-04-2021 Influenza, High-dose Seasonal, Quadrivalent, Preservative Free Blu Kothari MD Work Phone: [facility] 06-20-2021 pneumococcal polysaccharide vaccine, 23 valent Blu Kothari MD Work Phone: [facility] 04-05-2021 tetanus toxoid, redu viridiana diphtheria toxoid, and acellular pertussis vaccine, adsorbed Blu Kothari MD Work Phone: [facility] 08-17-2020 Influenza, High-dose Seasonal, Quadrivalent, Preservative Free Blu Kothari MD Work Phone: [facility] Payers Date Payer Category Payer Self-pay 2023 Private Health Insurance [id number] 2023 Unknown [id number] 2022 Medicare [id number] 2022 Medicare [id number] 2022 Medicare [id number] 2022 Unknown [id number] [id number] 1959 Unknown [id number] 1955 Unknown [id number] 2.16.840.1.009879.3.579.2.593 1955 Unknown [id number] 2.16.840.1.243206.3.579.2.125 1955 Unknown [id number] 2.16.840.1.338221.3.579.2.1259 1955 Unknown [id number] 2.16.840.1.161475.3.579.2.1259 1955 Unknown [id number] 2.16.840.1.678600.3.579.2.1259 1955 Unknown [id number] 2.16.840.1.110561.3.579.2.1259 1955 Unknown [id number] 2.16.840.1.211197.3.579.2.1259 1955 Unknown [id number] 2.16.840.1.700717.3.579.2.1259 1955 Unknown [id number] 2.16.840.1.534245.3.579.2.1259 1955 Unknown [id number] 2.16.840.1.641013.3.579.2.1259 1955 Unknown [id number] 2.16.840.1.408835.3.579.2.1259 1955 Unknown [id number] 2.16.840.1.804675.3.579.2.1259 1955 Unknown [id number] 2.16.840.1.605306.3.579.2.9 1955 Unknown [id number] 2.16.840.1.522698.3.579.2.9 1955 Unknown [id number] 2.16.840.1.514442.3.579.2.1258 1955 Unknown [id number] 2.16.840.1.420114.3.579.2.9 1955 Unknown [id number] 2.16.840.1.076399.3.579.2.196 1955 Unknown [id number] 2.16.840.1.005223.3.579.2.196 1955 Unknown [id number] 2.16.840.1.845638.3.579.2.196 Private Health Insurance [facility] [id number] Unknown [id number] 2.16.840.1.048328.3.579.2.531 Social History Date Type Detail Facility Start: 07-03-2023 Tobacco smoking stat [facility] Never smoked tobacco [facility] Start: [...] [facility] Start: 07-27-2024 Tobacco smoking stat [facility] Ex-smoker [facility] Work Phone: History of tobacco use Current smoker [facility] History of tobacco use Cigarette Smoker [facility] Start: 08-20-2024 End: 03-25-2025 Alcoholic beverage intake Current drinker of alcohol (finding) [facility] Tobacco smoking stat us [facility] Unknown if ever smoked [facility] Work Phone: Start: 03-19-2025 Sex Female (finding) [facility] Start: 1955 Sex Assigned At Female F [facility] Functional Status Date Assessment Result Facility 03-25-2025 Patient Health Quest ionnaire 2 item (PHQ-2) [Reported] [facility] 03-07-2025 Patient Health Quest ionnaire 2 item (PHQ-2) [Reported] [facility] Clinical Notes 12-29-2023 to 03-25-2025 [...] 8 Multiple Vitamin (Multivitamin Adult) tablet Daily [place]-3 Fatty Acids (Fish Oil) 1000 MG capsule [...] cancer Father Past Medical History: Diagnosis Date 'Bzrhd-hul-cilao' infant with signs of malnutrition Arthritis Cervical [...] Greater than 25 minutes was spent in wnpw-[id number] consultation and coordination of care. Follow up in about 6 months (around 09/25/2025) for Routine F/U. documented in this encounter [facility] 03-07-2025 History of Presen t [...] 8 Multiple Vitamin (Multivitamin Adult) tablet Daily [place]-3 Fatty Acids (Fish Oil) 1000 MG capsule [...] cancer Father Past Medical History: Diagnosis Date 'Uipvs-pqx-hlawb' with signs of malnutrition Arthritis Cervical spondylolysis [...] for Test/Lab Review. documented in this encounter [facility] 02-18-2025 History of Presen t [...] 8 Multiple Vitamin (Multivitamin Adult) tablet Daily. [place]-3 Fatty Acids (Fish Oil) 1000 MG capsule [...] cancer Father Past Medical History: Diagnosis Date 'Moacg-kgk-sppct' with signs of malnutrition Arthritis Cervical spondylolysis [...] for Test/Lab Review. documented in this encounter [facility] 01-03-2025 History of Presen t [...] Referral Reason: Specialty Services Required Referral Location: [facility] Scheduling Requested Specialty: Physical Therapy Number of [...] requiring urgent evaluation. documented in this encounter [facility] 12-02-2024 History of Presen t illness Narrative Images from the original note were not included. HISTORY OF PRESENT ILLNESS: POST OP PT Miguel Gonzalez is an 69 y.o. @ female. (EST PT) S/P (R) SHOULDER SCOPE 10/20/24 (6WKS 1DAY) S/P [facility] PHYSICAL THERAPY ORDER (HAS NOT STARTED) HAS NOT STARTED PHYSICAL THERAPY YET ; STATES SHE DOES HAVE THERAPY SCHEDULED @ [facility] 12/06/24 IF SHE IS [address]ED TO DRIVE BY THEN OTHERWISE SHE WILL SCHEDULE WITH [facility] AT [facility]. PRESENTS WEARING SLING TODAY, INCORRECTLY. NOTES VERY [...] Referral Reason: Specialty Services Required Referral Location: [place] [facility] Scheduling Requested Specialty: Physical Therapy Number of Visits Requested: 1 ASSESSMENT: ICD-10-CM 1. S/P arthroscopy of right shoulder Z98.890 Ambulatory referral to Physical Therapy S/p rotator cuff repair and SAD Assessment & Plan 1. Post-operative status following right shoulder arthroscopy, rotator cuff repair, and subacromial decompression. She has expressed a preference for outpatient therapy at [place]. Given her satisfactory passive and active range [...] requiring urgent evaluation. documented in this encounter [facility] 11-04-2024 History of Presen t [...] requiring urgent evaluation. documented in this encounter [facility] 11-04-2024 Instructions MARIYA David - [...] soon as possible documented in this encounter [facility] 10-19-2024 Telephone encount er Note Post op pain rx. PDMP reviewed [facility] 10-19-2024 Miscellaneous Notes Formattin g of this note might be different from the original. Post op pain rx. PDMP reviewed documented in this encounter [facility] 09-23-2024 History of Presen t illness Narrative Images from the original note were not included. GENERAL HISTORY AND PHYSICAL: NAME: Miguel Gonzalez : 1955 HISTORY OF PRESENT ILLNESS: Miguel Gonzalez is an 69 y.o. @ female. Here for surgery instructions - (R) SHOULDER SCOPE 10/20/2024 @[facility]IE PAST MEDICAL HISTORY: Past Medical History: Diagnosis Date 'Hogai-kzv-pyten' with signs of malnutrition Arthritis Cervical spondylolysis [...] food Multiple Vitamin (Multivitamin Adult) tablet Daily [place]-3 Fatty Acids (Fish Oil) 1000 MG capsule [...] SX INSTRUCTIONS GIVEN TODAY 09/23 @8:30AM - NECHE ULTRASLING GIVEN TODAY ARTHREX NOTIFIED Patient presents [...] Follow up for 11/04 @1:30pm w/aline in [place]. documented in this encounter [facility] 09-15-2024 History of Presen t illness Narrative Images from the original note were not included. HISTORY OF PRESENT ILLNESS: EST PT Miguel Gonzalez is an 69 y.o. @ female. (EST PT) RECHECK (R) SHOULDER ; S/P HEP XRAYS, 07/27/24 IN [facility] MRI 08/11/24 IN [facility] NO MDP / PREDNISONE NO CORTISONE [...] food Multiple Vitamin (Multivitamin Adult) tablet Daily [place]-3 Fatty Acids (Fish Oil) 1000 MG capsule [...] Son Waite D.O. documented in this encounter [facility] 08-23-2024 Telephone encount er Note Spoke with patient she will see 09/15 for her next scheduled appt. [facility] 08-23-2024 Miscellaneous Notes Formattin g of this note might be different from the original. Spoke with patient she will see 09/15 for her next scheduled appt. Patient left requesting to go ahead and schedule her sx. Please advise [phone]. documented in this encounter [facility] 08-23-2024 Telephone encount er Note Patient left requesting to go ahead and schedule her sx. Please advise [phone]. [facility] 08-20-2024 History of Presen t [...] 3 Multiple Vitamin (Multivitamin Adult) tablet Daily. [place]-3 Fatty Acids (Fish Oil) 1000 MG capsule [...] cancer Father Past Medical History: Diagnosis Date 'Mvtxl-ewg-bgpat' with signs of malnutrition Arthritis Cervical spondylolysis [...] Do you have a medical power of deputy prosecuting attorney?: Yes Objective : BP 138/86 Pulse [...] right shoulder The patient is seeing a neuropsychology medical consultant for this condition, treatment is deferred to that specialist. Correspondence from that specialist and any available testing were reviewed during today's visit. Follow up in about 3 months (around 11/19/2024) for Medication Follow Up. Electronically signed by Alexia Reid PA-C on August 20, 2024 documented in this encounter [facility] 08-13-2024 History of Presen t illness Narrative HISTORY OF PRESENT ILLNESS: EST PT Miguel Gonzalez is an 69 y.o. @ female. (EST PT ; LAST APPT W/ ISABEL) RECHECK (R) SHOULDER ; HERE FOR MRI RESULTS 08/11/24 IN [facility] XRAYS, 07/27/24 IN [facility] MRI 08/11/24 IN [facility] NO MDP / PREDNISONE NO CORTISONE [...] food Multiple Vitamin (Multivitamin Adult) tablet Daily [place]-3 Fatty Acids (Fish Oil) 1000 MG capsule [...] she states that she is going to [place] in 2 weeks and then her is scheduled to consult at [facility] 09/10 ; patient would like to [...] Son Waite D.O. documented in this encounter [facility] 07-27-2024 History of Presen t [...] MEDICAL HISTORY: Past Medical History: Diagnosis Date 'Gazpl-att-znboz' with signs of malnutrition Arthritis Cervical spondylolysis [...] food Multiple Vitamin (Multivitamin Adult) tablet Daily [place]-3 Fatty Acids (Fish Oil) 1000 MG capsule [...] develop for requiring urgent evaluation. Isabel Catherine APRN-HANG GLIDING INSTRUCTOR documented in this encounter [facility] 07-21-2024 History of Presen t [...] 3 Multiple Vitamin (Multivitamin Adult) tablet Daily. [place]-3 Fatty Acids (Fish Oil) 1000 MG capsule [...] cancer Father Past Medical History: Diagnosis Date 'Vfxkg-evf-zecwr' with signs of malnutrition Arthritis Cervical spondylolysis [...] As Previously Scheduled. documented in this encounter [facility] 12-29-2023 Telephone encount er Note sent [facility] 12-29-2023 Miscellaneous Notes Formattin g of this note might be different from the original. sent documented in this encounter [facility] Evaluation note Diagnosis Cervical spondylosis without myelopathy- Primary documented in this encounter [facility]* Diagnosis Internal derangement of right shoulder- Primary documented in this encounter [facility]* Diagnosis Pre-op examination- Primary documented in this encounter [facility]* Diagnosis Internal derangement of right shoulder- Primary documented in this encounter [facility]* Diagnosis S/P arthroscopy of right shoulder- Primary documented in this encounter [facility]* Diagnosis Cervical spondylosis without myelopathy- Primary Age-related osteoporosis without current pathological fracture ([facility]) Primary hypertension ([facility]) Unspecified essential hypertension Gastroesophageal reflux disease without esophagitis Esophageal reflux Lumbosacral spondylosis with radiculopathy Elevated LDL cholesterol level ([facility]/HCC) Shoulder capsulitis, right documented in this encounter [facility]* Diagnosis Internal derangement of right shoulder- Primary Right shoulder pain, unspecified chronicity documented in this encounter [facility]* Diagnosis Internal derangement of right shoulder- Primary documented in this encounter [facility]* Diagnosis Medicare annual wellness visit, subsequent- Primary ACP (advance care planning) Other specified counseling Primary insomnia Persistent disorder of initiating or maintaining sleep Lumbosacral spondylosis with radiculopathy Post herpetic neuralgia ([facility]/HCC) Herpes zoster with other nervous system complications Primary hypertension ([facility]/HCC) Unspecified essential hypertension Gastroesophageal reflux disease without esophagitis Esophageal reflux Age-related osteoporosis without current pathological fracture ([facility]/HCC) Cervical spondylosis without myelopathy Lumbar paraspinal muscle spasm Other symptoms referable to back Overweight (BMI 25.0-29.9) Overweight Elevated LDL cholesterol level ([facility]/HCC) History of hysterectomy Acquired absence of both cervix and uterus Hypercalcemia Other problems related to lifestyle Internal derangement of right shoulder [facility] Diagnosis S/P arthroscopy of right shoulder- Primary documented in this encounter [facility]* Diagnosis S/P arthroscopy of right shoulder- Primary documented in this encounter [facility]* Diagnosis Lumbosacral spondylosis with radiculopathy- Primary Right flank pain, chronic documented in this encounter [facility]* Diagnosis Lumbosacral spondylosis with radiculopathy- Primary Right flank pain, chronic Other idiopathic scoliosis, thoracolumbar region Lumbar disc narrowing Degeneration of lumbar or lumbosacral intervertebral disc documented in this encounter [facility] noteNo assessment information availableWilson [facility] Work Phone: Evaluation note* Diagnosis Lumbosacral spondylosis with radiculopathy- Primary documented in this encounter [facility] HealthcareReason for referral (narrative)* Consultation (Routine) - Pending Review Specialty Diagnoses / Procedures Referred By Contact Referred To Contact Orthopaedic Surgery Diagnoses Shoulder capsulitis, right Blu Kothari MD [address] [facility] [address] [place] [address] April Mercedes PA [address] [facility] [address] [place] [address] Referral ID Status Reason Start Date Expiration Date Visits Requested Visits Authorized [id number] Pending Review Specialty Services Required 07/21/2024 01/17/2025 1 1 [facility] Summary Purpose Family History No Family History Records FoundNo Family History Records FoundNo Family History Records FoundNo Family History Records FoundNo Family History Records FoundNo Family History Records Found Advance Directives No Advanced Directives Records Found Advance Directive Response Recorded Date/ Time Advance Directives No March 17, 2 025 3:48pm Reason for Referral Specialty Diagnoses / Procedures Referred By Lorne t Referred To Contact Radiology Diagnoses Internal derangement of right shoulder Procedures MR shoulder right wo IV contrast Isabel Catherine, PLANT PRODUCTION WORKER [address] [place] [address] [facility] Melissa [address] [address] Referral ID Status Reason Start Date Expiration Date V isits Requested Visits Authorized [id number] Authorized 07/27/2024 01/23/2025 1 1 Chief Complaint and Reason for Visit Chief Complaint Admit Date M47.27 M41.25 M51.369 March 18, 2025 1 0:57am Additional Source Comments INFORMATION SOURCE (unrecogn ized section and content) DATE CREATED AUTHOR 12/29/2020 [facility] DATE CREATED AUTHOR AUTHOR'S ORGANIZ ATION 07/09/2021 [facility] DATE CREATED AUTHOR AUTHOR'S ORGANIZ ATION 02/26/2025 [facility] DATE CREATED AUTHOR AUTHOR'S ORGANIZ ATION 03/30/2025 [facility] EPIC DATE CREATED AUTHOR AUTHOR'S ORGANIZ ATION 04/09/2025 [facility] DATE CREATED AUTHOR AUTHOR'S ORGANIZ ATION 07/16/2025 [facility] Reason for Visit (unrecogniz ed section and [...] Care Teams (unrecognized sec tion and content) Cage Shift Manager Relationship Specialty Start Date End Date Blu Kothari MD [address] [facility] [address] [place] [address] PCP - General Internal Medicine 04/01/23 Cage Shift Manager Relationship Specialty Start Date End Date Blu Kothari MD [address] [facility] [address] [place] [address] PCP - General Internal Medicine 04/01/23 Cage Shift Manager Relationship Specialty Start Date End Date Blu Kothari MD [address] [facility] [address] [place] [address] PCP - General Internal Medicine 04/01/23 Cage Shift Manager Relationship Specialty Start Date End Date Blu Kothari MD [address] [facility] [address] [place] [address] PCP - General Internal Medicine 04/01/23 Cage Shift Manager Relationship Specialty Start Date End Date Blu Kothari MD [address] [facility] [address] [place], [place] [id number] PCP - General Internal Medicine 04/01/23 Cage Shift Manager Relationship Specialty Start Date End Date Blu Kothari MD [address] [place] [address] PCP - General Internal Medicine 04/01/23 Cage Shift Manager Relationship Specialty Start Date End Date Blu Kothari MD [address] [place] [address] PCP - General Internal Medicine 04/01/23 Cage Shift Manager Relationship Specialty Start Date End Date Blu Kothari MD [address] [place] [address] PCP - General Internal Medicine 04/01/23 Cage Shift Manager Relationship Specialty Start Date End Date Blu Kothari MD [address] [place] [address] PCP - General Internal Medicine 04/01/23 Cage Shift Manager Relationship Specialty Start Date End Date Blu Kothari MD [address] [place] [address] PCP - General Internal Medicine 04/01/23 Cage Shift Manager Relationship Specialty Start Date End Date Blu Kothari MD [address] [place] [address] PCP - General Internal Medicine 04/01/23 Cage Shift Manager Relationship Specialty Start Date End Date Blu Kothari MD [address] [place] [address] PCP - General Internal Medicine 04/01/23 Cage Shift Manager Relationship Specialty Start Date End Date Blu Kothari MD [address] [place] [address] PCP - General Internal Medicine 04/01/23 Blu Kothari MD [address] [place] [address] PCP - ACO Reach 12/31/24 Cage Shift Manager Relationship Specialty Start Date End Date Blu Kothari MD [address] [place] [address] PCP - General Internal Medicine 04/01/23 Blu Kothari MD [address] [place] [address] PCP - ACO Reach 12/31/24 Cage Shift Manager Relationship Specialty Start Date End Date Blu Kothari MD [address] [place] [address] PCP - General Internal Medicine 04/01/23 Blu Kothari MD [address] [place] [address] PCP - ACO Reach 12/31/24 Cage Shift Manager Relationship Specialty Start Date End Date Blu Kothari MD [address] [place] [address] PCP - General Internal Medicine 04/01/23 Blu Kothari MD [address] [place] [address] PCP - ACO Reach 12/31/24 Cage Shift Manager Relationship Specialty Start Date End Date Blu Kothari MD [address] [place] [address] PCP - General Internal Medicine 04/01/23 Blu Kothari MD [address] [place] [address] PCP - ACO Reach 12/31/24 Cage Shift Manager Relationship Specialty Start Date End Date Blu Kothari MD [address] [place] [address] PCP - General Internal Medicine 04/01/23 Blu Kothari MD [address] [place] [address] PCP - ACO Reach 12/31/24 Team Status: Active Member Role Status Dates Blu Kothari II MD Primary Care Provider Active Team Status: Inactive Member Role Status Dates Blu Kothari II MD Primary Care Provid er, Attending Provider Active Start: March 18, 2025 End: March 18, 2025 Cage Shift Manager Relationship Specialty Start Date End Date Blu Kothari MD [address] [place] [address] PCP - General Internal Medicine 04/01/23 Blu Kothari MD [address] [place] [address] PCP - ACO Reach 12/31/24 Goals (unrecognized [...] BE BASED ON THE PRIMARY CLINICAL RECORDS. [facility] [employer] [facility]. provides no warranty or guarantee of the accuracy or completeness of information in this document.
[2025-08-08 06:54] VITALS: BP 175/83; PULSE 74; TEMP 36.5; O2SAT 98
--- NOTE | 2025-08-08 07:41 | PC.NURSE ---
pain 3/10 upon discharge
[2025-08-08 07:42] VITALS: BP 172/92; BP 178/88; PULSE 77; PULSE 80; O2SAT 98
[2025-08-08] MEDS: LIDOCAINE HCL 2% 400 MG/20 ML MDV INJ (07:46)
[2025-08-08] MEDS: BUPIVACAINE HCL 0.25% PF 25 MG/10 ML VIAL 8 ML INJ (07:46)
--- NOTE | 2025-08-08 07:46 | W.PM.PROCNOT ---
Date of procedure: 08/08/25 Pre-op diagnosis: Pain due to lumbar spondylosis without myelopathy Post-op diagnosis: same as pre-op Procedure: Procedure: Bilateral L2-3, L3-4 medial branch block Medications: Bupivacaine 0.25% 6cc The patient was seen and examined in the preoperative holding area.? An informed consent was obtained and placed on the chart.? The patient was brought to the medical procedure unit and placed in the prone position.? A timeout was completed verifying correct patient, procedure site, positioning, plan, and special equipment.? Using aseptic technique, the needle was placed at left L2. Under direct fluoroscopic visualization a Quincke-tipped spinal needle was advanced to the junction of the superior articulating process with the transverse process at the designated medial branch segment.? Preceded by negative aspiration, the above-mentioned injectate was placed in 1 mL aliquots.? The procedure was repeated at left L3, 4.? The needle was removed and insertion site was covered. The same procedure, at the same levels, was completed on the right side. The patient was taken to the postprocedural recovery area and monitored for an appropriate length of time before found suitable for discharge in the company of a responsible adult. Anesthesia: Local Surgeon: Bouchra Angel Pathology: none sent Condition: stable Disposition: no change
== END 2025-08-08 07:49 | disposition home or self-care (01) ==
PROVIDERS: PCP Internal Medicine; Visit Provider Anesthesiology
DX: M47.816 Spondylosis without myelopathy or radiculopathy, lumbar region (principal); M54.50 Low back pain, unspecified
CPT/HCPCS: 64493; 64494; J0665

== ENCOUNTER 2025-08-11 07:18 | Outpatient (OUT) | payer OTHER, MEDICARE, SELFPAY ==
--- OUTSIDE RECORDS SUMMARY | 2025-08-11 07:21 | XMS_ITS | CCD ---
Author Organization [facility] Care Team Providers Care Crushing Foreman Name Role Phone BLU KOTHARI Attending BLU Champagne Consulting BLU Champagne Primary Care BLU Champagne Admitting Blu Champagne MD Primary Care Provider Blu Kothari MD Unavailable [phone] Blu Kothari II Primary Care Provider [phone] Blu Kothari II Attending Provider APRIL MERCEDES Attending BLU Champagne Attending Unavailable BLU KOTHARI Attending Unavailable BLU KOTHARI Referring Unavailable BLU KOTHARI Attending Unavailable BLU KOTHARI Attending Unavailable ISABEL CATHERINE Attending Unavailable ISABEL CATHERINE Referring Unavailable ISABEL CATHERINE Referring Unavailable JR. KAIN, SON Guerrero Attending ALEXIA Amado Attending Unavailable JR. KAIN, SON Guerrero Attending Unavaila APRIL Shirley Attending Unavailable APRIL MERCEDES Attending Unavailable APRIL MERCEDES Attending Unavailable Blu Kothari Attending Unavailable Blu Kothari Primary Care Unavailable Blu Kothari Admitting Unavailable [...] with food. 100 tablet 3 12/29/2023 Active [place]-3 Fatty Acids (Fish Oi l) 1000 MG capsule delayed-release (20 sources) [place]-3 Fatty Ac ids (Fish Oil) 1000 MG capsule delayed-release Take by mouth Daily Active [place]-3 Fatty Ac ids (Fish Oil) 1000 MG capsule delayed-release Take by mouth Daily. Active [place]-3 Fatty Ac ids (Fish Oil) 1000 MG [...] Reference Range Facility MR lumbar spine wo [facility] MR lumbar spine [facility] [place] [address] MRI Report Signed Patient: Miguel Gonzalez MR#: [id number] : 1955 Acct:[id number] Age/Sex: 69 / F ADM Date: 03/18/25 Loc: Room: Type: [facility] Attending Dr: Blu Kothari II, MD [...] narrowing identified. L2-3: Broad-based disc bulge with lfqc-ks-owxplbjk facet arthropathy. Minimal foraminal narrowing. Canal is patent. L3-L4: Circumferential disc bulge with moderate facet arthropathy. Mild neural foraminal narrowing. Minimal central canal stenosis. L4-5: Disc desiccation. Moderate disc facet arthropathy. No significant central canal or neural from narrowing identified. L5-S1: Circumferential disc bulge with moderate facet arthropathy. Moderate right moderate left neural foraminal narrowing. MR/MR lumbar spine wo con IMPRESSION: Bota-ix-fkcairll multilevel degenerative changes without high-grade canal or neural foraminal narrowing. Moderate left neural foraminal narrowing at L5-S1 Impression dictated by: Ever Odonnell M.D. 03/18/2025 3:49 PM Dictation Location: [place] [address] Transcribed By: [facility] 03/18/25 1549 Dictated By: Ever Odonnell MD 03/18/25 1509 Signed By: 03/18/25 1549 Normal [facility] Magnetic resonance imaging r eportOrdered By: Ever Odonnell on 03-18-2025 Study report [facility] [place] [address] [place] [address] MRI Report Signed Patient: Miguel Gonzalez MR#: [id number] : 1955 Acct:[id number] Age/Sex: 69 / F ADM Date: 5 Loc: MR Room: Type: [facility] Attending Dr: Blu Kothari II, MD [...] narrowing identified. L2-3: Broad-based disc bulge with ozoa-fv-phhnkaar facet arthropathy. Minimal foraminal narrowing. Canal is patent. L3-L4: Circumferential disc bulge with moderate facet arthropathy. Mild neural foraminal narrowing. Minimal central canal stenosis. L4-5: Disc desiccation. Moderate disc facet arthropathy. No significant central canal or neural from narrowing identified. L5-S1: Circumferential disc bulge with moderate facet arthropathy. Moderate right moderate left neural foraminal narrowing. MR/MR lumbar spine wo con IMPRESSION: Zuur-ek-nxtsoyzf multilevel degenerative changes without high-grade canal or neural foraminal narrowing. Moderate left neural foraminal narrowing at L5-S1 Impression dictated by: Ever Odonnell M.D. 03/18/2025 3:49 PM Dictation Location: [place] [address] Transcribed By: [facility] 03/18/25 1549 Dictated By: Ever Odonnell MD 03/18/25 1509 Signed By: 03/18/25 1549 [facility] Work Phone: CT ABDOMEN PELVIS W [...] 02-23-2025 Creatinine [Mass/Vol] 0.55 mg/dL Normal 0.50-1.05 Meta Comment on above: Performed By: #### 3 75 #### [facility] [address], [address] [place] [phone] Teachers' Assistant: Truman Liao MD GFR/1.73 sq M.predicted among non-blacks MDRD (S/P/Bld) [Vol rate/Area] 99 mL/min/{1.73_m2} Normal > OR = 60 [facility] Comment on above: Performed By: #### 3 75 #### [facility] [address], [address] [place] [phone] Teachers' Assistant: Truman Liao MD Urinalysis macro (dipstick) panel (U)on 02-18-2025 Bilirubin, UA Negative Negative - 4(70) +++ mg/dL [facility] Blood, UA Negative Negative - 50 Tan/mcL [facility] Glucose, UA Negative Negative - 1999(110) ++++ mg/dL [facility] Ketones, UA Negative Negative - 160(16) ++++ mg/dL [facility] Leukocytes, UA Negative Negative - 500+++ [place]/mcL [facility] Nitrite, UA Negative Negative - Positive [facility] pH, UA 6.5 5 - 9 [facility] Protein, UA Negative Negative - 1999(20) ++++ mg/dL [facility] Spec Grav, UA 1.005 1 - 1.03 [facility] Urobilinogen, UA 0.2 0.2 - 12 mg/dL [facility] SHOULDER RIGHT WO IV [...] MRI R T shoulder w/o at [facility]. Orbits if needed. Eval for [...] fracture and/or dislocation. Impression: Unremarkable right shoulder. [facility] XR Shoulder - right 2 ViewsO rdered By: Jr. Waite on 08-02-2024 [facility] [employer] [employer] Work Phone: XR Shoulder - right 2 Viewso n 07-27-2024 Radiology Study observation (narrative) [facility] Coding Summary.on 04-15-2021 Coding Summary. CD:[id number] Gh 0bWw+PGhlYWQ+IY5PKZNrW 12djRHhoJ4UP2qJVN7PBGE JZFVUVQ6OHX1dmJK6YDvaO 2VybiAv QjecyZZvZU87BMf8RDX6xN sqCUsxdT0zkXQkY1x4DnWz AG70sO31VWslAVTaPkC8Je ZpbjsgbWFy F5zkEjXlmOUnVhk+PHRhYm xlIHdpZHRoPScxMDAlJyBz pRtoQL6zAn9lTJMtGCKabU xhcHNlOiBj l2ffPLWeGOnkSH3qrMyrQ1 TjmNR4QIFwl3q9Eq59aVD+ ZPYtZQL7uZlgDYjie216Ws Ogu3juMSL3 qNPqATfrHSQ1G78ri5Z7DJ ToCZCaTAS5cUF3fH8ibCpd vsveO0YnlWEsVfH9MBW6lT VvtK6tpVgf lroyxQ7lIfg+V19IJD4CGR MVPO2JFof9Z0NiBhyvfPC+ SM57ALLaZG69yMVfgUVbv3 bvcSd4GsCq JREtFAK1mFevDLxwh1ReGM ZvS31ltRAus8Q5MSAqcRzr eSJjTjNctTB6eX4cCLlwpk wle2hfflij Zugsg4rxxr74lJ87V10yQG evFYSfZJJ6VVUbOFJogJke he8auU5oAl0+DQczx4lhp0 qlcEt7KcAe CXByxhAspDxmOUY3x1KnRa 48M2JjjYgne3ZfByz4zy98 oPKpn2W9qYK2LNnnEJXgpT 0tHTlrMgA7 INLlZrNpmT14mGDxGYhwRm 7nmWbzbMwhQI7lTUAwsqlv HPHxpX1tPKJbnDErdXpvBF 4wNTBpbjtm p603QzBkKSM6CDLbhNFxD7 DipR6zFxHqSHHtMAJrJ5Pz wUCvZBptA708PXqvMfM8XE BsftVxF0Vk LNVtvPufWcR0q2T4Qx7Bg1 HnsjqwAON4LQriHNK8YwFp FqNgHbG6B7VuDzx4HIKisO fnSJ7qN1Ms VMKsryevamnglWP0XOVcEM OqlN58uLDyCHlkPi2on1J8 l941OWYnBAHgeB82Xb8yyV ogMTBwdCBU vL5crhogl8guoiahArVeKZ SdBXd1AWj8QQUrqYsxVtWz EDO3GqJ5XOQ6eGDykS6nbM vfgkzzgN8b Oyc+Q04xiM6mIQZ2SGY7zi knOACyjnVhZZ41RY05I5Jt PjwvdGFibGU+PGRpdiBzdH ddSX0jJsQr p8nod3NqNXxbH5BiYFNgBQ xrVwy6MQVuSCK8oFQ2qB2x HIVbDFezo1I4oNN9F1Vhdl Exig3sw3fn KOBtFMskV33uoXTvq5T0OW ExvVY7AKGtqUnaJmAzhW44 Oyc+KNJqzAbxe4GiThauw0 din9nneXb1 FdHpKUAtijRazCogKTA6m1 DqGd72B66iTVudVGOiFIKz XRCqQVQmfGzjru3chW9qDs 8+PGNvbCB3 sIT0nO9cLJXxZrB4YBziT4 26SoDvxIAiKezlm3epi1gm uVt9KdAeZCSzuyJsxDpoTK Q4t1AuOv03 U42cTEagWKJdLLGxXUShWP ObfEhcaz2uxZ5gWu1+PC9j l2smee45cP90fCW+PHRkIH P6tHidWGrw DUVmlO7vFXdgDtD4IUOsDf QguM22hAYdRRxtZr5iyElh kGisOZ7mBQInlqmmv125Ac Ngx7dxFBPe zHGeAQzxKTS1M22ew2M1QP YtCOBoRNM1vHT7cY0rbMlb bjogbGVmdDsgdmVydGljYW enCTzmI055 IHRvcDsnPlBhdGllbnQgTm NvADu5R2SwGft1UHEkgJpv EW8syZOdVUkzKw8kcOfwtH yvZH7tGKCb xlanj510DwZej4vyIORywS XaWSbwQZB9K40xh2Z8HBRp PCWtLOO0dUN1zV8vwCiovp ogbGVmdDsg aoHouOjuYSgmLOsiX789DP RvcDsnPkJpcnRoIERhdGU6 KM40ON40mQSls7P9eWP1B9 BhZGRpbmct jngbuYJ4DOVqKVBmcK65Rn 9bwVpuGf2mTXHtOGD0OTUt wVHdB6BatR3kRxWbXMPjVV WmA3VyxOUi ZTgwC480QPclVpC7GUJpzp EcN6IhCMCrxEjtNqH7t1W2 Zy7GU4I1EA27JT20vXDxq5 O5aSU3N5Vd ODQmjhvjwbmljXT8HUNmLZ WxjM74Zx7iqAfnJa0nIDTq BFA0EBPhwEDfB5RtsA2qWl AjMDAwMDAw B5EocQOfSNroD449DVdwMt W2MJQsufDmS3MxGZTjyQig IiP2o7E3Dq8NGQb6ZN36OH 93gWXcb0O8 hCT8D4LvYBGahnefnbahfW A4VLXzOHUnfH83Nj0mtXld Yb6uMVWmOMV3JQYidNQnK7 PlmN0qRhVp VOXpOMOfJ3ZulXTtRFnwU6 09JNcoUqJ6XYQfqdDsD2Du BSTacApoUvE8z4B8Wp9NQA QcGH27SKU6 uOQ8JV46ZR22Q2FeIuqjsJ FibGU+PHRhYmxlIHdpZHRo IXurGJMbLsDxxBayFH4yCr 9yZGVyLWNv yRlsoWYvBjRhh6pvXBYyUJ lhGF8cyJusL4AukSM2MZIw t4j6Hv85J36uO3McePK+PG SbyHR7kGS7 nH4eLfPcLeS7IRoeF405Xg VgrFYgZqnkb6mjt6wyxRr4 RdX7HHHzrbDsaNcvIEV7p6 AiIe83M90w IHdpZHRoPSIxNSUiIHZhbG tqus4ltQ9lNv7+PGNvbCB3 uEE8vA8pKiKmIaG7MSinU8 49InRvcCIv Ewowi5tyj9qotSx4DfRnQV CuleHkyBegPPT3z0IoJf01 R9OniHpbh3CzWqi4kd30eA Rxr0T1fMR6 G7AcBTGukrvquRDwuAkmWT 2eMQQpshmdBKPvjQ0tFINp F7j8DuZlEmX2SIimL8Zhxe D5VSNajXZo XWfnBOX2T83ex4O7CXAqZH TlUWG8zJZ7nG3zkWwgqnfl bGVmdDsgdmVydGljYWwtYW sqY543OKQa vXloAEQhgB5xGDBqvEWurU ybHL4mMZRbvqkiPwmBMPWD TBABHFFCKSVYPV77IS04oQ Dnw3I1eUR8 U8AuATMaljttzilgwYZ4HV OuLHTapZ44dPSrIGcmJg2h x8V5g837URNaTWOtsI24Gc 9udDogMTBw rEWJyI7zquoxs4ieqqwzFu MbLEWzXPf1HYs9QZXjuNit SrCvQTT7XmK8AUK3nIPgiY 1hbGlnbjog fR0hOej+PTUhKjCgQNk1GC wvdGQ+MYTdUJD3qKnlUUfc WEDkrR9dRSFdI4u7VeAlXc U5CLoxR1De ZTJocnwhGb84xU7qHfVfVv B5NTeiG1QltaJ7TSEbnXCn TLclKSC6F76iv2C6KLGqWH AvKJC6uDT9 gB5eaKpgkznloGSccZyhcx NamMsbJDirCDbwZ595BLRw bWrnQtN0KPcbUKIqBF35UK 98aVDqw9Z7 bNO6O7OzNDGmbrimwumwaX X2SPXnWSOihW16eWBlRGmp Nz6tr9B1l013HEEzLPWclL 30Ay9ctLnd MIJfuUHZhJ9gggwrc5jyxd hcJrTtJJJaYDg5SQc4ICHc yAbiTtVzPXG3JlJ9KNF5sL RcuM7nsMdk svobmF2lUys+RmVtYWxlPC 42HO10sZKno1O7ySC4O4Ar ROFwyzxxrdgqtFP2WLXrVO JieP51yWFy TSzvSe7xo3T8f674IRUfHQ KvmE65Bg0yxKhyEVBynHOS uB9fdlnzd0xhdjewUiFgRA MjQZv1ISq5 HPSnwAfyLxIkIBM0NfK9UA S4bPTcoX7kxHdwcvlrsV5a Oyc+AU8abaavkrQ0DA40TQ 05E5JnGlnk dGFibGU+PHRhYmxlIHdpZH DnJWdjGGKuFeZshSsyTS0t Ju0wIPGlOBHozEaimQBhBj Xlo3pcHTLe YSvvSJ0fsRtwI8DpdLX2FF Jbk6f1Ou75L82cB2XuuYX+ LZNccKO6nXS4uT0nOnJhIx L7GIumA184 RqUwjFHhAsutl8myb1pkbZ r4ZfRtGPYdhzFxhZpcNCW8 h3KfQd03W75rNVgbSKBcBQ IyMCUiIHZh nPjffc9pzN0lCp8+PGNvbC C4dUE0hO2yUlQuAcG9PUax M032OmCvlTHcYyrhI76uJ2 JvdXA+PHRy Ezk1PZMucMbxXL6ngXBoVE kwVh9xVHO6BsKkNkRxNPpg B2BoDVOlrqsvlujioAZ8JE WgCMAxfP18 Fr8dcWddYs1oGODdFUZ7BU LifEHyV8KusC9fFjFuREPj JXJrT6IzoMVgKZsiX404JK teGxC0MCPm brUoY2PgYRLsnOuiReV5o9 B6Zf0ClVwphWHoGD9hFwHs NAu7O4HyZgs5LKVwzDjlCF 0ncGFkZGlu Wm6gcKofiVxsVV7zHSKakx mmk247XqWhd2aiZDPegPUw ZOofGMR9E92rk0U6VYFtDL DbZRC7nFB9 gF2yqPcytnoyhCCqgHumjw DtcEqdVMfxFRggI091CHUl qZmhQbGOXkq5X1KuHsf2XF NvnGciYB5g tUIyRVesZo5ewEoerKjzCQ 0xDCMktxogz166ArKyu5gb MHTfyGLaUMrhABX0Q64fv8 V3GHAcEMWy WPB3dLF3hY1vyGolccqrzJ VmdDsgdmVydGljYWwtYWxp M365XBSwbHoxQo0SYgo4G6 NuFig6SKVx yDmoIK3ptIZdLLzuRs7blF nkaIqsJK4nYNSvsxphj161 BcJed0shNMQmzJOiZOlwIF X7A90yz1B6 JWUpAGUlQKI0cEB1iV6qiW lnbjogbGVmdDsgdmVydGlj QTnkWHcfO495BCKzvKilKc BheWVyOjwv dGQ+RQ28ys42U9CmMbxxHz g9CTEhKFU6yDD6hN9uRESt UToxi2S8lGL3P6UakwNism 2oq8rjGGMm ZTog (more content not included)... 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 She states they are unsure whether the cat is up-to-date on its immunizations. She states that her dog is one after the cat, and she attempted to shrimp picker the cat when the cat turned [...] Appropriate mood & affect. Integumentary: Warm, Dry, [place]. Puncture wounds noted to the left thumb [...] encounter) 2. Cat scratch of lower leg (S80.239A: Abrasion, unspecified lower leg, initial encounter) Orders: [...] DARCY In 3 days 04/08/2021 EDT [address] [place] [address] [facility] (1) Additional Instructions: Wear the splint for [...] body noted. Read By: Alexandr Eduardo PA-C [facility] Comment on above: Result Comment: Elec tronically Signed By: Alexandr Eduardo PA-C\.br\Date and Time Signed: 04/05/21 21:31 EDT\.br\Electronically Co-Signed By: Abdoulaye Watson M.D. H\.lala\Date and Time Co-Signed: 04/06/21 11:28 EDT Animal Bite Investigationon 04-05-2021 Animal Bite Investigation [id number]. 00CD:127 Normal [facility] Consent for Treatmenton 03-24 Consent for Treatment [id number] 0CD:127 Normal [facility] Discharge Instructionson Discharge Instructions [id number] .[id number]:127 Normal [facility] ED Clinical Summaryon 2020 ED Clinical Summary [id number] ED Clinical Summary Person Information Name: MIGUEL GONZALEZ [facility] Age: 65 Years : 1955 Sex: Female Language: Kenyan PCP: BLU KOTHARI MD Marital Status: Visit [...] 14:46:42 04/05/2021 14:46:42 04/05/2021 14:46:42 ADDRESS: [address] [place] [address] [address] [place] [id number] PHYS DOC NOTES: MEDICAL INFORMATION: Prescriptions Given: [...] Follow up: With: Address: When: BLU [place] [address] [employer] (1) In 3 days 04/08/2021 Comments: Wear [...] hand; 2:Cat scratch of lower leg Normal [facility] ED Patient Education Noteon 04-05-2021 ED [...] and water are not available, use hand healthcare or medical. ? Change your dressing as told by [...] bad smell. Medicines ? Take or apply cucc-zhp-idvrqpw and prescription medicines only as told by [...] antibiotic medic (more content not included)... Normal [facility] ED Patient Summaryon 021 ED Patient Summary [place] [id number] Patient Discharge Instructions Person Information Name: MIGUEL GONZALEZ Age: 65 Years Arrival Date: 04/05/2021 12:55:11 Discharge Diagnosis: 1:Cat bite of left hand; 2:Cat scratch of lower leg Primary Care Physician: BLU KOTHARI MD Provider Information Primary Provider: Abdoulaye Watson M.D. Advanced Stallion Keeper:Alexandr Eduardo PA-C The exam and treatment you received in the Emergency Department were for an urgent problem and are not intended as complete care. It is important that you follow up with a doctor, nurse practitioner, or physician?s technical staff assistant for ongoing care. If your symptoms [...] Follow-up Instructions: With: Address: When: BLU Rick [facility] [place] [address] Business (1) In 3 days 04/08/2021 Comments: [...] opioids can be used to help relieve vqgpzpef-bt-zmjyso pain and are often prescribed following a [...] and Drug (more content not included)... Normal [facility] Vaccinationson 04-05-2021 Vaccinations [id number] .[id number]:127 Normal [facility] XR Finger(s) Min 2 Views Lef [...] M.D. Transcribed by: MAYELIN Technologist: HARRY Neal [facility] Covid-19 PCR (CVDTBH)on 11-25 Covid-19 PCR NOT DETECTED Normal NOT DETECTED [facility] Comment on above: Result Comment: This test is not yet approved or cleared by the [place] FDA. When there are no FDA-approved or cleared tests available, and other criteria are met, FDA can make tests available under an emergency access mechanism called an Emergency Use Authorization (EUA). The EUA for this test is supported by the [place] of Health and Human Service's (HHS's) declaration [...] used). Performed By: #### C [facility] #### [facility] [address] [place] [address] Adore Hale EUA Statement SEE BELOW Normal [facility] Comment on above: Result Comment: This test is not yet approved or cleared by the [place] FDA. When there are no FDA-approved or cleared tests available, and other criteria are met, FDA can make tests available under an emergency access mechanism called an Emergency Use Authorization (EUA). The EUA for this test is supported by the Client [employer] Specialist of Health and Human Service?s (HHS?s) declaration [...] consistent with SARS-CoV-2. Performed By: #### C TB #### [facility] [address] [place] [address] Adore Hale Vital Signs Date Time Vital Sign Value Performing Clinician Mikala stevens 03-25-2025 08:54-0400 Body height 144.8 cm Blu Kothari MD Work Phone: [facility] 03-25-2025 08:54-0400 Body mass index (BMI) [Ratio] 26.81 kg/m2 Blu Kothari MD Work Phone: [facility] 03-25-2025 08:54-0400 Body weight 56.2 kg Blu Kothari MD Work Phone: [facility] 03-25-2025 08:54-0400 Diastolic blood pressure 102 mm[Hg] Blu Kothari MD Work Phone: [facility] 03-25-2025 08:54-0400 Heart rate 68 /min Blu Kothari MD Work Phone: [facility] 03-25-2025 08:54-0400 Respiratory rate 16 /min Blu Kothari MD Work Phone: [facility] 03-25-2025 08:54-0400 SaO2% (BldA) [Mass fraction] 98 % Blu Kothari MD Work Phone: [facility] 03-25-2025 08:54-0400 Systolic blood pressure 164 mm[Hg] Blu Kothari MD Work Phone: [facility] 03-07-2025 09:18-0400 Body height 144.8 cm Blu Kothari MD Work Phone: [facility] 03-07-2025 09:18-0400 Body mass index (BMI) [Ratio] 26.62 kg/m2 Blu Kothari MD Work Phone: [facility] 03-07-2025 09:18-0400 Body weight 55.79 kg Blu Kothari MD Work Phone: [facility] 03-07-2025 09:18-0400 Diastolic blood pressure 76 mm[Hg] Blu Kothari MD Work Phone: [facility] 03-07-2025 09:18-0400 Heart rate 70 /min Blu Kothari MD Work Phone: [facility] 03-07-2025 09:18-0400 SaO2% (BldA) [Mass fraction] 99 % Blu Kothari MD Work Phone: [facility] 03-07-2025 09:18-0400 Systolic blood pressure 128 mm[Hg] Blu Kothari MD Work Phone: [facility] 02-18-2025 09:04-0400 Body height 144.8 cm Blu Kothari MD Work Phone: [facility] 02-18-2025 09:04-0400 Body mass index (BMI) [Ratio] 26.83 kg/m2 Blu Kothari MD Work Phone: [facility] 02-18-2025 09:04-0400 Body weight 56.25 kg Blu Kothari MD Work Phone: [facility] 02-18-2025 09:04-0400 Diastolic blood pressure 74 mm[Hg] Blu Kothari MD Work Phone: [facility] 02-18-2025 09:04-0400 Heart rate 72 /min Blu Kothari MD Work Phone: [facility] 02-18-2025 09:04-0400 SaO2% (BldA) [Mass fraction] 98 % Blu Kothari MD Work Phone: [facility] 02-18-2025 09:04-0400 Systolic blood pressure 132 mm[Hg] Blu Kothari MD Work Phone: [facility] 09-23-2024 08:16-0400 Body height 144.8 cm April MERAZ Work Phone: [facility] 09-23-2024 08:16-0400 Body mass index (BMI) [Ratio] 25.75 kg/m2 April MERAZ Work Phone: [facility] 09-23-2024 08:16-0400 Body weight 53.98 kg April Daren PA Work Phone: [facility] 08-20-2024 08:35-0400 Body height 144.8 cm Alexiasayra Kohlimer PA Work Phone: [facility] 08-20-2024 08:35-0400 Body mass index (BMI) [Ratio] 25.92 kg/m2 Alexia Hemmer PA Work Phone: [facility] 08-20-2024 08:35-0400 Body weight 54.34 kg Alexia Hemmer PA Work Phone: [facility] 08-20-2024 08:35-0400 Diastolic blood pressure 86 mm[Hg] Alexia Hemmer PA Work Phone: [facility] 08-20-2024 08:35-0400 Heart rate 70 /min Alexia Hemmer PA Work Phone: [facility] 08-20-2024 08:35-0400 Respiratory rate 16 /min Alexia Hemmer PA Work Phone: [facility] 08-20-2024 08:35-0400 SaO2% (BldA) [Mass fraction] 96 % Alexia Hemmer PA Work Phone: [facility] 08-20-2024 08:35-0400 Systolic blood pressure 138 mm[Hg] Alexia Hemmer PA Work Phone: [facility] 07-27-2024 11:58-0400 Body height 144.8 cm Isabel Catherine NP Work Phone: [facility] 07-27-2024 11:58-0400 Body mass index (BMI) [Ratio] 25.75 kg/m2 Isabel Catherine NP Work Phone: [facility] 07-27-2024 11:58-0400 Body weight 53.98 kg Isabel Catherine NP Work Phone: [facility] 07-21-2024 14:44-0400 Body height 147.3 cm Blu Kothari MD Work Phone: [facility] 07-21-2024 14:44-0400 Body mass index (BMI) [Ratio] 25.71 kg/m2 Blu Kothari MD Work Phone: [facility] 07-21-2024 14:44-0400 Body weight 55.79 kg Blu Kothari MD Work Phone: [facility] 07-21-2024 14:44-0400 Diastolic blood pressure 80 mm[Hg] Blu Kothari MD Work Phone: [facility] 07-21-2024 14:44-0400 Heart rate 79 /min Blu Kothari MD Work Phone: [facility] 07-21-2024 14:44-0400 SaO2% (BldA) [Mass fraction] 98 % Blu Kothari MD Work Phone: [facility] 07-21-2024 14:44-0400 Systolic blood pressure 130 mm[Hg] Blu Kothari MD Work Phone: [facility] Healthcare Encounters Encounter Date Encounter Type Care Provider Facility Start: 08-08-2025 End: 08-08-2025 ambulatory Bouchra Angel MD Facility:[facility] Start: 07-11-2025 End: 07-11-2025 ambulatory Bouchra Angel MD Facility:[facility] Start: 06-06-2025 End: 06-06-2025 ambulatory Bouchra Angel MD Facility:[facility] Start: 05-02-2025 End: 05-02-2025 ambulatory Bouchra Angel MD Facility:[facility] Start: 03-25-2025 End: 03-25-2025 Bamboo flowsheet Blu [...] encounter procedure Blu Kothari II Work Phone: [facility] [place] Work Phone: Start: 03-18-2025 End: 03-18-2025 ambulatory Blu Kothari II Work Phone: [facility] Work Phone: Start: 03-07-2025 End: [...] End: 02-18-2025 Office outpatient visit 25 minutes Bul Kothari MD Work Phone: [facility] [...] original px April Mercedes PA Work Phone: [facility] Comment on above: S/P arthroscopy of r ight shoulder (Primary Dx) Start: 11-04-2024 End: 11-04-2024 ambulatory APRIL MERCEDES Not Available Start: 10-19-2024 End: 10-19-2024 Refill Isabel Catherine SKOOG MACHINE OPERATOR Work Phone: [facility] Comment on above: Internal derangement of right shoulder (Primary Dx) Start: 09-23-2024 End: 09-23-2024 Bamboo flowsheet April Mercedes PA Work Phone: [facility] Start: 09-23-2024 End: 09-23-2024 Bamboo flowsheet April Mercedes PA Work Phone: [facility] Start: 09-23-2024 End: 09-23-2024 Patient encounter procedure April Mercedes PA Work Phone: [facility] Comment on above: Pre-op examination ( Primary Dx) Start: 09-23-2024 End: 09-23-2024 Preprocedural examination done April Mercedes PA Work Phone: [facility] Work Phone: Start: 09-23-2024 End: 09-23-2024 ambulatory APRIL MERCEDES Not Available Start: 09-15-2024 End: 09-15-2024 Bamshady Waite DO Work Phone: [facility] Start: 09-15-2024 End: 09-15-2024 Bambodelfina Waite DO Work Phone: [facility] Start: 09-15-2024 End: 09-15-2024 Office outpatient visit 25 minutes Jr. Son Waite DO Work Phone: [facility] Comment on above: Internal derangement [...] 08-20-2024 End: 08-20-2024 Patient encounter procedure Alexia Reid PA Work Phone: [facility] Comment on above: Medicare annual well [facility] visit, subsequent (Primary Dx); ACP (advance [...] Not Available Start: 08-13-2024 End: 08-13-2024 Bamboo flowsheet Jr. Son Guerrero Stepanic DO Work Phone: [facility] Start: 08-13-2024 End: 08-13-2024 Bamboo flowsheet Jr. Son Guerrero Stepanic DO Work Phone: [facility] Start: 08-13-2024 End: 08-13-2024 Office outpatient visit 25 minutes Jr. Son Guerrero Stepmilena DO Work Phone: [facility] Comment on above: Internal derangement of right shoulder (Primary Dx) Start: 08-13-2024 End: 08-13-2024 ambulatory SON MELISSA Not Available Start: 08-11-2024 End: 08-11-2024 ambulatory ISABEL Estela DORENE Not Available Start: 07-27-2024 End: 07-27-2024 Bamboo flowsheet Isabel Catherine SKOOG MACHINE OPERATOR Work Phone: [facility] Start: 07-27-2024 End: 07-27-2024 Bamboo flowsheet Isabel Estela Dorene SKOOG MACHINE OPERATOR Work Phone: [facility] Start: 07-27-2024 End: 07-27-2024 Office outpatient new 30 minutes Isabel Catherine SKOOG MACHINE OPERATOR Work Phone: [facility] Comment on above: Internal derangement of right shoulder (Primary Dx); Right shoulder pain, unspecified chronicity Start: 07-27-2024 End: 07-27-2024 ambulatory ISABEL Estela DORENE Not Available Start: 07-21-2024 End: 07-21-2024 Office outpatient visit 25 minutes Blu Kothari MD Work Phone: [facility] Comment on above: Cervical spondylosis without myelopathy (Primary Dx); Age-related osteoporosis without current pathological fracture ([facility]); Primary hypertension ([facility]); Gastroesophageal reflux disease without esophagitis; Lumbosacral spondylosis with radiculopathy; Elevated LDL cholesterol level ([facility]); Shoulder capsulitis, right Start: 07-21-2024 End: [...] Radex shoulder complete minimum 2 views Isabel Estela Dorene SKOOG MACHINE OPERATOR Work Phone: Start: 07-03-2023 H/O: hysterectomy History [...] pain, chronic Expected: 02/18/2025 (Approximate), Expires: 02/18/2026 [facility] Work Phone: Comment on above: Expected: [...] for malign ant neoplasm of breast Mammogram [facility] Comment on above: Postponed from 05/13 (Patient Refused) Start: 08-20-2024 End: 08-20-2025 CBC W Auto Differential panel - Blood CBC and differential Lab Routine Medicare annual wellness visit, subsequent Primary hypertension (CMS/HCC) Expected: 08/20/2024 (Approximate), Expires: 08/20/2025 [facility] [employer] Work Phone: Comment on above: Expected: 08/20/2024 [...] EDT Ancillary Procedure [facility] [address] [place] [id number] [facility] Start: 08-06-2024 End: 08-06-2024 Patient encounter procedure 08/06/2024 9:30 AM EDT Office Visit [facility] [address] [facility] [address] [place] [address] Blu Kothari MD [address] [facility] [address] [place] [address] [facility] Start: 08-01-2024 Medicare Annual [...] Visit [facility] [address] [facility] [address] [place] [address] Isabel Catherine, SKOOG MACHINE OPERATOR [address] [facility] [place] [address] Right shoulder pain, unspecified chronicity [facility] Comment on above: Right shoulder pain, unspecified chronicity Start: 07-25-2024 Influenza vaccination Influenza Vacc ine (#1) [facility] Start: 07-21-2024 End: 07-21-2024 Patient encounter procedure 07/21/2024 2:45 PM EDT Office Visit [facility] [address] [facility] [address] [place] [address] Blu Kothari MD [address] [facility] [address] [place] [address] Arrived [facility] Comment on above: Arrived Start: 12-29-2023 End: 12-29-2023 Patient encounter procedure 12/29/2023 3:30 PM EST Office Visit [facility] [address] [facility] [address] [place] [address] Blu Kothari MD [address] [facility] [address] [place] [address] [facility] Start: 06-20-2022 Pneumococcal Vaccine : 65+ Years (2 - PCV) Pneumococcal Vaccine: 65+ Years (2 - PCV) [facility] Start: 06-20-2022 Pneumococcal Vaccine : 65+ Years (2 of 2 - PCV) Pneumococcal Vaccine: 65+ Years (2 of 2 - PCV) [facility] Start: 1995 Screening for malign ant neoplasm of breast Mammogram [facility] Start: 1955 Screening for malign ant neoplasm of colon [facility] Immunizations Immunization Date Immunization Notes Care Provider Vanessa higginbotham 10-10-2024 Pneumococcal Conjuga te PCV 20 Blu Kothari MD Work Phone: [facility] 10-03-2024 influenza, high dose seasonal, preservative-free Blu Kothari MD Work Phone: [facility] 08-07-2023 Influenza, Seasonal, Quadrivalent, Adjuvanted Blu Kothari MD Work Phone: [facility] 08-07-2023 influenza virus vacc ine, unspecified formulation Blu Kothari MD Work Phone: [facility] 11-10-2022 Influenza, High-dose Seasonal, Quadrivalent, Preservative Free Blu Kothari MD Work Phone: [facility] 03-02-2022 zoster vaccine recombinant Padma Kothari MD Work Phone: [facility] 11-30-2021 zoster vaccine recombinant Padma Kothari MD Work Phone: [facility] 09-04-2021 Influenza, High-dose Seasonal, Quadrivalent, Preservative Free Blu Kothari MD Work Phone: [facility] 06-20-2021 pneumococcal polysaccharide vaccine, 23 valent Blu Kothari MD Work Phone: [facility] 04-05-2021 tetanus toxoid, redu viridiana diphtheria toxoid, and acellular pertussis vaccine, adsorbed Blu Kothari MD Work Phone: [facility] 08-17-2020 Influenza, High-dose Seasonal, Quadrivalent, Preservative Free Blu Kothari MD Work Phone: [facility] Payers Date Payer Category Payer Self-pay 2023 Private Health Insurance [id number] 2023 Unknown [id number] 2022 Medicare [id number] 2022 Medicare [id number] 2022 Medicare [id number] 2022 Unknown [id number] [id number] 1959 Unknown [id number] 1955 Unknown [id number] 2.16.840.1.218831.3.579.2.593 1955 Unknown [id number] 2.16.840.1.767923.3.579.2.125 1955 Unknown [id number] 2.16.840.1.391815.3.579.2.1259 1955 Unknown [id number] 2.16.840.1.348488.3.579.2.1259 1955 Unknown [id number] 2.16.840.1.510478.3.579.2.1259 1955 Unknown [id number] 2.16.840.1.025061.3.579.2.1259 1955 Unknown [id number] 2.16.840.1.320331.3.579.2.1259 1955 Unknown [id number] 2.16.840.1.274387.3.579.2.1259 1955 Unknown [id number] 2.16.840.1.851749.3.579.2.1259 1955 Unknown [id number] 2.16.840.1.878112.3.579.2.1259 1955 Unknown [id number] 2.16.840.1.830961.3.579.2.1259 1955 Unknown [id number] 2.16.840.1.280078.3.579.2.9 1955 Unknown [id number] 2.16.840.1.751729.3.579.2.9 1955 Unknown [id number] 2.16.840.1.352760.3.579.2.1258 1955 Unknown [id number] 2.16.840.1.702429.3.579.2.9 1955 Unknown [id number] 2.16.840.1.544011.3.579.2.1258 1955 Unknown [id number] 2.16.840.1.736416.3.579.2.196 1955 Unknown [id number] 2.16.840.1.358689.3.579.2.196 1955 Unknown [id number] 2.16.840.1.996359.3.579.2.196 1955 Unknown [id number] 2.16.840.1.456857.3.579.2.196 Private Health Insurance [facility] [id number] Unknown [id number] 2.16.840.1.282600.3.579.2.531 Social History Date Type Detail Facility Start: 07-03-2023 Tobacco smoking stat [facility] Never smoked tobacco [facility] Start: 07-03-2023 End: 07-27-2024 Tobacco use and exposure Smokeless tobacco non-user [facility] Start: 11-14-2023 End: 07-21-2024 Alcohol intake Ex-drinker (finding) [facility] Start: 08-01-2023 End: 03-25-2025 History of Social function [facility] Start: 08-01-2023 End: 03-25-2025 Tobacco use panel [facility] Start: 07-04-2023 Alcohol Comment caffeine: 1-2 cups per day [facility] Start: 1955 Sex Assigned At Not on file N [facility] Start: 07-27-2024 Tobacco smoking stat [facility] Ex-smoker [facility] Work Phone: History of tobacco use Current smoker [facility] History of tobacco use Cigarette Smoker N [facility] Start: 08-20-2024 End: 03-25-2025 Alcoholic beverage intake Current drinker of alcohol (finding) [facility] Tobacco smoking stat [facility] Unknown if ever smoked [facility] Work Phone: Start: 03-19-2025 Sex Female (finding) [facility] Start: 1955 Sex Assigned At Female F [facility] Functional Status Date Assessment Result Facility 03-25-2025 Patient Health [facility] ionnaire 2 item (PHQ-2) [Reported] [facility] 03-07-2025 Patient Health [facility] ionnaire 2 item (PHQ-2) [Reported] [facility] Clinical Notes 12-29-2023 to 03-25-2025 Blu [...] 8 Multiple Vitamin (Multivitamin Adult) tablet Daily [place]-3 Fatty Acids (Fish Oil) 1000 MG capsule [...] cancer Father Past Medical History: Diagnosis Date 'Elqmc-cqj-aheoq' infant with signs of malnutrition Arthritis Cervical [...] Greater than 25 minutes was spent in yofb-uw-dbyb consultation and coordination of care. Follow up in about 6 months (around 09/25/2025) for Routine F/U. documented in this encounter [facility] 03-07-2025 History of Presen t illness [...] 8 Multiple Vitamin (Multivitamin Adult) tablet Daily [place]-3 Fatty Acids (Fish Oil) 1000 MG capsule [...] cancer Father Past Medical History: Diagnosis Date 'Dhfch-hal-whfki' infant with signs of malnutrition Arthritis Cervical [...] for Test/Lab Review. documented in this encounter [facility] 02-18-2025 History of Presen t illness [...] 8 Multiple Vitamin (Multivitamin Adult) tablet Daily. [place]-3 Fatty Acids (Fish Oil) 1000 MG capsule [...] cancer Father Past Medical History: Diagnosis Date 'Zuwhw-ysz-yfyso' with signs of malnutrition Arthritis Cervical spondylolysis [...] Status Glucose, UA 02/18/2025 Negative Negative - 2000(110) ++++ mg/dL Final Bilirubin, UA 02/18/2025 Negative Negative - 4(70) +++ mg/dL Final Ketones, UA 02/18/2025 Negative Negative - 160(16) ++++ mg/dL Final Spec Grav, UA 02/18/2025 1.005 1 - 1.03 Final Blood, UA 02/18/2025 Negative Negative - 50 Tan/mcL Final pH, UA 02/18/2025 6.5 5 - 9 Final Protein, UA 02/18/2025 Negative Negative - 2000(20) ++++ mg/dL Final Urobilinogen, UA 02/18/2025 0.2 [...] for Test/Lab Review. documented in this encounter [facility] 01-03-2025 History of Presen t illness [...] Referral Reason: Specialty Services Required Referral Location: [facility] Scheduling Requested Specialty: Physical Therapy Number [...] requiring urgent evaluation. documented in this encounter [facility] 12-02-2024 History of Presen t illness Narrative Images from the original note were not included. HISTORY OF PRESENT ILLNESS: POST OP PT Miguel Gonzalez is an 69 y.o. @ female. (EST PT) S/P (R) SHOULDER SCOPE 10/20/24 (6WKS 1DAY) S/P [facility]IDA PHYSICAL THERAPY ORDER (HAS NOT STARTED) HAS NOT STARTED PHYSICAL THERAPY YET ; STATES SHE DOES HAVE THERAPY SCHEDULED @ [facility] 12/06/24 IF SHE IS [address]ED TO DRIVE BY THEN OTHERWISE SHE WILL SCHEDULE WITH [facility]. PRESENTS WEARING SLING TODAY, INCORRECTLY. NOTES [...] Referral Reason: Specialty Services Required Referral Location: [facility] Scheduling Requested Specialty: Physical Therapy Number of Visits Requested: 1 ASSESSMENT: ICD-10-CM 1. S/P arthroscopy of right shoulder Z98.890 Ambulatory referral to Physical Therapy S/p rotator cuff repair and SAD Assessment & Plan 1. Post-operative status following right shoulder arthroscopy, rotator cuff repair, and subacromial decompression. She has expressed a preference for outpatient therapy at [place]. Given her satisfactory passive and active range [...] requiring urgent evaluation. documented in this encounter [facility] 11-04-2024 History of Presen t illness [...] requiring urgent evaluation. documented in this encounter [facility] 11-04-2024 Instructions MARIYA David - 11/04/2024 [...] soon as possible documented in this encounter [facility] 10-19-2024 Telephone encount er Note Post op pain rx. PDMP reviewed [facility] 10-19-2024 Miscellaneous Notes Formattin g of this note might be different from the original. Post op pain rx. PDMP reviewed documented in this encounter [facility] 09-23-2024 History of Presen t illness Narrative Images from the original note were not included. GENERAL HISTORY AND PHYSICAL: NAME: Miguel Gonzalez : 1955 HISTORY OF PRESENT ILLNESS: Miguel Gonzalez is an 69 y.o. @ female. Here for surgery instructions - (R) SHOULDER SCOPE 10/20/2024 @[facility] PAST MEDICAL HISTORY: Past Medical History: Diagnosis Date 'Wdcpb-cuf-yjjzo' infant with signs of malnutrition Arthritis Cervical [...] food Multiple Vitamin (Multivitamin Adult) tablet Daily [place]-3 Fatty Acids (Fish Oil) 1000 MG capsule [...] SX INSTRUCTIONS GIVEN TODAY 09/23 @8:30AM - ELSA ULTRASLING GIVEN TODAY ARTHREX NOTIFIED Patient presents [...] Follow up for 11/04 @1:30pm w/aline in [place]. documented in this encounter [facility] 09-15-2024 History of Presen t illness Narrative Images from the original note were not included. HISTORY OF PRESENT ILLNESS: EST PT Miguel Gonzalez is an 69 y.o. @ female. (EST PT) RECHECK (R) SHOULDER ; S/P HEP XRAYS, 07/27/24 IN [facility] MRI 08/11/24 IN [facility] NO MDP / PREDNISONE NO CORTISONE [...] food Multiple Vitamin (Multivitamin Adult) tablet Daily [place]-3 Fatty Acids (Fish Oil) 1000 MG capsule [...] Son Waite D.O. documented in this encounter [facility] 08-23-2024 Telephone encount er Note Spoke with patient she will see 09/15 for her next scheduled appt. [facility] 08-23-2024 Miscellaneous Notes Formattin g of this note might be different from the original. Spoke with patient she will see 09/15 for her next scheduled appt. Patient left requesting to go ahead and schedule her sx. Please advise [phone]. documented in this encounter [facility] 08-23-2024 Telephone encount er Note Patient left requesting to go ahead and schedule her sx. Please advise [phone]. [facility] 08-20-2024 History of Presen t illness [...] 3 Multiple Vitamin (Multivitamin Adult) tablet Daily. [place]-3 Fatty Acids (Fish Oil) 1000 MG capsule [...] cancer Father Past Medical History: Diagnosis Date 'Fjsxp-rua-syzik' infant with signs of malnutrition Arthritis Cervical [...] Do you have a medical power of jet engine mechanic?: Yes Objective : BP 138/86 Pulse 70 [...] shoulder The patient is seeing a medical microbiologist for this condition, treatment is deferred to that specialist. Correspondence from that specialist and any available testing were reviewed during today's visit. Follow up in about 3 months (around 11/19/2024) for Medication Follow Up. Electronically signed by Alexia Reid PA-C on August 20, 2024 documented in this encounter [facility] 08-13-2024 History of Presen t illness Narrative HISTORY OF PRESENT ILLNESS: EST PT Miguel Gonzalez is an 69 y.o. @ female. (EST PT ; LAST APPT W/ ISABEL) RECHECK (R) SHOULDER ; HERE FOR MRI RESULTS 08/11/24 IN [facility] XRAYS, 07/27/24 IN [facility] MRI 08/11/24 IN [facility] NO MDP / PREDNISONE NO CORTISONE [...] food Multiple Vitamin (Multivitamin Adult) tablet Daily [place]-3 Fatty Acids (Fish Oil) 1000 MG capsule [...] she states that she is going to [place] in 2 weeks and then her is scheduled to consult at [facility] 09/10 ; patient would like to hold [...] Son Waite D.O. documented in this encounter [facility] 07-27-2024 History of Presen t illness [...] MEDICAL HISTORY: Past Medical History: Diagnosis Date 'Mubpy-wyj-vdjjg' with signs of malnutrition Arthritis Cervical spondylolysis GERD (gastroesophageal reflux disease) Hypertension ([facility]/HCC) Shingles PAST SURGICAL HISTORY: Past Surgical History: [...] food Multiple Vitamin (Multivitamin Adult) tablet Daily [place]-3 Fatty Acids (Fish Oil) 1000 MG capsule [...] develop for requiring urgent evaluation. Isabel Catherine APRN-SUPERVISOR BRINE documented in this encounter [facility] 07-21-2024 History of Presen t illness [...] 3 Multiple Vitamin (Multivitamin Adult) tablet Daily. [place]-3 Fatty Acids (Fish Oil) 1000 MG capsule [...] cancer Father Past Medical History: Diagnosis Date 'Ywduv-okb-mjfhx' infant with signs of malnutrition Arthritis Cervical spondylolysis GERD (gastroesophageal reflux disease) Shingles Past Surgical History: Procedure Laterality Date APPENDECTOMY EGD 2013 HYSTERECTOMY IR NERVE BLOCK PROCEDURE Bilateral 09/01/2023 L4-S1 RADIOFREQUENCY ABLATION Bilateral 11/10/2023 L4-S1 TRIGGER FINGER RELEASE Right 2019 RF Visit Vitals BP 130/80 Pulse 79 [...] As Previously Scheduled. documented in this encounter [facility] 12-29-2023 Telephone encount er Note sent [facility] 12-29-2023 Miscellaneous Notes Formattin g of this note might be different from the original. sent documented in this encounter [facility] Evaluation note Diagnosis Cervical spondylosis [...] Primary Age-related osteoporosis without current pathological fracture (CMS/HCC) Primary hypertension (CMS/HCC) Unspecified essential hypertension Gastroesophageal reflux disease without esophagitis Esophageal reflux Lumbosacral spondylosis with radiculopathy Elevated LDL cholesterol level ([facility]/HCC) Shoulder capsulitis, right documented in this encounter [facility] HealthcareEvaluation note* Diagnosis Internal derangement of right shoulder- Primary Right shoulder pain, unspecified chronicity documented in this encounter [facility] Healthcare[facility] note* Diagnosis Internal derangement of right shoulder- Primary documented in this encounter [facility] Healthcare[facility] note* Diagnosis Medicare annual wellness visit, subsequent- Primary ACP (advance care planning) Other specified counseling Primary insomnia Persistent disorder of initiating or maintaining sleep Lumbosacral spondylosis with radiculopathy Post herpetic neuralgia (CMS/HCC) Herpes zoster with other nervous system complications Primary hypertension (CMS/HCC) Unspecified essential hypertension Gastroesophageal reflux disease without esophagitis Esophageal reflux Age-related osteoporosis without current pathological fracture (CMS/HCC) Cervical spondylosis without myelopathy Lumbar paraspinal muscle spasm Other symptoms referable to back Overweight (BMI 25.0-29.9) Overweight Elevated LDL cholesterol level (CMS/HCC) History of hysterectomy Acquired absence of both cervix and uterus Hypercalcemia Other problems related to lifestyle Internal derangement of right shoulder documented in this encounter [facility]Evaluation note* Diagnosis S/P arthroscopy of right [...] [facility] noteNo assessment information availableF[facility] Work Phone: Evaluation note* Diagnosis Lumbosacral spondylosis with radiculopathy- Primary documented in this encounter [facility] HealthcareReason for referral (narrative)* Consultation (Routine) - Pending Review Specialty Diagnoses / Procedures Referred By Contact Referred To Contact Orthopaedic Surgery Diagnoses Shoulder capsulitis, right Blu Kothari MD [address] [facility] [address] [place] [address] April Mercedse PA [address] [facility] [address] [place] [address] Referral ID Status Reason Start Date Expiration Date Visits Requested Visits Authorized [id number] Pending Review Specialty Services Required 07/21/2024 01/17/2025 [...] shoulder right wo IV contrast Isabel Catherine, SKOOG MACHINE OPERATOR [address] [place] [address] [facility] [address] [address] Referral ID Status Reason Start Date Expiration Date V isits Requested Visits Authorized [id number] Authorized 07/27/2024 01/23/2025 1 1 Chief Complaint and Reason for Visit Chief Complaint Admit Date M47.27 M41.25 M51.369 March 18, 2025 1 0:57am Additional Source Comments INFORMATION SOURCE (unrecogn ized section and content) DATE CREATED AUTHOR 12/29/2020 [facility] DATE CREATED AUTHOR AUTHOR'S ORGANIZ ATION 07/09/2021 [facility] DATE CREATED AUTHOR AUTHOR'S ORGANIZ ATION 02/26/2025 [facility] DATE CREATED AUTHOR AUTHOR'S ORGANIZ ATION 03/30/2025 [facility] EP[facility] DATE CREATED AUTHOR AUTHOR'S ORGANIZ ATION 04/09/2025 [facility] DATE CREATED AUTHOR AUTHOR'S ORGANIZ ATION 08/10/2025 [facility] Reason for Visit (unrecogniz ed section [...] Care Teams (unrecognized sec tion and content) Crushing Foreman Relationship Specialty Start Date End Date Blu Kothari MD [address] [facility] [address] [place] [address] PCP - General Internal Medicine 04/01/23 [employer] Foreman Relationship Specialty Start Date End Date Blu Kothari MD [address] [facility] [address] [place] [address] PCP - General Internal Medicine 04/01/23 Crushing Foreman Relationship Specialty Start Date End Date Blu Kothari MD [address] [facility] [address] [place] [address] PCP - General Internal Medicine 04/01/23 Cr[employer] Foreman Relationship Specialty Start Date End Date Blu Kothari MD [address] [facility] [address] [place] [address] PCP - General Internal Medicine 04/01/23 Crushing Foreman Relationship Specialty Start Date End Date Blu Kothari MD [address] [facility] [address] [place] [address] PCP - General Internal Medicine 04/01/23 Crushing Foreman Relationship Specialty Start Date End Date Blu Kothari MD [address] [facility] [address] [place] [address] PCP - General Internal Medicine 04/01/23 Crushing Foreman Relationship Specialty Start Date End Date Blu Kothari MD [address] [facility] [address] [place] [address] PCP - General Internal Medicine 04/01/23 Crushing Foreman Relationship Specialty Start Date End Date Blu Kothari MD [address] [facility] [address] [place] [address] PCP - General Internal Medicine 04/01/23 Crushing Foreman Relationship Specialty Start Date End Date Blu Kothari MD [address] [facility] [address] [place] [address] PCP - General Internal Medicine 04/01/23 [employer] Foreman Relationship Specialty Start Date End Date Blu Kothari MD [address] [place] [address] PCP - General Internal Medicine 04/01/23 Crushing Foreman Relationship Specialty Start Date End Date Blu Kothari MD [address] [place] [address] PCP - General Internal Medicine 04/01/23 Crushing Foreman Relationship Specialty Start Date End Date Blu Kothari MD [address] [place] [address] PCP - General Internal Medicine 04/01/23 Crushing Foreman Relationship Specialty Start Date End Date Blu Kothari MD [address] [place] [address] PCP - General Internal Medicine 04/01/23 Blu Kothari MD [address] [place] [address] PCP - ACO Reach 12/31/24 Crushing Foreman Relationship Specialty Start Date End Date Blu Kothari MD [address] [place] [address] PCP - General Internal Medicine 04/01/23 Blu Kothari MD [address] [place] [address] PCP - ACO Reach 12/31/24 Crushing Foreman Relationship Specialty Start Date End Date Blu Kothari MD [address] [place] [address] PCP - General Internal Medicine 04/01/23 Blu Kothari MD [address] [place] [address] PCP - ACO Reach 12/31/24 Crushing Foreman Relationship Specialty Start Date End Date Blu Kothari MD [address] [place] [address] PCP - General Internal Medicine 04/01/23 Blu Kothari MD [address] [place] [address] PCP - ACO Reach 12/31/24 Crushing Foreman Relationship Specialty Start Date End Date Blu Kothari MD [address] [place] [address] PCP - General Internal Medicine 04/01/23 Blu Kothari MD [address] [place] [address] PCP - ACO Reach 12/31/24 Crushing Foreman Relationship Specialty Start Date End Date Blu Kothari MD [address] [place] [address] PCP - General Internal Medicine 04/01/23 Blu Kothari MD [address] [place] [address] PCP - ACO Reach 12/31/24 Team Status: Active Member Role Status Dates Blu Kothari II MD Primary Care Provider Active Team Status: Inactive Member Role Status Dates Blu Kothari II MD Primary Care Provid er, Attending Provider Active Start: March 18, 2025 End: March 18, 2025 Crushing Foreman Relationship Specialty Start Date End Date Blu Kothari MD [address] [facility] [address] [place] [address] PCP - General Internal Medicine 04/01/23 lBu Kothari MD [address] [facility] [place] [address] PCP - ACO Reach 12/31/24 Goals (unrecognized [...] BE BASED ON THE PRIMARY CLINICAL RECORDS. [facility]. provides no warranty or guarantee of the accuracy or completeness of information in this document.
--- NOTE | 2025-08-11 07:45 | PM.CN ---
Consult Note: HPI Data of Consult Patient: known to practice within the last 3 years Consult date: 07/14/25 Requesting Physician: Tierney Kholi NP Primary Care Provider: CLAY TAVERAS Consult Narrative Reason for consult: back pain Narrative: Patricia Gonzalez a pleasant 70- year old female with chronic thoracic and lumbar pain presents for evaluation. Pain today 2/10 sharp stabbing, increasing to 7/10 with standing, walking, housework, activity. pain improved with sitting, lying, hot tub, and sleep. pt currently on mobic 15mg daily and tramadol 50mg PRN through PCP without side effects. continues to engage in HEP without benefit. recently underwent bilateral L2-3 L3-4 MBB #1 and #2 with >90% improvement in pain while anesthetized, preop pain up to 10/10 post op pain 0/10 per pt. denies falls/injury since last visit. cc:: CC: Tierney Kohli NP Review of Systems ROS Musculoskeletal Reports: back pain; Denies: extremity pain PFSH PFSH Medical History Low back pain ?M54.50 - Low back pain, unspecified (ICD-10) Osteoarthritis ?M19.90 - Unspecified osteoarthritis, unspecified site (ICD-10) Acid reflux ?K21.9 - Gastro-esophageal reflux disease without esophagitis (ICD-10) High cholesterol ?E78.00 - Pure hypercholesterolemia, unspecified (ICD-10) Hypertension ?I10 - Essential (primary) hypertension (ICD-10) Surgical History History of hysterectomy ?Z90.710 - Acquired absence of both cervix and uterus (ICD-10) History of appendectomy ?Z90.49 - Acquired absence of other specified parts of digestive tract (ICD-10) Social History Smoking status: Former smoker Meds Home Medications and Allergies Home Medications ?Medication ?Instructions ?Recorded ?Confirmed ?Type amlodipine 2.5 mg tablet 2.5 mg PO DAILY 08/04/23 08/08/25 History meloxicam 15 mg tablet 15 mg PO DAILY 08/04/23 08/08/25 History omeprazole 40 mg capsule,delayed 40 mg PO DAILY 08/04/23 08/08/25 History release rosuvastatin 10 mg tablet (Crestor) 10 mg PO DAILY 08/04/23 08/08/25 History alendronate 70 mg tablet mg PO 04/14/25 History tramadol 50 mg tablet mg 04/14/25 History Allergies Allergy/AdvReac Type Severity Reaction Status Date / Time lisinopril Allergy Cough Verified 08/08/25 06:57 Exam Constitutional Documenting provider has reviewed patient's vital signs: yes Common normals: no apparent distress, oriented x3, healthy appearing, alert and well nourished General appearance: cooperative HENNJ Common normals: normocephalic, hearing grossly normal bilaterally and moist oral mucous membranes Head and scalp: normocephalic Eye Common normals: PERRL Pupil: PERRL Neck & C-Spine Common normals: full ROM General: normal visual inspection Chest Common normals: inspection of chest normal Respiratory Common normals: normal respiratory effort, no retractions and no use of accessory muscles Back & Pelvis Lumbar spine/lower back: pain with ROM, lumbar spinal tenderness Lumbar spinal tenderness location: L1, L2, L3 and L4 and straight leg raise negative bilaterally Sacroiliac joints: SI joints normal Other: bilateral facet loading positive at L1-4 strength 5/5 in BLE sensation intact BLE Neuro Common normals: oriented x3 Sensorium/orientation: alert Psych Common normals: mental status grossly normal, thought process normal, cooperative, affect normal, speech normal and activity/motor behavior normal Speech: normal speech Thought process: normal thought process Results Additional Findings Additional findings: If on a controlled substance or opioids, I have checked an [place] report on this patient and there are no aberrancies noted in the prescribing history.??If on a controlled substance or opioid a drug screen was completed and reviewed within the last year, and if there has not been a drug screen completed we ordered one today to monitor higher risk, state monitored pain medication use. As part of providing excellent, safe, comprehensive care, the following was completed at our patient's visit: 1. A medication reconciliation and review to ensure accurate knowledge of current/active medications, including asking our patients to inform us about any lgok-mhi-qsqtfmn medications or herbal remedies/nutritional supplements/alternative remedies. 2. A review to specifically ensure our patients have had annual screening for screening for depression, screening for tobacco use, and screening for unhealthy alcohol use. For concerning screenings had a discussion with the patient, provided patient education, and recommended follow-up with primary care provider when appropriate. If patient noted with a risk of falling, they received education on strength, gait, and balance training to prevent future risk of falling. Portions of this note may have been carried over from the previous visit and updated as appropriate. Please note this office utilizes paper charting in addition to the electronic medical record. A list of current medications, vitals, and PMH is available there as the clinical staff outside of myself do not have access to [email or web address] charting during the clinic day operations. As part of providing quality comprehensive care the current medications, vitals, and PMH were reviewed in the paper chart. Assessment and Plan Assessment and Plan (1) Lumbar spondylosis: Assessment and Plan: The patient has had over 3 months of moderate to severe low back pain with functional impairment and inadequate response to conservative care including NSAIDS (unless there are contraindication such as concurrent blood thinners), multiple oral or topical pain medications, and home exercise program/physical therapy.? Patient has completed >6 weeks of guided home exercise program and/or formal physical therapy program without relief of their symptoms.? The Oswestry Disability Index was completed, and the patient scored a 16%.?? We discussed the risks and benefits of the procedure with the patient, and we are NOT planning on using sedation as outlined in the guidelines from Medicare unless there is a documented reason that sedation would be strongly recommended.?? ?The procedure will be completed with fluoroscopic guidance.? prior bilateral L4/5 L5/S1 facet RFA providing >50% improvement ongoing at those levels (2) Sacroiliitis: (3) Myofascial pain: Plan bilateral L2-3 L3-4 facet RFA for axial facet mediated low back pain secondary to lumbar facet arthropathy/lumbar spondylosis. will prescribe 10mg po valium 30-60mins prior to RFA due to anxiety and increased discomfort and movement during injection per pt continue medication management through PCP f/u 1 month after RFA
== END 2025-08-11 07:19 | disposition home or self-care (01) ==
PROVIDERS: PCP Internal Medicine; Visit Provider Nurse Practitioner
DX: M47.816 Spondylosis without myelopathy or radiculopathy, lumbar region (principal); M46.1 Sacroiliitis, not elsewhere classified; M79.18 Myalgia, other site
CPT/HCPCS: G0463

== ENCOUNTER 2025-09-19 10:16 | Day surgery (SDC) | payer OTHER, MEDICARE, SELFPAY ==
--- OUTSIDE RECORDS SUMMARY | 2025-09-19 10:19 | XMS_ITS | Clinical Summary ---
Author Organization [facility] Address [id number] [address] [place] [address] Care Team Providers Care Overweaver Name Role Phone Blu Kothari MD Primary Care Provider [phone] Allergies No known active allergies Medications MedicationSigDispense QuantityRefillsLast FilledStart DateEnd DateStatus rosuvastatin (CRESTOR) 10 mg tablet Take 10 mg by mouth daily.Active omeprazole (PriLOSEC) 40 mg capsule Take 40 mg by mouth daily.Active amLODIPine (NORVASC) 2.5 mg tablet Take 2.5 mg by mouth daily.Active meloxicam (MOBIC) 15 mg tablet Take 15 mg by mouth daily.Active traMADoL (ULTRAM) 50 mg tablet Take 50 mg by mouth every 6 (six) hours as needed for pain.Active cyanocobalamin (vitamin B-12) 100 MCG tablet Take 100 mcg by mouth daily.Active calcium carbonate (OS-TANA) 500 mg calcium (1,250 mg) chewable tablet Chew 1 tablet and swallow daily.Active magnesium oxide (MAG-OX) 400 mg tablet Take 400 mg by mouth daily.Active zinc gluconate 50 mg tablet Take 25 mg by mouth daily.Active cholecalciferol, vitamin D3, 400 units tablet Take 400 Units by mouth daily.Active stdnwnae-puuz-SG-calcium &mins (THERAGRAN-M) 9 mg iron-400 mcg tablet Take 1 tablet by mouth daily.Active omega 0-umd-zug-fish oil (FISH OIL) 300-1,000 mg capsule Take by mouth.Active aspirin 81 mg Take 81 mg by mouth daily.Active Social History Tobacco UseTypesPacks/DayYears UsedDateSmoking Tobacco: FormerSmokeless Tobacco: NeverAlcohol UseStandard Drinks/WeekCommentsYes0 (1 standard drink = 0.6 oz pure alcohol)occasionalPHQ-2AnswerDate RecordedTotal Yljzp825ChildcareAnswer Date CfmcrsrcYabmthstpYjyfbnx46/12/2019EmploymentAnswerDate RecordedEmployment Ynjsupw0905/05/2019Purpose - LifeAnswerDate RecordedPurpose and direction in life Hfhdcll48/11/2021CommentsNoSex and Gender InformationValueDate Recorded Sex Assigned at BirthNot on fileLegal GteXcczzq02/06/2015 12:12 PM EDTGender IdentityNot on fileSexual OrientationNot on file Last Filed Vital Signs Vital SignReadingTime TakenCommentsBlood Egyvclup326/9507 2:45 PM EDT Zzsbi769406/14/2020 2:45 PM GMRNzckiwpskii69.8 ??C (98.2 ??F)06/14/2020 12:41 PM EDTRespiratory Epdh420806/14/2020 12:41 PM EDTOxygen Rdtabybdej53%06/14/2020 2:45 PM EDTInhaled Oxygen Concentration--Ruestx69.6 kg (116 lb)06/09/2020 1:35 PM EDT Aythoy597.2 cm (4' 8 )06/09/2020 1:35 PM EDTBody Mass Index26.01006/09/2020 1:35 PM EDT Plan of Treatment Health MaintenanceDue DateLast DoneCommentsDepression Utpwemfcl85/20/1967Tobacco Yikzjqdov29/20/1967Adult BMI Oqqondnag43/20/1973DTaP,Tdap and Td Vaccines (1 - Tdap)1974Zoster (Shingles) Vaccine (1 of 2)2005Fall Risk Screening 2020Influenza Ytyzeyr3907/25/2025 Medical Devices Not on file Insurance Care Teams Team MemberRelationshipSpecialtyStart DateEnd Date Blu Kothari MD [address] [facility], [facility] [address] [place] [address] PCP - GeneralInternal Medicine06/09/20
--- OUTSIDE RECORDS SUMMARY | 2025-09-19 10:19 | XMS_ITS | Clinical Summary ---
Author Organization [facility] Healthcare Address [address] [place] [address] Care Team Providers Care Professor Of Political Science Name Role Phone Blu Kothari MD Primary Care Provider [phone] Allergies Active AllergyReactionsCriticalityNoted DateCommentsAce InhibitorsCough 07/03/2023 Medications MedicationSigDispense QuantityRefillsLast FilledStart DateEnd DateStatus Multiple Vitamin (Multivitamin Adult) tablet DailyActive CALCIUM-VITAMIN D PO Take by mouth DailyActive aspirin 81 MG EC tablet Take 81 mg by mouth DailyActive alendronate (Fosamax) 70 MG tablet Indications:Age-related osteoporosis without current pathological fractureTAKE 1 TABLET EVERY 7 DAYS IN THE MORNING WITH A FULL GLASS OF WATER, ON AN EMPTY STOMACH, AND DO NOT TAKE ANYTHING ELSE OR LIE DOWN FOR THE NEXT 30 MINUTES 4 tablet 1105Active traMADol (Ultram) 50 MG tablet Indications:Lumbosacral spondylosis with radiculopathyTake 1 tablet (50 mg) by mouth every 6 (six) hours if needed for severe pain 60 tablet 5Active omeprazole (PriLOSEC) [address] capsule Indications:Gastroesophageal reflux disease without esophagitisTAKE 1 CAPSULE BY MOUTH EVERY DAY IN THE MORNING before a meal 100 capsule 5Active amLODIPine (Norvasc) 2.5 MG tablet Indications:Primary hypertensionTake 1 tablet (2.5 mg) by mouth Daily 90 tablet 509/6Active meloxicam (Mobic) 15 MG tablet Indications:Cervical spondylosis without myelopathyTake 1 tablet (15 mg) by mouth Daily 90 tablet 506Active rosuvastatin (Crestor) 10 MG tablet Indications:Primary hypertensionTake 1 tablet (10 mg) by mouth Daily 90 tablet 3095008/12/2026ctive Active Problems ProblemNoted DateDiagnosed DateAge-related osteoporosis without current pathological uthilmfw80/05/2024ervical spondylosis without iwvlldoyeo44/10/2023 Elevated LDL cholesterol level07/03/2023astroesophageal reflux disease without czoymeohqsc37/10/2023History of nhavpyeuawpi89/10/6355Stghbonmidspq40/10/2023 Vmqwkuyyghyc03/10/6863Mtbxnckc84/10/2023Lumbar paraspinal muscle spasm07/03/2023 Lumbosacral spondylosis with ruebtsiuzwvfp27/10/2023Overweight (BMI 25.0-29.9) 07/03/2023ost herpetic /10/2023 Encounters DateTypeDepartmentCare KkrhVwjzxtfkpvw82/19/2025 9:00 AM EDTOffice Visit [facility] [place] [facility] [address] [address] [place] [phone] Blu Kotahri MD Lumbosacral spondylosis with radiculopathy (Primary Dx); Primary hypertension ; Cervical spondylosis without myelopathy; Elevated LDL cholesterol level ; Flu vaccine need08/12/2025amboo flowsheet [facility] [place] [facility] [address] [facility] [address] [place] [phone] Blu Kothari MD 08/12/20253917Kmatpg45/13/2025Orders Only [facility] [place] [facility] [address] [facility] [address] [place] [phone] Valery Guardado LPN Lumbosacral spondylosis with radiculopathy; Other idiopathic scoliosis, thoracolumbar region; Lumbar disc narrowingfrom Last 3 Months Immunizations ImmunizationAdministration DatesNext DueInfluenza, High Dose Seasonal, Preservative Free08/12/2025,10/03/2024Influenza, High-dose Seasonal, Quadrivalent, Preservative Free11/10/2022,09/04/2021,08/17/2020Influenza, Seasonal, Quadrivalent, Bfxiaaqdkq45/14/2023Pneumococcal Conjugate PCV 20 4Pneumococcal Polysaccharide XMTY26018203Dyqk01/13/2021Zoster, Ksbahmbgebw57,11/30/2021 Family History Medical HistoryRelationNameCommentsDiabetesFatherHeart diseaseFatherStomach cancerFatherDementiaMotherRelationNameStatusCommentsFatherDeceasedMotherDeceased Social History Tobacco UseTypesPacks/DayYears UsedDateSmoking Tobacco: FormerCigarettes Smokeless Tobacco: Never Tobacco Cessation:Counseling Given: Yes Alcohol UseStandard Drinks/WeekCommentsYes0 (1 standard drink = 0.6 oz pure alcohol)caffeine: 1-2 cups per dayPHQ-2AnswerDate RecordedPatient Health Questionnaire-2 Ctmak104CommentsUnknownSex and Gender InformationValueDate RecordedSex Assigned at BirthNot on fileLegal SexFemale 02/05/2023 7:17 PM EDTGender IdentityNot on fileSexual OrientationNot on file Last Filed Vital Signs Vital SignReadingTime TakenCommentsBlood Fcelxxqs289/8009 8:55 AM EDT Fyxxt815908/12/2025 8:55 AM OCAYpeqifxfhiv44.9 ??C (98.5 ??F)02/18/2024 10:32 AM EDTRespiratory Cqby435703/25/2025 8:54 AM EDTOxygen Zwpzmfucsu02%08/12/2025 8:55 AM EDTInhaled Oxygen Concentration--Pmousw51.8 kg (123 lb)08/12/2025 8:55 AM EDT Epmsuc104.8 cm (4' 9 )08/12/2025 8:55 AM EDTBody Mass Index26.62008/12/2025 8:55 AM EDT Plan of Treatment DateTypeDepartmentCare Team (Latest Contact Info)Cdmpktindpj63/19/2025 8:30 AM ESTOffice Visit NOMS [place] [facility] [address] [facility] [address] [place] [phone] Blu Kothari MD [address] [facility] [address] [place] [address] Health MaintenanceDue DateLast DoneCommentsCT Zymeurlikbbs1955Colonoscopy 1955FIT1955FOBT1955 1194Kvbotvtmqerru50/20/9927Mmqbhztkc93/20/1995 Colorectal Cancer Hzhboqxfp04/24/2026FIT-DNA, 05/30/2020, 05/30/2020, Additional history existsPneumococcal Vaccine: 65+ YearsCompleted 10/10/2024, 06/20/2021Influenza OksfxcrIdbvnxffs44/19/2025, 10/03/2024, 08/07/2023, Additional history exists Procedures Procedure NamePriorityDate/TimeAssociated DiagnosisCommentsTSH W/REFLEX TO FT4 Wobjbct8108/12/2025 10:07 AM EDT Primary hypertension Elevated LDL cholesterol level LIPID BQNWBRaxqruj56/19/2025 10:07 AM EDT Primary hypertension Elevated LDL cholesterol level COMPREHENSIVE METABOLIC EUTWRWmrsvbw77/19/2025 10:07 AM EDT Primary hypertension Elevated LDL cholesterol level CBC (INCLUDES DIFF/PLT)Pwwcbuf6708/12/2025 10:07 AM EDT Primary hypertension Lumbosacral spondylosis with radiculopathy Elevated LDL cholesterol level LAB COLOGUARD?? COLON CANCER HTHRHNKtdsoll79/24/2023 7:30 PM EDT Screening for colorectal cancer from Last 3 Months or Most Recently Relevant to Health Maintenance Results * TSH W/REFLEX TO FT4 (08/12/2025 10:07 AM EDT)ComponentValueRef RangeTest MethodAnalysis TimePerformed AtPathologist SignatureTSH W/REFLEX TO FT41.58 0.40 - 4.50 mIU/LQUESTSpecimen (Source)Anatomical Location / Laterality Collection Method / VolumeCollection TimeReceived Time08/12/2025 10:07 AM EDT 08/12/2025 10:07 AM EDT Narrative [facility] - 08/13/2025 3:11 AM EDT FASTING:YES FASTING: YES Resulting Agency Comment Performing Organization Information ?Site ID: QPT ?Name: [facility] ?Address: [facility] , [address] [place] [phone] ?Director: Truman Liao MD Authorizing ProviderResult TypeResult StatusDagerald Kothari MDLAB BLOOD ORDERABLESFinal ResultPerforming OrganizationAddressCity/State/ZIP CodePhone Number [facility] * (ABNORMAL) CBC and differential (08/12/2025 10:07 AM EDT)ComponentValueRef RangeTest MethodAnalysis TimePerformed AtPathologist SignatureWHITE BLOOD CELL COUNT5.93.8 - 10.8 Thousand/uLQUESTRED BLOOD CELL COUNT4.443.80 - 5.10 Million/dZEAZDNIBYABPKEVZ06.411.7 - 15.5 g/tCRKXEEGPYTTREVIX85.035.0 - 45.0 % ESVGPFDK85.880.0 - 100.0 qAQZAQIJFP63.227.0 - 33.0 rrDGLVYCFVG49.2(L)32.0 - 36.0 g/dLQUESTComment: For adults, a slight decrease in the calculated MCHC value (in the range of 30 to 32 g/dL) is most likely not clinically significant; however, it should be interpreted with caution in correlation with other red cell parameters and the patient's clinical condition. RDW12.911.0 - 15.0 %QUESTPLATELET UFBVK678896 - 400 Thousand/uLQUESTMPV9.87.5 - 12.5 fLQUESTABSOLUTE NEUTROPHILS2,5491,500 - 7,800 cells/uLQUESTABSOLUTE LYMPHOCYTES2,333012 - 3,900 cells/uLQUESTABSOLUTE RUCZXJYOV997755 - 950 cells/uL QUESTABSOLUTE XZGBRGJBLGY40912 - 500 cells/uLQUESTABSOLUTE ZWEDWNLIW023 - 200 cells/qYUOGLRIIYZRVXHRTC57.2%RKVLEVVRTECLNHMN20.0%PBHLNUISIMGCLL56.1%QUEST EOSINOPHILS6.3%QUESTBASOPHILS1.4%QUESTSpecimen (Source)Anatomical Location / LateralityCollection Method / VolumeCollection TimeReceived TimeBloodVenous blood specimen / Ckkxjia1808/12/2025 10:07 AM EDT08/12/2025 10:07 AM EDT Narrative [facility] - 08/13/2025 3:11 AM EDT FASTING:YES FASTING: YES Resulting Agency Comment Performing Organization Information ?Site ID: QPT ?Name: [facility] ?Address: [address] [place] [address], [address] [place] [phone] ?Director: Truman Liao MD Authorizing ProviderResult TypeResult StatusDagerald Kothari MDLAB BLOOD ORDERABLESFinal ResultPerforming OrganizationAddressCity/State/ZIP CodePhone Number [facility] * Lipid panel (08/12/2025 10:07 AM EDT)ComponentValueRef RangeTest Method Analysis TimePerformed AtPathologist SignatureCHOLESTEROL, ADNSY544<200 mg/dL QUESTHDL PRZOEHZVIUU40> OR = 50 mg/cFGLRHDGYEIBXHJTYZVB11<150 mg/dLQUESTLDL ONNRCMMTMNF10zp/dL (calc)QUESTComment: Reference range: <100 Desirable range <100 mg/dL for primary prevention; <70 mg/dL for patients with CHD or diabetic patients with > or = 2 CHD risk factors. LDL-C is now calculated using the Brad-Ej calculation, which is a validated novel method providing better accuracy than the Friedewald equation in the estimation of LDL-C. Brad HANKINS et al. MAMIE. 2013;310(19): 9587-4610 (http://education.[employer].SameDayPrinting.com/faq/EPQ864) CHOL/HDLC RATIO2.0<5.0 (calc)QUESTNON HDL IQPNZESMSZN05<130 mg/dL (calc)QUEST Comment: For patients with diabetes plus 1 major ASCVD risk factor, treating to a non-HDL-C goal of <100 mg/dL (LDL-C of <70 mg/dL) is considered a therapeutic option. Specimen (Source)Anatomical Location / LateralityCollection Method / Volume Collection TimeReceived TimeBloodVenous blood specimen / Dsqcidv2208/12/2025 10:07 AM EDT08/12/2025 10:07 AM EDT Narrative [facility] - 08/13/2025 3:11 AM EDT FASTING:YES FASTING: YES Resulting Agency Comment Performing Organization Information ?Site ID: QPT ?Name: [email or web address] ?Address: [address] [place] [address], [address] [place] [phone] ?Director: Truman Liao MD Authorizing ProviderResult TypeResult StatusDagerald Kothari MDLAB BLOOD ORDERABLESFinal ResultPerforming OrganizationAddressCity/State/ZIP CodePhone Number [facility] * (ABNORMAL) Comprehensive metabolic panel (08/12/2025 10:07 AM EDT)Component ValueRef RangeTest MethodAnalysis TimePerformed AtPathologist SignatureGlucose 9965 - 99 mg/dLQUESTComment: ? Fasting reference interval OLH658 - 25 mg/dLQUESTCreatinine0.52(L)0.60 - 1.00 mg/gCJTIEVQRIG342> OR = 60 mL/min/1.94n9EMSFXVVS/CREATININE RATIO23(H)6 - 22 (calc)ULKYFBvtsuz265585 - 146 mmol/LQUESTPotassium, Bld4.33.5 - 5.3 mmol/HMZWVEFskntkbo35477 - 110 mmol/LQUEST Carbon Gunamhi0108 - 32 mmol/AJPGCDHtpvont57.08.6 - 10.4 mg/dLQUESTPROTEIN, TOTAL6.86.1 - 8.1 g/dLQUESTALBUMIN4.33.6 - 5.1 g/dLQUESTGLOBULIN2.51.9 - 3.7 g/dL (calc)QUESTALBUMIN/GLOBULIN RATIO1.71.0 - 2.5 (calc)QUESTBILIRUBIN, TOTAL 0.50.2 - 1.2 mg/dLQUESTALKALINE HHOJXTKDJUW6506 - 153 U/SUJJZWQGH8829 - 35 U/L XPIRARDR775 - 29 U/LQUESTSpecimen (Source)Anatomical Location / Laterality Collection Method / VolumeCollection TimeReceived TimeBloodVenous blood specimen / Hxbcrkw3108/12/2025 10:07 AM EDT08/12/2025 10:07 AM EDT Narrative [facility] - 08/13/2025 3:11 AM EDT FASTING:YES FASTING: YES Resulting Agency Comment Performing Organization Information ?Site ID: QPT ?Name: [email or web address] ?Address: [address] , [address] [place] [address] ?Director: Truman Liao MD Authorizing ProviderResult TypeResult StatusDagerald Kothari MDLAB BLOOD ORDERABLESFinal ResultPerforming OrganizationAddressCity/State/ZIP CodePhone Number [facility] * Cologuard?? colon cancer screening (07/17/2023 7:30 PM EDT)ComponentValueRef RangeTest MethodAnalysis TimePerformed AtPathologist SignatureNONINV COLON CA DNA+OCC BLD SCRN STL-XSMNvonirrtMyxlqwhc22/01/2023 6:26 PM EDTEXPet360 (CLIA #:[id number])Comment: NEGATIVE TEST RESULT. A negative Cologuard result indicates a low likelihood that a colorectal cancer (CRC) or advanced adenoma (adenomatous polyps with more advanced pre-malignant features) ??is present. The chance that a person with a negative Cologuard test has a colorectal cancer is less than 1in 1500 (negative predictive value >99.9%) or has an advanced adenoma is less than 5.3% (negative predictive value 94.7%). These data are based on a prospective cross-sectional study of 10,000individuals at average risk for colorectal cancer who were screened with both Cologuard and colonoscopy. (Jo-Ann Jasso al, N Engl J Med 2014;370(14):5929-5965) The normal value (reference range) for this assay is negative. COLOGUARD RE-SCREENING RECOMMENDATION: Periodic colorectal cancer screening is an important part ofpreventive healthcare for asymptomatic individuals at average risk for colorectal cancer. ??Following a negative Cologuard result, the [place] [employer] and U.S. Multi-Society Task Force screening guidelines recommend a Cologuard re-screening interval of 3 years. References: [place] [employer] Guideline for Colorectal Cancer Screening: https://www.cancer.or g/cancer/cbipg-ojpsfp-qelgve/rvvkuuxeq-yeoxzpfbv-znxnyfi/acs-recommendations.htm zen; Ez BUSTAMANTE, Marla PORTILLO, Jessica BASILIO, Colorectal Cancer Screening: Recommendations for Physicians and Patients from the U.S. Multi-Society Task Force on Colorectal Cancer Screening , Am J Gastroenterology 2017; 112:5899-0334. TEST DESCRIPTION: Composite algorithmic analysis of stool DNA-biomarkers with hemoglobin immunoassay. ?? Quantitative values of individual biomarkers are not reportable and are not associated with individual biomarker result reference ranges. Cologuard is intended for colorectal cancer screening ofadults of either sex, 45 years or older, [...] Puentes et al, N Engl J Med 2014;370(14):9887-8217.) Cologuard may produce a false negative or false positive result (no colorectal cancer or precancerous polyp present at colonoscopy follow up). A negative Cologuard test result does not guarantee the absence of CRC or advanced adenoma (pre-cancer). The current Cologuard screening interval is every 3 years. ([place] [employer] and U.S. Multi-Society Task Force). Cologuard performance data in a 10,000 patient pivotal study using colonoscopy as the reference method can be accessed at the following location: www.[employer].com/results. Additional description of the Cologuard test process, warnings and precautions can be found at www.[employer].com. Specimen (Source)Anatomical Location / LateralityCollection Method / Volume Collection TimeReceived TimeStool specimen (specimen)07/17/2023 7:30 PM EDT 07/19/2023 4:57 PM EDT Narrative Authorizing ProviderResult TypeResult StatusDagerald ZAIDI MOLECULAR DIAGNOSTICS ORDERABLESFinal ResultPerforming OrganizationAddressCity/State/ZIP CodePhone Number .[facility] (CLIA #:[id number]) [address] [place] [address], [facility] (CLIA #:[id number]) [address] [phone] from Last 3 Months or Most Recently Relevant to Health Maintenance Insurance Care Teams Team MemberRelationshipSpecialtyStart DateEnd Date Blu Kothari MD [address] [facility] [address] [place] [address] PCP - GeneralInternal Medicine04/01/23
--- OUTSIDE RECORDS SUMMARY | 2025-09-19 10:32 | XMS_ITS | CCD ---
Author Organization [facility] Care Team Providers Care Blood Donor Recruiter Supervisor Name Role Phone BLU KOTHARI Attending BLU Champagne Consulting BLU Champagne Primary Care Unavailable BLU KOTHARI Admitting Blu Champagne MD Primary Care Provider [phone] Blu Kothari MD Unavailable Blu Kothari II Primary Care Provider [phone] Blu Kothari II Attending Provider Blu Kothari Attending Unavailable Blu Kothari Primary Care Unavailable Blu Kothari Admitting Unavailable Jeanne RIVERA, Bouchra Giordano Attending Unavailable Giberny RIVERA, Bouchra Giordano Attending Unavailable Giberny RIVERA, Bouchra Giordano Attending Unavailable Giberny RIVERA, Bouchra Giordano Attending Unavailable APRIL MERCEDES Attending Unavailable BLU KOTHARI Attending Unavailable BLU KOTHARI Referring Unavailable BLU KOTHARI Attending Unavailable BLU KOTHARI Attending Unavailable BLU KOTHARI Attending Unavailable ALEXIA REID Attending Unavailable JR. WAITE GEORGE C Attending Unavaila APRIL Shirley Attending Unavailable APRIL MERCEDES Attending Unavailable APRIL MERCEDES Attending Unavailable Allergies Allergy ClassificationReported Allergen(s)Allergy TypeDate of OnsetReaction(s) Facility (20 sources)Angiotensin-converting enzyme inhibitor agentDrug [id number] [facility] Medications Current Medications MedicationDrug Class(es)DatesSig (Normalized)Sig (Original)acetaminophen 325 mg / oxyCODONE hydrochloride 5 mg oral tablet (3 sources)Opioid AgonistStart: 11-04-2024 End: 18-57-5495uepy 1 tablet by mouth every six hours for painoxyCODONE- acetaminophen (Percocet) 5-325 MG tablet Indications: S/P arthroscopy of right shoulder Take 1 tablet by mouth every 6 (six) hours if needed for severe pain for up to 5 days 20 tablet 11/04/2024 11/09/2024 ActiveStart: 10-19-2024 End: 34-25-4878siaf 1 tablet by mouth every six hours for painoxyCODONE- acetaminophen (Percocet) 5-325 MG tablet Indications: Internal derangement of right shoulder Take 1 tablet by mouth every 6 (six) hours if needed for moderate pain for up to 5 days 20 tablet 10/19/2024 10/24/2024 Activealendronic acid 70 mg oral tablet (20 sources)BisphosphonateStart: 02-02-2024 End: 09-41-8013adcoqnggyuw (Fosamax) 70 MG tablet Indications: Age-related osteoporosis without current pathological fracture TAKE 1 TABLET EVERY 7 DAYS IN THE MORNING WITH A FULL GLASS OF WATER, ON AN EMPTY STOMACH, AND DO NOT TAKE ANYTHING ELSE OR LIE DOWN FOR THE NEXT 30 MINUTES 4 tablet 11 11/29/2024 Active amLODIPine 2.5 mg oral tablet (20 sources)Dihydropyridine Calcium Channel BlockerStart: 03-21-2025 End: 20-40-1099tayo 1 tablet by mouth once dailyamLODIPine (Norvasc) 2.5 MG tablet Indications: Primary hypertension Take 1 tablet (2.5 mg) by mouth Daily 90 tablet 3 08/12/2025 08/12/2026 ActiveStart: 74-82-6698jhzr 1 tablet by mouth once dailyamLODIPine (Norvasc) 2.5 MG tablet Indications: Primary hypertension (CMS/HCC) TAKE 1 TABLET BY MOUTH EVERY DAY FOR 100 DAYS 30 tablet 13 02/23/2024 Activetake 1 tablet by mouth in the morningamLODIPine (Norvasc) 2.5 MG tablet Take 2.5 mg by mouth in the morning. 0 Activeascorbic acid 60 mg / beta carotene 5000 unt / copper sulfate 40 mg / dl-alpha tocopheryl acetate 30 unt / sodium selenite 0.04 mg / zinc oxide 40 mg oral tablet (20 sources)Vitamin CMultiple Vitamin (Multivitamin Adult) tablet Daily Active aspirin 81 mg delayed release oral tablet (20 sources)Platelet Aggregation Inhibitor, Nonsteroidal Anti-inflammatory Drug take 1 tablet by mouth once dailyaspirin 81 MG EC tablet Take 81 mg by mouth Daily ActiveCALCIUM-VITAMIN D PO (20 sources)CALCIUM-VITAMIN D PO Take by mouth Daily ActiveCALCIUM-VITAMIN D PO Take by mouth Daily. ActiveCALCIUM-VITAMIN D PO Take by mouth Daily. 0 Active meloxicam 15 mg oral tablet (20 sources)Nonsteroidal Anti-inflammatory DrugStart: 01-21-2025 End: 84-96-3576npkn 1 tablet by mouth once dailymeloxicam (Mobic) 15 MG tablet Indications: Cervical spondylosis without myelopathy Take 1 tablet (15 mg) by mouth Daily 90 tablet 3 08/12/2025 08/12/2026 ActiveStart: 12-29-2023 End: 92-99-1926fybk 1 tablet by mouth at mealtimemeloxicam (Mobic) 15 MG tablet Indications: Cervical spondylosis without myelopathy Take 1 tablet (15 mg) by mouth in the morning. Take with food. 100 tablet 3 12/29/2023 ActiveOmega-3 Fatty Acids (Fish Oil) 1000 MG capsule delayed-release (20 sources) End: 78-78-2168Ebffy-3 Fatty Acids (Fish Oil) 1000 MG capsule delayed-release Take by mouth Daily 08/12/2025 DiscontinuedOmega-3 Fatty Acids (Fish Oil) 1000 MG capsule delayed-release Take by mouth Daily ActiveOmega-3 Fatty Acids (Fish Oil) 1000 MG capsule delayed-release Take by mouth Daily. ActiveOmega-3 Fatty Acids (Fish Oil) 1000 MG capsule delayed-release Take by mouth Daily. 0 Active omeprazole 40 mg delayed release oral capsule (20 sources)Proton Pump InhibitorStart: 53-42-2394mcud 1 capsule by mouth once daily before mealtimeomeprazole (PriLOSEC) [address] capsule Indications: Gastroesophageal reflux disease without esophagitis TAKE 1 CAPSULE BY MOUTH EVERY DAY IN THE MORNING before a meal 100 capsule 3 03/14/2025 ActiveStart: 99-09-2982dqjk 1 capsule by mouth before mealtimeomeprazole (PriLOSEC) [address] capsule Indications: Gastroesophageal reflux disease without esophagitis Take 1 capsule (40 mg) by mouth in the morning. Take before meals. 100 capsule 3 03/10/2024 Activetake 1 capsule by mouth before mealtimeomeprazole (PriLOSEC) [address] capsule Take 1 capsule by mouth in the morning. Take before meals. 0Active rosuvastatin calcium 10 mg oral tablet (20 sources)HMG-CoA Reductase InhibitorStart: 12-02-2023 End: 09-77-7234tuyt 1 tablet by mouth once dailyrosuvastatin (Crestor) 10 MG tablet Indications: Primary hypertension Take 1 tablet (10 mg) by mouth Daily 90 tablet 3 08/12/2025 08/12/2026 ActivetraMADol hydrochloride 50 mg oral tablet (20 sources)Opioid AgonistStart: 12-22-2023 End: 87-83-0612aina 1 tablet by mouth every six hours for paintraMADol (Ultram) 50 MG tablet Indications: Lumbosacral spondylosis with radiculopathy Take 1 tablet (50 mg) by mouth every 6 (six) hours if needed for severe pain 60 tablet 1 02/18/2025 Activevitamin b12 1 mg oral tablet (20 sources)Vitamin B12 End: 89-07-8298qbkd 1 tablet by mouth once dailycyanocobalamin (Vitamin B-12) 1000 MCG tablet Take 1,000 mcg by mouth Daily 08/12/2025 Discontinuedzinc gluconate 50 mg oral tablet (20 sources) End: 14-16-5003fjaf gluconate 50 MG tablet Take 25 mg by mouth in the morning. 08/12/2025 Discontinued Completed/Discontinued Medications MedicationDrug Class(es)DatesSig (Normalized)Sig (Original)magnesium oxide 400 mg oral tablet (4 sources) End: 84-63-8399kjmf 1 tablet by mouth in the morningmagnesium oxide (Mag-Ox) 400 mg tablet Take 400 mg by mouth in the morning and 400 mg before bedtime. 07/21/2024 DiscontinuedtiZANidine 2 mg oral tablet (3 sources)Central alpha-2 Adrenergic AgonistStart: 12-11-2023 End: 47-97-8153afbu 1 tablet by mouth twice daily as neededtiZANidine (Zanaflex) 2 MG tablet TAKE 1 TO 2 TABLETS BY MOUTH TWICE A DAY NEEDED FOR SPASM 12/1107/21/2024 Discontinued Problems Active Problems Problem ClassificationProblemDateDocumented DateEpisodic/ChronicAbdominal pain (6 sources)Right flank pain; Translations: [Unspecified abdominal pain] 26-67-5801MdyederwXikiqadwfxkthn/social admission (2 sources)Patient encounter status; Translations: [Other specified counseling] 16-13-5819EotfliruUmdtzmzlj of lipid metabolism (20 sources)Raised low density lipoprotein cholesterol; Translations: [Pure hypercholesterolemia, unspecified]Onset: 830764-43-5071VsxfjhoQdjugkogbv disorders (20 sources)Gastroesophageal reflux disease without esophagitis; Translations: [Gastro-esophageal reflux disease without esophagitis]Onset: 07-03-2023 94-22-4066YpiluscVnpespieg hypertension (20 sources)Hypertensive disorder; Translations: [Essential (primary) hypertension]Onset: 882496-65-2251KjabgkiFuhlezow; including migraine (1 source)Headache; including migraine; Translations: [HEADACHE UNSPECIFIED] Onset: 70-00-3655Aairfjdpanoks mental health disorders (2 sources)Primary insomnia; Translations: [Primary insomnia]73-13-3925Ubyiujr Osteoporosis (20 sources)Senile osteoporosis; Translations: [Age-related osteoporosis without current pathological fracture]Onset: 345097-76-0589QkjhnmdJihev bone disease and musculoskeletal deformities (4 sources)Idiopathic scoliosis of thoracic and lumbar spine; Translations: [Other idiopathic scoliosis, thoracolumbar region]19-12-1736IejisnqJjmih lower respiratory disease (1 source)Cough; Translations: [COUGH]Onset: 29-36-8368KzcedaihQlgcb non- traumatic joint disorders (8 sources)Derangement of right shoulder joint; Translations: [Other specific joint derangements of right shoulder, not elsewhere classified]18-14-7727Igksfjy Other nutritional; endocrine; and metabolic disorders (20 sources)Hypercalcemia; Translations: [Hypercalcemia]Onset: 07-03-2023 47-94-9237OgoguymBhfbsrhc codes; unclassified (12 sources)History of arthroscopic procedure on shoulder; Translations: [Other specified postprocedural states]08-65-5227GzxhajfxZtwtyijq codes; unclassified (2 sources)Other problems related to lifestyle; Translations: [Other problems related to lifestyle]17-67-3000FtipifaeZidhivxrugy; intervertebral disc disorders; other back problems (20 sources)Cervical spondylosis without myelopathy; Translations: [Spondylosis without myelopathy or radiculopathy, cervical region]Onset: 608251-73-9300 ChronicUnclassified (4 sources)CONTACT W/AND (SUSP) EXPOS COVID-19; Translations: [CONTACT W/AND (SUSP) EXPOS COVID-19]Onset: 12-21-2020 Past or Other Problems Problem ClassificationProblemDateDocumented DateEpisodic/ChronicMood disorders (20 sources)Mood disordersOnset: 917714-15-5424Qsvdv connective tissue disease (2 sources)Capsulitis; Translations: [Other enthesopathies, not elsewhere classified]15-13-1581RkyjeqrcYnwvj non-traumatic joint disorders (2 sources)Pain in right shoulder; Translations: [Pain in joint, shoulder region]51-78-2959OerpzwgvKdvkl nutritional; endocrine; and metabolic disorders (20 sources)Body mass index 25-29 - overweight; Translations: [Overweight]Onset: 520290-73-7653PctqnddhXexdgghi codes; unclassified (20 sources)Insomnia; Translations: [Insomnia, unspecified]Onset: 07-03-2023 21-33-1168NyuvyczvNyoxrrvwwuu; intervertebral disc disorders; other back problems (20 sources)Spasm of muscle of lower back; Translations: [Muscle spasm of back] Onset: 904118-10-1182KoimcxxkSowqk infection (20 sources)Postherpetic neuralgia; Translations: [Other postherpetic nervous system involvement]Onset: 789022-83-1272Hqjnmlmm Results Test NameValueInterpretationReference RangeFacilityCBC (INCLUDES DIFF/PLT)on 04-50-0745Chvyadqfz (Bld) [#/Vol]0.083 10*3/uLNormal0-200[facility] Comment on above:Performed By: #### 4180, 3160, 37586 #### [facility] [address], [address] [place] [phone] Truckload Owner Operator: Truman Liao MDBasophils/100 WBC (Bld)1.4 %NormalQuest DiagnosticsComment on above:Performed By: #### 6399, 7600, 52739 #### [facility] of [address], [address] [place] [address] Truckload Owner Operator: Truman Liao MDEosinophils (Bld) [#/Vol]0.372 10*3/uLNormal 15-500Quest DiagnosticsComment on above:Performed By: #### 6399, 7600, 27799 #### [facility] of [address], [address] [place] [address] Truckload Owner Operator: Truman SCRUGGSosinophils/100 WBC (Bld)6.3 %NormalQuest DiagnosticsComment on above:Performed By: #### 6399, 7600, 78330 #### [facility] of [address], [address] [place] [address] Truckload Owner Operator: Truman Liao MDErythrocyte distribution width (RBC) [Ratio] 12.9 %Qefnbt94.0-15.0Quest DiagnosticsComment on above:Performed By: #### 6399, 7600, 44039 #### [facility] of [address], [address] [place] [address] Truckload Owner Operator: Truman Liao MDHematocrit (Bld) [Volume fraction]43.0 %Normal 35.0-45.0[facility] DiagnosticsComment on above:Performed By: #### 6399, 7600, 46076 #### [facility] of [address], [address] [place] [address] Truckload Owner Operator: Truman Liao MDHemoglobin (Bld) [Mass/Vol]13.4 g/dLNormal 11.7-15.5Quest DiagnosticsComment on above:Performed By: #### 6399, 7600, 56947 #### [facility] of [address], [address] [place] [address] Truckload Owner Operator: Truman Liao MDLymphocytes (Bld) [#/Vol]2.301 10*3/uLNormal 850-3900Quest DiagnosticsComment on above:Performed By: #### 6399, 7600, 41883 #### [facility] of [address], [address] [place] [address] Truckload Owner Operator: Truman Liao MDLymphocytes/100 WBC (Bld)39.0 %NormalQuest DiagnosticsComment on above:Performed By: #### 6399, 7600, 57673 #### [facility] of [address], [address] [place] [address] Truckload Owner Operator: Truman Liao MDMCH (RBC) [Entitic mass]30.2 xyZzhtny27.0-33.0 [facility]osticsComment on above:Performed By: #### 6399, 7600, 35259 #### [facility] of [address], [address] [place] [address] Truckload Owner Operator: Truman MAURICIOCHC (RBC) [Mass/Vol]31.2 g/dLLow32.0-36.0 [facility]osticsComment on above:Result Comment: For adults, a slight decrease in the calculated MCHC value (in the range of 30 to 32 g/dL) is most likely not clinically significant; however, it should be interpreted with caution in correlation with other red cell parameters and the patient's clinical condition.Performed By: #### 6399, 7600, 23865 #### [facility] of [address], [address] [place] [address] Truckload Owner Operator: Truman MAURICIOCV (RBC) [Entitic vol]96.8 dACupmjg40.0-100.0 [facility]osticsComment on above:Performed By: #### 6399, 7600, 81389 #### [facility] of [address], [address] [place] [address] Truckload Owner Operator: Truman Liao MDMonocytes (Bld) [#/Vol]0.596 10*3/uLNormal 200-950Quest DiagnosticsComment on above:Performed By: #### 6399, 7600, 66120 #### [facility] of [address], [address] [place] [address] Truckload Owner Operator: Truman Liao MDMonocytes/100 WBC (Bld)10.1 %NormalQuest DiagnosticsComment on above:Performed By: #### 6399, 7600, 58136 #### [facility] of [place] [address], [address] [place] [address] Truckload Owner Operator: Truman Liao MDNeutrophils (Bld) [#/Vol]2.549 10*3/uLNormal 1500-7800Quest DiagnosticsComment on above:Performed By: #### 6399, 7600, 86489 #### [facility] of [address], [address] [place] [address] Truckload Owner Operator: Truman Liao MDNeutrophils/100 WBC (Bld)43.2 %NormalQuest DiagnosticsComment on above:Performed By: #### 6399, 7600, 67571 #### [facility] of [place] [address], [address] [place] [address] Truckload Owner Operator: Truman Liao MDPlatelet mean volume (Bld) [Entitic vol]9.8 fL Normal7.5-12.5Quest DiagnosticsComment on above:Performed By: #### 6399, 7600, 58971 #### [facility] of [place] [address], [address] [place] [address] Truckload Owner Operator: Truman Liao MDPlatelets (Bld) [#/Vol]308 10*3/uLNormal 140-400Quest DiagnosticsComment on above:Performed By: #### 6399, 7600, 50442 #### [facility] of [place] [address], [address] [place] [address] Truckload Owner Operator: Truman Liao MDRBC (Bld) [#/Vol]4.44 10*6/uLNormal3.80-5.10 [facility]osticsComment on above:Performed By: #### 6399, 7600, 99267 #### [facility] of [address], [address] [place] [address] Truckload Owner Operator: Truman BERNAL (d) [#/Vol]5.9 10*3/uLNormal3.8-10.8 [facility]osticsComment on above:Performed By: #### 6399, 7600, 08698 #### [facility] of [address], [address] [place] [address] Truckload Owner Operator: Truman Liao MDCOMPREHENSIVE METABOLIC PANELon 08-13-2025 Albumin [Mass/Vol]4.3 g/dLNormal3.6-5.1Quest DiagnosticsComment on above: Performed By: #### 6399, 7600, 23719 #### [facility] of [address], [address] [place] [address] Truckload Owner Operator: Truman Liao MDAlbumin/Globulin [Mass ratio]1.7 {ratio}Normal 1.0-2.5Quest DiagnosticsComment on above:Performed By: #### 6399, 7600, 72619 #### [facility] of [address], [address] [place] [address] Truckload Owner Operator: Truman Liao MDALP [Catalytic activity/Vol]38 U/ERuvama74-276 [facility]osticsComment on above:Performed By: #### 6399, 7600, 86735 #### [facility] of [address], [address] [place] [address] Truckload Owner Operator: Truman Liao MDALT [Catalytic activity/Vol]13 U/LNormal6-29 [facility]osticsComment on above:Performed By: #### 6399, 7600, 40322 #### [facility] of [address], [address] [place] [address] Truckload Owner Operator: Truman Liao MDAST [Catalytic activity/Vol]14 U/RKhurry64-01 [facility]osticsComment on above:Performed By: #### 6399, 7600, 39728 #### [facility] of [address], [address] [place] [address] Truckload Owner Operator: Truman Merati MDBilirubin [Mass/Vol]0.5 mg/dLNormal0.2-1.2 [facility]osticsComment on above:Performed By: #### 6399, 7600, 28918 #### [facility] of [address], [address] [place] [address] Truckload Owner Operator: Truman Liao MDCalcium [Mass/Vol]10.0 mg/dLNormal8.6-10.4 [facility]osticsComment on above:Performed By: #### 6399, 7600, 63304 #### [facility] of [address], [address] [place] [address] Truckload Owner Operator: Truman Liao MDChloride [Moles/Vol]108 mmol/KEhpgqb38-734 [facility]osticsComment on above:Performed By: #### 6399, 7600, 90296 #### [facility] of [place] [address] [employer]load Owner Operator: Truman Liao MDCO2 [Moles/Vol]27 mmol/OBreedr53-87Hezum DiagnosticsComment on above:Performed By: #### 6399, 7600, 23046 #### [facility] of [place] [address] [employer] Owner Operator: Truman ABDIreatinine [Mass/Vol]0.52 mg/dLLow0.60-1.00 [facility]osticsComment on above:Performed By: #### 6399, 7600, 49948 #### [facility] of [place] [address] [employer] Operator: Truman Liao MDGFR/1.73 sq M.predicted among non-blacks MDRD (S/P/Bld) [Vol rate/Area]100 mL/min/{1.73_m2}Normal> OR = 60[facility] Comment on above:Performed By: #### 6399, 7600, 72435 #### [facility] of [place] [address] [employer] Owner Operator: Truman Liao MDGlobulin (S) [Mass/Vol]2.5 g/dLNormal1.9-3.7 [facility]osticsComment on above:Performed By: #### 6399, 7600, 63035 #### [facility] [place] [address] [employer] Operator: Truman Liao MDGlucose [Mass/Vol]99 mg/cKHmdups43-50Ktvjg DiagnosticsComment on above:Result Comment: Fasting reference intervalPerformed By: #### 6399, 7600, 15199 #### [facility] [place] [address] [employer] Owner Operator: Truman Liao MDPotassium [Moles/Vol]4.3 mmol/LNormal3.5-5.3 [facility]osticsComment on above:Performed By: #### 6399, 0, 95100 #### [facility] [place] [address] [employer] Owner Operator: Truman Liao MDProtein [Mass/Vol]6.8 g/dLNormal6.1-8.1Quest DiagnosticsComment on above:Performed By: #### 6399, 7600, 04757 #### [facility] [place] [address] [employer] Owner Operator: Truman Liao MDSodium [Moles/Vol]143 mmol/KApwpwi249-421Znmig DiagnosticsComment on above:Performed By: #### 6399, 7600, 95342 #### [facility] of [place] [address] [employer]load Owner Operator: Truman Liao MDUrea nitrogen [Mass/Vol]12 mg/dLNormal7-25 [facility]osticsComment on above:Performed By: #### 6399, 7600, 28566 #### [facility] [place] [address] [employer]load Owner Operator: Truman Liao MDUrea nitrogen/Creatinine [Mass ratio]23 mg/mg High6-22Quest DiagnosticsComment on above:Performed By: #### 6399, 7600, 77680 #### [facility] [address], [address] [place] [address] Truckload Owner Operator: Truman Liao MDLIPID PANEL, STANDARDon 34-30-2580Fuapmpzzpax [Mass/Vol]174 mg/dLNormal<200[facility] DiagnosticsComment on above:Order Comment: FASTING:YES FASTING: YESPerformed By: #### 6399, 7600, 55008 #### [facility] [address], [address] [place] [address] Truckload Owner Operator: Truman Liao MDCholesterol in HDL [Mass/Vol]86 mg/dLNormal> OR = 50Quest DiagnosticsComment on above:Order Comment: FASTING:YES FASTING: YESPerformed By: #### 6399, 7600, 15383 #### [facility] [address], [address] [place] [address] Truckload Owner Operator: Truman Liao MDCholesterol in LDL [Mass/Vol]73 mg/dLNormal [facility]osticsComment on above:Order Comment: FASTING:YES FASTING: YESResult Comment: Reference range: <100 Desirable range <100 mg/dL for primary prevention; <70 mg/dL for patients with CHD or diabetic patients with > or = 2 CHD risk factors. LDL-C is now calculated using the Brad-Ej calculation, which is a validated novel method providing better accuracy than the Friedewald equation in the estimation of LDL-C. Brad HANKINS et al. MAMIE. 2013;310(19): 8392-0699 (http://education.You Software.Dryad/faq/YKV768)Performed By: #### 6399, 7600, 26212 #### [facility] [address], [address] [place] [address] Truckload Owner Operator: Truman ABDIholesterobharathi.total/Cholesterol in HDL [Mass ratio]2.0 {ratio}Normal<5.0Quest DiagnosticsComment on above:Order Comment: FASTING:YES FASTING: YESPerformed By: #### 6399, 7600, 46469 #### [facility] [place] [address] [employer] Owner Operator: Truman BERGMAN HDL OTTHPPZEYOQ23 mg/dL (calc)Normal<130 [facility] DiagnosticsComment on above:Order Comment: FASTING:YES FASTING: YESResult Comment: For patients with diabetes plus 1 major ASCVD risk factor, treating to a non-HDL-C goal of <100 mg/dL (LDL-C of <70 mg/dL) is considered a therapeutic option.Performed By: #### 6399, 7600, 59895 #### [facility] [place] [address] [employer] Owner Operator: Truman Liao MDTriglyceride [Mass/Vol]70 mg/dLNormal<150Quest DiagnosticsComment on above:Order Comment: FASTING:YES FASTING: YESPerformed By: #### 6399, 7600, 62752 #### [facility] [address], [address] [place] [address] Truckload Owner Operator: Truman Liao MDTS W/REFLEX TO FT4on 65-57-3390OCS W/REFLEX TO FT41.58 mIU/LNormal0.40-4.50Quest DiagnosticsComment on above:Performed By: #### 6399, 7600, 37355 #### [facility] [address], [address] [place] [address] Truckload Owner Operator: Truman Liao MDMR lumbar spine wo [facility] 19-17-6175JG lumbar spine wo [facility] [place] [address] MRI Report Signed Patient: Miguel Gonzalez MR#: [id number] : 1955 Acct:[id number] Age/Sex: 69 / F ADM Date: 03/18/25 Loc: MR Room: Type: [facility] Attending Dr: Blu Kothari II, MD [...] are minimal endplate marrow changes L2-3 and L1- L2. Moderate multilevel facet arthropathy. Disc [...] narrowing identified. L2-3: Broad-based disc bulge with stzo-sn-mivvvnbb facet arthropathy. Minimal foraminal narrowing. Canal is patent. L3-L4: Circumferential disc bulge with moderate facet arthropathy. Mild neural foraminal narrowing. Minimal central canal stenosis. L4-5: Disc desiccation. Moderate disc facet arthropathy. No significant central canal or neural from narrowing identified. L5-S1: Circumferential disc bulge with moderate facet arthropathy. Moderate right moderate left neural foraminal narrowing. MR/MR lumbar spine wo con IMPRESSION: Gntb-ty-ichxzzqq multilevel degenerative changes without high-grade canal or neural foraminal narrowing. Moderate left neural foraminal narrowing at L5-S1 Impression dictated by: Ever Odonnell M.D. 03/18/2025 3:49 PM Dictation Location: [place] [address] Transcribed By: [facility] 03/18/25 1549 Dictated By: Ever Odonnell MD 03/18/25 1509 Signed By: 03/18/25 1549[facility] reportOrdered By: Ever Odonnell on 64-32-9458Uyhhc reportCOSHOCTON [facility] [place] [address] [place] [address] MRI Report Signed Patient: Miguel Gonzalez MR#: [id number] : 1955 Acct:[id number] Age/Sex: 69 / F ADM Date: 5 Loc: MR Room: Type: [facility] Attending Dr: Blu Kothari II, MD [...] vertebral heights maintained. Slight heterogeneity of the bonemarrow signal noted. There are minimal endplate marrow [...] narrowing identified. L2-3: Broad-based disc bulge with paxx-aw-esugiphr facet arthropathy. Minimal foraminal narrowing. Canal is patent. L3-L4: Circumferential disc bulge with moderate facet arthropathy. Mild neural foraminal narrowing.Minimal central canal stenosis. L4-5: Disc desiccation. Moderate disc facet arthropathy. No significant central canal or neural from narrowing identified. L5-S1: Circumferential disc bulge with moderate facet arthropathy. Moderate right moderate left neural foraminal narrowing. MR/MR lumbar spine wo con IMPRESSION: Ryuo-hf-gmwvyfmu multilevel degenerative changes without high-grade canal or neural foraminal narrowing. Moderate left neural foraminal narrowing at L5-S1 Impression dictated by: Ever Odonnell M.D. 03/18/2025 3:49 PM Dictation Location: RADIO-PC-29 Transcribed By: NANCY 03/18/25 1549 Dictated By: Ever Odonnell MD 03/18/25 1509 Signed By: 03/18/25 1549 [facility] Work Phone: ct ABDOMEN PELVIS W IV CONTRASTon 18-79-8513GZ ABDOMEN PELVIS W IV CONTRASTCT of the abdomen and Pelvis CTDI is [...] is a prominent scoliosis ELECTRONICALLY SIGNED BY: Anna MeyerNot AvailableCREATININEon 88-28-8024Sfnlpytjxf [Mass/Vol]0.55 mg/dLNormal0.50-1.05Quest DiagnosticsComment on above:Performed By: #### 375 #### [facility] [address], [address] [place] [address] Truckload Owner Operator: Truman Liao MDGFR/1.73 sq M.predicted among non-blacks MDRD (S/P/Bld) [Vol rate/Area]99 mL/min/{1.73_m2}Normal> OR = 60[facility] Comment on above:Performed By: #### 375 #### [facility] [address], [address] [place] [address] Truckload Owner Operator: Truman Liao MDUrinalysis macro (dipstick) panel (U)on 84-75-6028Jrkgrnutc, UANegativeNegative - 4(70) +++ mg/dLNOMS HealthcareBlood, UANegativeNegative - 50 Tan/mcLNOMS HealthcareGlucose, UANegativeNegative - 2000(110) ++++ mg/dLNOMS HealthcareKetones, UANegativeNegative - 160(16) ++++ mg/dLNOMS HealthcareLeukocytes, UANegativeNegative - 500+++ [place]/mcLNOMS HealthcareNitrite, UANegativeNegative - PositiveNOMS HealthcarepH, UA6.55 - 9 NOMS HealthcareProtein, UANegativeNegative - 2000(20) ++++ mg/dLNOMS Healthcare Spec Grav, UA1.0051 - 1.03NOMS HealthcareUrobilinogen, UA0.20.2 - 12 mg/dLNOMS HealthcareNOMS HealthcareXR Shoulder - right 2 Viewson 73-51-6327Muqjfej Result: scapular Y and AP, and axillary x-rays of right shoulder showed humeral head to be well centered in the glenoid fossa. There was no evidence of subluxation or dislocation. There was no evidence of degenerative joint disease. Acromioclavicular joint appeared to be well preserved. There was no acute bony process including but not limited to fracture and/or dislocation. Impression: Unremarkable right shoulder. [facility]XR Shoulder - right 2 ViewsOrdered By: Jr. Waite on 08-02-[address] [facility] Work Phone: XR Shoulder - right 2 Viewson 83-18-9618Vsoampgvp Study observation (narrative)[facility] HealthcareCoding Summary.on 62-07-4832Khvahj Summary. CD:[id number]:[id number]+PGhlYWQ+CE9CMLHbJ66giFIpzB2KY9pQEB6BMXADHFIVOC1WIX5zg EG6HJlyI5PklzWm [file] ZTog (more content not included)...NormalFisher Mike Medical CenterED Note-Physicianon [id number] Note-PhysicianBasic Information Time Seen: Alesha SAWYER, Alexandr 04/05/2021 12:59 Chief Complaint Cat bites and [...] owns it. She states that the cat, Nelda chavez , is at her house quite frequently, and that they feed the cat. They are unsure of who the cats silk conditioner is. She states they are unsure whether the cat is up-to-date on its immunizations. She states that her dog is one after the cat, and she attempted to rock picker the cat when the cat turned [...] Appropriate mood & affect. Integumentary: Warm, Dry, Ewen. Puncture wounds noted to the left thumb proximal phalanx, bleeding is controlled. Multiple superficial scratches appreciated to the distal legs anteriorly with no active bleeding. Medical Decision Making X-rays of the left thumb shows no fracture no dislocation no radiopaque foreign body, I did discussrabies prophylaxis, however the patient refused this at this time. Her tetanus was updated, she will be started on Augmentin, she was placed in a thumb spica splint. Wounds were cleansed, and dressed, she is to return should new problems develop or other problems arise. She is to follow-up with herPCP in the next 2 to 3 days for recheck she understood and agreed with the plan. Assessment/Plan 1. Cat bite of left hand (S61.452A: Open bite of left hand, initial encounter) 2. Cat scratch of lower leg (S80.819A: Abrasion, unspecified lower leg, initial encounter) Orders: Thumb Spica Splint Application Wound Care Routine XR Finger(s) Min 2 Views Left Medications Administered Given bacitracin/neomycin/polymyxin B Top Oint, 1 linda, Topical bacitracin/neomycin/polymyxin B Top Oint, 1 linda, Topical tetanus/diphtheria/pertussis, acel (Tdap) 5 units-2 units-15.5 mcg/0.5 mL IM Susp 0.5 mL, 0.5 mL, IntraMuscular diphtheria/pertussis, acel/tetanus adult, IntraMuscular Disposition Plan Patient Discharge Condition Improved Discharge Disposition Discharge home Discharge Prescription List Prescriptions Augmentin 875 mg-125 mg Tab, 1 tab(s), Oral, BID mupirocin Top 2% Oint, 1 linda, Topical, TID Follow-up With When Contact Information BLU KOTHARI In 3 days 04/08/2021 EDT [address] [place] [address]- Business(1) Additional Instructions: Wear the splint for support, [...] data Historical No qualifying data Medications Inpatient bacitracin/neomycin/polymyxin B Top Oint, 1 linda, Topical, TID [...] no radiopaque foreign body noted. Read By: Bartolome Eudardo PA-CSycamore Medical CenterComment on above:Result Comment: Electronically Signed By: Alexandr Eduardo PA-C\.br\Date and Time Signed: 04/05/21 21:31 EDT\.br\Electronically Co- Signed By: Abdoulaye Watson M.D.\.br\Date and Time Co-Signed: 04/06/21 11:28 EDTAnimal Bite Investigationon 85-82-2248Bzoivl Bite Investigation [id number]:127Fisher-Titus Medical CenterConsent for Treatmenton 67-89-2603Mgciulh for Treatment [id number]:SrinivasanFisher-Titus Medical CenterDischarge Instructionson 62-57-6830Qgonvoctd Instructions [id number]:127[facility] Clinical Summaryon 53-89-9218VJ Clinical Summary [address] [address] ED Clinical Summary Person Information Name: MIGUEL GONZALEZ [place] Age: 65 Years : 1955 Sex: Female Language: Cambodian PCP: BLU KOTHARI MD Marital Status: Visit [...] 04/05/2021 14:46:42 04/05/2021 14:46:42 04/05/2021 14:46:42 ADDRESS: [address] [place] [address] DR WNE [place] [phone] PHYS DOC NOTES: MEDICAL INFORMATION: Prescriptions Given: New Medications Printed Prescriptions amoxicillin-clavulanate (Augmentin 875 mg-125 mg Tab) 1 Tablets By Mouth 2 times a day for 10 Days.Take one tab by mouth twice a day for ten days. Refills: 0. mupirocin topical (mupirocin Top 2% Oint) 1 Application Topical 3 times a day. Refills: 0. PATIENT EDUCATION INFORMATION: Instructions: Animal Bite, Adult Follow up: With: Address: When: BLU KOTHARI [address] [place] [address] [place], [place] [id number] [facility] (1) In 3 days 04/08/2021 Comments: Wear the splint for support, keep the area clean dry and covered, use the mupirocin ointment externally. Begin taking the Augmentin as directed. Tylenol Motrin for pain and swelling, have the wounds rechecked in the next 2 days. Return should new problems develop or other problems arise. DIAGNOSIS: 1:Cat bite of left hand; 2:Cat scratch of lower legNormalFisher Mike Medical CenterED Patient Education Noteon 20-50-6381TI Patient Education NoteInfectious Disease Animal Bite, Adult Animal bites range [...] bite from a stray or wild animal, suchas a raccoon, beltre, skunk, or bat. That [...] animal and how the bite happened. You mayalso have tests, such as: ? Blood tests [...] and water are not available, use hand chef de froid. ? Change your dressing as told by [...] bad smell. Medicines ? Take or apply zjcr-rma-ttjvpwp and prescription medicines only as told by [...] testing of a fluid sample from your wound(culture test). ? Treatment may include wound care, antibiotic medic (more content not included)...[facility] Patient Summaryon 29-19-3499CZ Patient Summary [place] [id number] Patient Discharge Instructions Person Information Name: MIGUEL GONZALEZ Age: 65 Years Arrival Date: 04/05/2021 12:55:11 Discharge Diagnosis: 1:Cat bite of left hand; 2:Cat scratch of lower leg Primary Care Physician: BLU KOTHARI MD Provider Information Primary Provider: Abdoulaye Watson M.D. Advanced Production Potter:Alexandr Eduardo PA-C The exam and treatment you received in the Emergency Department were for an urgent problem and are not intended as complete care. It is important that you follow up with a doctor, nurse practitioner,or physician?s cafe assistant for ongoing care. If your symptoms become worse or you do not improve as expected and you are unable to reach your usual health care provider, you should return to the Emergency Department. We are available 24 hours a day. MIGUEL GONZALEZ has been given the following list of patient education materials, prescriptions and follow-up instructions: Follow-up Instructions: With: Address: [facility]: BLU KOTHARI [address] [place] [address] [facility] (1) In 3 days 04/08/2021 Comments: Wear [...] opioids can be used to help relieve korwzklc-if-dcqtex pain and are often prescribed following a [...] and have fewer risks and side effects. Optionsmay include: ? Pain relievers such as acetaminophen, [...] unused prescription opioids: Find your community drug take- back program or [employer] mail-back program, or flush them down the toilet, following guidance from the Food and Drug (more content not included)...Normal [facility]itan HospitalVaccinationson 79-95-3521Tjobnmiincur [id number]#1.00CD:127NoSycamore Medical CenterXR Finger(s) Min 2 Views Lefton 85-25-0971EB Finger(s) Min 2 Views Left Exam Date/Time: [...] Amrit Hernandez M.D. Transcribed by: MAYELIN Technologist: PollySycamore Medical CenterCovid-19 PCR (CVDTBH)on 67-80-8230Vkrxc- PCRNOT DETECTEDNormalNOT DETECTEDThe Genesis HospitalComment on above:Result Comment: This test is not yet approved or cleared by the [place] FDA. When there are no FDA-approved or cleared tests available, and other criteria are met, FDA can make tests available under an emergency access mechanism called an Emergency Use Authorization (EUA). The EUA for this test is supported by the [place] of Health and Human Service's (HHS's) declaration [...] no longer be used). Performed By: #### CVDTBH #### [facility] [address], [place] [address] Adore Deutsch [facility] HospitalComment on above: Result Comment: This test is not yet approved or cleared by the [place] FDA. When there are no FDA-approved or cleared tests available, and other criteria are met, FDA can make tests available under an emergency access mechanism called an Emergency Use Authorization (EUA). The EUA for this test is supported by the [place] of Health and Human Service?s (HHS?s) declaration [...] the context of a patients recent exposures andthe presence of clinical signs and symptoms consistent with SARS-CoV-2.Performed By: #### CVDTBH #### [facility] [address], [place] [address] Adore Hale Vital Signs Date TimeVital SignValuePerforming JvmezvbrvFppcyqfj29-49-8464 08:55-0400Body xyqpuh781.8 cmDaadams Kothari MD Work Phone: NOJY Pznxyofuig73-04-0984 08:55-0400Body mass index (BMI) [Ratio]26.62 kg/g2YczepbBlu Kothari MD Work Phone: [facility] JosephVpieqmlnyu32-64-7543 08:55-0400Body reiaav41.79 kgBlu Kothari MD Work Phone: [facility]OC[facility] HospitalUligdpxwov92-93-9982 08:55-0400Diastolic blood adeuwcpr24 mm[Hg]Blu Kothari MD Work Phone: [facility]OC[facility] HospitalXhssbvebmq57-93-4158 08:55-0400Heart rate65 /min Blu Kothari MD Work Phone: [facility] JosephJyoirygdlx36-39-3975 08:55-6040CjR8% (BldA) [Mass fraction]97 %Blu Kothari MD Work Phone: NOC[facility] HospitalMqrepbovkp61-10-7262 08:55-0400Systolic blood nfahtqjx337 mm[Hg]Blu Kothari MD Work Phone: [facility] JosephHelkkosapp90-64-9161 08:54-0400Body wtnnuk005.8 cmBlu Kothari MD Work Phone: [facility] JosephWffxfvfvsp38-70-5443 08:54-0400Body mass index (BMI) [Ratio]26.81 kg/c0GreulmBlu Kothari MD Work Phone: [facility] JosephSazuwkhgpy45-54-0421 08:54-0400Body qifwdv26.2 kg Blu Kothari MD Work Phone: [facility] JosephPzkmvseslu84-11-3796 08:54-0400Diastolic blood prbewbol623 mm[Hg]Blu Kothari MD Work Phone: [facility] JosephPbdsjgaauh51-96-2400 08:54-0400Heart rate68 /min Blu Kothari MD Work Phone: [facility]OC[facility] HospitalDpsivotejw29-89-7429 08:54-0400Respiratory rate16 /minDpreston Kothari MD Work Phone: [facility] JosephGnmerolpmh55-41-5633 08:54-3752PuB8% (BldA) [Mass fraction]98 %Blu Kothari MD Work Phone: NOC[facility] HospitalShhffzlxry63-40-0294 08:54-0400Systolic blood liuvawos963 mm[Hg]Blu Kothari MD Work Phone: [facility] JosephLqrjhqdute21-32-0682 09:18-0400Body yptrfg174.8 cmBlu Kothari MD Work Phone: 1(652)[facility]-5064[facility] JosephRkkntljnwe56-62-3744 09:18-0400Body mass index (BMI) [Ratio]26.62 kg/r5HbgcyfBlu Kothari MD Work Phone: 1(031)[facility]-6859[facility] JosephMaeihhddev63-14-5432 09:18-0400Body rfkfex70.79 kgBlu Kothari MD Work Phone: 1([phone])[facility]-[address] [place], [place] [address]Lyrjnhskls81-27-7072 09:18-0400Diastolic blood ysygvotx13 mm[Hg]Blu Kothari MD Work Phone: 1(839)[facility] [place], [place] [address]Ikydkcoenf29-05-8318 09:18-0400Heart rate70 /min Blu Kothari MD Work Phone: 1(093)[facility] [place], [place] [address]Jlduvgekqa85-59-4279 09:18-5085KkP2% (BldA) [Mass fraction]99 %Blu Kothari MD Work Phone: 1(887)[facility]-[address] [place], [place] [address]Zhbuapdrtw13-98-5796 09:18-0400Systolic blood bbevynud911 mm[Hg]Blu Kothari MD Work Phone: 1(552)[facility] [place], [place] [address]Nlxjogxqyy06-43-7994 09:04-0400Body ofbpsv347.8 cmBlu Kothari MD Work Phone: 1(343)[facility] [place], [place] [address]Yykrkievek25-98-6869 09:04-0400Body mass index (BMI) [Ratio]26.83 kg/p3IpziqpBlu Kothari MD Work Phone: 1(325)[facility] [place], [place] [address]Ejlmkwbqmq16-58-5023 09:04-0400Body .25 kgBlu Kothari MD Work Phone: 1(943)[facility] [place], [place] [address]Rtrrdjdkzw01-51-3463 09:04-0400Diastolic blood vtwbpyht30 mm[Hg]Blu Kothari MD Work Phone: 1(612)[facility]-[address] [place], [place] [address]Fjittucdgk45-83-8006 09:04-0400Heart rate72 /min Blu Kothari MD Work Phone: 1(153)[facility]12[address] JosephZkxhvekqhv93-44-3055 09:04-5386IwO1% (BldA) [Mass fraction]98 %Blu Kothari MD Work Phone: [facility] JosephOcszjmppnh57-72-1270 09:04-0400Systolic blood settouby881 mm[Hg]Blu Kothari MD Work Phone: [facility] JosephOkhrhhmgtr84-62-7382 08:16-0400Body .8 cmMatthew Mercedes PA Work Phone: noCedar County Memorial HospitalXzdnhtyybe09-22-7897 08:16-0400Body mass index (BMI) [Ratio]25.75 kg/j5Ytitvqy Mercedes PA Work Phone: noCedar County Memorial HospitalEbltphrkxx24-56-2904 08:16-0400Body ouqajq57.98 kgMatthew Mercedes PA Work Phone: noCedar County Memorial HospitalXbxtyiirwq81-90-8181 08:35-0400Body aryilo186.8 cmKaren Hemmer PA Work Phone: [facility] JosephZrfgqhvzva32-10-5729 08:35-0400Body mass index (BMI) [Ratio]25.92 kg/h2Akmnn Hemmer PA Work Phone: [facility] JosephRbffrtygnz11-67-1348 08:35-0400Body yneozh66.34 kgKaren Hemmer PA Work Phone: [facility] JosephIgfeltfemz32-70-9248 08:35-0400Diastolic blood xzlndlny03 mm[Hg]Alexia Hemmer PA Work Phone: [facility] JosephVfkjrfyeuv09-86-2243 08:35-0400Heart rate70 /min Alexia Hemmer PA Work Phone: [facility] JosephKbxjtftavq51-72-1690 08:35-0400Respiratory rate16 /minKaren Hemmer PA Work Phone: [facility] JosephYytpyywulm56-49-0597 08:35-7619EcU3% (BldA) [Mass fraction]96 %Alexia Hemmer PA Work Phone: [facility] JosephLfehypnczc22-74-1557 08:35-0400Systolic blood lbavdxoy225 mm[Hg]Alexia Hemmer PA Work Phone: NOC[facility] HospitalVyecfmtsxp67-42-9627 11:58-0400Body .8 cmGrant Leroy DRY CLEANER APPRENTICE Work Phone: NOC[facility] HospitalEtllhhrovw56-66-9070 11:58-0400Body mass index (BMI) [Ratio]25.75 kg/z6Uqkku Leroy DRY CLEANER APPRENTICE Work Phone: [facility]OC[facility] HospitalGmhggebtdv15-37-0615 11:58-0400Body gxpugm75.98 kgGrant Leroy DRY CLEANER APPRENTICE Work Phone: [facility]OC[facility] HospitalSezawinrfk84-91-6872 14:44-0400Body ibzktk389.3 cmDaadams Kothari MD Work Phone: [facility]OC[facility] HospitalLikoaklpno80-43-3313 14:44-0400Body mass index (BMI) [Ratio]25.71 kg/c8EfciynBlu Kothari MD Work Phone: [facility]OC[facility] HospitalUewuwaawyz69-61-1182 14:44-0400Body kfqemz72.79 kgBlu Kothari MD Work Phone: [facility]OC[facility] HospitalRhxfziiplb84-48-3628 14:44-0400Diastolic blood wjtivsct74 mm[Hg]Blu Kothari MD Work Phone: NOC[facility] HospitalJljaanoqjs63-02-6120 14:44-0400Heart rate79 /min Blu Kothari MD Work Phone: [facility]OC[facility] HospitalRaeuxgbhkc17-38-1329 14:44-7952VfD9% (BldA) [Mass fraction]98 %Blu Kothari MD Work Phone: [facility]OC[facility] HospitalBgymrgqvou37-33-3394 14:44-0400Systolic blood ajnktrgw586 mm[Hg]Blu Kothari MD Work Phone: [facility] Encounters Encounter DateEncounter TypeCare ProviderFacilityStart: 08-12-2025 End: 36-81-4453Gdrzor flowsheetBlu Kothari MD Work Phone: [facility]OM[facility] Family MedinceStart: 08-12-2025 End: 78-80-1980Vzvgza flowsheetBlu Kothari MD Work Phone: NOSZ [facility]ermaine James MedinceStart: 08-12-2025 End: 64-73-4458Nacrjj outpatient visit 25 minutesBlu Kothari MD Work Phone: NOTU Jermaine James MedinceComment on above:Lumbosacral spondylosis with radiculopathy (Primary Dx); Primary hypertension ; Cervical spondylosis without myelopathy; Elevated LDL cholesterol levelStart: 08-12-2025 End: 49-47-8052xvdmvuqiolYBLLXN B BERRYNot AvailableStart: 08-08-2025 End: 57-99-4661bzzbezciwhDxuvizz Vytautas Giedraitis MDFacility:[facility] [place] Start: 07-11-2025 End: 29-63-2895qqwgiedfenOajicvr Vytautas Giedraitis MDFacility:[facility] [place] Start: 06-06-2025 End: 59-25-1930mljuybaqtlGovgybj Vytautas Giedraitis MDFacility:[facility] Start: 05-02-2025 End: 09-58-4236tjrcxvnltkZptuoxf Vytautas Giedraitis MDFacility:[facility] [place] Start: 03-25-2025 End: 59-15-3670Yoxujx Rosalio Kothari MD Work Phone: NOM[facility] CI FMStart: 03-25-2025 End: 91-14-9065Ntvlsj Rosalio Kothari MD Work Phone: [facility] CI FMStart: 03-25-2025 End: 46-22-6575Hjnsqc outpatient visit 25 minutesBlu Kothari MD Work Phone: [facility] CI FMComment on above:Lumbosacral spondylosis with radiculopathy (Primary Dx)Start: 03-25-2025 End: 91-16-1785kmhpqgujlpCWSION B BERRYNot AvailableStart: 03-18-2025 End: 26-75-1365Bqqrekj encounter procedureBlu Kothari II Work Phone: [facility] Work Phone: Start: 03-18-2025 End: 77-07-0202jkrimlxcumVfusbp Berry II Work Phone: [facility] Work Phone: Start: 03-07-2025 End: 18-61-7438Aevpqs Rosalio Kothari MD Work Phone: noMS CI FMStart: 03-07-2025 End: 46-72-1971Uzbrtu Rosalio Ktohari MD Work Phone: [facility] CI FMStart: 03-07-2025 End: 66-31-7195Kxcutg outpatient visit 25 minutesDaadams Kothari MD Work Phone: [facility] CI FMComment on above:Lumbosacral spondylosis with radiculopathy (Primary Dx); Right flank pain, chronic; Other idiopathic scoliosis, thoracolumbar region; Lumbar disc narrowingStart: 03-07-2025 End: 96-94-5550huyybpbetiLJTODN B BERRYNot AvailableStart: 02-24-2025 End: 85-13-1350pfgkgtwmpeOGAAJP B BERRYNot AvailableStart: 02-18-2025 End: 56-56-3609Dibmxy Rosalio Kothari MD Work Phone: [facility] CI FMStart: 02-18-2025 End: 52-25-6487Xyxrii Rosalio Kothair MD Work Phone: [facility] CI FMStart: 02-18-2025 End: 99-56-8364Xgmvrf outpatient visit 25 minutesDaadams Kothari MD Work Phone: [facility] CI FMComment on above:Lumbosacral spondylosis with radiculopathy (Primary Dx); Right flank pain, chronicStart: 02-18-2025 End: 85-52-0397baxhihyuhwDRWGOE B BERRYNot AvailableStart: 01-03-2025 End: 84-68-1648Vyzaku flowsApril MERAZ Work Phone: NOWJ SWS ORTHOStart: 01-03-2025 End: 40-54-0616Ybmdkr Karlos MERAZ Work Phone: noms SWS ORTHOStart: 01-03-2025 End: 03-44-9966Aatywj follow up visit related to original Rigoberto MERAZ Work Phone: noms SWS ORTHOComment on above:S/P arthroscopy of right shoulder (Primary Dx)Start: 01-03-2025 End: 82-00-5117npbyzhrbexNNEGYNI J MEYERNot AvailableStart: 12-02-2024 End: 09-31-0176Tnapts follow up visit related to original Rigoberto MERAZ Work Phone: noms SWS ORTHOComment on above:S/P arthroscopy of right shoulder (Primary Dx)Start: 12-02-2024 End: 82-52-5944yopwyexcryMMUSFZK J MEYERNot AvailableStart: 12-02-2024 End: 16-09-6390Anjvvb Karlos MERAZ Work Phone: noms SWS ORTHOStart: 12-02-2024 End: 18-10-6041Ktuvzt Karlos MERAZ Work Phone: noms SWS ORTHOStart: 11-04-2024 End: 85-57-0215Ekmjoc Karlos MERAZ Work Phone: NOXR SWS ORTHOStart: 11-04-2024 End: 83-15-9886Lpdekq flowsApril MERAZ Work Phone: noms SWS ORTHOStart: 11-04-2024 End: 74-29-0658Nbqmwf follow up visit related to original Rigoberto MERAZ Work Phone: noms SWS ORTHOComment on above:S/P arthroscopy of right shoulder (Primary Dx)Start: 11-04-2024 End: 84-68-8158wlzrqcofozGBVMVZW J MEYERNot AvailableStart: 10-19-2024 End: 43-97-2532QuecbjDvnxn T Olsen DRY CLEANER APPRENTICE Work Phone: noms FB ORTHOPAEDICSComment on above:Internal derangement of right shoulder (Primary Dx)Start: 09-23-2024 End: 34-81-9621Jfprul Karlos MERAZ Work Phone: noms [facility] ORTHOStart: 09-23-2024 End: 19-60-6820Jpvzyt flowsApril MERAZ Work Phone: noms [facility] ORTHOStart: 09-23-2024 End: 61-77-8101Phruwkn encounter procedureApril MERAZ Work Phone: noms [facility] ORTHOComment on above:Pre-op examination (Primary Dx)Start: 09-23-2024 End: 16-11-3505Vqjmryanowrwt examination doneApril MERAZ Work Phone: noms [facility] Work Phone: Start: 09-23-2024 End: 32-11-3999cycjktrafeQIYIDBW J MEYERNot AvailableStart: 09-15-2024 End: 20-31-6235Rxvdfo flowsheetJr. Son Waite DO Work Phone: noms SWS ORTHOStart: 09-15-2024 End: 84-13-7934Klclmm flowsheetJr. Son Guerrero Stepanic DO Work Phone: noms SWS ORTHOStart: 09-15-2024 End: 79-50-8555Hozfwo outpatient visit 25 minutesJr. Son Guerrero Stepanic DO Work Phone: noms SWS ORTHOComment on above:Internal derangement of right shoulder (Primary Dx)Start: 09-15-2024 End: 03-18-4008yhbbrcrkqaUE., SON Portillo AvailableStart: 08-23-2024 End: 87-41-3075Qmjbjvuds encounterJr. Son Guerrero Stepanic DO Work Phone: noms SWS ORTHOComment on above:SurgeryStart: 08-20-2024 End: 06-14-4019Yzbxdl flowsMarii MERAZ Work Phone: [facility] CI FMStart: 08-20-2024 End: 89-79-8852Ebzqkg flowsMarii MERAZ Work Phone: [facility] CI FMStart: 08-20-2024 End: 02-92-2529Aiundkm encounter procedureAlexia MERAZ Work Phone: noMS CI FMComment on above:Medicare annual wellness visit, subsequent (Primary Dx); ACP (advance care planning); Primary insomnia; Lumbosacral spondylosis with radiculopathy; Post herpetic neuralgia (CMS/HCC); Primary hypertension (CMS/HCC); Gastroesophageal reflux disease without esophagitis; Age-related osteoporosis without current pathological fracture (CMS/HCC); Cervical spondylosis without myelopathy; Lumbar paraspinal muscle spasm; Overweight (BMI 25.0-29.9); Elevated LDL cholesterol level (CMS/HCC); History of hysterectomy; Hypercalcemia; Other problems related to lifestyle; Internal derangement of right shoulderStart: 08-20-2024 End: 05-27-9648oiqppyapibNKRKN M HEMMERNot AvailableStart: 08-13-2024 End: 85-50-0457Ngbqbx flowsheetJr. Son Guerrero Stepanic DO Work Phone: [facility] ORTHOStart: 08-13-2024 End: 22-75-0661Zylxsx flowsheetJr. Son Guerrero Stepanic DO Work Phone: noms SWS ORTHOStart: 08-13-2024 End: 64-34-4165Kceurl outpatient visit 25 minutesJr. Son Guerrero Stepanic DO Work Phone: noms SWS ORTHOComment on above:Internal derangement of right shoulder (Primary Dx)Start: 07-27-2024 End: 43-80-7523Waqjdp flowsNeda Leroy NP Work Phone: [facility] ORTHOPAEDICSStart: 07-27-2024 End: 25-19-5749Pflglk flowsNeda Leroy DRY CLEANER APPRENTICE Work Phone: [facility] CI ORTHOPAEDICSStart: 07-27-2024 End: 04-21-2931Tjujsz outpatient new 30 minutesIsabel Leroy DRY CLEANER APPRENTICE Work Phone: [phone] CI ORTHOPAEDICSComment on above:Internal derangement of right shoulder (Primary Dx); Right shoulder pain, unspecified chronicityStart: 07-21-2024 End: 16-84-6483Cksvbk outpatient visit 25 minutesDaadams Kothari MD Work Phone: [phone] CI FMComment on above:Cervical spondylosis without myelopathy (Primary Dx); Age-related osteoporosis without current pathological fracture ([facility]); Primary hypertension ([facility]); Gastroesophageal reflux disease without esophagitis; Lumbosacral spondylosis with radiculopathy; Elevated LDL cholesterol level ([facility]); Shoulder capsulitis, rightStart: 07-21-2024 End: 80-32-4659Dmbxvu Rosalio Kothari MD Work Phone: [phone] CI FMStart: 07-21-2024 End: 58-23-5758Puikql Rosalio Kothari MD Work Phone: [phone] CI FMStart: 64-56-9807PjobmtOnjzfc B Berry MD Work Phone: [facility] CI FMComment on above:Cervical spondylosis without myelopathy (Primary Dx)Start: 12-21-2020 End: 50-04-2104Fhjygtu encounter procedureDAADAMS KOTHARIFacility:H1 Procedures DateProcedureProcedure DetailPerforming ClinicianStart: 01-92-9161XM lumbar spine wo June Kothari II Work Phone: Start: 59-76-7952Vdhea dip stick/tablet rgnt non-auto w/o micrscpDpreston Kothari MD Work Phone: Start: 76-64-5960Zrxmz shoulder complete minimum 2 viewsIsabel Leroy DRY CLEANER APPRENTICE Work Phone: Start: 07-03-2023H/O: hysterectomyHistory of hysterectomyBlu Kothari MD Work Phone: H/O: hysterectomyHistory of hysterectomyAlexia MERAZ Work Phone: Plan of Treatment DateCare ActivityDetailAuthorStart: 66-50-9676Eyywnejxl for malignant neoplasm of colonNOMS HealthcareStart: 09-27-2025Medicare Annual Wellness (AWV)Medicare Annual Wellness (AWV)[facility]S HealthcareStart: 08-12-2025 End: 22-22-2640Imdubgfrgssnq metabolic 2000 panel - Serum or PlasmaComprehensive metabolic panel Lab Routine Primary hypertension Elevated LDL cholesterol level Expected: 08/12/2025 (Approximate), Expires: 08/12/2026NOMS HealthcareComment on above:Expected: 08/12/2025 (Approximate), Expires: 08/12/2026Start: 08-12-2025 End: 63-58-0503Bfdav 1996 panel - Serum or PlasmaLipid panel Lab Routine Primary hypertension Elevated LDL cholesterol level Expected: 08/12/2025 (Approximate), Expires: 08/12/2026NOMS HealthcareComment on above:Expected: 08/12/2025 (Approximate), Expires: 08/12/2026Start: 08-12-2025 End: 27-24-9794TBS W/REFLEX TO FT4TSH W/REFLEX TO FT4 Lab Routine Primary hypertension Elevated LDL cholesterol level Expected: 08/12/2025 (Approximate), Expires: 08/12/2026NOMS HealthcareComment on above:Expected: 08/12/2025 (Approximate), Expires: 08/12/2026Start: 08-12-2025 End: 16-89-2684Rytoiay encounter ttswnutjv88/19/2025 9:00 AM EDT Office Visit [facility] [place] [facility] [address] [facility] [address] [place] [id number] Blu Kothari MD [address] [facility] [address] [place] [address] [facility] [place] DiaznceComment on above:ArrivedStart: 75-07-7371Keqkuqgtr vaccinationInfluenza Vaccine (#1)N[facility]S HealthcareStart: 37-46-3426Zpirnuuhy vaccinationInfluenza Vaccine (#1)NOMS HealthcareComment on above:Postponed from 07/25/2024 (Patient Refused)Start: 03-25-2025 End: 16-94-9610Lpbvpxt encounter procedureNOMS CI FMComment on above:Arrived Start: 03-07-2025 End: 97-94-5109MU Lumbar spine WO contrastMR lumbar spine wo contrast Imaging Routine Lumbosacral spondylosis with radiculopathy Other idiopathic scoliosis, thoracolumbar region Lumbar disc narrowing Expected: 03/07/2025 (Approximate), Expires: 03/07/2026[facility] Work Phone: Comment on above:Expected: 03/07/2025 (Approximate), Expires: 03/07/2026Start: 03-07-2025 End: 57-91-3405Cdqigca encounter procedureNOMS CI FMComment on above:Arrived Start: 02-18-2025 End: 68-24-0056Jmcgcqvrza [Mass/volume] in Serum or PlasmaCreatinine, Serum Lab Routine Right flank pain, chronic Expected: 02/18/2025 (Approximate), Expires: 02/18/2026NOID HealthcareComment on above:Expected: 02/18/2025 (Approximate), Expires: 02/18/2026Start: 02-18-2025 End: 25-23-3793DX Abdomen and Pelvis W contrast IVCT abdomen pelvis w IV contrast Imaging Routine Right flank pain, chronic Expected: 02/18/2025 (Appr oximate), Expires: 02/18/2026[facility] Work Phone: Comment on above:Expected: 02/18/2025 (Approximate), Expires: 02/18/2026Start: 02-18-2025 End: 46-94-0887Bafqjjy encounter procedureNOMS CI FMComment on above:Arrived Start: 01-03-2025 End: 63-02-6474Mdubpzf encounter procedureNOMS SWS ORTHOComment on above:S/P arthroscopy of right shoulder (Primary Dx)Start: 12-02-2024 End: 30-47-3129Rzivymr encounter procedureNOMS SWS ORTHOComment on above:S/P arthroscopy of right shoulder (Primary Dx)Start: 11-04-2024 End: 24-95-4177Pldinqg encounter procedureNOMS SWS ORTHOComment on above:S/P arthroscopy of right shoulder (Primary Dx)Start: 09-23-2024 End: 55-16-8105Rgdpetf encounter procedureNOMS SWS ORTHOComment on above:Pre-op examination (Primary Dx)Start: 09-15-2024 End: 99-76-0179Iygckvg encounter procedureNOMS SWS ORTHOComment on above:Arrived Start: 45-64-3406Hhdndnnas for malignant neoplasm of breastMammogramNOMS HealthcareComment on above:Postponed from 1995 (Patient Refused)Start: 08-20-2024 End: 75-29-8577EWN W Auto Differential panel - BloodCBC and differential Lab Routine Medicare annual wellness visit, subsequent Primary hypertension (CM S/HCC) Expected: 08/20/2024 (Approximate), Expires: 08/20/2025[facility] Work Phone: Comment on above:Expected: 08/20/2024 (Approximate), Expires: 08/20/2025Start: 08-20-2024 End: 50-39-4870Clelzaalzafeh metabolic 2000 panel - Serum or PlasmaComprehensive metabolic panel Lab Routine Medicare annual wellness visit, subsequent Primary hypertension (CMS/HCC) Elevated LDL cholesterol level (CMS/HCC) Hypercalcemia Expected: 08/20/2024 (Approximate), Expires: 08/20/2025NOMS HealthcareComment on above:Expected: 08/20/2024 (Approximate), Expires: 08/20/2025Start: 08-20-2024 End: 22-01-4506TLKXELTNK C AB W/RFL RNS, PCR W/RFL GENOTYPE,LIPAHEPATITIS C AB W/RFL RNS, PCR W/RFL GENOTYPE,LIPA Lab Routine Medicare annual wellness visit, subsequent Other problems related to lifestyle Expected: 08/20/2024 (Approximate), Expires: 08/20/2025NOMS HealthcareComment on above:Expected: 08/20/2024 (Approximate), Expires: 08/20/2025Start: 08-20-2024 End: 11-99-6576Mxmsu 1996 panel - Serum or PlasmaLipid panel Lab Routine Medicare annual wellness visit, subsequent Primary hypertension (CMS/HCC) El evated LDL cholesterol level (CMS/HCC) Expected: 08/20/2024 (Approximate), Expires: 08/20/2025NOMS HealthcareComment on above:Expected: 08/20/2024 (Approximate), Expires: 08/20/2025Start: 08-20-2024 End: 12-41-3261Uyawoib encounter procedureNOMS CI FMComment on above:Arrived Start: 08-13-2024 End: 46-38-2863Wpgbcib encounter procedureNOMS SWS ORTHOComment on above:Arrived Start: 08-11-2024 End: 19-98-5314Ygquprhupmvr / ancillary services efgvsajtsc31/18/2024 8:00 AM EDT Ancillary Procedure N[facility] MR [address] [place] [address] IMSF SH MRStart: 08-06-2024 End: 46-07-5433Htjxtsk encounter idcajkrga16/13/2024 9:30 AM EDT Office Visit [facility] CI FM [address] [facility] [address] [place] [phone] Blu Kothari MD [address] [facility] [address] [place], [place] [id number] NOMS CI FMStart: 09-08-2024Medicare Annual Wellness (AWV) Medicare Annual Wellness (AWV)N[facility] HealthcareStart: 07-27-2024 End: 99-19-8063AV Shoulder - right WO contrastMR shoulder right wo IV contrast Imaging Routine Internal derangement of right shoulder Expected: 07/27/2024 (Approximate), Expires: 07/27/2025[facility] Work Phone: Comment on above:Expected: 07/27/2024 (Approximate), Expires: 07/27/2025Start: 07-27-2024 End: 16-53-2701Wwdskvz encounter enuvuygkn65/03/2024 9:00 AM EDT Office Visit [facility] [address] [facility] [address] [place] [address] Isabel Leroy, DRY CLEANER APPRENTICE [address] [place] [address] Right shoulder pain, unspecified chronicityNOMS CI ORTHOPAEDICSComment on above:Right shoulder pain, unspecified chronicityStart: 10-29-4608Kinaicnul vaccinationInfluenza Vaccine (#1)N[facility]S HealthcareStart: 07-21-2024 End: 47-65-1802Xadezkq encounter uosanhmym59/28/2024 2:45 PM EDT Office Visit [facility] [address] [facility] [address] [place] [address] Blu Kothari MD [address] [facility] [address] [place] [address] ArrivedNOMS CI FMComment on above:ArrivedStart: 12-29-2023 End: 08-79-6758Imflelb encounter dedhhafyc38/05/2024 3:30 PM EST Office Visit [facility] FM [address] [facility] [address] [place] [address] Blu Kothari MD [address] [facility] [address] [place] [address] NOMS CI FMStart: 60-45-5739Qouorlymlorx Vaccine: 65+ Years (2 - PCV)Pneumococcal Vaccine: 65+ Years (2 - PCV)[facility]S HealthcareStart: 06-20-2022 Pneumococcal Vaccine: 65+ Years (2 of 2 - PCV)Pneumococcal Vaccine: 65+ Years (2 of 2 - PCV)[facility]S HealthcareStart: 28-28-7417Tyylideof for malignant neoplasm of breastMammogramNOMS HealthcareStart: 11-76-8616Vdvgkdsmo for malignant neoplasm of colonNOMS HealthcareCBC W Auto Differential panel - BloodCBC and differential Lab Routine Primary hypertension Lumbosacral spondylosis with radiculopathy Galina vated LDL cholesterol level Ordered: 08/12/2025[facility] Work Phone: Comment on above:Ordered: 08/12/2025 Immunizations Immunization DateImmunizationNotesCare BrquudieEfzmurkh81-98-2543Tsvnedcthsko Conjugate PCV 20Blu Kothari MD Work Phone: [facility] JosephLhmgghkeyf39-61-0548nivhydido, high dose seasonal, preservative-Claudia Kothari MD Work Phone: [facility] JosephBpwbrbnnii44-32-1885iqisatpcm virus vaccine, unspecified formulationBlu Kothari MD Work Phone: [facility] JosephJyqakjdkvg12-73-3190Dchntawpt, Seasonal, Quadrivalent, AdjuvantSarah Kothari MD Work Phone: [facility] JosephXkenhhawpl36-79-2895wjensmqec virus vaccine, unspecified formulationBlu Kothari MD Work Phone: [facility] JosephEdqepulmzj09-16-8499Vhdlxiszh, High-dose Seasonal, Quadrivalent, Preservative Claudia Kothari MD Work Phone: [facility] JosephBkaouzlafn58-16-9441tbgoer vaccine recombinant Blu Kothari MD Work Phone: [facility] JosephMvdiyqgvhu45-54-3152usebvy vaccine recombinant Blu Kothari MD Work Phone: [facility] JosephUlqhgdztns36-51-7514Sxpikaseo, High-dose Seasonal, Quadrivalent, Preservative Claudia Kothari MD Work Phone: [facility] JosephGsimvcboxh04-93-6325ymsonzgzmbns polysaccharide vaccine, 23 valentBlu Kothari MD Work Phone: [facility] JosephVvrqogeggh09-63-6918owiizdm toxoid, reduced diphtheria toxoid, and acellular pertussis vaccine, adsorbedBlu Kothari MD Work Phone: [facility] JosephFibwcbnxtr57-44-3047Veyzhuxpr, High-dose Seasonal, Quadrivalent, Preservative Claudia Kothari MD Work Phone: [facility] Payers DatePayer CategoryPayerPolicy [id number]-[id number] Health [id number] [id number] [id number] [id number] [id number] 2023 [id number] [id number] 2..840.1.466236.3.57[id number] 2..840.1.848010.3.57[id number] 2..840.1.029978.3.57[id number] 2..840.1.756247.3.57[id number] 2.16.840.1.931162.3.57[id number] 2.16.840.1.754958.3.57[id number] 2.16.840.1.056764.3.57[id number] 2.16.840.1.441671.3.57[id number] 2.16.840.1.070388.3.57[id number] 2.16.840.1.202332.3.57[id number] 2.16.840.1.577364.3.57[id number] 2.16.840.1.304040.3.579.[id number] 2.16.840.1.370859.3.57[id number] 2.16.840.1.188678.3.57[id number] 2.16.840.1.472641.3.57[id number] 2.16.840.1.847172.3.579.2.1259Private Health InsuranceUk [id number] 2.16.840.1.933712.3.579.2.531 Social History DateTypeDetailFacilityStart: 74-35-2240Lilnlpz smoking status NHISNever smoked tobaccoNOMS HealthcareStart: 07-03-2023 End: 48-56-5910Yafsizy use and exposureSmokeless tobacco non-userNOMS Healthcare Start: 11-14-2023 End: 83-47-8640Zgsydfk intakeEx-drinker (finding)[facility] HealthcareStart: 08-01-2023 End: 36-58-7205Yrlfrwc of Social functionNOMS HealthcareStart: 08-01-2023 End: 41-84-4726Unrafvq use panelNOMS HealthcareStart: 64-01-9970Mdqgqli Comment caffeine: 1-2 cups per dayNOMS HealthcareStart: 07-23-5937Yqs Assigned At Not on fileNOMS HealthcareStart: 94-13-1419Emmswbs smoking status NHISEx-smoker [facility] Work Phone: History of tobacco useCurrent smokerACADIA HEALTHCARE Healthcare History of tobacco useCigarette SmokerACADIA HEALTHCARE HealthcareStart: 08-20-2024 End: 65-56-9552Qmbzsagoe beverage intakeCurrent drinker of alcohol (finding)[facility] JosephTobacc smoking status NHISUnknown if ever smokedKettering Health Main Campus Work Phone: Start: 57-51-6023QozYiwslk (finding)[facility] Systemtart: 68-45-3351And Assigned At [facility] Functional Status TfkfSxxxabsqflMgmdntTmaeuvzb73-91-5854Mrzthbk Health Questionnaire 2 item (PHQ- 2) [Reported][facility] JosephSblpinzyvm43-30-2945Gprnfox Health Questionnaire 2 item (PHQ- 2) [Reported][facility] JosephKkmgpfofwx26-40-7047Xvuxqwr Health Questionnaire 2 item (PHQ- 2) [Reported][facility] Clinical Notes 12-29-2023 to 08-12-2025 Note Date & AlyySrxkLxjrvwjw24-04-0631 History of Present illness Narrative* Blu Kothari MD - 08/12/2025 9:00 AM EDT Images from the original note were not included. HPI Med Refill Additional comments: Mobic,crestor,amlodipine-- mail order Last edited by Valery Guardado LPN on 08/12/2025 9:00 AM. Subjective Patient ID: Miguel Gonzalez is a 70 y.o. female who presents for Hypertension and Med Refill (Mobic,crestor,amlodipine-- mail order). Hypertension Patient is here for follow-up of elevated blood pressure. She is exercising \Blood pressure is wellcontrolled at home. Cardiac symptoms: none. Patient denies chest pain, claudication, lower extremity edema, near-syncope, orthopnea, palpitations, paroxysmal nocturnal dyspnea, syncope, and tachypnea. Cardiovascular risk factors: advanced age (older than 55 for men, 65 for women) and hypertension. Hypertension Pertinent negatives include no chest pain, palpitations or shortness of breath. Med Refill Pertinent negatives include no chest pain. Back Pain Pertinent negatives include no chest pain. Over the past 2 weeks, how often have you been bothered by any of the following problems? Little interest or pleasure in doing things: Not at all Feeling down, depressed, or hopeless: Not at all Patient Health Questionnaire-2 Score: 0 Current Outpatient Medications on File Prior to Visit Medication Sig Dispense Refill alendronate (Fosamax) 70 MG tablet TAKE 1 TABLET EVERY 7 DAYS IN THE MORNING WITH A FULL GLASS OF WATER, ON AN EMPTY STOMACH, AND DO NOT TAKE ANYTHING ELSE OR LIE DOWN FOR THE NEXT 30 MINUTES 4 tablet 11 aspirin 81 MG EC tablet Take 81 mg by mouth Daily CALCIUM-VITAMIN D PO Take by mouth Daily Multiple Vitamin (Multivitamin Adult) tablet Daily omeprazole (PriLOSEC) [address] capsule TAKE 1 CAPSULE BY MOUTH EVERY DAY IN THE MORNING before a meal 100 capsule 3 traMADol (Ultram) 50 MG tablet Take 1 tablet (50 mg) by mouth every 6 (six) hours if needed for severe pain 60 tablet 1 [DISCONTINUED] amLODIPine (Norvasc) 2.5 MG tablet TAKE 1 TABLET BY MOUTH EVERY DAY 30 tablet 13 [DISCONTINUED] cyanocobalamin (Vitamin B-12) 1000 MCG tablet Take 1,000 mcg by mouth Daily [DISCONTINUED] meloxicam (Mobic) 15 MG tablet TAKE 1 TABLET BY MOUTH IN THE MORNING WITH FOOD 30 tablet 8 [DISCONTINUED] rosuvastatin (Crestor) 10 MG tablet TAKE 1 TABLET BY MOUTH EVERY DAY 30 tablet 13 [DISCONTINUED] Rosebush-3 Fatty Acids (Fish Oil) 1000 MG capsule delayed-release Take by mouth Daily [DISCONTINUED] zinc gluconate 50 MG tablet Take 25 [...] cancer Father Past Medical History: Diagnosis Date 'Dilwq-ooe-vspwa' infant with signs of malnutrition (HHS-HCC) Arthritis Cervical spondylolysis GERD (gastroesophageal reflux disease) Hypertension Shingles Past Surgical History: Procedure Laterality Date APPENDECTOMY EGD 2013 HYSTERECTOMY IR NERVE BLOCK PROCEDURE Bilateral 09/01/2023 L4-S1 RADIOFREQUENCY ABLATION Bilateral 11/10/2023 L4-S1 SHOULDER ARTHROSCOPY W/ ROTATOR CUFF REPAIR Right 10/20/2024 W/ SAD ; DR WAITE TRIGGER FINGER RELEASE Right 2019 RF Visit Vitals BP 136/80 Pulse 65 Ht 4' 9 Wt 123 lb SpO2 97% BMI 26.62 kg/m Smoking Status Former BSA [...] this visit: Lumbosacral spondylosis with radiculopathy - CBC and differential - Failed steroid injections, will get ablation soon. Primary hypertension - amLODIPine (Norvasc) 2.5 MG tablet; Take 1 tablet (2.5 mg) by mouth Daily - rosuvastatin (Crestor) 10 MG tablet; Take 1 tablet (10 mg) by mouth Daily - CBC and differential - Comprehensive metabolic panel; Future - Lipid panel; Future - TSH W/REFLEX TO FT4; Future Cervical spondylosis without myelopathy - meloxicam (Mobic) 15 MG tablet; Take 1 tablet (15 mg) by mouth Daily Elevated LDL cholesterol level - CBC and differential - Comprehensive metabolic panel; Future - Lipid panel; Future - TSH W/REFLEX TO FT4; Future Follow up in about 3 months (around 11/11/2025) for Test/Lab Review. documented in this encounterMosaic Life Care at St. JosephJgkhvaafxd15-24-9388 History of Present illness Narrative* Blu Kothari MD - 03/25/2025 9:00 AM EDT Images from the original note were not [...] 8 Multiple Vitamin (Multivitamin Adult) tablet Daily Rosebush-3 Fatty Acids (Fish Oil) 1000 MG capsule [...] cancer Father Past Medical History: Diagnosis Date 'Xigtd-iqu-rggzx' with signs of malnutrition Arthritis Cervical spondylolysis [...] Greater than 25 minutes was spent in ydph-mf-caha consultation and coordination of care. Follow up in about 6 months (around 09/25/2025) for Routine F/U. documented in this encounterMosaic Life Care at St. [id number] History of Present illness Narrative* Blu Kothari MD - 03/07/2025 9:15 AM EDT Images from the original note were not [...] Initial inciting event: none. Alleviating factors identifiable bythe patient are medication Tramadol. Pt completed CT [...] 8 Multiple Vitamin (Multivitamin Adult) tablet Daily Rosebush-3 Fatty Acids (Fish Oil) 1000 MG capsule [...] cancer Father Past Medical History: Diagnosis Date 'Ucbtb-yzk-rlttc' infant with signs of malnutrition Arthritis Cervical [...] 03/28/2025) for Test/Lab Review. documented in this encounterMosaic Life Care at St. JosephGiymuofcby45-20-2478 History of Present illness Narrative* Blu Kothari MD - 02/18/2025 9:00 AM EDT Images from the original note were not included. HPI Follow-up Additional comments: Pain med Last edited by Valery Guardado LPN on 02/18/2025 9:08 AM. Subjective Patient ID: Miguel Gonzalez is a 69 y.o. female who presents for Follow-up (Pain med), Hypertension, and Back Pain. REFILL- TRAMADOL Hypertension Patient is here for follow-up of elevated blood pressure. She is exercising \Blood pressure is wellcontrolled at home. Cardiac symptoms: none. Patient denies [...] Initial inciting event: none. Alleviating factors identifiable bythe patient are medication Tramadol. Pt states she [...] 8 Multiple Vitamin (Multivitamin Adult) tablet Daily. Rosebush-3 Fatty Acids (Fish Oil) 1000 MG capsule [...] mouth every 6 (six) hours if needed forsevere pain No current facility-administered medications on file [...] cancer Father Past Medical History: Diagnosis Date 'Siibl-vhw-hatrm' with signs of malnutrition Arthritis Cervical spondylolysis [...] 03/04/2025) for Test/Lab Review. documented in this encounterMosaic Life Care at St. JosephEhwiajpkza36-34-6571 History of Present illness Narrative* MARIYA David - 01/03/2025 10:45 AM EST Images from the original note were not [...] elbow wrist and fingers in all anatomic planeswith 5 out of 5 strength on the operative upper extremity. Compartments were soft to operative upper extremity. There was no evidence of infection or ascending lymphangitis to operative extremity. Procedures Orders Placed This Encounter Procedures Ambulatory referral to Physical Therapy Standing Status: Future Standing Expiration Date: 07/03/2025 Referral Priority: Routine Referral Type: Consultation Referral Reason: Specialty Services Required Referral Location: [facility] Scheduling Requested Specialty: Physical Therapy Number [...] own for optimal outcome. She will avoid anywhipping motions for an additional year, and caution [...] for requiring urgent evaluation. documented in this encounterMosaic Life Care at St. JosephAmyowobkve15-53-9099 History of Present illness Narrative* MARIYA David - 12/02/2024 2:30 PM EST Images from the original note were not included. HISTORY OF PRESENT ILLNESS: POST OP PT Miguel Gonzalez is an 69 y.o. @ female. (EST PT) S/P (R) SHOULDER SCOPE 10/20/24 (6WKS 1DAY) S/P [facility] PHYSICAL THERAPY ORDER (HAS NOT STARTED) HAS NOT STARTED PHYSICAL THERAPY YET ; STATES SHE DOES HAVE THERAPY SCHEDULED @ [facility] 12/06/24 IF [address] IS [address] TO DRIVE BY THEN OTHERWISE SHE WILL SCHEDULE WITH [facility]. PRESENTS WEARING SLING TODAY, INCORRECTLY. NOTES VERY [...] elbow wrist and fingers in all anatomic planeswith 5 out of 5 strength on the operative upper extremity. Compartments were soft to operative upper extremity. There was no evidence of infection or ascending lymphangitis to operative extremity. Procedures Orders Placed This Encounter Procedures Ambulatory referral to Physical Therapy Standing Status: Future Standing Expiration Date: 06/01/2025 Referral Priority: Routine Referral Type: Consultation Referral Reason: Specialty Services Required Referral Location: [facility] Scheduling Requested Specialty: Physical Therapy Number of Visits Requested: 1 ASSESSMENT: ICD-10-CM 1. S/P arthroscopy of right shoulder Z98.890 Ambulatory referral to Physical Therapy S/p rotator cuff repair and SAD Assessment & Plan 1. Post-operative status following right shoulder arthroscopy, rotator cuff repair, and subacromialdecompression. She has expressed a preference for outpatient therapy at [place]. Given her satisfactory passive and active range [...] for requiring urgent evaluation. documented in this encounterMosaic Life Care at St. [id number] History of Present illness Narrative* MARIYA David - 11/04/2024 1:30 PM EST HISTORY OF PRESENT ILLNESS: POST OP PT [...] PERCOCET PRN ; NO LONGER USING ICE. SUTURESINTACT, REMOVED. NO S/S OF INFECTION. REVIEW OF [...] elbow wrist and fingers in all anatomic planeswith 5 out of 5 strength on the [...] and can not drive with her arm berto sling to outpatient therapy. PROCEDURE The patient [...] for requiring urgent evaluation. documented in this encounterMosaic Life Care at St. [id number] Instructions* Patient Instructions* MARIYA David - 11/04/2024 1:30 PM EST [...] call Therapy facility to schedule as soon aspossible documented in this [facility]11-26-2024 Telephone encounter Note* Telephone Encounter - Isabel Leroy NP - 10/19/2024 3:38 PM EST Post op pain rx. PDMP reviewed [facility] [id number] Miscellaneous Notes* Telephone Encounter - Isabel Leroy NP - 10/19/2024 3:38 PM EST Post op pain rx. PDMP reviewed documented in this [facility]10-31-2024 History of Present illness Narrative* MARIYA David - 09/23/2024 8:30 AM EDT Images from the original note were not included. GENERAL HISTORY AND PHYSICAL: NAME: Miguel Gonzalez : 1955 HISTORY OF PRESENT ILLNESS: Miguel Gonzalez is an 69 y.o. @ female. Here for surgery instructions - (R) SHOULDER SCOPE 10/20/2024 @CALLIE PAST MEDICAL HISTORY: Past Medical History: Diagnosis Date 'Pqbfd-ihf-htiif' with signs of malnutrition Arthritis Cervical spondylolysis GERD (gastroesophageal reflux disease) Hypertension ([facility]) Shingles PAST SURGICAL HISTORY: Past Surgical History: [...] morning with a full glass of water, anmol empty stomach, and do not take anything [...] food Multiple Vitamin (Multivitamin Adult) tablet Daily Rosebush-3 Fatty Acids (Fish Oil) 1000 MG capsule [...] surgery received. All questions answered and proposed surgeryscheduled. (R) SHOULDER SCOPE 10/20 @CALLIE SX INSTRUCTIONS GIVEN TODAY 09/23 @8:30AM - LOWELL ULTRASLING GIVEN TODAY ARTHREX NOTIFIED Patient presents today for fitting of right L3670 Shoulder Orthosis, Acromioclavicular, Prefabricated, Off the Shelf today. Brace is used to immobilize and increase stability of the shoulder joint toallow for full and complete healing. Fitting and adjustments were done under physician order and supervision. Patient was placed in the brace and all straps were adjusted for proper fit. Brace was dispensed to the patient and [employer] Patient Agreement was completed and signed. Warranty informationwas given and explained to the patient with good understanding. Proper care and fitting was also explained to the patient with good understanding. Follow up for 11/04 @1:30pm w/aline in [place]. documented in this encounterMosaic Life Care at St. [id number] History of Present illness Narrative* Jr. Son Waite, - 09/15/2024 8:15 AM EDT Images from the original note were not included. HISTORY OF PRESENT ILLNESS: EST PT Miguel Gonzalez is an 69 y.o. @ female. (EST PT) RECHECK (R) SHOULDER ; S/P HEP XRAYS, 07/27/24 IN [facility] MRI 08/11/24 IN [facility] NO MDP / PREDNISONE NO CORTISONE [...] morning with a full glass of water, anmol empty stomach, and do not take anything [...] food Multiple Vitamin (Multivitamin Adult) tablet Daily Rosebush-3 Fatty Acids (Fish Oil) 1000 MG capsule [...] shoulder today we have discussed both surgical andnonsurgical intervention, with the risks and benefits of both. Patient is requesting a (R) shoulderscope as the pain is affecting her ADL's [...] intervention. Son Waite D.O. documented in this encounterMosaic Life Care at St. [id number] Telephone encounter Note* Telephone Encounter - Tami Tucker - 08/23/2024 9:41 AM EDT Spoke with patient she will see 09/15 for her next scheduled appt. [facility] [id number] Miscellaneous Notes* Telephone Encounter - Tami Tucker - 08/23/2024 9:41 AM EDT Spoke with patient she will see 09/15 for her next scheduled appt. * Telephone Encounter - Tami Tucker - 08/23/2024 9:00 AM EDT Patient left requesting to go ahead and schedule her sx. Please advise [phone]. documented in this encounterMosaic Life Care at St. [id number] Telephone encounter Note* Telephone Encounter - Tami Tucker - 08/23/2024 9:00 AM EDT Patient left requesting to go ahead and schedule her sx. Please advise [phone]. [facility] JosephKbnznznbzo07-95-2616 History of Present illness Narrative* MARIYA Morrison - 08/20/2024 8:30 AM EDT Images from the original note were not [...] 3 Multiple Vitamin (Multivitamin Adult) tablet Daily. Rosebush-3 Fatty Acids (Fish Oil) 1000 MG capsule [...] cancer Father Past Medical History: Diagnosis Date 'Sgpzh-zde-pfpfb' infant with signs of malnutrition Arthritis Cervical [...] Do you have a medical power of corporate associate attorney?: Yes Objective : BP 138/86 Pulse [...] All needed testing was ordered. Will continue withyearly Medicare Wellness exams. - CBC and differential [...] controlled. Continue with current medications and I willcontinue to monitor. Goal BP remains less than [...] shoulder The patient is seeing a medical imaging tech for this condition, treatment is deferred to that specialist. Correspondence from that specialist and any available testing were reviewed during today's visit. Follow up in about 3 months (around 11/19/2024) for Medication Follow Up. Electronically signed by Alexia Reid PA-C on August 20, 2024 documented in this encounterMosaic Life Care at St. [id number] History of Present illness Narrative* Jr. Son Waite, - 08/13/2024 8:30 AM EDT HISTORY OF PRESENT ILLNESS: EST PT Miguel Gonzalez is an 69 y.o. @ female. (EST PT ; LAST APPT W/ ISABEL) RECHECK (R) SHOULDER ; HERE FOR MRI RESULTS 08/11/24 IN [facility] XRAYS, 07/27/24 IN [facility] MRI 08/11/24 IN [facility] NO MDP / PREDNISONE NO CORTISONE INJ NO PHYSICAL THERAPY PREVIOUS PAIN MGMT ; TBH (L-SPINE) CONTINUES TO HAVE INTERMITTENT DISCOMFORT ; WORSE WITH ACTIVITY / MOVEMENT - PAIN IS DIFFUSE ; SOMERADIATING PAIN DOWN HER ARM, WITH N/T IN [...] morning with a full glass of water, anmol empty stomach, and do not take anything [...] food Multiple Vitamin (Multivitamin Adult) tablet Daily Rosebush-3 Fatty Acids (Fish Oil) 1000 MG capsule [...] and nonsurgical intervention, with the risks and be nefits of both. Patient is requesting to hold off on the thought of sx at this time as she states that she is going to [place] in 2 weeks and then her is scheduled to consult at [facility] 09/10 ; patient would like to [...] scope. Son Waite D.O. documented in this encounterMosaic Life Care at St. [id number] History of Present illness Narrative* Isabel Leroy NP - 07/27/2024 9:00 AM EDT Images from the original note were not [...] MEDICAL HISTORY: Past Medical History: Diagnosis Date 'Covdm-ozm-eymmh' infant with signs of malnutrition Arthritis Cervical [...] morning with a full glass of water, anmol empty stomach, and do not take anything [...] food Multiple Vitamin (Multivitamin Adult) tablet Daily Rosebush-3 Fatty Acids (Fish Oil) 1000 MG capsule [...] showed humeral head to be well centered inthe glenoid fossa. There was no evidence of [...] symptoms develop for requiring urgent evaluation. Isabel Leroy, ALEE-CRIB ATTENDANT documented in this encounterMosaic Life Care at St. [id number] History of Present illness Narrative* Blu Kothari MD - 07/21/2024 2:45 PM EDT Images from the original note were not [...] 3 Multiple Vitamin (Multivitamin Adult) tablet Daily. Rosebush-3 Fatty Acids (Fish Oil) 1000 MG capsule [...] mg) by mouth every 6 (six) hours ifneeded for severe pain 20 tablet 0 [DISCONTINUED] tiZANidine (Zanaflex) 2 MG tablet TAKE 1 TO 2 TABLETS BY MOUTH TWICE A DAY NEEDEDFOR SPASM No current facility-administered medications on file [...] cancer Father Past Medical History: Diagnosis Date 'Vyllm-syn-cdojj' with signs of malnutrition Arthritis Cervical spondylolysis [...] for this patient. Elevated LDL cholesterol level ([facility]) Shoulder capsulitis, right - Ambulatory referral to Orthopaedic Surgery; Future Follow up for As Previously Scheduled. documented in this encounterMosaic Life Care at St. [id number] Telephone encounter Note* Telephone Encounter - MARIYA Morrison - 12/29/2023 8:01 AM EST sent [facility] [id number] Miscellaneous Notes* Telephone Encounter - MARIYA Morrison - 12/29/2023 8:01 AM EST sent [facility] Diagnosis Cervical spondylosis without myelopathy- Primary documented in this encounter [facility] Healthcare[facility]* Diagnosis Internal derangement of right shoulder- Primary documented in this encounter [facility]Evaluation [facility]* Diagnosis Pre-op examination- Primary documented in this encounter [facility]* Diagnosis Internal derangement of right shoulder- Primary documented in this encounter [facility]* Diagnosis S/P arthroscopy of right shoulder- Primary documented in this encounter [facility]* Diagnosis Cervical spondylosis without myelopathy- Primary Age-related osteoporosis without current pathological fracture ([facility]) Primary hypertension ([facility]) Unspecified essential hypertension Gastroesophageal reflux disease without esophagitis Esophageal reflux Lumbosacral spondylosis with radiculopathy Elevated LDL cholesterol level ([facility]) Shoulder capsulitis, right documented in this encounter [facility]* Diagnosis Internal derangement of right shoulder- Primary Right shoulder pain, unspecified chronicity documented in this encounter [facility] HealthcareEvaluation note* Diagnosis Internal derangement of right shoulder- Primary documented in this encounter [facility] HealthcareEvaluation note* Diagnosis Medicare annual wellness visit, subsequent- Primary ACP (advance care planning) Other specified counseling Primary insomnia Persistent disorder of initiating or maintaining sleep Lumbosacral spondylosis with radiculopathy Post herpetic neuralgia ([facility]) Herpes zoster with other nervous system complications Primary hypertension ([facility]) Unspecified essential hypertension Gastroesophageal reflux disease without esophagitis Esophageal reflux Age-related osteoporosis without current pathological fracture ([facility]) Cervical spondylosis without myelopathy Lumbar paraspinal muscle spasm Other symptoms referable to back Overweight (BMI 25.0-29.9) Overweight Elevated LDL cholesterol level ([facility]) History of hysterectomy Acquired absence of both cervix and uterus Hypercalcemia Other problems related to lifestyle Internal derangement of right shoulder documented in this encounter [facility]* Diagnosis S/P arthroscopy of right shoulder- Primary documented in this encounter [facility] HealthcareEvaluation note* Diagnosis S/P arthroscopy of right shoulder- Primary documented in this encounter [facility]Evaluation note* Diagnosis Lumbosacral spondylosis with radiculopathy- Primary Right flank pain, chronic documented in this encounter [facility] note* Diagnosis Lumbosacral spondylosis with radiculopathy- Primary Right flank pain, chronic Other idiopathic scoliosis, thoracolumbar region Lumbar disc narrowing Degeneration of lumbar or lumbosacral intervertebral disc documented in this encounter [facility] HealthcareEvaluation noteNo assessment information availableKettering Health Main Campus Work Phone: Evaluation note* Diagnosis Lumbosacral spondylosis with radiculopathy- Primary documented in this encounter [facility]* Diagnosis Lumbosacral spondylosis with radiculopathy- Primary Primary hypertension Unspecified essential hypertension Cervical spondylosis without myelopathy Elevated LDL cholesterol level documented in this encounter [facility] HealthcareReason for referral (narrative)* Consultation (Routine) - Pending ReviewSpecialtyDiagnoses / ProceduresReferred By ContactReferred To Contact Orthopaedic Surgery Diagnoses Shoulder capsulitis, right Blu Kothari MD [address] [facility] [address] [place] [address] April Mercedes PA [address] [facility] [address] [place] [address] Referral IDStatusReasonStrehoboth DateExpiration DateVisits RequestedVisits [id number] Review Specialty Services Required / [facility] Summary Purpose Family History No Family History Records FoundNo Family History Records FoundNo Family History Records FoundNo Family History Records FoundNo Family History Records FoundNo Family History Records Found Advance Directives No Advanced Directives Records Found Advance Directive Response Recorded Date/ Time Advance Directives No March 17 3:48pm Reason for Referral SpecialtyDiagnoses / ProceduresReferred By ContactReferred To ContactRadiology Diagnoses Internal derangement of right shoulder Procedures MR shoulder right wo IV contrast Isabel Leroy, DRY CLEANER APPRENTICE [address] [place] [address] [facility] [address] [place] [address] Referral IDStatusReasonBernice DateExpiration DateVisits RequestedVisits [id number]/ Chief Complaint and Reason for Visit Chief Complaint Admit Date M47.27 M41.25 M51.369 March 18, 2025 1 0:57am Additional Source Comments INFORMATION SOURCE (unrecogn ized section and content) DATE CREATED AUTHOR 12/29/2020 [facility] DATE CREATED AUTHOR AUTHOR'S ORGANIZ ATION 07/09/2021 [facility] DATE CREATED AUTHOR AUTHOR'S ORGANIZ ATION 04/09/2025 [facility] DATE CREATED AUTHOR AUTHOR'S ORGANIZ ATION 08/10/2025 [facility] DATE CREATED AUTHOR AUTHOR'S ORGANIZ ATION 08/13/2025 [facility] DATE CREATED AUTHOR AUTHOR'S ORGANIZ ATION 08/14/2025 [facility] Reason for Visit (unrecogniz ed section and content) ReasonCommentsMed RefillReasonCommentsPainReasonCommentsPainPost-opReason CommentsFollow-upPain medHypertensionShoulder PainMed RefillTramadol--[facility] ReasonCommentsPainReasonOnset PcbgDskhalrrRusqhkq76/30/2024ReasonCommentsPost-op ReasonCommentsFollow-upPain medHypertensionBack PainReasonCommentsFlank Pain ResultsCt scanReasonCommentsHypertensionMed RefillMobic,crestor,amlodipine-- mail order Care Teams (unrecognized sec tion and content) Team MemberRelationshipSpecialtyStart DateEnd Date Blu Kothari MD [address] [facility] [address] [place] [address] PCP - GeneralInternal Medicine04/01/23Team MemberRelationshipSpecialtyStart Date End Date Blu Kothari MD [address] [facility] [address] [place] [address] PCP - GeneralInternal Medicine04/01/23am MemberRelationshipSpecialtyStart Date End Date Blu Kothari MD [address] [facility] [address] [place] [address] PCP - GeneralInternal Medicine04/01/23Team MemberRelationshipSpecialtyStart Date End Date Blu Kothari MD [address] [facility] [address] [place] [address] PCP - GeneralInternal Medicine04/01/23Team MemberRelationshipSpecialtyStart Date End Date Blu Kothari MD [address] [place] [address] PCP - GeneralInternal Medicine04/01/23Team MemberRelationshipSpecialtyStart Date End Date Blu Kothari MD [address] [place] [address] PCP - GeneralInternal Medicine04/01/23am MemberRelationshipSpecialtyStart Date End Date Blu Kothari MD [address] [place] [address] PCP - GeneralInternal Medicine04/01/23am MemberRelationshipSpecialtyStart Date End Date Blu Kothari MD [address] [place] [address] PCP - GeneralInternal Medicine04/01/23am MemberRelationshipSpecialtyStart Date End Date Blu Kothari MD [address] [place] [address] PCP - GeneralInternal Medicine04/01/23am MemberRelationshipSpecialtyStart Date End Date Blu Kothari MD [address] [place] [address] PCP - GeneralInternal Medicine04/01/23am MemberRelationshipSpecialtyStart Date End Date Blu Kothari MD [address] [place] [address] [facility] - [facility]04/01/23Te MemberRelationshipSpecialtyStart Date End Date Blu Kothari MD [address] [place] [address] PCP - [facility]04/01/23Te MemberRelationshipSpecialtyStart Date End Date Blu Kothari MD [address] [place] [address] PCP - [facility]04/01/23 Blu Kothari MD [address] [place] [address] PCP - [facility]12/31/24Te MemberRelationshipSpecialtyStart DateEnd Date Blu Kothari MD [address] [place] [address] PCP - [facility]04/01/23 Blu Kothari MD [address] [place] [address] PCP - [facility]12/31/24Te MemberRelationshipSpecialtyStart DateEnd Date Blu Kothari MD [address] [place] [address] [facility] Blu Kothari MD [address] [place] [address] PCP - [facility]2Team MemberRelationshipSpecialtyStart DateEnd Date Blu Kothari MD [address] [place] [address] PCP - [facility]04/01/23 Blu Kothari MD [address] [place] [address] PCP - [facility]12/31/24Team MemberRelationshipSpecialtyStart DateEnd Date Blu Kothari MD [address] [place] [address] PCP - [facility]04/01/23 Blu Kothari MD [address] [place] [address] PCP - [facility]12/31/24Team MemberRelationshipSpecialtyStart DateEnd Date Blu Kothari MD [address] [place] [address] PCP - [facility]04/01/23 Blu Kothari MD [address] [place] [address] PCP - [facility]12/31/24 Team Status: Active Member Role Status Dates Blu Kothari II MD Primary Care Provider Active Team Status: Inactive Member Role Status Dates Blu Kothari II MD Primary Care Provid er, Attending Provider Active Start: March 18, 2025 End: March 18, 2025Team MemberRelationshipSpecialtyStart DateEnd Date Blu Kothari MD [address] [place] [address] PCP - [facility]04/01/23 Blu Kothari MD [address] [facility] [address] [place] [address] PCP - [facility]12/31/24 Goals (unrecognized section and content) Goals may [...] BE BASED ON THE PRIMARY CLINICAL RECORDS. [employer] [facility]. provides no warranty or guarantee of the accuracy or completeness of information in this document.
[2025-09-19 10:48] VITALS: BP 182/91; PULSE 62; TEMP 36.2; O2SAT 98
[2025-09-19 11:32] VITALS: BP 190/102; PULSE 72; O2SAT 95
[2025-09-19 11:36] VITALS: BP 186/101; PULSE 75; O2SAT 96
[2025-09-19] MEDS: LIDOCAINE HCL 2% 400 MG/20 ML MDV 12 ML INJ (11:44)
[2025-09-19] MEDS: METHYLPREDNISOLONE ACETATE 40 MG/ML VIAL 80 MG INJ (11:44)
[2025-09-19] MEDS: BUPIVACAINE HCL 0.25% PF 25 MG/10 ML VIAL 4 ML INJ (11:44)
--- NOTE | 2025-09-19 11:47 | P.ON_ITS ---
Date of procedure: 09/19/25 Pre-op diagnosis: Pain due to lumbar spondylosis without myelopathy Post-op diagnosis: same as pre-op Procedure: Procedure: Bilateral L2-3, L3-4 radiofrequency ablation Medications: Bupivacaine 0.25% 4cc, depomedrol 80mg, lidocaine 2% 6cc The patient was seen and examined in the preoperative holding area.? The site was marked.? Written informed consent was obtained and placed on the chart.? The patient was brought to the medical procedure unit and placed in the prone position.? A timeout was completed verifying correct patient, procedure, positioning, and special requirements.? The skin overlying the target points, the designated medial branch, were prepped and draped in the usual sterile fashion.? The target point was achieved with a 20-gauge 15 cm with a 10 mm curved active tip radiofrequency cannula under direct fluoroscopic visualizatio n.? The needle was inserted at level L2 on the right side. Needle tip position was confirmed with lateral fluoroscopic position.? Motor stimulation was carried out at 2 Hz up to 5 volts with the absence of extremity activity.? This was repeated at level L3, 4 on right side.?? Sensory stimulation was carried out.? Concordant pain was realized at the above- mentioned sites.? Then radiofrequency lesioning was carried out times 90 seconds at 80 degrees times 2 lesions at each level.? The radiofrequency probe was removed prior to cannula removal.? The above-mentioned injectate was placed in 1 mL increments.? The needle was removed. The same procedure, with the same steps, was then completed on the left side at the same levels. Insertion sites were covered.? The patient was taken to the postoperative recovery area and monitored for an appropriate length of time before being found suitable for discharge in the company of a responsible adult. Anesthesia: Local Surgeon: Bouchra Angel Pathology: none sent Condition: stable Disposition: no change
== END 2025-09-19 11:50 | disposition home or self-care (01) ==
PROVIDERS: PCP Internal Medicine; Visit Provider Anesthesiology
DX: M47.816 Spondylosis without myelopathy or radiculopathy, lumbar region (principal); M54.50 Low back pain, unspecified
CPT/HCPCS: 64635; 64636; J0665; J1010

== ENCOUNTER 2025-11-02 08:14 | Outpatient (OUT) | payer OTHER, MEDICARE, SELFPAY ==
--- OUTSIDE RECORDS SUMMARY | 2025-10-24 06:27 | XMS_ITS | Continuity of Care Document ---
Author Organization [facility] Address [address] [place] [address] Phone Care Team Providers Care Yeast Pumper Name Role Phone Blu Kothari II Primary Care Provider [phone] Elham Burden APRN Attending Provider Care Teams Patient Care Team Team Status: Active Member Role/Relationship Status Dates Blu Kothari II MD Primary Care Provider Active Patient Care Team Team Status: Inactive Member Role/Relationship Status Dates Blu Kothari II MD Primary Care Provider Active Start: October 24, 2025 End: October 24, 2025Patricjewel Burden APRN MEDICARE CONTACT SPECIALIST-CAttending Provider ActiveStart: October 24, 2025 End: October 24, 2025 Chief Complaint and Reason for Visit Chief Complaint Admit Date Cough, congestion October 24, 2025 1 0:25am Reason for Visit Admit Date Sinusitis, acute October 24, 2025 1 0:25am Sore throat October 24, 2025 1 0:25am Allergies, Adverse Reactions, Alerts Allergen Type Severity Reaction Last Updated Verified Status No Known Allergies Allergy Unknown October 24, 2025 10:35amYesActive Social History Smoking Status Unknown if ever smoked Observation Status Observation Response Date of Response Legal Sex Female (finding) [facility] 1954 Problems Active Problems Problem Diagnosis/Recorded Date Onset Date Stat Sinusitis, acute October 24, 2025 10:55am Unknown Active Medications Medication Status Dose Units Route Directions Qty Days Refills S tart Date Stop Date End Date Reason(s) Instructions Adherence Meloxicam 15 mg tablet Active MGPODecember 2024 12:00amComplies with drug therapyAlendronate 70 mg tablet ActiveMGPODecember 2024 12:00amComplies with drug therapyAmlodipine 2.5 mg tabletActiveMGPODecember 2024 12:00amComplies with drug therapyOmeprazole 40 mg capsule,delayed release(DR/EC)ActiveMGPODecember 2024 12:00amComplies with drug therapyRosuvastatin 10 mg tabletActiveMGPODecember 2024 12:00am Complies with drug therapyAspirin 81 mg oywczqGoxwrv95ZIIPNwofzAycxotez 2024 12:00amComplies with drug therapyAmoxicillin-Pot Clavulanate 875-125 mg vtrpvoKnttbj4QFKNHIltfr 12 svufz356Xfqmtxmg 1st, 2025 12:00amComplies with drug therapy Procedures Procedure Date Performed Status Quick Strep (POC) October 24, 2025 completed Relevant Diagnostic Tests and/or Laboratory Data Microbiology Results Procedure Source Result Collection Date/Time Result Date/Time Result Comment Performing Site Quick Strep (POC) Throat October 24, 2025 10:55amDecemb2024 11:00am Vital Signs Vital Reading Result Reference Range Collection Date/Time Height 56 [in_i] October 24, 2025 10:08gwJhoubu64.01 kgOctober 24, 2025 10:41amBody Obhvfedtzgs82.4 [degF]97.6-99.0October 24, 2025 10:41amHeart Rate68 /fdb40-776 October 24, 2025 10:41amRespiratory rate19 /epq26-56HwkfguhbOctober 24, 2025 10:41am Oxygen saturation by Pulse juubfhwy25 %95-100October 24, 2025 10:41amBP Kwpevgty702 mm[Hg]100-140October 24, 2025 10:41amBP Lzuywuazg06 mm[Hg]60-100 October 24, 2025 10:41amBMI (Body Mass Index)27.6 kg/v2YowhslkcOctober 24, 2025 10:41am Advance Directives Advance Directive Response Recorded Date/ Time Advance Directives No March 17, 025 2:48pm Insurance Providers Guarantor Patricia Gonzalez Address [address] [place] [address] [place] [address]Gnsclpw Info.Home Phone: Coverage Status Update:2025 Payer Group Member ID Coverage Type Subscriber Relationship to Subscriber Effective Date Expiration Date Medicare [id number] Yates Id: [id number] [address] [place] [address] Home Phone: [facility] Id: [id number] Yates Id: [id number] [address] [place] [address] Home Phone: [employer] Id: [id number] J Yates Id: [id number] [address] [place] [address] Home Phone: Email: DECLINED 20 Encounters Encounter Location(s) Arrival/Admit Date Discharge/Departure Date Discharge/Departure Disposition Provider(s) Departed Physician/ Provider Office Visit -[facility] [place] October 24, 2025 10:25am October 24, 2025 11:02am Discharged to home care or self care (routine discharge) Elham Burden APRN Recent Diagnosis Onset Date Admit Date Sinusitis, acute Unknown October 24 10:25am Sore throat Unknown October 24 10:25am Assessments Diagnosis Onset Date Resolution Status Admit Date Sinusitis, acute acuteDe2024 10:25amSore throatnoneactiveDece2024 10:25am Plan of Treatment Author Elham Burden [facility] 2024 10:55amTake antibiotics as prescribed, do not stop early. May take tylenol/motrin OTC prn for pain/fever. Increase oral intake of fluids to thin secretions. Saline nasal spray. May use throat lozenges and warm salt water gargles to alleviate sore throat. Humidified air. If symptoms do not improve in 48 hrs after starting antibiotics instructed patient to come to office for further evaluation. Future Tests Future scheduled test information is unavailable Pending Tests Pending diagnostic test information is unavailable Future Visits Future appointment information is unavailable Future Procedures Future procedure information is unavailable Future Medications Future medication information is unavailable Patient Instructions Patient instructions are unavailable
--- NOTE | 2025-11-02 08:17 | PM.CN ---
Consult Note: HPI Data of Consult Patient: known to practice within the last 3 years Requesting Physician: Tierney Kohli NP Primary Care Provider: CLAY TAVERAS Consult Narrative Reason for consult: low back pain Narrative: Patricia Gonzalez a 70 year old female with chronic low back pain > 2 years unresponsive to > 6 weeks of HEP/PT, heat, ice, tylenol, NSAIDs presents for evaluation. PT recently underwent bilateral L2-3 L3-4 facet RFA for lumbar facet mediated pain with significant ongoing relief, noting >50% improvement ongoing. Pain 0/10 and at times with activity or flare ups notes pain up to 6/10. utilizing meloxicam and tramadol prn with benefit, denies side effects. ETHAN now 4% cc:: CC: Tierney Kohli NP Review of Systems ROS Musculoskeletal Denies: back pain PFSH PFSH Medical History Low back pain ?M54.50 - Low back pain, unspecified (ICD-10) Osteoarthritis ?M19.90 - Unspecified osteoarthritis, unspecified site (ICD-10) Acid reflux ?K21.9 - Gastro-esophageal reflux disease without esophagitis (ICD-10) High cholesterol ?E78.00 - Pure hypercholesterolemia, unspecified (ICD-10) Hypertension ?I10 - Essential (primary) hypertension (ICD-10) Surgical History History of hysterectomy ?Z90.710 - Acquired absence of both cervix and uterus (ICD-10) History of appendectomy ?Z90.49 - Acquired absence of other specified parts of digestive tract (ICD-10) Social History Smoking status: Former smoker Meds Home Medications and Allergies Home Medications ?Medication ?Instructions ?Recorded ?Confirmed ?Type amlodipine 2.5 mg tablet 2.5 mg PO DAILY 08/04/23 09/19/25 History meloxicam 15 mg tablet 15 mg PO DAILY 08/04/23 09/19/25 History omeprazole 40 mg capsule,delayed 40 mg PO DAILY 08/04/23 09/19/25 History release rosuvastatin 10 mg tablet (Crestor) 10 mg PO DAILY 08/04/23 09/19/25 History alendronate 70 mg tablet mg PO 04/14/25 History tramadol 50 mg tablet mg 04/14/25 History diazepam 10 mg tablet 10 mg PO Q8H 09/19/25 09/19/25 History Allergies Allergy/AdvReac Type Severity Reaction Status Date / Time lisinopril Allergy Cough Verified 09/19/25 10:45 Exam Constitutional Documenting provider has reviewed patient's vital signs: yes Common normals: no apparent distress, oriented x3 and alert General appearance: cooperative HENMT Common normals: normocephalic, hearing grossly normal bilaterally and moist oral mucous membranes Head and scalp: normocephalic Eye Common normals: PERRL Pupil: PERRL Neck & C-Spine Common normals: full ROM General: normal visual inspection Chest Common normals: inspection of chest normal Respiratory Common normals: normal respiratory effort, no retractions and no use of accessory muscles Back & Pelvis Lumbar spine/lower back: straight leg raise negative bilaterally; ROM not limited, no pain with ROM and no lumbar spinal tenderness Other: strength 5/5 in BLE sensation intact BLE Neuro Common normals: oriented x3 Sensorium/orientation: alert Psych Common normals: mental status grossly normal, thought process normal, cooperative, affect normal, speech normal and activity/motor behavior normal Speech: normal speech Thought process: normal thought process Results Additional Findings Additional findings: If on a controlled substance or opioids, I have checked an [place] report on this patient and there are no aberrancies noted in the prescribing history.??If on a controlled substance or opioid a drug screen was completed and reviewed within the last year, and if there has not been a drug screen completed we ordered one today to monitor higher risk, state monitored pain medication use. As part of providing excellent, safe, comprehensive care, the following was completed at our patient's visit: 1. A medication reconciliation and review to ensure accurate knowledge of current/active medications, including asking our patients to inform us about any kvaa-edv-ksanpnl medications or herbal remedies/nutritional supplements/alternative remedies. 2. A review to specifically ensure our patients have had annual screening for screening for depression, screening for tobacco use, and screening for unhealthy alcohol use. For concerning screenings had a discussion with the patient, provided patient education, and recommended follow-up with primary care provider when appropriate. If patient noted with a risk of falling, they received education on strength, gait, and balance training to prevent future risk of falling. Portions of this note may have been carried over from the previous visit and updated as appropriate. Please note this office utilizes paper charting in addition to the electronic medical record. A list of current medications, vitals, and PMH is available there as the clinical staff outside of myself do not have access to [facility] charting during the clinic day operations. As part of providing quality comprehensive care the current medications, vitals, and PMH were reviewed in the paper chart. Assessment and Plan Assessment and Plan (1) Lumbar spondylosis: Plan The patient has had over 3 months of moderate to severe low back pain with functional impairment and inadequate response to conservative care including NSAIDS (unless there are contraindication such as concurrent blood thinners), multiple oral or topical pain medications, and home exercise program/physical therapy.? Patient has completed >6 weeks of guided home exercise program and/or formal physical therapy program without relief of their symptoms.? pain significantly improved post bilateral L2-3 L3-4 facet RFA, noting >50% improvement from prior bilateral L4-5 L5-S1 facet RFA as well continue HEP as tolerated continue medication management through pcp f/u 6 months, sooner if needed
--- OUTSIDE RECORDS SUMMARY | 2025-11-02 08:20 | XMS_ITS | CCD ---
Author Organization [facility] Care Team Providers Care Counterintelligence Specialist Name Role Phone BLU KOTHARI Attending BLU Champagne Consulting BLU Champagne Primary Care Unavailable BLU KOTHARI Admitting Blu Champagne MD Primary Care Provider Blu Kothari MD Unavailable Blu Kothari II Primary Care Provider Blu Kothari II Attending Provider Blu Kothari Attending Unavailable Blu Kothari Primary Care Unavailable Blu Kothari Admitting Unavailable Jeanne RIVERA, Bouchra Giordano Attending Unavailable Jeanne RIVERA, Bouchra Giordano Attending Unavailable Jeanne RIVERA, Bouchra Giordano Attending Unavailable Jeanne RIVERA, Bouchra Giordano Attending Unavailable APRIL MERCEDES Attending Unavailable BLU KOTHARI Attending Unavailable BLU KOTHARI Referring Unavailable BLU KOTHARI Attending Unavailable BLU KOTHARI Attending Unavailable BLU KOTHARI Attending Unavailable ALEXIA REID Attending Unavailable JR. WAITE GEORGE C Attending UnavailAPRIL James Attending Unavailable APRIL MERCEDES Attending Unavailable APRIL MERCEDES Attending Unavailable Blu Kothari MD Unavailable Allergies Allergy ClassificationReported Allergen(s)Allergy TypeDate of OnsetReaction(s) Facility (20 sources)Angiotensin-converting enzyme inhibitor agentDrug [id number] [facility] Medications Current Medications MedicationDrug Class(es)DatesSig (Normalized)Sig (Original)acetaminophen 325 mg / oxyCODONE hydrochloride 5 mg oral tablet (3 sources)Opioid AgonistStart: 11-04-2024 End: 58-07-3903ftzo 1 tablet by mouth every six hours for painoxyCODONE- acetaminophen (Percocet) 5-325 MG tablet Indications: S/P arthroscopy of right shoulder Take 1 tablet by mouth every 6 (six) hours if needed for severe pain for up to 5 days 20 tablet 11/04/2024 11/09/2024 ActiveStart: 10-19-2024 End: 55-36-7185lotl 1 tablet by mouth every six hours for painoxyCODONE- acetaminophen (Percocet) 5-325 MG tablet Indications: Internal derangement of right shoulder Take 1 tablet by mouth every 6 (six) hours if needed for moderate pain for up to 5 days 20 tablet 10/19/2024 10/24/2024 Activealendronic acid 70 mg oral tablet (20 sources)BisphosphonateStart: 02-02-2024 End: 96-71-1409bymluolduxb (Fosamax) 70 MG tablet Indications: Age-related osteoporosis without current pathological fracture TAKE 1 TABLET EVERY 7 DAYS IN THE MORNING WITH A FULL GLASS OF WATER, ON AN EMPTY STOMACH, AND DO NOT TAKE ANYTHING ELSE OR LIE DOWN FOR THE NEXT 30 MINUTES 4 tablet 11 11/29/2024 Active amLODIPine 2.5 mg oral tablet (20 sources)Dihydropyridine Calcium Channel BlockerStart: 03-21-2025 End: 81-97-5772ervp 1 tablet by mouth once dailyamLODIPine (Norvasc) 2.5 MG tablet Indications: Primary hypertension Take 1 tablet (2.5 mg) by mouth Daily 90 tablet 3 08/12/2025 08/12/2026 ActiveStart: 53-18-8467yyoz 1 tablet by mouth once dailyamLODIPine (Norvasc) [...] tablet (20 sources)Nonsteroidal Anti-inflammatory DrugStart: 01-21-2025 End: 91-42-7732eivo 1 tablet by mouth once dailymeloxicam (Mobic) 15 MG tablet Indications: Cervical spondylosis without myelopathy Take 1 tablet (15 mg) by mouth Daily 90 tablet 3 08/12/2025 08/12/2026 ActiveStart: 12-29-2023 End: 23-72-5438hyop 1 tablet by mouth at mealtimemeloxicam (Mobic) 15 MG tablet Indications: Cervical spondylosis without myelopathy Take 1 tablet (15 mg) by mouth in the morning. Take with food. 100 tablet 3 12/29/2023 ActiveOmega-3 Fatty Acids (Fish Oil) 1000 MG capsule delayed-release (20 sources) End: 65-16-5376Jtjtv-3 Fatty Acids (Fish Oil) 1000 MG capsule [...] release oral capsule (20 sources)Proton Pump InhibitorStart: 72-43-2631ohrv 1 capsule by mouth once daily before mealtimeomeprazole (PriLOSEC) [address] capsule Indications: Gastroesophageal reflux disease without esophagitis TAKE 1 CAPSULE BY MOUTH EVERY DAY IN THE MORNING before a meal 100 capsule 3 03/14/2025 ActiveStart: 20-62-7145cqvf 1 capsule by mouth before mealtimeomeprazole (PriLOSEC) [...] tablet (20 sources)HMG-CoA Reductase InhibitorStart: 12-02-2023 End: 83-45-3286cmtd 1 tablet by mouth once dailyrosuvastatin (Crestor) 10 MG tablet Indications: Primary hypertension Take 1 tablet (10 mg) by mouth Daily 90 tablet 3 08/12/2025 08/12/2026 ActivetraMADol hydrochloride 50 mg oral tablet (20 sources)Opioid AgonistStart: 12-22-2023 End: 19-90-2191ubhn 1 tablet by mouth every six hours for paintraMADol (Ultram) 50 MG tablet Indications: Lumbosacral spondylosis with radiculopathy Take 1 tablet (50 mg) by mouth every 6 (six) hours if needed for severe pain 60 tablet 1 02/18/2025 Activevitamin b12 1 mg oral tablet (20 sources)Vitamin B12 End: 04-10-5048ebku 1 tablet by mouth once dailycyanocobalamin (Vitamin B-12) 1000 MCG tablet Take 1,000 mcg by mouth Daily 08/12/2025 Discontinuedzinc gluconate 50 mg oral tablet (20 sources) End: 33-97-7973bduw gluconate 50 MG tablet Take 25 mg by mouth in the morning. 08/12/2025 Discontinued Completed/Discontinued Medications MedicationDrug Class(es)DatesSig (Normalized)Sig (Original)magnesium oxide 400 mg oral tablet (4 sources) End: 64-09-9773aeqe 1 tablet by mouth in the morningmagnesium oxide (Mag-Ox) 400 mg tablet Take 400 mg by mouth in the morning and 400 mg before bedtime. 07/21/2024 DiscontinuedtiZANidine 2 mg oral tablet (3 sources)Central alpha-2 Adrenergic AgonistStart: 12-11-2023 End: 55-71-2242jsng 1 tablet by mouth twice daily as neededtiZANidine (Zanaflex) 2 MG tablet TAKE 1 TO 2 TABLETS BY MOUTH TWICE A DAY NEEDED FOR SPASM 12/1107/21/2024 Discontinued Problems Active Problems Problem ClassificationProblemDateDocumented DateEpisodic/ChronicAbdominal pain (6 sources)Right flank pain; Translations: [Unspecified abdominal pain] 74-47-0529OukomfkkDjnpeprkknztnl/social admission (2 sources)Patient encounter status; Translations: [Other specified counseling] 18-94-6503MtkqrxoyTkhrltwui of lipid metabolism (20 sources)Raised low density lipoprotein cholesterol; Translations: [Pure hypercholesterolemia, unspecified]Onset: 163376-88-8516KkywcazBdgysvwokd disorders (20 sources)Gastroesophageal reflux disease without esophagitis; Translations: [Gastro-esophageal reflux disease without esophagitis]Onset: 07-03-2023 89-66-5716UkesckgRhoraceyb hypertension (20 sources)Hypertensive disorder; Translations: [Essential (primary) hypertension]Onset: 313187-64-4482RpnxoitXisbykpk; including migraine (1 source)Headache; including migraine; Translations: [HEADACHE UNSPECIFIED] Onset: 90-93-5756Lndgquhmlbetx mental health disorders (2 sources)Primary insomnia; Translations: [Primary insomnia]01-60-2077Tqsyslm Osteoporosis (20 sources)Senile osteoporosis; Translations: [Age-related osteoporosis without current pathological fracture]Onset: 362220-36-1771ZkhjazoItjva bone disease and musculoskeletal deformities (4 sources)Idiopathic scoliosis of thoracic and lumbar spine; Translations: [Other idiopathic scoliosis, thoracolumbar region]83-74-5990KdvesjaKbpjg lower respiratory disease (1 source)Cough; Translations: [COUGH]Onset: 87-92-4138PnxrvbjbUhvps non- traumatic joint disorders (8 sources)Derangement of right shoulder joint; Translations: [Other specific joint derangements of right shoulder, not elsewhere classified]90-58-6715Sppwaod Other nutritional; endocrine; and metabolic disorders (20 sources)Hypercalcemia; Translations: [Hypercalcemia]Onset: 07-03-2023 90-07-0538HgpxzkcTqmddfif codes; unclassified (12 sources)History of arthroscopic procedure on shoulder; Translations: [Other specified postprocedural states]94-68-6986QmgcdgugRnclxolo codes; unclassified (2 sources)Other problems related to lifestyle; Translations: [Other problems related to lifestyle]94-53-0073VwrktcerEjafyeubars; intervertebral disc disorders; other back problems (20 sources)Cervical spondylosis without myelopathy; Translations: [Spondylosis without myelopathy or radiculopathy, cervical region]Onset: 927037-38-8891 ChronicUnclassified (4 sources)CONTACT W/AND (SUSP) EXPOS COVID-19; Translations: [CONTACT W/AND (SUSP) EXPOS COVID-19]Onset: 12-21-2020 Past or Other Problems Problem ClassificationProblemDateDocumented DateEpisodic/ChronicMood disorders (20 sources)Mood disordersOnset: 681811-21-2509Kgelp connective tissue disease (2 sources)Capsulitis; Translations: [Other enthesopathies, not elsewhere classified]62-81-8429ZzqlvsouZoqpd non-traumatic joint disorders (2 sources)Pain in right shoulder; Translations: [Pain in joint, shoulder region]97-79-1227UshzncvqQxxqv nutritional; endocrine; and metabolic disorders (20 sources)Body mass index 25-29 - overweight; Translations: [Overweight]Onset: 831862-12-5199TabbyzpyHvzkwyjy codes; unclassified (20 sources)Insomnia; Translations: [Insomnia, unspecified]Onset: 07-03-2023 15-75-6843DlktykorEjbqdamfwcw; intervertebral disc disorders; other back problems (20 sources)Spasm of muscle of lower back; Translations: [Muscle spasm of back] Onset: 469726-35-9097ZwiugdnuZxkzt infection (20 sources)Postherpetic neuralgia; Translations: [Other postherpetic nervous system involvement]Onset: 188848-57-2593Xqumcvhm Results Test NameValueInterpretationReference RangeFacilityCBC (INCLUDES DIFF/PLT)on 47-17-6590Veoulgjdi (Bld) [#/Vol]0.083 10*3/uLNormal0-200[facility] Comment on above:Performed By: #### 8006, 2340, 87819 #### [facility] [address], [address] [place] [address] Ward Supervisor: Truman Liao MDBasophils/100 WBC (Bld)1.4 %NormalQuest DiagnosticsComment on above:Performed By: #### 6399, 7600, 74105 #### [facility] of [address], [address] [place] [address] Ward Supervisor: Truman Liao MDEosinophils (Bld) [#/Vol]0.372 10*3/uLNormal 15-500Quest DiagnosticsComment on above:Performed By: #### 6399, 7600, 48436 #### [facility] of [address], [address] [place] [address] Ward Supervisor: Truman SCRUGGSosinophils/100 WBC (Bld)6.3 %NormalQuest DiagnosticsComment on above:Performed By: #### 6399, 7600, 47403 #### [facility] [address], [address] [place] [address] Ward Supervisor: Truman Liao MDErythrocyte distribution width (RBC) [Ratio] 12.9 %Yixnfr86.0-15.0Quest DiagnosticsComment on above:Performed By: #### 6399, 7600, 66975 #### [facility] [place] [address] Ward Supervisor: Truman Liao MDHematocrit (Bld) [Volume fraction]43.0 %Normal 35.0-45.0[facility] DiagnosticsComment on above:Performed By: #### 6399, 7600, 13822 #### [facility] of [place] [address] Ward Supervisor: Truman Liao MDHemoglobin (Bld) [Mass/Vol]13.4 g/dLNormal 11.7-15.5Quest DiagnosticsComment on above:Performed By: #### 6399, 7600, 34798 #### [facility] of [address], [address] [place] [address] Ward Supervisor: Truman Liao MDLymphocytes (Bld) [#/Vol]2.301 10*3/uLNormal 850-3900Quest DiagnosticsComment on above:Performed By: #### 6399, 7600, 03610 #### [facility] of [place] [address] Ward Supervisor: Truman Liao MDLymphocytes/100 WBC (Bld)39.0 %NormalQuest DiagnosticsComment on above:Performed By: #### 6399, 7600, 71510 #### [facility] of [place] [address] Ward Supervisor: Truman Liao MDMCH (RBC) [Entitic mass]30.2 baPabgep64.0-33.0 [facility]osticsComment on above:Performed By: #### 6399, 7600, 11645 #### [facility] [place] [address] Ward Supervisor: Truman MAURICIOCHC (RBC) [Mass/Vol]31.2 g/dLLow32.0-36.0 [facility]osticsComment on above:Result Comment: For adults, a slight decrease in the calculated MCHC value (in the range of 30 to 32 g/dL) is most likely not clinically significant; however, it should be interpreted with caution in correlation with other red cell parameters and the patient's clinical condition.Performed By: #### 6399, 7600, 99939 #### [facility] of [place] [address] Ward Supervisor: Truman Liao MDMCV (RBC) [Entitic vol]96.8 dFGqkldb03.0-100.0 [facility]osticsComment on above:Performed By: #### 6399, 7600, 56033 #### [facility] of [place] [address] Ward Supervisor: Truman Liao MDMonocytes (Bld) [#/Vol]0.596 10*3/uLNormal 200-950Quest DiagnosticsComment on above:Performed By: #### 6399, 7600, 52330 #### [facility] of [address], [address] [place] [address] Ward Supervisor: Truman Liao MDMonocytes/100 WBC (Bld)10.1 %NormalQuest DiagnosticsComment on above:Performed By: #### 6399, 7600, 79468 #### [facility] of [address], [address] [place] [address] Ward Supervisor: Truman Liao MDNeutrophils (Bld) [#/Vol]2.549 10*3/uLNormal 1500-7800Quest DiagnosticsComment on above:Performed By: #### 6399, 7600, 08009 #### [facility] of [address], [address] [place] [address] Ward Supervisor: Truman Liao MDNeutrophils/100 WBC (Bld)43.2 %NormalQuest DiagnosticsComment on above:Performed By: #### 6399, 7600, 44527 #### [facility] of [address], [address] [place] [address] Ward Supervisor: Truman Liao MDPlatelet mean volume (Bld) [Entitic vol]9.8 fL Normal7.5-12.5Quest DiagnosticsComment on above:Performed By: #### 6399, 7600, 24199 #### [facility] of [address], [address] [place] [address] Ward Supervisor: Truman Liao MDPlatelets (Bld) [#/Vol]308 10*3/uLNormal 140-400Quest DiagnosticsComment on above:Performed By: #### 6399, 7600, 23155 #### [facility] of [address], [address] [place] [address] Ward Supervisor: Truman Liao MDRBC (Bld) [#/Vol]4.44 10*6/uLNormal3.80-5.10 [facility]osticsComment on above:Performed By: #### 6399, 7600, 32810 #### [facility] of [address], [address] [place] [address] Ward Supervisor: Truman Liao MDWBC ([facility]) [#/Vol]5.9 10*3/uLNormal3.8-10.8 [facility]osticsComment on above:Performed By: #### 6399, 7600, 79508 #### [facility] of [address], [address] [place] [address] Ward Supervisor: Truman Liao [facility] SHAWNEEOMPREHENSIVE METABOLIC PANELon 08-13-2025 Albumin [Mass/Vol]4.3 g/dLNormal3.6-5.1Quest DiagnosticsComment on above: Performed By: #### 6399, 7600, 97762 #### [facility] of [place] [address] Ward Supervisor: Truman Liao MDAlbumin/Globulin [Mass ratio]1.7 {ratio}Normal 1.0-2.5Quest DiagnosticsComment on above:Performed By: #### 6399, 7600, 93901 #### [facility] of [place] [address] Ward Supervisor: Truman Laio MDALP [Catalytic activity/Vol]38 U/WQmyjxv60-256 [facility]osticsComment on above:Performed By: #### 6399, 7600, 63844 #### [facility] of [place] [address] Ward Supervisor: Truman Liao MDALT [Catalytic activity/Vol]13 U/LNormal6-29 [facility]osticsComment on above:Performed By: #### 6399, 7600, 09272 #### [facility] of [place] [address] Ward Supervisor: Truman Liao MDAST [Catalytic activity/Vol]14 U/AYooyen26-45 [facility]osticsComment on above:Performed By: #### 6399, 7600, 15378 #### [facility] of [address], [address] [place] [address] Ward Supervisor: Truman Liao MDBilirubin [Mass/Vol]0.5 mg/dLNormal0.2-1.2 [facility]osticsComment on above:Performed By: #### 6399, 7600, 15506 #### [facility] of [address], [address] [place] [address] Ward Supervisor: Truman Liao MDCalcium [Mass/Vol]10.0 mg/dLNormal8.6-10.4 [facility]osticsComment on above:Performed By: #### 6399, 7600, 35145 #### [facility] of [address], [address] [place] [address] Ward Supervisor: Truman Liao MDChloride [Moles/Vol]108 mmol/VTmtmsc57-668 [facility]osticsComment on above:Performed By: #### 6399, 7600, 23245 #### [facility] of [place] [address] Ward Supervisor: Truman Liao MDCO2 [Moles/Vol]27 mmol/KZjylnw93-39Nxnuw DiagnosticsComment on above:Performed By: #### 6399, 7600, 10710 #### [facility] [place] [address] Ward Supervisor: Truman ABDIreatinine [Mass/Vol]0.52 mg/dLLow0.60-1.00 [facility]osticsComment on above:Performed By: #### 6399, 7600, 98556 #### [facility] of [place] [address] Ward Supervisor: Truman Liao MDGFR/1.73 sq M.predicted among non-blacks MDRD (S/P/Bld) [Vol rate/Area]100 mL/min/{1.73_m2}Normal> OR = 60[facility] Comment on above:Performed By: #### 6399, 7600, 26105 #### [facility] of [place] [address] Ward Supervisor: Truman Liao MDGlobulin (S) [Mass/Vol]2.5 g/dLNormal1.9-3.7 [facility]osticsComment on above:Performed By: #### 6399, 7600, 05492 #### [facility] of [place] [address] Ward Supervisor: Truman Liao MDGlucose [Mass/Vol]99 mg/xONzcbdv25-66Choqu DiagnosticsComment on above:Result Comment: Fasting reference intervalPerformed By: #### 6399, 7600, 21581 #### [facility] of [place] [address] Ward Supervisor: Truman Liao MDPotassium [Moles/Vol]4.3 mmol/LNormal3.5-5.3 [facility]osticsComment on above:Performed By: #### 6399, 7600, 59886 #### [facility] of [place] [address] Ward Supervisor: Truman Liao MDProtein [Mass/Vol]6.8 g/dLNormal6.1-8.1[facility] DiagnosticsComment on above:Performed By: #### 6399, 7600, 41806 #### [facility] of [place] [address] Ward Supervisor: Truman Liao MDSodium [Moles/Vol]143 mmol/EZbjzra090-854Bvnye DiagnosticsComment on above:Performed By: #### 6399, 7600, 29884 #### [facility] of [place] [address] Ward Supervisor: Truman Liao MDUrea nitrogen [Mass/Vol]12 mg/dLNormal7-25 [facility]osticsComment on above:Performed By: #### 6399, 7600, 24539 #### [facility] of [address] Ward Supervisor: Truman Root nitrogen/Creatinine [Mass ratio]23 mg/mg High6-22Quest DiagnosticsComment on above:Performed By: #### 6399, 7600, 85589 #### [facility] [address], [address] [place] [address] Ward Supervisor: Truman Liao MDLIPID PANEL, STANDARD 85-85-1363Txxzpxhoabq [Mass/Vol]174 mg/dLNormal<200Quest DiagnosticsComment on above:Order Comment: FASTING:YES FASTING: YESPerformed By: #### 6399, 7600, 58180 #### [facility] [address], [address] [place] [address] Ward Supervisor: Truman Liao MDCholesterol in HDL [Mass/Vol]86 mg/dLNormal> OR = 50Quest DiagnosticsComment on above:Order Comment: FASTING:YES FASTING: YESPerformed By: #### 6399, 7600, 80685 #### [facility] [address], [address] [place] [address] Ward Supervisor: Truman Liao MDCholesterol in LDL [Mass/Vol]73 mg/dLNormal [facility]osticsComment on above:Order Comment: FASTING:YES FASTING: YESResult Comment: Reference range: <100 Desirable range <100 mg/dL for primary prevention; <70 mg/dL for patients with CHD or diabetic patients with > or = 2 CHD risk factors. LDL-C is now calculated using the Hair calculation, which is a validated novel method providing better accuracy than the Friedewald equation in the estimation of LDL-C. Brad HANKINS et al. MAMIE. 2013;310(19): 1952-2174 (http://education.TIMPIK.[employer]/faq/RDU646)Performed By: #### 6399, 7600, 78636 #### [facility] [address], [address] [place] [address] Ward Supervisor: Truman Liao MDCholesterol.total/Cholesterol in HDL [Mass ratio]2.0 {ratio}Normal<5.0Quest DiagnosticsComment on above:Order Comment: FASTING:YES FASTING: YESPerformed By: #### 6399, 7600, 78821 #### [facility] [place] [address] Ward Supervisor: Truman BERGMAN HDL BYXKCOTMGUO21 mg/dL (calc)Normal<130 [facility]osticsComment on above:Order Comment: FASTING:YES FASTING: YESResult Comment: For patients with diabetes plus 1 major ASCVD risk factor, treating to a non-HDL-C goal of <100 mg/dL (LDL-C of <70 mg/dL) is considered a therapeutic option.Performed By: #### 6399, 0, 93764 #### [facility] [place] [address] Ward Supervisor: Truman Liao MDTriglyceride [Mass/Vol]70 mg/dLNormal<150Quest DiagnosticsComment on above:Order Comment: FASTING:YES FASTING: YESPerformed By: #### 6399, 0, 07740 #### [facility] [place] [address] Ward Supervisor: Truman Liao MDCONFLUENCE HEALTH W/REFLEX TO FT4on 72-59-4439ATH W/REFLEX TO FT41.58 mIU/LNormal0.40-4.50Quest DiagnosticsComment on above:Performed By: #### 6399, 7599, 50438 #### [facility] [place] [address] Ward Supervisor: Truman Liao MDMR lumbar spine wo [facility] 15-54-4167LP lumbar spine wo [facility] [place] [address] MRI Report Signed Patient: Miguel Gonzalez MR#: [id number] : 1955 Acct:[id number] Age/Sex: 69 / F ADM Date: 03/18/25 Loc: MR Room: Type: [facility] CLI Attending Dr: Blu Kothari II, MD Copies [...] narrowing identified. L2-3: Broad-based disc bulge with xfej-yv-auxtxmqd facet arthropathy. Minimal foraminal narrowing. Canal is patent. L3-L4: Circumferential disc bulge with moderate facet arthropathy. Mild neural foraminal narrowing. Minimal central canal stenosis. L4-5: Disc desiccation. Moderate disc facet arthropathy. No significant central canal or neural from narrowing identified. L5-S1: Circumferential disc bulge with moderate facet arthropathy. Moderate right moderate left neural foraminal narrowing. MR/MR lumbar spine wo con IMPRESSION: Tfqt-qn-fyldaalv multilevel degenerative changes without high-grade canal or neural foraminal narrowing. Moderate left neural foraminal narrowing at L5-S1 Impression dictated by: Ever Odonnell M.D. 03/18/2025 3:49 PM Dictation Location: [place] [address] Transcribed By: [facility] 03/18/25 1546 Dictated By: Ever Odonnell MD 03/18/25 1509 Signed By: 03/18/25 1549[facility] Centeretic resonance imaging reportOrdered By: Ever Odonnell on 88-16-2561Iwsjn reportLAKE COUNTY [facility] [place] [address] [place] [address] MRI Report Signed Patient: Miguel Gonzalez MR#: [id number] : 1955 Acct:[id number] Age/Sex: 69 / F ADM Date: 5 Loc: MR Room: Type: [facility] Attending Dr: Blu Kothari II, MD [...] narrowing identified. L2-3: Broad-based disc bulge with agsh-su-eckrssvl facet arthropathy. Minimal foraminal narrowing. Canal is patent. L3-L4: Circumferential disc bulge with moderate facet arthropathy. Mild neural foraminal narrowing.Minimal central canal stenosis. L4-5: Disc desiccation. Moderate disc facet arthropathy. No significant central canal or neural from narrowing identified. L5-S1: Circumferential disc bulge with moderate facet arthropathy. Moderate right moderate left neural foraminal narrowing. MR/MR lumbar spine wo con IMPRESSION: Gdsn-lb-ufbgkuxt multilevel degenerative changes without high-grade canal or neural foraminal narrowing. Moderate left neural foraminal narrowing at L5-S1 Impression dictated by: Ever Odonnell M.D. 03/18/2025 3:49 PM Dictation Location: [facility] Transcribed By: [facility] 03/18/25 1549 Dictated By: Ever Odonnell MD 03/18/25 1509 Signed By: 03/18/25 1549 [facility] Work Phone: CT ABDOMEN PELVIS W IV CONTRASTon 64-09-3596WB ABDOMEN PELVIS W IV CONTRASTCT of the [...] is a prominent scoliosis ELECTRONICALLY SIGNED BY: Renetta Meyer AvailableCREATININEon 71-30-0310Hrgidepqqr [Mass/Vol]0.55 mg/dLNormal0.50-1.05Quest DiagnosticsComment on above:Performed By: #### 375 #### [facility] [address], [address] [place] [address] Ward Supervisor: Truman Liao MDGFR/1.73 sq M.predicted among non-blacks MDRD (S/P/Bld) [Vol rate/Area]99 mL/min/{1.73_m2}Normal> OR = 60[facility] Comment on above:Performed By: #### 375 #### [facility] [address], [address] [place] [address] Ward Supervisor: Truman Liao MDUrinalysis macro (dipstick) panel (U)on 94-70-9175Tviqymbyl, UANegativeNegative - 4(70) +++ mg/dLNOMS HealthcareBlood, UANegativeNegative - 50 Tan/mcLNOMS HealthcareGlucose, UANegativeNegative - 2000(110) ++++ mg/dLNOMS HealthcareKetones, UANegativeNegative - 160(16) ++++ mg/dLNOMS HealthcareLeukocytes, UANegativeNegative - 500+++ [place]/mcLNOMS HealthcareNitrite, UANegativeNegative - PositiveNOMS HealthcarepH, UA6.55 - 9 NOMS HealthcareProtein, UANegativeNegative - 2000(20) ++++ mg/dLNOMS Healthcare Spec Grav, UA1.0051 - 1.03NOMS HealthcareUrobilinogen, UA0.20.2 - 12 mg/dLNOMS HealthcareNOMS HealthcareXR Shoulder - right 2 Viewson 59-89-1120Fsubhmm Result: scapular Y and AP, and axillary x-rays of right shoulder showed humeral head to be well centered in the glenoid fossa. There was no evidence of subluxation or dislocation. There was no evidence of degenerative joint disease. Acromioclavicular joint appeared to be well preserved. There was no acute bony process including but not limited to fracture and/or dislocation. Impression: Unremarkable right shoulder. [facility]XR Shoulder - right 2 ViewsOrdered By: Jr. Waite on 08-02-2024 [facility] [employer] Work Phone: xr Shoulder - right 2 Viewson 64-43-1477Ocbgvrkxl Study observation (narrative)[facility]AC[facility] SP[facility] 3Von 14-57-5015Q[address] [address] XRay Report Signed Patient: MIGUEL GONZALEZ MR#: [id number] : 1955 Acct:[id number] Age/Sex: 68 / F ADM Date: 12/26/23 Loc: RAD Attending Dr: Arline Kohli QUARANTINE OFFICER Ordering Physician: Arline Kohli NP Date of Service: 12/26/23 Procedure(s): XR thoracic spine 3V Accession Number(s): [id number] cc: BLU KOTHARI ; Arline Kohli NP [address] [address] Patient Name: MGIUEL GONZALEZ MRN: [id number] date: 1955 Sex: F Assigned Patient Location: [facility] Current Patient Location: [facility] Accession/Order Number: [id number] Exam Date: 12/26/2023 10:18 Report Date: 12/26/2023 11:01 At the request of: ARLINE KOHLI Procedure: XR thoracic spine 3V EXAMINATION: XR [...] Signed By: 12/26/23 1104 DD/ 1101 TD/TT: Clinical Project Leader:STEPHANIEadiologolive, Radiologist, - 12/29/2023 [place] [address] XRay Report Signed Patient: MIGUEL GONZALEZ MR#: [id number] : 1955 Acct:[id number] Age/Sex: 68 / F ADM Date: 12/26/23 Loc: RAD Attending Dr: Arline Kohli QUARANTINE OFFICER Ordering Physician: Arline Kohli NP Date of Service: 12/26/23 Procedure(s): XR thoracic spine 3V Accession Number(s): [id number] cc: BLU KOTHARI ; Arline Kohli NP [place] [id number] Patient Name: MIGUEL GONZALEZ MRN: [id number] date: 1955 Sex: F Assigned Patient Location: [facility] Current Patient Location: [facility] Accession/Order Number: [id number] Exam Date: 12/26/2023 10:18 Report Date: 12/26/2023 11:01 At the request of: ARLINE KOHLI Procedure: XR thoracic spine 3V EXAMINATION: XR [...] Signed By: 12/26/23 1104 DD/ 1101 TD/TT: Clinical Project Leader: LAVON HealthcareRadiology Study observation (narrative)[facility] HealthcareXR THORACIC SPINE 3VOrdered By: Radiologist Radiology on 60-48-1675[facility] Work Phone: coding Summary.on 99-73-1338Mecdnh Summary. CD:[id number]+PGhlYWQ+DY3GIXXoH13xiCFjhD5HJ5pIGV7IQOGIZOUGWK2WQW1zo NU9KAibQ9LqweSk [file] ZTog (more content not included)...NormalFisher iMke Medical CenterED Note-Physicianon 51-69-8996KJ Note-PhysicianBasic Information Time Seen: Alexandr Eduardo PA-C 04/05/2021 [...] They are unsure of who the cats procedure analyst is. She states they are unsure whether the cat is up-to-date on its immunizations. She states that her dog is one after the cat, and she attempted to slat pickler the cat when the cat turned [...] Appropriate mood & affect. Integumentary: Warm, Dry, [place]. Puncture wounds noted to the left thumb [...] KOTHARI In 3 days 04/08/2021 EDT [address] [place] [address]- Business(1) Additional Instructions: Wear the splint for [...] foreign body noted. Read By: Alexandr Eduardo PA-CSelect Medical Cleveland Clinic Rehabilitation Hospital, BeachwoodComment on above:Result Comment: Electronically Signed By: Alexandr Eduardo PA-C\.br\Date and Time Signed: 04/05/21 21:31 EDT\.br\Electronically Co- Signed By: Abdoulaye Watson M.D.\.br\Date and Time Co-Signed: 04/06/21 11:28 EDTAnimal Bite Investigationon 43-68-6935Ujecri Bite Investigation [id number]#1.00CD:[address] [place], [place] [address]Consent for Treatmenton 71-93-5717Mgpavtz for Treatment [id number]#1.00CD:[address] [place], [place] [address]Discharge Instructionson 34-98-6535Kmeulkwsm Instructions [id number]#1.00CD:[address] [place] [address] Clinical Summaryon 01-93-5925YG Clinical Summary [place] [id number] ED Clinical Summary Person Information Name: MIGUEL GONZALEZ [facility] Age: 65 Years : 1955 Sex: Female Language: Estonian PCP: BLU KOTHARI MD Marital Status: Visit [...] 04/05/2021 14:46:42 04/05/2021 14:46:42 04/05/2021 14:46:42 ADDRESS: [address] [place] [address] [address] [place] [id number] [facility] DOC NOTES: MEDICAL INFORMATION: Prescriptions Given: [...] Follow up: With: Address: When: BLU KOTHARI [address] [place] [id number] [facility] (1) In 3 days 04/08/2021 Comments: Wear [...] legNormalFisher Mike Medical CenterED Patient Education Noteon 63-01-1924WA Patient Education NoteInfectious Disease Animal Bite, Adult [...] and water are not available, use hand barley steeper. ? Change your dressing as told by [...] bad smell. Medicines ? Take or apply dkur-tws-ifjsend and prescription medicines only as told by [...] wound care, antibiotic medic (more content not included)...[facility] Patient Summaryon 36-84-9605DC Patient Summary [place] [id number] Patient Discharge Instructions Person Information Name: MIGUEL GONZALEZ Age: 65 Years Arrival Date: 04/05/2021 12:55:11 Discharge Diagnosis: 1:Cat bite of left hand; 2:Cat scratch of lower leg Primary Care Physician: BLU KOTHARI MD Provider Information Primary Provider: bAdoulaye Watson M.D. Advanced Engraver Signature:Alexandr Eduardo PA-C The exam and treatment you received in the Emergency Department were for an urgent problem and are not intended as complete care. It is important that you follow up with a doctor, nurse practitioner,or physician?s urology physician assistant for ongoing care. If your symptoms [...] Follow-up Instructions: With: Address: When: BLU KOTHARI [address] [place] [address] [facility] (1) In 3 days 04/08/2021 Comments: Wear [...] opioids can be used to help relieve yuujzdhp-sl-ognivu pain and are often prescribed following a [...] your community drug take- back program or yourTeam My Mobile mail-back program, or flush them down the toilet, following guidance from the Food and Drug (more content not included)...Normal Carvalho [facility] HospitalVaccinationson 33-66-1135Qavrnigjoezv [id number]#1.00CD:127NoMar[facility] HospitalXR Finger(s) Min 2 Views Lefton 15-79-7309MI Finger(s) Min 2 Views Left Exam Date/Time: [...] Amrit Hernandez M.D. Transcribed by: MAYELIN Technologist: PollyMarion HospitalCovid-19 PCR (CVDTBH)on 75-75-7768Zglya-19 PCRNOT DETECTEDNormalNOT DETECTEDThe The Jewish HospitalComment on above:Result Comment: This test is not yet approved or cleared by the [place] FDA. When there are no FDA-approved or cleared tests available, and other criteria are met, FDA can make tests available under an emergency access mechanism called an Emergency Use Authorization (EUA). The EUA for this test is supported by the [place] of Health and Human Service's (HHS's) declaration [...] be used). Performed By: #### CVDTBH #### [facility] [address] [place], [place] [address] Adore Deutsch [facility] - WestComment on above: Result Comment: This test is not yet approved or cleared by the [place] FDA. When there are no FDA-approved or cleared tests available, and other criteria are met, FDA can make tests available under an emergency access mechanism called an Emergency Use Authorization (EUA). The EUA for this test is supported by the Derrick Follower of Health and Human Service?s (HHS?s) declaration [...] consistent with SARS-CoV-2.Performed By: #### CVDTBH #### [facility] [address] [place], [place] [address] Adore Hale Vital Signs Date TimeVital SignValuePerforming BrncbjxaiOqlnjmjo75-76-3385 08:55-0400Body ucvdqh729.8 cmDaadams Kothari MD Work Phone: NOThe Rehabilitation InstitutePwmgboyazh25-93-9518 08:55-0400Body mass index (BMI) [Ratio]26.62 kg/d4BjdtawBlu Kothari MD Work Phone: NOThe Rehabilitation InstituteUmfgkwejuj64-57-1419 08:55-0400Body rxkqac38.79 kgBlu Kothari MD Work Phone: NOThe Rehabilitation InstituteZpxkxjkehf73-89-1327 08:55-0400Diastolic blood yyrrexip42 mm[Hg]Blu Kothari MD Work Phone: NOThe Rehabilitation InstituteHbzvhsvzcs41-96-8803 08:55-0400Heart rate65 /min Blu Kothari MD Work Phone: NOThe Rehabilitation InstituteXytnpkpthi04-31-9943 08:55-0743KjV1% (BldA) [Mass fraction]97 %Blu Kothari MD Work Phone: NOThe Rehabilitation InstituteEmnfepkbeb10-86-8231 08:55-0400Systolic blood ookspmrk674 mm[Hg]Blu Kothari MD Work Phone: NOThe Rehabilitation InstituteGifxfsbhyc31-79-1924 08:54-0400Body ybtjqu498.8 cmBlu Kothari MD Work Phone: NOThe Rehabilitation InstituteHnleuvgcbe40-92-4648 08:54-0400Body mass index (BMI) [Ratio]26.81 kg/d9QexrzuBlu Kothari MD Work Phone: NOThe Rehabilitation InstituteUbnodjmwre16-77-2121 08:54-0400Body .2 kg Blu Kothari MD Work Phone: NOThe [facility] InstituteXtoymdlumx05-90-9428 08:54-0400Diastolic blood zqlxfujm908 mm[Hg]Blu Kothari MD Work Phone: NOThe [facility] InstituteNufppmuyel15-95-4082 08:54-0400Heart rate68 /min Blu Kothari MD Work Phone: [facility] CenterHsclmfkhqo46-62-1118 08:54-0400Respiratory rate16 /minDpreston Kothari MD Work Phone: NOThe Rehabilitation InstituteHygiotvkqy93-13-4900 08:54-2487DhY6% (BldA) [Mass fraction]98 %Blu Kothari MD Work Phone: NOThe Rehabilitation InstituteQajbjsgwvw55-32-6517 08:54-0400Systolic blood ndvnxaow643 mm[Hg]Blu Kothari MD Work Phone: NOThe Rehabilitation InstituteSrfujqhzfo54-03-9515 09:18-0400Body hujaph815.8 cmBlu Kothari MD Work Phone: NOThe [facility] InstituteFpkbvmjzki29-70-9263 09:18-0400Body mass index (BMI) [Ratio]26.62 kg/o6MxenpaBlu Kothari MD Work Phone: NOThe [facility] InstituteMbimzexpop82-71-6740 09:18-0400Body euknhl73.79 kgBlu Kothari MD Work Phone: NO[facility] InstituteApseghbodi61-27-4950 09:18-0400Diastolic blood ijrnezbf96 mm[Hg]Blu Kothari MD Work Phone: NOThe [facility] InstituteRbprqxlusy52-82-6281 09:18-0400Heart rate70 /min Blu Kothari MD Work Phone: [phone]-5592[facility] CenterWudsceexbl06-19-5625 09:18-1117MeT1% (BldA) [Mass fraction]99 %Blu Kothari MD Work Phone: [facility] CenterUevruoykue89-61-8820 09:18-0400Systolic blood xdigmzbi305 mm[Hg]Blu Kothari MD Work Phone: [facility] CenterBfsnjstvbs55-69-4676 09:04-0400Body efyovk389.8 cmDaadams Kothari MD Work Phone: [phone] CenterUfqyimjqxh47-16-1965 09:04-0400Body mass index (BMI) [Ratio]26.83 kg/k2TjcbyaBlu Kothari MD Work Phone: [facility] CenterZvcxohwzye31-48-5996 09:04-0400Body bukkli58.25 kgBlu Kothari MD Work Phone: [facility] CenterFhjxqchyve65-45-2585 09:04-0400Diastolic blood cjtixxko15 mm[Hg]Blu Kothari MD Work Phone: NOThe [facility] InstituteCzgffakbfz64-57-7444 09:04-0400Heart rate72 /min Blu Kothari MD Work Phone: [facility] CenterZnwrmqbpjn47-89-3851 09:04-4886TyB5% (BldA) [Mass fraction]98 %Blu Kothari MD Work Phone: [facility] CenterHcpuurrbml00-29-5935 09:04-0400Systolic blood rsymjesc320 mm[Hg]Blu Kothari MD Work Phone: noThe Rehabilitation InstituteGkayvfwxmf52-36-8517 08:16-0400Body .8 cmMattgeovanna Mercedes PA Work Phone: noThe Rehabilitation InstituteDxgajvhxsz71-54-1527 08:16-0400Body mass index (BMI) [Ratio]25.75 kg/f9Vmjgmid Mercedes PA Work Phone: [facility] CenterJpjhwiqmdf80-08-2829 08:16-0400Body lafcyi01.98 kgMatthew Mercedes PA Work Phone: noThe Rehabilitation InstituteYwcfpzdcyu18-63-5711 08:35-0400Body ailykk739.8 cmAlexia [place] PA Work Phone: noThe Rehabilitation InstituteDpqjoggleh64-78-1812 08:35-0400Body mass index (BMI) [Ratio]25.92 kg/b8Qfhje [place] PA Work Phone: [facility] CenterMjdzkswikn65-51-1245 08:35-0400Body isahmq61.34 kgKaren [place] PA Work Phone: [facility] CenterGqrhzuchuy18-10-9284 08:35-0400Diastolic blood hcjcyekq50 mm[Hg]Alexia [place] PA Work Phone: [facility] CenterXdgewmvmjv39-44-3121 08:35-0400Heart rate70 /min Alexia [place] PA Work Phone: [facility] CenterOhkmixahsb01-16-0138 08:35-0400Respiratory rate16 /minRoyeren [place] PA Work Phone: [place] [address]Fusoxglptw69-97-8141 08:35-0937HsP2% (BldA) [Mass fraction]96 %Alexia [place] PA Work Phone: NOThe Rehabilitation InstituteSdolnfsexf85-00-8076 08:35-0400Systolic blood aqeeqlnc165 mm[Hg]Alexia [place] PA Work Phone: NOThe [facility] InstituteOiwproefht99-44-1844 11:58-0400Body rivvwf050.8 cmGrant Leroy QUARANTINE OFFICER Work Phone: NOThe [facility] InstituteKfykqywgfy63-56-5890 11:58-0400Body mass index (BMI) [Ratio]25.75 kg/w4Nzkvi Leroy QUARANTINE OFFICER Work Phone: NOThe [facility] InstituteWkjqdsahsh86-70-3300 11:58-0400Body gufliv84.98 kgGrant Leroy QUARANTINE OFFICER Work Phone: NOThe [facility] InstituteZbsrmcgwps89-01-6115 14:44-0400Body hawvxp050.3 cmBlu Kothari MD Work Phone: NOThe [facility] InstituteHtldtogdbk07-38-9426 14:44-0400Body mass index (BMI) [Ratio]25.71 kg/b5KrtqueBlu Kothari MD Work Phone: [phone] Rehabilitation InstituteKwkveehtwx38-58-9113 14:44-0400Body ehtjrn64.79 kgBlu Kothari MD Work Phone: NOThe [facility] InstituteDghmmlweqc26-51-8581 14:44-0400Diastolic blood rathbrmw87 mm[Hg]Blu Kothari MD Work Phone: NOThe [facility] InstituteOeekitxcvg47-82-8948 14:44-0400Heart rate79 /min Blu Kothari MD Work Phone: NOThe [facility] InstituteCgitxxaibe27-54-3312 14:44-7201KeR9% (BldA) [Mass fraction]98 %Blu Kothari MD Work Phone: NOThe Rehabilitation InstituteQuwxdudaak48-49-4927 14:44-0400Systolic blood zeyazwaz629 mm[Hg]Blu Kothari MD Work Phone: [facility] Encounters Encounter DateEncounter TypeCare ProviderFacilityStart: 08-12-2025 End: 56-11-8498Vlvkgs flowsheetBlu Kothari MD Work Phone: [facility] [place] [facility] MedinceStart: 08-12-2025 End: 46-59-3802Rmqjox flowsheetBlu Kothari MD Work Phone: [facility] [place] [facility] MedinceStart: 08-12-2025 End: 25-43-7241Bgebpl outpatient visit 25 minutesBlu Kothari MD Work Phone: [facility] [place] [facility] MedinceComment on above:Lumbosacral spondylosis with radiculopathy (Primary Dx); Primary hypertension ; Cervical spondylosis without myelopathy; Elevated LDL cholesterol levelStart: 08-12-2025 End: 72-17-4909netmfzylibGRYEVR B BERRYNot AvailableStart: 08-08-2025 End: 61-49-8987tbnzcvxqfnWrxeezp Vytautas Giedraitis MDFacility:PM [facility] Start: 07-11-2025 End: 12-30-8530fbalitybihTetzsbx Vytautas Giedraitis MDFacility:[facility] [place] Start: 06-06-2025 End: 39-00-4486naiaqptqrlHuxgsep Vytautas Giedraitis MDFacility:PM [facility] Start: 05-02-2025 End: 82-43-5867vcrqtajfpqKwovjrg Vytautas Giedraitis MDFacility:PM [place] Start: 03-25-2025 End: 04-87-1804Qcpfan flowsSarah Kothari MD Work Phone: [facility] CI FMStart: 03-25-2025 End: 91-30-0913Jkdfgd Rosalio Kothari MD Work Phone: [facility] CI FMStart: 03-25-2025 End: 89-18-7127Uwjmpg outpatient visit 25 minutesBlu Kothari MD Work Phone: [facility] CI FMComment on above:Lumbosacral spondylosis with radiculopathy (Primary Dx)Start: 03-25-2025 End: 67-75-1604ocybyrnedjAWWVXU B BERRYNot AvailableStart: 03-18-2025 End: 64-61-0689Atvmtfm encounter procedureBlu Kothari II Work Phone: [facility] [place] Work Phone: Start: 03-18-2025 End: 49-01-3019vonpkazfvoCoctgk Berry II Work Phone: [facility] Work Phone: Start: 03-07-2025 End: 85-19-6678Bfmeet Rosalio Kothari MD Work Phone: [facility] CI FMStart: 03-07-2025 End: 61-31-1544Dgklcg Rosalio Kothari MD Work Phone: [facility] CI FMStart: 03-07-2025 End: 38-61-4389Hoagew outpatient visit 25 minutesDaadams Kothari MD Work Phone: [facility] CI FMComment on above:Lumbosacral spondylosis with radiculopathy (Primary Dx); Right flank pain, chronic; Other idiopathic scoliosis, thoracolumbar region; Lumbar disc narrowingStart: 03-07-2025 End: 08-55-7609lawgvtkwbtWIKTRK B BERRYNot AvailableStart: 02-24-2025 End: 97-52-3544ftzvzuiozaTRJMPJ B BERRYNot AvailableStart: 02-18-2025 End: 54-48-8280Asrdte flowsSarah Kothari MD Work Phone: [facility] CI FMStart: 02-18-2025 End: 94-04-1181Cvrhtm Rosalio Kothari MD Work Phone: [facility] CI FMStart: 02-18-2025 End: 76-41-8075Azsfxu outpatient visit 25 minutesDaadams Kothari MD Work Phone: [facility] CI FMComment on above:Lumbosacral spondylosis with radiculopathy (Primary Dx); Right flank pain, chronicStart: 02-18-2025 End: 98-00-6976igjpwghbbpAQEWCT B BERRYNot AvailableStart: 01-03-2025 End: 13-81-1848Fyhork Karlos MERAZ Work Phone: [facility] SWS ORTHOStart: 01-03-2025 End: 79-89-9646Doxvdx Karlos MERAZ Work Phone: [facility] SWS ORTHOStart: 01-03-2025 End: 31-72-4021Gqcfro follow up visit related to original pxFoxcrispin MERAZ Work Phone: [facility] SWS ORTHOComment on above:S/P arthroscopy of right shoulder (Primary Dx)Start: 01-03-2025 End: 86-32-0861nemhaqgywaJRIWDKH J MEYERNot AvailableStart: 12-02-2024 End: 04-33-1932Eaicpo follow up visit related to original pxFoxcrispin MERAZ Work Phone: [facility] SWS ORTHOComment on above:S/P arthroscopy of right shoulder (Primary Dx)Start: 12-02-2024 End: 98-36-0170qztcalknisTLYYKNL J MEYERNot AvailableStart: 12-02-2024 End: 84-00-5240Zbigft flowsApril MERAZ Work Phone: [facility] SWS ORTHOStart: 12-02-2024 End: 86-58-0879Yvkjto flowsApril MERAZ Work Phone: [facility] SWS ORTHOStart: 11-04-2024 End: 23-41-3216Xibtnd Karlos MERAZ Work Phone: [facility] SWS ORTHOStart: 11-04-2024 End: 13-95-9180Qayxkx flowsApril MERAZ Work Phone: [facility] SWS ORTHOStart: 11-04-2024 End: 96-46-1335Hglrho follow up visit related to original abhiApril MERAZ Work Phone: n[facility] SWS ORTHOComment on above:S/P arthroscopy of right shoulder (Primary Dx)Start: 11-04-2024 End: 62-47-0896aessjsautcOBCXFSK J MEYERNot AvailableStart: 10-19-2024 End: 05-80-5306RtwixsEwdap T Olsen NP Work Phone: [facility] FB ORTHOPAEDICSComment on above:Internal derangement of right shoulder (Primary Dx)Start: 09-23-2024 End: 58-79-7521Lvafhr flowsheetApril MERAZ Work Phone: n[facility] SWS ORTHOStart: 09-23-2024 End: 00-92-4160Xxxblj flowsheetApril MERAZ Work Phone: n[facility] SWS ORTHOStart: 09-23-2024 End: 33-60-3315Lulyxdg encounter procedureMacrispin MERAZ Work Phone: n[facility] SWS ORTHOComment on above:Pre-op examination (Primary Dx)Start: 09-23-2024 End: 07-88-6300Nmgpwcrlnwdzx examination doneApril MERAZ Work Phone: [facility] Work Phone: Start: 09-23-2024 End: 59-74-2945oazmrjkpkoHBLBAXF J MEYERNot AvailableStart: 09-15-2024 End: 17-11-2033Fajmye flowsheetJr. Son Waite DO Work Phone: [facility] SWS ORTHOStart: 09-15-2024 End: 16-10-4847Gtpbhz flowsheetJr. Son Waite DO Work Phone: [facility] SWS ORTHOStart: 09-15-2024 End: 55-25-0131Ezlgsq outpatient visit 25 minutesJr. Son Waite DO Work Phone: n[facility] SWS ORTHOComment on above:Internal derangement of right shoulder (Primary Dx)Start: 09-15-2024 End: 87-18-4229gjeodyxstoHR., SON Portillo AvailableStart: 08-23-2024 End: 62-38-9318Ozbgawzrq encounterJr. Son Waite DO Work Phone: noms SWS ORTHOComment on above:SurgeryStart: 08-20-2024 End: 04-06-6138Faihru Tammi MERAZ Work Phone: [facility] CI FMStart: 08-20-2024 End: 17-80-1412Exmfka Tammi MERAZ Work Phone: [facility] CI FMStart: 08-20-2024 End: 80-05-0816Mrcmtdp encounter procedureAlexia MERAZ Work Phone: [facility] CI FMComment on above:Medicare annual wellness visit, [...] Internal derangement of right shoulderStart: 08-20-2024 End: 47-06-8078crdrdsptwdAMCQZAndrei Zayas AvailableStart: 08-13-2024 End: 43-21-5149Wyztbx flowsheetJr. Son Waite DO Work Phone: [facility] SWS ORTHOStart: 08-13-2024 End: 56-79-8699Mrctmz flowsheetJr. Son Guerrero Stepanic DO Work Phone: [facility] SWS ORTHOStart: 08-13-2024 End: 84-20-7024Toqhoj outpatient visit 25 minutesJr. Son Guerrero Stepanic DO Work Phone: noMS SWS ORTHOComment on above:Internal derangement of right shoulder (Primary Dx)Start: 07-27-2024 End: 96-84-8354Slsbjj Amish Leroy NP Work Phone: [facility] CI ORTHOPAEDICSStart: 07-27-2024 End: 52-05-0502Quwbwp Amish Leroy QUARANTINE OFFICER Work Phone: [facility] CI ORTHOPAEDICSStart: 07-27-2024 End: 81-11-4556Vpolpb outpatient new 30 minutesJimmyt Estela Leroy NP Work Phone: noMS CI ORTHOPAEDICSComment on above:Internal derangement of right shoulder (Primary Dx); Right shoulder pain, unspecified chronicityStart: 07-21-2024 End: 10-38-1196Zgkhto outpatient visit 25 minutesDaadams Kothari MD Work Phone: [facility] CI FMComment on above:Cervical spondylosis without myelopathy (Primary Dx); Age-related osteoporosis without current pathological fracture (CMS/HCC); Primary hypertension (CMS/HCC); Gastroesophageal reflux disease without esophagitis; Lumbosacral spondylosis with radiculopathy; Elevated LDL cholesterol level (CMS/HCC); Shoulder capsulitis, rightStart: 07-21-2024 End: 03-45-5788Prearh pawanheetBlu Kothari MD Work Phone: [facility] CI FMStart: 07-21-2024 End: 80-99-3264Lmdyco Rosalio Kothari MD Work Phone: [facility] CI FMStart: 12-88-6488YbpmxhApugdl B Berry MD Work Phone: [facility] CI FMComment on above:Cervical spondylosis without myelopathy (Primary Dx)Start: 12-26-2023 End: 89-57-0221Fiazyqicn Result EncounterGeneric External Data ProviderNOMS External Department UnsolicitedStart: 12-26-2023 End: 59-96-0685Plibyrtpr Result EncounterGeneric External Data ProviderNOMS External Department UnsolicitedStart: 12-21-2020 End: 43-52-2815Wqywczp encounter procedureDAADAMS KOTHARIFacility:H1 Procedures DateProcedureProcedure DetailPerforming ClinicianStart: 69-17-0855XF lumbar spine wo June Kothari II Work Phone: Start: 83-52-6141Johbo dip stick/tablet rgnt non-auto w/o micrscpDpreston Kothari MD Work Phone: Start: 25-25-5649Evnex shoulder complete minimum 2 viewsGrant T Mariaa NICOLE Work Phone: Start: 63-64-1094BT THORACIC SPINE 3VGeneric External Data ProviderStart: 07-03-2023H/O: hysterectomyHistory of hysterectomyBlu Kothari MD Work Phone: H/O: hysterectomyHistory of hysterectomyAlexia MERAZ Work Phone: Plan of Treatment DateCare ActivityDetailAuthorStart: 13-01-3232Jcjlgwhoz for malignant neoplasm of colonNOMS HealthcareStart: 11-11-2025 End: 67-39-1679Hoegpwd encounter /19/2025 8:30 AM EST Office Visit [facility] [place] [facility] [address] [facility] [address] [place] [id number] Blu Kothari MD [address] [facility] [address] [place] [address] [facility] MedinceStart: 08-20-2025 Medicare Annual Wellness (AWV)Medicare Annual Wellness (AWV)[facility] Start: 08-12-2025 End: 35-81-0085Tyajqyyqftxii metabolic 2000 panel - Serum or PlasmaComprehensive metabolic panel Lab Routine Primary hypertension Elevated LDL cholesterol level Expected: 08/12/2025 (Approximate), Expires: 08/12/2026[facility] HealthcareComment on above:Expected: 08/12/2025 (Approximate), Expires: 08/12/2026Start: 08-12-2025 End: 51-21-9033Oacpv 1996 panel - Serum or PlasmaLipid panel Lab Routine Primary hypertension Elevated LDL cholesterol level Expected: 08/12/2025 (Approximate), Expires: 08/12/2026[facility] HealthcareComment on above:Expected: 08/12/2025 (Approximate), Expires: 08/12/2026Start: 08-12-2025 End: 61-51-0901ZUN W/REFLEX TO FT4TSH W/REFLEX TO FT4 Lab Routine Primary hypertension Elevated LDL cholesterol level Expected: 08/12/2025 (Approximate), Expires: 08/12/2026N[facility]S HealthcareComment on above:Expected: 08/12/2025 (Approximate), Expires: 08/12/2026Start: 08-12-2025 End: 51-26-7901Mvzrofw encounter ciblnzhss88/19/2025 9:00 AM EDT Office Visit [facility] [place] [facility] [address] [facility] [address] [place] [address] Blu Kothari MD [address] [facility] [address] [place] [address] ArrivedNOMS [place] James MedinceComment on above:ArrivedStart: 89-44-0638TXDZS-19 Vaccine ( season)COVID-19 Vaccine ( season)[facility] HealthcareStart: 45-18-0766Quzbxyuzu vaccinationInfluenza Vaccine (#1)[facility] HealthcareStart: 09-08-0476Jxqersriw vaccinationInfluenza Vaccine (#1)[facility] HealthcareComment on above:Postponed from 07/25/2024 (Patient Refused)Start: 03-25-2025 End: 17-61-9028Tfqayrj encounter procedureNOMS CI FMComment on above:Arrived Start: 03-07-2025 End: 01-10-4065QL Lumbar spine WO contrastMR lumbar spine wo contrast Imaging Routine Lumbosacral spondylosis with radiculopathy Other idiopathic scoliosis, thoracolumbar region Lumbar disc narrowing Expected: 03/07/2025 (Approximate), Expires: 03/07/2026[facility] Work Phone: Comment on above:Expected: 03/07/2025 (Approximate), Expires: 03/07/2026Start: 03-07-2025 End: 75-59-4230Toftkqh encounter procedureNOMS CI FMComment on above:Arrived Start: 02-18-2025 End: 24-98-7732Tcuoetfuzz [Mass/volume] in Serum or PlasmaCreatinine, Serum Lab Routine Right flank pain, chronic Expected: 02/18/2025 (Approximate), Expires: 02/18/2026[facility] HealthcareComment on above:Expected: 02/18/2025 (Approximate), Expires: 02/18/2026Start: 02-18-2025 End: 35-79-7235TG Abdomen and Pelvis W contrast IVCT abdomen pelvis w IV contrast Imaging Routine Right flank pain, chronic Expected: 02/18/2025 (Appr oximate), Expires: 02/18/2026[facility] Work Phone: Comment on above:Expected: 02/18/2025 (Approximate), Expires: 02/18/2026Start: 02-18-2025 End: 40-21-9291Zuvoriq encounter procedureNOMS CI FMComment on above:Arrived Start: 01-03-2025 End: 97-38-1513Shqimsv encounter procedureNOMS SWS ORTHOComment on above:S/P arthroscopy of right shoulder (Primary Dx)Start: 12-02-2024 End: 46-61-4305Qwjoqno encounter procedureNOMS SWS ORTHOComment on above:S/P arthroscopy of right shoulder (Primary Dx)Start: 11-04-2024 End: 33-42-0264Dodhbwx encounter procedureNOMS SWS ORTHOComment on above:S/P arthroscopy of right shoulder (Primary Dx)Start: 09-23-2024 End: 90-41-7712Ygbwxar encounter procedureNOMS SWS ORTHOComment on above:Pre-op examination (Primary Dx)Start: 09-15-2024 End: 82-70-7584Dkgmqkk encounter procedureNOMS SWS ORTHOComment on above:Arrived Start: 66-79-4833Zsoxcaasl for malignant neoplasm of breastMammogramNOMS HealthcareComment on above:Postponed from 1995 (Patient Refused)Start: 08-20-2024 End: 18-54-3223BFG W Auto Differential panel - BloodCBC and differential Lab Routine Medicare annual wellness visit, subsequent Primary hypertension (CM S/HCC) Expected: 08/20/2024 (Approximate), Expires: 08/20/2025[facility] Work Phone: Comment on above:Expected: 08/20/2024 (Approximate), Expires: 08/20/2025Start: 08-20-2024 End: 67-76-7686Ugdlmhryqenpp metabolic 2000 panel - Serum or PlasmaComprehensive metabolic panel Lab Routine Medicare annual wellness visit, subsequent Primary hypertension (CMS/HCC) Elevated LDL cholesterol level (CMS/HCC) Hypercalcemia Expected: 08/20/2024 (Approximate), Expires: 08/20/2025[facility] HealthcareComment on above:Expected: 08/20/2024 (Approximate), Expires: 08/20/2025Start: 08-20-2024 End: 13-47-1445UBZKSTXVT C AB W/RFL RNS, PCR W/RFL GENOTYPE,LIPAHEPATITIS C AB W/RFL RNS, PCR W/RFL GENOTYPE,LIPA Lab Routine Medicare annual wellness visit, subsequent Other problems related to lifestyle Expected: 08/20/2024 (Approximate), Expires: 08/20/2025[facility] HealthcareComment on above:Expected: 08/20/2024 (Approximate), Expires: 08/20/2025Start: 08-20-2024 End: 35-66-6714Kawwj 1996 panel - Serum or PlasmaLipid panel Lab Routine Medicare annual wellness visit, subsequent Primary hypertension (CMS/HCC) El evated LDL cholesterol level (CMS/HCC) Expected: 08/20/2024 (Approximate), Expires: 08/20/2025[facility] HealthcareComment on above:Expected: 08/20/2024 (Approximate), Expires: 08/20/2025Start: 08-20-2024 End: 46-35-6259Xkzsmfr encounter procedureNOMS CI FMComment on above:Arrived Start: 08-13-2024 End: 81-10-0990Sgcodql encounter procedureNOMS SWS ORTHOComment on above:Arrived Start: 08-11-2024 End: 50-07-9641Xmrtkgsnrlnp / ancillary services xhrjnuumpd16/18/2024 8:00 AM EDT Ancillary Procedure [facility] [address] [place] [address] LEJS MRStart: 08-06-2024 End: 67-73-2942Sujisjs encounter dgigbeslr06/13/2024 9:30 AM EDT Office Visit [facility] [address] [facility] [address] [place] [address] Blu Kothari MD [address] [facility] [address] [place] [address] [facility] FMStart: 09-08-2024Medicare Annual Wellness (AWV) Medicare Annual Wellness (AWV)[facility] HealthcareStart: 07-27-2024 End: 08-89-9256ED Shoulder - right WO contrastMR shoulder right wo IV contrast Imaging Routine Internal derangement of right shoulder Expected: 07/27/2024 (Approximate), Expires: 07/27/2025[facility] Work Phone: Comment on above:Expected: 07/27/2024 (Approximate), Expires: 07/27/2025Start: 07-27-2024 End: 57-84-7620Xaeaawu encounter /03/2024 9:00 AM EDT Office Visit [facility] [address] [facility] [address] [place] [address] Isabel Leroy, QUARANTINE OFFICER [address] [place] [address] Right shoulder pain, unspecified chronicityNOMS CI ORTHOPAEDICSComment on above:Right shoulder pain, unspecified chronicityStart: 26-35-7807Edvdbcyze vaccinationInfluenza Vaccine (#1)[facility] HealthcareStart: 07-21-2024 End: 37-21-3849Crqxbab encounter /28/2024 2:45 PM EDT Office Visit [facility] [address] [facility] [address] [place] [address] Blu Kothari MD [address] [facility] [address] [place] [address] ArrivedNOMS CI FMComment on above:ArrivedStart: 12-29-2023 End: 89-17-2125Leebdcw encounter bzghyfsrs20/05/2024 3:30 PM EST Office Visit [facility] [address] [facility] [address] [place] [id number] Blu Kothari MD [address] [facility] [address] [place] [address] [facility] CI FMStart: 25-26-3898Rgbdwshfubya Vaccine: 65+ Years (2 - PCV)Pneumococcal Vaccine: 65+ Years (2 - PCV)[facility] HealthcareStart: 06-20-2022 Pneumococcal Vaccine: 65+ Years (2 of 2 - PCV)Pneumococcal Vaccine: 65+ Years (2 of 2 - PCV)[facility] HealthcareStart: 77-64-5847ZOkQ/Tdap/Td Vaccines (2 - Td or Tdap)DTaP/Tdap/Td Vaccines (2 - Td or Tdap)[facility] HealthcareStart: 1995 Screening for malignant neoplasm of breastMammogramNOWA HealthcareStart: 77-54-0883Qmpnapnub for malignant neoplasm of colonNOMS HealthcareCBC W Auto Differential panel - BloodCBC and differential Lab Routine Primary hypertension Lumbosacral spondylosis with radiculopathy Elevated LDL cholesterol level Ordered: 08/12/2025[facility] Work Phone: Comment on above:Ordered: 08/12/2025 Immunizations Immunization DateImmunizationNotesCare HzsqlmjbPaimtowh70-57-6809Hszkptqewjyd Conjugate PCV 20Daadams Kothari MD Work Phone: [facility] CenterYaksuzbbnw04-73-3720vjluuzwwu, high dose seasonal, preservative-Claudia Kothari MD Work Phone: [facility] CenterOojoebaued93-03-8464rnxipoxua virus vaccine, unspecified formulationBlu Kothari MD Work Phone: [facility] CenterAdaailnrsm93-37-7938Iojlfygfo, Seasonal, Quadrivalent, AdjuvantSarah Kothari MD Work Phone: [facility] CenterYkhpjxtkvq29-23-8742dhjeorawp virus vaccine, unspecified formulationBlu Kothari MD Work Phone: [facility] CenterUihebuerks21-62-3162Bzwcuaufu, High-dose Seasonal, Quadrivalent, Preservative Claudia Kothari MD Work Phone: [facility] CenterXivkqwdpja62-16-1060ivmqkg vaccine recombinant Blu Kothari MD Work Phone: [facility] CenterDykiihcisx79-16-5549mjmrrr vaccine recombinant Blu Kothari MD Work Phone: [facility] CenterQpdxskhxbn02-57-0312Bowkohpst, High-dose Seasonal, Quadrivalent, Preservative Claudia Kothari MD Work Phone: [facility] CenterQqnmpeikbs96-62-9653qyreqjjthikb polysaccharide vaccine, 23 valentBlu Kothari MD Work Phone: NOThe [facility] InstituteCaudnxkxob66-06-6081dzsgepj toxoid, reduced diphtheria toxoid, and acellular pertussis vaccine, adsorbedDaadams Kothari MD Work Phone: NOThe [facility] InstituteHfdghbvalu99-67-2173Jhlrwfnwu, High-dose Seasonal, Quadrivalent, Preservative Claudia Kothari MD Work Phone: [facility] Payers DatePayer CategoryPayerPolicy [id number] Health [id number] [id number] [id number] [id number] 2023 [id number] [id number] 2.16.840.1.848057.3.57[id number] 2.16.840.1.541221.3.57[id number] 2..840.1.934233.3.57[id number] 2..840.1.151510.3.57[id number] 2.16.840.1.133947.3.57[id number] 2..840.1.446030.3.57[id number] 2..840.1.308422.3.57[id number] 2.840.1.835846.3.57[id number] 2..840.1.548877.3.57[id number] 2..840.1.406875.3.57[id number] 2..840.1.459105.3.57[id number] 2..840.1.722053.3.57[id number] 2..840.1.626137.3.57[id number] 2.16.840.1.577173.3.57[id number] 2.16840.1.352978.3.57[id number] 2.16.840.1.057654.3.579.2.1259Private Health InsuranceUnAccess Hospital [id number] 2.16.840.1.288034.3.579.2.531 Social History DateTypeDetailFacilityStart: 52-96-3703Nofjbin smoking status NHISNever smoked tobaccoNOMS HealthcareStart: 07-03-2023 End: 06-77-8809Jwosstg use and exposureSmokeless tobacco non-userN[facility]S Healthcare Start: 11-14-2023 End: 75-38-4221Wcjeeem intakeEx-drinker (finding)[facility] HealthcareStart: 08-01-2023 End: 12-44-3458Jbndizs of Social functionNOMS HealthcareStart: 08-01-2023 End: 80-68-8785Hcxqcus use panelNOMS HealthcareStart: 54-57-5016Evomdhw Comment caffeine: 1-2 cups per dayNOWA HealthcareStart: 28-53-6472Bgz Assigned At Not on fileNOMS HealthcareStart: 80-45-9220Hfjrjui smoking status NHISEx-smoker [facility] Work Phone: History of tobacco useCurrent smokerN[facility]S [facility] History of tobacco useCigarette SmokerNOMS HealthcareStart: 08-20-2024 End: 51-37-8388Tyzervcnj beverage intakeCurrent drinker of alcohol (finding)[facility] CenterTobacco smoking status NHISUnknown if ever smokedRiverside Methodist Hospital Work Phone: Start: 12-20-5000GeoZbebnq (finding)[facility] Systemtart: 30-92-6097Yur Assigned At BirthMount Carmel Health Systemtart: 98-81-0481IftDjbkflESBB Healthcare Functional Status FbqdJdypmsjbegVybyynBswtkftz96-56-6087Uirpyfc Health Questionnaire 2 item (PHQ- 2) [Reported][facility] CenterKpfxjmchit98-03-2988Yswrppx Health Questionnaire 2 item (PHQ- 2) [Reported][facility] CenterWmrsmsuxaa61-85-8491Cwbzxio Health Questionnaire 2 item (PHQ- 2) [Reported][facility] CenterGbtdynarwv46-46-9910Egwuslf Health Questionnaire 2 item (PHQ- 2) [Reported][facility] Work Phone: [facility] Clinical Notes 12-29-2023 to 08-12-2025 Note Date & SoswKmfyHxpepuyf02-84-8233 History of Present illness Narrative* Blu Kothari [...] MOUTH EVERY DAY 30 tablet 13 [DISCONTINUED] Richmond-3 Fatty Acids (Fish Oil) 1000 MG capsule [...] cancer Father Past Medical History: Diagnosis Date 'Viktc-aem-rtoge' infant with signs of malnutrition (HHS-HCC) Arthritis Cervical spondylolysis GERD (gastroesophageal reflux disease) Hypertension Shingles Past Surgical History: Procedure Laterality Date APPENDECTOMY EGD 2013 HYSTERECTOMY IR NERVE BLOCK PROCEDURE Bilateral 09/01/2023 L4-S1 RADIOFREQUENCY ABLATION Bilateral 11/10/2023 L4-S1 SHOULDER ARTHROSCOPY W/ ROTATOR CUFF REPAIR Right 10/20/2024 W/ SAD ; STEPANIC TRIGGER FINGER RELEASE Right 2019 RF Visit [...] 11/11/2025) for Test/Lab Review. documented in this encounterSaint Joseph Health CenterXbixwwoquh11-56-2540 History of Present illness Narrative* Blu Kothari [...] 8 Multiple Vitamin (Multivitamin Adult) tablet Daily Richmond-3 Fatty Acids (Fish Oil) 1000 MG capsule [...] cancer Father Past Medical History: Diagnosis Date 'Rpyrw-dbx-alrmx' with signs of malnutrition Arthritis Cervical spondylolysis [...] Greater than 25 minutes was spent in ubpm-nm-pauj consultation and coordination of care. Follow up in about 6 months (around 09/25/2025) for Routine F/U. documented in this encounterSaint Joseph Health CenterItqwpghvlx15-81-9488 History of Present illness Narrative* Blu Kothari [...] 8 Multiple Vitamin (Multivitamin Adult) tablet Daily Richmond-3 Fatty Acids (Fish Oil) 1000 MG capsule [...] cancer Father Past Medical History: Diagnosis Date 'Phriw-fhc-rkrgk' infant with signs of malnutrition Arthritis Cervical [...] 03/28/2025) for Test/Lab Review. documented in this encounterSaint Joseph Health CenterMpodwrxdmv92-29-4834 History of Present illness Narrative* Blu Kothari [...] 8 Multiple Vitamin (Multivitamin Adult) tablet Daily. Richmond-3 Fatty Acids (Fish Oil) 1000 MG capsule [...] cancer Father Past Medical History: Diagnosis Date 'Wpeut-hhp-jenyh' with signs of malnutrition Arthritis Cervical spondylolysis [...] 03/04/2025) for Test/Lab Review. documented in this encounterSaint Joseph Health CenterQknxxkqtvc54-41-5921 History of Present illness Narrative* MARIYA David [...] Referral Reason: Specialty Services Required Referral Location: [facility] Scheduling Requested Specialty: Physical Therapy Number [...] for requiring urgent evaluation. documented in this encounterSaint Joseph Health CenterRjhhhtchet11-35-3091 History of Present illness Narrative* MARIYA David [...] STATES SHE DOES HAVE THERAPY SCHEDULED @ [facility] 12/06/[address] BY THEN OTHERWISE SHE WILL SCHEDULE WITH ZENAIDA AT [facility]. PRESENTS WEARING SLING TODAY, INCORRECTLY. NOTES VERY [...] Referral Reason: Specialty Services Required Referral Location: [place] [facility] Scheduling Requested Specialty: Physical Therapy Number of Visits Requested: 1 ASSESSMENT: ICD-10-CM 1. S/P arthroscopy of right shoulder Z98.890 Ambulatory referral to Physical Therapy S/p rotator cuff repair and SAD Assessment & Plan 1. Post-operative status following right shoulder arthroscopy, rotator cuff repair, and subacromialdecompression. She has expressed a preference for outpatient therapy at [place]. Given her satisfactory passive and active range [...] for requiring urgent evaluation. documented in this encounterSaint Joseph Health CenterMmlzboozey99-78-3088 History of Present illness Narrative* MARIYA David [...] for requiring urgent evaluation. documented in this [facility]12-12-2024 Instructions* Patient Instructions* MARIYA David - 11/04/2024 [...] schedule as soon aspossible documented in this [facility]11-26-2024 Telephone encounter Note* Telephone Encounter - Isabel Leroy NP - 10/19/2024 3:38 PM EST Post op pain rx. PDMP reviewed [facility] CenterUyzugmheok69-98-0585 Miscellaneous Notes* Telephone Encounter - Isabel Leroy NP - 10/19/2024 3:38 PM EST Post op pain rx. PDMP reviewed documented in this encounterSaint Joseph Health CenterFinofsifwl46-38-8096 History of Present illness Narrative* MARIYA David - 09/23/2024 8:30 AM EDT Images from the original note were not included. GENERAL HISTORY AND PHYSICAL: NAME: Miguel Gonzalez : 1955 HISTORY OF PRESENT ILLNESS: Miguel Gonzalez is an 69 y.o. @ female. Here for surgery instructions - (R) SHOULDER SCOPE 10/20/2024 @CALLIE PAST MEDICAL HISTORY: Past Medical History: Diagnosis Date 'Phwao-zhi-ccjvl' with signs of malnutrition Arthritis Cervical spondylolysis [...] food Multiple Vitamin (Multivitamin Adult) tablet Daily Richmond-3 Fatty Acids (Fish Oil) 1000 MG capsule [...] proposed surgeryscheduled. (R) SHOULDER SCOPE 10/20 @CALLIE WALKER INSTRUCTIONS [...] Brace was dispensed to the patient and [employer] Patient Agreement was completed and signed. Warranty informationwas given and explained to the patient with good understanding. Proper care and fitting was also explained to the patient with good understanding. Follow up for 11/04 @1:30pm w/aline in [place]. documented in this encounterSaint Joseph Health CenterOhisfbbene79-68-7374 History of Present illness Narrative* Jr. Son Waite, DO - 09/15/2024 8:15 AM EDT Images from the original note were not included. HISTORY OF PRESENT ILLNESS: EST PT Miguel Gonzalez is an 69 y.o. @ female. (EST PT) RECHECK (R) SHOULDER ; S/P HEP XRAYS, 07/27/24 IN [facility] MRI 08/11/24 IN [facility] NO MDP / PREDNISONE NO [...] food Multiple Vitamin (Multivitamin Adult) tablet Daily Richmond-3 Fatty Acids (Fish Oil) 1000 MG capsule [...] living and we have recommended surgical intervention. oSn Waite D.O. documented in this encounterSaint Joseph Health CenterYvypefthnr53-25-5559 Telephone encounter Note* Telephone Encounter - Tami Tucker - 08/23/2024 9:41 AM EDT Spoke with patient she will see 09/15 for her next scheduled appt. [facility] CenterKirmvuxztb04-87-9553 Miscellaneous Notes* Telephone Encounter - Tami Tucker - 08/23/2024 9:41 AM EDT Spoke with patient she will see 09/15 for her next scheduled appt. * Telephone Encounter - Tami Tucker - 08/23/2024 9:00 AM EDT Patient left requesting to go ahead and schedule her sx. Please advise [phone]. documented in this encounterSaint Joseph Health CenterAvnmtigikp34-89-5930 Telephone encounter Note* Telephone Encounter - Tami Tucker - 08/23/2024 9:00 AM EDT Patient left requesting to go ahead and schedule her sx. Please advise [phone]. [facility] CenterXssqvvhwcy63-43-1580 History of Present illness Narrative* MARIYA Morrison [...] 3 Multiple Vitamin (Multivitamin Adult) tablet Daily. Richmond-3 Fatty Acids (Fish Oil) 1000 MG capsule [...] cancer Father Past Medical History: Diagnosis Date 'Nbiob-dkr-lhcmv' infant with signs of malnutrition Arthritis Cervical spondylolysis GERD (gastroesophageal reflux disease) Hypertension ([facility]/HCC) Shingles Past Surgical History: Procedure Laterality Date [...] you have a medical power of corporate attorney?: Yes Objective : BP 138/86 Pulse [...] shoulder The patient is seeing a medical radiation therapist for this condition, treatment is deferred to that specialist. Correspondence from that specialist and any available testing were reviewed during today's visit. Follow up in about 3 months (around 11/19/2024) for Medication Follow Up. Electronically signed by Alexia Reid PA-C on August 20, 2024 documented in this encounterSaint Joseph Health CenterRcpbrkpsoo71-30-8332 History of Present illness Narrative* Jr. Son Guerrero Jonmilena, DO - 08/13/2024 8:30 AM EDT HISTORY OF PRESENT ILLNESS: EST PT Miguel Gonzalez is an 69 y.o. @ female. (EST PT ; LAST APPT W/ ISABEL) RECHECK (R) SHOULDER ; HERE FOR MRI RESULTS 08/11/24 IN [facility] XRAYS, 07/27/24 IN [facility] MRI 08/11/24 IN [facility] NO MDP / PREDNISONE NO [...] food Multiple Vitamin (Multivitamin Adult) tablet Daily Richmond-3 Fatty Acids (Fish Oil) 1000 MG capsule [...] [place] that [place] and then her is scheduled to consult at [facility] 09[facility]10 ; patient would like to hold [...] scope. Son Waite D.O. documented in this encounterSaint Joseph Health CenterJbmhyacabn83-38-3400 History of Present illness Narrative* Isabel Leroy, COREY - 07/27/2024 9:00 AM EDT Images from [...] MEDICAL HISTORY: Past Medical History: Diagnosis Date 'Uexgj-vnt-aptjy' infant with signs of malnutrition Arthritis Cervical [...] food Multiple Vitamin (Multivitamin Adult) tablet Daily Richmond-3 Fatty Acids (Fish Oil) 1000 MG capsule [...] symptoms develop for requiring urgent evaluation. Isabel Leroy APRN-DEDICATED INTERMODAL TRUCK DRIVER documented in this encounterSaint Joseph Health CenterOmpycxwsya42-72-2008 History of Present illness Narrative* Blu Kothari [...] 3 Multiple Vitamin (Multivitamin Adult) tablet Daily. Richmond-3 Fatty Acids (Fish Oil) 1000 MG capsule [...] cancer Father Past Medical History: Diagnosis Date 'Cgipd-pae-kkxgd' infant with signs of malnutrition Arthritis Cervical [...] for this patient. Elevated LDL cholesterol level ([facility]) Shoulder capsulitis, right - Ambulatory referral to Orthopaedic Surgery; Future Follow up for As Previously Scheduled. documented in this encounterSaint Joseph Health CenterTsubvnaglj61-95-2111 Telephone encounter Note* Telephone Encounter - MARIYA Morrison - 12/29/2023 8:01 AM EST sent [facility] CenterIltadzgrtq84-53-5994 Miscellaneous Notes* Telephone Encounter - MARIYA Morrison - 12/29/2023 8:01 AM EST sent documented in this encounterSaint Joseph Health CenterEvaluation note* Diagnosis Cervical spondylosis without myelopathy- Primary [facility] in this encounter [facility]* Diagnosis Internal derangement of right shoulder- Primary documented in this encounter [facility]* Diagnosis Pre-op examination- Primary documented in this encounter [facility] note* Diagnosis Internal derangement of right shoulder- Primary documented in this encounter [facility]* Diagnosis S/P arthroscopy of right shoulder- Primary documented in this encounter [facility]* Diagnosis Cervical spondylosis without myelopathy- Primary Age-related osteoporosis without current pathological fracture ([facility]) Primary hypertension ([facility]) Unspecified essential hypertension Gastroesophageal reflux disease without esophagitis Esophageal reflux Lumbosacral spondylosis with radiculopathy Elevated LDL cholesterol level ([facility]) Shoulder capsulitis, right documented in this encounter [facility]* Diagnosis Internal derangement of right shoulder- Primary Right shoulder pain, unspecified chronicity documented in this encounter [facility] HealthcareEvaluation note* Diagnosis Internal derangement of right shoulder- Primary documented in this encounter [facility] note* Diagnosis Medicare annual wellness visit, [...] of right shoulder documented in this encounter [facility] HealthcareEvaluation note* Diagnosis S/P arthroscopy of right shoulder- Primary documented in this encounter [facility] HealthcareEvaluation note* Diagnosis S/P arthroscopy of right shoulder- Primary documented in this encounter [facility]* Diagnosis Lumbosacral spondylosis with radiculopathy- Primary Right flank pain, chronic documented in this encounter [facility] note* Diagnosis Lumbosacral spondylosis with radiculopathy- Primary Right flank pain, chronic Other idiopathic scoliosis, thoracolumbar region Lumbar disc narrowing Degeneration of lumbar or lumbosacral intervertebral disc documented in this encounter [facility] HealthcareEvaluation noteNo assessment information availableRiverside Methodist Hospital Work Phone: Evaluation note* Diagnosis Lumbosacral spondylosis with radiculopathy- Primary documented in this encounter [facility] note* Diagnosis Lumbosacral spondylosis with radiculopathy- Primary Primary hypertension Unspecified essential hypertension Cervical spondylosis without myelopathy Elevated LDL cholesterol level documented in this encounter [facility] HealthcareReason for referral (narrative)* Consultation (Routine) - Pending ReviewSpecialtyDiagnoses / ProceduresReferred By ContactReferred To Contact Orthopaedic Surgery Diagnoses Shoulder capsulitis, right Blu Kothari MD [address] [facility] [address] [place] [address] April Mercedes PA [address] [facility] [address] [place] [address] Referral IDStatusReasonStart DateExpiration DateVisits RequestedVisits [id number] Review Specialty Services Required / [facility] Summary Purpose Family History No Family History Records FoundNo Family History Records FoundNo Family History Records FoundNo Family History Records FoundNo Family History Records FoundNo Family History Records Found Advance Directives Advance Directive Response Recorded Date/ Time Advance Directives No March 17, 2 025 3:48pm Reason for Referral SpecialtyDiagnoses / ProceduresReferred By ContactReferred To ContactRadiology Diagnoses Internal derangement of right shoulder Procedures MR shoulder right wo IV contrast Isabel Leroy, QUARANTINE OFFICER [address] [place] [address] [facility] [address] [address] Referral IDStatusReasonStart DateExpiration DateVisits RequestedVisits [id number]/3/20243/ Chief Complaint and Reason for Visit Chief Complaint Admit Date M47.27 M41.25 M51.369 March 18, 2025 1 0:57am Additional Source Comments INFORMATION SOURCE (unrecogn ized section and content) DATE CREATED AUTHOR 12/29/2020 [facility] DATE CREATED AUTHOR AUTHOR'S ORGANIZ ATION 07/09/2021 [facility] DATE CREATED AUTHOR AUTHOR'S ORGANIZ ATION 04/09/2025 [facility] DATE CREATED AUTHOR AUTHOR'S ORGANIZ ATION 08/10/2025 [facility] DATE CREATED AUTHOR AUTHOR'S ORGANIZ ATION 08/13/2025 [facility] DATE CREATED AUTHOR AUTHOR'S ORGANIZ ATION 08/14/2025 [facility] Reason for Visit (unrecogniz ed section and content) ReasonCommentsMed RefillReasonCommentsPainReasonCommentsPainPost-opReason CommentsFollow-upPain medHypertensionShoulder PainMed RefillTramadol--[facility] ReasonCommentsPainReasonOnset XleyOadcdildEpkshnk59/30/2024ReasonCommentsPost-op ReasonCommentsFollow-upPain medHypertensionBack PainReasonCommentsFlank Pain ResultsCt scanReasonCommentsHypertensionMed RefillMobic,crestor,amlodipine-- mail order Care Teams (unrecognized sec tion and content) Team MemberRelationshipSpecialtyStart DateEnd Date Blu Kothari MD [address] [place] [address] PCP - GeneralInternal Medicine04/01/23am MemberRelationshipSpecialtyStart Date End Date Blu Kothari MD [address] [place] [address] PCP - GeneralInternal Medicine04/01/23am MemberRelationshipSpecialtyStart Date End Date Blu Kothari MD [address] [facility] [address] [place] [address] PCP - GeneralInternal Medicine04/01/23am MemberRelationshipSpecialtyStart Date End Date Blu Kothari MD [address] [place] [address] PCP - GeneralInternal Medicine04/01/23am MemberRelationshipSpecialtyStart Date End Date Blu Kothari MD [address] [facility] [address] [place] [address] PCP - GeneralInternal Medicine04/01/23am MemberRelationshipSpecialtyStart Date End Date Blu Kothari MD [address] [place] [address] PCP - GeneralInternal Medicine04/01/23am MemberRelationshipSpecialtyStart Date End Date Blu Kothari MD [address] [place] [address] PCP - GeneralInternal Medicine04/01/23Team MemberRelationshipSpecialtyStart Date End Date Blu Kothari MD [address] [place] [address] PCP - GeneralInternal Medicine04/01/23Team MemberRelationshipSpecialtyStart Date End Date Blu Kothari MD [address] [place] [address] PCP - GeneralInternal Medicine04/01/23Team MemberRelationshipSpecialtyStart Date End Date Blu Kothari MD [address] [place] [address] PCP - GeneralInternal Medicine04/01/23Team MemberRelationshipSpecialtyStart Date End Date Blu Kothari MD [address] [place] [address] PCP - GeneralInternal Medicine04/01/23Team MemberRelationshipSpecialtyStart Date End Date Blu Kothari MD [address] [place] [address] PCP - GeneralInternal Medicine04/01/23Team MemberRelationshipSpecialtyStart Date End Date Blu Kothari MD [address] [place] [address] PCP - GeneralInternal Medicine04/01/23 Blu Kothari MD [address] [place] [address] PCP - ACO [facility]12/31/24Team MemberRelationshipSpecialtyStart DateEnd Blu Kothari MD [address] [place] [address] PCP - GeneralInternal Medicine04/01/23 Blu Kothari MD [address] [place] [address] PCP - ACO [facility]12/31/24Team MemberRelationshipSpecialtyStart DateEnd Date Blu Kothari MD [address] [place] [address] [facility] - [facility]04/01/23 Blu Kothari MD [address] [place] [address] PCP - O [facility]12/31/24Team MemberRelationshipSpecialtyStart DateEnd Date Blu Kothari MD [address] [place] [address] [facility]CP - [facility]04/01/23 Blu Kothari MD [address] [place] [address] [facility]12/31/24Team MemberRelationshipSpecialtyStart DateEnd Date Blu Kothari MD [address] [place] [address] PCP - [facility] Medicine04/01/23 Blu Kothari MD [address] [place] [address] PCP - ACO [facility]12/31/24Team MemberRelationshipSpecialtyStart DateEnd Date Blu Kothari MD [address] [facility] [address] [place] [address] PCP - [facility] Medicine04/01/23 Blu Kothari MD [address] [facility] [address] [place] [address] PCP - [facility]12/31/24 Team Status: Active Member Role Status Dates Blu Kothari II MD Primary Care Provider Active Team Status: Inactive Member Role Status Dates Blu Kothari II MD Primary Care Provid er, Attending Provider Active Start: March 18, 2025 End: March 18, 2025Team MemberRelationshipSpecialtyStart DateEnd Date Blu Kothari MD [address] [facility] [address] [place] [address] PCP - [facility]04/01/23 Blu Kothari MD [address] [facility] [address] [place] [address] PCP - [facility]12/31/24Team MemberRelationshipSpecialtyStart DateEnd Date Blu Kothari MD [address] [facility] [address] [place] [address] PCP - [facility]04/01/23 Blu Kothari MD [address] [facility] [address] [place] [address] PCP - O [facility] Goals (unrecognized section and content) Goals may [...] BE BASED ON THE PRIMARY CLINICAL RECORDS. [facility], [facility]. provides no warranty or guarantee of the accuracy or completeness of information in this document.
== END 2025-11-02 08:15 | disposition home or self-care (01) ==
LOC: PM 08:14
PROVIDERS: PCP Internal Medicine; Visit Provider Nurse Practitioner
DX: M47.816 Spondylosis without myelopathy or radiculopathy, lumbar region (principal)
CPT/HCPCS: G0463

== ENCOUNTER 2025-11-21 09:11 | Outpatient (OUT) | payer OTHER, MEDICARE, SELFPAY ==
--- OUTSIDE RECORDS SUMMARY | 2025-11-11 08:30 | XMS_ITS | Encounter Summary ---
Author Organization [facility] Address [address] [facility] [place] [address] Care Team Providers Care Cable Systems Installer Name Role Phone Blu Kothari MD Primary Care Provider [phone] Reason for Visit * ReasonCommentsFollow-upControlled/pain medHypertensionResultsLabs 07/2025Med RefillTramadol-- carlos garcia Encounter Details DateTypeDepartmentCare Team (Latest Contact Info)Gmhwxfvwyvd61/19/2025 8:30 AM ESTOffice Visit [facility] [address] [facility] [address] [place] [address] Blu Kothari MD [address] [place] [facility] [address] [place], [place] [id number] Primary hypertension (Primary Dx); Lumbosacral spondylosis with radiculopathy; Estrogen deficiency; Encounter for screening mammogram for breast cancer; Elevated LDL cholesterol level Social History Tobacco UseTypesPacks/DayYears UsedDateSmoking Tobacco: FormerCigarettes Smokeless Tobacco: NeverAlcohol UseStandard Drinks/WeekCommentsYes0 (1 standard drink = 0.6 oz pure alcohol)caffeine: 1-2 cups per dayPHQ-2AnswerDate Recorded Patient Health Questionnaire-2 Qjuvi925CommentsUnknownSex and Gender InformationValueDate RecordedSex Assigned at BirthNot on fileLegal Sex Vecgpe8402/05/2023 7:17 PM EDTGender IdentityNot on fileSexual OrientationNot on filedocumented as of this encounter Last Filed Vital Signs Vital SignReadingTime TakenCommentsBlood Araejwdu450/7812/ 8:43 AM EST Chygd926611/11/2025 8:43 AM ESTTemperature--Respiratory Rate--Oxygen Muqbyetacm29% 11/11/2025 8:43 AM ESTInhaled Oxygen Concentration--Taluvc95.2 kg (126 lb) 11/11/2025 8:43 AM AHAYsopcc816.8 cm (4' 9 )11/11/2025 8:43 AM ESTBody Mass Index27.27101/12/2025 8:43 AM ESTdocumented in this encounter Progress Notes * Blu Kothari MD - 11/11/2025 8:30 AM EST Images from the original note were not included. HPI Follow-up Additional comments: Controlled/pain med Results Additional comments: Labs 07/2025 Med Refill Additional comments: [facility]-- [facility] Last edited by Valery Guardado LPN on 11/11/2025 8:47 AM. Subjective Patient ID: Patricia Gonzalez is a 70 y.o. female who presents for Follow-up (Controlled/pain med), Hypertension, Results (Labs 07/2025), and Med Refill (Tr[facility]adol-- [facility] [place]). Hypertension Patient is here for follow-up of elevated blood pressure. She is exercising \Blood pressure is wellcontrolled at home. Cardiac symptoms: none. Patient denies chest pain, claudication, lower extremity edema, near-syncope, orthopnea, palpitations, paroxysmal nocturnal dyspnea, syncope, and tachypnea. Cardiovascular risk factors: advanced age (older than 55 for men, 65 for women) and hypertension. Pt taking pain med as directed working well to control pain Hypertension Pertinent negatives include no chest pain, [...] tablet 3 amLODIPine (Norvasc) 2.5 MG tablet Take 1 tablet (2.5 mg) by mouth Daily 90 tablet 3 aspirin 81 MG EC tablet Take 81 mg by mouth Daily CALCIUM-VITAMIN D PO Take by mouth Daily meloxicam (Mobic) 15 MG tablet Take 1 tablet (15 mg) by mouth Daily 90 tablet 3 Multiple Vitamin (Multivitamin Adult) tablet Daily omeprazole (PriLOSEC) [address] capsule TAKE 1 CAPSULE BY MOUTH EVERY DAY IN THE MORNING before a meal 100 capsule 3 rosuvastatin (Crestor) 10 MG tablet Take 1 tablet (10 mg) by mouth Daily 90 tablet 3 traMADol (Ultram) 50 MG tablet Take 1 tablet (50 mg) by mouth every 6 (six) hours if needed for severe pain 60 tablet 1 No current facility-administered medications on file prior [...] cancer Father Past Medical History: Diagnosis Date 'Etcje-zph-rlsbg' infant with signs of malnutrition (HHS-HCC) Arthritis Cervical spondylolysis GERD (gastroesophageal reflux disease) Hypertension Shingles Past Surgical History: Procedure Laterality Date APPENDECTOMY EGD 2013 HYSTERECTOMY IR NERVE BLOCK PROCEDURE Bilateral 09/01/2023 L4-S1 RADIOFREQUENCY ABLATION Bilateral 11/10/2023 L4-S1 SHOULDER ARTHROSCOPY W/ ROTATOR CUFF REPAIR Right 10/20/2024 W/ SAD ; DR FINNEGAN TRIGGER FINGER RELEASE Right 2019 RF Visit Vitals Ht 4' 9 BMI 26.62 kg/m?? Smoking Status Former BSA 1.5 m?? Review of Systems Respiratory: Negative for shortness of breath. Cardiovascular: Negative for chest pain and palpitations. Objective Physical Exam Constitutional: Appearance: Normal appearance. HENT: Head: Normocephalic and atraumatic. Cardiovascular: Rate and Rhythm: Normal rate and regular rhythm. Heart sounds: Normal heart sounds. No murmur heard. Pulmonary: Effort: Pulmonary effort is normal. Breath sounds: Normal breath sounds. No wheezing, rhonchi or rales. Abdominal: General: Abdomen is flat. Bowel sounds are normal. There is no distension. Tenderness: There is no abdominal tenderness. Musculoskeletal: Right lower leg: No edema. Left lower leg: No edema. Neurological: Mental Status: She is alert. Psychiatric: Mood and Affect: Mood normal. Thought Content: Thought content normal. Office Visit on 08/12/2025 Component Date Value Ref Range Status WHITE BLOOD CELL COUNT 08/12/2025 5.9 3.8 - 10.8 Thousand/uL Final RED BLOOD CELL COUNT 08/12/2025 4.44 3.80 - 5.10 Million/uL Final HEMOGLOBIN 08/12/2025 13.4 11.7 - 15.5 g/dL Final HEMATOCRIT 08/12/2025 43.0 35.0 - 45.0 % Final MCV 08/12/2025 96.8 80.0 - 100.0 fL Final MCH 08/12/2025 30.2 27.0 - 33.0 pg Final MCHC 08/12/2025 31.2 (L) 32.0 - 36.0 g/dL Final Comment: For adults, a slight decrease in the calculated MCHC value (in the range of 30 to 32 g/dL) is most likely not clinically significant; however, it should be interpreted with caution in correlation with other red cell parameters and the patient's clinical condition. RDW 08/12/2025 12.9 11.0 - 15.0 % Final PLATELET COUNT 08/12/2025 308 140 - 400 Thousand/uL Final MPV 08/12/2025 9.8 7.5 - 12.5 fL Final ABSOLUTE NEUTROPHILS 08/12/2025 2,549 1,500 - 7,800 cells/uL Final ABSOLUTE LYMPHOCYTES 08/12/2025 2,301 850 - 3,900 cells/uL Final ABSOLUTE MONOCYTES 08/12/2025 596 200 - 950 cells/uL Final ABSOLUTE EOSINOPHILS 08/12/2025 372 15 - 500 cells/uL Final ABSOLUTE BASOPHILS 08/12/2025 83 0 - 200 cells/uL Final NEUTROPHILS 08/12/2025 43.2 % Final LYMPHOCYTES 08/12/2025 39.0 % Final MONOCYTES 08/12/2025 10.1 % Final EOSINOPHILS 08/12/2025 6.3 % Final BASOPHILS 08/12/2025 1.4 % Final Glucose 08/12/2025 99 65 - 99 mg/dL Final Comment: Fasting reference interval BUN 08/12/2025 12 7 - 25 mg/dL Final Creatinine 08/12/2025 0.52 (L) 0.60 - 1.00 mg/dL Final EGFR 08/12/2025 100 > OR = 60 mL/min/1.73m2 Final BUN/CREATININE RATIO 08/12/2025 23 (H) 6 - 22 (calc) Final Sodium 08/12/2025 143 135 - 146 mmol/L Final Potassium, Bld 08/12/2025 4.3 3.5 - 5.3 mmol/L Final Chloride 08/12/2025 108 98 - 110 mmol/L Final Carbon Dioxide 08/12/2025 27 20 - 32 mmol/L Final Calcium 08/12/2025 10.0 8.6 - 10.4 mg/dL Final PROTEIN, TOTAL 08/12/2025 6.8 6.1 - 8.1 g/dL Final ALBUMIN 08/12/2025 4.3 3.6 - 5.1 g/dL Final GLOBULIN 08/12/2025 2.5 1.9 - 3.7 g/dL (calc) Final ALBUMIN/GLOBULIN RATIO 08/12/2025 1.7 1.0 - 2.5 (calc) Final BILIRUBIN, TOTAL 08/12/2025 0.5 0.2 - 1.2 mg/dL Final ALKALINE PHOSPHATASE 08/12/2025 38 37 - 153 U/L Final AST 08/12/2025 14 10 - 35 U/L Final ALT 08/12/2025 13 6 - 29 U/L Final CHOLESTEROL, TOTAL 08/12/2025 174 <200 mg/dL Final HDL CHOLESTEROL 08/12/2025 86 > OR = 50 mg/dL Final TRIGLYCERIDES 08/12/2025 70 <150 mg/dL Final LDL CHOLESTEROL 08/12/2025 73 mg/dL (calc) Final Comment: Reference range: <100 Desirable range <100 mg/dL for primary prevention; <70 mg/dL for patients with CHD or diabetic patients with > or = 2 CHD risk factors. LDL-C is now calculated using the Brad-Ej calculation, which is a validated novel method providing better accuracy than the Friedewald equation in the estimation of LDL-C. Brad HANKINS et al. MAMIE. 2013;310(19): 4936-0012 (http://education.CrowdBouncer/faq/UVT384) CHOL/HDLC RATIO 08/12/2025 2.0 <5.0 (calc) Final NON HDL CHOLESTEROL 08/12/2025 88 <130 mg/dL (calc) Final Comment: For patients with diabetes plus 1 major ASCVD risk factor, treating to a non-HDL-C goal of <100 mg/dL (LDL-C of <70 mg/dL) is considered a therapeutic option. TSH W/REFLEX TO FT4 08/12/2025 1.58 0.40 - 4.50 mIU/L Final Assessment/Plan Diagnoses and all orders for this visit: Primary hypertension - This patient is on insulin with marked fluctuations of blood sugar and requires a continuous glucose monitor to safely monitor blood sugar levels. Lumbosacral spondylosis with radiculopathy - traMADol (Ultram) 50 MG tablet; Take 1 tablet (50 mg) by mouth every 6 (six) hours if needed for severe pain - Medication choice and dosage is appropriate [...] OARRS Report was reviewed for this patient. Estrogen deficiency - DEXA bone density; Future Encounter for screening mammogram for breast cancer - Bilateral screening mammogram; Future Elevated LDL cholesterol level - Recent lab work for this condition was reviewed and discussed with the patient. Labs are at or near goal, no changes to medication are planned. No follow-ups on file. documented in this encounter Plan of Treatment DateTypeDepartmentCare Team (Latest Contact Info)Fzwynlfrbxh18/03/2026 9:15 AM EDTOffice Visit [facility] [place] [facility] [address] [facility] [address] [place] [address] Blu Kothari MD [address] [facility] [address] [place] [address] NameTypePriorityAssociated DiagnosesOrder ScheduleDEXA bone densityImaging Routine Estrogen deficiency Expected: 11/11/2025 (Approximate), Expires: 11/11/2026ilateral screening mammogramImagingRoutine Encounter for screening mammogram for breast cancer Expected: 11/11/2025 (Approximate), Expires: 01/12/2027documented as of this encounter Visit Diagnoses Diagnosis Primary hypertension- Primary Unspecified essential hypertension Lumbosacral spondylosis with radiculopathy Estrogen deficiency Other ovarian failure Encounter for screening mammogram for breast cancer Elevated LDL cholesterol level documented in this encounter Additional Health Concerns AssessmentNoted TimePHQ-9 Depression Total Score: 8:00 AM EDT documented as of this encounter Care Teams Team MemberRelationshipSpecialtyStart DateEnd Date Blu Kothari MD [address] [address] PCP - GeneralInternal Medicine04/01/23documented as of this encounter
--- OUTSIDE RECORDS SUMMARY | 2025-11-21 09:14 | XMS_ITS | Encounter Summary ---
Author Organization [facility] Address [address] [facility] [place] [address] Care Team Providers Care Lining Cutter Name Role Phone Blu Kothari MD Primary Care Provider [phone] Encounter Details DateTypeDepartmentCare Team (Latest Contact Info)Uvsvkcxvzdx03/19/2025amboo flowsheet [facility] [address] [facility] 110 [place] [address] Blu Kothari MD [address] [place] [address] Social History Tobacco UseTypesPacks/DayYears UsedDateSmoking Tobacco: FormerCigarettes Smokeless Tobacco: NeverAlcohol UseStandard Drinks/WeekCommentsYes0 (1 standard drink = 0.6 oz pure alcohol)caffeine: 1-2 cups per dayPHQ-2AnswerDate Recorded Patient Health Questionnaire-2 Ddlfn503CommentsUnknownSex and Gender InformationValueDate RecordedSex Assigned at BirthNot on fileLegal Sex Ilefod8102/05/2023 7:17 PM EDTGender IdentityNot on fileSexual OrientationNot on filedocumented as of this encounter Plan of Treatment DateTypeDepartmentCare Team (Latest Contact Info)Ofkxazeoimt08/03/2026 9:15 AM EDTOffice Visit [facility] [address] [place] [address] Blu Kothari MD [address] [facility] 110 [place] [address] documented as of this encounter Visit Diagnoses Not on filedocumented in this encounter Additional Health Concerns AssessmentNoted TimePHQ-9 Depression Total Score: 8:00 AM EDT documented as of this encounter Care Teams Team MemberRelationshipSpecialtyStart DateEnd Date Blu Kothari MD 112 [facility] 110 [place] [address] PCP - GeneralInternal Medicine04/01/23documented as of this encounter
--- OUTSIDE RECORDS SUMMARY | 2025-11-21 09:14 | XMS_ITS | Encounter Summary ---
Author Organization [facility] Address [address] [facility] [place] [address] Care Team Providers Care Skin Diver Name Role Phone Blu Kothari MD Primary Care Provider [phone] Encounter Details DateTypeDepartmentCare Team (Latest Contact Info)Srcsrcbvril49/19/2025Travel Social History Tobacco UseTypesPacks/DayYears UsedDateSmoking Tobacco: FormerCigarettes Smokeless Tobacco: NeverAlcohol UseStandard Drinks/WeekCommentsYes0 (1 standard drink = 0.6 oz pure alcohol)caffeine: 1-2 cups per dayPHQ-2AnswerDate Recorded Patient Health Questionnaire-2 Dwpbd058CommentsUnknownSex and Gender InformationValueDate RecordedSex Assigned at BirthNot on fileLegal Sex Lkvkkp2002/05/2023 7:17 PM EDTGender IdentityNot on fileSexual OrientationNot on filedocumented as of this encounter Plan of Treatment DateTypeDepartmentCare Team (Latest Contact Info)Jeirxpompva96/03/2026 9:15 AM EDTOffice Visit [facility] [place] [facility] [address] [place] [address] Blu Kothari MD [address] [place], [place] [address] documented as of this encounter Visit Diagnoses Not on filedocumented in this encounter Additional Health Concerns AssessmentNoted TimePHQ-9 Depression Total Score: 8:00 AM EDT documented as of this encounter Care Teams Team MemberRelationshipSpecialtyStart DateEnd Date Blu Kothari MD 112 [facility] 110 [place] [address] PCP - GeneralInternal Medicine04/01/23documented as of this encounter
--- OUTSIDE RECORDS SUMMARY | 2025-11-21 09:14 | XMS_ITS | Clinical Summary ---
Author Organization [facility] Address [id number] [address] [place] [address] Care Team Providers Care Assistant Director Of Nursing Name Role Phone Blu Kothari MD Primary Care Provider [phone] Allergies No known active allergies Medications MedicationSigDispense [...] tablet Take 400 Units by mouth daily.Active qlcoduaq-hpxm-AJ-calcium &mins (THERAGRAN-M) 9 mg iron-400 mcg tablet Take 1 tablet by mouth daily.Active omega 9-nkk-gox-fish oil (FISH OIL) 300-1,000 mg capsule Take by mouth.Active aspirin 81 mg Take 81 mg by mouth daily.Active Social History Tobacco UseTypesPacks/DayYears UsedDateSmoking Tobacco: FormerSmokeless Tobacco: NeverAlcohol UseStandard Drinks/WeekCommentsYes0 (1 standard drink = 0.6 oz pure alcohol)occasionalPHQ-2AnswerDate RecordedTotal Baniv196ChildcareAnswer Date EnhepkxmTszgjsufwDwdpfws92/12/2019EmploymentAnswerDate RecordedEmployment Xtiuepa7505/05/2019Purpose - LifeAnswerDate RecordedPurpose and direction in life Yxznlhu34/11/2021CommentsNoSex and Gender InformationValueDate Recorded Sex Assigned at BirthNot on fileLegal CizFmrwvv30/06/2015 12:12 PM EDTGender IdentityNot on fileSexual OrientationNot on file Last Filed Vital Signs Vital SignReadingTime TakenCommentsBlood Uzekfupa673/9507 2:45 PM EDT Xfyws816406/14/2020 2:45 PM CPTGpjdfnhjqfr45.8 ??C (98.2 ??F)06/14/2020 12:41 PM EDTRespiratory Ltps088606/14/2020 12:41 PM EDTOxygen Nnpcdooofr08%06/14/2020 2:45 PM EDTInhaled Oxygen Concentration--Tmkkjo63.6 kg (116 lb)06/09/2020 1:35 PM EDT Bikeov257.2 cm (4' 8 )06/09/2020 1:35 PM EDTBody Mass Index26.01006/09/2020 1:35 PM EDT Plan of Treatment Health MaintenanceDue DateLast DoneCommentsDepression Hkevhevjr05/20/1967Tobacco Azqrywrfv13/20/1967Adult BMI Xlkvnnmgv53/20/1973DTaP,Tdap and Td Vaccines (1 - Tdap)1974Zoster (Shingles) Vaccine (1 of 2)2005Fall Risk Screening 2020Influenza Igsajph0107/25/2025RSV ( or age 60+ yrs) (1 - 1-dose 75+ series)2030 Medical Devices Not on file Insurance Care Teams Team MemberRelationshipSpecialtyStart DateEnd Date Blu Kothari MD [address] [facility] [address] [place] [address] PCP - GeneralInternal Medicine06/09/20
--- OUTSIDE RECORDS SUMMARY | 2025-11-21 09:14 | XMS_ITS | Clinical Summary ---
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 Name Role Phone Blu Kothari MD Primary Care Provider [phone] Allergies Active AllergyReactionsCriticalityNoted DateCommentsAce InhibitorsCough 07/03/2023 Medications MedicationSigDispense QuantityRefillsLast FilledStart DateEnd DateStatus Multiple Vitamin (Multivitamin Adult) tablet DailyActive CALCIUM-VITAMIN D PO Take by mouth DailyActive aspirin 81 MG EC tablet Take 81 mg by mouth DailyActive omeprazole (PriLOSEC) [address] capsule Indications:Gastroesophageal reflux disease without esophagitisTAKE 1 CAPSULE BY MOUTH EVERY DAY IN THE MORNING before a meal 100 capsule 5Active amLODIPine (Norvasc) 2.5 MG tablet Indications:Primary hypertensionTake 1 tablet (2.5 mg) by mouth Daily 90 tablet 509/ctive meloxicam (Mobic) 15 MG tablet Indications:Cervical spondylosis without myelopathyTake 1 tablet (15 mg) by mouth Daily 90 tablet 5008/12/2026ctive rosuvastatin (Crestor) 10 MG tablet Indications:Primary hypertensionTake 1 tablet (10 mg) by mouth Daily 90 tablet 509/6Active alendronate (Fosamax) 70 MG tablet Indications:Age-related osteoporosis without current pathological fractureTake 1 tablet (70 mg) by mouth every 7 (seven) days Take in the morning with a full glass of water,on an empty stomach, and do not take anything else by mouth or lie down for the next 30 min. 12 tablet 5Active traMADol (Ultram) 50 MG tablet Indications:Lumbosacral spondylosis with radiculopathyTake 1 tablet (50 mg) by mouth every 6 (six) hours if needed for severe pain 60 tablet tive traMADol (Ultram) 50 MG tablet Indications:Lumbosacral spondylosis with radiculopathyTake 1 tablet (50 mg) by mouth every 6 (six) hours if needed for severe pain 60 tablet Discontinued(Reorder) Active Problems ProblemNoted DateDiagnosed DateAge-related osteoporosis without current pathological oqwfvenj95/05/2024ervical spondylosis without tuwnpmudiz86/10/2023 Elevated LDL cholesterol level07/03/2023astroesophageal reflux disease without qaydagsdpzd06/10/2023History of yxjffvoqbeni60/10/3357Fgazutagbbnhl91/10/2023 Auxruxupfcps49/10/5150Lnnpmrzw78/10/2023Lumbar paraspinal muscle spasm07/03/2023 Lumbosacral spondylosis with duyawupukxcot66/10/2023Overweight (BMI 25.0-29.9) 07/03/2023ost herpetic tipcmerlp58/10/2023 Encounters DateTypeDepartmentCare KcudUzoacjeviaa89/19/2025 8:30 AM ESTOffice Visit [facility] [address] [facility] [address] [place] [phone] Blu Kothari MD Primary hypertension (Primary Dx); Lumbosacral spondylosis with radiculopathy; Estrogen deficiency; Encounter for screening mammogram for breast cancer; Elevated LDL cholesterol level11/11/2025amboo flowsheet [facility] [address] [facility] [address] [place] [address] Blu Kothari MD 11/11/20251328Zaorsn91/01/2025bstract [facility] [address] [facility] [address] [place] [address] Blu Kothari MD 09/22/2025Refill [facility] [address] [facility] [address] [place] [phone] Celia Messina MA Age-related osteoporosis without current pathological upofiuph27/29/2025Refill [facility] [address] [facility] [address] [place] [address] Valery Guardado LPN Age-related osteoporosis without current pathological fracturefrom Last 3 Months Immunizations ImmunizationAdministration DatesNext DueInfluenza, High Dose Seasonal, Preservative Free08/12/2025,10/03/2024Influenza, High-dose Seasonal, Quadrivalent, Preservative Free11/10/2022,09/04/2021,08/17/2020Influenza, Seasonal, Quadrivalent, Mhzhtzubxa36/14/2023Pneumococcal Conjugate PCV 20 4Pneumococcal Polysaccharide WLDN2090Tdap04/05/2021Zoster, Jewyjglkbmk99/09/2022,11/30/2021 Family History Medical HistoryRelationNameCommentsDiabetesFatherHeart diseaseFatherStomach cancerFatherDementiaMotherRelationNameStatusCommentsFatherDeceasedMotherDeceased Social History Tobacco UseTypesPacks/DayYears UsedDateSmoking Tobacco: FormerCigarettes Smokeless Tobacco: Never Tobacco Cessation:Counseling Given: Yes Alcohol UseStandard Drinks/WeekCommentsYes0 (1 standard drink = 0.6 oz pure alcohol)caffeine: 1-2 cups per dayPHQ-2AnswerDate RecordedPatient Health Questionnaire-2 Uayyi907CommentsUnknownSex and Gender InformationValueDate RecordedSex Assigned at BirthNot on fileLegal SexFemale 02/05/2023 7:17 PM EDTGender IdentityNot on fileSexual OrientationNot on file Last Filed Vital Signs Vital SignReadingTime TakenCommentsBlood Wrqtckrz096/7811/11/2025 8:43 AM EST Snorv808111/11/2025 8:43 AM VDPRrniomnstjn45.9 ??C (98.5 ??F)02/18/2024 10:32 AM EDTRespiratory Nnuo518503/25/2025 8:54 AM EDTOxygen Fpjqsxafml01%11/11/2025 8:43 AM ESTInhaled Oxygen Concentration--Atndoe10.2 kg (126 lb)11/11/2025 8:43 AM EST Kmpqlx931.8 cm (4' 9 )11/11/2025 8:43 AM ESTBody Mass Index27.27101/12/2025 8:43 AM EST Plan of Treatment DateTypeDepartmentCare Team (Latest Contact Info)Cgtazdjjxhn85/03/2026 9:15 AM EDTOffice Visit [facility] [facility] [address] [facility] [address] [place] [address] Blu Kothari MD [address] [facility] [address] [place] [address] Health MaintenanceDue DateLast DoneCommentsCT Lglopzblkhol1955Colonoscopy 1955FIT1955FOBT1955 4654Antfreqxaeyrr73/20/6120Zeicdjuau23/20/1995 Colorectal Cancer Uhctppbwg29/24/2026FIT-DNA, 05/30/2020, 05/30/2020, Additional history existsPneumococcal Vaccine: 65+ YearsCompleted 10/10/2024, 06/20/2021Influenza DmrpkgaQkhbozkjr35/19/2025, 10/03/2024, 08/07/2023, Additional history exists Procedures Procedure NamePriorityDate/TimeAssociated DiagnosisCommentsLAB COLOGUARD?? COLON CANCER ABTRRXXsbxnca60/24/2023 7:30 PM EDT Screening for colorectal cancer from Last 3 Months or Most Recently Relevant to Health Maintenance Results * Cologuard?? colon cancer screening (07/17/2023 7:30 PM EDT)ComponentValueRef RangeTest MethodAnalysis TimePerformed AtPathologist SignatureNONINV COLON CA DNA+OCC BLD SCRN STL-JHYIjsyjsggJbxbfyta90/01/2023 6:26 PM EDTEXMedisyn Technologies (CLIA #:[id number])Comment: NEGATIVE TEST RESULT. A negative Cologuard result [...] Puentes et al, N Engl J Med 2014;370(14):8675-6973) The normal value (reference range) for this assay is negative. COLOGUARD RE-SCREENING RECOMMENDATION: Periodic colorectal cancer screening is an important part ofpreventive healthcare for asymptomatic individuals at average risk for colorectal cancer. ??Following a negative Cologuard result, the [place] [employer] and U.S. Multi-Society Task Force screening guidelines recommend a Cologuard re-screening interval of 3 years. References: [place] [employer] Guideline for Colorectal Cancer Screening: https://www.cancer.or g/cancer/sbnfn-kwswek-mhazcu/cpgvstunk-tctyhkvqx-mjatngq/acs-recommendations.htm bharathi.; Ez BUSTAMANTE, Marla PORTILLO, Jessica HameedK, Colorectal Cancer Screening: Recommendations for Physicians and Patients from the U.S. Multi-Society Task Force on Colorectal Cancer Screening , Am J Gastroenterology 2017; 112:2659-1966. TEST DESCRIPTION: Composite algorithmic analysis of stool [...] (Jo-Ann Jasso al, N Engl J Med 2014;370(14):8113-2079.) Cologuard may produce a false negative or false positive result (no colorectal cancer or precancerous polyp present at colonoscopy follow up). A negative Cologuard test result does not guarantee the absence of CRC or advanced adenoma (pre-cancer). The current Cologuard screening interval is every 3 years. ([place] [employer] and U.S. Multi-Society Task Force). Cologuard performance data in a 10,000 patient pivotal study using colonoscopy as the reference method can be accessed at the following location: www.[employer]/results. Additional description of the Cologuard test process, warnings and precautions can be found at www.cologuard.com. Specimen (Source)Anatomical Location / LateralityCollection Method / Volume Collection TimeReceived TimeStool specimen (specimen)07/17/2023 7:30 PM EDT 07/19/2023 4:57 PM EDT Narrative Authorizing ProviderResult TypeResult StatusDaniaurora Z[facility] ORDERABLESFinal ResultPerforming OrganizationAddressCity/State/ZIP CodePhone Number .XABuildZoom (CLIA #:[id number]) [address] [address] [phone] SocialProof (CLIA #:[id number]) [address] [phone] from Last 3 Months or Most Recently Relevant to Health Maintenance Insurance Care Teams Team MemberRelationshipSpecialtyStart DateEnd Date Blu Kothari MD [address] [facility] [address] [place] [address] PCP - GeneralInternal Medicine04/01/23
--- OUTSIDE RECORDS SUMMARY | 2025-11-21 09:18 | XMS_ITS | CCD ---
Author Organization [facility] Care Team Providers Care Sound Engineering Technician Name Role Phone BLU KOTHARI Attending BLU Champagne Consulting BLU Champagne Primary Care Unavailable BLU KOTHARI Admitting Blu Champagne MD Primary Care Provider [phone] Blu Kothari MD Unavailable Blu Kothari II Primary Care Provider Blu Kothari II Attending Provider Blu Kothari Attending Unavailable Blu Kothari Primary Care Unavailable Blu Kothari Admitting Unavailable Jeanne RIVERA, Bouchra Giordano Attending Unavailable Jeanne RIVERA, Bouchra Giordano Attending Unavailable Jeanne RIVERA, Bouchra Giordano Attending Unavailable Jaenne RIVERA, Bouchra Giordano Attending Unavailable APRIL MERCEDES Attending Unavailable BLU KOTHARI Attending Unavailable BLU KOTAHRI Referring Unavailable BLU KOTHARI Attending Unavailable BLU KOTHARI Attending Unavailable BLU KOTHARI Attending Unavailable ALEXIA REID Attending Unavailable JR. WAITE GEORGE C Attending UnavailAPRIL James Attending Unavailable APRIL MERCEDES Attending Unavailable APRIL MERCEDES Attending Unavailable Blu Kothari MD Unavailable Allergies Allergy ClassificationReported Allergen(s)Allergy TypeDate of OnsetReaction(s) Facility (20 sources)Angiotensin-converting enzyme inhibitor agentDrug Ctjwqof09-19-2323 [facility] Medications Current Medications MedicationDrug Class(es)DatesSig (Normalized)Sig (Original)acetaminophen 325 mg / oxyCODONE hydrochloride 5 mg oral tablet (3 sources)Opioid AgonistStart: 11-04-2024 End: 75-68-7128popi 1 tablet by mouth every six hours for painoxyCODONE- acetaminophen (Percocet) 5-325 MG tablet Indications: S/P arthroscopy of right shoulder Take 1 tablet by mouth every 6 (six) hours if needed for severe pain for up to 5 days 20 tablet 11/04/2024 11/09/2024 ActiveStart: 10-19-2024 End: 58-73-8035fbgp 1 tablet by mouth every six hours for painoxyCODONE- acetaminophen (Percocet) 5-325 MG tablet Indications: Internal derangement of right shoulder Take 1 tablet by mouth every 6 (six) hours if needed for moderate pain for up to 5 days 20 tablet 10/19/2024 10/24/2024 Activealendronic acid 70 mg oral tablet (20 sources)BisphosphonateStart: 02-02-2024 End: 00-26-9507ieasmkbvcmi (Fosamax) 70 MG tablet Indications: Age-related osteoporosis without current pathological fracture TAKE 1 TABLET EVERY 7 DAYS IN THE MORNING WITH A FULL GLASS OF WATER, ON AN EMPTY STOMACH, AND DO NOT TAKE ANYTHING ELSE OR LIE DOWN FOR THE NEXT 30 MINUTES 4 tablet 11 11/29/2024 Active amLODIPine 2.5 mg oral tablet (20 sources)Dihydropyridine Calcium Channel BlockerStart: 03-21-2025 End: 17-91-4260qsrx 1 tablet by mouth once dailyamLODIPine (Norvasc) 2.5 MG tablet Indications: Primary hypertension Take 1 tablet (2.5 mg) by mouth Daily 90 tablet 3 08/12/2025 08/12/2026 ActiveStart: 39-52-3507svox 1 tablet by mouth once dailyamLODIPine (Norvasc) [...] tablet (20 sources)Nonsteroidal Anti-inflammatory DrugStart: 01-21-2025 End: 61-24-6806vkuc 1 tablet by mouth once dailymeloxicam (Mobic) 15 MG tablet Indications: Cervical spondylosis without myelopathy Take 1 tablet (15 mg) by mouth Daily 90 tablet 3 08/12/2025 08/12/2026 ActiveStart: 12-29-2023 End: 01-24-5531lpqa 1 tablet by mouth at mealtimemeloxicam (Mobic) 15 MG tablet Indications: Cervical spondylosis without myelopathy Take 1 tablet (15 mg) by mouth in the morning. Take with food. 100 tablet 3 12/29/2023 ActiveOmega-3 Fatty Acids (Fish Oil) 1000 MG capsule delayed-release (20 sources) End: 90-83-8106Jonmy-3 Fatty Acids (Fish Oil) 1000 MG capsule [...] release oral capsule (20 sources)Proton Pump InhibitorStart: 98-83-7314xtzt 1 capsule by mouth once daily before mealtimeomeprazole (PriLOSEC) [address] capsule Indications: Gastroesophageal reflux disease without esophagitis TAKE 1 CAPSULE BY MOUTH EVERY DAY IN THE MORNING before a meal 100 capsule 3 03/14/2025 ActiveStart: 18-61-4580vivl 1 capsule by mouth before mealtimeomeprazole (PriLOSEC) [...] tablet (20 sources)HMG-CoA Reductase InhibitorStart: 12-02-2023 End: 78-84-4062sper 1 tablet by mouth once dailyrosuvastatin (Crestor) 10 MG tablet Indications: Primary hypertension Take 1 tablet (10 mg) by mouth Daily 90 tablet 3 08/12/2025 08/12/2026 ActivetraMADol hydrochloride 50 mg oral tablet (20 sources)Opioid AgonistStart: 12-22-2023 End: 81-38-7087ltrt 1 tablet by mouth every six hours for paintraMADol (Ultram) 50 MG tablet Indications: Lumbosacral spondylosis with radiculopathy Take 1 tablet (50 mg) by mouth every 6 (six) hours if needed for severe pain 60 tablet 1 02/18/2025 Activevitamin b12 1 mg oral tablet (20 sources)Vitamin B12 End: 65-39-8555cals 1 tablet by mouth once dailycyanocobalamin (Vitamin B-12) 1000 MCG tablet Take 1,000 mcg by mouth Daily 08/12/2025 Discontinuedzinc gluconate 50 mg oral tablet (20 sources) End: 76-90-2625pvpp gluconate 50 MG tablet Take 25 mg by mouth in the morning. 08/12/2025 Discontinued Completed/Discontinued Medications MedicationDrug Class(es)DatesSig (Normalized)Sig (Original)magnesium oxide 400 mg oral tablet (4 sources) End: 54-58-2884gdpn 1 tablet by mouth in the morningmagnesium oxide (Mag-Ox) 400 mg tablet Take 400 mg by mouth in the morning and 400 mg before bedtime. 07/21/2024 DiscontinuedtiZANidine 2 mg oral tablet (3 sources)Central alpha-2 Adrenergic AgonistStart: 12-11-2023 End: 28-89-1034cira 1 tablet by mouth twice daily as neededtiZANidine (Zanaflex) 2 MG tablet TAKE 1 TO 2 TABLETS BY MOUTH TWICE A DAY NEEDED FOR SPASM 12/1107/21/2024 Discontinued Problems Active Problems Problem ClassificationProblemDateDocumented DateEpisodic/ChronicAbdominal pain (6 sources)Right flank pain; Translations: [Unspecified abdominal pain] 87-31-2522PlmmpkaxYwxglmidbpfvzd/social admission (2 sources)Patient encounter status; Translations: [Other specified counseling] 63-97-4737KmhlvadyEdxumbynu of lipid metabolism (20 sources)Raised low density lipoprotein cholesterol; Translations: [Pure hypercholesterolemia, unspecified]Onset: 591885-65-7725TemuvprFfhgekkkly disorders (20 sources)Gastroesophageal reflux disease without esophagitis; Translations: [Gastro-esophageal reflux disease without esophagitis]Onset: 07-03-2023 74-94-3915RpqebmfEiktdpdif hypertension (20 sources)Hypertensive disorder; Translations: [Essential (primary) hypertension]Onset: 015065-41-0525MrqpkewHdfhxywc; including migraine (1 source)Headache; including migraine; Translations: [HEADACHE UNSPECIFIED] Onset: 29-92-2503Jyosxjnzhfzxi mental health disorders (2 sources)Primary insomnia; Translations: [Primary insomnia]87-01-2544Gawoavn Osteoporosis (20 sources)Senile osteoporosis; Translations: [Age-related osteoporosis without current pathological fracture]Onset: 224064-31-2438LzhwdyeXdmlz bone disease and musculoskeletal deformities (4 sources)Idiopathic scoliosis of thoracic and lumbar spine; Translations: [Other idiopathic scoliosis, thoracolumbar region]11-51-0521MvngicsMviru lower respiratory disease (1 source)Cough; Translations: [COUGH]Onset: 31-22-5449SpvokogqKsgzb non- traumatic joint disorders (8 sources)Derangement of right shoulder joint; Translations: [Other specific joint derangements of right shoulder, not elsewhere classified]64-63-3096Gzoebxt Other nutritional; endocrine; and metabolic disorders (20 sources)Hypercalcemia; Translations: [Hypercalcemia]Onset: 07-03-2023 57-95-0439EdnuzqwQbmtkwfz codes; unclassified (12 sources)History of arthroscopic procedure on shoulder; Translations: [Other specified postprocedural states]25-18-0343NevmpxdiDmwehmpp codes; unclassified (2 sources)Other problems related to lifestyle; Translations: [Other problems related to lifestyle]62-99-3105ZulecawzOjjukdxjpah; intervertebral disc disorders; other back problems (20 sources)Cervical spondylosis without myelopathy; Translations: [Spondylosis without myelopathy or radiculopathy, cervical region]Onset: 655786-84-9856 ChronicUnclassified (4 sources)CONTACT W/AND (SUSP) EXPOS COVID-19; Translations: [CONTACT W/AND (SUSP) EXPOS COVID-19]Onset: 12-21-2020 Past or Other Problems Problem ClassificationProblemDateDocumented DateEpisodic/ChronicMood disorders (20 sources)Mood disordersOnset: 473675-51-9125Uycbf connective tissue disease (2 sources)Capsulitis; Translations: [Other enthesopathies, not elsewhere classified]78-78-2756IxitfubvCtkml non-traumatic joint disorders (2 sources)Pain in right shoulder; Translations: [Pain in joint, shoulder region]12-63-2408GdsipvkiGjovu nutritional; endocrine; and metabolic disorders (20 sources)Body mass index 25-29 - overweight; Translations: [Overweight]Onset: 674977-16-1095FpqqvgmvVyskztbp codes; unclassified (20 sources)Insomnia; Translations: [Insomnia, unspecified]Onset: 07-03-2023 08-05-1511GvryqvjrKfzvhiqtohf; intervertebral disc disorders; other back problems (20 sources)Spasm of muscle of lower back; Translations: [Muscle spasm of back] Onset: 795218-79-7981JusekrrjRaqii infection (20 sources)Postherpetic neuralgia; Translations: [Other postherpetic nervous system involvement]Onset: 357925-08-9425Tvpbnmrj Results Test NameValueInterpretationReference RangeFacilityCBC (INCLUDES DIFF/PLT)on 54-23-5523Qtkcsensa (Bld) [#/Vol]0.083 10*3/uLNormal0-200[facility] Comment on above:Performed By: #### 8313, 1110, 25679 #### [facility] [address], [address] [place] [address] Electrical Machinist: Truman Liao MDBasophils/100 WBC (Bld)1.4 %NormalQuest DiagnosticsComment on above:Performed By: #### 6399, 7600, 39954 #### [facility] of [address], [address] [place] [address] Electrical Machinist: Truman Liao MDEosinophils (Bld) [#/Vol]0.372 10*3/uLNormal 15-500Quest DiagnosticsComment on above:Performed By: #### 6399, 7600, 65413 #### [facility] of [address], [address] [place] [address] Electrical Machinist: Truman SCRUGGSosinophils/100 WBC (Bld)6.3 %NormalQuest DiagnosticsComment on above:Performed By: #### 6399, 7600, 64607 #### [facility] [address], [address] [place] [address] Electrical Machinist: Truman Liao MDErythrocyte distribution width (RBC) [Ratio] 12.9 %Yyttqn64.0-15.0Quest DiagnosticsComment on above:Performed By: #### 6399, 7600, 42673 #### [facility] [place] [address] Electrical Machinist: Truman Liao MDHematocrit (Bld) [Volume fraction]43.0 %Normal 35.0-45.0[facility] DiagnosticsComment on above:Performed By: #### 6399, 7600, 81321 #### [facility] of [place] [address] Electrical Machinist: Truman Liao MDHemoglobin (Bld) [Mass/Vol]13.4 g/dLNormal 11.7-15.5Quest DiagnosticsComment on above:Performed By: #### 6399, 7600, 48372 #### [facility] of [address], [address] [place] [address] Electrical Machinist: Truman Liao MDLymphocytes (Bld) [#/Vol]2.301 10*3/uLNormal 850-3900Quest DiagnosticsComment on above:Performed By: #### 6399, 7600, 00117 #### [facility] of [place] [address] Electrical Machinist: Truman Liao MDLymphocytes/100 WBC (Bld)39.0 %NormalQuest DiagnosticsComment on above:Performed By: #### 6399, 7600, 67061 #### [facility] of [place] [address] Electrical Machinist: Truman Liao MDMCH (RBC) [Entitic mass]30.2 huViuguh04.0-33.0 [facility]osticsComment on above:Performed By: #### 6399, 7600, 02603 #### [facility] [place] [address] Electrical Machinist: Truman MAURICIOCHC (RBC) [Mass/Vol]31.2 g/dLLow32.0-36.0 [facility]osticsComment on above:Result Comment: For adults, a slight decrease in the calculated MCHC value (in the range of 30 to 32 g/dL) is most likely not clinically significant; however, it should be interpreted with caution in correlation with other red cell parameters and the patient's clinical condition.Performed By: #### 6399, 7600, 32732 #### [facility] of [place] [address] Electrical Machinist: Truman Liao MDMCV (RBC) [Entitic vol]96.8 wCQioucv18.0-100.0 [facility]osticsComment on above:Performed By: #### 6399, 7600, 70800 #### [facility] of [place] [address] Electrical Machinist: Truman Liao MDMonocytes (Bld) [#/Vol]0.596 10*3/uLNormal 200-950Quest DiagnosticsComment on above:Performed By: #### 6399, 7600, 04000 #### [facility] of [address], [address] [place] [address] Electrical Machinist: Truman Liao MDMonocytes/100 WBC (Bld)10.1 %NormalQuest DiagnosticsComment on above:Performed By: #### 6399, 7600, 70633 #### [facility] of [address], [address] [place] [address] Electrical Machinist: Truman Liao MDNeutrophils (Bld) [#/Vol]2.549 10*3/uLNormal 1500-7800Quest DiagnosticsComment on above:Performed By: #### 6399, 7600, 69639 #### [facility] of [address], [address] [place] [address] Electrical Machinist: Truman Liao MDNeutrophils/100 WBC (Bld)43.2 %NormalQuest DiagnosticsComment on above:Performed By: #### 6399, 7600, 70193 #### [facility] of [address], [address] [place] [address] Electrical Machinist: Truman Liao MDPlatelet mean volume (Bld) [Entitic vol]9.8 fL Normal7.5-12.5Quest DiagnosticsComment on above:Performed By: #### 6399, 7600, 95265 #### [facility] of [address], [address] [place] [address] Electrical Machinist: Truman Liao MDPlatelets (Bld) [#/Vol]308 10*3/uLNormal 140-400Quest DiagnosticsComment on above:Performed By: #### 6399, 7600, 94547 #### [facility] of [address], [address] [place] [address] Electrical Machinist: Truman Liao MDRBC (Bld) [#/Vol]4.44 10*6/uLNormal3.80-5.10 [facility]osticsComment on above:Performed By: #### 6399, 7600, 40102 #### [facility] of [address], [address] [place] [address] Electrical Machinist: Truman Liao MDWBC ([facility]) [#/Vol]5.9 10*3/uLNormal3.8-10.8 [facility]osticsComment on above:Performed By: #### 6399, 7600, 36855 #### [facility] of [address], [address] [place] [address] Electrical Machinist: Truman Liao [facility] ASSOCIATIONOMPREHENSIVE METABOLIC PANELon 08-13-2025 Albumin [Mass/Vol]4.3 g/dLNormal3.6-5.1Quest DiagnosticsComment on above: Performed By: #### 6399, 7600, 07201 #### [facility] of [place] [address] Electrical Machinist: Truman Liao MDAlbumin/Globulin [Mass ratio]1.7 {ratio}Normal 1.0-2.5Quest DiagnosticsComment on above:Performed By: #### 6399, 7600, 66488 #### [facility] of [place] [address] Electrical Machinist: Truman Liao MDALP [Catalytic activity/Vol]38 U/NMsuqsj43-028 [facility]osticsComment on above:Performed By: #### 6399, 7600, 23929 #### [facility] of [place] [address] Electrical Machinist: Truman Liao MDALT [Catalytic activity/Vol]13 U/LNormal6-29 [facility]osticsComment on above:Performed By: #### 6399, 7600, 47795 #### [facility] of [place] [address] Electrical Machinist: Truman Liao MDAST [Catalytic activity/Vol]14 U/WIwcsxy91-19 [facility]osticsComment on above:Performed By: #### 6399, 7600, 24693 #### [facility] of [address], [address] [place] [address] Electrical Machinist: Truman Liao MDBilirubin [Mass/Vol]0.5 mg/dLNormal0.2-1.2 [facility]osticsComment on above:Performed By: #### 6399, 7600, 36400 #### [facility] of [address], [address] [place] [address] Electrical Machinist: Truman Liao MDCalcium [Mass/Vol]10.0 mg/dLNormal8.6-10.4 [facility]osticsComment on above:Performed By: #### 6399, 7600, 59770 #### [facility] of [address], [address] [place] [address] Electrical Machinist: Truman Liao MDChloride [Moles/Vol]108 mmol/YFwyfkf03-804 [facility]osticsComment on above:Performed By: #### 6399, 7600, 78233 #### [facility] of [place] [address] Electrical Machinist: Truman Liao MDCO2 [Moles/Vol]27 mmol/CHegbjt47-64Vxfjc DiagnosticsComment on above:Performed By: #### 6399, 7600, 94844 #### [facility] [place] [address] Electrical Machinist: Truman ABDIreatinine [Mass/Vol]0.52 mg/dLLow0.60-1.00 [facility]osticsComment on above:Performed By: #### 6399, 7600, 39284 #### [facility] of [place] [address] Electrical Machinist: Truman Liao MDGFR/1.73 sq M.predicted among non-blacks MDRD (S/P/Bld) [Vol rate/Area]100 mL/min/{1.73_m2}Normal> OR = 60[facility] Comment on above:Performed By: #### 6399, 7600, 21456 #### [facility] of [place] [address] Electrical Machinist: Truman Liao MDGlobulin (S) [Mass/Vol]2.5 g/dLNormal1.9-3.7 [facility] DiagnosticsComment on above:Performed By: #### 6399, 7600, 00209 #### [facility] of [place] [address] Electrical Machinist: Truman Liao MDGlucose [Mass/Vol]99 mg/wGKfxaum40-80Mpmam DiagnosticsComment on above:Result Comment: Fasting reference intervalPerformed By: #### 6399, 7600, 89897 #### [facility] of [place] [address] Electrical Machinist: Truman Liao MDPotassium [Moles/Vol]4.3 mmol/LNormal3.5-5.3 [facility]osticsComment on above:Performed By: #### 6399, 7600, 81862 #### [facility] of [place] [address] Electrical Machinist: Truman Liao MDProtein [Mass/Vol]6.8 g/dLNormal6.1-8.1[facility] DiagnosticsComment on above:Performed By: #### 6399, 7600, 93183 #### [facility] of [place] [address] Electrical Machinist: Truman Liao MDSodium [Moles/Vol]143 mmol/YClmyem843-101Kpjmu DiagnosticsComment on above:Performed By: #### 6399, 7600, 65017 #### [facility] of [place] [address] Electrical Machinist: Truman Liao MDUrea nitrogen [Mass/Vol]12 mg/dLNormal7-25 [facility]osticsComment on above:Performed By: #### 6399, 7600, 10875 #### [facility] of [address] Electrical Machinist: Truman Root nitrogen/Creatinine [Mass ratio]23 mg/mg High6-22Quest DiagnosticsComment on above:Performed By: #### 6399, 7600, 31457 #### [facility] [address], [address] [place] [address] Electrical Machinist: Truman Liao MDLIPID PANEL, STANDARD 53-72-9514Hqmrtgvduyh [Mass/Vol]174 mg/dLNormal<200Quest DiagnosticsComment on above:Order Comment: FASTING:YES FASTING: YESPerformed By: #### 6399, 7600, 75747 #### [facility] [address], [address] [place] [address] Electrical Machinist: Truman Liao MDCholesterol in HDL [Mass/Vol]86 mg/dLNormal> OR = 50Quest DiagnosticsComment on above:Order Comment: FASTING:YES FASTING: YESPerformed By: #### 6399, 7600, 76553 #### [facility] [address], [address] [place] [address] Electrical Machinist: Truman Liao MDCholesterol in LDL [Mass/Vol]73 mg/dLNormal [...] LDL-C. Brad HANKINS et al. MAMIE. 2013;310(19): 7678-9083 (http://education.Har[employer].Snapsheet/faq/LPT170)Performed By: #### 6399, 7600, 73645 #### [facility] [address], [address] [place] [address] Electrical Machinist: Truman Liao MDCholesterol.total/Cholesterol in HDL [Mass ratio]2.0 {ratio}Normal<5.0Quest DiagnosticsComment on above:Order Comment: FASTING:YES FASTING: YESPerformed By: #### 6399, 7600, 86117 #### [facility] [place] [address] Electrical Machinist: Truman BERGMAN HDL VMJOTNBIKDF63 mg/dL (calc)Normal<130 [facility]osticsComment on above:Order Comment: FASTING:YES FASTING: YESResult Comment: For patients with diabetes plus 1 major ASCVD risk factor, treating to a non-HDL-C goal of <100 mg/dL (LDL-C of <70 mg/dL) is considered a therapeutic option.Performed By: #### 6399, 0, 04904 #### [facility] [place] [address] Electrical Machinist: Truman Liao MDTriglyceride [Mass/Vol]70 mg/dLNormal<150Quest DiagnosticsComment on above:Order Comment: FASTING:YES FASTING: YESPerformed By: #### 6399, 0, 13722 #### [facility] [place] [address] Electrical Machinist: Truman Liao [facility]DMAS[facility] W/REFLEX TO FT4on 98-03-5906TCI W/REFLEX TO FT41.58 mIU/LNormal0.40-4.50Quest DiagnosticsComment on above:Performed By: #### 6399, 7599, 32478 #### [facility] [place] [address] Electrical Machinist: Truman Liao MDMR lumbar spine wo [facility] 64-99-0460BH lumbar spine wo [facility] [place] [address] MRI Report Signed Patient: Miguel Gonzalez MR#: [id number] : 1955 Acct:[id number] Age/Sex: 69 / F ADM Date: 03/18/25 Loc: MR Room: Type: [facility] CLI Attending Dr: Blu Kothari II, MD [...] narrowing identified. L2-3: Broad-based disc bulge with fviq-wd-smfvhtzs facet arthropathy. Minimal foraminal narrowing. Canal is patent. L3-L4: Circumferential disc bulge with moderate facet arthropathy. Mild neural foraminal narrowing. Minimal central canal stenosis. L4-5: Disc desiccation. Moderate disc facet arthropathy. No significant central canal or neural from narrowing identified. L5-S1: Circumferential disc bulge with moderate facet arthropathy. Moderate right moderate left neural foraminal narrowing. MR/MR lumbar spine wo con IMPRESSION: Onlu-gu-snhvpktu multilevel degenerative changes without high-grade canal or neural foraminal narrowing. Moderate left neural foraminal narrowing at L5-S1 Impression dictated by: Ever Odonnell M.D. 03/18/2025 3:49 PM Dictation Location: [place] [address] Transcribed By: [facility] 03/18/25 1545 Dictated By: Ever Odonnell MD 03/18/25 1509 Signed By: 03/18/25 1549[facility] Servicesetic resonance imaging reportOrdered By: Ever Odonnell on 30-84-8895Hejbr reportMAIN [facility] Main [place] [address] [place] [address] MRI Report Signed Patient: Miguel Gonzalez MR#: [id number] : 1955 Acct:[id number] Age/Sex: 69 / F ADM Date: 5 Loc: MR Room: Type: [facility] Attending Dr: Blu Kothari II, MD Copies [...] narrowing identified. L2-3: Broad-based disc bulge with bffw-gp-hvlcffet facet arthropathy. Minimal foraminal narrowing. Canal is patent. L3-L4: Circumferential disc bulge with moderate facet arthropathy. Mild neural foraminal narrowing.Minimal central canal stenosis. L4-5: Disc desiccation. Moderate disc facet arthropathy. No significant central canal or neural from narrowing identified. L5-S1: Circumferential disc bulge with moderate facet arthropathy. Moderate right moderate left neural foraminal narrowing. MR/MR lumbar spine wo con IMPRESSION: Kxat-qc-emibskbc multilevel degenerative changes without high-grade canal or neural foraminal narrowing. Moderate left neural foraminal narrowing at L5-S1 Impression dictated by: Ever Odonnell M.D. 03/18/2025 3:49 PM Dictation Location: [facility] Transcribed By: [facility] 03/18/25 1549 Dictated By: Ever Odonnell MD 03/18/25 1509 Signed By: 03/18/25 1549 [facility] Work Phone: CT ABDOMEN PELVIS W IV CONTRASTon 49-22-1062KC ABDOMEN PELVIS W IV CONTRASTCT of the [...] scoliosis ELECTRONICALLY SIGNED BY: Renetta Meyer AvailableCREATININEon 33-29-1208Swhjvgzakw [Mass/Vol]0.55 mg/dLNormal0.50-1.05Quest DiagnosticsComment on above:Performed By: #### 375 #### [facility] [address], [address] [place] [address] Electrical Machinist: Truman Liao MDGFR/1.73 sq M.predicted among non-blacks MDRD (S/P/Bld) [Vol rate/Area]99 mL/min/{1.73_m2}Normal> OR = 60[facility] Comment on above:Performed By: #### 375 #### [facility] [address], [address] [place] [address] Electrical Machinist: Truman Liao MDUrinalysis macro (dipstick) panel (U)on 12-79-3196Qykaoayjj, UANegativeNegative - 4(70) +++ mg/dLNOMS HealthcareBlood, UANegativeNegative - 50 Tan/mcLNOMS HealthcareGlucose, UANegativeNegative - 2000(110) ++++ mg/dLNOMS HealthcareKetones, UANegativeNegative - 160(16) ++++ mg/dLNOMS HealthcareLeukocytes, UANegativeNegative - 500+++ [place]/mcLNOMS HealthcareNitrite, UANegativeNegative - PositiveNOMS HealthcarepH, UA6.55 - 9 NOMS HealthcareProtein, UANegativeNegative - 2000(20) ++++ mg/dLNOMS Healthcare Spec Grav, UA1.0051 - 1.03NOMS HealthcareUrobilinogen, UA0.20.2 - 12 mg/dLNOMS HealthcareNOMS HealthcareXR Shoulder - right 2 Viewson 63-60-6074Uorcncm Result: scapular Y and AP, and axillary x-rays of right shoulder showed humeral head to be well centered in the glenoid fossa. There was no evidence of subluxation or dislocation. There was no evidence of degenerative joint disease. Acromioclavicular joint appeared to be well preserved. There was no acute bony process including but not limited to fracture and/or dislocation. Impression: Unremarkable right shoulder. [facility] HealthcareXR Shoulder - right 2 ViewsOrdered By: Jr. Waite on 08-02-2024 [facility] Emergency [employer] Work Phone: xr Shoulder - right 2 Viewson 41-81-0234Gfsasohwm Study observation (narrative)[facility] THORACIC SPINE 3Von 12-38-8215W[address] [address] XRay Report Signed Patient: MIGUEL GONZALEZ MR#: [id number] : 1955 Acct:[id number] Age/Sex: 68 / F ADM Date: 12/26/23 Loc: RAD Attending Dr: Arline Kohli PRODUCT SUPPORT MANAGER Ordering Physician: Arline Kohli NP Date of Service: 12/26/23 Procedure(s): XR thoracic spine 3V Accession Number(s): [id number] cc: BLU KOTHARI ; Arline Kohli NP [address] [address] Patient Name: MIGUEL GONZALEZ MRN: [id number] date: 1955 Sex: F Assigned Patient Location: [facility] Current Patient Location: [facility] Accession/Order Number: [id number] Exam Date: 12/26/2023 10:18 Report Date: 12/26/2023 [...] Signed By: 12/26/23 1104 DD/ 1101 TD/TT: Travel Director:STEPHANIEadiologolive, Radiologist, - 12/29/2023 [place] [address] XRay Report Signed Patient: MIGUEL GONZALEZ MR#: [id number] : 1955 Acct:[id number] Age/Sex: 68 / F ADM Date: 12/26/23 Loc: RAD Attending Dr: Arline Kohli PRODUCT SUPPORT MANAGER Ordering Physician: Arline Kohli NP Date of Service: 12/26/23 Procedure(s): XR thoracic spine 3V Accession Number(s): [id number] cc: BLU KOTHARI ; Arline Kohli NP The [place] [id number] Patient Name: MIGUEL GONZALEZ MRN: [id number] date: 1955 Sex: F Assigned Patient Location: [facility] Current Patient Location: [facility] Accession/Order Number: [id number] Exam Date: 12/26/2023 10:18 Report Date: 12/26/2023 [...] Signed By: 12/26/23 1104 DD/ 1101 TD/TT: Travel Director: [facility] HealthcareRadiology Study observation (narrative)[facility] HealthcareXR THORACIC SPINE 3VOrdered By: Radiologist Radiology on 10-89-0905[facility] Work Phone: coding Summary.on 23-20-6125Rltduq Summary. CD:[id number]AW5ZQK1tz AW4CSakF9ZukdRs [file] ZTog (more content not included)...NormalFisher Mike Medical CenterED Note-Physicianon 94-90-0041LC Note-PhysicianBasic Information Time Seen: Alexandr Eduardo PA-C [...] They are unsure of who the cats rural health consultant is. She states they are unsure whether the cat is up-to-date on its immunizations. She states that her dog is one after the cat, and she attempted to pick up attendant the cat when the cat turned and [...] Appropriate mood & affect. Integumentary: Warm, Dry, [place]. Puncture wounds noted to the left thumb [...] KOTHARI In 3 days 04/08/2021 EDT [address] [place] [address]- Business(1) Additional Instructions: Wear the splint for [...] foreign body noted. Read By: Alexandr Eduardo PA-CMercy Health St. Vincent Medical CenterComment on above:Result Comment: Electronically Signed By: Alexandr Eduardo PA-C\.br\Date and Time Signed: 04/05/21 21:31 EDT\.br\Electronically Co- Signed By: Abdoulaye Watson M.D.\.br\Date and Time Co-Signed: 04/06/21 11:28 EDTAnimal Bite Investigationon 11-80-8378Wwaicl Bite Investigation [id number]#1.00CD:[address] [place], [place] [address]Consent for Treatmenton 46-88-6076Eckhpmz for Treatment [id number]#1.00CD:[address] [place], [place] [address]Discharge Instructionson 95-22-0281Lcpxargbx Instructions [id number]#1.00CD:[address] [place] [address] Clinical Summaryon 98-50-0359RM Clinical Summary [place] [id number] ED Clinical Summary Person Information Name: MIGUEL GONZALEZ [facility] Age: 65 Years : 1955 Sex: Female Language: Hong Konger PCP: BLU KOTHARI MD Marital Status: Visit [...] 04/05/2021 14:46:42 04/05/2021 14:46:42 04/05/2021 14:46:42 ADDRESS: [address] [place] [address] [address] [place] [phone] [facility] DOC NOTES: MEDICAL INFORMATION: Prescriptions Given: [...] Follow up: With: Address: When: BLU KOTHARI [address] [place] [address] [phone] [facility] (1) In 3 days 04/08/2021 Comments: [...] legNormalFisher Mike Medical CenterED Patient Education Noteon 79-86-1175ZJ Patient Education NoteInfectious Disease Animal Bite, Adult [...] and water are not available, use hand agency appointments supervisor. ? Change your dressing as told by [...] bad smell. Medicines ? Take or apply vuoo-rlf-epzjggq and prescription medicines only as told by [...] wound care, antibiotic medic (more content not included)...[facility] Patient Summaryon 31-46-0883HV Patient Summary [place] [id number] Patient Discharge Instructions Person Information Name: MIGUEL GONZALEZ Age: 65 Years Arrival Date: 04/05/2021 12:55:11 Discharge Diagnosis: 1:Cat bite of left hand; 2:Cat scratch of lower leg Primary Care Physician: BLU KOTHARI MD Provider Information Primary Provider: Abdoulaye Watson M.D. Advanced Manager Adult:Alexandr Eduardo PA-C The exam and treatment you received in the Emergency Department were for an urgent problem and are not intended as complete care. It is important that you follow up with a doctor, nurse practitioner,or physician?s certified first assistant for ongoing care. If your symptoms [...] Follow-up Instructions: With: Address: When: BLU KOTHARI [address] [place] [address] [facility] (1) In 3 days 04/08/2021 Comments: [...] opioids can be used to help relieve muprcqve-nm-laznyh pain and are often prescribed following a [...] your community drug take- back program or your[facility] Health mail-back program, or flush them down the toilet, following guidance from the Food and Drug (more content not included)...Normal [facility] HospitalVaccinationson 68-41-0511Fgygnebzwmte [id number]#1.00CD:127NoSt. John of God HospitalXR Finger(s) Min 2 Views Lefton 78-15-9938DJ Finger(s) Min 2 Views Left Exam Date/Time: [...] Amrit Hernandez M.D. Transcribed by: MAYELIN Technologist: PollySt. John of God HospitalCovid-19 PCR (CVDTBH)on 94-11-9012Rgoak-19 PCRNOT DETECTEDNormalNOT DETECTEDThe [facility] Willard HospitalComment on above:Result Comment: This test is not yet approved or cleared by the [place] FDA. When there are no FDA-approved or cleared tests available, and other criteria are met, FDA can make tests available under an emergency access mechanism called an Emergency Use Authorization (EUA). The EUA for this test is supported by the [place] of Health and Human Service's (HHS's) declaration [...] be used). Performed By: #### CVDTBH #### [facility] [address] [place], [place] [id number] Adore Deutsch Mercy HealthComment on above: Result Comment: This test is not yet approved or cleared by the [place] FDA. When there are no FDA-approved or cleared tests available, and other criteria are met, FDA can make tests available under an emergency access mechanism called an Emergency Use Authorization (EUA). The EUA for this test is supported by the [employer] Repairer of Health and Human Service?s (HHS?s) declaration [...] consistent with SARS-CoV-2.Performed By: #### CVDTBH #### [facility] [address] [place], [place] [id number] Adore Hale Vital Signs Date TimeVital SignValuePerforming BwjpijlsbOofwngep73-55-8450 08:55-0400Body umvuhp687.8 cmDaadams Kothari MD Work Phone: NOCox BransonDksflhsrgo77-53-7415 08:55-0400Body mass index (BMI) [Ratio]26.62 kg/f9TuswpmBlu Kothari MD Work Phone: [facility]OC[facility] BransonPwxkzcisqa83-58-5007 08:55-0400Body wvjoiz24.79 kgBlu Kothari MD Work Phone: [facility]OC[facility] BransonNsviqyivwy27-62-0211 08:55-0400Diastolic blood mm[Hg]Blu Kothari MD Work Phone: NOC[facility] BransonYkkehufysi82-50-8793 08:55-0400Heart rate65 /min Blu Kothari MD Work Phone: NOC[facility] BransonIhtwxbpdjk75-22-5146 08:55-9987ZhW4% (BldA) [Mass fraction]97 %Blu Kothari MD Work Phone: NOC[facility] BransonHfqdfbydxi81-71-4462 08:55-0400Systolic blood bzxfizes008 mm[Hg]Blu Kothari MD Work Phone: [facility]OC[facility] BransonYwxovmyfxv97-85-4952 08:54-0400Body bpgmja706.8 cmBlu Kothari MD Work Phone: NOC[facility] BransonMjllodafda85-18-4248 08:54-0400Body mass index (BMI) [Ratio]26.81 kg/j1BavbatBlu Kothari MD Work Phone: [facility]OC[facility] BransonPjqshtncec25-42-1437 08:54-0400Body ohryuc21.2 kg Blu Kothari MD Work Phone: [facility]OC[facility] BransonEcpmblsvah59-14-6544 08:54-0400Diastolic blood lzujahud034 mm[Hg]Blu Kothari MD Work Phone: [facility]OC[facility] BransonUxnnolthoq11-28-0540 08:54-0400Heart rate68 /min Blu Kothari MD Work Phone: [facility] HealthUgwqtfuziq53-84-5751 08:54-0400Respiratory rate16 /minDpreston Kothari MD Work Phone: [facility]OC[facility] BransonYptngzfubs31-14-3007 08:54-9149UqC1% (BldA) [Mass fraction]98 %Blu Kothari MD Work Phone: NOC[facility] BransonGppsyrykyx06-36-7957 08:54-0400Systolic blood ismwwcax084 mm[Hg]Blu Kothari MD Work Phone: NOC[facility] BransonQjkuxrwkof75-41-8451 09:18-0400Body .8 cmBlu Kothari MD Work Phone: [facility]OC[facility] BransonRoqrrrmnua92-58-7215 09:18-0400Body mass index (BMI) [Ratio]26.62 kg/t9XnmrdtBlu Kothari MD Work Phone: [facility]OC[facility] BransonNymhjzycon77-15-1481 09:18-0400Body atuctu71.79 kgBlu Kothari MD Work Phone: [facility]OC[facility] BransonJkeafmdzxq61-28-8792 09:18-0400Diastolic blood sdclcsed84 mm[Hg]Blu Kothari MD Work Phone: NOCox BransonDsediwpaju26-96-7243 09:18-0400Heart rate70 /min Blu Kothari MD Work Phone: [phone])[facility]-1203[facility] HealthGgiiozkcpq94-14-5994 09:18-8142ApU3% (BldA) [Mass fraction]99 %Blu Kothari MD Work Phone: [facility] HealthStzaakwhfs33-98-2671 09:18-0400Systolic blood agnkjclv600 mm[Hg]Blu Kothari MD Work Phone: [facility] HealthYemqqzysmd37-01-7756 09:04-0400Body zpaufn280.8 cmDaadams Kothari MD Work Phone: [phone] HealthXxeuciuztj22-61-8800 09:04-0400Body mass index (BMI) [Ratio]26.83 kg/g1PdeimnBlu Kothari MD Work Phone: [facility] HealthBxsudeitbq32-39-2697 09:04-0400Body nwdfad31.25 kgBlu Kothari MD Work Phone: [facility] HealthXlanbzimas71-59-8918 09:04-0400Diastolic blood mm[Hg]Blu Kohtari MD Work Phone: [facility]OC[facility] BransonPvcwdzsujs47-50-4487 09:04-0400Heart rate72 /min Blu Kohtari MD Work Phone: [facility] HealthSyjqzavrao17-56-7606 09:04-5425WzP9% (BldA) [Mass fraction]98 %Blu Kothari MD Work Phone: [facility] HealthVixedolste31-90-6466 09:04-0400Systolic blood mm[Hg]Blu Kothari MD Work Phone: noCox BransonUgedygajkr25-16-7989 08:16-0400Body jzhdem306.8 cmMattgeovanna Mercedes PA Work Phone: noCox BransonSysgpyjiue26-39-2808 08:16-0400Body mass index (BMI) [Ratio]25.75 kg/o5Xxifpvx Mercedes PA Work Phone: [facility] HealthEbetrpodez21-13-9778 08:16-0400Body qltexf54.98 kgMatthew Mercedes PA Work Phone: noCox BransonEprjzfbbxg13-98-1866 08:35-0400Body nuciku484.8 cmAlexia Hemmer PA Work Phone: noCox BransonJuurcosodh73-78-6905 08:35-0400Body mass index (BMI) [Ratio]25.92 kg/q9Twefe Hemmer PA Work Phone: [facility] HealthXfvhzoynaq66-86-5026 08:35-0400Body .34 kgKaren Hemmer PA Work Phone: [facility] HealthOextzmjwos95-42-9400 08:35-0400Diastolic blood psfqcxdy23 mm[Hg]Alexia Hemmer PA Work Phone: [facility] HealthYbsiskkagd51-03-9065 08:35-0400Heart rate70 /min Alexia Hemmer PA Work Phone: [facility] HealthBemquljaaf94-72-2766 08:35-0400Respiratory rate16 /minRoyeren Hemmer PA Work Phone: [place] [address]Kkuayrnwtc44-65-9814 08:35-4965OtW3% (BldA) [Mass fraction]96 %Alexia Hemmer PA Work Phone: NOC[facility] BransonItlcicszwl54-54-4919 08:35-0400Systolic blood uxxedhzr880 mm[Hg]Alexia Hemmer PA Work Phone: [facility]OC[facility] BransonOdmvdovuvp16-04-1045 11:58-0400Body dxqliq141.8 cmGrant Leroy PRODUCT SUPPORT MANAGER Work Phone: NOC[facility] BransonEftccztufq39-12-5256 11:58-0400Body mass index (BMI) [Ratio]25.75 kg/e8Nrzir Leroy PRODUCT SUPPORT MANAGER Work Phone: [facility]OC[facility] BransonOwlzemauks25-76-7746 11:58-0400Body ozmbbd13.98 kgGrant Leroy PRODUCT SUPPORT MANAGER Work Phone: [facility]OC[facility] BransonBmfdjpcndr48-43-6339 14:44-0400Body bizkhs103.3 cmBlu Kothari MD Work Phone: NOC[facility] BransonSfkeezioea03-30-3706 14:44-0400Body mass index (BMI) [Ratio]25.71 kg/d1ZrkmzaBlu Kothari MD Work Phone: [phone] BransonMwfoavhwue01-14-6808 14:44-0400Body anuzqd74.79 kgBlu Kothari MD Work Phone: [facility]OC[facility] BransonIwjcsbbjpq05-35-8996 14:44-0400Diastolic blood yuxqzwuh05 mm[Hg]Blu Kothari MD Work Phone: [facility]OC[facility] BransonYztbfhnneu82-12-7791 14:44-0400Heart rate79 /min Blu Kothari MD Work Phone: NOC[facility] BransonOqnhvsfdne07-44-4624 14:44-2249NbK1% (BldA) [Mass fraction]98 %Blu Kothari MD Work Phone: NOC[facility] BransonSdqfkualer34-47-3522 14:44-0400Systolic blood iceyougq883 mm[Hg]Blu Kothari MD Work Phone: [facility] Encounters Encounter DateEncounter TypeCare ProviderFacilityStart: 08-12-2025 End: 82-43-8746Yadxju flowsheetBlu Kothari MD Work Phone: [facility] [place] [facility] MedinceStart: 08-12-2025 End: 14-04-0321Vrnfyw flowsheetBlu Kothari MD Work Phone: [facility] [place] [facility] MedinceStart: 08-12-2025 End: 56-77-7955Ewerjm outpatient visit 25 minutesBlu Kothari MD Work Phone: [facility] [place] [facility] MedinceComment on above:Lumbosacral spondylosis with radiculopathy (Primary Dx); Primary hypertension ; Cervical spondylosis without myelopathy; Elevated LDL cholesterol levelStart: 08-12-2025 End: 82-91-7582mliguwbvexULUTSW B BERRYNot AvailableStart: 08-08-2025 End: 63-38-1332buxmffoploAimfdqn Vytautas Giedraitis MDFacility:PM [facility] Start: 07-11-2025 End: 48-45-8093ckzgqupefpToldmcs Vytautas Giedraitis MDFacility:PM [place] Start: 06-06-2025 End: 73-42-0428jaztpnafcaZwycifj Vytautas Giedraitis MDFacility:PM [facility] Start: 05-02-2025 End: 18-64-3592mtuytqecipBarxluq Vytautas Giedraitis MDFacility:PM [place] Start: 03-25-2025 End: 16-72-8486Eghhkl flowsSarah Kothari MD Work Phone: [facility] CI FMStart: 03-25-2025 End: 96-90-1404Tjstxt Rosalio Kothari MD Work Phone: [facility] CI FMStart: 03-25-2025 End: 28-54-0459Oiusjz outpatient visit 25 minutesBlu Kothari MD Work Phone: [facility] CI FMComment on above:Lumbosacral spondylosis with radiculopathy (Primary Dx)Start: 03-25-2025 End: 34-78-6158epihpcsyvzMNTOXP B BERRYNot AvailableStart: 03-18-2025 End: 94-77-6434Rrmbgwo encounter procedureBlu Kothari II Work Phone: [facility] [place] Work Phone: Start: 03-18-2025 End: 42-82-3698pyqzhbrtttRagrkg Berry II Work Phone: [facility] Work Phone: Start: 03-07-2025 End: 60-04-1540Ugkirw Rosalio Kothari MD Work Phone: [facility] CI FMStart: 03-07-2025 End: 76-09-2101Imlefu Rosalio Kothari MD Work Phone: [facility] CI FMStart: 03-07-2025 End: 94-03-0304Nntmcl outpatient visit 25 minutesDaadams Kothari MD Work Phone: [facility] CI FMComment on above:Lumbosacral spondylosis with radiculopathy (Primary Dx); Right flank pain, chronic; Other idiopathic scoliosis, thoracolumbar region; Lumbar disc narrowingStart: 03-07-2025 End: 29-96-4281eygveeujstKBMSJG B BERRYNot AvailableStart: 02-24-2025 End: 83-69-7779errdtlpvsoWVKRMR B BERRYNot AvailableStart: 02-18-2025 End: 85-35-6504Elwrwd flowsSarah Kothari MD Work Phone: [facility] CI FMStart: 02-18-2025 End: 54-31-1765Cyusid Rosalio Kothari MD Work Phone: [facility] CI FMStart: 02-18-2025 End: 69-34-4384Ooakby outpatient visit 25 minutesDaadams Kothari MD Work Phone: [facility] CI FMComment on above:Lumbosacral spondylosis with radiculopathy (Primary Dx); Right flank pain, chronicStart: 02-18-2025 End: 42-58-8870furygyhktpLRFEMI B BERRYNot AvailableStart: 01-03-2025 End: 07-64-2847Bouost Karlos MERAZ Work Phone: NOV[facility] SWS ORTHOStart: 01-03-2025 End: 07-88-2970Bdlnew Karlos MERAZ Work Phone: noms SWS ORTHOStart: 01-03-2025 End: 24-35-8834Tyepoc follow up visit related to original pxFoxcrispin MERAZ Work Phone: noms SWS ORTHOComment on above:S/P arthroscopy of right shoulder (Primary Dx)Start: 01-03-2025 End: 28-85-4864gteyvrwsgbRQLOFNO J MEYERNot AvailableStart: 12-02-2024 End: 33-70-4328Uphuzy follow up visit related to original pxFoxcrispin MERAZ Work Phone: noms SWS ORTHOComment on above:S/P arthroscopy of right shoulder (Primary Dx)Start: 12-02-2024 End: 24-18-5140zttnwicbqmPGMYAZZ J MEYERNot AvailableStart: 12-02-2024 End: 17-66-3713Jrnjtp flowsApril MERAZ Work Phone: noms SWS ORTHOStart: 12-02-2024 End: 58-64-0438Xswhnr flowsAprli MERAZ Work Phone: noms SWS ORTHOStart: 11-04-2024 End: 31-50-2816Lgkzhk Karlos MERAZ Work Phone: noms SWS ORTHOStart: 11-04-2024 End: 08-09-0276Mjampg flowsApril MERAZ Work Phone: noms SWS ORTHOStart: 11-04-2024 End: 16-85-6364Aagezb follow up visit related to original abhiApril MERAZ Work Phone: noms SWS ORTHOComment on above:S/P arthroscopy of right shoulder (Primary Dx)Start: 11-04-2024 End: 19-57-4857occpyvjcfaHVMUFUR J MEYERNot AvailableStart: 10-19-2024 End: 62-78-8935ZwbyawBgrjd T Olsen NP Work Phone: noms FB ORTHOPAEDICSComment on above:Internal derangement of right shoulder (Primary Dx)Start: 09-23-2024 End: 20-17-0446Sgmtdr flowsheetApril MERAZ Work Phone: noms SWS ORTHOStart: 09-23-2024 End: 69-63-7270Xloani flowsheetApril MERAZ Work Phone: noms SWS ORTHOStart: 09-23-2024 End: 63-79-9789Jenykaw encounter procedureMacrispin MERAZ Work Phone: noms SWS ORTHOComment on above:Pre-op examination (Primary Dx)Start: 09-23-2024 End: 80-61-8804Kionhnujpgupn examination doneApril MERAZ Work Phone: [facility] Work Phone: Start: 09-23-2024 End: 02-49-8795tzdhgelfikJMHUSFE J MEYERNot AvailableStart: 09-15-2024 End: 70-86-4982Dsrkkl flowsheetJr. Son Waite DO Work Phone: noms SWS ORTHOStart: 09-15-2024 End: 05-37-1801Vymuiv flowsheetJr. Son Waite DO Work Phone: noms SWS ORTHOStart: 09-15-2024 End: 21-46-0438Kuhnun outpatient visit 25 minutesJr. Son Waite DO Work Phone: noms SWS ORTHOComment on above:Internal derangement of right shoulder (Primary Dx)Start: 09-15-2024 End: 66-75-3765jxalusxyhkTJ., SON Portillo AvailableStart: 08-23-2024 End: 29-70-2878Kupjrmoea encounterJr. Son Waite DO Work Phone: noms SWS ORTHOComment on above:SurgeryStart: 08-20-2024 End: 18-85-7870Qknmuh Tammi MERAZ Work Phone: [facility] CI FMStart: 08-20-2024 End: 01-78-3079Zrdmsc Tammi MERAZ Work Phone: [facility] CI FMStart: 08-20-2024 End: 50-85-1985Jqyicaq encounter procedureAlexia MERAZ Work Phone: [facility] [...] Internal derangement of right shoulderStart: 08-20-2024 End: 98-89-5130rubmxqwqbtLIRIYAndrei Zayas AvailableStart: 08-13-2024 End: 59-76-1680Lybkmi flowsheetJr. Son Waite DO Work Phone: [facility] SWS ORTHOStart: 08-13-2024 End: 96-76-0342Nmmcaf flowsheetJr. Son Guerrero Stepanic DO Work Phone: [facility] SWS ORTHOStart: 08-13-2024 End: 91-27-7390Kcyymg outpatient visit 25 minutesJr. Son Guerrero Stepanic DO Work Phone: noMS SWS ORTHOComment on above:Internal derangement of right shoulder (Primary Dx)Start: 07-27-2024 End: 01-44-2301Qjnjui Amish Leroy NP Work Phone: [facility] CI ORTHOPAEDICSStart: 07-27-2024 End: 03-23-1137Haozag Amish Leroy PRODUCT SUPPORT MANAGER Work Phone: [facility] CI ORTHOPAEDICSStart: 07-27-2024 End: 68-46-0103Oxalqa outpatient new 30 minutesJimmyt Estela Leroy NP Work Phone: noMS CI ORTHOPAEDICSComment on above:Internal derangement of right shoulder (Primary Dx); Right shoulder pain, unspecified chronicityStart: 07-21-2024 End: 95-87-2412Amtlap outpatient visit 25 minutesDaadams Kothari MD Work Phone: [facility] CI FMComment on above:Cervical spondylosis without myelopathy (Primary Dx); Age-related osteoporosis without current pathological fracture (CMS/HCC); Primary hypertension (CMS/HCC); Gastroesophageal reflux disease without esophagitis; Lumbosacral spondylosis with radiculopathy; Elevated LDL cholesterol level (CMS/HCC); Shoulder capsulitis, rightStart: 07-21-2024 End: 35-88-8417Tkhqek pawanheetBlu Kothari MD Work Phone: [facility] CI FMStart: 07-21-2024 End: 55-99-7182Uqdpfu Rosalio Kothari MD Work Phone: [facility] CI FMStart: 28-89-6847BsweriEeosec B Berry MD Work Phone: [facility] CI FMComment on above:Cervical spondylosis without myelopathy (Primary Dx)Start: 12-26-2023 End: 62-84-9952Azdvflmtc Result EncounterGeneric External Data ProviderNOMS External Department UnsolicitedStart: 12-26-2023 End: 74-01-5744Lrprdmqge Result EncounterGeneric External Data ProviderNOMS External Department UnsolicitedStart: 12-21-2020 End: 37-37-0461Mvmetrk encounter procedureDAADAMS KOTHARIFacility:H1 Procedures DateProcedureProcedure DetailPerforming ClinicianStart: 63-84-7832AR lumbar spine wo June Kothari II Work Phone: Start: 76-41-9689Whuif dip stick/tablet rgnt non-auto w/o micrscpDpreston Kothari MD Work Phone: Start: 34-47-6458Xerpa shoulder complete minimum 2 viewsGrant T Mariaa NICOLE Work Phone: Start: 33-47-0160XZ THORACIC SPINE 3VGeneric External Data ProviderStart: 07-03-2023H/O: hysterectomyHistory of hysterectomyBlu Kothari MD Work Phone: H/O: hysterectomyHistory of hysterectomyAlexia MERAZ Work Phone: Plan of Treatment DateCare ActivityDetailAuthorStart: 97-30-2801Pptqicwgb for malignant neoplasm of colonNOMS HealthcareStart: 11-11-2025 End: 57-73-2687Xzsdndi encounter /19/2025 8:30 AM EST Office Visit [facility] [place] [facility] [address] [place] [id number] Blu Kothari MD [address] [facility] [address] [place] [address] [facility] MedinceStart: 08-20-2025 Medicare Annual Wellness (AWV)Medicare Annual Wellness (AWV)[facility] Start: 08-12-2025 End: 08-09-5978Bphezchfemenk metabolic 2000 panel - Serum or PlasmaComprehensive metabolic panel Lab Routine Primary hypertension Elevated LDL cholesterol level Expected: 08/12/2025 (Approximate), Expires: 08/12/2026[facility] HealthcareComment on above:Expected: 08/12/2025 (Approximate), Expires: 08/12/2026Start: 08-12-2025 End: 06-71-2116Nhtou 1996 panel - Serum or PlasmaLipid panel Lab Routine Primary hypertension Elevated LDL cholesterol level Expected: 08/12/2025 (Approximate), Expires: 08/12/2026[facility] HealthcareComment on above:Expected: 08/12/2025 (Approximate), Expires: 08/12/2026Start: 08-12-2025 End: 59-43-1040LNR W/REFLEX TO FT4TSH W/REFLEX TO FT4 Lab Routine Primary hypertension Elevated LDL cholesterol level Expected: 08/12/2025 (Approximate), Expires: 08/12/2026N[facility] HealthcareComment on above:Expected: 08/12/2025 (Approximate), Expires: 08/12/2026Start: 08-12-2025 End: 10-21-6615Sjtkfiq encounter twqtztywe88/19/2025 9:00 AM EDT Office Visit [facility] [place] [facility] [address] [facility] [address] [place] [address] Blu Kothari MD [address] [facility] [address] [place] [address] ArrivedNOMS [place] James MedinceComment on above:ArrivedStart: 50-58-0859AURPX-19 Vaccine ( season)COVID-19 Vaccine ( season)N[facility] HealthcareStart: 19-10-4657Ztlmafowd vaccinationInfluenza Vaccine (#1)[facility] HealthcareStart: 37-00-7331Hhtivjrho vaccinationInfluenza Vaccine (#1)[facility] HealthcareComment on above:Postponed from 07/25/2024 (Patient Refused)Start: 03-25-2025 End: 39-26-5949Yoqubdz encounter procedureNOMS CI FMComment on above:Arrived Start: 03-07-2025 End: 30-34-6261LN Lumbar spine WO contrastMR lumbar spine wo contrast Imaging Routine Lumbosacral spondylosis with radiculopathy Other idiopathic scoliosis, thoracolumbar region Lumbar disc narrowing Expected: 03/07/2025 (Approximate), Expires: 03/07/2026[facility] Work Phone: Comment on above:Expected: 03/07/2025 (Approximate), Expires: 03/07/2026Start: 03-07-2025 End: 76-41-1819Sskzdcr encounter procedureNOMS CI FMComment on above:Arrived Start: 02-18-2025 End: 54-47-9787Lcunqbakte [Mass/volume] in Serum or PlasmaCreatinine, Serum Lab Routine Right flank pain, chronic Expected: 02/18/2025 (Approximate), Expires: 02/18/2026[facility] HealthcareComment on above:Expected: 02/18/2025 (Approximate), Expires: 02/18/2026Start: 02-18-2025 End: 58-05-0819ZF Abdomen and Pelvis W contrast IVCT abdomen pelvis w IV contrast Imaging Routine Right flank pain, chronic Expected: 02/18/2025 (Appr oximate), Expires: 02/18/2026[facility] Healthcare Work Phone: Comment on above:Expected: 02/18/2025 (Approximate), Expires: 02/18/2026Start: 02-18-2025 End: 47-83-4261Qrcddsb encounter procedureNOMS CI FMComment on above:Arrived Start: 01-03-2025 End: 43-39-6748Hfxzmto encounter procedureNOMS SWS ORTHOComment on above:S/P arthroscopy of right shoulder (Primary Dx)Start: 12-02-2024 End: 71-72-3612Mawqoyw encounter procedureNOMS SWS ORTHOComment on above:S/P arthroscopy of right shoulder (Primary Dx)Start: 11-04-2024 End: 47-72-3970Dvpizmv encounter procedureNOMS SWS ORTHOComment on above:S/P arthroscopy of right shoulder (Primary Dx)Start: 09-23-2024 End: 56-80-4252Psqxksl encounter procedureNOMS SWS ORTHOComment on above:Pre-op examination (Primary Dx)Start: 09-15-2024 End: 73-27-6529Vgqkxmw encounter procedureNOMS SWS ORTHOComment on above:Arrived Start: 02-42-3944Aqogwjhja for malignant neoplasm of breastMammogramNOMS HealthcareComment on above:Postponed from 1995 (Patient Refused)Start: 08-20-2024 End: 19-84-8862BAV W Auto Differential panel - BloodCBC and differential Lab Routine Medicare annual wellness visit, subsequent Primary hypertension (CM S/HCC) Expected: 08/20/2024 (Approximate), Expires: 08/20/2025[facility] Work Phone: Comment on above:Expected: 08/20/2024 (Approximate), Expires: 08/20/2025Start: 08-20-2024 End: 07-36-3066Moqqelgjndccy metabolic 2000 panel - Serum or PlasmaComprehensive metabolic panel Lab Routine Medicare annual wellness visit, subsequent Primary hypertension (CMS/HCC) Elevated LDL cholesterol level (CMS/HCC) Hypercalcemia Expected: 08/20/2024 (Approximate), Expires: 08/20/2025NOMS HealthcareComment on above:Expected: 08/20/2024 (Approximate), Expires: 08/20/2025Start: 08-20-2024 End: 85-44-2721RUHSTNRRB C AB W/RFL RNS, PCR W/RFL GENOTYPE,LIPAHEPATITIS C AB W/RFL RNS, PCR W/RFL GENOTYPE,LIPA Lab Routine Medicare annual wellness visit, subsequent Other problems related to lifestyle Expected: 08/20/2024 (Approximate), Expires: 08/20/2025NOMS HealthcareComment on above:Expected: 08/20/2024 (Approximate), Expires: 08/20/2025Start: 08-20-2024 End: 94-09-0347Lykqw 1996 panel - Serum or PlasmaLipid panel Lab Routine Medicare annual wellness visit, subsequent Primary hypertension (CMS/HCC) El evated LDL cholesterol level (CMS/HCC) Expected: 08/20/2024 (Approximate), Expires: 08/20/2025NOMS HealthcareComment on above:Expected: 08/20/2024 (Approximate), Expires: 08/20/2025Start: 08-20-2024 End: 44-06-3936Ksozfzb encounter procedureNOMS CI FMComment on above:Arrived Start: 08-13-2024 End: 31-05-3513Ktlspgx encounter procedureNOMS SWS ORTHOComment on above:Arrived Start: 08-11-2024 End: 67-50-6286Dwjqotudrpnj / ancillary services rigceohkcs19/18/2024 8:00 AM EDT Ancillary Procedure [facility] [address] [place] [address] YXJT MRStart: 08-06-2024 End: 95-24-6383Oeuicdq encounter wbczuwojn18/13/2024 9:30 AM EDT Office Visit [facility] [address] [place] [address] Blu Kothari MD [address] [facility] [address] [place] [address] [facility] CI FMStart: 09-08-2024Medicare Annual Wellness (AWV) Medicare Annual Wellness (AWV)NOMS HealthcareStart: 07-27-2024 End: 77-74-0986HS Shoulder - right WO contrastMR shoulder right wo IV contrast Imaging Routine Internal derangement of right shoulder Expected: 07/27/2024 (Approximate), Expires: 07/27/2025[facility] Work Phone: Comment on above:Expected: 07/27/2024 (Approximate), Expires: 07/27/2025Start: 07-27-2024 End: 41-45-4402Wuswyuy encounter cthomfepc55/03/2024 9:00 AM EDT Office Visit [facility] [address] [place] [address] Isabel Leroy, PRODUCT SUPPORT MANAGER [address] [place] [address] Right shoulder pain, unspecified chronicityNOMS CI ORTHOPAEDICSComment on above:Right shoulder pain, unspecified chronicityStart: 44-23-4350Ukpscuwhs vaccinationInfluenza Vaccine (#1)NOMS HealthcareStart: 07-21-2024 End: 29-43-1724Jikdyos encounter /28/2024 2:45 PM EDT Office Visit [facility] [address] [place] [address] Blu Kothari MD [address] [facility] [address] [place] [address] ArrivedNOMS CI FMComment on above:ArrivedStart: 12-29-2023 End: 11-50-7909Pkeolvy encounter mpbyconiq85/05/2024 3:30 PM EST Office Visit [facility] [address] [place] [id number] Blu Kothari MD [address] [place] [address] [facility] CI FMStart: 59-96-3568Tmzrvmzrszzc Vaccine: 65+ Years (2 - PCV)Pneumococcal Vaccine: 65+ Years (2 - PCV)[facility] HealthcareStart: 06-20-2022 Pneumococcal Vaccine: 65+ Years (2 of 2 - PCV)Pneumococcal Vaccine: 65+ Years (2 of 2 - PCV)[facility] HealthcareStart: 24-46-9988LKbQ/Tdap/Td Vaccines (2 - Td or Tdap)DTaP/Tdap/Td Vaccines (2 - Td or Tdap)[facility] HealthcareStart: 1995 Screening for malignant neoplasm of breastMammogramNOSC HealthcareStart: 85-34-9293Jynpeorlj for malignant neoplasm of colonNOMS HealthcareCBC W Auto Differential panel - BloodCBC and differential Lab Routine Primary hypertension Lumbosacral spondylosis with radiculopathy Elevated LDL cholesterol level Ordered: 08/12/2025[facility] Healthcare Work Phone: Comment on above:Ordered: 08/12/2025 Immunizations Immunization DateImmunizationNotesCare DdkvwqnqNkjxwadh18-15-9105Dnwibjzzswic Conjugate PCV 20Daadams Kothari MD Work Phone: [facility] HealthVxybnftzyv14-04-6591glpgdznek, high dose seasonal, preservative-Claudia Kothari MD Work Phone: [facility] HealthPuhagjdlqv96-44-5341jzjcmnrfh virus vaccine, unspecified formulationBlu Kothari MD Work Phone: [facility] HealthYxadkvnoum75-20-6800Vciiarbtd, Seasonal, Quadrivalent, AdjuvantSarah Kothari MD Work Phone: [facility] HealthSmmmupmthh09-31-6389dtjpqnueo virus vaccine, unspecified formulationBlu Kothari MD Work Phone: [facility] HealthJeeivmpvzt14-44-6946Ykboddrwr, High-dose Seasonal, Quadrivalent, Preservative Claudia Kothari MD Work Phone: [facility] HealthZefzbfxalu12-49-9962rbuqeh vaccine recombinant Blu Kothari MD Work Phone: [facility] HealthXtluxsfoyt77-95-0981njcsip vaccine recombinant Blu Kothari MD Work Phone: [facility] HealthNwqjxxxgmt89-24-5330Huscgjtas, High-dose Seasonal, Quadrivalent, Preservative Claudia Kothari MD Work Phone: [facility] HealthYralvjddlm73-92-9515thlgssphzybg polysaccharide vaccine, 23 valentBlu Kothari MD Work Phone: [facility] BransonHuglzkkcph76-05-0939zmwapfi toxoid, reduced diphtheria toxoid, and acellular pertussis vaccine, adsorbedDaadams Kothari MD Work Phone: [facility] BransonBhqurwzqfl47-64-5262Qdjwnpcam, High-dose Seasonal, Quadrivalent, Preservative Claudia Kothari MD Work Phone: [facility] Payers DatePayer CategoryPayerPolicy [id number] Health [id number] [id number] [id number] [id number] [id number] 2023 [id number] 2.16.840.1.681887.3.57[id number] 2.16.840.1.518104.3.57[id number] 2..840.1.700132.3.57[id number] 2..840.1.958217.3.57[id number] 2.16.840.1.173650.3.57[id number] 2..840.1.598213.3.57[id number] 2..840.1.206344.3.57[id number] 2.840.1.601389.3.57[id number] 2..840.1.861751.3.57[id number] 2..840.1.696215.3.579.2.[id number] 2..840.1.433790.3.57[id number] 2..840.1.404428.3.57[id number] 2..840.1.389960.3.57[id number] 2.16.840.1.173134.3.57[id number] 2.16840.1.755535.3.57[id number] 2.16.840.1.648119.3.579.2.1259Private Health InsuranceUnWood County [id number] 2.16.840.1.969550.3.579.2.531 Social History DateTypeDetailFacilityStart: 16-02-7162Ylpggyb smoking status NHISNever smoked tobaccoNOMS HealthcareStart: 07-03-2023 End: 82-87-8455Sqdwmaz use and exposureSmokeless tobacco non-userNOMS Healthcare Start: 11-14-2023 End: 13-00-9197Ccskjhv intakeEx-drinker (finding)[facility] HealthcareStart: 08-01-2023 End: 50-24-3461Jldrect of Social functionNOMS HealthcareStart: 08-01-2023 End: 93-61-6110Pvkakxq use panelNOMS HealthcareStart: 14-32-2160Jdlphoc Comment caffeine: 1-2 cups per dayNOSC HealthcareStart: 04-42-4161Cmp Assigned At Not on fileNOMS HealthcareStart: 51-33-9422Sewfjja smoking status NHISEx-smoker [facility] Work Phone: History of tobacco useCurrent smokerNOMS Healthcare History of tobacco useCigarette SmokerNOMS HealthcareStart: 08-20-2024 End: 04-93-8163Xhzljkbmg beverage intakeCurrent drinker of alcohol (finding)[facility] HealthTobacco smoking status NHISUnknown if ever smokedMercy Health Lorain Hospital Work Phone: Start: 57-08-8272NebEexjkx (finding)[facility] Hospitaltart: 77-40-4655Pva Assigned At BirthThe Surgical Hospital at Southwoodstart: 29-65-3078PkvIphtduJYES Healthcare Functional Status LxodCltrncgpdeBspmybUzremshz98-75-5840Nuchlru Health Questionnaire 2 item (PHQ- 2) [Reported][facility] HealthEofrrkkjiu10-05-6252Npbixls Health Questionnaire 2 item (PHQ- 2) [Reported][facility] HealthGhvdmnkota42-99-3386Chidxwt Health Questionnaire 2 item (PHQ- 2) [Reported][facility] HealthHwsyiqgqdq33-39-3584Npcwrpo Health Questionnaire 2 item (PHQ- 2) [Reported][facility] Work Phone: [facility] Clinical Notes 12-29-2023 to 08-12-2025 Note Date & KocyKbfzKffkdwop81-48-5406 History of Present illness Narrative* Blu Kothari [...] MOUTH EVERY DAY 30 tablet 13 [DISCONTINUED] [place]-3 Fatty Acids (Fish Oil) 1000 MG capsule [...] cancer Father Past Medical History: Diagnosis Date 'Duwpr-gsn-sdoiy' infant with signs of malnutrition (HHS-HCC) Arthritis [...] 11/11/2025) for Test/Lab Review. documented in this encounterCarondelet HealthUbtcuvhnmv74-29-4868 History of Present illness Narrative* Blu Kothari [...] 8 Multiple Vitamin (Multivitamin Adult) tablet Daily [place]-3 Fatty Acids (Fish Oil) 1000 MG capsule [...] cancer Father Past Medical History: Diagnosis Date 'Wxxtm-dcw-qqwrf' with signs of malnutrition Arthritis Cervical spondylolysis [...] Greater than 25 minutes was spent in vzxk-vj-xiaq consultation and coordination of care. Follow up in about 6 months (around 09/25/2025) for Routine F/U. documented in this encounterCarondelet HealthVpwnceeglh58-60-6226 History of Present illness Narrative* Blu Kothari [...] 8 Multiple Vitamin (Multivitamin Adult) tablet Daily [place]-3 Fatty Acids (Fish Oil) 1000 MG capsule [...] cancer Father Past Medical History: Diagnosis Date 'Kowcs-nqk-aqemi' infant with signs of malnutrition Arthritis Cervical [...] 03/28/2025) for Test/Lab Review. documented in this encounterCarondelet HealthOtcidyksdk09-09-1943 History of Present illness Narrative* Blu Kothari [...] 8 Multiple Vitamin (Multivitamin Adult) tablet Daily. [place]-3 Fatty Acids (Fish Oil) 1000 MG capsule [...] cancer Father Past Medical History: Diagnosis Date 'Xmbeq-awr-jurpf' with signs of malnutrition Arthritis Cervical spondylolysis [...] 03/04/2025) for Test/Lab Review. documented in this encounterCarondelet HealthZkcejbuxmj90-64-2998 History of Present illness Narrative* MARIYA David [...] Referral Location: [facility] Scheduling Requested Specialty: Physical Therapy Number of [...] for requiring urgent evaluation. documented in this encounterCarondelet HealthTuexuxvuaw80-12-0314 History of Present illness Narrative* MARIYA David [...] STATES SHE DOES HAVE THERAPY SCHEDULED @ [facility] 12/06/24 IF [address] IS [address] DRIVE BY THEN OTHERWISE SHE WILL SCHEDULE WITH [facility] AT [facility]. PRESENTS WEARING SLING TODAY, INCORRECTLY. [...] Referral Reason: Specialty Services Required Referral Location: [facility] Scheduling Requested Specialty: Physical Therapy Number of Visits Requested: 1 ASSESSMENT: ICD-10-CM 1. S/P arthroscopy of right shoulder Z98.890 Ambulatory referral to Physical Therapy S/p rotator cuff repair and SAD Assessment & Plan 1. Post-operative status following right shoulder arthroscopy, rotator cuff repair, and subacromialdecompression. She has expressed a preference for outpatient therapy at [facility]. Given her satisfactory passive and active range [...] for requiring urgent evaluation. documented in this encounterCarondelet HealthFzrnhcpecm75-47-0221 History of Present illness Narrative* MARIYA David [...] for requiring urgent evaluation. documented in this [facility]12-12-2024 Instructions* Patient Instructions* MARIYA David - 11/04/2024 [...] schedule as soon aspossible documented in this [facility]11-26-2024 Telephone encounter Note* Telephone Encounter - Isabel Leroy NP - 10/19/2024 3:38 PM EST Post op pain rx. PDMP reviewed [facility] HealthVvobfxxmti33-59-0597 Miscellaneous Notes* Telephone Encounter - Isabel Leory NP - 10/19/2024 3:38 PM EST Post op pain rx. PDMP reviewed documented in this encounterCarondelet HealthRvehghgptz07-63-7146 History of Present illness Narrative* MARIYA David - 09/23/2024 8:30 AM EDT Images from the original note were not included. GENERAL HISTORY AND PHYSICAL: NAME: Miguel Gonzalez : 1955 HISTORY OF PRESENT ILLNESS: Miguel Gonzalez is an 69 y.o. @ female. Here for surgery instructions - (R) SHOULDER SCOPE 10/20/2024 @CALLIE PAST MEDICAL HISTORY: Past Medical History: Diagnosis Date 'Gcdwm-owg-suhit' with signs of malnutrition Arthritis Cervical spondylolysis [...] food Multiple Vitamin (Multivitamin Adult) tablet Daily [place]-3 Fatty Acids (Fish Oil) 1000 MG capsule [...] Brace was dispensed to the patient and [facility] Patient Agreement was completed and signed. Warranty informationwas given and explained to the patient with good understanding. Proper care and fitting was also explained to the patient with good understanding. Follow up for 11/04 @1:30pm w/aline in [place]. documented in this encounterCarondelet HealthSvqepepqhe74-83-4047 History of Present illness Narrative* Jr. Son Waite, DO - 09/15/2024 8:15 AM EDT Images from the original note were not included. HISTORY OF PRESENT ILLNESS: EST PT Miguel Gonzalez is an 69 y.o. @ female. (EST PT) RECHECK (R) SHOULDER ; S/P HEP XRAYS, 07/27/24 IN [facility] MRI 08/11/24 IN [facility] NO MDP / PREDNISONE NO CORTISONE [...] food Multiple Vitamin (Multivitamin Adult) tablet Daily [place]-3 Fatty Acids (Fish Oil) 1000 MG capsule [...] intervention. Son Waite D.O. documented in this encounterCarondelet HealthQfcwlsvmtr91-57-5989 Telephone encounter Note* Telephone Encounter - Tami Tucker - 08/23/2024 9:41 AM EDT Spoke with patient she will see 09/15 for her next scheduled appt. [facility] HealthKwveyjalkb75-81-3194 Miscellaneous Notes* Telephone Encounter - Tami Tucker - 08/23/2024 9:41 AM EDT Spoke with patient she will see 09/15 for her next scheduled appt. * Telephone Encounter - Tami Tucker - 08/23/2024 9:00 AM EDT Patient left requesting to go ahead and schedule her sx. Please advise [phone]. documented in this encounterCarondelet HealthTbarjzyxpg48-56-8361 Telephone encounter Note* Telephone Encounter - Tami Tucker - 08/23/2024 9:00 AM EDT Patient left requesting to go ahead and schedule her sx. Please advise [phone]. [facility] HealthKlahvwjxcs70-11-0435 History of Present illness Narrative* MARIYA Morrison [...] 3 Multiple Vitamin (Multivitamin Adult) tablet Daily. [place]-3 Fatty Acids (Fish Oil) 1000 MG capsule [...] cancer Father Past Medical History: Diagnosis Date 'Upyij-wxm-rfcrr' infant with signs of malnutrition Arthritis Cervical spondylolysis GERD (gastroesophageal reflux disease) Hypertension ([facility]/HCC) Shingles Past Surgical History: Procedure Laterality Date [...] Do you have a medical power of tax attorney?: Yes Objective : BP 138/86 Pulse [...] right shoulder The patient is seeing a emergency medical service manager for this condition, treatment is deferred to that specialist. Correspondence from that specialist and any available testing were reviewed during today's visit. Follow up in about 3 months (around 11/19/2024) for Medication Follow Up. Electronically signed by Alexia Reid PA-C on August 20, 2024 documented in this encounterCarondelet HealthKfuhlwkegc86-55-9982 History of Present illness Narrative* Jr. Son Guerrero Jonmilena, DO - 08/13/2024 8:30 AM EDT HISTORY OF PRESENT ILLNESS: EST PT Miguel Gonzalez is an 69 y.o. @ female. (EST PT ; LAST APPT W/ ISABEL) RECHECK (R) SHOULDER ; HERE FOR MRI RESULTS 08/11/24 IN [facility] XRAYS, 07/27/24 IN [facility] MRI 08/11/24 IN [facility] NO MDP / PREDNISONE NO CORTISONE [...] food Multiple Vitamin (Multivitamin Adult) tablet Daily [place]-3 Fatty Acids (Fish Oil) 1000 MG capsule [...] she states that she is going to [place] in 2 weeks and then her is scheduled to consult at [facility] 09/10 ; patient would like to [...] scope. Son Waite D.O. documented in this encounterCarondelet HealthJlifqankmk87-63-0575 History of Present illness Narrative* Isabel Leroy, [...] MEDICAL HISTORY: Past Medical History: Diagnosis Date 'Szrku-bol-dftoh' infant with signs of malnutrition Arthritis Cervical [...] food Multiple Vitamin (Multivitamin Adult) tablet Daily [place]-3 Fatty Acids (Fish Oil) 1000 MG capsule [...] develop for requiring urgent evaluation. Isabel Leroy APRN-PRODUCE SPECIALIST documented in this encounterCarondelet HealthYtuiutubtf55-08-0469 History of Present illness Narrative* Blu Kothari [...] 3 Multiple Vitamin (Multivitamin Adult) tablet Daily. [place]-3 Fatty Acids (Fish Oil) 1000 MG capsule [...] cancer Father Past Medical History: Diagnosis Date 'Libyc-kep-zzyfk' infant with signs of malnutrition Arthritis Cervical [...] for this patient. Elevated LDL cholesterol level ([facility]) Shoulder capsulitis, right - Ambulatory referral to Orthopaedic Surgery; Future Follow up for As Previously Scheduled. documented in this encounterCarondelet HealthRutvmooedh86-42-4355 Telephone encounter Note* Telephone Encounter - MARIYA Morrison - 12/29/2023 8:01 AM EST sent [facility] HealthTizfgeeifw57-39-5170 Miscellaneous Notes* Telephone Encounter - MARIYA Morrison - 12/29/2023 8:01 AM EST sent documented in this encounterCarondelet HealthEvaluation note* Diagnosis Cervical spondylosis without myelopathy- Primary documented in this encounter [facility] HealthcareEvaluation note* Diagnosis Internal derangement of right shoulder- Primary documented in this encounter [facility] HealthcareEvaluation note* Diagnosis Pre-op examination- Primary documented in this encounter [facility] HealthcareEvaluation note* Diagnosis Internal derangement of right shoulder- Primary documented in this encounter [facility] HealthcareEvaluation note* Diagnosis S/P arthroscopy of right shoulder- Primary documented in this encounter [facility] HealthcareEvaluation note* Diagnosis Cervical spondylosis without myelopathy- Primary Age-related osteoporosis without current pathological fracture ([facility]) Primary hypertension ([facility]) Unspecified essential hypertension Gastroesophageal reflux disease without esophagitis Esophageal reflux Lumbosacral spondylosis with radiculopathy Elevated LDL cholesterol level ([facility]) Shoulder capsulitis, right documented in this encounter [facility] HealthcareEvaluation note* Diagnosis Internal derangement of right shoulder- Primary Right shoulder pain, unspecified chronicity documented in this encounter [facility] HealthcareEvaluation note* Diagnosis Internal derangement of right shoulder- Primary documented in this encounter [facility] HealthcareEvaluation note* Diagnosis Medicare annual wellness visit, [...] of right shoulder documented in this encounter [facility] HealthcareEvaluation note* Diagnosis S/P arthroscopy of right shoulder- Primary documented in this encounter [facility] HealthcareEvaluation note* Diagnosis S/P arthroscopy of right shoulder- Primary documented in this encounter [facility] HealthcareEvaluation note* Diagnosis Lumbosacral spondylosis with radiculopathy- Primary Right flank pain, chronic documented in this encounter [facility] HealthcareEvaluation note* Diagnosis Lumbosacral spondylosis with radiculopathy- Primary Right flank pain, chronic Other idiopathic scoliosis, thoracolumbar region Lumbar disc narrowing Degeneration of lumbar or lumbosacral intervertebral disc documented in this encounter [facility] HealthcareEvaluation noteNo assessment information availableMercy Health Lorain Hospital Work Phone: Evaluation note* Diagnosis Lumbosacral spondylosis with radiculopathy- Primary documented in this encounter [facility] HealthcareEvaluation note* Diagnosis Lumbosacral spondylosis with radiculopathy- Primary Primary hypertension Unspecified essential hypertension Cervical spondylosis without myelopathy Elevated LDL cholesterol level documented in this encounter [facility] HealthcareReason for referral (narrative)* Consultation (Routine) - Pending ReviewSpecialtyDiagnoses / ProceduresReferred By ContactReferred To Contact Orthopaedic Surgery Diagnoses Shoulder capsulitis, right Blu Kothari MD [address] [facility] [address] [place] [address] April Mercedes PA [address] [facility] [address] [place] [address] Referral IDStatusReasonStart DateExpiration DateVisits RequestedVisits [id number] Review Specialty Services Required / [facility] [...] shoulder right wo IV contrast Isabel Leroy, PRODUCT SUPPORT MANAGER [address] [place] [address] [address] [address] Referral IDStatusReasonStart DateExpiration DateVisits RequestedVisits [id number]/3/20243/ Chief Complaint and Reason for Visit Chief Complaint Admit Date M47.27 M41.25 M51.369 March 18, 2025 1 0:57am Additional Source Comments INFORMATION SOURCE (unrecogn ized section and content) DATE CREATED AUTHOR 12/29/2020 [facility] DATE CREATED AUTHOR AUTHOR'S ORGANIZ ATION 07/09/2021 [facility] DATE CREATED AUTHOR AUTHOR'S ORGANIZ ATION 04/09/2025 [facility] DATE CREATED AUTHOR AUTHOR'S ORGANIZ ATION 08/10/2025 [facility] DATE CREATED AUTHOR AUTHOR'S ORGANIZ ATION 08/13/2025 [facility] DATE CREATED AUTHOR AUTHOR'S ORGANIZ ATION 08/14/2025 [facility] Reason for Visit (unrecogniz ed section and content) ReasonCommentsMed RefillReasonCommentsPainReasonCommentsPainPost-opReason CommentsFollow-upPain medHypertensionShoulder PainMed RefillTramadol--[facility] ReasonCommentsPainReasonOnset PwnfWzfvjptbRuoosyf02/30/2024ReasonCommentsPost-op ReasonCommentsFollow-upPain medHypertensionBack PainReasonCommentsFlank Pain ResultsCt scanReasonCommentsHypertensionMed RefillMobic,crestor,amlodipine-- mail order Care Teams (unrecognized sec tion and content) Team MemberRelationshipSpecialtyStart DateEnd Date Blu Kothari MD [address] [place] [address] PCP - GeneralInternal Medicine04/01/23am MemberRelationshipSpecialtyStart Date End Date Blu Kothari MD [address] [place] [address] PCP - GeneralInternal Medicine04/01/23am MemberRelationshipSpecialtyStart Date End Date Blu Kothari MD [address] [facility] [address] [place] [address] PCP - GeneralInternal Medicine04/01/23am MemberRelationshipSpecialtyStart Date End Date Blu Kothari MD [address] [place] [address] PCP - GeneralInternal Medicine04/01/23am MemberRelationshipSpecialtyStart Date End Date Blu Kothari MD [address] [facility] [address] [place] [address] PCP - GeneralInternal Medicine04/01/23am MemberRelationshipSpecialtyStart Date End Date Blu Kothari MD [address] [place] [address] PCP - GeneralInternal Medicine04/01/23am MemberRelationshipSpecialtyStart Date End Date Blu Kothari MD [address] [place] [address] PCP - GeneralInternal Medicine04/01/23Team MemberRelationshipSpecialtyStart Date End Date Blu Kothari MD [address] [place] [address] PCP - GeneralInternal Medicine04/01/23Team MemberRelationshipSpecialtyStart Date End Date Blu Kothari MD [address] [place] [address] PCP - GeneralInternal Medicine04/01/23Team MemberRelationshipSpecialtyStart Date End Date Blu Kothari MD [address] [place] [address] PCP - GeneralInternal Medicine04/01/23Team MemberRelationshipSpecialtyStart Date End Date Blu Kothari MD [address] [place] [address] PCP - GeneralInternal Medicine04/01/23Team MemberRelationshipSpecialtyStart Date End Date Blu Kothari MD [address] [place] [address] PCP - GeneralInternal Medicine04/01/23Team MemberRelationshipSpecialtyStart Date End Date Blu Kothari MD [address] [place] [address] PCP - GeneralInternal Medicine04/01/23 Blu Kothari MD [address] [place] [address] PCP - ACO [facility]12/31/24Team MemberRelationshipSpecialtyStart DateEnd Blu Kothari MD [address] [place] [address] PCP - GeneralInternal Medicine04/01/23 Blu Kothari MD [address] [place] [address] PCP - ACO [facility]12/31/24Team MemberRelationshipSpecialtyStart DateEnd Date Blu Kothari MD [address] [place] [address] [facility] - [facility]/23 Blu Kothari MD [address] [place] [address] PCP - O [facility]12/31/24Team MemberRelationshipSpecialtyStart DateEnd Date Blu Kothari MD [address] [place] [address] [facility] - [facility]04/01/23 Blu Kothari MD [address] [place] [address] [facility]Team MemberRelationshipSpecialtyStart DateEnd Date Blu Kothari MD [address] [place] [address] [facility] - [facility]04/01/23 Blu Kothari MD [address] [place] [address] PCP - [facility]12/31/24Team MemberRelationshipSpecialtyStart DateEnd Date Blu Kothari MD [address] [facility] [address] [place] [address] [facility] - [facility]04/01/23 Blu Kothari MD [address] [facility] [address] [place] [address] PCP - [facility]12/31/24 Team Status: Active Member Role Status Dates Blu Kothari II MD Primary Care Provider Active Team Status: Inactive Member Role Status Dates Blu Kothari II MD Primary Care Provid er, Attending Provider Active Start: March 18, 2025 End: March 18, 2025Team MemberRelationshipSpecialtyStart DateEnd Date Blu Kothari MD [address] [facility] [address] [place] [address] PCP - [facility]04/01/23 Blu Kothari MD [address] [facility] [address] [place] [address] PCP - [facility]12/31/24Team MemberRelationshipSpecialtyStart DateEnd Date Blu Kothari MD [address] [facility] [address] [place] [address] PCP - [facility]04/01/23 Blu Kothari MD [address] [facility] [address] [place] [address] PCP - O [facility] (unrecognized section [...] BE BASED ON THE PRIMARY CLINICAL RECORDS. [facility], [facility]. provides no warranty or guarantee of the accuracy or completeness of information in this document.
== END 2025-11-21 09:12 | disposition home or self-care (01) ==
LOC: RAD 09:11
PROVIDERS: PCP Internal Medicine; Visit Provider Internal Medicine
DX: E28.39 Other primary ovarian failure (principal); M85.88 Other specified disorders of bone density and structure, other site
CPT/HCPCS: 77080